=== PATIENT | male | born 1930 | race Caucasian/White ===

== ENCOUNTER 2016-09-06 10:36 | Inpatient (IN) ==
[2016-09-06] MEDS ORDERED: ONDANSETRON 4 MG/2 ML VIAL IV STA (11:20)
[2016-09-06] MEDS ORDERED: MECLIZINE 25 MG TABLET PO STA (11:20)
[2016-09-06] MEDS ORDERED: SODIUM CHLORIDE 0.9% 500 ML IV STA (11:20)
--- NOTE | 2016-09-06 11:36 | Emergency Department Note ---
IJan Mantricia, am scribing for, and in the presence of, Eric Gomes MD 11:24. Mireya Schilling Charles R, MD, personally performed the services described in this documentation, ascribed by Brandon Montoya in my presence, and it is both accurate and complete 136 . Arrival - Arrival Chief Complaint: Neuro Stated Complaint: possible stroke ED Nursing Triage Note: Bilat leg weakness and confusion onset yesterday - pt states that onset of s/s was approx 1500 - pt states that he made it to the bed but was unable to find his phone to call for help - pt states that he was able to get to his phone this am and called his nephew - pt is awake and alert - oriented at time of triage - accu check at time of triage 247 Mode of Arrival: Wheelchair Limitations: No Limitations Source: Patient Time Seen by Provider: 09/06/16 11:03 - History of Present Illness HPI Narrative: Pt is an 86 y/o white male arriving to ED by EMS with c/o possible CVA that may have occurred yesterday. Pt states that yesterday around 1530, he felt like something "hit him on top of his head" and he became very dizzy. He states the reason he did not come to ED yesterday is because he lives alone and he was not able to find his phone. Pt states that he now has slurred speech and staggers when he walks since the episode last night; this highly not normal since he runs 2 miles every day. Pt reports that he had open heart surgery in 2002. He denies smoking and drinking. Pt also denies SOB and chest pain. He reports no other complaints to ED. Onset (ago): hour(s) Consistency: constant Severity: moderate Allergies/Adverse Reactions: Allergies Allergy/AdvReac Type Severity Reaction Status Date / Time Sulfa (Sulfonamide Allergy Unknown/Unable Verified 11/23/14 16:00 Antibiotics) to obtain Home Medications: Home Medications Medication Instructions Recorded Confirmed Type Aspirin/Calcium Carbonate/Mag 325 mg PO DAILY 11/23/14 11/23/14 History [Aspirin Buffered 325 mg Tab] Furosemide [Furosemide] 1 tablet PO DAILY 11/23/14 11/23/14 History Glimepiride 2 mg PO AC BREAKFAST 11/23/14 11/23/14 History Metoprolol Succinate 25 mg PO BID 11/23/14 11/23/14 History NIFEdipine [Nifedipine ER] 30 mg PO DAILY 11/23/14 11/23/14 History Simvastatin 80 mg PO AC SUPPER 11/23/14 11/23/14 History cloNIDine HCl [Clonidine HCl] 0.2 mg PO BID 11/23/14 11/23/14 History glyBURIDE MICRONIZED [Glynase] 6 mg PO BID W/MEALS 11/23/14 11/23/14 History metOLazone [Metolazone] 2.5 mg PO QOTHER DAY 11/23/14 11/23/14 History Review of System - Review of System 12 point system: reviewed and no additional remarkable complaints except as stated - Review of System Constitutional: Absent: chills, diaphoresis Eyes: Absent: discharge, pain Head/Ears/Nose/Throat: Absent: earache Respiratory: Absent: cough, respiratory distress, wheezing Cardiovascular: Absent: chest pain, palpitations, dyspnea on exertion Gastrointestinal: Absent: abdominal pain, nausea, vomiting, diarrhea Genitourinary male: Absent: urgency, dysuria Musculoskeletal: Absent: arm pain, back pain, leg pain, neck pain Skin: Absent: rash, lesions Neurological: Present: vertigo, other (possible CVA). Absent: headache, weakness Psychiatric: Absent: anxiety, depression Medical,Surgical,& Family Hx - Medical History Cardio: History of: [place], Pacemaker Endocrine: History of: Diabetes Mellitus (NIDDM) - Surgical History Cardiac Surgeries: Sugical HX of: Cardiac Surgery, Carotid Endarterectomy HEENT Surgeries: Surgical HX of: Carotid Endarterectomy - Social History Smoking Status: Never smoker Frequency of Alcohol Use: None Type of Drug Use: None Exam Vital Signs: Vital Signs Temperature 97.1 F L 09/06/16 11:18 Pulse Rate 49 L 09/06/16 11:38 Respiratory Rate 16 09/06/16 11:38 Blood Pressure 106/51 09/06/16 11:38 O2 Sat by Pulse Oximetry 97 09/06/16 11:38 - General General appearance: alert, in no apparent distress - Head Head exam: Present: atraumatic, normocephalic, normal inspection - Eye Eye exam: Present: normal appearance, PERRL, EOMI, nystagmus (vertical and horizontal) - Expanded Eye Exam Pupils: Right: irregular (dialated) - ENT ENT exam: Present: normal exam, normal oropharynx, mucous membranes moist, TM's normal bilaterally, normal external ear exam, other (speaks with a thick tongue) - Neck Neck exam: Present: normal inspection, full ROM, trachea midline. Absent: tenderness - Chest Chest inspection: Present: normal inspection, symmetric chest wall rise. Absent : tenderness - Respiratory Respiratory exam: Present: normal lung sounds bilaterally - Cardiovascular Cardiovascular exam: Present: normal rhythm, bradycardia, murmur (4/6 systolic) - Abdominal Exam Abdominal exam: Present: soft, normal bowel sounds. Absent: distention, tenderness, guarding, rebound - Extremities Exam Extremities exam: Present: normal inspection, full ROM, normal capillary refill. Absent: tenderness, pedal edema - Back Exam Back exam: Present: normal inspection, full ROM. Absent: tenderness - Neurological Exam Neurological exam: Present: alert, oriented X3, CN II-XII intact, reflexes normal - Psychiatric Psychiatric exam: Present: normal affect, normal mood - Skin Skin exam: Present: warm, dry, intact, normal color Course - Consultations Consultation #1: Hospitalist will admit patient Time: 12:47 Results - Labs CBC & BMP: 09/06/16 11:40 09/06/16 11:40 Lab Results: I have reviewed the patients labs Labs: Laboratory Tests 09/06/16 09/06/16 09/06/16 11:40 11:40 11:40 WBC 17.0 H Hgb 13.8 L Hct 39.6 L Plt Count 123 L Neut % (Auto) 88.1 H Lymph % (Auto) 5.1 L Neut # (Auto) 14.9 H Lymph # (Auto) 0.[address] [place] # (Auto) 1.0 H Lymphocytes 11 L BUN 53 H Creatinine 2.40 H BUN/Creatinine Ratio 22.00 H Glucose 274 H Total Bilirubin 1.40 H Troponin I 0.049 H Albumin 3.3 L Albumin/Globulin Ratio 1.0 L Serum Alcohol < 15 L - Diagnostic Findings Procedure: Chest x-ray: report reviewed by me (Mild cardiomegaly status post sternotomy. Chronic change of the lungs. scattered scarlike densities noted within the lower lungs bilaterally. Question small right pleural fluid. Visualized osseous and surrounding soft tissue structures demonstrate no acute abnormality.), CT: report reviewed by me (Head: No acute intracranial abnormality demonstrated. Global volume loss and probable chronic microvascular ischemic change. ) Disposition Clinical Impression: Possible cerebral CVA, Dizziness, Unsteady gait, Slurred speech, Bradycardia, Sick sinus syndrome, Leukocytosis, Renal failure, Dehydration, Near syncope Case discussed with: patient, patient's family Disposition: Still a Patient Condition: Stable Time of Disposition: 12:49 NIH Stroke Score - Stroke Score Initial Assessment Level of Consciousness: Alert Level of Consciousness Questions: Answers Both Correctly Level of Consciousness Commands: Obeys Both Correctly Best Gaze: Normal Visual Patel: No Visual Loss Facial Palsy: Normal Motor - Right Arm: No Drift Motor - Left Arm: No Drift Motor - Right Leg: No Drift Motor - Left Leg: No Drift Limb Ataxia: Absent Sensory (Pin Prick): Normal Best Language: Mild to Moderate Aphasia Dysarthria: Mild to Moderate Extinction / Inattention (Neglect): No Neglect NIH Stroke Score: 2
--- NOTE | 2016-09-06 11:41 | CT Report ---
CT head/brain wo con Indication: Dizziness Comparison: None Technique: Multiple axial tomographic images of the brain were obtained without the use of intravenous contrast. Findings: Midline structures are nondisplaced. Moderate global volume loss present. Mild periventricular and subcortical hypoattenuation noted which is nonspecific but consistent with chronic microvascular ischemic change. No acute intracranial hemorrhage. Atherosclerotic calcifications present. Paranasal sinuses and mastoid air cells are clear. IMPRESSION: No acute intracranial abnormality demonstrated. Global volume loss and probable chronic microvascular ischemic change. The CT exam was performed using one or more of the following dose reduction techniques: Automated exposure control, adjustment of the mA and/or kV according to patient size, or use of iterative reconstruction technique. PROCEDURE INTERPRETED AT [facility] DEPARTMENT OF RADIOLOGY Final Report Signed by: Dr Petr Wei
--- NOTE | 2016-09-06 11:49 | XRay Report ---
XR chest 1V portable Indication: SOB Comparison: None Technique: Single frontal view of the chest. Findings: Mild cardiomegaly status post sternotomy. Chronic change of the lungs. Scattered scarlike densities noted within the lower lungs bilaterally. Question small right pleural fluid. Visualized osseous and surrounding soft tissue structures demonstrate no acute abnormality. IMPRESSION: As above. PROCEDURE INTERPRETED AT [facility] DEPARTMENT OF RADIOLOGY Final Report Signed by: Dr Petr Wei
[2016-09-06 11:58] LABS: Basophils % 0.2 % (0.0-0.8); Hematocrit 39.6 VOL% (42.0-52.0); Hemoglobin 13.8 GM/DL (14.0-18.0); Immature Granulocytes % 0.6 %; Immature Granulocytes Absolute 0.11 #; Lymphocytes # 0.9 10*3/uL (1.4-4.0); Lymphocytes % 5.1 % (21.2-54.2); Mean Corpuscular HGB Conc 34.8 GM/DL (32-36); Mean Corpuscular Hemoglobin 31 PG (27-34); Mean Corpuscular Volume 88.2 FL (87-102); Mean Platelet Volume 10.8 FL (9.6-12.0); Neutrophils # 14.9 10*3/uL (1.4-7.4); Neutrophils % 88.1 % (38.7-73.9); Platelet Count 123 T/CUMM (130-400); Red Blood Count 4.49 MC/CUMM (3.8-5.5); Red Cell Distribution Width 13.3 % (9.3-17.3)
--- NOTE | 2016-09-06 12:00 | EKG Report ---
Stationary ECG Study [facility] ER Test Date: 09/06/2016 11:58:25 AM Pat Name: ISA GRAF Department: Room: Gender: M Facilities Assistant: KAREN : 1930 Requested by: Eric Ward Order Number: [id number] Reading MD: NIDIA BALL Intervals [place] Rate: 46 P: 258 GA: 145 QRS: 34 QRSD: 76 T: 241 QT: 494 QTc: 453 Interpretive Statements Typical atrial flutter with bradycardia, likely junctional escape ST depression, possible digoxin effect Electronically Signed On 09-06-16 21:58:01 CDT by NIDIA BALL [email or web address]
[2016-09-06 12:08] LABS: INR 1.1; PT Patient Result 12.1 SECS
[2016-09-06 12:16] LABS: Band Neutrophils 3 % (0-10); Lymphocytes 11 % (20-55); Segmented Neutrophils 78 % (50-85); Total Cells Counted 100
[2016-09-06 12:17] LABS: Elliptocytes Few; Hypochromasia Slight; Platelet Estimate Normal
[2016-09-06 12:19] LABS: Albumin 3.3 G/DL (3.4-5.0); Bilirubin,Total 1.4 MG/DL (0.2-1.0); Calcium 9.2 MG/DL (8.5-10.1); Magnesium 1.9 MG/DL (1.8-2.4); Osmolality,Calculated 298.7 MOS/KG (273-304); Potassium 4.2 MMOL/L (3.5-5.1); Total Protein 6.5 G/DL (6.4-8.3); Troponin I Only 0.049 NG/ML (0.00-0.045)
[2016-09-06] MEDS ORDERED: MECLIZINE 25 MG TABLET ONE (12:22)
[2016-09-06 12:58] LABS: Sedimentation Rate-Westergren 34 MM/HR (0-20)
[2016-09-06] MEDS ORDERED: DEXTROSE 50% 25 GM/50 ML VIAL IV PRN (14:30)
[2016-09-06] MEDS ORDERED: LACTULOSE 20 GM/30 ML UDCUP PO PRN (14:30)
[2016-09-06] MEDS ORDERED: GLUCAGON 1 MG VIAL IM PRN (14:30)
[2016-09-06] MEDS ORDERED: ACETAMINOPHEN 325 MG TABLET PO PRN (14:30)
[2016-09-06] MEDS ORDERED: ONDANSETRON 4 MG/2 ML VIAL IV PRN (14:30)
[2016-09-06 14:44] LABS: Apearance,Urine CLEAR (Clear); Bacteria,Urine Occasional /HPF (Few); Bilirubin,Urine Negative (Negative); Blood, Urine Negative (Negative); Glucose,Urine (UA) 150 mg/dL (Negative); Hyaline Casts,Urine 5 /LPF (0-3); Ketones,Urine Negative (Negative); Nitrite,Urine Negative (Negative); Protein,Urine Negative; RBC,Urine 1 /HPF (0-4); Squamous Epithelial Cell,Urine Occasional /HPF (0-10); Urine Color Yellow (Yellow); Urine Specific Gravity 1.015 (1.001-1.035); Urine Urobilinogen < 2.0 EU/DL (0.2-1.0); WBC,Urine 1 /HPF (0-6)
[2016-09-06 14:48] LABS: Barbiturates Screen,Urine Negative (Negative); Benzodiazepines Screen,Urine Negative (Negative); Cannabinoid Screen,Urine Negative (Negative); Opiate Screen,Urine Negative (Negative); Phencyclidine Screen,Urine Negative (Negative)
[2016-09-06] MEDS ORDERED: ENOXAPARIN 30 MG/0.3 ML SYRINGE SUBCUT SCH (15:00)
[2016-09-06 15:10] LABS: Risk Ratio 2.35; VLDL CHOLESTEROL 19.6 MG/DL
--- NOTE | 2016-09-06 15:26 | Hospitalist History & Physical ---
Assessment and Plan (1) Atrial flutter by electrocardiogram Status: Acute Assessment and plan: This appears to be new onset. Patient is being admitted to the telemetry unit for close observation. Patient is bradycardic at 46 bpm. Echocardiogram and carotid Dopplers have been ordered. Cardiology has been consulted. Current Visit: Yes (2) Syncope Status: Acute Assessment and plan: This is an 86-year-old male admitted to loss of consciousness yesterday. His CT on admission is negative for acute intracranial abnormality. Obtain echocardiogram and carotid ultrasound in a.m. Consult cardiology. Current Visit: Yes (3) Leukocytosis Status: Acute Assessment and plan: White count 17. Etiology unclear. Blood cultures are pending. Start empiric antibiotic coverage Current Visit: Yes (4) Hypertension Status: Acute Assessment and plan: Appears to be well controlled. Continue home meds. Current Visit: Yes (5) Diabetes mellitus Status: Acute Assessment and plan: Accu-Cheks ACHS. Sliding scale insulin per protocol. Current Visit: Yes History of Present Illness Chief complaint: syncope, weakness, ataxia History of present illness: Mr. Frazier is a 86 year old male with a past medical history significant for coronary artery disease, hypertension, diabetes mellitus, hyperlipidemia who presents to the [facility] ED with complaints of possible CVA with possible onset yesterday. The patient reports that around 1530 yesterday he felt a "pop on top of his head" and experienced an apparent syncopal episode. The patient reports that he was lying in his bed when he "came to". He also notes that he was confused stating that he dreamed of his sister who has been for quite some time now. He also states that he cannot find his phone and was unable to contact anyone prior to this morning as he does live alone. He states that he has had approximately 2 weeks of dizziness and the top of his head. This is new for him as he states that he typically gets dizzy when he turns his head to the right. He has a history of coronary artery disease and has had CABG as well as a carotid endarterectomy performed. He states that he is relatively active and exercises daily walking 2-3 miles per day. Patient admits to experiencing lightheadedness and dizziness with associated headache but denies any of that today. On admission, the patient was ataxic and had slurred speech. However, on exam, the patient's speech was fluid and coherent. His motor strength was equal bilaterally. The patient states he feels as though he could walk if he wanted to. Preliminary labs reveal elevated white count at 17.0, troponin 0.049, BNP 589, BUN 53, creatinine 2.40, glucose 274. Urinalysis and toxicology are unremarkable. Patient is a full code. Case has been discussed with Dr. Gomes as well as Dr. Tay and the patient will be admitted to the hospital medicine service for further evaluation and treatment. Neurology will be consulted. Home Medications Medication Instructions Recorded Confirmed Type Furosemide [Furosemide] 1 tablet PO DAILY 11/23/14 11/23/14 History Metoprolol Succinate 25 mg PO BID 11/23/14 11/23/14 History NIFEdipine [Nifedipine ER] 30 mg PO DAILY 11/23/14 11/23/14 History Simvastatin 80 mg PO AC SUPPER 11/23/14 11/23/14 History cloNIDine HCl [Clonidine HCl] 0.2 mg PO BID 11/23/14 11/23/14 History glyBURIDE MICRONIZED [Glynase] 6 mg PO BID W/MEALS 11/23/14 11/23/14 History metOLazone [Metolazone] 2.5 mg PO QOTHER DAY 11/23/14 11/23/14 History Aspirin EC Tab 325 mg PO DAILY 09/06/16 09/06/16 History Glimepiride [Glimepiride] 4 mg PO BID 09/06/16 09/06/16 History Loratadine Tab [Claritin Tab] 10 mg PO DAILY PRN 09/06/16 09/06/16 History Niacin (Inositol Niacinate) 500 mg PO DAILY 09/06/16 09/06/16 History [Niacin 500 mg Capsule] Allergies Allergy/AdvReac Type Severity Reaction Status Date / Time Sulfa (Sulfonamide Allergy Unknown/Unable Verified 11/23/14 16:00 Antibiotics) to obtain Medical,Surgical,& Family Hx - Medical History Cardio: History of: [place], Pacemaker Endocrine: History of: Diabetes Mellitus (NIDDM) - Surgical History Cardiac Surgeries: Sugical HX of: Cardiac Surgery, Carotid Endarterectomy HEENT Surgeries: Surgical HX of: Carotid Endarterectomy - Family History Family History: Reports;: Family Diabetes, Family Heart Disease, Family Hypertension - Social History Smoking Status: Never smoker Frequency of Alcohol Use: None Type of Drug Use: None Marital Status: Lives With:: Alone Functional capacity: independent ambulation - Constitutional Constitutional: Present: headache(s). Absent: frequent falls, weakness - EENT Eyes: Present: requires corrective lense. Absent: blurry vision, loss of vision Ears: Absent: decreased hearing, ear pain Nose, mouth and throat: Present: headache(s). Absent: hoarseness, neck pain, vertigo - Cardiovascular Cardiovascular: Present: lightheadedness. Absent: chest pain at rest, chest pain with activity, dyspnea, dyspnea on exertion, edema, radiating jaw, neck or arm pain - Respiratory Respiratory: Absent: cough, dyspnea, hemoptysis, wheezing, pain on inspiration - Gastrointestinal Gastrointestinal: Present: change in bowel habits (decrease frequency of BM). Absent: abdominal pain, diarrhea, nausea, vomiting - Genitourinary Genitourinary: Absent: dysuria, flank pain, hematuria - Musculoskeletal Musculoskeletal: Absent: back pain, limited range of motion - Neurological Neurological: Present: abnormal gait, confusion, dizziness, syncope. Absent: numbness - Psychiatric Psychiatric: Absent: anxiety, depression - Endocrine Endocrine: Absent: cold intolerance, fatigue, heat intolerance - Hematologic/Lymphatic Hematologic/Lymphatic: Absent: easy bleeding, easy bruising Exam - Constitutional Vitals: Period Temp Pulse Resp BP Sys/Hurtado Pulse Ox Last 24 Hr 97.1 F-97.1 F 41-49 16-21 97-112/41-57 96-99 General appearance: normal weight, no acute distress - Head Head exam: Present: normal inspection, normocephalic, atraumatic. Absent: abrasion, laceration - Eye Eye exam: Present: EOMI. Absent: conjunctival injection, nystagmus, scleral icterus Pupils: Present: FATOUMATA. Absent: fixed, irregular - Respiratory Respiratory exam: Present: clear to auscultation bilaterally. Absent: rales, rhonchi, wheezes - Cardiovascular Cardiovascular exam: Present: bradycardia. Absent: carotid bruit, gallop, rubs - GI/Abdominal GI/Abdominal exam: Present: normal bowel sounds, soft. Absent: ascites, distended, mass, Monroe's sign, organomegaly, tenderness, rebound - Extremities Exam Extremities exam: Present: normal inspection, normal capillary refill, full ROM. Absent: edema - Back Exam Back exam: Present: normal inspection. Absent: CVA tenderness (L), CVA tenderness (R) - Neurological Exam Neurological exam: Present: alert, oriented X3, CN II-XII intact, reflexes normal. Absent: motor sensory deficit - Psychiatric Psychiatric exam: Present: normal affect, normal mood - Skin Skin exam: Present: normal color, warm, dry. Absent: abrasion, erythema, rash Results - Labs CBC & BMP: 09/06/16 11:40 09/06/16 11:40 Lab Results: I have reviewed the past 24 hour labs - EKG EKG results: interpreted by ERMD - Diagnostic Findings Procedure: Chest x-ray: image reviewed by me, report reviewed by me, CT: image reviewed by me, report reviewed by me Quality Measures - Stroke Onset of Symptoms Date: 09/05/16 Onset of Symptoms Time: 15:30 Symptom Onset Unknown: No
[2016-09-06] MEDS ORDERED: ENOXAPARIN 80 MG/0.8 ML SYRINGE SUBCUT ONE (17:54)
[2016-09-06] MEDS: INSULIN LISPRO 100 UNIT/ML SUBCUT SCH ×4 (20:20→22:37)
[2016-09-06] MEDS: GLIMEPIRIDE 4 MG TABLET PO SCH (22:25)
--- NOTE | 2016-09-06 22:27 | Ultrasound Report ---
US carotid duplex BI Indication: Syncope Comparison: None. Technique: Using transcutaneous probe, routine carotid arterial duplex ultrasound performed. Ultrasound images were captured and stored. Estimation of stenosis will be made using indirect NASCET criteria. Ultrasound images were captured and stored. Findings: Grayscale and color Doppler findings: Echogenic plaque is demonstrated within the right common carotid artery and carotid artery bulb. Overall amount appears small. Transverse images demonstrate minimal suggested stenosis. The left common carotid artery and carotid artery bulb additionally demonstrate echogenic plaque, small in amount, transverse images demonstrating minimal stenosis. Peak systolic velocities are as follows (centimeters per second): Right CCA: 83. Right proximal ICA: 135. Right distal ICA: 82. Right ICA/CCA ratio: 1.6. Left CCA: 100. Left proximal ICA: 105. Left distal ICA: 95. Left ICA/CCA ratio: 126. External carotid arteries: External carotid arteries are bilaterally patent. Vertebral arteries: Vertebral arteries bilaterally demonstrate antegrade flow. Impression: 1. Velocities within the proximal right cervical segment ICA following the range of 50-69% stenosis. Bradshaw scale transverse ultrasound images through this region suggest mild stenosis. CTA may be useful for further characterization. 09/06/2016 10:22 PM PROCEDURE INTERPRETED AT [facility] DEPARTMENT OF RADIOLOGY Final Report Signed by: Dr. Carlos Robert
[2016-09-06] MEDS: cefTRIAXone 1,000 MG in SODIUM CHLORIDE 0.9% 100 ML IV SCH (22:28)
[2016-09-06] MEDS: AZITHROMYCIN INJ 500 MG in SODIUM CHLORIDE 0.9% 250 ML IV SCH (23:48)
[2016-09-07 07:34] LABS: Calcium 8.3 MG/DL (8.5-10.1); Osmolality,Calculated 300.7 MOS/KG (273-304); Potassium 4.1 MMOL/L (3.5-5.1)
[2016-09-07] MEDS ORDERED: glyBURIDE MICRONIZED 6 MG TABLET PO SCH (08:00)
[2016-09-07] MEDS ORDERED: ASPIRIN EC 325 MG TABLET PO SCH (09:00)
[2016-09-07 09:19] LABS: Basophils % 0.3 % (0.0-0.8); Eosinophils # 0.1 10*3/uL (0.0-0.87); Hematocrit 38.6 VOL% (42.0-52.0); Hemoglobin 13.1 GM/DL (14.0-18.0); Immature Granulocytes % 0.9 %; Immature Granulocytes Absolute 0.12 #; Lymphocytes # 1.8 10*3/uL (1.4-4.0); Lymphocytes % 12.9 % (21.2-54.2); Mean Corpuscular HGB Conc 33.9 GM/DL (32-36); Mean Corpuscular Hemoglobin 30 PG (27-34); Mean Corpuscular Volume 88.3 FL (87-102); Monocytes # 0.5 10*3/uL (0.11-0.8); Monocytes % 3.7 % (1.7-12.7); Neutrophils # 11.3 10*3/uL (1.4-7.4); Neutrophils % 81.2 % (38.7-73.9); Platelet Count 107 T/CUMM (130-400); Red Blood Count 4.37 MC/CUMM (3.8-5.5); Red Cell Distribution Width 13.2 % (9.3-17.3); White Blood Count 13.9 T/CUMM (4-12)
[2016-09-07] MEDS: DOCUSATE SODIUM 100 MG CAPSULE PO PRN (09:58)
[2016-09-07] MEDS: GLIMEPIRIDE 4 MG TABLET PO SCH (09:58)
[2016-09-07] MEDS: PANTOPRAZOLE 40 MG TABLET PO SCH (09:58)
[2016-09-07] MEDS: NIACIN 500 MG TABLET PO SCH (09:58)
[2016-09-07] MEDS: INSULIN LISPRO 100 UNIT/ML SUBCUT SCH ×5 (09:59→22:31)
--- NOTE | 2016-09-07 12:21 | Cardiology Consult Note ---
Assessment and Plan - Time spent with patient Time spent with patient: Greater than 30 minutes (due to assessment, plan, and documentation) (1) Syncope Status: Acute Assessment and plan: SEE PLAN OF CARE LISTED BELOW Current Visit: Yes (2) Atrial flutter by electrocardiogram Status: Acute Assessment and plan: SEE PLAN OF CARE LISTED BELOW Current Visit: Yes (3) Bradycardia Status: Acute Assessment and plan: SEE PLAN OF CARE LISTED BELOW Current Visit: Yes (4) Coronary artery disease Status: Chronic Assessment and plan: SEE PLAN OF CARE LISTED BELOW Current Visit: Yes (5) Hypertension Status: Chronic Assessment and plan: SEE PLAN OF CARE LISTED BELOW Current Visit: Yes (6) Hyperlipidemia Status: Chronic Assessment and plan: SEE PLAN OF CARE LISTED BELOW Current Visit: Yes (7) Diabetes mellitus Status: Chronic Assessment and plan: SEE PLAN OF CARE LISTED BELOW Current Visit: Yes (8) Chronic kidney disease Status: Chronic Assessment and plan: SEE PLAN OF CARE LISTED BELOW Current Visit: Yes (9) Leukocytosis Status: Acute Assessment and plan: SEE PLAN OF CARE LISTED BELOW Current Visit: Yes History of Present Illness - Data of Consult Patient: known to practice within the last 3 years (followed by Dr. Goldsmith) Consult date: 09/06/16 Requesting Physician: Kody Hurt - Consult Narrative Reason for consult: syncope, aflutter History of present illness: FLEXIBLE NANNY: DR. GOLDSMITH Mr. Frazier is a 86 year old male with a history of coronary artery disease, hypertension, hyperlipidemia, type 2 diabetes mellitus, chronic kidney disease. He is status post coronary artery bypass grafting August 06 2001 with SINGH to the LAD and vein graft to the circumflex marginal and right coronary arteries. He is status post right carotid endarterectomy July 03, 2002. He is a former smoker having quit in 1996. He is active and walks 2-3 miles daily. On 09/05/2016 he was in his usual state of health and had returned home from [facility] when he felt like someone hit him on the top of his head and experienced an apparent syncopal episode. When he came to, he reports he could not walk and had to crawl down the young to his bed. He also notes that he was confused stating that he dreamed of his sister who has been for quite some time now. He also states that he could not find his phone and was unable to contact anyone prior to yesterday morning as he does live alone. He called his nephew and when his nephew arrived, he noticed that his uncle had an unsteady gait and slurred and stuttering speech. On exam today, Mr. Frazier has no noticeable deficits. His motor strength is equal bilaterally and his speech is fluid and coherent. CT scan of the head was negative for acute intracranial abnormalities. He is for MRI of the brain today. He denies a history of irregular heart rhythm but his EKG/telemetry shows atrial flutter with junctional escape. He has been bradycardic and his metoprolol is currently being held. He had some trivial troponin elevation in the setting of an elevated creatinine. Urine toxicology was negative. 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 CTA is recommended for further characterization. ASSESSMENT/PLAN: 1. SYNCOPE - Carotid doppler ultrasound reveals right ICA with 50-69% stenosis. CT of the brain was negative. He is for MRI of the brain for further evaluation. 2. ATRIAL FLUTTER - He is currently being anticoagulated with weight based Lovenox. Treatment is limited due to his bradycardia. Certainly if his bradycardia persisits, he may be a candidate for pacemaker implantation. 3. BRADYCARDIA - Will continue to hold zackery blocking agents. 4. CORONARY ARTERY DISEASE - He is status post coronary artery bypass grafting August 06 2001 with SINGH to the LAD and vein graft to the circumflex marginal and right coronary arteries. Denies recent chest pain, heaviness, or tightness. Denies recent dyspnea or dyspnea on exertion. 5. HYPERTENSION - Currently well controlled. Will continue to monitor and adjust accordingly. 6. HYPERLIPIDEMIA - Continue lipid lowering agent. FLP in AM. 7. DIABETES - [facility] is following. He is on accuchecks with sliding scale insulin. 8. CHRONIC KIDNEY DISEASE - Monitor BMP. Will try to avoid nephrotoxic agents. 9. LEUKOCYTOSIS - He has been started on empiric antibiotics. Blood cultures are pending. He has been afebrile. Dr. Ford to follow with further plan and addendum. CC: Federica Moreau MD - Home Medications and Allergies Home Medications: Home Medications Medication Instructions Recorded Confirmed Type Furosemide [Furosemide] 40 mg PO DAILY 11/23/14 09/06/16 History Metoprolol Succinate 25 mg PO BID 11/23/14 09/06/16 History NIFEdipine [Nifedipine ER] 30 mg PO DAILY 11/23/14 09/06/16 History Simvastatin 80 mg PO AC SUPPER 11/23/14 09/06/16 History cloNIDine HCl [Clonidine HCl] 0.2 mg PO BID 11/23/14 09/06/16 History glyBURIDE MICRONIZED [Glynase] 6 mg PO BID W/MEALS 11/23/14 09/06/16 History metOLazone [Metolazone] 2.5 mg PO QOTHER DAY 11/23/14 09/06/16 History Aspirin EC Tab 325 mg PO DAILY 09/06/16 09/06/16 History Glimepiride [Glimepiride] 4 mg PO BID 09/06/16 09/06/16 History Loratadine Tab [Claritin Tab] 10 mg PO DAILY PRN 09/06/16 09/06/16 History Niacin (Inositol Niacinate) 500 mg PO DAILY 09/06/16 09/06/16 History [Niacin 500 mg Capsule] Allergies/Adverse Reactions: Allergies Allergy/AdvReac Type Severity Reaction Status Date / Time Sulfa (Sulfonamide Allergy Unknown/Unable Verified 11/23/14 16:00 Antibiotics) to obtain Review of systems: - Constitutional: Present: weakness, As per HPI. Absent: anorexia, chills, daytime sleepiness, excessive sweating, fever(s), frequent falls, headache(s), increased appetite, lethargy, malaise, night sweats, stops breathing during sleep, weight gain, weight loss, fatigue. - EENT Eyes: Present: As per HPI. Absent: blurry vision, diplopia, loss of vision Ears: Present: As per HPI. Absent: decreased hearing, ear discharge, ear pain Nose, mouth and throat: Present: As per HPI. Absent: dysphagia, epistaxis, headache(s), hoarseness, lip swelling, nasal congestion, neck mass, neck pain, sinus pressure, sore throat, throat swelling, tongue swelling, vertigo - Cardiovascular: Present: lightheadedness, as per HPI. Absent: chest pain at rest, chest pain with activity, dyspnea, dyspnea on exertion, edema, claudication, diaphoresis, radiating jaw, neck or arm pain, orthopnea, palpitations, PND - Respiratory: Present: as per HPI. Absent: dyspnea, dyspnea on exertion, cough , hemoptysis, wheezing, snoring, pain on inspiration - Gastrointestinal: Present: As per HPI. Absent: abdominal pain, bloating, change in bowel habits, constipation, diarrhea, heartburn, hematemesis, hematochezia, loose stools, melena, nausea, vomiting - Genitourinary: Present: As per HPI. Absent: difficulty urinating, dysuria, flank pain, hematuria, nocturia, urinary frequency, urinary incontinence - Musculoskeletal: Present: As per HPI. Absent: arthralgias, back pain, joint swelling, limited range of motion, muscle cramps, muscle weakness, myalgias - Neurological: Present: abnormal gait, abnormal speech, dizziness, confusion, disequilibrium, syncope, As per HPI. Absent: behavioral changes, convulsions, focal weakness, frequent falls, headache(s), memory loss, numbness, paresthesias , radicular pain, tremor(s) - Psychiatric: Present: As per HPI. Absent: anxiety, confusion, depression, panic attacks - Endocrine: Present: As per HPI. Absent: cold intolerance, fatigue, heat intolerance, polydipsia, polyphagia - Hematologic/Lymphatic: Present: As per HPI. Absent: easy bleeding, easy bruising, lymphadenopathy Medical,Surgical,& Family Hx - Medical History Cardio: History of: NV, Pacemaker Endocrine: History of: Diabetes Mellitus (NIDDM) - Surgical History Cardiac Surgeries: Sugical HX of: Cardiac Surgery, Carotid Endarterectomy Thoracic Surgeries: Patient denies;: Organ Transplant HEENT Surgeries: Surgical HX of: Carotid Endarterectomy - Family History Family History: Reports;: Family Diabetes, Family Heart Disease, Family Hypertension - Social History Smoking Status: Never smoker Frequency of Alcohol Use: None Type of Drug Use: None Marital Status: Lives With:: Alone Functional capacity: independent ambulation Physical Examination Vital Signs Temp Pulse Resp BP Pulse Ox 97.1 F L 49 L 20 103/43 97 09/06/16 10:48 09/06/16 10:48 09/06/16 10:48 09/06/16 10:48 09/06/16 10:48 Other: General appearance: Pleasant and cooperative. Normal weight, no acute distress. - Head Head exam: Present: normal inspection, normocephalic, atraumatic. Absent: hematoma, laceration - Eye Eye exam: Present: EOMI. Absent: conjunctival injection, nystagmus, periorbital swelling, scleral icterus, laceration to eyelids Pupils: Present: PERRL. Absent: constricted, dilated, fixed, irregular, unequal - ENT ENT exam: Present: normal exam, normal external ear exam - Neck Neck exam: Present: normal inspection. Absent: lymphadenopathy, meningismus, tenderness, thyromegaly - Respiratory Respiratory exam: Present: clear to auscultation bilaterally. Absent: accessory muscle use, chest wall tenderness - Cardiovascular Cardiovascular exam: Present: regular rate and rhythm, bradycardia, right carotid bruit, systolic murmur. Absent: gallop, JVD, rubs - GI/Abdominal GI/Abdominal exam: Present: normal bowel sounds, soft. Absent: distended, firm , guarding, hernia, mass, tenderness, rebound. - Extremities Exam Extremities exam: Present: normal inspection, normal capillary refill. Upper extremity pulses 2+. Lower extremity pulses 2+. Absent: calf tenderness, edema -Musculoskeletal Exam Musculoskeletal: Present: No Fluid Collection, No Pain, Normal Range of Motion - Back Exam Back exam: Present: normal inspection. Absent: muscle spasm, vertebral tenderness - Neurological Exam Neurological exam: Present: alert, oriented X3, grossly intact without resting or essential tremor - Psychiatric Psychiatric exam: Present: normal affect, normal mood - Skin Skin exam: Present: normal color, warm, dry, intact. Absent: cyanosis, diaphoretic, rash, urticaria Result/EKG - Labs CBC & BMP: 09/07/16 09:01 09/07/16 06:59 Lab Results: I have reviewed the past 24 hour labs Labs: Laboratory Results - last 24 hr 09/06/16 09/06/16 09/06/16 10:56 11:40 11:40 WBC 17.0 H RBC 4.49 Hgb 13.8 L Hct 39.6 L MCV 88.2 MCH 31 MCHC 34.8 RDW 13.3 Plt Count 123 L MPV 10.8 Neut % (Auto) 88.1 H Lymph % (Auto) 5.1 L Benson % (Auto) 6.0 Eos % (Auto) 0.0 Baso % (Auto) 0.2 Neut # (Auto) 14.9 H Lymph # (Auto) 0.9 L Benson # (Auto) 1.0 H Eos # (Auto) 0.0 Baso # (Auto) 0.0 Total Counted 100 Immature Gran % 0.6 Nucleated RBC % 0.0 Immature Gran # 0.11 Segmented Neutrophils 78 Band Neutrophils 3 Lymphocytes 11 L Monocytes 8 Nucleated RBCs # 0.00 Platelet Estimate Normal Hypochromasia Slight Elliptocytes Few Morphology Comment ESR Westergren 34 H INR 1.1 PT Patient/Control Mix 12.1 Sodium Potassium Chloride Carbon Dioxide Anion Gap BUN Creatinine GFR Calculation BUN/Creatinine Ratio Glucose POC Glucose 247 H Calculated Osmolality Calcium Magnesium Total Bilirubin AST ALT Alkaline Phosphatase Troponin I B-Natriuretic Peptide Total Protein Albumin Globulin Albumin/Globulin Ratio Triglycerides Cholesterol LDL Cholesterol VLDL Cholesterol HDL Cholesterol Heart Disease Risk Ratio Urine Color Urine Appearance Urine pH Ur Specific Odin Urine Protein Urine Glucose (UA) Urine Ketones Urine Blood Urine Nitrate Urine Bilirubin Urine Urobilinogen Urine Leukocytes Urine RBC Urine WBC Ur Squamous Epith Cells Urine Bacteria Hyaline Casts Ur Culture Indicated? Urine Opiates Screen Ur Barbiturates Screen Ur Phencyclidine Scrn U Amphetamine/Methamph U Benzodiazepines Scrn U Cocaine Metab Screen U Cannabinoids Screen Serum Alcohol Blood Type Antibody Screen 09/06/16 09/06/16 09/06/16 11:40 11:40 11:40 WBC RBC Hgb Hct MCV MCH MCHC RDW Plt Count MPV Neut % (Auto) Lymph % (Auto) Benson % (Auto) Eos % (Auto) Baso % (Auto) Neut # (Auto) Lymph # (Auto) Benson # (Auto) Eos # (Auto) Baso # (Auto) Total Counted Immature Gran % Nucleated RBC % Immature Gran # Segmented Neutrophils Band Neutrophils Lymphocytes Monocytes Nucleated RBCs # Platelet Estimate Hypochromasia Elliptocytes Morphology Comment ESR Westergren INR PT Patient/Control Mix Sodium 138 Potassium 4.2 Chloride 101 Carbon Dioxide 28 Anion Gap 13.2 BUN 53 H Creatinine 2.40 H GFR Calculation 25 BUN/Creatinine Ratio 22.00 H Glucose 274 H POC Glucose Calculated Osmolality 298.7 Calcium 9.2 Magnesium 1.9 Total Bilirubin 1.40 H AST 16 ALT 19 Alkaline Phosphatase 54 Troponin I 0.049 H B-Natriuretic Peptide 589 H Total Protein 6.5 Albumin 3.3 L Globulin 3.2 Albumin/Globulin Ratio 1.0 L Triglycerides Cholesterol LDL Cholesterol VLDL Cholesterol HDL Cholesterol Heart Disease Risk Ratio Urine Color Urine Appearance Urine pH Ur Specific Odin Urine Protein Urine Glucose (UA) Urine Ketones Urine Blood Urine Nitrate Urine Bilirubin Urine Urobilinogen Urine Leukocytes Urine RBC Urine WBC Ur Squamous Epith Cells Urine Bacteria Hyaline Casts Ur Culture Indicated? Urine Opiates Screen Ur Barbiturates Screen Ur Phencyclidine Scrn U Amphetamine/Methamph U Benzodiazepines Scrn U Cocaine Metab Screen U Cannabinoids Screen Serum Alcohol < 15 L Blood Type Antibody Screen 09/06/16 09/06/16 09/06/16 11:47 14:22 14:22 WBC RBC Hgb Hct MCV MCH MCHC RDW Plt Count MPV Neut % (Auto) Lymph % (Auto) Benson % (Auto) Eos % (Auto) Baso % (Auto) Neut # (Auto) Lymph # (Auto) Benson # (Auto) Eos # (Auto) Baso # (Auto) Total Counted Immature Gran % Nucleated RBC % Immature Gran # Segmented Neutrophils Band Neutrophils Lymphocytes Monocytes Nucleated RBCs # Platelet Estimate Hypochromasia Elliptocytes Morphology Comment ESR Westergren INR PT Patient/Control Mix Sodium Potassium Chloride Carbon Dioxide Anion Gap BUN Creatinine GFR Calculation BUN/Creatinine Ratio Glucose POC Glucose Calculated Osmolality Calcium Magnesium Total Bilirubin AST ALT Alkaline Phosphatase Troponin I B-Natriuretic Peptide Total Protein Albumin Globulin Albumin/Globulin Ratio Triglycerides 98 Cholesterol 127 LDL Cholesterol 60.0 VLDL Cholesterol 19.6 HDL Cholesterol 54 Heart Disease Risk Ratio 2.35 Urine Color Yellow Urine Appearance Clear Urine pH 5.0 Ur Specific Odin 1.015 Urine Protein Negative Urine Glucose (UA) 150 Urine Ketones Negative Urine Blood Negative Urine Nitrate Negative Urine Bilirubin Negative Urine Urobilinogen < 2.0 H Urine Leukocytes Negative Urine RBC 1 Urine WBC 1 Ur Squamous Epith Cells Occasional Urine Bacteria Occasional Hyaline Casts 5 Ur Culture Indicated? Not indicated Urine Opiates Screen Negative Ur Barbiturates Screen Negative Ur Phencyclidine Scrn Negative U Amphetamine/Methamph Negative U Benzodiazepines Scrn Negative U Cocaine Metab Screen Negative U Cannabinoids Screen Negative Serum Alcohol Blood Type Antibody Screen 09/06/16 09/06/16 09/06/16 18:18 18:44 19:37 WBC RBC Hgb Hct MCV MCH MCHC RDW Plt Count MPV Neut % (Auto) Lymph % (Auto) Benson % (Auto) Eos % (Auto) Baso % (Auto) Neut # (Auto) Lymph # (Auto) Benson # (Auto) Eos # (Auto) Baso # (Auto) Total Counted Immature Gran % Nucleated RBC % Immature Gran # Segmented Neutrophils Band Neutrophils Lymphocytes Monocytes Nucleated RBCs # Platelet Estimate Hypochromasia Elliptocytes Morphology Comment ESR Westergren INR PT Patient/Control Mix Sodium Potassium Chloride Carbon Dioxide Anion Gap BUN Creatinine GFR Calculation BUN/Creatinine Ratio Glucose POC Glucose 285 H Calculated Osmolality Calcium Magnesium Total Bilirubin AST ALT Alkaline Phosphatase Troponin I 0.027 B-Natriuretic Peptide Total Protein Albumin Globulin Albumin/Globulin Ratio Triglycerides Cholesterol LDL Cholesterol VLDL Cholesterol HDL Cholesterol Heart Disease Risk Ratio Urine Color Urine Appearance Urine pH Ur Specific Odin Urine Protein Urine Glucose (UA) Urine Ketones Urine Blood Urine Nitrate Urine Bilirubin Urine Urobilinogen Urine Leukocytes Urine RBC Urine WBC Ur Squamous Epith Cells Urine Bacteria Hyaline Casts Ur Culture Indicated? Urine Opiates Screen Ur Barbiturates Screen Ur Phencyclidine Scrn U Amphetamine/Methamph U Benzodiazepines Scrn U Cocaine Metab Screen U Cannabinoids Screen Serum Alcohol Blood Type O POSITIVE Antibody Screen Negative 09/06/16 09/07/16 09/07/16 20:59 06:59 07:02 WBC RBC Hgb Hct MCV MCH MCHC RDW Plt Count MPV Neut % (Auto) Lymph % (Auto) Benson % (Auto) Eos % (Auto) Baso % (Auto) Neut # (Auto) Lymph # (Auto) Benson # (Auto) Eos # (Auto) Baso # (Auto) Total Counted Immature Gran % Nucleated RBC % Immature Gran # Segmented Neutrophils Band Neutrophils Lymphocytes Monocytes Nucleated RBCs # Platelet Estimate Hypochromasia Elliptocytes Morphology Comment ESR Westergren INR PT Patient/Control Mix Sodium 138 Potassium 4.1 Chloride 101 Carbon Dioxide 28 Anion Gap 13.1 BUN 65 H D Creatinine 2.20 H GFR Calculation 28 BUN/Creatinine Ratio 29.00 H Glucose 221 H POC Glucose 267 H 161 H Calculated Osmolality 300.7 Calcium 8.3 L Magnesium Total Bilirubin AST ALT Alkaline Phosphatase Troponin I B-Natriuretic Peptide Total Protein Albumin Globulin Albumin/Globulin Ratio Triglycerides Cholesterol LDL Cholesterol VLDL Cholesterol HDL Cholesterol Heart Disease Risk Ratio Urine Color Urine Appearance Urine pH Ur Specific Odin Urine Protein Urine Glucose (UA) Urine Ketones Urine Blood Urine Nitrate Urine Bilirubin Urine Urobilinogen Urine Leukocytes Urine RBC Urine WBC Ur Squamous Epith Cells Urine Bacteria Hyaline Casts Ur Culture Indicated? Urine Opiates Screen Ur Barbiturates Screen Ur Phencyclidine Scrn U Amphetamine/Methamph U Benzodiazepines Scrn U Cocaine Metab Screen U Cannabinoids Screen Serum Alcohol Blood Type Antibody Screen 09/07/16 09:01 WBC 13.9 H RBC 4.37 Hgb 13.1 L Hct 38.6 L MCV 88.3 MCH 30 MCHC 33.9 RDW 13.2 Plt Count 107 L MPV 11.0 Neut % (Auto) 81.2 H Lymph % (Auto) 12.9 L Benson % (Auto) 3.7 Eos % (Auto) 1.0 Baso % (Auto) 0.3 Neut # (Auto) 11.3 H Lymph # (Auto) 1.8 Benson # (Auto) 0.5 Eos # (Auto) 0.1 Baso # (Auto) 0.0 Total Counted Immature Gran % 0.9 Nucleated RBC % 0.0 Immature Gran # 0.12 Segmented Neutrophils Band Neutrophils Lymphocytes Monocytes Nucleated RBCs # 0.00 Platelet Estimate Hypochromasia Elliptocytes Morphology Comment ESR Westergren INR PT Patient/Control Mix Sodium Potassium Chloride Carbon Dioxide Anion Gap BUN Creatinine GFR Calculation BUN/Creatinine Ratio Glucose POC Glucose Calculated Osmolality Calcium Magnesium Total Bilirubin AST ALT Alkaline Phosphatase Troponin I B-Natriuretic Peptide Total Protein Albumin Globulin Albumin/Globulin Ratio Triglycerides Cholesterol LDL Cholesterol VLDL Cholesterol HDL Cholesterol Heart Disease Risk Ratio Urine Color Urine Appearance Urine pH Ur Specific Odin Urine Protein Urine Glucose (UA) Urine Ketones Urine Blood Urine Nitrate Urine Bilirubin Urine Urobilinogen Urine Leukocytes Urine RBC Urine WBC Ur Squamous Epith Cells Urine Bacteria Hyaline Casts Ur Culture Indicated? Urine Opiates Screen Ur Barbiturates Screen Ur Phencyclidine Scrn U Amphetamine/Methamph U Benzodiazepines Scrn U Cocaine Metab Screen U Cannabinoids Screen Serum Alcohol Blood Type Antibody Screen - EKG EKG results: interpreted by me (atrial flutter) Quality Measures - Stroke Onset of Symptoms Date: 09/05/16 Onset of Symptoms Time: 15:30 Symptom Onset Unknown: No
--- NOTE | 2016-09-07 15:36 | Magnetic Resonance Report ---
MR head/brain wo con Indication: Rule out CVA. Comparison: CT head 09/06/2016. Technique: Using 1.5 Tammie magnet, multisequence multiplanar MR imaging of the brain was performed without the administration of intravenous contrast. Findings: There is no evidence of restricted diffusion. There is no evidence of acute intracranial hemorrhage, mass, or infarction. Ventricular system demonstrates no evidence of acute pathology. Scattered T2/FLAIR signal hyperintensities are noted bilaterally within the periventricular white matter as well as the bilateral centrum semiovale. These are most compatible with microvascular ischemic changes. The basal cisterns appear patent. The arterial flow voids appear intact. The posterior fossa as well as cerebellum demonstrate no evidence of acute pathology. The orbits and globes demonstrate no evidence of acute pathology. The paranasal sinuses and mastoid air cells demonstrate no evidence of significant mucoperiosteal thickening. The calvarium as well as the soft tissues overlying the calvarium demonstrate no evidence of acute pathology. No unexpected areas of enhancement are demonstrated within the brain, meninges, or orbits. Impression: 1. There is no evidence of acute intracranial pathology. 2. Generalized renal atrophy is present. 3. Bilateral areas of increased signal within the white matter are present compatible with microvascular ischemic change. 09/07/2016 3:31 PM PROCEDURE INTERPRETED AT [facility] DEPARTMENT OF RADIOLOGY Final Report Signed by: Dr. Carlos Robert
--- NOTE | 2016-09-07 15:54 | Hospitalist Progress Note ---
Assessment and Plan (1) TIA (transient ischemic attack) Status: Acute Assessment and plan: Consistent with reports from family, MRI of the brain showed no evidence of of stroke, patient does have carotid stenosis on the right, would anticoagulate with Eliquis. Current Visit: Yes (2) Atrial flutter by electrocardiogram Status: Acute Assessment and plan: Dr. Ford to see patient would give renal adjusted Eliquis. Current Visit: Yes (3) Acute on chronic renal failure Status: Acute Assessment and plan: us renal, Elevated BNP, will give lasix and monitor renal function. Current Visit: Yes (4) Bradycardia Status: Acute Assessment and plan: probably due to clonidine, will stop and try to use something different Current Visit: Yes (5) Leukocytosis Status: Acute Assessment and plan: Chest x-ray bilateral opacities could be infiltrates but also could be pulmonary edema with his elevated BNP agree with Rocephin and azithromycin, blood cultures pending, UA negative Current Visit: Yes (6) Diabetes mellitus Status: Chronic Assessment and plan: Blood sugars not well controlled, with his renal failure Lantus would be the best alternative. Current Visit: Yes (7) Hyperlipidemia Status: Chronic Assessment and plan: good control with current regimen Current Visit: Yes (8) Hypertension Status: Acute Assessment and plan: hold clonidine and nifedipine, start norvasc, hydralazine, Current Visit: Yes Hospitalist: Subjective Interval history: Question whether patient had a TIA. Has patient has returned to normal. He still in atrial flutter. Both neurology and cardiology service to see him today Exam - Constitutional Vitals: Period Temp Pulse Resp BP Sys/Hurtado Pulse Ox Last 24 Hr 96.7 F-99.2 F 47-70 16-47 100-145/41-76 95-100 Exam: Heart Rate-[RRR sounds regular Lungs-[CTAB] GI-[+bs soft, NT] Ext-[no edema] Neuro [Motor 5/5], [alert and oriented times 3] psych [normal mood and affect] General [no acute distress] Results - Labs CBC & BMP: 09/07/16 09:01 09/07/16 06:59 Lab Results: I have reviewed the past 24 hour labs - Diagnostic Findings Procedure: MRI: report reviewed by me (No evidence of stroke. But does have bilateral areas of micro-ischemic changes), Ultrasound: report reviewed by me ( Right carotid Doppler shows 50-69% stenosis.) Quality Measures - Stroke Onset of Symptoms Date: 09/05/16 Onset of Symptoms Time: 15:30 Symptom Onset Unknown: No
[2016-09-07] MEDS ORDERED: SIMVASTATIN 40 MG TABLET PO SCH (16:30)
[2016-09-07 16:31] LABS: INR 1.1; PT Patient Result 11.2 SECS; Partial Thromboplastin Time 34.3 SECS (0-40)
--- NOTE | 2016-09-07 16:32 | ECHO Report ---
Kevin Frazier 09/07/2016 Exam Date: 10:01 Referring Physician: Lolita HazelTechnologist: Age: 86 Ht (in): 68 Wt (lb): 153 MExam [facility] Gender: Echo [id number]: Syncope and collapse, Atrial flutterIndications: CVA, elev. troponin, leukocytosis, diabetes BP: 143 / 65 HR: 70 SinusRhythm: Technical Quality: IMPRESSIONS Normal left ventricular size, with mild concentric hypertrophy, with normal systolic function. Estimated left ventricular ejection fraction 55%. Grade 3 diastolic dysfunction. Mildly increased right ventricular size, with normal systolic function. Moderate biatrial enlargement. Mild mitral valve sclerosis. Mild to moderate mitral valve regurgitation. Severe calcific aortic valve stenosis. Severe pulmonary hypertension, with moderate tricuspid regurgitation. Mild pulmonic valve insufficiency. MEASUREMENTS (Male / Female) Normal Values 2D ECHO LV Diastolic Diameter PLAX 3.7 cm 4.2 - 5.9 / 3.9 - 5.3 cm LV Systolic Diameter PLAX 2.0 cm LV Fractional Shortening PLAX 44.1 % IVS Diastolic Thickness 1.3 cm 0.6 - 1.0 / 0.6 - 0.9 cm LVPW Diastolic Thickness 1.3 cm 0.6 - 1.0 / 0.6 - 0.9 cm RV Internal Dim ED PLAX 3.1 cm Aortic Root Diameter 2.0 cm LA Systolic Diameter LX 5.2 cm 3.0 - 4.0 / 2.7 - 3.8 cm DOPPLER TR Peak Velocity 379.0 cm/s TR Peak Gradient 57.5 mmHg FINDINGS Left Ventricle Normal left ventricular size, with mild concentric hypertrophy, with normal systolic function. Estimated left ventricular ejection fraction 55%. Grade 3 diastolic dysfunction. Right Ventricle Mildly increased right ventricular size, with normal systolic function. Right Atrium Moderate right atrial enlargement. Left Atrium Moderate left atrial enlargement. Mitral Valve Mild mitral valve sclerosis. Mild to moderate mitral valve regurgitation. Aortic Valve The aortic valve is calcified. Severe stenosis, with calculated valve area of 0.8 cm. Systolic gradient peak 64, mean 31 mmHg. Tricuspid Valve Morphologically normal tricuspid valve. Moderate tricuspid valve regurgitation. Tricuspid regurgitation velocities suggest a PAP of 67 mmHg. Pulmonic Valve Structurally normal pulmonic valve, with mild insufficiency. Pericardium No pericardial effusion. Aorta Normal size aortic root and proximal ascending aorta. Oscar Ford (Electronically Signed) 07 Sep 2016 16:31Final Date:
--- NOTE | 2016-09-07 16:46 | Ultrasound Report ---
History: Renal failure, acute versus chronic. Elevated creatinine Date: 09/07/2016 Study: Renal ultrasound kidneys only Comparison exam: No previous similar Real-time ultrasound images are captured and archived. The right kidney measures 11.3 x 5.1 x 6.0 cm; the left kidney measures 11.0 x 5.2 x 5.0 cm. There is no hydronephrosis or abnormal perinephric fluid. The renal parenchyma is slightly hyperechoic to the hepatic parenchyma compatible with some infiltrating and/or fibrosing medical renal parenchymal disease. There is a 20 x 15 x 16 mm simple cyst in the upper pole of left kidney. There is some nonspecific tiny hyperechoic foci within either renal sinus which could represent vascular calcification rather than nonobstructing nephrolithiasis. Impression: Medical renal parenchymal disease Benign simple cyst left kidney No hydronephrosis PROCEDURE INTERPRETED AT [facility] DEPARTMENT OF RADIOLOGY Final Report Signed by: Dr. Nadja Muse
[2016-09-07] MEDS: FUROSEMIDE 40 MG/4 ML VIAL IV SCH (17:17)
[2016-09-07] MEDS: cefTRIAXone 1,000 MG in SODIUM CHLORIDE 0.9% 100 ML IV SCH (17:23)
[2016-09-07] MEDS: AZITHROMYCIN INJ 500 MG in SODIUM CHLORIDE 0.9% 250 ML IV SCH (17:53)
[2016-09-07] MEDS ORDERED: INSULIN GLARGINE 100 UNIT/ML SUBCUT SCH (21:00)
[2016-09-07] MEDS: hydrALAZINE 25 MG TABLET PO SCH (22:29)
[2016-09-07] MEDS: APIXABAN 2.5 MG TABLET PO SCH (22:29)
[2016-09-07] MEDS: ATORVASTATIN 80 MG TABLET PO SCH (22:29)
[2016-09-07] MEDS: amLODIPine 10 MG TABLET PO SCH (22:29)
[2016-09-08 06:25] LABS: Basophils % 0.2 % (0.0-0.8); Eosinophils # 0.4 10*3/uL (0.0-0.87); Eosinophils % 3.9 % (0.00-10.9); Immature Granulocytes % 0.7 %; Immature Granulocytes Absolute 0.08 #; Lymphocytes # 1.4 10*3/uL (1.4-4.0); Lymphocytes % 13.2 % (21.2-54.2); Mean Corpuscular HGB Conc 35.1 GM/DL (32-36); Mean Corpuscular Hemoglobin 31 PG (27-34); Mean Corpuscular Volume 87.1 FL (87-102); Mean Platelet Volume 10.8 FL (9.6-12.0); Monocytes # 0.6 10*3/uL (0.11-0.8); Monocytes % 5.1 % (1.7-12.7); Neutrophils # 8.2 10*3/uL (1.4-7.4); Neutrophils % 76.9 % (38.7-73.9); Platelet Count 114 T/CUMM (130-400); Red Blood Count 4.25 MC/CUMM (3.8-5.5); Red Cell Distribution Width 13.1 % (9.3-17.3); White Blood Count 10.7 T/CUMM (4-12)
[2016-09-08 07:32] LABS: Calcium 8.9 MG/DL (8.5-10.1); Osmolality,Calculated 298.1 MOS/KG (273-304); Potassium 3.4 MMOL/L (3.5-5.1)
--- NOTE | 2016-09-08 08:26 | Physician Query Form ---
CLICK EDIT DOCUMENT TO SELECT QUERY ANSWER --> OK --> SIGN Rhoda Robert RN, CCDS Certified Clinical Superintendent Recreation W) [phone] (f) [phone] [email or web address]: Make your selection(s) from the choices in EACH section by typing an "x" and enter comments in the comment section. Please use your independent medical judgment in providing your response. This request does not imply that any particular answer is desired or expected. CLINICAL INDICATORS: (Providers should not edit this section) Patient was admitted with Dizziness, acute on chronic renal failure, creatinine of 2.40 down to 1.80, GFR 25# that has increased to 36# and the patient was bolused with NS. Clarify which of the following most accurately represents the patient's renal status: Chronic Kidney Disease Stages Source: National Kidney Disease Foundation ( ) Stage I (eGFR > or = 90) ( ) Stage II (eGFR 60 - 89) (x ) Stage III (eGFR 30 - 59) ( ) Stage IV (eGFR 15 - 29) ( ) Stage V (eGFR < 15 or dialysis) COMMENTS: PLEASE ALSO DOCUMENT RESPONSE IN PROGRESS NOTES AND/OR DISCHARGE SUMMARY Use of terms such as suspected, likely, or probable (associated with a specific diagnosis that is being evaluated, monitored, or treated as if it exists) are acceptable and can be restated in the discharge summary if not ruled out. MTDD
[2016-09-08] MEDS ORDERED: POTASSIUM CHLORIDE 20 MEQ TABLET PO ONE (09:30)
[2016-09-08] MEDS: FUROSEMIDE 40 MG/4 ML VIAL IV SCH (09:42)
[2016-09-08] MEDS: INSULIN LISPRO 100 UNIT/ML SUBCUT SCH ×4 (09:43→21:32)
[2016-09-08] MEDS: PANTOPRAZOLE 40 MG TABLET PO SCH (09:44)
[2016-09-08] MEDS: ASPIRIN EC 81 MG TABLET PO SCH (09:44)
[2016-09-08] MEDS: hydrALAZINE 25 MG TABLET PO SCH ×3 (09:44→21:32)
[2016-09-08] MEDS: APIXABAN 2.5 MG TABLET PO SCH ×2 (09:44→21:32)
[2016-09-08] MEDS: NIACIN 500 MG TABLET PO SCH (09:47)
--- NOTE | 2016-09-08 12:48 | Neurology Consult Note ---
History of Present Illness History of present illness: Mr. Frazier is a 86 year old right-handed white gentleman with past medical history significant coronary artery disease, hypertension, diabetes mellitus, hyperlipidemia who presents to the [facility] ED with an episode of passing out which occurred on Sunday. The patient reports that around 1530 on Sunday he felt a "pop on top of his head" and experienced an apparent syncopal episode. He fell on the ground for a few seconds but could not get up. He crawled to the bed and somehow get onto the bed. Afterwards he just could not get out of the bed for a whole night but the next day he was able to get out of the bed and he called his nephew who brought him to the hospital. He also notes that he was confused stating that he dreamed of his sister who has been for quite some time now. He also states that he cannot find his phone and was unable to contact anyone prior to next day morning as he does live alone. He states that he has had approximately 2 weeks of dizziness and the top of his head. This is new for him as he states that he typically gets dizzy when he turns his head to the right. He has a history of coronary artery disease and has had CABG as well as a carotid endarterectomy performed. He states that he is relatively active and exercises daily walking 2-3 miles per day. MRI of the brain is unremarkable. Carotid ultrasound reveals no significant stenosis. EKG revealed atrial flutter with some bradycardia. Echocardiogram revealed severe pulmonary hypertension as well as ejection fraction of 55%. Home Medications Medication Instructions Recorded Confirmed Type Furosemide [Furosemide] 40 mg PO DAILY 11/23/14 09/06/16 History Metoprolol Succinate 25 mg PO BID 11/23/14 09/06/16 History NIFEdipine [Nifedipine ER] 30 mg PO DAILY 11/23/14 09/06/16 History Simvastatin 80 mg PO AC SUPPER 11/23/14 09/06/16 History cloNIDine HCl [Clonidine HCl] 0.2 mg PO BID 11/23/14 09/06/16 History glyBURIDE MICRONIZED [Glynase] 6 mg PO BID W/MEALS 11/23/14 09/06/16 History metOLazone [Metolazone] 2.5 mg PO QOTHER DAY 11/23/14 09/06/16 History Aspirin EC Tab 325 mg PO DAILY 09/06/16 09/06/16 History Glimepiride [Glimepiride] 4 mg PO BID 09/06/16 09/06/16 History Loratadine Tab [Claritin Tab] 10 mg PO DAILY PRN 09/06/16 09/06/16 History Niacin (Inositol Niacinate) 500 mg PO DAILY 09/06/16 09/06/16 History [Niacin 500 mg Capsule] Allergies Allergy/AdvReac Type Severity Reaction Status Date / Time Sulfa (Sulfonamide Allergy Unknown/Unable Verified 11/23/14 16:00 Antibiotics) to obtain 12 point system: reviewed and no additional remarkable complaints except as stated Medical,Surgical,& Family Hx - Medical History Cardio: History of: [place], Pacemaker Endocrine: History of: Diabetes Mellitus (NIDDM) - Surgical History Cardiac Surgeries: Sugical HX of: Cardiac Surgery, Carotid Endarterectomy Thoracic Surgeries: Patient denies;: Organ Transplant HEENT Surgeries: Surgical HX of: Carotid Endarterectomy - Family History Family History: Reports;: Family Diabetes, Family Heart Disease, Family Hypertension - Social History Smoking Status: Never smoker Frequency of Alcohol Use: None Type of Drug Use: None Exam - Constitutional Vitals: Period Temp Pulse Resp BP Sys/Hurtado Pulse Ox Last 24 Hr 97 F-98.7 F 75-76 16-20 108-143/45-69 95-100 Exam: GENERAL: Patient is in no acute distress. NECK: Neck is supple. There is no JVD. No carotid bruits present. No thyroid masses. CVS: First and second heart sounds are normal. There is no S3 present. Regular rate and rhythm. RESPIRATORY: Lungs are clear to auscultation without any rales or rhonchi. ABDOMEN: Soft and non-tender. Bowel sounds are present. There is no hepatosplenomegaly. EXT: There is no palpable edema. Peripheral pulses are present. Skin: No rashes Central Nervous system: General: Alert, awake and Oriented x 3 Speech: Fluent Comprehension: Intact and normal Facial expressions: Normal Cranial Nerves: CN1/Olfactory: Normal CN II/ Optic: Normal, Visual Patel unreliable CN III, and : FATOUMATA & EOMI CN V: Normal & intact CN VII: face is symmetric CNVIII: Normal CN XI/X/XI/XII: Intact and Normal Motor: Bulk and Tone is normal. Strength in the right 5/5 Strength in the left 5/5 Sensory: Grossly intact for all the modalities of PP, LT and temp sense Reflexes: 1+ and symmetrical Cerebellar function: Normal finger to nose and heel to unger testing. Toes: Equivocal Gait: Normal heel to heel and toe to toe and tandem walk. Results - Labs CBC & BMP: 09/08/16 06:05 09/08/16 06:05 Assessment and Plan (1) Syncope Status: Acute Assessment and plan: This is sounded like cardiac versus metabolic in origin. No evidence of stroke , TIAs, epilepsy or seizures. Continue Eliquis Agree with current management Home when okay with PCP and cardiology Thank you for the consult Current Visit: Yes
--- NOTE | 2016-09-08 13:18 | Hospitalist Progress Note ---
Assessment and Plan (1) Syncope Status: Acute Assessment and plan: Dr. Gibbs and Dr. Ford both seen patient. Dr. Gibbs feels that he did not have a TIA or stroke. He feels that his syncope was cardiac related. Current Visit: Yes (2) TIA (transient ischemic attack) Status: Acute Assessment and plan: Dr. Gibbs has seen patient and does not feel he had a TIA or stroke. We thank him for his input Current Visit: Yes (3) Atrial flutter by electrocardiogram Status: Acute Assessment and plan: Patient remains in atrial flutter on monitor. Continue Eliquis, heart rate has improved after discontinuing clonidine Current Visit: Yes (4) Acute on chronic renal failure Status: Acute Assessment and plan: us renal shows medical renal disease, BUN and creatinine have improved with diuresis. Current Visit: Yes (5) Bradycardia Status: Acute Assessment and plan: Has resolved after stopping clonidine Current Visit: Yes (6) Leukocytosis Status: Acute Assessment and plan: White count responding to Rocephin and azithromycin. Uncertain etiology of infection. UA is negative. Blood cultures are negative. Current Visit: Yes (7) Diabetes mellitus Status: Chronic Assessment and plan: Blood sugars remain elevated but patient refuses to take insulin. I warned him with his kidney problems that Amaryl would be unreliable but he insists on taking oral medicines. Current Visit: Yes (8) Hypertension Status: Acute Assessment and plan: Blood pressure reasonably controlled on Norvasc and hydralazine. Want to avoid overcontrolling due to severe aortic stenosis Current Visit: Yes (9) Pulmonary hypertension Status: Acute Assessment and plan: Confirmed by echocardiogram. Current Visit: Yes (10) Severe aortic stenosis Status: Acute Assessment and plan: Do not want to over controlled blood pressure due to severe aortic stenosis. Dr. Ford would like to do a heart cath. Current Visit: Yes Hospitalist: Subjective Interval history: Patient's heart rate is much better after stopping the clonidine. Patient's blood pressure is tolerating the Norvasc and hydralazine well. No severe rebound hypertension noted yet. Patient's creatinine has improved with diuresis. Neurology has seen him and we appreciate his input. He believes that patient did not have a TIA more of a cardiac event. Dr. Ford would like to proceed with heart cath when his infection is improved. Exam - Constitutional Vitals: Period Temp Pulse Resp BP Sys/Hurtado Pulse Ox Last 24 Hr 97 F-98.7 F 75-76 16-20 108-143/45-69 95-100 Exam: Heart Rate-[RRR sounds regular Lungs-[CTAB] GI-[+bs soft, NT] Ext-[no edema] Neuro [Motor 5/5], [alert and oriented times 3] psych [normal mood and affect] General [no acute distress] Results - Labs CBC & BMP: 09/08/16 06:05 09/08/16 06:05 Lab Results: I have reviewed the past 24 hour labs Labs: Blood cultures 2 negative no growth. - Diagnostic Findings Procedure: MRI: report reviewed by me (No evidence of stroke.), Ultrasound: report reviewed by me (Echocardiogram showed a normal EF with grade 3 diastolic dysfunction, severe pulmonary hypertension and severe aortic stenosis. Ultrasound of renal shows medical renal disease) Quality Measures - Stroke Onset of Symptoms Date: 09/05/16 Onset of Symptoms Time: 15:30 Symptom Onset Unknown: No
[2016-09-08] MEDS: GLIMEPIRIDE 4 MG TABLET PO SCH ×2 (14:22→16:26)
--- NOTE | 2016-09-08 17:10 | Cardiology Progress Note ---
Assessment and Plan - Time spent with patient Time spent with patient: Less than 30 minutes (1) Syncope Status: Acute Assessment and plan: SEE PLAN OF CARE LISTED BELOW Current Visit: Yes (2) Atrial flutter by electrocardiogram Status: Acute Assessment and plan: SEE PLAN OF CARE LISTED BELOW Current Visit: Yes (3) Bradycardia Status: Acute Assessment and plan: SEE PLAN OF CARE LISTED BELOW Current Visit: Yes (4) Coronary artery disease Status: Chronic Assessment and plan: SEE PLAN OF CARE LISTED BELOW Current Visit: Yes (5) Hypertension Status: Chronic Assessment and plan: SEE PLAN OF CARE LISTED BELOW Current Visit: Yes (6) Hyperlipidemia Status: Chronic Assessment and plan: SEE PLAN OF CARE LISTED BELOW Current Visit: Yes (7) Diabetes mellitus Status: Chronic Assessment and plan: SEE PLAN OF CARE LISTED BELOW Current Visit: Yes (8) Chronic kidney disease Status: Chronic Assessment and plan: SEE PLAN OF CARE LISTED BELOW Current Visit: Yes (9) Leukocytosis Status: Resolved Assessment and plan: SEE PLAN OF CARE LISTED BELOW Current Visit: Yes (10) Severe aortic stenosis Status: Acute Assessment and plan: SEE PLAN OF CARE LISTED BELOW. Current Visit: Yes Cardiology - PN: Subj Interval history: CLINICAL APPEALS REVIEWER: DR. ALEXANDER Mr. Frazier is a 86 year old male with a history of coronary artery disease, hypertension, hyperlipidemia, type 2 diabetes mellitus, chronic kidney disease. He is status post coronary artery bypass grafting August 06 2001 with SINGH to the LAD and vein graft to the circumflex marginal and right coronary arteries. He is status post right carotid endarterectomy July 03, 2002. He was admitted to the hospital after an episode of syncope and prolonged weakness. He was initially in atrial flutter, bradycardia, junctional rhythm, no atrial flutter, with normal conduction. He was on no zackery blocking agents. An echocardiogram was performed with showed severe aortic stenosis with preserved ejection fraction. He had some trivial troponin elevation in the setting of an elevated creatinine. Urine toxicology was negative. 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 He has done well today. He denies any further complaints. He understands the need for improvement of his kidney function prior to further evaluation of his kidney function. ASSESSMENT/PLAN: 1. SYNCOPE - Carotid doppler ultrasound reveals right ICA with 50-69% stenosis. CT of the brain was negative. This could have been related to bradycardia or his aortic stenosis. Neurology has seen him in consultation and does not feel he has suffered a TIA at this time. 2. ATRIAL FLUTTER - He is currently being anticoagulated with weight based Lovenox. Treatment is limited due to his bradycardia. Certainly if his bradycardia persisits, he may be a candidate for dual chamber pacemaker implantation. CHADSVASC 5, continue anticoagulation with Eliquis. 3. BRADYCARDIA - Will continue to hold zackery blocking agents. His clonidine was discontinued and bradycardia has improved somewhat. He has had rates in the 70s this afternoon. Keep on telemetry. 4. CORONARY ARTERY DISEASE - He is status post coronary artery bypass grafting August 06 2001 with SINGH to the LAD and vein graft to the circumflex marginal and right coronary arteries. Denies recent chest pain, heaviness, or tightness. Denies recent dyspnea or dyspnea on exertion. Preserved EF. We will start him on ASA 81mg PO Daily. 5. HYPERTENSION - Currently well controlled. Will continue to monitor and adjust accordingly. 6. HYPERLIPIDEMIA - Continue lipid lowering agent. FLP in AM. Triglycerides 98, cholesterol 127, LDL 60, HDL 54. 7. DIABETES - [facility] is following. He is on accuchecks with sliding scale insulin. 8. CHRONIC KIDNEY DISEASE - Monitor BMP. Will try to avoid nephrotoxic agents. 9. LEUKOCYTOSIS - He has been started on empiric antibiotics. Blood cultures are pending. He has been afebrile. 10. AORTIC STENOSIS - Severe per echocardiogram. This will need to be evaluated with cardiac catheterization. He initially had an elevated WBC, now normal. Creatinine was 2.4 on admission. This is slowly improving. Dr. Ford to follow with further plan and addendum. Exam (Progress Note) - Constitutional Vitals: Period Temp Pulse Resp BP Sys/Hurtado Pulse Ox Last 24 Hr 97.8 F-98.7 F 75-77 16-20 108-142/45-73 95-100 Exam: General appearance: Pleasant and cooperative. Normal weight, no acute distress. - Head Head exam: Present: normal inspection, normocephalic, atraumatic. Absent: hematoma, laceration - Eye Eye exam: Present: EOMI. Absent: conjunctival injection, nystagmus, periorbital swelling, scleral icterus, laceration to eyelids Pupils: Present: PERRL. Absent: constricted, dilated, fixed, irregular, unequal - ENT ENT exam: Present: normal exam, normal external ear exam - Neck Neck exam: Present: normal inspection. Absent: lymphadenopathy, meningismus, tenderness, thyromegaly - Respiratory Respiratory exam: Present: clear to auscultation bilaterally. Absent: accessory muscle use, chest wall tenderness - Cardiovascular Cardiovascular exam: Present: regular rate and rhythm, bradycardia, right carotid bruit, systolic murmur. Absent: gallop, JVD, rubs - GI/Abdominal GI/Abdominal exam: Present: normal bowel sounds, soft. Absent: distended, firm , guarding, hernia, mass, tenderness, rebound. - Extremities Exam Extremities exam: Present: normal inspection, normal capillary refill. Upper extremity pulses 2+. Lower extremity pulses 2+. Absent: calf tenderness, edema -Musculoskeletal Exam Musculoskeletal: Present: No Fluid Collection, No Pain, Normal Range of Motion - Back Exam Back exam: Present: normal inspection. Absent: muscle spasm, vertebral tenderness - Neurological Exam Neurological exam: Present: alert, oriented X3, grossly intact without resting or essential tremor - Psychiatric Psychiatric exam: Present: normal affect, normal mood - Skin Skin exam: Present: normal color, warm, dry, intact. Absent: cyanosis, diaphoretic, rash, urticaria Result/EKG - Labs CBC & BMP: 09/08/16 06:05 09/08/16 06:05 Lab Results: I have reviewed the past 24 hour labs Labs: Laboratory Results - last 24 hr 09/07/16 09/07/16 09/08/16 17:04 21:11 06:05 WBC 10.7 RBC 4.25 Hgb 13.0 L Hct 37.0 L MCV 87.1 MCH 31 MCHC 35.1 RDW 13.1 Plt Count 114 L MPV 10.8 Neut % (Auto) 76.9 H Lymph % (Auto) 13.2 L Leslie % (Auto) 5.1 Eos % (Auto) 3.9 Baso % (Auto) 0.2 Neut # (Auto) 8.2 H Lymph # (Auto) 1.4 Leslie # (Auto) 0.6 Eos # (Auto) 0.4 Baso # (Auto) 0.0 Immature Gran % 0.7 Nucleated RBC % 0.0 Immature Gran # 0.08 Nucleated RBCs # 0.00 Sodium Potassium Chloride Carbon Dioxide Anion Gap BUN Creatinine GFR Calculation BUN/Creatinine Ratio Glucose POC Glucose 185 H 204 H Calculated Osmolality Calcium Magnesium 09/08/16 09/08/16 09/08/16 06:05 07:22 11:29 WBC RBC Hgb Hct MCV MCH MCHC RDW Plt Count MPV Neut % (Auto) Lymph % (Auto) Leslie % (Auto) Eos % (Auto) Baso % (Auto) Neut # (Auto) Lymph # (Auto) Leslie # (Auto) Eos # (Auto) Baso # (Auto) Immature Gran % Nucleated RBC % Immature Gran # Nucleated RBCs # Sodium 142 Potassium 3.4 L Chloride 104 Carbon Dioxide 26 Anion Gap 15.4 H BUN 45 H D Creatinine 1.80 H GFR Calculation 36 BUN/Creatinine Ratio 25.00 H Glucose 170 H POC Glucose 197 H 330 H Calculated Osmolality 298.1 Calcium 8.9 Magnesium 2.0 - EKG EKG results: interpreted by me (atrial flutter) Quality Measures - Stroke Onset of Symptoms Date: 09/05/16 Onset of Symptoms Time: 15:30 Symptom Onset Unknown: No
[2016-09-08] MEDS: cefTRIAXone 1,000 MG in SODIUM CHLORIDE 0.9% 100 ML IV SCH (17:26)
[2016-09-08] MEDS: AZITHROMYCIN INJ 500 MG in SODIUM CHLORIDE 0.9% 250 ML IV SCH (17:55)
[2016-09-08] MEDS: ATORVASTATIN 80 MG TABLET PO SCH (21:32)
[2016-09-08] MEDS: amLODIPine 10 MG TABLET PO SCH (21:32)
[2016-09-09 05:55] LABS: Basophils % 0.4 % (0.0-0.8); Eosinophils # 0.3 10*3/uL (0.0-0.87); Eosinophils % 3.2 % (0.00-10.9); Hematocrit 39.7 VOL% (42.0-52.0); Hemoglobin 13.8 GM/DL (14.0-18.0); Immature Granulocytes % 0.9 %; Immature Granulocytes Absolute 0.08 #; Lymphocytes # 1.1 10*3/uL (1.4-4.0); Lymphocytes % 12.8 % (21.2-54.2); Mean Corpuscular HGB Conc 34.8 GM/DL (32-36); Mean Corpuscular Hemoglobin 30 PG (27-34); Mean Corpuscular Volume 87.3 FL (87-102); Mean Platelet Volume 10.5 FL (9.6-12.0); Monocytes # 0.7 10*3/uL (0.11-0.8); Monocytes % 8.7 % (1.7-12.7); Neutrophils # 6.3 10*3/uL (1.4-7.4); Platelet Count 136 T/CUMM (130-400); Red Blood Count 4.55 MC/CUMM (3.8-5.5); Red Cell Distribution Width 13.1 % (9.3-17.3); White Blood Count 8.5 T/CUMM (4-12)
[2016-09-09 06:18] LABS: Calcium 9.2 MG/DL (8.5-10.1); Magnesium 2.2 MG/DL (1.8-2.4); Osmolality,Calculated 297.1 MOS/KG (273-304); Potassium 3.5 MMOL/L (3.5-5.1)
[2016-09-09] MEDS ORDERED: FUROSEMIDE 40 MG/4 ML VIAL IV SCH (09:00)
[2016-09-09] MEDS: POTASSIUM CHLORIDE 20 MEQ TABLET PO SCH (09:06)
[2016-09-09] MEDS: INSULIN LISPRO 100 UNIT/ML SUBCUT SCH ×4 (09:06→22:20)
[2016-09-09] MEDS: hydrALAZINE 25 MG TABLET PO SCH ×3 (09:07→22:19)
[2016-09-09] MEDS: GLIMEPIRIDE 4 MG TABLET PO SCH ×2 (09:07→17:00)
[2016-09-09] MEDS: APIXABAN 2.5 MG TABLET PO SCH ×2 (09:07→22:19)
[2016-09-09] MEDS: NIACIN 500 MG TABLET PO SCH (09:07)
[2016-09-09] MEDS: PANTOPRAZOLE 40 MG TABLET PO SCH (09:07)
[2016-09-09] MEDS: ASPIRIN EC 81 MG TABLET PO SCH (09:09)
[2016-09-09] MEDS ORDERED: BISACODYL 5 MG TABLET PO ONE (10:12)
[2016-09-09] MEDS ORDERED: MAGNESIUM HYDROXIDE SUSP 30 ML UDCUP PO PRN (10:13)
--- NOTE | 2016-09-09 11:32 | Hospitalist Progress Note ---
Assessment and Plan (1) Syncope Status: Acute Assessment and plan: Dr. Ford feels that his syncope is due to his severe aortic stenosis. They plan a cardiac cath on Sunday. Patient will most likely need aortic valve replacement. Current Visit: Yes (2) TIA (transient ischemic attack) Status: Acute Assessment and plan: Dr. Gibbs does not believe patient had a TIA or stroke. MRI of brain looks good. Current Visit: Yes (3) Atrial flutter by electrocardiogram Status: Acute Assessment and plan: Patient remains in atrial flutter on monitor. Continue Eliquis Current Visit: Yes (4) Acute on chronic renal failure Status: Acute Assessment and plan: BUN and creatinine have continued to improve with diuresis. Current Visit: Yes (5) Bradycardia Status: Acute Assessment and plan: Has resolved after stopping clonidine Current Visit: Yes (6) Leukocytosis Status: Resolved Assessment and plan: White count responding to Rocephin and azithromycin. Uncertain etiology of infection. UA is negative. Blood cultures are negative. Repeat chest x-ray today Current Visit: Yes (7) Diabetes mellitus Status: Chronic Assessment and plan: Blood sugars remain elevated but patient refuses to take insulin. Continue Amaryl but we will have to use insulin to control his blood sugars especially if he needs an aortic valve replacement. Current Visit: Yes (8) Hypertension Status: Acute Assessment and plan: Blood pressure not controlled on Norvasc and hydralazine. Will increase hydralazine to 50 mg p.o. 3 times daily Current Visit: Yes (9) Pulmonary hypertension Status: Acute Assessment and plan: Confirmed by echocardiogram. Current Visit: Yes (10) Severe aortic stenosis Status: Acute Assessment and plan: Dr. Ford would like to do a heart cath on Sunday Current Visit: Yes Hospitalist: Subjective Interval history: I told patient he will need to stay until he has his cardiac cath and possibly will need a valve replacement. Started having nosebleeds lasting about 4 AM. He said it stopped on its own but then restarted this morning. Spoke with Dr. Sandy and he will use some nasal foam to try to control his nosebleed. We would like to avoid packing his nose if possible. Patient has not had a bowel movement since admission. Exam - Constitutional Vitals: Period Temp Pulse Resp BP Sys/Hurtado Pulse Ox Last 24 Hr 98.1 F-100.0 F 76-91 16-20 131-172/63-77 98-100 Exam: Heart Rate-[RRR Lungs-[CTAB] GI-[+bs soft, NT] Ext-[no edema] Neuro [Motor 5/5], [alert and oriented times 3] psych [normal mood and affect] General [no acute distress] Results - Labs CBC & BMP: 09/09/16 05:28 09/09/16 05:28 Lab Results: I have reviewed the past 24 hour labs Labs: Blood cultures 2 are negative Quality Measures - Stroke Onset of Symptoms Date: 09/05/16 Onset of Symptoms Time: 15:30 Symptom Onset Unknown: No
--- NOTE | 2016-09-09 12:13 | Consultation ---
Assessment and Plan - Time spent with patient Time spent with patient: Less than 30 minutes (1) Epistaxis Status: Acute Assessment and plan: Treated with bilateral sinus foam nasal packing tolerated well. Current epistaxis is well controlled. I recommend we continue to watch if he has additional epistaxis please let me know as I can perform a more aggressive packing at that time but I prefer not to use it may make his epistaxis worse in the short-term considering his coagulopathy. I will follow this patient intermittently in the me know if there is a worsening situation. Thank you very much for this consult Current Visit: Yes (2) Coagulopathy Status: Acute Current Visit: Yes History of Present Illness - Data of Consult Patient: new to practice Consult date: 09/09/16 - Consult Narrative Reason for consult: Epistaxis History of present illness: Mr. Frazier is a 86 year old male with a required coagulopathy secondary to underlying medical comorbidities and has secondary epistaxis ENT is consulted to help olya this and prevent it from worsening as he will not be able to come off of his anticoagulation. CC: Federica Moreau MD - Home Medications and Allergies Home Medications: Home Medications Medication Instructions Recorded Confirmed Type Furosemide [Furosemide] 40 mg PO DAILY 11/23/14 09/06/16 History Metoprolol Succinate 25 mg PO BID 11/23/14 09/06/16 History NIFEdipine [Nifedipine ER] 30 mg PO DAILY 11/23/14 09/06/16 History Simvastatin 80 mg PO AC SUPPER 11/23/14 09/06/16 History cloNIDine HCl [Clonidine HCl] 0.2 mg PO BID 11/23/14 09/06/16 History glyBURIDE MICRONIZED [Glynase] 6 mg PO BID W/MEALS 11/23/14 09/06/16 History metOLazone [Metolazone] 2.5 mg PO QOTHER DAY 11/23/14 09/06/16 History Aspirin EC Tab 325 mg PO DAILY 09/06/16 09/06/16 History Glimepiride [Glimepiride] 4 mg PO BID 09/06/16 09/06/16 History Loratadine Tab [Claritin Tab] 10 mg PO DAILY PRN 09/06/16 09/06/16 History Niacin (Inositol Niacinate) 500 mg PO DAILY 09/06/16 09/06/16 History [Niacin 500 mg Capsule] Allergies/Adverse Reactions: Allergies Allergy/AdvReac Type Severity Reaction Status Date / Time Sulfa (Sulfonamide Allergy Unknown/Unable Verified 11/23/14 16:00 Antibiotics) to obtain 12 point system: reviewed and no additional remarkable complaints except as stated Medical,Surgical,& Family Hx - Medical History Cardio: History of: VA, Pacemaker Endocrine: History of: Diabetes Mellitus (NIDDM) - Surgical History Cardiac Surgeries: Sugical HX of: Cardiac Surgery, Carotid Endarterectomy Thoracic Surgeries: Patient denies;: Organ Transplant HEENT Surgeries: Surgical HX of: Carotid Endarterectomy - Family History Family History: Reports;: Family Diabetes, Family Heart Disease, Family Hypertension - Social History Smoking Status: Never smoker Frequency of Alcohol Use: None Type of Drug Use: None Exam - Constitutional Vitals: Period Temp Pulse Resp BP Sys/Hurtado Pulse Ox Last 24 Hr 98.1 F-100.0 F 77-91 16-20 131-172/67-77 98-100 General appearance: normal weight, no acute distress - Head Head exam: Present: normal inspection, normocephalic - Eye Eye exam: Present: EOMI Pupils: Present: FATOUMATA - ENT ENT exam: Present: normal exam, normal external ear exam, normal oropharynx, other (Anterior rhinoscopy reveals a dry friable nasal mucosa that I packed at bedside with bilateral sinus foam packing tolerated well) - Neck Neck exam: Present: normal inspection - Respiratory Respiratory exam: Present: other (No shortness breath or difficulty breathing) - GI/Abdominal GI/Abdominal exam: Present: soft (No gross organomegaly) - Extremities Exam Extremities exam: Present: normal inspection (Overall poor peripheral vascular blood flow) - Neurological Exam Neurological exam: Present: alert, oriented X3, CN II-XII intact - Psychiatric Psychiatric exam: Present: normal affect, normal mood - Skin Skin exam: Present: normal color, warm Results - Labs CBC & BMP: 09/09/16 05:28 09/09/16 05:28 Lab Results: I have reviewed the past 24 hour labs Quality Measures - Stroke Onset of Symptoms Date: 09/05/16 Onset of Symptoms Time: 15:30 Symptom Onset Unknown: No
[2016-09-09] MEDS: INSULIN GLARGINE 100 UNIT/ML SUBCUT SCH (12:57)
--- NOTE | 2016-09-09 13:42 | Cardiology Progress Note ---
Assessment and Plan (1) Severe aortic stenosis Status: Acute Assessment and plan: 86-year-old male, admitted after an episode of syncope, prolonged weakness. He was initially in typical atrial flutter, bradycardia, junctional rhythm, no atrial flutter, with normal conduction. He is not on a zackery agent. Echo showed severe aortic stenosis, preserved ejection fraction. -Syncope. This could have been related to bradycardia or his aortic stenosis. -The will need to be evaluated. He is being treated for pneumonia, improving. Acute kidney injury improving. -He is not symptomatic from CHF at this time. Stop the Lasix and monitor his I' s and O's closely -HR more elevated today, wQRS beats/runs susp for NSVT or AFL/aberrancy. Start metoprolol 25 mg bid -Nosebleed. Was packed by ENT. Continue aspirin, Eliquis for now. If the bleeding recurs and unable to control, we may need to cut back on his antiplatelet/anticoagulant. CHADSVASC 5. -CAD, status post CABG. Ejection fraction preserved. Aspirin 81 mg daily, continue statin. Current Visit: Yes (2) Dizziness Status: Acute Current Visit: Yes (3) Bradycardia Status: Acute Current Visit: Yes (4) TIA (transient ischemic attack) Status: Acute Current Visit: Yes (5) Epistaxis Status: Acute Current Visit: Yes Cardiology - PN: Subj Interval history: Is feeling better. Developedtoday, on aspirin and Eliquis. Heart rate better controlled, had episodes of wide QRS tachycardia, suggestive either of atrial flutter/IVCD or nonsustained VT. Exam (Progress Note) - Constitutional Vitals: Period Temp Pulse Resp BP Sys/Hurtado Pulse Ox Last 24 Hr 98.1 F-100.0 F 77-91 16-20 131-179/67-80 97-100 General appearance: normal weight, no acute distress - Head Head exam: Present: normal inspection, normocephalic - Eye Eye exam: Absent: conjunctival injection Pupils: Absent: dilated - ENT ENT exam: Present: normal external ear exam - Neck Neck exam: Present: normal inspection - Respiratory Respiratory exam: Present: clear to auscultation bilaterally - Cardiovascular Cardiovascular exam: Present: irregular rhythm, systolic murmur - GI/Abdominal GI/Abdominal exam: Present: normal bowel sounds. Absent: distended - Extremities Exam Extremities exam: Present: normal inspection, normal capillary refill. Absent: edema - Back Exam Back exam: Present: normal inspection - Neurological Exam Neurological exam: Present: alert, oriented X3 - Psychiatric Psychiatric exam: Present: normal affect, normal mood - Skin Skin exam: Present: normal color, warm. Absent: cyanosis Result/EKG - Labs CBC & BMP: 09/09/16 05:28 09/09/16 05:28 Lab Results: I have reviewed the past 24 hour labs Labs: Laboratory Results - last 24 hr 09/08/16 09/08/16 09/09/16 16:24 19:57 05:28 WBC 8.5 RBC 4.55 Hgb 13.8 L Hct 39.7 L MCV 87.3 MCH 30 MCHC 34.8 RDW 13.1 Plt Count 136 MPV 10.5 Neut % (Auto) 74.0 H Lymph % (Auto) 12.8 L [place] % (Auto) 8.7 Eos % (Auto) 3.2 Baso % (Auto) 0.4 Neut # (Auto) 6.3 Lymph # (Auto) 1.1 L [place] # (Auto) 0.7 Eos # (Auto) 0.3 Baso # (Auto) 0.0 Immature Gran % 0.9 Nucleated RBC % 0.0 Immature Gran # 0.08 Nucleated RBCs # 0.00 Sodium Potassium Chloride Carbon Dioxide Anion Gap BUN Creatinine GFR Calculation BUN/Creatinine Ratio Glucose POC Glucose 228 H 299 H Calculated Osmolality Calcium Magnesium 09/09/16 05:28 WBC RBC Hgb Hct MCV MCH MCHC RDW Plt Count MPV Neut % (Auto) Lymph % (Auto) [place] % (Auto) Eos % (Auto) Baso % (Auto) Neut # (Auto) Lymph # (Auto) [place] # (Auto) Eos # (Auto) Baso # (Auto) Immature Gran % Nucleated RBC % Immature Gran # Nucleated RBCs # Sodium 142 Potassium 3.5 Chloride 105 Carbon Dioxide 24 Anion Gap 16.5 H BUN 34 H D Creatinine 1.60 H GFR Calculation 41 BUN/Creatinine Ratio 21.00 H Glucose 223 H POC Glucose Calculated Osmolality 297.1 Calcium 9.2 Magnesium 2.2 - EKG EKG results: interpreted by me Quality Measures - Stroke Onset of Symptoms Date: 09/05/16 Onset of Symptoms Time: 15:30 Symptom Onset Unknown: No
[2016-09-09] MEDS: METOPROLOL TARTRATE 25 MG TABLET PO SCH ×2 (14:37→22:19)
[2016-09-09] MEDS: cefTRIAXone 1,000 MG in SODIUM CHLORIDE 0.9% 100 ML IV SCH (17:03)
[2016-09-09] MEDS: AZITHROMYCIN INJ 500 MG in SODIUM CHLORIDE 0.9% 250 ML IV SCH (17:07)
--- NOTE | 2016-09-09 21:10 | XRay Report ---
History: Pneumonia Date: 09/09/2016 Study: Chest x-ray PA and lateral Comparison exam: September 06, 2016 The cardiac silhouette is not enlarged. There is no mediastinal mass. The patient is status post prior median sternotomy. There is moderate aortic arch calcification. The pulmonary vasculature is not engorged. There is no pleural effusion. There is some platelike scarring in the lower lungs. There are some probable scattered emphysematous changes. There is no gross pneumonia. Osseous structures are similar. Impression: No definite acute process. Chronic lung changes PROCEDURE INTERPRETED AT [facility] DEPARTMENT OF RADIOLOGY Final Report Signed by: Dr. Nadja Muse
[2016-09-09] MEDS: ATORVASTATIN 80 MG TABLET PO SCH (22:19)
[2016-09-09] MEDS: amLODIPine 10 MG TABLET PO SCH (22:20)
[2016-09-10 04:12] LABS: Basophils % 0.4 % (0.0-0.8); Eosinophils # 0.2 10*3/uL (0.0-0.87); Eosinophils % 1.8 % (0.00-10.9); Hematocrit 39.1 VOL% (42.0-52.0); Hemoglobin 13.4 GM/DL (14.0-18.0); Immature Granulocytes % 0.8 %; Immature Granulocytes Absolute 0.09 #; Lymphocytes # 1.4 10*3/uL (1.4-4.0); Lymphocytes % 13.3 % (21.2-54.2); Mean Corpuscular HGB Conc 34.3 GM/DL (32-36); Mean Corpuscular Hemoglobin 30 PG (27-34); Mean Corpuscular Volume 86.7 FL (87-102); Mean Platelet Volume 10.6 FL (9.6-12.0); Monocytes # 0.9 10*3/uL (0.11-0.8); Monocytes % 8.4 % (1.7-12.7); Neutrophils % 75.3 % (38.7-73.9); Platelet Count 157 T/CUMM (130-400); Red Blood Count 4.51 MC/CUMM (3.8-5.5); Red Cell Distribution Width 13.2 % (9.3-17.3); White Blood Count 10.6 T/CUMM (4-12)
[2016-09-10 04:57] LABS: Calcium 9.2 MG/DL (8.5-10.1); Magnesium 2.3 MG/DL (1.8-2.4); Potassium 4.3 MMOL/L (3.5-5.1)
[2016-09-10] MEDS: INSULIN GLARGINE 100 UNIT/ML SUBCUT SCH (09:17)
[2016-09-10] MEDS: INSULIN LISPRO 100 UNIT/ML SUBCUT SCH ×4 (09:17→21:54)
[2016-09-10] MEDS: ASPIRIN EC 81 MG TABLET PO SCH (09:18)
[2016-09-10] MEDS: APIXABAN 2.5 MG TABLET PO SCH ×2 (09:18→21:55)
[2016-09-10] MEDS: hydrALAZINE 25 MG TABLET PO SCH (09:18)
[2016-09-10] MEDS: METOPROLOL TARTRATE 25 MG TABLET PO SCH ×2 (09:18→21:55)
[2016-09-10] MEDS: POTASSIUM CHLORIDE 20 MEQ TABLET PO SCH (09:18)
[2016-09-10] MEDS: NIACIN 500 MG TABLET PO SCH (09:19)
[2016-09-10] MEDS: GLIMEPIRIDE 4 MG TABLET PO SCH ×2 (09:19→17:06)
[2016-09-10] MEDS: PANTOPRAZOLE 40 MG TABLET PO SCH (09:19)
--- NOTE | 2016-09-10 11:40 | Cardiology Progress Note ---
Assessment and Plan (1) Severe aortic stenosis Status: Acute Assessment and plan: 86-year-old male, admitted after an episode of syncope, prolonged weakness. He was initially in typical atrial flutter, bradycardia, junctional rhythm, no atrial flutter, with normal conduction. He is not on a zackery agent. Echo showed severe aortic stenosis, preserved ejection fraction. -Syncope. This could have been related to bradycardia or his aortic stenosis. -The will need to be evaluated. He is being treated for pneumonia, improving. Acute kidney injury improving. -He is not symptomatic from CHF at this time. Stopped the Lasix -Atrial flutter. On admission, he was in atrial flutter/bradycardia, junctional rhythm, since then, it peaked up, had asymptomatic RVR, with more pronounced aberrancy. With his aortic stenosis, he may be quite sensitive for enlarged radiation heart rate, and will need a dual-chamber pacemaker implant. If the is going to be addressed during this stay, we will need to monitor him after the surgery, if this remains an issue -Nosebleed. Was packed by ENT. Continue aspirin, Eliquis for now. If the bleeding recurs and unable to control, we may need to cut back on his antiplatelet/anticoagulant. CHADSVASC 5. Plan to hold anticoagulation for a day , before the heart catheterization -Continue metoprolol 25 mg twice daily. -CAD, status post CABG. Ejection fraction preserved. Aspirin 81 mg daily, continue statin. -We can plan left heart cath for Sunday Current Visit: Yes (2) Dizziness Status: Acute Current Visit: Yes (3) Bradycardia Status: Acute Current Visit: Yes (4) TIA (transient ischemic attack) Status: Acute Current Visit: Yes (5) Epistaxis Status: Acute Current Visit: Yes Cardiology - PN: Subj Interval history: He is feeling fine. No recurrence of nosebleed, since packing. His heart rate was elevated again, despite metoprolol. No recurrence of bradycardia. Still in atrial flutter. Exam (Progress Note) - Constitutional Vitals: Period Temp Pulse Resp BP Sys/Hurtado Pulse Ox Last 24 Hr 98 F-100.7 F 76-81 18-20 147-190/70-84 96-98 General appearance: normal weight, no acute distress - Head Head exam: Present: normal inspection, normocephalic - Eye Eye exam: Absent: conjunctival injection Pupils: Absent: dilated - ENT ENT exam: Present: normal external ear exam - Neck Neck exam: Present: normal inspection - Respiratory Respiratory exam: Present: clear to auscultation bilaterally - Cardiovascular Cardiovascular exam: Present: irregular rhythm, systolic murmur, tachycardia - GI/Abdominal GI/Abdominal exam: Present: normal bowel sounds - Extremities Exam Extremities exam: Present: normal inspection, normal capillary refill. Absent: edema - Back Exam Back exam: Present: normal inspection - Neurological Exam Neurological exam: Present: alert, oriented X3 - Psychiatric Psychiatric exam: Present: normal affect, normal mood - Skin Skin exam: Present: normal color, warm, cyanosis Result/EKG - Labs CBC & BMP: 09/10/16 03:29 09/10/16 03:29 Lab Results: I have reviewed the past 24 hour labs Labs: Laboratory Results - last 24 hr 09/09/16 09/09/16 09/09/16 08:20 12:10 16:15 WBC RBC Hgb Hct MCV MCH MCHC RDW Plt Count MPV Neut % (Auto) Lymph % (Auto) [place] % (Auto) Eos % (Auto) Baso % (Auto) Neut # (Auto) Lymph # (Auto) [place] # (Auto) Eos # (Auto) Baso # (Auto) Immature Gran % Nucleated RBC % Immature Gran # Nucleated RBCs # Sodium Potassium Chloride Carbon Dioxide Anion Gap BUN Creatinine GFR Calculation BUN/Creatinine Ratio Glucose POC Glucose 270 H 228 H 185 H Calculated Osmolality Calcium Magnesium 09/09/16 09/10/16 09/10/16 21:16 03:29 03:29 WBC 10.6 RBC 4.51 Hgb 13.4 L Hct 39.1 L MCV 86.7 L MCH 30 MCHC 34.3 RDW 13.2 Plt Count 157 MPV 10.6 Neut % (Auto) 75.3 H Lymph % (Auto) 13.3 L [place] % (Auto) 8.4 Eos % (Auto) 1.8 Baso % (Auto) 0.4 Neut # (Auto) 8.0 H Lymph # (Auto) 1.4 [place] # (Auto) 0.9 H Eos # (Auto) 0.2 Baso # (Auto) 0.0 Immature Gran % 0.8 Nucleated RBC % 0.0 Immature Gran # 0.09 Nucleated RBCs # 0.00 Sodium 143 Potassium 4.3 Chloride 109 H Carbon Dioxide 26 Anion Gap 12.3 BUN 31 H Creatinine 1.50 H GFR Calculation 44 BUN/Creatinine Ratio 20.00 Glucose 137 H POC Glucose 280 H Calculated Osmolality 293.0 Calcium 9.2 Magnesium 2.3 Quality Measures - Stroke Onset of Symptoms Date: 09/05/16 Onset of Symptoms Time: 15:30 Symptom Onset Unknown: No
--- NOTE | 2016-09-10 13:12 | Hospitalist Progress Note ---
Assessment and Plan (1) Syncope Status: Acute Assessment and plan: Dr. Ford feels that his syncope is due to his severe aortic stenosis. They plan a cardiac cath on Sunday. Patient will most likely need aortic valve replacement. Current Visit: Yes (2) TIA (transient ischemic attack) Status: Acute Assessment and plan: Dr. Gibbs does not believe patient had a TIA or stroke. MRI of brain looks good. Current Visit: Yes (3) Atrial flutter by electrocardiogram Status: Acute Assessment and plan: Patient remains in atrial flutter on monitor. Continue Eliquis Current Visit: Yes (4) Acute on chronic renal failure Status: Acute Assessment and plan: BUN and creatinine have continued to improve with diuresis. Current Visit: Yes (5) Bradycardia Status: Acute Assessment and plan: Has resolved after stopping clonidine Current Visit: Yes (6) Leukocytosis Status: Resolved Assessment and plan: White count responding to Rocephin and azithromycin. Uncertain etiology of infection. UA is negative. Blood cultures are negative. Repeat chest x-ray shows copd Current Visit: Yes (7) Diabetes mellitus Status: Chronic Assessment and plan: Blood sugars with lantus and amaryl Current Visit: Yes (8) Hypertension Status: Acute Assessment and plan: Blood pressure not controlled on Norvasc, increase hydralazine Current Visit: Yes (9) Pulmonary hypertension Status: Acute Assessment and plan: Confirmed by echocardiogram. Current Visit: Yes (10) Severe aortic stenosis Status: Acute Assessment and plan: Dr. Ford would like to do a heart cath on Sunday Current Visit: Yes Hospitalist: Subjective Interval history: Patient is no longer had any problems with nosebleeds. Family was at bedside gave him complete update I am not sure if that is his son or his nephew. Waiting till Sunday for heart cath. Patient will most likely need in a valve replacement Exam - Constitutional Vitals: Period Temp Pulse Resp BP Sys/Hurtado Pulse Ox Last 24 Hr 98 F-100.7 F 76-77 18-20 147-190/70-84 96-100 Exam: Heart Rate-[RRR Lungs-[CTAB] GI-[+bs soft, NT] Ext-[no edema] Neuro [Motor 5/5], [alert and oriented times 3] psych [normal mood and affect] General [no acute distress] Results - Labs CBC & BMP: 09/10/16 03:29 09/10/16 03:29 Lab Results: I have reviewed the past 24 hour labs - Diagnostic Findings Procedure: Chest x-ray: report reviewed by me (COPD) Quality Measures - Stroke Onset of Symptoms Date: 09/05/16 Onset of Symptoms Time: 15:30 Symptom Onset Unknown: No
[2016-09-10] MEDS: cefTRIAXone 1,000 MG in SODIUM CHLORIDE 0.9% 100 ML IV SCH (17:06)
[2016-09-10] MEDS: AZITHROMYCIN INJ 500 MG in SODIUM CHLORIDE 0.9% 250 ML IV SCH (18:07)
[2016-09-10] MEDS: amLODIPine 10 MG TABLET PO SCH (21:55)
[2016-09-10] MEDS: ATORVASTATIN 80 MG TABLET PO SCH (21:55)
[2016-09-11 06:04] LABS: Basophils # 0.1 10*3/uL (0.0-0.2); Basophils % 0.4 % (0.0-0.8); Eosinophils # 0.1 10*3/uL (0.0-0.87); Hematocrit 39.3 VOL% (42.0-52.0); Hemoglobin 13.4 GM/DL (14.0-18.0); Immature Granulocytes % 0.9 %; Lymphocytes # 1.3 10*3/uL (1.4-4.0); Lymphocytes % 11.4 % (21.2-54.2); Mean Corpuscular HGB Conc 34.1 GM/DL (32-36); Mean Corpuscular Hemoglobin 30 PG (27-34); Mean Corpuscular Volume 88.7 FL (87-102); Mean Platelet Volume 10.1 FL (9.6-12.0); Monocytes % 8.1 % (1.7-12.7); Neutrophils # 9.2 10*3/uL (1.4-7.4); Neutrophils % 78.2 % (38.7-73.9); Platelet Count 144 T/CUMM (130-400); Red Blood Count 4.43 MC/CUMM (3.8-5.5); Red Cell Distribution Width 13.2 % (9.3-17.3); White Blood Count 11.7 T/CUMM (4-12)
[2016-09-11 06:37] LABS: Calcium 9.2 MG/DL (8.5-10.1); Magnesium 2.3 MG/DL (1.8-2.4); Osmolality,Calculated 293.1 MOS/KG (273-304)
[2016-09-11] MEDS: INSULIN GLARGINE 100 UNIT/ML SUBCUT SCH (08:49)
[2016-09-11] MEDS: METOPROLOL TARTRATE 25 MG TABLET PO SCH ×2 (08:50→20:14)
[2016-09-11] MEDS: INSULIN LISPRO 100 UNIT/ML SUBCUT SCH ×4 (08:50→20:13)
[2016-09-11] MEDS: POTASSIUM CHLORIDE 20 MEQ TABLET PO SCH (08:50)
[2016-09-11] MEDS: ASPIRIN EC 81 MG TABLET PO SCH (08:50)
[2016-09-11] MEDS: GLIMEPIRIDE 4 MG TABLET PO SCH ×2 (08:50→17:02)
[2016-09-11] MEDS: APIXABAN 2.5 MG TABLET PO SCH ×3 (08:50→20:16)
[2016-09-11] MEDS: NIACIN 500 MG TABLET PO SCH (08:50)
[2016-09-11] MEDS: PANTOPRAZOLE 40 MG TABLET PO SCH (08:50)
--- NOTE | 2016-09-11 10:50 | Cardiology Progress Note ---
<Rosie Hsu E - Last Filed: 09/11/16 10:39> Assessment and Plan - Time spent with patient Time spent discussing smoking cessation with patient: 3 to 10 minutes (1) Severe aortic stenosis Status: Acute Assessment and plan: SEE PLAN OF CARE LISTED BELOW. Current Visit: Yes (2) Syncope Status: Acute Assessment and plan: SEE PLAN OF CARE LISTED BELOW Current Visit: Yes (3) Atrial flutter by electrocardiogram Status: Acute Assessment and plan: SEE PLAN OF CARE LISTED BELOW Current Visit: Yes (4) Bradycardia Status: Acute Assessment and plan: SEE PLAN OF CARE LISTED BELOW Current Visit: Yes (5) Coronary artery disease Status: Chronic Assessment and plan: SEE PLAN OF CARE LISTED BELOW Current Visit: Yes (6) Hypertension Status: Chronic Assessment and plan: SEE PLAN OF CARE LISTED BELOW Current Visit: Yes (7) Hyperlipidemia Status: Chronic Assessment and plan: SEE PLAN OF CARE LISTED BELOW Current Visit: Yes (8) Diabetes mellitus Status: Chronic Assessment and plan: SEE PLAN OF CARE LISTED BELOW Current Visit: Yes (9) Chronic kidney disease Status: Chronic Assessment and plan: SEE PLAN OF CARE LISTED BELOW Current Visit: Yes (10) Leukocytosis Status: Resolved Assessment and plan: SEE PLAN OF CARE LISTED BELOW Current Visit: Yes (11) Epistaxis Status: Acute Assessment and plan: SEE PLAN OF CARE LISTED BELOW Current Visit: Yes Cardiology - PN: Subj Interval history: RENEWAL SPECIALIST: DR. DURAN Mr. Frazier is a 86 year old male with a history of coronary artery disease, hypertension, hyperlipidemia, type 2 diabetes mellitus, chronic kidney disease. He is status post coronary artery bypass grafting August 06 2001 with SINGH to the LAD and vein graft to the circumflex marginal and right coronary arteries. He is status post right carotid endarterectomy July 03, 2002. He was admitted to the hospital after an episode of syncope and prolonged weakness. He was initially in atrial flutter, bradycardia, junctional rhythm, no atrial flutter, with normal conduction. He was on no zackery blocking agents. An echocardiogram was performed with showed severe aortic stenosis with preserved ejection fraction. He had some trivial troponin elevation in the setting of an elevated creatinine. Urine toxicology was negative. 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 He has done well over the weekend. He did have some epistaxis on Sunday which required packing by ENT. He has had no recurrent syncopal events. Per Dr. Ford' s notes from the weekend, we will tentatively plan for left heart catheterization tomorrow. It was noted that his anticoagulation may need to be held for a day prior to [facility]. We will await further recommendations from Dr. Lloyd. ASSESSMENT/PLAN: 1. SEVERE AORTIC STENOSIS - Severe per echocardiogram. This will need to be evaluated with cardiac catheterization. He initially had an elevated WBC, now normal. Creatinine was 2.4 on admission. This is slowly improving. Creatinine 1.7 today. 2. SYNCOPE - Carotid doppler ultrasound reveals right ICA with 50-69% stenosis. CT of the brain was negative. This could have been related to bradycardia or his aortic stenosis. Neurology has seen him in consultation and does not feel he has suffered a TIA at this time. 3. ATRIAL FLUTTER - He is currently being anticoagulated with weight based Lovenox. Initially, treatment was limited with his bradycardia. Certainly if he has recurrent bradycardia, he may be a candidate for dual chamber pacemaker implantation. CHADSVASC 5, continue anticoagulation with Eliquis. He has been started on a beta demarco and has tolerated this well. 4. BRADYCARDIA - Will continue to hold zackery blocking agents. His clonidine was discontinued and bradycardia has improved. His rates have stayed fairly consistent in the 70s-80s. 5. CORONARY ARTERY DISEASE - He is status post coronary artery bypass grafting August 06 2001 with SINGH to the LAD and vein graft to the circumflex marginal and right coronary arteries. Denies recent chest pain, heaviness, or tightness. Denies recent dyspnea or dyspnea on exertion. Preserved EF. Contine ASA, beta demarco, lipid-lowering agent. 6. HYPERTENSION - Currently well controlled. Will continue to monitor and adjust accordingly. 7. HYPERLIPIDEMIA - Continue lipid lowering agent. FLP revealed triglycerides 98 , cholesterol 127, LDL 60, HDL 54. 8. DIABETES - [facility] is following. He is on accuchecks with sliding scale insulin. 9. CHRONIC KIDNEY DISEASE - Monitor BMP. Will try to avoid nephrotoxic agents. 10. LEUKOCYTOSIS - He has been started on empiric antibiotics. Blood cultures are pending. He has been afebrile. He is receiving empiric treatment with IV antibiotics. WBC has been normal the past 3 days. 11. EPISTAXIS - Required packing by ENT on Sunday. He has had no further episodes since. H&H stable. We are currently continuing aspirin and Eliquis. Will discuss with Dr. Lloyd to see if he wishes to hold anticoagulation for a day prior to heart catheterization. Exam (Progress Note) - Constitutional Vitals: Period Temp Pulse Resp BP Sys/Hurtado Pulse Ox Last 24 Hr 97.0 F-100.4 F 74-88 16-20 137-165/59-73 95-100 Exam: General appearance: Pleasant and cooperative. Normal weight, no acute distress. - Head Head exam: Present: normal inspection, normocephalic, atraumatic. Absent: hematoma, laceration - Eye Eye exam: Present: EOMI. Absent: conjunctival injection, nystagmus, periorbital swelling, scleral icterus, laceration to eyelids Pupils: Present: PERRL. Absent: constricted, dilated, fixed, irregular, unequal - ENT ENT exam: Present: normal exam, normal external ear exam - Neck Neck exam: Present: normal inspection. Absent: lymphadenopathy, meningismus, tenderness, thyromegaly - Respiratory Respiratory exam: Present: clear to auscultation bilaterally. Absent: accessory muscle use, chest wall tenderness - Cardiovascular Cardiovascular exam: Present: irregular rate and rhythm, right carotid bruit, systolic murmur. Absent: gallop, JVD, rubs - GI/Abdominal GI/Abdominal exam: Present: normal bowel sounds, soft. Absent: distended, firm , guarding, hernia, mass, tenderness, rebound. - Extremities Exam Extremities exam: Present: normal inspection, normal capillary refill. Upper extremity pulses 2+. Lower extremity pulses 2+. Absent: calf tenderness, edema -Musculoskeletal Exam Musculoskeletal: Present: No Fluid Collection, No Pain, Normal Range of Motion - Back Exam Back exam: Present: normal inspection. Absent: muscle spasm, vertebral tenderness - Neurological Exam Neurological exam: Present: alert, oriented X3, grossly intact without resting or essential tremor - Psychiatric Psychiatric exam: Present: normal affect, normal mood - Skin Skin exam: Present: normal color, warm, dry, intact. Absent: cyanosis, diaphoretic, rash, urticaria Result/EKG - Labs CBC & BMP: 09/11/16 05:38 09/11/16 05:39 Lab Results: I have reviewed the past 24 hour labs Labs: Laboratory Results - last 24 hr 09/10/16 09/10/16 09/10/16 07:19 11:28 15:34 WBC RBC Hgb Hct MCV MCH MCHC RDW Plt Count MPV Neut % (Auto) Lymph % (Auto) [place] % (Auto) Eos % (Auto) Baso % (Auto) Neut # (Auto) Lymph # (Auto) [place] # (Auto) Eos # (Auto) Baso # (Auto) Immature Gran % Nucleated RBC % Immature Gran # Nucleated RBCs # Sodium Potassium Chloride Carbon Dioxide Anion Gap BUN Creatinine GFR Calculation BUN/Creatinine Ratio Glucose POC Glucose 191 H 264 H 210 H Calculated Osmolality Calcium Magnesium 09/10/16 09/11/16 09/11/16 20:09 05:38 05:39 WBC 11.7 RBC 4.43 Hgb 13.4 L Hct 39.3 L MCV 88.7 MCH 30 MCHC 34.1 RDW 13.2 Plt Count 144 MPV 10.1 Neut % (Auto) 78.2 H Lymph % (Auto) 11.4 L [place] % (Auto) 8.1 Eos % (Auto) 1.0 Baso % (Auto) 0.4 Neut # (Auto) 9.2 H Lymph # (Auto) 1.3 L [place] # (Auto) 1.0 H Eos # (Auto) 0.1 Baso # (Auto) 0.1 Immature Gran % 0.9 Nucleated RBC % 0.0 Immature Gran # 0.10 Nucleated RBCs # 0.00 Sodium 142 Potassium 5.0 Chloride 108 H Carbon Dioxide 24 Anion Gap 15.0 BUN 30 H Creatinine 1.70 H GFR Calculation 38 BUN/Creatinine Ratio 17.00 Glucose 196 H POC Glucose 228 H Calculated Osmolality 293.1 Calcium 9.2 Magnesium 2.3 09/11/16 07:42 WBC RBC Hgb Hct MCV MCH MCHC RDW Plt Count MPV Neut % (Auto) Lymph % (Auto) [place] % (Auto) Eos % (Auto) Baso % (Auto) Neut # (Auto) Lymph # (Auto) [place] # (Auto) Eos # (Auto) Baso # (Auto) Immature Gran % Nucleated RBC % Immature Gran # Nucleated RBCs # Sodium Potassium Chloride Carbon Dioxide Anion Gap BUN Creatinine GFR Calculation BUN/Creatinine Ratio Glucose POC Glucose 196 H Calculated Osmolality Calcium Magnesium - EKG EKG results: interpreted by me (atrial flutter) Quality Measures - Stroke Onset of Symptoms Date: 09/05/16 Onset of Symptoms Time: 15:30 Symptom Onset Unknown: No <Mariel Lloyd - Last Filed: 09/11/16 19:36> Assessment and Plan (1) Acute on chronic renal failure Status: Acute Current Visit: Yes (2) Atrial flutter by electrocardiogram Status: Acute Current Visit: Yes (3) Bradycardia Status: Acute Current Visit: Yes (4) Epistaxis Status: Acute Current Visit: Yes (5) Hypertension Status: Acute Current Visit: Yes (6) Pulmonary hypertension Status: Chronic Current Visit: Yes (7) Severe aortic stenosis Status: Chronic Current Visit: Yes (8) TIA (transient ischemic attack) Status: Acute Current Visit: Yes (9) Unsteady gait Status: Chronic Current Visit: Yes (10) Coronary artery disease Status: Chronic Current Visit: Yes (11) Diabetes mellitus Status: Chronic Current Visit: Yes Qualifiers: Diabetes mellitus type: type 2 Cardiology - PN: Subj Interval history: The patient Dr. Osmar duran's who is admitted with syncope. He has severe aortic stenosis with aortic valve area estimated 0.8 cm with peak to peak gradient of 64. He also had atrial flutter and bradycardia most of which could have contributed. He also was found has significant pulmonary hypertension all of these can contribute to and/or calls syncope. He has a history of coronary artery bypass grafting in 2001 with a SINGH to the LAD and the saphenous vein graft to the circumflex and RCA. He also has carotid disease as outlined above. His creatinine was up to 2.4 to his trended down I would like to see it stabilized more before we expose him to contrast especially given the fact that he has vein grafts. He will need to be anticoagulated for his atrial dysrhythmia. He has a high operative risk for aortic valve replacement but would likely benefit from TAVR if all his vein grafts and coronary anatomy is not in need of revascularization surgically. I would like to see his creatinine stabilized. Anticipate cath as soon as safe. Exam (Progress Note) - Constitutional Vitals: Period Temp Pulse Resp BP Sys/Hurtado Pulse Ox Last 24 Hr 96.6 F-100.4 F 72-88 16-20 126-165/59-73 95-98 - Respiratory Respiratory exam: Present: wheezes - Cardiovascular Cardiovascular exam: Present: irregular rhythm, other (Has a 3/6 murmur of aortic stenosis second heart sound is absent. He has delayed carotid upstroke. He also has a carotid bruit) - GI/Abdominal GI/Abdominal exam: Present: normal bowel sounds - Neurological Exam Neurological exam: Present: alert, oriented X3 - Psychiatric Psychiatric exam: Present: normal affect Result/EKG - Labs CBC & BMP: 09/11/16 05:38 09/11/16 05:39 Labs: Laboratory Results - last 24 hr 09/10/16 09/10/16 09/10/16 07:19 11:28 15:34 WBC RBC Hgb Hct MCV MCH MCHC RDW Plt Count MPV Neut % (Auto) Lymph % (Auto) [place] % (Auto) Eos % (Auto) Baso % (Auto) Neut # (Auto) Lymph # (Auto) [place] # (Auto) Eos # (Auto) Baso # (Auto) Immature Gran % Nucleated RBC % Immature Gran # Nucleated RBCs # Sodium Potassium Chloride Carbon Dioxide Anion Gap BUN Creatinine GFR Calculation BUN/Creatinine Ratio Glucose POC Glucose 191 H 264 H 210 H Calculated Osmolality Calcium Magnesium 09/10/16 09/11/16 09/11/16 20:09 05:38 05:39 WBC 11.7 RBC 4.43 Hgb 13.4 L Hct 39.3 L MCV 88.7 MCH 30 MCHC 34.1 RDW 13.2 Plt Count 144 MPV 10.1 Neut % (Auto) 78.2 H Lymph % (Auto) 11.4 L [place] % (Auto) 8.1 Eos % (Auto) 1.0 Baso % (Auto) 0.4 Neut # (Auto) 9.2 H Lymph # (Auto) 1.3 L [place] # (Auto) 1.0 H Eos # (Auto) 0.1 Baso # (Auto) 0.1 Immature Gran % 0.9 Nucleated RBC % 0.0 Immature Gran # 0.10 Nucleated RBCs # 0.00 Sodium 142 Potassium 5.0 Chloride 108 H Carbon Dioxide 24 Anion Gap 15.0 BUN 30 H Creatinine 1.70 H GFR Calculation 38 BUN/Creatinine Ratio 17.00 Glucose 196 H POC Glucose 228 H Calculated Osmolality 293.1 Calcium 9.2 Magnesium 2.3 09/11/16 09/11/16 09/11/16 07:42 11:39 15:27 WBC RBC Hgb Hct MCV MCH MCHC RDW Plt Count MPV Neut % (Auto) Lymph % (Auto) [place] % (Auto) Eos % (Auto) Baso % (Auto) Neut # (Auto) Lymph # (Auto) [place] # (Auto) Eos # (Auto) Baso # (Auto) Immature Gran % Nucleated RBC % Immature Gran # Nucleated RBCs # Sodium Potassium Chloride Carbon Dioxide Anion Gap BUN Creatinine GFR Calculation BUN/Creatinine Ratio Glucose POC Glucose 196 H 212 H 262 H Calculated Osmolality Calcium Magnesium
--- NOTE | 2016-09-11 14:27 | Hospitalist Progress Note ---
Assessment and Plan (1) Severe aortic stenosis Status: Acute Assessment and plan: 1)severe aortic stenosis causing syncope- echo shows severe . cath tomorrow. 2)aflutter-on Eliquis. rate ok- was evans earlier. 3)HTN-controlled 4)hyperlipidemia 5)diabetes 6)leukocytosis 7)epistaxis- resolved. 8)carotid disease- right ICA 50-69% 9)renal disease- creatinine 1.7 down from 2.4. Current Visit: Yes (2) Bradycardia Status: Acute Current Visit: Yes (3) Hypertension Status: Chronic Current Visit: Yes (4) Syncope Status: Acute Current Visit: Yes (5) Chronic kidney disease Status: Chronic Current Visit: Yes Hospitalist: Subjective Interval history: Mr Frazier is feeing ok today. He is expecting left heart cath tomorrow to eval aortic valve and coronary arteries. No more syncope symptoms. He also has some right carotid disease. Exam - Constitutional Vitals: Period Temp Pulse Resp BP Sys/Hurtado Pulse Ox Last 24 Hr 97.0 F-100.4 F 72-88 16-20 130-165/59-73 95-99 General appearance: normal weight, no acute distress - Head Head exam: Present: normocephalic, atraumatic - Eye Eye exam: Present: EOMI. Absent: scleral icterus - Respiratory Respiratory exam: Present: clear to auscultation bilaterally - Cardiovascular Cardiovascular exam: Present: regular rate and rhythm - GI/Abdominal GI/Abdominal exam: Present: normal bowel sounds, soft. Absent: tenderness - Extremities Exam Extremities exam: Absent: edema Results - Labs CBC & BMP: 09/11/16 05:38 09/11/16 05:39 Lab Results: I have reviewed the past 24 hour labs Quality Measures - Stroke Onset of Symptoms Date: 09/05/16 Onset of Symptoms Time: 15:30 Symptom Onset Unknown: No
[2016-09-11] MEDS: cefTRIAXone 1,000 MG in SODIUM CHLORIDE 0.9% 100 ML IV SCH (17:02)
[2016-09-11] MEDS: AZITHROMYCIN INJ 500 MG in SODIUM CHLORIDE 0.9% 250 ML IV SCH (17:40)
[2016-09-11] MEDS: ATORVASTATIN 80 MG TABLET PO SCH (20:14)
[2016-09-11] MEDS: amLODIPine 10 MG TABLET PO SCH (20:30)
[2016-09-12] MEDS ORDERED: SIMETHICONE CHEW 80 MG TABLET PO PRN (02:06)
[2016-09-12 05:42] LABS: Basophils % 0.3 % (0.0-0.8); Hemoglobin 13.4 GM/DL (14.0-18.0); Immature Granulocytes Absolute 0.24 #; Lymphocytes # 0.8 10*3/uL (1.4-4.0); Lymphocytes % 6.4 % (21.2-54.2); Mean Corpuscular HGB Conc 33.5 GM/DL (32-36); Mean Corpuscular Hemoglobin 30 PG (27-34); Mean Corpuscular Volume 88.9 FL (87-102); Mean Platelet Volume 10.9 FL (9.6-12.0); Monocytes # 1.3 10*3/uL (0.11-0.8); Monocytes % 11.2 % (1.7-12.7); Neutrophils # 9.5 10*3/uL (1.4-7.4); Neutrophils % 80.1 % (38.7-73.9); Platelet Count 140 T/CUMM (130-400); Red Cell Distribution Width 13.7 % (9.3-17.3); White Blood Count 11.8 T/CUMM (4-12)
[2016-09-12 05:47] LABS: Calcium 9.1 MG/DL (8.5-10.1); Magnesium 2.1 MG/DL (1.8-2.4); Osmolality,Calculated 291.5 MOS/KG (273-304); Potassium 4.9 MMOL/L (3.5-5.1)
[2016-09-12 06:53] LABS: Hypochromasia Slight
[2016-09-12] MEDS: GLIMEPIRIDE 4 MG TABLET PO SCH ×3 (08:49→16:08)
[2016-09-12] MEDS: INSULIN LISPRO 100 UNIT/ML SUBCUT SCH ×5 (08:49→21:36)
[2016-09-12] MEDS: INSULIN GLARGINE 100 UNIT/ML SUBCUT SCH ×2 (08:49→09:33)
[2016-09-12] MEDS: POTASSIUM CHLORIDE 20 MEQ TABLET PO SCH ×2 (08:50→09:34)
[2016-09-12] MEDS: NIACIN 500 MG TABLET PO SCH ×2 (08:50→09:34)
--- NOTE | 2016-09-12 09:15 | Cardiology Progress Note ---
<Rosie Hsu E - Last Filed: 09/12/16 09:03> Assessment and Plan - Time spent with patient Time spent with patient: Less than 30 minutes (1) Severe aortic stenosis Status: Chronic Assessment and plan: SEE PLAN OF CARE LISTED BELOW. Current Visit: Yes (2) Syncope Status: Acute Assessment and plan: SEE PLAN OF CARE LISTED BELOW Current Visit: Yes (3) Atrial flutter by electrocardiogram Status: Acute Assessment and plan: SEE PLAN OF CARE LISTED BELOW Current Visit: Yes (4) Bradycardia Status: Acute Assessment and plan: SEE PLAN OF CARE LISTED BELOW Current Visit: Yes (5) Coronary artery disease Status: Chronic Assessment and plan: SEE PLAN OF CARE LISTED BELOW Current Visit: Yes (6) Hypertension Status: Chronic Assessment and plan: SEE PLAN OF CARE LISTED BELOW Current Visit: Yes (7) Hyperlipidemia Status: Chronic Assessment and plan: SEE PLAN OF CARE LISTED BELOW Current Visit: Yes (8) Diabetes mellitus Status: Chronic Assessment and plan: SEE PLAN OF CARE LISTED BELOW Current Visit: Yes Qualifiers: Diabetes mellitus type: type 2 (9) Chronic kidney disease Status: Chronic Assessment and plan: SEE PLAN OF CARE LISTED BELOW Current Visit: Yes (10) Leukocytosis Status: Resolved Assessment and plan: SEE PLAN OF CARE LISTED BELOW Current Visit: Yes (11) Epistaxis Status: Acute Assessment and plan: SEE PLAN OF CARE LISTED BELOW Current Visit: Yes Cardiology - PN: Subj Interval history: LEAD 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 ALEXANDER Mr. Frazier is a 86 year old male with a history of coronary artery disease, hypertension, hyperlipidemia, type 2 diabetes mellitus, chronic kidney disease. He is status post coronary artery bypass grafting August 06 2001 with SINGH to the LAD and vein graft to the circumflex marginal and right coronary arteries. He is status post right carotid endarterectomy July 03, 2002. He was admitted to the hospital after an episode of syncope and prolonged weakness. He was initially in atrial flutter, bradycardia, junctional rhythm, no atrial flutter, with normal conduction. He was on no zackery blocking agents. An echocardiogram was performed with showed severe aortic stenosis with preserved ejection fraction. He had some trivial troponin elevation in the setting of an elevated creatinine. Urine toxicology was negative. 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 He has done well over the weekend. He did have some epistaxis on Sunday which required packing by ENT. He has had no recurrent syncopal events. It was noted that his anticoagulation may need to be held for a day prior to [facility]. His creatinine is up to 1.8 today. We would ideally like to see his creatinine stabilized prior to proceeding with [facility]. We'll anticipate cath as soon as it is safe to proceed. We will await further recommendations from Dr. Lloyd. ASSESSMENT/PLAN: 1. SEVERE AORTIC STENOSIS - Severe per echocardiogram. This will need to be evaluated with cardiac catheterization. He initially had an elevated WBC, now normal. Creatinine was 2.4 on admission. This is slowly improving. Creatinine 1.8 today. He has severe aortic stenosis with aortic valve area estimated 0.8 cm with peak to peak gradient of 64. He has a high operative risk for aortic valve replacement but would likely benefit from TAVR if all his vein grafts and coronary anatomy is not in need of revascularization surgically. 2. SYNCOPE - Carotid doppler ultrasound reveals right ICA with 50-69% stenosis. CT of the brain was negative. This could have been related to bradycardia or his aortic stenosis. Neurology has seen him in consultation and does not feel he has suffered a TIA at this time. 3. ATRIAL FLUTTER - He is currently being anticoagulated with weight based Lovenox. Initially, treatment was limited with his bradycardia. Certainly if he has recurrent bradycardia, he may be a candidate for dual chamber pacemaker implantation. CHADSVASC 5, continue anticoagulation with Eliquis. He has been started on a beta demarco and has tolerated this well. 4. BRADYCARDIA - His clonidine was discontinued and bradycardia has improved. His rates have stayed fairly consistent in the 70s-80s, now occasionally up to 90s. We may need to adjust his beta demarco. 5. CORONARY ARTERY DISEASE - He is status post coronary artery bypass grafting August 06 2001 with SINGH to the LAD and vein graft to the circumflex marginal and right coronary arteries. Denies recent chest pain, heaviness, or tightness. Denies recent dyspnea or dyspnea on exertion. Preserved EF. Continue ASA, beta demarco, lipid-lowering agent. 6. HYPERTENSION - Mostly well controlled. Will continue to monitor and adjust accordingly. Heart rates now up to 80s-90s with some elevated blood pressure readings. Will increase his beta demarco dose and see how he tolerates this. 7. HYPERLIPIDEMIA - Continue lipid lowering agent. FLP revealed triglycerides 98 , cholesterol 127, LDL 60, HDL 54. 8. DIABETES - [facility] is following. He is on accuchecks with sliding scale insulin. 9. CHRONIC KIDNEY DISEASE - Monitor BMP. Will try to avoid nephrotoxic agents. 10. LEUKOCYTOSIS - He has been started on empiric antibiotics. Blood cultures are pending. He has been afebrile. He is receiving empiric treatment with IV antibiotics. WBC has been normal the past 3 days. 11. EPISTAXIS - Required packing by ENT on Sunday. He has had no further episodes since. H&H stable. We are currently continuing aspirin and Eliquis. Exam (Progress Note) - Constitutional Vitals: Period Temp Pulse Resp BP Sys/Hurtado Pulse Ox Last 24 Hr 96.6 F-100.2 F 72-93 20-20 126-161/59-70 92-98 Exam: General appearance: Pleasant and cooperative. Normal weight, no acute distress. - Head Head exam: Present: normal inspection, normocephalic, atraumatic. Absent: hematoma, laceration - Eye Eye exam: Present: EOMI. Absent: conjunctival injection, nystagmus, periorbital swelling, scleral icterus, laceration to eyelids Pupils: Present: PERRL. Absent: constricted, dilated, fixed, irregular, unequal - ENT ENT exam: Present: normal exam, normal external ear exam - Neck Neck exam: Present: normal inspection. Absent: lymphadenopathy, meningismus, tenderness, thyromegaly - Respiratory Respiratory exam: Present: clear to auscultation bilaterally. Absent: accessory muscle use, chest wall tenderness - Cardiovascular Cardiovascular exam: Present: irregular rate and rhythm, right carotid bruit, systolic murmur. Absent: gallop, JVD, rubs - GI/Abdominal GI/Abdominal exam: Present: normal bowel sounds, soft. Absent: distended, firm , guarding, hernia, mass, tenderness, rebound. - Extremities Exam Extremities exam: Present: normal inspection, normal capillary refill. Upper extremity pulses 2+. Lower extremity pulses 2+. Absent: calf tenderness, edema -Musculoskeletal Exam Musculoskeletal: Present: No Fluid Collection, No Pain, Normal Range of Motion - Back Exam Back exam: Present: normal inspection. Absent: muscle spasm, vertebral tenderness - Neurological Exam Neurological exam: Present: alert, oriented X3, grossly intact without resting or essential tremor - Psychiatric Psychiatric exam: Present: normal affect, normal mood - Skin Skin exam: Present: normal color, warm, dry, intact. Absent: cyanosis, diaphoretic, rash, urticaria Result/EKG - Labs CBC & BMP: 09/12/16 05:11 09/12/16 05:11 Lab Results: I have reviewed the past 24 hour labs Labs: Laboratory Results - last 24 hr 09/11/16 09/11/16 09/11/16 11:39 15:27 20:03 WBC RBC Hgb Hct MCV MCH MCHC RDW Plt Count MPV Neut % (Auto) Lymph % (Auto) [place] % (Auto) Eos % (Auto) Baso % (Auto) Neut # (Auto) Lymph # (Auto) [place] # (Auto) Eos # (Auto) Baso # (Auto) Immature Gran % Nucleated RBC % Immature Gran # Nucleated RBCs # Hypochromasia Sodium Potassium Chloride Carbon Dioxide Anion Gap BUN Creatinine GFR Calculation BUN/Creatinine Ratio Glucose POC Glucose 212 H 262 H 186 H Calculated Osmolality Calcium Magnesium 09/12/16 09/12/16 09/12/16 05:11 05:11 07:44 WBC 11.8 RBC 4.50 Hgb 13.4 L Hct 40.0 L MCV 88.9 MCH 30 MCHC 33.5 RDW 13.7 Plt Count 140 MPV 10.9 Neut % (Auto) 80.1 H Lymph % (Auto) 6.4 L [place] % (Auto) 11.2 Eos % (Auto) 0.0 Baso % (Auto) 0.3 Neut # (Auto) 9.5 H Lymph # (Auto) 0.8 L [place] # (Auto) 1.3 H Eos # (Auto) 0.0 Baso # (Auto) 0.0 Immature Gran % 2.0 Nucleated RBC % 0.0 Immature Gran # 0.24 Nucleated RBCs # 0.00 Hypochromasia Slight Sodium 139 Potassium 4.9 Chloride 108 H Carbon Dioxide 18 L Anion Gap 17.9 H BUN 35 H Creatinine 1.80 H GFR Calculation 36 BUN/Creatinine Ratio 19.00 Glucose 228 H POC Glucose 283 H Calculated Osmolality 291.5 Calcium 9.1 Magnesium 2.1 - EKG EKG results: interpreted by me (renetta) Quality Measures - Stroke Onset of Symptoms Date: 09/05/16 Onset of Symptoms Time: 15:30 Symptom Onset Unknown: No <Mariel Lloyd - Last Filed: 09/12/16 14:41> Assessment and Plan (1) Acute on chronic renal failure Status: Acute Assessment and plan: As above I discussed with the patient about his risk of perioperative complications from renal failure. Ideally we would wait a minimum of 2 weeks but his symptoms are rather significant. Current Visit: Yes (2) Atrial flutter by electrocardiogram Status: Acute Assessment and plan: Would allow his heart rate to run in the 90-110 range. Current Visit: Yes (3) Bradycardia Status: Acute Assessment and plan: This is likely the etiology of his syncope in the face of aortic stenosis which could be extremely dangerous and life-threatening. Current Visit: Yes (4) Epistaxis Status: Acute Current Visit: Yes (5) Hypertension Status: Acute Current Visit: Yes (6) Pulmonary hypertension Status: Chronic Assessment and plan: This is significant Current Visit: Yes (7) Severe aortic stenosis Status: Chronic Assessment and plan: Ideally he would be served with TAVR. Will await anatomy to determine best approach Current Visit: Yes (8) TIA (transient ischemic attack) Status: Acute Current Visit: Yes (9) Unsteady gait Status: Chronic Current Visit: Yes (10) Coronary artery disease Status: Chronic Current Visit: Yes Qualifiers: Coronary Disease-Associated Artery/Lesion type: [place] artery [place] vs. transplanted heart: [place] heart Associated angina: without angina Qualified Code(s): I25.10 - Atherosclerotic heart disease of [place] coronary artery without angina pectoris (11) Diabetes mellitus Status: Chronic Current Visit: Yes Qualifiers: Diabetes mellitus type: type 2 Cardiology - PN: Subj Interval history: I saw and examined Mr. Frazier with Ms. Hsu. Note is as above. This gentleman is very sick he has severe aortic stenosis he has had recent acute on chronic renal insufficiency and his creatinine remains elevated. He has had a decline in his bicarbonate as well. He has severe dyspnea he has had syncope which I think are likely related to his combination of atrial flutter bradycardia and aortic stenosis. He has had coronary bypass grafting in the past [address] Thaddeus Mehta and is at high risk for acute renal failure given the need for contrast exposure and recent renal insufficiency. I would like to postpone this as long as possible however he continues to have extreme dyspnea when walking across the room is had significant orthopnea despite his preserved ejection fraction. He is at high risk for complications I discussed this with the patient and his family I think if his creatinine does not increase significantly overnight we will likely try to proceed with left heart catheterization minimization of iso-osmolar contrast tomorrow. His advanced age and his comorbidities would suggest he may be an excellent Prakash candidate if he does not need redo coronary bypass grafting. He has significant pulmonary hypertension has diabetes chronic kidney disease and other associated comorbidities as outlined above. Will reassess in the morning off posted on the schedule for left heart catheterization tomorrow in anticipation of addressing the aortic valve either percutaneously or surgically depending on the findings of the coronary anatomy. Exam (Progress Note) - Constitutional Vitals: Period Temp Pulse Resp BP Sys/Hurtado Pulse Ox Last 24 Hr 96.6 F-100.2 F 69-93 20-20 126-161/59-70 92-98 Exam: Is a very harsh 3/6 murmur of aortic stenosis with delayed carotid upstroke. He has a single second heart sound is markedly diminished and radiates over the carotids bilaterally. He does not have rales. He is tachypneic. Result/EKG - Labs CBC & BMP: 09/12/16 05:11 09/12/16 05:11 Labs: Laboratory Results - last 24 hr 09/11/16 09/11/16 09/12/16 15:27 20:03 05:11 WBC 11.8 RBC 4.50 Hgb 13.4 L Hct 40.0 L MCV 88.9 MCH 30 MCHC 33.5 RDW 13.7 Plt Count 140 MPV 10.9 Neut % (Auto) 80.1 H Lymph % (Auto) 6.4 L [place] % (Auto) 11.2 Eos % (Auto) 0.0 Baso % (Auto) 0.3 Neut # (Auto) 9.5 H Lymph # (Auto) 0.8 L [place] # (Auto) 1.3 H Eos # (Auto) 0.0 Baso # (Auto) 0.0 Immature Gran % 2.0 Nucleated RBC % 0.0 Immature Gran # 0.24 Nucleated RBCs # 0.00 Hypochromasia Slight Sodium Potassium Chloride Carbon Dioxide Anion Gap BUN Creatinine GFR Calculation BUN/Creatinine Ratio Glucose POC Glucose 262 H 186 H Calculated Osmolality Calcium Magnesium 09/12/16 09/12/16 09/12/16 05:11 07:44 11:33 WBC RBC Hgb Hct MCV MCH MCHC RDW Plt Count MPV Neut % (Auto) Lymph % (Auto) [place] % (Auto) Eos % (Auto) Baso % (Auto) Neut # (Auto) Lymph # (Auto) [place] # (Auto) Eos # (Auto) Baso # (Auto) Immature Gran % Nucleated RBC % Immature Gran # Nucleated RBCs # Hypochromasia Sodium 139 Potassium 4.9 Chloride 108 H Carbon Dioxide 18 L Anion Gap 17.9 H BUN 35 H Creatinine 1.80 H GFR Calculation 36 BUN/Creatinine Ratio 19.00 Glucose 228 H POC Glucose 283 H 267 H Calculated Osmolality 291.5 Calcium 9.1 Magnesium 2.1
[2016-09-12] MEDS ORDERED: METOPROLOL TARTRATE 50 MG TABLET PO SCH (09:16)
[2016-09-12] MEDS: PANTOPRAZOLE 40 MG TABLET PO SCH (09:34)
[2016-09-12] MEDS: ASPIRIN EC 81 MG TABLET PO SCH (09:34)
[2016-09-12] MEDS: APIXABAN 2.5 MG TABLET PO SCH ×3 (09:35→21:36)
[2016-09-12] MEDS: METOPROLOL TARTRATE 25 MG TABLET PO SCH (09:35)
--- NOTE | 2016-09-12 13:32 | Hospitalist Progress Note ---
Assessment and Plan (1) Severe aortic stenosis Status: Chronic Assessment and plan: 1)severe aortic stenosis causing syncope- echo shows severe . cath tomorrow. 2)aflutter-on Eliquis. rate ok- 3)HTN-controlled 4)hyperlipidemia 5)diabetes 6)leukocytosis 7)epistaxis- resolved. 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 no prior visits for baseline. 10)nutrition- offer ensure with meals (he thought that sounded good) and get the ball assembler to discuss his food preferences with him. Current Visit: Yes (2) Bradycardia Status: Acute Current Visit: Yes (3) Hypertension Status: Chronic Current Visit: Yes (4) Syncope Status: Acute Current Visit: Yes (5) Chronic kidney disease Status: Chronic Current Visit: Yes Hospitalist: Subjective Interval history: Mr Frazier complains of not liking the food here. He says he is hungry but can' t eat what he is served. He is feelin weak due to this. No syncope, no shortness of breath. no chest pain. 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 Exam - Constitutional Vitals: Period Temp Pulse Resp BP Sys/Hurtado Pulse Ox Last 24 Hr 96.6 F-100.2 F 69-93 20-20 126-161/59-70 92-98 General appearance: normal weight, no acute distress - Eye Eye exam: Present: EOMI. Absent: scleral icterus - Respiratory Respiratory exam: Present: clear to auscultation bilaterally - Cardiovascular Cardiovascular exam: Present: regular rate and rhythm, systolic murmur - GI/Abdominal GI/Abdominal exam: Present: normal bowel sounds, soft. Absent: tenderness - Extremities Exam Extremities exam: Absent: edema Results - Labs CBC & BMP: 09/12/16 05:11 09/12/16 05:11 Quality Measures - Stroke Onset of Symptoms Date: 09/05/16 Onset of Symptoms Time: 15:30 Symptom Onset Unknown: No
[2016-09-12] MEDS ORDERED: diphenhydrAMINE CAP 25 MG CAPSULE PO ONE (14:35)
[2016-09-12] MEDS ORDERED: DIAZEPAM 5 MG TABLET PO ONE (14:35)
[2016-09-12] MEDS: CITRIC ACID/SODIUM CITRATE 30 ML UDCUP PO SCH ×2 (16:08→21:36)
[2016-09-12] MEDS ORDERED: ALBUTEROL/IPRATROPIUM 3 ML NEB RESP TX ONE (20:51)
[2016-09-12] MEDS: ATORVASTATIN 80 MG TABLET PO SCH (21:35)
--- NOTE | 2016-09-12 21:36 | XRay Report ---
XR chest 2V Indication: Wheezing. Chest 2 views: Comparison 09/09/2016. Very small bilateral pleural effusions are now present, with some degree of atelectasis noted. Additionally, interstitial prominence of the lungs is increased with a fine reticular pattern now present. No focal pneumonia seen. Heart size remains normal with postoperative changes median sternotomy. Impression: Very small bilateral pleural effusions now present. Progressive atelectasis. Minimal increased reticular prominence of the lungs, likely mild edema. PROCEDURE INTERPRETED AT [facility] DEPARTMENT OF RADIOLOGY Final Report Signed by: Roldan Narvaez M.D.
[2016-09-12] MEDS: amLODIPine 10 MG TABLET PO SCH (21:39)
[2016-09-13] MEDS: SODIUM CHLORIDE 0.45% 1,000 ML IV SCH ×2 (05:07→08:45)
[2016-09-13] MEDS ORDERED: FUROSEMIDE 40 MG/4 ML VIAL IV ONE (05:32)
[2016-09-13 05:44] LABS: Basophils % 0.2 % (0.0-0.8); Hematocrit 36.4 VOL% (42.0-52.0); Hemoglobin 12.1 GM/DL (14.0-18.0); Immature Granulocytes % 1.6 %; Lymphocytes # 0.6 10*3/uL (1.4-4.0); Lymphocytes % 4.7 % (21.2-54.2); Mean Corpuscular HGB Conc 33.2 GM/DL (32-36); Mean Corpuscular Hemoglobin 30 PG (27-34); Mean Platelet Volume 10.7 FL (9.6-12.0); Monocytes # 0.9 10*3/uL (0.11-0.8); Monocytes % 7.2 % (1.7-12.7); NRBC # 0.02 10*3/uL; Neutrophils # 11.1 10*3/uL (1.4-7.4); Neutrophils % 86.3 % (38.7-73.9); Platelet Count 153 T/CUMM (130-400); Red Blood Count 4.09 MC/CUMM (3.8-5.5); Red Cell Distribution Width 13.9 % (9.3-17.3); White Blood Count 12.9 T/CUMM (4-12)
[2016-09-13 06:08] LABS: Band Neutrophils 1 % (0-10); Hypochromasia 1+; Lymphocytes 6 % (20-55); Ovalocytes Slight; Platelet Estimate Normal; Segmented Neutrophils 84 % (50-85); Total Cells Counted 100
[2016-09-13 06:12] LABS: Magnesium 2.5 MG/DL (1.8-2.4); Osmolality,Calculated 296.7 MOS/KG (273-304); Potassium 5.3 MMOL/L (3.5-5.1)
--- NOTE | 2016-09-13 07:22 | Cardiology Progress Note ---
Assessment and Plan (1) Acute on chronic renal failure Status: Acute Assessment and plan: As above I discussed with the patient about his risk of perioperative complications from renal failure. Ideally we would wait a minimum of 2 weeks but his symptoms are rather significant. Current Visit: Yes (2) Atrial flutter by electrocardiogram Status: Acute Assessment and plan: Would allow his heart rate to run in the 90-110 range. Current Visit: Yes (3) Bradycardia Status: Acute Assessment and plan: His rate is acceptable he is in atrial flutter.. Current Visit: Yes (4) Epistaxis Status: Acute Current Visit: Yes (5) Hypertension Status: Acute Current Visit: Yes (6) Pulmonary hypertension Status: Chronic Assessment and plan: This is significant Current Visit: Yes (7) Severe aortic stenosis Status: Chronic Assessment and plan: Ideally he would be served with TAVR. Will await anatomy to determine best approach Current Visit: Yes (8) TIA (transient ischemic attack) Status: Acute Current Visit: Yes (9) Unsteady gait Status: Chronic Current Visit: Yes (10) Coronary artery disease Status: Chronic Current Visit: Yes Qualifiers: Coronary Disease-Associated Artery/Lesion type: [place] artery [place] vs. transplanted heart: [place] heart Associated angina: without angina Qualified Code(s): I25.10 - Atherosclerotic heart disease of [place] coronary artery without angina pectoris (11) Diabetes mellitus Status: Chronic Current Visit: Yes Qualifiers: Diabetes mellitus type: type 2 Cardiology - PN: Subj Interval history: Mr. Frazier is in a very difficult situation. He becomes progressively more tachypneic and has chronic renal insufficiency. His creatinine was 2.4 admission was down to 1.8 and his crept back up. Ideally we would wait a few weeks before we proceed with contrast exposure he has chronic renal disease on his ultrasound however I think given the fact that he is progressively more dyspneic and tachypneic even at rest we probably should proceed with left heart catheterization. I pointed out to he and his son and he is a very high risk for worsening renal insufficiency. I discussed with Dr. Amin yesterday and the plan was to cath if his creatinine remained stable however it is going back up. I will discuss with Dr. Amin about his situation and if he is willing to cath will probably cath the patient today. He is clearly getting worse from a cardiopulmonary standpoint. I reviewed the lab work from our office in 2013 the patient's creatinine was 1.54. This is clearly chronic. Not that far above his baseline. I think given his worsening pulmonary and cardiac status with his aortic stenosis and artery bypass grafting we should proceed. This is not ideal but I think it is the best we have at this time. Exam (Progress Note) - Constitutional Vitals: Period Temp Pulse Resp BP Sys/Hurtado Pulse Ox Last 24 Hr 97.0 F-100.9 F 67-96 16-24 125-143/58-81 90-98 General appearance: normal weight - Head Head exam: Present: normal inspection - Eye Eye exam: Present: EOMI Pupils: Present: FATOUMATA - Respiratory Respiratory exam: Present: rales, wheezes (A prolonged terminal push) - Cardiovascular Cardiovascular exam: Present: regular rate and rhythm (Murmur of aortic stenosis without change) - GI/Abdominal GI/Abdominal exam: Present: normal bowel sounds - Extremities Exam Extremities exam: Present: normal inspection - Back Exam Back exam: Present: normal inspection - Neurological Exam Neurological exam: Present: alert, oriented X3 - Psychiatric Psychiatric exam: Present: normal affect, normal mood - Skin Skin exam: Present: normal color, warm Result/EKG - Labs CBC & BMP: 09/13/16 05:18 09/13/16 05:18 Labs: Laboratory Results - last 24 hr 09/12/16 09/12/16 09/12/16 07:44 11:33 15:04 WBC RBC Hgb Hct MCV MCH MCHC RDW Plt Count MPV Neut % (Auto) Lymph % (Auto) [place] % (Auto) Eos % (Auto) Baso % (Auto) Neut # (Auto) Lymph # (Auto) [place] # (Auto) Eos # (Auto) Baso # (Auto) Total Counted Immature Gran % Nucleated RBC % Immature Gran # Segmented Neutrophils Band Neutrophils Lymphocytes Monocytes Nucleated RBCs # Platelet Estimate Hypochromasia Ovalocytes Morphology Comment Sodium Potassium Chloride Carbon Dioxide Anion Gap BUN Creatinine GFR Calculation BUN/Creatinine Ratio Glucose POC Glucose 283 H 267 H 405 H Calculated Osmolality Calcium Magnesium 09/12/16 09/13/16 09/13/16 20:19 05:18 05:18 WBC 12.9 H RBC 4.09 Hgb 12.1 L Hct 36.4 L MCV 89.0 MCH 30 MCHC 33.2 RDW 13.9 Plt Count 153 MPV 10.7 Neut % (Auto) 86.3 H Lymph % (Auto) 4.7 L [place] % (Auto) 7.2 Eos % (Auto) 0.0 Baso % (Auto) 0.2 Neut # (Auto) 11.1 H Lymph # (Auto) 0.6 L [place] # (Auto) 0.9 H Eos # (Auto) 0.0 Baso # (Auto) 0.0 Total Counted 100 Immature Gran % 1.6 Nucleated RBC % 0.2 Immature Gran # 0.20 Segmented Neutrophils 84 Band Neutrophils 1 Lymphocytes 6 L Monocytes 9 Nucleated RBCs # 0.02 Platelet Estimate Normal Hypochromasia 1+ Ovalocytes Slight Morphology Comment Sodium 138 Potassium 5.3 H Chloride 105 Carbon Dioxide 21 Anion Gap 17.3 H BUN 55 H Creatinine 2.10 H GFR Calculation 30 BUN/Creatinine Ratio 26.00 H Glucose 233 H POC Glucose 209 H Calculated Osmolality 296.7 Calcium 9.0 Magnesium 2.5 H Quality Measures - Stroke Onset of Symptoms Date: 09/05/16 Onset of Symptoms Time: 15:30 Symptom Onset Unknown: No
[2016-09-13] MEDS: INSULIN LISPRO 100 UNIT/ML SUBCUT SCH ×4 (07:50→20:55)
[2016-09-13] MEDS: GLIMEPIRIDE 4 MG TABLET PO SCH ×2 (07:51→16:48)
[2016-09-13] MEDS ORDERED: HEPARIN/NACL 0.9% 2 UNITS/ML 1,000 ML IV ONE (08:30)
[2016-09-13] MEDS ORDERED: diphenhydrAMINE CAP 25 MG CAPSULE PO ONE (08:30)
[2016-09-13] MEDS ORDERED: LIDOCAINE 1% 20 ML VIAL ONE (08:30)
[2016-09-13] MEDS ORDERED: DIAZEPAM 5 MG TABLET PO ONE (08:30)
[2016-09-13] MEDS: ASPIRIN EC 81 MG TABLET PO SCH (08:41)
[2016-09-13] MEDS: METOPROLOL TARTRATE 25 MG TABLET PO SCH ×2 (08:41→20:54)
[2016-09-13] MEDS: POTASSIUM CHLORIDE 20 MEQ TABLET PO SCH (08:43)
[2016-09-13] MEDS: CITRIC ACID/SODIUM CITRATE 30 ML UDCUP PO SCH ×3 (08:43→20:55)
[2016-09-13] MEDS: NIACIN 500 MG TABLET PO SCH (08:44)
[2016-09-13] MEDS: INSULIN GLARGINE 100 UNIT/ML SUBCUT SCH (08:44)
[2016-09-13] MEDS: PANTOPRAZOLE 40 MG TABLET PO SCH (08:44)
[2016-09-13] MEDS ORDERED: MIDAZOLAM 2 MG/2 ML VIAL ONE (08:52)
[2016-09-13] MEDS ORDERED: HYDROmorphone 2 MG/1 ML VIAL ONE (08:52)
--- NOTE | 2016-09-13 09:46 | Cardiac Catheterization ---
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 He is undergoing cardiac catheterization for definitive coronary artery assessment for possible valve replacement. PROCEDURES PERFORMED: 1. Right femoral percutaneous arteriotomy 2. Left heart catheterization. 3. Resting hemodynamics. 4. Coronary arteriography. 5. Right femoral arteriogram. 6. Angio-Seal closure of the right femoral artery. 7. Coronary artery bypass graft angiography. DESCRIPTION OF PROCEDURE: After obtaining informed consent, the patient was brought to the cardiac catheterization lab where the right groin was prepped and draped in the usual sterile manner. Using IV sedation, local anesthesia, and Modified Seldinger technique, a needle was placed in the right femoral artery and a sheath was positioned without difficulty. A left coronary catheter was advanced over a guidewire under fluoroscopic control to the ascending aorta where angiograms of the left coronary artery were undertaken in multiple views. After adequate angiograms, this catheter was withdrawn and a right coronary catheter was advanced over a guidewire under fluoroscopic control to the ascending aorta with angiograms of the RCA were undertaken in numerous projections. We then used this catheter to perform angiography of the 2 saphenous vein grafts and left internal mammary arterial graft. After adequate angiograms, this catheter was removed and a pigtail ventriculographic catheter was advanced over a guidewire under fluoroscopic control to the aortic valve and left ventricular pressures were measured. After adequate pressures were measured, this catheter was withdrawn under hemodynamic monitoring and removed from the patient. A right femoral arteriogram was performed showing adequate sheath placement for closure device deployment. The sheath was then removed and an Angio-Seal device was used to obtain hemostasis. The patient was transferred back to the room having suffered no immediate complications. HEMODYNAMICS: See the accompanying data sheet. The patient has a peak to peak gradient of approximately 35 mmHg. His left ventricular end-diastolic pressure was CORONARY ARTERIOGRAPHY: LEFT MAIN: The left main coronary artery is a large caliber vessel, which bifurcates into the left anterior descending and left circumflex coronary arteries. There is extensive calcification of this vessel with an ostial 80-90 % stenosis.. LEFT CIRCUMFLEX: The left circumflex coronary artery is a moderate-sized vessel which gives off a small obtuse marginal branch before a complete occlusion in its mid segment. The second obtuse marginal branches seen filling via patent saphenous vein graft. LEFT ANTERIOR DESCENDING: The left anterior descending artery is a moderate- sized vessel which gives off a couple of small diagonal branches. There is moderate disease in the proximal vessel of up to 50%. It is subtotaled in its mid segment with competitive filling from a patent left internal mammary arterial graft. RIGHT CORONARY ARTERY: The right coronary artery is a moderate-sized vessel which gives off the posterior descending artery and a posterior lateral system. There is moderate diffuse disease up to 50% throughout the proximal and mid right coronary artery but this does not appear to be flow-limiting. Saphenous vein graft to right coronary artery: This graft is occluded at its origin. Saphenous vein graft to obtuse marginal branch: There appears to be a proximal/ ostial pinch of up to 80% in this graft. The remainder of the graft is widely patent. Left internal mammary artery to left anterior descending graft: This graft is widely patent throughout its course. PERIPHERAL ARTERIOGRAPHY: Right femoral arteriogram shows a normal right iliofemoral artery with adequate sheath placement for closure device deployment. IMPRESSIONS: 1. Severe [place] three-vessel and ostial left main coronary artery disease as described above. 2. 2 of 3 bypass grafts are patent. There is an ostial pinch in the saphenous vein graft to the obtuse marginal branch. The right coronary artery graft is occluded but the right coronary artery does not have any significant high-grade disease at this time. 3. Known severe aortic stenosis by echo. The peak to peak gradient on catheterization is approximately 35 mmHg. 4. Normal right iliofemoral artery with successful insular closure of this vessel. PLAN: The patient will be transferred back to his room for recovery. We attempted to minimize dye exposure due to his renal insufficiency. We used approximately 67 cc of Visipaque. We will keep an eye on his renal function. The case was discussed with Dr. Fernandes today who came and reviewed the angiograms as well. His best option for management may be TAVR. This option has been discussed with the family and can be discussed with the patient further after he recovers from the sedation. Intervention on the saphenous vein graft to the obtuse marginal branch could also be considered in the future if clinically indicated. Anesthesia: minimal conscious sedation Surgeon / Physician: Mello Amin Estimated blood loss: minimal Condition: stable Disposition: floor - Medications / Follow-up
[2016-09-13] MEDS ORDERED: SODIUM CHLORIDE 0.9% 1,000 ML IV SCH (10:00)
[2016-09-13] MEDS ORDERED: DEXTROSE 50% 25 GM/50 ML VIAL IV PRN (10:08)
[2016-09-13] MEDS ORDERED: GLUCAGON 1 MG VIAL IM PRN (10:08)
--- NOTE | 2016-09-13 14:40 | Event Note ---
How long discussion with the patient. Also discussed with Dr. Mehta went to the [facility] reviewed and discussed the case with Dr. Amin at the time of his left heart cath. This gentleman has severe aortic stenosis severe pulmonary hypertension renal insufficiency and advanced age. His pulmonary hypertension is probably multifactorial although I am concerned it may be some primary component initially felt it was likely due to his aortic valve however his left ventricular end diastolic pressure was 15 a left heart cath today. He also has grade 3 diastolic dysfunction by transthoracic echo which may be playing a role. I think the patient's valve likely needs to be treated. I will get input from Dr. Mehta about his surgical risk open AVR versus Prakash will also ask Dr. Wong to see for pulmonary hypertension and make recommendations. His pulmonary hypertension plays a significant role in his potential perioperative morbidity and mortality as this is renal insufficiency. I discussed with the patient told him that these consultants would be seeing him. If his access site looks good tomorrow we will resume his anticoagulation for his dysrhythmia.
--- NOTE | 2016-09-13 15:30 | Event Note ---
I discussed case with Dr Lloyd. We will transfer Mr Frazier to the [facility] service. [facility] signing off.
[2016-09-13] MEDS: amLODIPine 10 MG TABLET PO SCH (20:54)
[2016-09-13] MEDS: ATORVASTATIN 80 MG TABLET PO SCH (20:55)
[2016-09-14] MEDS ORDERED: ALBUTEROL 2.5 MG/3 ML NEB RESP TX ONE (04:46)
[2016-09-14 05:04] LABS: Basophils % 0.2 % (0.0-0.8); Hematocrit 35.9 VOL% (42.0-52.0); Hemoglobin 12.1 GM/DL (14.0-18.0); Immature Granulocytes % 1.1 %; Immature Granulocytes Absolute 0.17 #; Lymphocytes # 0.8 10*3/uL (1.4-4.0); Lymphocytes % 4.9 % (21.2-54.2); Mean Corpuscular HGB Conc 33.7 GM/DL (32-36); Mean Corpuscular Hemoglobin 30 PG (27-34); Mean Corpuscular Volume 88.9 FL (87-102); Mean Platelet Volume 11.4 FL (9.6-12.0); Monocytes % 6.4 % (1.7-12.7); Neutrophils % 87.4 % (38.7-73.9); Platelet Count 180 T/CUMM (130-400); Red Blood Count 4.04 MC/CUMM (3.8-5.5); Red Cell Distribution Width 13.8 % (9.3-17.3)
[2016-09-14 05:35] LABS: Hypochromasia 1+; Lymphocytes 9 % (20-55); Microcytosis Slight; Segmented Neutrophils 86 % (50-85); Total Cells Counted 100
[2016-09-14 05:36] LABS: Platelet Estimate Adequate
[2016-09-14 05:43] LABS: Calcium 8.9 MG/DL (8.5-10.1); Magnesium 2.7 MG/DL (1.8-2.4); Osmolality,Calculated 302.8 MOS/KG (273-304); Potassium 5.1 MMOL/L (3.5-5.1)
--- NOTE | 2016-09-14 05:50 | Cardiology Progress Note ---
Assessment and Plan (1) Acute on chronic renal failure Status: Acute Assessment and plan: As above I discussed with the patient about his risk of perioperative complications from renal failure. Ideally we would wait a minimum of 2 weeks but his symptoms are rather significant. Current Visit: Yes (2) Atrial flutter by electrocardiogram Status: Acute Assessment and plan: Would allow his heart rate to run in the 90-110 range. Current Visit: Yes (3) Bradycardia Status: Resolved Assessment and plan: His rate is acceptable he is in atrial flutter.. Current Visit: Yes (4) Epistaxis Status: Acute Assessment and plan: This could be the etiology of the patient's blood-tinged sputum. He has not had any more epistaxis but posterior bleeding could precipitate this this also could explain hypoxemia. Current Visit: Yes (5) Hypertension Status: Acute Current Visit: Yes (6) Pulmonary hypertension Status: Chronic Assessment and plan: This is significant Current Visit: Yes (7) Severe aortic stenosis Status: Chronic Assessment and plan: Ideally he would be served with TAVR. Will await anatomy to determine best approach Current Visit: Yes (8) TIA (transient ischemic attack) Status: Acute Current Visit: Yes (9) Unsteady gait Status: Chronic Current Visit: Yes (10) Coronary artery disease Status: Chronic Current Visit: Yes Qualifiers: Coronary Disease-Associated Artery/Lesion type: [place] artery [place] vs. transplanted heart: [place] heart Associated angina: without angina Qualified Code(s): I25.10 - Atherosclerotic heart disease of [place] coronary artery without angina pectoris (11) Diabetes mellitus Status: Chronic Current Visit: Yes Qualifiers: Diabetes mellitus type: type 2 (12) Hypoxemia Status: Acute Current Visit: Yes Cardiology - PN: Subj Interval history: I was called this morning see the patient because he is acutely more short of breath and his O2 saturations were decreasgin. His HR and blood pressure were good. I came to evaluate him at the bedside. The the report that I received from nursing was the patient's vital signs were stable his heart rate was good his labs were still pending. I reviewed his labs now that they are back his white count has increased his creatinine has remained stable at 2.1 post cath. The patient denies any chest pain. He is just severely dyspneic. He has a new finding of some blood tinged dark brown almost kavita appearing sputum. He also has some mild increase of his white count from 12,000-16,000. There is no documented fever. He did have epistaxis on this admission and this sputum may be residual left over from potential posterior nasopharyngeal bleeding. Consider primary pathology of the pulmonary tree though. I will initiate antibiotics on the patient will also get venous Dopplers. He has pulmonary hypertension that severe he has been on anticoagulation since hospitalized for his atrial fibrillation and I think DVT is unlikely this most likely represents an underlying infection or may simply be from his pulmonary hypertension. The patient has renal insufficiency so CT PE protocol was not reasonable thing at this time. I will look at his chest x-ray if it is normal consider VQ scan. CTEP could be the etiology of his pulmonary hypertension as well. I will get sputum cultures and go ahead and initiate empiric antibiotics for possible hospital-acquired pneumonitis while chest x-ray etc. are pending. We will adjust Levaquin dose for his renal insufficiency. Cardiothoracic surgery and pulmonary to see this morning. I do not think this is from the patient's aortic stenosis especially given his end-diastolic pressure 15 a left heart catheterization yesterday. With his renal insufficiency and his pulmonary hypertension now worsening pulmonary status he appears to be less attractive surgical candidate hopefully what ever is causing his tachypnea and hypoxemia at this time will be reversible. Overall Mr. Frazier is struggling at this time he has many disease processes that are interacting and making his clinical course difficult. He has pulmonary hypertension, hypoxemia, coronary artery disease, renal insufficiency , and valvular heart disease. This in the background of his advanced age make his situation tenuous Exam (Progress Note) - Constitutional Vitals: Period Temp Pulse Resp BP Sys/Hurtado Pulse Ox Last 24 Hr 97.4 F-98.4 F 67-86 16-68 111-140/52-75 90-97 General appearance: normal weight, mild distress - Head Head exam: Present: normal inspection - Eye Eye exam: Present: EOMI Pupils: Present: FATOUMATA - Neck Neck exam: Present: normal inspection, other (I can appreciate JVD) - Respiratory Respiratory exam: Present: rales, rhonchi (Seems to be more prominent on the left), wheezes, other (Patient has blood-tinged kavita looking thick sputum and a cup.) - Cardiovascular Cardiovascular exam: Present: regular rate and rhythm (Murmur of aortic stenosis and mitral regurgitation without change rate is controlled) - GI/Abdominal GI/Abdominal exam: Present: normal bowel sounds - Extremities Exam Extremities exam: Present: normal inspection - Back Exam Back exam: Present: normal inspection - Neurological Exam Neurological exam: Present: alert, oriented X3 - Psychiatric Psychiatric exam: Present: normal affect, normal mood - Skin Skin exam: Present: normal color, warm Result/EKG - Labs CBC & BMP: 09/14/16 04:25 09/14/16 04:25 Labs: Laboratory Results - last 24 hr 09/13/16 09/13/16 09/13/16 05:18 05:18 07:31 WBC RBC Hgb Hct MCV MCH MCHC RDW Plt Count MPV Neut % (Auto) Lymph % (Auto) [place] % (Auto) Eos % (Auto) Baso % (Auto) Neut # (Auto) Lymph # (Auto) [place] # (Auto) Eos # (Auto) Baso # (Auto) Total Counted 100 Immature Gran % Nucleated RBC % Immature Gran # Segmented Neutrophils 84 Band Neutrophils 1 Lymphocytes 6 L Monocytes 9 Nucleated RBCs # Platelet Estimate Normal Hypochromasia 1+ Microcytosis Ovalocytes Slight Morphology Comment Sodium 138 Potassium 5.3 H Chloride 105 Carbon Dioxide 21 Anion Gap 17.3 H BUN 55 H Creatinine 2.10 H GFR Calculation 30 BUN/Creatinine Ratio 26.00 H Glucose 233 H POC Glucose 257 H Calculated Osmolality 296.7 Calcium 9.0 Magnesium 2.5 H 09/13/16 09/13/16 09/13/16 11:40 16:05 20:53 WBC RBC Hgb Hct MCV MCH MCHC RDW Plt Count MPV Neut % (Auto) Lymph % (Auto) [place] % (Auto) Eos % (Auto) Baso % (Auto) Neut # (Auto) Lymph # (Auto) [place] # (Auto) Eos # (Auto) Baso # (Auto) Total Counted Immature Gran % Nucleated RBC % Immature Gran # Segmented Neutrophils Band Neutrophils Lymphocytes Monocytes Nucleated RBCs # Platelet Estimate Hypochromasia Microcytosis Ovalocytes Morphology Comment Sodium Potassium Chloride Carbon Dioxide Anion Gap BUN Creatinine GFR Calculation BUN/Creatinine Ratio Glucose POC Glucose 279 H 352 H 208 H Calculated Osmolality Calcium Magnesium 09/14/16 09/14/16 04:25 04:25 WBC 16.0 H RBC 4.04 Hgb 12.1 L Hct 35.9 L MCV 88.9 MCH 30 MCHC 33.7 RDW 13.8 Plt Count 180 MPV 11.4 Neut % (Auto) 87.4 H Lymph % (Auto) 4.9 L [place] % (Auto) 6.4 Eos % (Auto) 0.0 Baso % (Auto) 0.2 Neut # (Auto) 14.0 H Lymph # (Auto) 0.8 L [place] # (Auto) 1.0 H Eos # (Auto) 0.0 Baso # (Auto) 0.0 Total Counted 100 Immature Gran % 1.1 Nucleated RBC % 0.0 Immature Gran # 0.17 Segmented Neutrophils 86 H Band Neutrophils Lymphocytes 9 L Monocytes 5 Nucleated RBCs # 0.00 Platelet Estimate Adequate Hypochromasia 1+ Microcytosis Slight Ovalocytes Morphology Comment Sodium 137 Potassium 5.1 Chloride 103 Carbon Dioxide 22 Anion Gap 17.1 H BUN 70 H D Creatinine 2.10 H GFR Calculation 30 BUN/Creatinine Ratio 33.00 H Glucose 264 H POC Glucose Calculated Osmolality 302.8 Calcium 8.9 Magnesium 2.7 H Quality Measures - Stroke Onset of Symptoms Date: 09/05/16 Onset of Symptoms Time: 15:30 Symptom Onset Unknown: No
[2016-09-14] MEDS: LEVOFLOXACIN INJ 250 MG in PREMIX 1 EACH IV SCH (06:05)
[2016-09-14 06:09] LABS: ABG Base Excess -2.4 MMOL/L (-2.5-2.5); ABG HCO3 20.3 MMOL/L (20-26); ABG PCO2 28.8 MM HG (35-48); ABG PH 7.465 (7.35-7.45); ABG PO2 64.1 MM HG (80-95); ABG TCO2 21.1 MMOL/L (23-27); Allen Test Positive; Pt O2 Delivery Device Ventilator
[2016-09-14] MEDS ORDERED: FUROSEMIDE 40 MG/4 ML VIAL IV ONE (08:05)
--- NOTE | 2016-09-14 08:08 | Pulmonology Consult Note ---
Assessment and Plan (1) Syncope Status: Acute Assessment and plan: Syncope likely due to cardiac causes related to his aortic stenosis. Current Visit: Yes (2) Chronic kidney disease Status: Chronic Assessment and plan: Creatinine is 2.1. He has had some renal insufficiency for quite some time related to vascular disease and diabetes. At present I think he is ahead on fluid. I will bump him with Lasix. Current Visit: Yes (3) Coronary artery disease Status: Chronic Assessment and plan: Previous coronary bypass surgery with additional findings at catheterization this admission. Current Visit: Yes Qualifiers: Coronary Disease-Associated Artery/Lesion type: [place] artery [place] vs. transplanted heart: [place] heart Associated angina: without angina Qualified Code(s): I25.10 - Atherosclerotic heart disease of [place] coronary artery without angina pectoris (4) Pulmonary hypertension Status: Chronic Assessment and plan: This was not quantified on the echo but is likely to be secondary to his left heart disease with aortic stenosis. Current Visit: Yes (5) Severe aortic stenosis Status: Chronic Assessment and plan: Has severe aortic stenosis by echo and catheterization. Likely the possible cause of his congestive heart failure and pulmonary hypertension. Current Visit: Yes (6) Diabetes mellitus Status: Chronic Assessment and plan: Has some hyperglycemia. Adding sliding scale. Current Visit: Yes Qualifiers: Diabetes mellitus type: type 2 (7) Acute bronchitis Status: Acute Assessment and plan: Based on the change in sputum color and elevated white count 16,000 think is reasonable to cover him with antibiotics for this. Will use Atrovent for bronchodilators. Current Visit: Yes History of Present Illness Chief complaint: Cough shortness of breath History of present illness: Mr. Frazier is a 86 year old male who was admitted about a week ago after an episode of syncope. Evaluation has shown that he has moderate to severe aortic stenosis. Also found to have pulmonary hypertension which presumably is secondary to the left heart disease. This is felt to be the cause of his syncope. He also has multivessel coronary disease. He has had previous coronary bypass surgery. I have been following him ever since that time. He had a left pleurectomy due to postoperative complications. Since she is coming and he has developed pleural effusions and appears to be in a little congestive heart failure. His creatinine is elevated at 2.1. He is more short of breath this morning. He is coughing up some bloody phlegm. He has been started on Levaquin which I think is reasonable. He was a smoker until about 30 years ago but really does not have COPD. He may have some chronic bronchitis. Home Medications Medication Instructions Recorded Confirmed Type Furosemide [Furosemide] 40 mg PO DAILY 11/23/14 09/06/16 History Metoprolol Succinate 25 mg PO BID 11/23/14 09/06/16 History NIFEdipine [Nifedipine ER] 30 mg PO DAILY 11/23/14 09/06/16 History Simvastatin 80 mg PO AC SUPPER 11/23/14 09/06/16 History cloNIDine HCl [Clonidine HCl] 0.2 mg PO BID 11/23/14 09/06/16 History glyBURIDE MICRONIZED [Glynase] 6 mg PO BID W/MEALS 11/23/14 09/06/16 History metOLazone [Metolazone] 2.5 mg PO QOTHER DAY 11/23/14 09/06/16 History Aspirin EC Tab 325 mg PO DAILY 09/06/16 09/06/16 History Glimepiride [Glimepiride] 4 mg PO BID 09/06/16 09/06/16 History Loratadine Tab [Claritin Tab] 10 mg PO DAILY PRN 09/06/16 09/06/16 History Niacin (Inositol Niacinate) 500 mg PO DAILY 09/06/16 09/06/16 History [Niacin 500 mg Capsule] Allergies Allergy/AdvReac Type Severity Reaction Status Date / Time Sulfa (Sulfonamide Allergy Unknown/Unable Verified 11/23/14 16:00 Antibiotics) to obtain 12 point system: reviewed and no additional remarkable complaints except as stated - Cardiovascular Cardiovascular: Present: dyspnea, dyspnea on exertion - Respiratory Respiratory: Present: cough, dyspnea, dyspnea on exertion, change in phlegm color Exam (Pulmonay) H&P - Constitutional Vitals: Period Temp Pulse Resp BP Sys/Hurtado Pulse Ox Last 24 Hr 97.4 F-98.4 F 67-86 16-68 111-140/52-75 90-95 Exam: He is afebrile. Oxygen saturation acceptable on facemask oxygen. He had a room air O2 sat of 98% on admission. Pupils react to light. Throat is clear. Neck supple no bruits. Chest shows a few scattered rhonchi and some bibasilar crackles. Heart normal rate and rhythm with 2/6 systolic murmur at the right base. Abdomen soft nontender no masses. Bowel sounds present. Extremities no clubbing cyanosis or edema. Calves nontender. Medical,Surgical,& Family Hx - Medical History Cardio: History of: [place], Pacemaker Endocrine: History of: Diabetes Mellitus (NIDDM) - Surgical History Cardiac Surgeries: Sugical HX of: Cardiac Surgery, Carotid Endarterectomy Thoracic Surgeries: Patient denies;: Organ Transplant HEENT Surgeries: Surgical HX of: Carotid Endarterectomy - Family History Family History: Reports;: Family Diabetes, Family Heart Disease, Family Hypertension - Social History Smoking Status: Never smoker Frequency of Alcohol Use: None Type of Drug Use: None Results - Labs CBC & BMP: 09/14/16 04:25 09/14/16 04:25 Lab Results: I have reviewed the past 24 hour labs - Diagnostic Findings Procedure: Chest x-ray: image reviewed by me (Pleural effusions new since admission suggest superimposed congestive heart failure) Quality Measures - Stroke Onset of Symptoms Date: 09/05/16 Onset of Symptoms Time: 15:30 Symptom Onset Unknown: No
--- NOTE | 2016-09-14 08:11 | XRay Report ---
XR chest 2V Indication: Shortness of breath. Comparison: Chest x-ray 09/12/2016 Technique: PA and lateral chest x-ray was performed. Findings: Heart size appears within normal limits. Previous sternotomy is demonstrated. Atherosclerotic calcification of the aortic knob is stable. Bilateral pleural effusions are suggested with little change in size since comparison. If any change, the right-sided pleural effusion has minimally increased in size. Bilateral lung parenchyma demonstrates perihilar interstitial stranding and scattered airspace opacities in the lung bases. Bones and soft tissues demonstrate no significant abnormalities. Impression: 1. There may be minimal interval increase in size of right-sided pleural effusion. Left-sided pleural effusion is stable. 2. Little overall change in appearance of the lung parenchyma. Differential considerations include infection as well as pulmonary edema. 09/14/2016 8:07 AM PROCEDURE INTERPRETED AT [facility] DEPARTMENT OF RADIOLOGY Final Report Signed by: Dr. Carlos Robert
[2016-09-14] MEDS: POTASSIUM CHLORIDE 20 MEQ TABLET PO SCH (08:39)
[2016-09-14] MEDS: PANTOPRAZOLE 40 MG TABLET PO SCH (08:39)
[2016-09-14] MEDS: ASPIRIN EC 81 MG TABLET PO SCH (08:40)
[2016-09-14] MEDS: METOPROLOL TARTRATE 25 MG TABLET PO SCH ×2 (08:40→21:10)
[2016-09-14] MEDS: NIACIN 500 MG TABLET PO SCH (08:40)
[2016-09-14] MEDS: GLIMEPIRIDE 4 MG TABLET PO SCH ×2 (08:40→16:26)
[2016-09-14] MEDS: INSULIN GLARGINE 100 UNIT/ML SUBCUT SCH (08:41)
[2016-09-14] MEDS: INSULIN LISPRO 100 UNIT/ML SUBCUT SCH ×4 (08:41→21:11)
[2016-09-14] MEDS: CITRIC ACID/SODIUM CITRATE 30 ML UDCUP PO SCH ×3 (08:42→21:11)
--- NOTE | 2016-09-14 09:35 | Ultrasound Report ---
History: Shortness of breath Date: 09/14/2016 Study: Bilateral lower extremity color-flow venous Doppler study Comparison exam: No previous Color Doppler, wave form analysis, and compression analysis of the deep veins of both lower extremities from the common femoral vein level through the popliteal vein level shows that the veins are readily compressible. There is no abnormal intraluminal material to suggest thrombus. Waveform analysis is unremarkable. Ultrasound images were captured and archived Impression: Normal bilateral lower extremity color flow venous Doppler study. No evidence of acute DVT PROCEDURE INTERPRETED AT [facility] DEPARTMENT OF RADIOLOGY Final Report Signed by: Dr. Nadja Muse
--- NOTE | 2016-09-14 09:35 | Cardiothoracic Progress Note ---
Cardiothoracic Subjective Interval history: Patient is an 86-year-old man who underwent bypass surgery about 15 years ago. He has done reasonably well until recently when his begun to develop increasing shortness of breath and chest discomfort. He was admitted for evaluation which included cardiac catheterization and echocardiogram. Echocardiogram showed severe aortic stenosis and cardiac catheterization root revealed patency of an internal mammary graft and circumflex graft although the circumflex graft has an ostial stenosis. The right coronary graft is occluded but the [place] right coronary does not have significant obstructive lesions. Patient needs aortic valve replacement which is made somewhat more risky by his age but also by mild degree of renal dysfunction with a creatinine ranging between 2 and 2.4. Risk is further increased somewhat by the presence of a patent internal mammary graft and we will try to localize this graft more clearly with CT angiogram early next week. I discussed the situation at length with the patient and he is willing to proceed when we feel it is appropriate. I discussed my recommendations with Dr. Fernandes and he will continue to help us with management. Exam (Progress Note) - Constitutional Vitals: Period Temp Pulse Resp BP Sys/[place] Pulse Ox Last 24 Hr 97.4 F-98.4 F 67-86 16-68 111-140/52-75 90-95 Result/EKG - Labs CBC & BMP: 09/14/16 04:25 09/14/16 04:25 Labs: Laboratory Results - last 24 hr 09/13/16 09/13/16 09/13/16 11:40 16:05 20:53 WBC RBC Hgb Hct MCV MCH MCHC RDW Plt Count MPV Neut % (Auto) Lymph % (Auto) [place] % (Auto) Eos % (Auto) Baso % (Auto) Neut # (Auto) Lymph # (Auto) [place] # (Auto) Eos # (Auto) Baso # (Auto) Total Counted Immature Gran % Nucleated RBC % Immature Gran # Segmented Neutrophils Lymphocytes Monocytes Nucleated RBCs # Platelet Estimate Hypochromasia Microcytosis ABG pH ABG pCO2 ABG pO2 ABG HCO3 ABG Total CO2 ABG O2 Saturation ABG Base Excess FiO2 Sodium Potassium Chloride Carbon Dioxide Anion Gap BUN Creatinine GFR Calculation BUN/Creatinine Ratio Glucose POC Glucose 279 H 352 H 208 H Calculated Osmolality Calcium Magnesium B-Natriuretic Peptide 09/14/16 09/14/16 09/14/16 04:25 04:25 04:25 WBC 16.0 H RBC 4.04 Hgb 12.1 L Hct 35.9 L MCV 88.9 MCH 30 MCHC 33.7 RDW 13.8 Plt Count 180 MPV 11.4 Neut % (Auto) 87.4 H Lymph % (Auto) 4.9 L [place] % (Auto) 6.4 Eos % (Auto) 0.0 Baso % (Auto) 0.2 Neut # (Auto) 14.0 H Lymph # (Auto) 0.8 L [place] # (Auto) 1.0 H Eos # (Auto) 0.0 Baso # (Auto) 0.0 Total Counted 100 Immature Gran % 1.1 Nucleated RBC % 0.0 Immature Gran # 0.17 Segmented Neutrophils 86 H Lymphocytes 9 L Monocytes 5 Nucleated RBCs # 0.00 Platelet Estimate Adequate Hypochromasia 1+ Microcytosis Slight ABG pH ABG pCO2 ABG pO2 ABG HCO3 ABG Total CO2 ABG O2 Saturation ABG Base Excess FiO2 Sodium 137 Potassium 5.1 Chloride 103 Carbon Dioxide 22 Anion Gap 17.1 H BUN 70 H D Creatinine 2.10 H GFR Calculation 30 BUN/Creatinine Ratio 33.00 H Glucose 264 H POC Glucose Calculated Osmolality 302.8 Calcium 8.9 Magnesium 2.7 H B-Natriuretic Peptide 421 H 09/14/16 09/14/16 06:00 07:41 WBC RBC Hgb Hct MCV MCH MCHC RDW Plt Count MPV Neut % (Auto) Lymph % (Auto) [place] % (Auto) Eos % (Auto) Baso % (Auto) Neut # (Auto) Lymph # (Auto) [place] # (Auto) Eos # (Auto) Baso # (Auto) Total Counted Immature Gran % Nucleated RBC % Immature Gran # Segmented Neutrophils Lymphocytes Monocytes Nucleated RBCs # Platelet Estimate Hypochromasia Microcytosis ABG pH 7.465 H ABG pCO2 28.8 L ABG pO2 64.1 L ABG HCO3 20.3 ABG Total CO2 21.1 L ABG O2 Saturation 93.0 L ABG Base Excess -2.4 FiO2 40.00 Sodium Potassium Chloride Carbon Dioxide Anion Gap BUN Creatinine GFR Calculation BUN/Creatinine Ratio Glucose POC Glucose 320 H Calculated Osmolality Calcium Magnesium B-Natriuretic Peptide Quality Measures - Stroke Onset of Symptoms Date: 09/05/16 Onset of Symptoms Time: 15:30 Symptom Onset Unknown: No
[2016-09-14] MEDS: IPRATROPIUM 500 MCG/2.5 ML NEB RESP TX SCH ×2 (13:09→19:32)
[2016-09-14] MEDS: amLODIPine 10 MG TABLET PO SCH (21:10)
[2016-09-14] MEDS: ATORVASTATIN 80 MG TABLET PO SCH (21:10)
[2016-09-15] MEDS: IPRATROPIUM 500 MCG/2.5 ML NEB RESP TX SCH ×4 (00:47→20:23)
[2016-09-15 04:56] LABS: Basophils % 0.1 % (0.0-0.8); Eosinophils % 0.1 % (0.00-10.9); Hematocrit 32.9 VOL% (42.0-52.0); Hemoglobin 11.1 GM/DL (14.0-18.0); Immature Granulocytes % 1.1 %; Immature Granulocytes Absolute 0.14 #; Lymphocytes # 0.7 10*3/uL (1.4-4.0); Lymphocytes % 4.9 % (21.2-54.2); Mean Corpuscular HGB Conc 33.7 GM/DL (32-36); Mean Corpuscular Hemoglobin 30 PG (27-34); Mean Corpuscular Volume 88.2 FL (87-102); Mean Platelet Volume 10.8 FL (9.6-12.0); Monocytes # 0.8 10*3/uL (0.11-0.8); Monocytes % 5.7 % (1.7-12.7); Neutrophils # 11.7 10*3/uL (1.4-7.4); Neutrophils % 88.1 % (38.7-73.9); Platelet Count 179 T/CUMM (130-400); Red Blood Count 3.73 MC/CUMM (3.8-5.5); Red Cell Distribution Width 13.7 % (9.3-17.3); White Blood Count 13.3 T/CUMM (4-12)
[2016-09-15 05:20] LABS: Hypochromasia 2+; Lymphocytes 4 % (20-55); Platelet Estimate Normal; Segmented Neutrophils 91 % (50-85); Total Cells Counted 100
[2016-09-15 05:30] LABS: Calcium 8.9 MG/DL (8.5-10.1); Magnesium 2.9 MG/DL (1.8-2.4); Osmolality,Calculated 304.7 MOS/KG (273-304); Potassium 4.7 MMOL/L (3.5-5.1)
[2016-09-15] MEDS: LEVOFLOXACIN INJ 250 MG in PREMIX 1 EACH IV SCH (06:31)
--- NOTE | 2016-09-15 06:39 | XRay Report ---
XR chest 1V portable Indication: CHF Comparison: Chest x-ray 09/14/2016 Technique: Portable AP chest was performed. Findings: The cardiomediastinal silhouette is stable compared to the previous study. Atherosclerotic calcification of the aortic knob and sternal wires appear stable. Right-sided pleural effusion is again demonstrated. There is slightly more convexity of the medial margin and loculation of the pleural fluid is suggested. Minimal pleural thickening of the left lateral pleural surface is suggested. The lung parenchyma demonstrates little change in comparison with linear interstitial markings scattered airspace opacities present. Bones and soft tissues appear stable. Impression: 1. Right-sided pleural effusion has some increased convexity along the medial boundary and loculation is suggested. 2. Pleural thickening versus small mild pleural fluid on the left appears stable. 3. Lung parenchyma demonstrates little change from comparison. A component of chronic lung disease is not excluded. Other considerations include pulmonary edema. 09/15/2016 6:34 AM PROCEDURE INTERPRETED AT [facility] DEPARTMENT OF RADIOLOGY Final Report Signed by: Dr. Carlos Robert
--- NOTE | 2016-09-15 07:36 | Pulmonology Progress Note ---
Pulmonary - PN: Subj Interval history: This 86-year-old white male has congestive heart failure due to aortic stenosis. Also has atherosclerotic heart disease with previous coronary bypass surgery. Needs to have his IV aortic valve replaced. He has a right pleural effusion. His chest x-ray looks a little bit better today as far as the pulmonary edema is concerned. However we gave him Lasix yesterday and his creatinine has risen a little more. I think we would do best to get the right pleural fluid drained in preparation for surgery. Will ask interventional radiology to do this since it appears to be loculated laterally and would be safely done with ultrasound guidance. Patient is not sleeping well. Should tolerate some Ativan at bedtime. Quite anxious. I should note that the reason he has pleural fluid on the right and not the left is that he has had a previous left decortication. Exam (Progress Note) - Constitutional Vitals: Period Temp Pulse Resp BP Sys/[place] Pulse Ox Last 24 Hr 97.1 F-98.8 F 69-88 18-22 118-132/59-65 92-100 Exam: Patient's alert sitting on the side of the bed somewhat anxious. Vital signs normal. Wearing facemask oxygen. Pupils react to light. Throat clear. Neck supple no bruits. Chest shows a few basilar crackles and some dullness at the right base. Heart normal rate rhythm grade 2/6 systolic murmur at right base. Abdomen soft nontender no masses. Bowel sounds present. Extremities no clubbing or cyanosis. Trace of edema. Calves nontender. Results - Labs CBC & BMP: 09/15/16 04:46 09/15/16 04:46 Lab Results: I have reviewed the past 24 hour labs - Diagnostic Findings Procedure: Chest x-ray: image reviewed by me (Right pleural effusion located primarily laterally and likely loculated. Interstitial edema is improved today. ) Assessment and Plan (1) Syncope Status: Acute Assessment and plan: Syncope likely due to cardiac causes related to his aortic stenosis. 09/15/16 likely due to his aortic stenosis. Current Visit: Yes (2) Chronic kidney disease Status: Chronic Assessment and plan: Creatinine is 2.1. He has had some renal insufficiency for quite some time related to vascular disease and diabetes. At present I think he is ahead on fluid. I will bump him with Lasix. 09/15/16 creatinine up to 2.3 after a dose of Lasix. Afraid to diurese any more vigorously at present. Asking interventional radiology to drain the loculated right effusion. This should help getting prepped for aortic valve replacement. Current Visit: Yes (3) Coronary artery disease Status: Chronic Assessment and plan: Previous coronary bypass surgery with additional findings at catheterization this admission. Current Visit: Yes Qualifiers: Coronary Disease-Associated Artery/Lesion type: [place] artery [place] vs. transplanted heart: [place] heart Associated angina: without angina Qualified Code(s): I25.10 - Atherosclerotic heart disease of [place] coronary artery without angina pectoris (4) Pulmonary hypertension Status: Chronic Assessment and plan: This was not quantified on the echo but is likely to be secondary to his left heart disease with aortic stenosis. 09/15/16 this should be due to his aortic stenosis and congestive heart failure. Current Visit: Yes (5) Severe aortic stenosis Status: Chronic Assessment and plan: Has severe aortic stenosis by echo and catheterization. Likely the possible cause of his congestive heart failure and pulmonary hypertension. 09/15/16 hopefully can have surgery when we get him tuned up. Current Visit: Yes (6) Diabetes mellitus Status: Chronic Assessment and plan: Has some hyperglycemia. Adding sliding scale. 09/15/16 glucoses in the 140-200 range. Current Visit: Yes Qualifiers: Diabetes mellitus type: type 2 (7) Acute bronchitis Status: Acute Assessment and plan: Based on the change in sputum color and elevated white count 16,000 think is reasonable to cover him with antibiotics for this. Will use Atrovent for bronchodilators. 09/15/16 empirically on antibiotics and Atrovent. I think his main problem respiratory escobar is congestive heart failure related to his aortic stenosis. Would not delay surgery for bronchitis in this situation Current Visit: Yes
[2016-09-15] MEDS: INSULIN GLARGINE 100 UNIT/ML SUBCUT SCH (08:22)
[2016-09-15] MEDS: NIACIN 500 MG TABLET PO SCH (08:22)
[2016-09-15] MEDS: INSULIN LISPRO 100 UNIT/ML SUBCUT SCH ×4 (08:22→20:33)
[2016-09-15] MEDS: PANTOPRAZOLE 40 MG TABLET PO SCH (08:23)
[2016-09-15] MEDS: POTASSIUM CHLORIDE 20 MEQ TABLET PO SCH (08:23)
[2016-09-15] MEDS: GLIMEPIRIDE 4 MG TABLET PO SCH ×2 (08:23→16:26)
[2016-09-15] MEDS: ASPIRIN EC 81 MG TABLET PO SCH (08:23)
[2016-09-15] MEDS: METOPROLOL TARTRATE 25 MG TABLET PO SCH ×2 (08:23→20:33)
[2016-09-15] MEDS: CITRIC ACID/SODIUM CITRATE 30 ML UDCUP PO SCH ×3 (08:24→20:33)
[2016-09-15] MEDS: cefTRIAXone 1,000 MG in SODIUM CHLORIDE 0.9% 100 ML IV SCH (08:25)
--- NOTE | 2016-09-15 11:16 | Cardiology Progress Note ---
<Rosie Hsu E - Last Filed: 09/15/16 10:58> Assessment and Plan - Time spent with patient Time spent with patient: Less than 30 minutes (1) Severe aortic stenosis Status: Chronic Assessment and plan: SEE PLAN OF CARE LISTED BELOW. Current Visit: Yes (2) Syncope Status: Acute Assessment and plan: SEE PLAN OF CARE LISTED BELOW Current Visit: Yes (3) Atrial flutter by electrocardiogram Status: Acute Assessment and plan: SEE PLAN OF CARE LISTED BELOW Current Visit: Yes (4) Bradycardia Status: Resolved Assessment and plan: SEE PLAN OF CARE LISTED BELOW Current Visit: Yes (5) Coronary artery disease Status: Chronic Assessment and plan: SEE PLAN OF CARE LISTED BELOW Current Visit: Yes Qualifiers: Coronary Disease-Associated Artery/Lesion type: blackfeet artery [place] vs. transplanted heart: blackfeet heart Associated angina: without angina Qualified Code(s): I25.10 - Atherosclerotic heart disease of blackfeet coronary artery without angina pectoris (6) Hypertension Status: Chronic Assessment and plan: SEE PLAN OF CARE LISTED BELOW Current Visit: Yes (7) Hyperlipidemia Status: Chronic Assessment and plan: SEE PLAN OF CARE LISTED BELOW Current Visit: Yes (8) Diabetes mellitus Status: Chronic Assessment and plan: SEE PLAN OF CARE LISTED BELOW Current Visit: Yes Qualifiers: Diabetes mellitus type: type 2 (9) Acute on chronic renal failure Status: Acute Assessment and plan: SEE PLAN OF CARE LISTED BELOW Current Visit: Yes (10) Leukocytosis Status: Resolved Assessment and plan: SEE PLAN OF CARE LISTED BELOW Current Visit: Yes (11) Epistaxis Status: Acute Assessment and plan: SEE PLAN OF CARE LISTED BELOW Current Visit: Yes Cardiology - PN: Subj Interval history: 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 ALEXANDER Mr. Frazier is a 86 year old male with a history of coronary artery disease, hypertension, hyperlipidemia, type 2 diabetes mellitus, chronic kidney disease. He is status post coronary artery bypass grafting August 06 2001 with SINGH to the LAD and vein graft to the circumflex marginal and right coronary arteries. He is status post right carotid endarterectomy July 03, 2002. He was admitted to the hospital after an episode of syncope and prolonged weakness. He was initially in atrial flutter, bradycardia, junctional rhythm, no atrial flutter, with normal conduction. He was on no zackery blocking agents. An echocardiogram was performed with showed severe aortic stenosis with preserved ejection fraction. He had some trivial troponin elevation in the setting of an elevated creatinine. Urine toxicology was negative. 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 Mr. Frazier has had trouble with dyspnea and decreased O2 saturations past couple of days. Pulmonology has seen him in consultation and due to a right pleural effusion, he underwent ultrasound-guided thoracentesis today where he was drained of 800 cc of straw-colored, blood-tinged fluid. Mr. Frazier reports he is feeling much better after this procedure. Overall Mr. Frazier has many disease processes that are interacting and making his clinical course difficult. He has pulmonary hypertension, hypoxemia, coronary artery disease, renal insufficiency, and valvular heart disease. This in the background of his advanced age make his situation tenuous. ASSESSMENT/PLAN: 1. SEVERE AORTIC STENOSIS - Dr. Mehta has been consulted and tentatively plans perform AVR next week. Echocardiogram showed severe aortic stenosis and cardiac catheterization root revealed patency of an internal mammary graft and circumflex graft although the circumflex graft has an ostial stenosis. The right coronary graft is occluded but the blackfeet right coronary does not have significant obstructive lesions. The procedure is made somewhat more risky by his age, renal dysfunction, and presence of a patent internal mammary graft. CV Surgery plans to try to localize this graft more clearly CT angiogram early next week. 2. SYNCOPE - Carotid doppler ultrasound reveals right ICA with 50-69% stenosis. CT of the brain was negative. This could have been related to bradycardia or his aortic stenosis. Neurology has seen him in consultation and does not feel he has suffered a TIA at this time. 3. ATRIAL FLUTTER - CHADSVASC 5. Anticoagulation has been held pending surgery next week. He has been started on a beta demarco and has tolerated this well. 4. BRADYCARDIA - His clonidine was discontinued and bradycardia has improved. His rates have stayed fairly consistent in the 70s-80s, now occasionally up to 90s. His rate is currently acceptable, would allow his heart rate to run in the 90-110 range. 5. CORONARY ARTERY DISEASE - He is status post coronary artery bypass grafting August 06 2001 with SINGH to the LAD and vein graft to the circumflex marginal and right coronary arteries. Cardiac catheterization on 09/13/2016 revealed severe blackfeet three-vessel and ostial left main coronary artery disease with 2 of 3 bypass grafts patent. There is an ostial pinch in the saphenous vein graft to the obtuse marginal branch. The right coronary artery graft is occluded but the right coronary artery does not have any significant high-grade disease at this time. 6. HYPERTENSION -this is currently well controlled on the current therapy. Will continue to monitor and adjust accordingly. 7. HYPERLIPIDEMIA - Continue lipid lowering agent. FLP revealed triglycerides 98 , cholesterol 127, LDL 60, HDL 54. 8. DIABETES - He is on accuchecks with sliding scale insulin. 9. ACUTE ON CHRONIC RENAL FAILURE - Will continue to monitor BMP. Risk for perioperative complications was discussed with the patient. Creatinine is up to 2.3. 10. LEUKOCYTOSIS - He has been afebrile. He is receiving empiric treatment with IV antibiotics. Preliminary report sputum culture resulted gram-positive cocci , awaiting sensitivity. Blood cultures negative. His Levaquin dose was adjusted for his renal insufficiency. White blood cell count is down to 13.3 today. 11. EPISTAXIS - Required packing by ENT last Sunday. He has had no further episodes since. H&H stable. We are currently continuing aspirin and Eliquis. He has been coughing up some blood-tinged dark brown almost kavita appearing sputum and has had an increase in his white count. This may be residual left over from potential posterior nasopharyngeal bleeding. Exam (Progress Note) - Constitutional Vitals: Period Temp Pulse Resp BP Sys/Hurtado Pulse Ox Last 24 Hr 97.1 F-98.8 F 69-88 18-24 112-132/40-79 92-100 Exam: General appearance: Pleasant and cooperative. Normal weight, no acute distress. - Head Head exam: Present: normal inspection, normocephalic, atraumatic. Absent: hematoma, laceration - Eye Eye exam: Present: EOMI. Absent: conjunctival injection, nystagmus, periorbital swelling, scleral icterus, laceration to eyelids Pupils: Present: PERRL. Absent: constricted, dilated, fixed, irregular, unequal - ENT ENT exam: Present: normal exam, normal external ear exam - Neck Neck exam: Present: normal inspection. Absent: lymphadenopathy, meningismus, tenderness, thyromegaly - Respiratory Respiratory exam: Present: Expiratory wheezes and bibasilar crackles noted. Absent: accessory muscle use, chest wall tenderness - Cardiovascular Cardiovascular exam: Present: irregular rate and rhythm, right carotid bruit, systolic murmur. Absent: gallop, JVD, rubs - GI/Abdominal GI/Abdominal exam: Present: normal bowel sounds, soft. Absent: distended, firm , guarding, hernia, mass, tenderness, rebound. - Extremities Exam Extremities exam: Present: normal inspection, normal capillary refill. Upper extremity pulses 2+. Lower extremity pulses 2+. Absent: calf tenderness, edema -Musculoskeletal Exam Musculoskeletal: Present: No Fluid Collection, No Pain, Normal Range of Motion - Back Exam Back exam: Present: normal inspection. Absent: muscle spasm, vertebral tenderness - Neurological Exam Neurological exam: Present: alert, oriented X3, grossly intact without resting or essential tremor - Psychiatric Psychiatric exam: Present: normal affect, normal mood - Skin Skin exam: Present: normal color, warm, dry, intact. Absent: cyanosis, diaphoretic, rash, urticaria Result/EKG - Labs CBC & BMP: 09/15/16 04:46 09/15/16 04:46 Lab Results: I have reviewed the past 24 hour labs Labs: Laboratory Results - last 24 hr 09/14/16 09/14/16 09/14/16 11:47 15:22 21:08 WBC RBC Hgb Hct MCV MCH MCHC RDW Plt Count MPV Neut % (Auto) Lymph % (Auto) Rabun % (Auto) Eos % (Auto) Baso % (Auto) Neut # (Auto) Lymph # (Auto) Rabun # (Auto) Eos # (Auto) Baso # (Auto) Total Counted Immature Gran % Nucleated RBC % Immature Gran # Segmented Neutrophils Lymphocytes Monocytes Nucleated RBCs # Platelet Estimate Hypochromasia Sodium Potassium Chloride Carbon Dioxide Anion Gap BUN Creatinine GFR Calculation BUN/Creatinine Ratio Glucose POC Glucose 252 H 234 H 139 H Calculated Osmolality Calcium Magnesium 09/15/16 09/15/16 09/15/16 04:46 04:46 07:48 WBC 13.3 H RBC 3.73 L Hgb 11.1 L Hct 32.9 L MCV 88.2 MCH 30 MCHC 33.7 RDW 13.7 Plt Count 179 MPV 10.8 Neut % (Auto) 88.1 H Lymph % (Auto) 4.9 L Rabun % (Auto) 5.7 Eos % (Auto) 0.1 Baso % (Auto) 0.1 Neut # (Auto) 11.7 H Lymph # (Auto) 0.7 L Rabun # (Auto) 0.8 Eos # (Auto) 0.0 Baso # (Auto) 0.0 Total Counted 100 Immature Gran % 1.1 Nucleated RBC % 0.0 Immature Gran # 0.14 Segmented Neutrophils 91 H Lymphocytes 4 L Monocytes 5 Nucleated RBCs # 0.00 Platelet Estimate Normal Hypochromasia 2+ Sodium 138 Potassium 4.7 Chloride 102 Carbon Dioxide 23 Anion Gap 17.7 H BUN 78 H Creatinine 2.30 H GFR Calculation 27 BUN/Creatinine Ratio 33.00 H Glucose 230 H POC Glucose 254 H Calculated Osmolality 304.7 H Calcium 8.9 Magnesium 2.9 H - EKG EKG results: interpreted by me (Atrial flutter) Quality Measures - Stroke Onset of Symptoms Date: 09/05/16 Onset of Symptoms Time: 15:30 Symptom Onset Unknown: No <PremaFloyd - Last Filed: 09/15/16 12:45> Assessment and Plan (1) Acute on chronic renal failure Status: Acute Assessment and plan: Creatinine is back almost to where it was on admission. Continue to follow. Current Visit: Yes (2) Atrial flutter by electrocardiogram Status: Acute Current Visit: Yes (3) Bradycardia Status: Resolved Current Visit: Yes (4) Epistaxis Status: Acute Current Visit: Yes (5) Hypertension Status: Acute Current Visit: Yes Qualifiers: Hypertension type: essential hypertension Qualified Code(s): I10 - Essential (primary) hypertension (6) Pulmonary hypertension Status: Chronic Current Visit: Yes (7) Severe aortic stenosis Status: Chronic Assessment and plan: Possible AVR Current Visit: Yes (8) TIA (transient ischemic attack) Status: Acute Current Visit: Yes (9) Unsteady gait Status: Chronic Current Visit: Yes (10) Coronary artery disease Status: Chronic Assessment and plan: Adequately revascularized except for the ostial vein graft to the first obtuse marginal. I discussed with Dr. Mehta about options of redo surgical of treatment of this stenosis versus PCI post AVR Current Visit: Yes Qualifiers: Coronary Disease-Associated Artery/Lesion type: blackfeet artery [place] vs. transplanted heart: blackfeet heart Associated angina: without angina Qualified Code(s): I25.10 - Atherosclerotic heart disease of blackfeet coronary artery without angina pectoris (11) Diabetes mellitus Status: Chronic Current Visit: Yes Qualifiers: Diabetes mellitus type: type 2 (12) Hypoxemia Status: Acute Current Visit: Yes Cardiology - PN: Subj Interval history: Discussed with Ms. Hsu. She saw the patient earlier in the day. I came to see him and he was gone for his thoracentesis. The patient had 800 cc of straw- colored fluid removed from his right hemithorax. He is subjectively better he still on Ventimask. Dr. Lawson's help is greatly appreciated. I discussed with Dr. Janine Mehta thinks the patient is a reasonable candidate for aortic valve replacement and thinks that it will help him significantly. He is requested that we find better delineation of the actual root of the KAITY graft. This graft is large and very generous is very important graft for the patient's myocardial perfusion and it is at high risk of getting damage during the operative procedure. Dr. Aleman requested that we get a CT angiogram of this vessel at some point if his creatinine will allow. The patient is significantly better after his thoracentesis. That is on the thoracentesis fluid are pending Exam (Progress Note) - Constitutional Vitals: Period Temp Pulse Resp BP Sys/Hurtado Pulse Ox Last 24 Hr 97.1 F-97.9 F 66-88 18-24 109-132/40-79 92-100 Exam: Patient has a irregular rhythm and murmur of aortic stenosis as previously described he has a blunted but present second heart sound is single. He has significant better air movement on the right now than he did before. He continues to have some expiratory wheezes. He has no dullness to percussion. He has no egophony. Result/EKG - Labs CBC & BMP: 09/15/16 04:46 09/15/16 04:46 Labs: Laboratory Results - last 24 hr 09/14/16 09/14/16 09/15/16 15:22 21:08 04:46 WBC 13.3 H RBC 3.73 L Hgb 11.1 L Hct 32.9 L MCV 88.2 MCH 30 MCHC 33.7 RDW 13.7 Plt Count 179 MPV 10.8 Neut % (Auto) 88.1 H Lymph % (Auto) 4.9 L Rabun % (Auto) 5.7 Eos % (Auto) 0.1 Baso % (Auto) 0.1 Neut # (Auto) 11.7 H Lymph # (Auto) 0.7 L Rabun # (Auto) 0.8 Eos # (Auto) 0.0 Baso # (Auto) 0.0 Total Counted 100 Immature Gran % 1.1 Nucleated RBC % 0.0 Immature Gran # 0.14 Segmented Neutrophils 91 H Lymphocytes 4 L Monocytes 5 Nucleated RBCs # 0.00 Platelet Estimate Normal Hypochromasia 2+ Sodium Potassium Chloride Carbon Dioxide Anion Gap BUN Creatinine GFR Calculation BUN/Creatinine Ratio Glucose POC Glucose 234 H 139 H Calculated Osmolality Calcium Magnesium Fluid Total Protein Fluid LDH Pleural WBC Pleural RBC Pleural Tot Cell Ct Pleural Neutrophils Pleural Lymphocytes Pleural Monocytes Pleural Diff Comment Pleural Glucose 09/15/16 09/15/16 09/15/16 04:46 07:48 10:00 WBC RBC Hgb Hct MCV MCH MCHC RDW Plt Count MPV Neut % (Auto) Lymph % (Auto) Rab[place] % (Auto) Eos % (Auto) Baso % (Auto) Neut # (Auto) Lymph # (Auto) Rab[place] # (Auto) Eos # (Auto) Baso # (Auto) Total Counted Immature Gran % Nucleated RBC % Immature Gran # Segmented Neutrophils Lymphocytes Monocytes Nucleated RBCs # Platelet Estimate Hypochromasia Sodium 138 Potassium 4.7 Chloride 102 Carbon Dioxide 23 Anion Gap 17.7 H BUN 78 H Creatinine 2.30 H GFR Calculation 27 BUN/Creatinine Ratio 33.00 H Glucose 230 H POC Glucose 254 H Calculated Osmolality 304.7 H Calcium 8.9 Magnesium 2.9 H Fluid Total Protein Fluid LDH Pleural WBC 425 Pleural RBC [address] 100 Pleural Neutrophils 51 Pleural Lymphocytes 39 Pleural Monocytes 10 Pleural Diff Comment Pleural Glucose 09/15/16 09/15/16 11:16 11:44 WBC RBC Hgb Hct MCV MCH MCHC RDW Plt Count MPV Neut % (Auto) Lymph % (Auto) Rab[place] % (Auto) Eos % (Auto) Baso % (Auto) Neut # (Auto) Lymph # (Auto) Rab[place] # (Auto) Eos # (Auto) Baso # (Auto) Total Counted Immature Gran % Nucleated RBC % Immature Gran # Segmented Neutrophils Lymphocytes Monocytes Nucleated RBCs # Platelet Estimate Hypochromasia Sodium Potassium Chloride Carbon Dioxide Anion Gap BUN Creatinine GFR Calculation BUN/Creatinine Ratio Glucose POC Glucose 194 H Calculated Osmolality Calcium Magnesium Fluid Total Protein < 2.0 Fluid LDH 78 Pleural WBC Pleural RBC Pleural Tot Cell Ct Pleural Neutrophils Pleural Lymphocytes Pleural Monocytes Pleural Diff Comment Pleural Glucose 229
--- NOTE | 2016-09-15 11:17 | XRay Report ---
History: Pleural effusion. Patient status post thoracentesis by Dr. Muse Date: 09/15/2016 at 10:26 AM Study: Chest x-ray post procedure Comparison exam: 09/15/2016 at 6:19 There is no evidence of a pneumothorax following thoracentesis. The right-sided pleural effusion has markedly decreased in size, with only mild residual pleural disease in the lateral right hemithorax. The left pleural disease is unchanged. The bibasilar atelectasis/infiltrate is stable. The cardiomediastinal silhouette is grossly unchanged. Otherwise stable. Impression: No evidence of a pneumothorax following right thoracentesis PROCEDURE INTERPRETED AT [facility] DEPARTMENT OF RADIOLOGY Final Report Signed by: Dr. Nadja Muse
--- NOTE | 2016-09-15 11:19 | Post Interventional Procedure ---
Pre-op diagnosis: Right pleural effusion Post-op diagnosis: same Procedure: Ultrasound-guided right thoracentesis Radiologist: Nadja Muse Anesthesia: local Specimens: other (fluid sample sent to lab) Estimated blood loss: minimal (less than 3 ml) Complications: none Condition: stable Description/Findings: Informed consent was obtained. A formal timeout was performed. A right pleural effusion was identified with ultrasound. The dorsal right chest was prepped and draped in sterile fashion. Under sonographic guidance, a 6 [place] pigtail catheter was advanced into the effusion using trocar technique by this radiologist. A captured sonographic image documents needle position. The needle was removed. Through the catheter, we obtained a total of 800 cc of straw-colored, blood-tinged fluid. The catheter was removed. A bandage was placed at the puncture site. The patient tolerated the procedure well. Chest radiograph shows no evidence of pneumothorax. Impression: Ultrasound-guided thoracentesis Assessment and Plan - Time spent with patient Time spent with patient: Less than 30 minutes
[2016-09-15 11:37] LABS: Lymphocytes,Pleural Fluid 39 %; Monocytes,Pleural Fluid 10 %; Neutrophils,Pleural Fluid 51 %
[2016-09-15 11:38] LABS: RBC,Pleural Fluid 13953 T/CUMM
[2016-09-15 11:47] LABS: Glucose,Pleural Fluid 229 MG/DL; LDH,Body Fluid 78 U/L; Total Protein,Body Fluid < 2.0 G/DL
--- NOTE | 2016-09-15 12:44 | Physician Query Form ---
CLICK EDIT DOCUMENT TO SELECT QUERY ANSWER --> OK --> SIGN Rhoda Robert RN, CCDS Certified Clinical Theoretical Physicist W) [phone] (f) [phone] [email or web address] PROVIDERS: Make your selection(s) from the choices in EACH section by typing an "x" and enter comments in the comment section. Please use your independent medical judgment in providing your response. This request does not imply that any particular answer is desired or expected. CLINICAL INDICATORS: (Providers should not edit this section) Patient was admitted with Dizziness, found to have "aortic stenosis", CHF is mentioned, on the 1st: "acutely more short of breath and his O2 saturations were decreasing", "just severely dyspneic", hypoxemia, on the 1st patient was placed on 12 liters per Venturi Mask. If possible, please further clarify the type and acuity of respiratory diagnosis : ACUITY: (x ) Acute ( ) Chronic ( ) Acute on Chronic TYPE: ( x) Respiratory failure with hypoxia ( ) Respiratory failure with hypercapnia ( ) Respiratory Arrest ( ) Postprocedural/postoperative respiratory failure ( ) Respiratory Insufficiency ( ) ARDS (Adult/Acute Respiratory Distress Syndrome) ( ) Other, please specify: ( ) Clinically unable to determine Recognized criteria for respiratory failure PH <7.35 or >7.45 PO2 <60 PCO2 >50 RR >24 O2 Sat <90% on RA or <95% on O2 Use of accessory muscles Unable to speak in full sentences Intubation is not required COMMENTS: PLEASE ALSO DOCUMENT RESPONSE IN PROGRESS NOTES AND/OR DISCHARGE SUMMARY Use of terms such as suspected, likely, or probable (associated with a specific diagnosis that is being evaluated, monitored, or treated as if it exists) are acceptable and can be restated in the discharge summary if not ruled out. MTDD
--- NOTE | 2016-09-15 12:46 | Physician Query Form ---
CLICK EDIT DOCUMENT TO SELECT QUERY ANSWER --> OK --> SIGN Rhoda Robert RN, CCDS Certified Clinical Infantry Weapons Officer W) [phone] (f) [phone] [email or web address] PROVIDERS: Make your selection(s) from the choices in EACH section by typing an "x" and enter comments in the comment section. Please use your independent medical judgment in providing your response. This request does not imply that any particular answer is desired or expected. CLINICAL INDICATORS: (Providers should not edit this section) Patient was admitted with Dizziness, found to have "aortic stenosis", CHF is mentioned, BNP of 589# on the and the patient was treated with Lasix. --- On the (Pleural effusions new since admission suggest superimposed congestive heart failure) Please provide further specificity regarding CHF. ACUITY: (x ) Acute ( ) Chronic ( ) Acute on Chronic ( ) Clinically unable to determine TYPE: ( ) Systolic (HFrEF - heart failure with reduced systolic function/EF) ( ) Diastolic (HFpEF - heart failure with preserved systolic function/EF) ( ) Combined Systolic/Diastolic (x ) Other, please specify: Valvular heart disease, aortic stenosis, resulting in systolic dysfunction. ( ) Clinically unable to determine ( ) The patient does NOT have CHF COMMENTS: PLEASE ALSO DOCUMENT RESPONSE IN PROGRESS NOTES AND/OR DISCHARGE SUMMARY Use of terms such as suspected, likely, or probable (associated with a specific diagnosis that is being evaluated, monitored, or treated as if it exists) are acceptable and can be restated in the discharge summary if not ruled out. MTDD
[2016-09-15] MEDS: ATORVASTATIN 80 MG TABLET PO SCH (20:33)
[2016-09-15] MEDS: amLODIPine 10 MG TABLET PO SCH (20:34)
[2016-09-15] MEDS ORDERED: LORazepam 1 MG TABLET PO SCH (21:00)
[2016-09-16 02:29] LABS: Basophils % 0.2 % (0.0-0.8); Eosinophils % 0.2 % (0.00-10.9); Hematocrit 34.3 VOL% (42.0-52.0); Hemoglobin 11.6 GM/DL (14.0-18.0); Immature Granulocytes % 0.8 %; Immature Granulocytes Absolute 0.09 #; Lymphocytes # 0.5 10*3/uL (1.4-4.0); Lymphocytes % 4.2 % (21.2-54.2); Mean Corpuscular HGB Conc 33.8 GM/DL (32-36); Mean Corpuscular Hemoglobin 30 PG (27-34); Mean Corpuscular Volume 89.1 FL (87-102); Mean Platelet Volume 10.9 FL (9.6-12.0); Monocytes # 0.7 10*3/uL (0.11-0.8); Neutrophils # 10.5 10*3/uL (1.4-7.4); Neutrophils % 88.6 % (38.7-73.9); Platelet Count 174 T/CUMM (130-400); Red Blood Count 3.85 MC/CUMM (3.8-5.5); Red Cell Distribution Width 13.4 % (9.3-17.3); White Blood Count 11.8 T/CUMM (4-12)
[2016-09-16 03:02] LABS: Calcium 9.2 MG/DL (8.5-10.1); Magnesium 3.1 MG/DL (1.8-2.4); Osmolality,Calculated 307.7 MOS/KG (273-304); Potassium 5.1 MMOL/L (3.5-5.1)
[2016-09-16 03:07] LABS: Lymphocytes 4 % (20-55); Segmented Neutrophils 95 % (50-85)
[2016-09-16 03:09] LABS: Platelet Estimate Normal; Total Cells Counted 100
[2016-09-16] MEDS: IPRATROPIUM 500 MCG/2.5 ML NEB RESP TX SCH ×4 (04:20→20:22)
[2016-09-16] MEDS: CITRIC ACID/SODIUM CITRATE 30 ML UDCUP PO SCH ×3 (09:09→21:35)
[2016-09-16] MEDS: INSULIN GLARGINE 100 UNIT/ML SUBCUT SCH (09:10)
[2016-09-16] MEDS: NIACIN 500 MG TABLET PO SCH (09:10)
[2016-09-16] MEDS: INSULIN LISPRO 100 UNIT/ML SUBCUT SCH ×4 (09:10→21:38)
[2016-09-16] MEDS: GLIMEPIRIDE 4 MG TABLET PO SCH ×2 (09:11→16:27)
[2016-09-16] MEDS: METOPROLOL TARTRATE 25 MG TABLET PO SCH ×2 (09:11→21:35)
[2016-09-16] MEDS: POTASSIUM CHLORIDE 20 MEQ TABLET PO SCH (09:11)
[2016-09-16] MEDS: ASPIRIN EC 81 MG TABLET PO SCH (09:11)
[2016-09-16] MEDS: PANTOPRAZOLE 40 MG TABLET PO SCH (09:11)
[2016-09-16] MEDS: cefTRIAXone 1,000 MG in SODIUM CHLORIDE 0.9% 100 ML IV SCH (09:13)
--- NOTE | 2016-09-16 09:41 | Cardiothoracic Progress Note ---
Cardiothoracic Subjective Interval history: Patient is breathing more comfortably following her thoracentesis yesterday. We will continue to follow his progress and plan for CT angiogram of the chest probably on Sunday. Exam (Progress Note) - Constitutional Vitals: Period Temp Pulse Resp BP Sys/Hurtado Pulse Ox Last 24 Hr 97.2 F-98.7 F 66-84 16-26 108-131/40-64 83-99 Result/EKG - Labs CBC & BMP: 09/16/16 02:04 09/16/16 02:04 Labs: Laboratory Results - last 24 hr 09/15/16 09/15/16 09/15/16 10:00 11:16 11:44 WBC RBC Hgb Hct MCV MCH MCHC RDW Plt Count MPV Neut % (Auto) Lymph % (Auto) Jones % (Auto) Eos % (Auto) Baso % (Auto) Neut # (Auto) Lymph # (Auto) Jones # (Auto) Eos # (Auto) Baso # (Auto) Total Counted Immature Gran % Nucleated RBC % Immature Gran # Segmented Neutrophils Lymphocytes Monocytes Nucleated RBCs # Platelet Estimate Sodium Potassium Chloride Carbon Dioxide Anion Gap BUN Creatinine GFR Calculation BUN/Creatinine Ratio Glucose POC Glucose 194 H Calculated Osmolality Calcium Magnesium Fluid Total Protein < 2.0 Fluid LDH 78 Pleural WBC 425 Pleural RBC [address] 100 Pleural Neutrophils 51 Pleural Lymphocytes 39 Pleural Monocytes 10 Pleural Diff Comment Pleural Glucose 229 09/15/16 09/15/16 09/16/16 15:07 20:26 02:04 WBC 11.8 RBC 3.85 Hgb 11.6 L Hct 34.3 L MCV 89.1 MCH 30 MCHC 33.8 RDW 13.4 Plt Count 174 MPV 10.9 Neut % (Auto) 88.6 H Lymph % (Auto) 4.2 L Jones % (Auto) 6.0 Eos % (Auto) 0.2 Baso % (Auto) 0.2 Neut # (Auto) 10.5 H Lymph # (Auto) 0.5 L Jones # (Auto) 0.7 Eos # (Auto) 0.0 Baso # (Auto) 0.0 Total Counted 100 Immature Gran % 0.8 Nucleated RBC % 0.0 Immature Gran # 0.09 Segmented Neutrophils 95 H Lymphocytes 4 L Monocytes 1 L Nucleated RBCs # 0.00 Platelet Estimate Normal Sodium Potassium Chloride Carbon Dioxide Anion Gap BUN Creatinine GFR Calculation BUN/Creatinine Ratio Glucose POC Glucose 217 H 225 H Calculated Osmolality Calcium Magnesium Fluid Total Protein Fluid LDH Pleural WBC Pleural RBC Pleural Tot Cell Ct Pleural Neutrophils Pleural Lymphocytes Pleural Monocytes Pleural Diff Comment Pleural Glucose 09/16/16 09/16/16 02:04 07:47 WBC RBC Hgb Hct MCV MCH MCHC RDW Plt Count MPV Neut % (Auto) Lymph % (Auto) Jones % (Auto) Eos % (Auto) Baso % (Auto) Neut # (Auto) Lymph # (Auto) Jones # (Auto) Eos # (Auto) Baso # (Auto) Total Counted Immature Gran % Nucleated RBC % Immature Gran # Segmented Neutrophils Lymphocytes Monocytes Nucleated RBCs # Platelet Estimate Sodium 138 Potassium 5.1 Chloride 102 Carbon Dioxide 25 Anion Gap 16.1 H BUN 85 H Creatinine 2.40 H GFR Calculation 25 BUN/Creatinine Ratio 35.00 H Glucose 226 H POC Glucose 270 H Calculated Osmolality 307.7 H Calcium 9.2 Magnesium 3.1 H Fluid Total Protein Fluid LDH Pleural WBC Pleural RBC Pleural Tot Cell Ct Pleural Neutrophils Pleural Lymphocytes Pleural Monocytes Pleural Diff Comment Pleural Glucose Quality Measures - Stroke Onset of Symptoms Date: 09/05/16 Onset of Symptoms Time: 15:30 Symptom Onset Unknown: No
--- NOTE | 2016-09-16 10:57 | Cardiology Progress Note ---
Assessment and Plan (1) Acute on chronic renal failure Status: Acute Assessment and plan: Creatinine is back almost to where it was on admission. Continue to follow. Current Visit: Yes (2) Atrial flutter by electrocardiogram Status: Acute Assessment and plan: better Current Visit: Yes (3) Bradycardia Status: Resolved Assessment and plan: His rate is acceptable he is in atrial flutter.. Current Visit: Yes (4) Epistaxis Status: Acute Assessment and plan: This could be the etiology of the patient's blood-tinged sputum. He has not had any more epistaxis but posterior bleeding could precipitate this this also could explain hypoxemia. Current Visit: Yes (5) Hypertension Status: Acute Current Visit: Yes Qualifiers: Hypertension type: essential hypertension Qualified Code(s): I10 - Essential (primary) hypertension (6) Pulmonary hypertension Status: Chronic Assessment and plan: This is significant Current Visit: Yes (7) Severe aortic stenosis Status: Chronic Assessment and plan: Possible AVR Current Visit: Yes (8) TIA (transient ischemic attack) Status: Acute Current Visit: Yes (9) Unsteady gait Status: Chronic Current Visit: Yes (10) Coronary artery disease Status: Chronic Assessment and plan: Adequately revascularized except for the ostial vein graft to the first obtuse marginal. I discussed with Dr. Mehta about options of redo surgical of treatment of this stenosis versus PCI post AVR Current Visit: Yes Qualifiers: Coronary Disease-Associated Artery/Lesion type: [place] artery [place] vs. transplanted heart: [place] heart Associated angina: without angina Qualified Code(s): I25.10 - Atherosclerotic heart disease of [place] coronary artery without angina pectoris (11) Diabetes mellitus Status: Chronic Current Visit: Yes Qualifiers: Diabetes mellitus type: type 2 (12) Hypoxemia Status: Acute Current Visit: Yes Cardiology - PN: Subj Interval history: Patient complains that the sleeping pill he had last night making loopy. He woke up this morning with a hangover and thought he was in a "fun house." No chest pain no shortness of breath. He is breathing better since his thoracentesis. He still has a coarse cough with rhonchi. Vital signs are stable heart rate is controlled Dr. Mehta's note was reviewed and we will continue Bicitra for now in anticipation of contrast exposure on Sunday. He has an allergy to "sulfa" therefore I will avoid Mucomyst. Exam (Progress Note) - Constitutional Vitals: Period Temp Pulse Resp BP Sys/Hurtado Pulse Ox Last 24 Hr 97.2 F-98.7 F 66-84 16-26 108-131/57-64 83-98 General appearance: normal weight - Eye Eye exam: Present: EOMI Pupils: Present: [place] - Respiratory Respiratory exam: Present: rhonchi - Cardiovascular Cardiovascular exam: Present: regular rate and rhythm (murmur without change) Result/EKG - Labs CBC & BMP: 09/16/16 02:04 09/16/16 02:04 Labs: Laboratory Results - last 24 hr 09/15/16 09/15/16 09/15/16 10:00 11:16 11:44 WBC RBC Hgb Hct MCV MCH MCHC RDW Plt Count MPV Neut % (Auto) Lymph % (Auto) [place] % (Auto) Eos % (Auto) Baso % (Auto) Neut # (Auto) Lymph # (Auto) [place] # (Auto) Eos # (Auto) Baso # (Auto) Total Counted Immature Gran % Nucleated RBC % Immature Gran # Segmented Neutrophils Lymphocytes Monocytes Nucleated RBCs # Platelet Estimate Sodium Potassium Chloride Carbon Dioxide Anion Gap BUN Creatinine GFR Calculation BUN/Creatinine Ratio Glucose POC Glucose 194 H Calculated Osmolality Calcium Magnesium Fluid Total Protein < 2.0 Fluid LDH 78 Pleural WBC 425 Pleural RBC [address] Cell [address] 100 Pleural Neutrophils 51 Pleural Lymphocytes 39 Pleural Monocytes 10 Pleural Diff Comment Pleural Glucose 229 09/15/16 09/15/16 09/16/16 15:07 20:26 02:04 WBC 11.8 RBC 3.85 Hgb 11.6 L Hct 34.3 L MCV 89.1 MCH 30 MCHC 33.8 RDW 13.4 Plt Count 174 MPV 10.9 Neut % (Auto) 88.6 H Lymph % (Auto) 4.2 L [place] % (Auto) 6.0 Eos % (Auto) 0.2 Baso % (Auto) 0.2 Neut # (Auto) 10.5 H Lymph # (Auto) 0.5 L [place] # (Auto) 0.7 Eos # (Auto) 0.0 Baso # (Auto) 0.0 Total Counted 100 Immature Gran % 0.8 Nucleated RBC % 0.0 Immature Gran # 0.09 Segmented Neutrophils 95 H Lymphocytes 4 L Monocytes 1 L Nucleated RBCs # 0.00 Platelet Estimate Normal Sodium Potassium Chloride Carbon Dioxide Anion Gap BUN Creatinine GFR Calculation BUN/Creatinine Ratio Glucose POC Glucose 217 H 225 H Calculated Osmolality Calcium Magnesium Fluid Total Protein Fluid LDH Pleural WBC Pleural RBC Pleural Tot Cell Ct Pleural Neutrophils Pleural Lymphocytes Pleural Monocytes Pleural Diff Comment Pleural Glucose 09/16/16 09/16/16 02:04 07:47 WBC RBC Hgb Hct MCV MCH MCHC RDW Plt Count MPV Neut % (Auto) Lymph % (Auto) [place] % (Auto) Eos % (Auto) Baso % (Auto) Neut # (Auto) Lymph # (Auto) [place] # (Auto) Eos # (Auto) Baso # (Auto) Total Counted Immature Gran % Nucleated RBC % Immature Gran # Segmented Neutrophils Lymphocytes Monocytes Nucleated RBCs # Platelet Estimate Sodium 138 Potassium 5.1 Chloride 102 Carbon Dioxide 25 Anion Gap 16.1 H BUN 85 H Creatinine 2.40 H GFR Calculation 25 BUN/Creatinine Ratio 35.00 H Glucose 226 H POC Glucose 270 H Calculated Osmolality 307.7 H Calcium 9.2 Magnesium 3.1 H Fluid Total Protein Fluid LDH Pleural WBC Pleural RBC Pleural Tot Cell Ct Pleural Neutrophils Pleural Lymphocytes Pleural Monocytes Pleural Diff Comment Pleural Glucose Quality Measures - Stroke Onset of Symptoms Date: 09/05/16 Onset of Symptoms Time: 15:30 Symptom Onset Unknown: No
[2016-09-16] MEDS: FLUTICASONE 50 MCG NASAL SPRAY 16 GM BOTTLE BOTH NARES SCH ×2 (13:30→21:35)
[2016-09-16] MEDS: diphenhydrAMINE CAP 25 MG CAPSULE PO PRN (21:35)
[2016-09-16] MEDS: ATORVASTATIN 80 MG TABLET PO SCH (21:35)
[2016-09-16] MEDS: amLODIPine 10 MG TABLET PO SCH (21:35)
[2016-09-17] MEDS: IPRATROPIUM 500 MCG/2.5 ML NEB RESP TX SCH ×4 (01:00→19:05)
[2016-09-17 04:42] LABS: Basophils % 0.1 % (0.0-0.8); Eosinophils % 0.1 % (0.00-10.9); Hematocrit 32.6 VOL% (42.0-52.0); Hemoglobin 10.9 GM/DL (14.0-18.0); Immature Granulocytes % 0.8 %; Immature Granulocytes Absolute 0.11 #; Lymphocytes # 0.6 10*3/uL (1.4-4.0); Lymphocytes % 4.2 % (21.2-54.2); Mean Corpuscular HGB Conc 33.4 GM/DL (32-36); Mean Corpuscular Hemoglobin 30 PG (27-34); Mean Corpuscular Volume 89.6 FL (87-102); Mean Platelet Volume 11.1 FL (9.6-12.0); Monocytes # 0.8 10*3/uL (0.11-0.8); Monocytes % 5.7 % (1.7-12.7); Neutrophils # 12.2 10*3/uL (1.4-7.4); Neutrophils % 89.1 % (38.7-73.9); Platelet Count 193 T/CUMM (130-400); Red Blood Count 3.64 MC/CUMM (3.8-5.5); Red Cell Distribution Width 13.4 % (9.3-17.3); White Blood Count 13.7 T/CUMM (4-12)
[2016-09-17 05:14] LABS: Magnesium 3.2 MG/DL (1.8-2.4); Osmolality,Calculated 309.7 MOS/KG (273-304); Potassium 5.7 MMOL/L (3.5-5.1)
--- NOTE | 2016-09-17 08:11 | Cardiothoracic Progress Note ---
Cardiothoracic Subjective Interval history: . Patient is resting fairly comfortably. He did complain of some increasing shortness of breath during the night but that does appear better at present. His creatinine is up to 2.6. He is scheduled for CT angiogram of the chest tomorrow but I would defer to Dr. Fernandes if he feels that we need to wait on this because of his renal function. We will continue to follow his progress and hopefully his pulmonary situation will improve some. Exam (Progress Note) - Constitutional Vitals: Period Temp Pulse Resp BP Sys/Hurtado Pulse Ox Last 24 Hr 96.5 F-98.1 F 63-78 20-26 110-139/55-63 89-98 Result/EKG - Labs CBC & BMP: 09/17/16 03:20 09/17/16 03:20 Labs: Laboratory Results - last 24 hr 09/16/16 09/16/16 09/16/16 11:49 15:44 19:16 WBC RBC Hgb Hct MCV MCH MCHC RDW Plt Count MPV Neut % (Auto) Lymph % (Auto) [place] % (Auto) Eos % (Auto) Baso % (Auto) Neut # (Auto) Lymph # (Auto) [place] # (Auto) Eos # (Auto) Baso # (Auto) Immature Gran % Nucleated RBC % Immature Gran # Nucleated RBCs # Sodium Potassium Chloride Carbon Dioxide Anion Gap BUN Creatinine GFR Calculation BUN/Creatinine Ratio Glucose POC Glucose 276 H 144 H 220 H Calculated Osmolality Calcium Magnesium 09/17/16 09/17/16 09/17/16 03:20 03:20 07:44 WBC 13.7 H RBC 3.64 L Hgb 10.9 L Hct 32.6 L MCV 89.6 MCH 30 MCHC 33.4 RDW 13.4 Plt Count 193 MPV 11.1 Neut % (Auto) 89.1 H Lymph % (Auto) 4.2 L [place] % (Auto) 5.7 Eos % (Auto) 0.1 Baso % (Auto) 0.1 Neut # (Auto) 12.2 H Lymph # (Auto) 0.6 L [place] # (Auto) 0.8 Eos # (Auto) 0.0 Baso # (Auto) 0.0 Immature Gran % 0.8 Nucleated RBC % 0.0 Immature Gran # 0.11 Nucleated RBCs # 0.00 Sodium 138 Potassium 5.7 H Chloride 101 Carbon Dioxide 26 Anion Gap 16.7 H BUN 94 H Creatinine 2.60 H GFR Calculation 23 BUN/Creatinine Ratio 36.00 H Glucose 207 H POC Glucose 279 H Calculated Osmolality 309.7 H Calcium 9.0 Magnesium 3.2 H Quality Measures - Stroke Onset of Symptoms Date: 09/05/16 Onset of Symptoms Time: 15:30 Symptom Onset Unknown: No
[2016-09-17] MEDS: cefTRIAXone 1,000 MG in SODIUM CHLORIDE 0.9% 100 ML IV SCH (09:19)
[2016-09-17] MEDS: CITRIC ACID/SODIUM CITRATE 30 ML UDCUP PO SCH ×3 (09:20→20:46)
[2016-09-17] MEDS: FLUTICASONE 50 MCG NASAL SPRAY 16 GM BOTTLE BOTH NARES SCH ×2 (09:20→20:46)
[2016-09-17] MEDS: POTASSIUM CHLORIDE 20 MEQ TABLET PO SCH (09:21)
[2016-09-17] MEDS: PANTOPRAZOLE 40 MG TABLET PO SCH (09:21)
[2016-09-17] MEDS: ASPIRIN EC 81 MG TABLET PO SCH (09:21)
[2016-09-17] MEDS: GLIMEPIRIDE 4 MG TABLET PO SCH ×2 (09:21→17:36)
[2016-09-17] MEDS: NIACIN 500 MG TABLET PO SCH (09:21)
[2016-09-17] MEDS: INSULIN LISPRO 100 UNIT/ML SUBCUT SCH ×4 (09:22→20:46)
[2016-09-17] MEDS: INSULIN GLARGINE 100 UNIT/ML SUBCUT SCH (09:22)
[2016-09-17] MEDS: METOPROLOL TARTRATE 25 MG TABLET PO SCH ×2 (09:22→20:46)
--- NOTE | 2016-09-17 10:20 | Cardiology Progress Note ---
Assessment and Plan (1) Acute on chronic renal failure Status: Acute Assessment and plan: Creatinine is up a little more. I called and discussed with Dr. Yuniel Sow from radiology about options including MRA without contrast. He recommended that we initially start with a noncontrast CT of the chest and he feels that this might be visualized on that imaging if not we consider MRI in early week. Current Visit: Yes (2) Atrial flutter by electrocardiogram Status: Acute Assessment and plan: better Current Visit: Yes (3) Bradycardia Status: Resolved Assessment and plan: His rate is acceptable he is in atrial flutter.. Current Visit: Yes (4) Epistaxis Status: Acute Assessment and plan: This could be the etiology of the patient's blood-tinged sputum. He has not had any more epistaxis but posterior bleeding could precipitate this this also could explain hypoxemia. Current Visit: Yes (5) Hypertension Status: Acute Current Visit: Yes Qualifiers: Hypertension type: essential hypertension Qualified Code(s): I10 - Essential (primary) hypertension (6) Pulmonary hypertension Status: Chronic Assessment and plan: This is significant Current Visit: Yes (7) Severe aortic stenosis Status: Chronic Assessment and plan: Possible AVR Current Visit: Yes (8) TIA (transient ischemic attack) Status: Acute Current Visit: Yes (9) Unsteady gait Status: Chronic Current Visit: Yes (10) Coronary artery disease Status: Chronic Assessment and plan: Adequately revascularized except for the ostial vein graft to the first obtuse marginal. I discussed with Dr. Mehta about options of redo surgical of treatment of this stenosis versus PCI post AVR Current Visit: Yes Qualifiers: Coronary Disease-Associated Artery/Lesion type: [place] artery [place] vs. transplanted heart: [place] heart Associated angina: without angina Qualified Code(s): I25.10 - Atherosclerotic heart disease of [place] coronary artery without angina pectoris (11) Diabetes mellitus Status: Chronic Current Visit: Yes Qualifiers: Diabetes mellitus type: type 2 (12) Hypoxemia Status: Acute Current Visit: Yes Cardiology - PN: Subj Interval history: Mr. Frazier states that he slept much better with Benadryl as opposed to benzodiazepines. His creatinine continues to rise slightly. At this point I do not think it is advisable to exposed additional contrast. I do not know the role of a noncontrast MRI in this setting it may be reasonable. I do not know if chest excursion and movement would prevent adequate visualization of the KAITY. Would consider talking to radiology about options for visualizing in 3 dimensions the position of the KAITY without giving contrast. The patient had tachypnea last night but he thinks he is doing better this morning. He has not had any productive sputum. I I discussed with Dr. Sow from radiology about the options of imaging this gentleman is KAITY without or minimal radiopaque contrast. He recommended we start with a noncontrast CT of the chest to see if the route of this vessel might be visualize if not we will consider an MRA angiogram early in the week. Exam (Progress Note) - Constitutional Vitals: Period Temp Pulse Resp BP Sys/Hurtado Pulse Ox Last 24 Hr 96.5 F-98.1 F 63-80 20-26 110-139/55-63 89-98 General appearance: normal weight - Head Head exam: Present: normal inspection - Eye Eye exam: Present: conjunctival injection - Neck Neck exam: Present: normal inspection - Respiratory Respiratory exam: Present: rhonchi - Cardiovascular Cardiovascular exam: Present: regular rate and rhythm - GI/Abdominal GI/Abdominal exam: Present: normal bowel sounds - Extremities Exam Extremities exam: Present: normal inspection - Neurological Exam Neurological exam: Present: alert, oriented X3 - Psychiatric Psychiatric exam: Present: normal affect, normal mood, depressed - Skin Skin exam: Present: normal color, warm, dry Result/EKG - Labs CBC & BMP: 09/17/16 03:20 09/17/16 03:20 Labs: Laboratory Results - last 24 hr 09/16/16 09/16/16 09/16/16 11:49 15:44 19:16 WBC RBC Hgb Hct MCV MCH MCHC RDW Plt Count MPV Neut % (Auto) Lymph % (Auto) [place] % (Auto) Eos % (Auto) Baso % (Auto) Neut # (Auto) Lymph # (Auto) [place] # (Auto) Eos # (Auto) Baso # (Auto) Immature Gran % Nucleated RBC % Immature Gran # Nucleated RBCs # Sodium Potassium Chloride Carbon Dioxide Anion Gap BUN Creatinine GFR Calculation BUN/Creatinine Ratio Glucose POC Glucose 276 H 144 H 220 H Calculated Osmolality Calcium Magnesium 09/17/16 09/17/16 09/17/16 03:20 03:20 07:44 WBC 13.7 H RBC 3.64 L Hgb 10.9 L Hct 32.6 L MCV 89.6 MCH 30 MCHC 33.4 RDW 13.4 Plt Count 193 MPV 11.1 Neut % (Auto) 89.1 H Lymph % (Auto) 4.2 L [place] % (Auto) 5.7 Eos % (Auto) 0.1 Baso % (Auto) 0.1 Neut # (Auto) 12.2 H Lymph # (Auto) 0.6 L [place] # (Auto) 0.8 Eos # (Auto) 0.0 Baso # (Auto) 0.0 Immature Gran % 0.8 Nucleated RBC % 0.0 Immature Gran # 0.11 Nucleated RBCs # 0.00 Sodium 138 Potassium 5.7 H Chloride 101 Carbon Dioxide 26 Anion Gap 16.7 H BUN 94 H Creatinine 2.60 H GFR Calculation 23 BUN/Creatinine Ratio 36.00 H Glucose 207 H POC Glucose 279 H Calculated Osmolality 309.7 H Calcium 9.0 Magnesium 3.2 H Quality Measures - Stroke Onset of Symptoms Date: 09/05/16 Onset of Symptoms Time: 15:30 Symptom Onset Unknown: No
--- NOTE | 2016-09-17 10:33 | XRay Report ---
Exam: XR chest 2V Indication: Shortness of breath Comparison study: Prior chest radiographs 09-15-16 Findings: Cardiac silhouette is enlarged, similar to prior. Median sternotomy wiring is noted. There has been interval worsening of perihilar interstitial opacities. There is also been interval worsening of right-sided pleural effusion which is now moderate in size. A small-moderate left pleural effusion is noted. There is no pneumothorax. The esophagogastric tube is partially imaged but the distal extent is not included in the [id number]. Impression: Worsening of perihilar and basilar interstitial opacities and bilateral pleural effusions moderate in size on the right. PROCEDURE INTERPRETED AT [facility] DEPARTMENT OF RADIOLOGY Final Report Signed by: Yuniel Sow
[2016-09-17] MEDS ORDERED: FUROSEMIDE 40 MG/4 ML VIAL IV ONE (13:14)
--- NOTE | 2016-09-17 14:03 | CT Report ---
CT chest wo con Technique: Axial CT imaging of the chest was performed without administration of intravenous contrast. Coronal and sagittal reformatted images were additionally created and submitted for review. Dose reduction: This CT exam was performed using one or more of the following dose reduction techniques: Automated exposure control, automated adjustment of the mA and/or KV according to patient size, or use of iterative reconstruction technique. Total DLP: 234 mGy*cm Clinical history: Assess coronary bypass graft Comparison: None available Findings: Please note, lack of intravenous contrast limits evaluation. CHEST: Mediastinum/vessels: Assessment is limited given lack of intravenous contrast. Prominent atherosclerotic calcification is noted in the aortic arch and descending thoracic aorta which is otherwise normal caliber. Pulmonary arteries also appear nonenlarged. Along the left heart border, there is a vessel extending cephalad within the mediastinum which may represent the SINGH-LAD graft. This can be seen coursing along the midline in the superior mediastinum and lateral to the pulmonary outflow tract. This appears to anastomose with the LAD approximately at axial image 44. A second graft is also noted arising from a similar location in the anterior midline superior mediastinum and courses inferiorly lateral to the pulmonary outflow tract at the aortopulmonary window this second graft appears to anastomose with the first obtuse marginal on axial image 57. Again superiorly, these vessels appear to arise very near the midline just anterior to the left innominate vein (axial image 24). Thyroid/lymph nodes: Multiple mildly prominent mediastinal lymph nodes are noted which are nonspecific but may be reactive. These demonstrate short axis of 1 cm or less. There is no axillary or significant pelvic adenopathy. Thyroid gland appears within normal limits. Lungs: Prominent/large right-sided pleural effusion is noted. There are inter and intralobular septal thickening changes primarily within the upper lobes and lung bases most compatible with a degree of interstitial edema/heart failure. [id number] left pleural effusion is also noted. There is no pneumothorax. The central airways are patent. No acute abnormality is identified within the visualized upper abdomen. BONES: No acute or suspicious appearing osseous abnormalities are identified. Median sternotomy wiring is noted Impression: 1. Large right and small left pleural effusions with findings suggestive of heart failure/interstitial edema. 2. Best attempt at description course of the SINGH-LAD and SINGH-OM1 bypass grafts as detailed above. If this description is insufficient, CT angiography would be required for further assessment. Additionally, would be happy to review the images at the workstation if this would be helpful. PROCEDURE INTERPRETED AT [facility] DEPARTMENT OF RADIOLOGY Final Report Signed by: Yuniel Sow
--- NOTE | 2016-09-17 14:52 | Pulmonology Progress Note ---
Pulmonary - PN: Subj Interval history: This is a progress note for 09/16/2016. Note was dictated on this date but I do not find it in this patient's electronic medical record so will reproduce it is best I can. 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 He also has bronchitis. He is on medicines for his bronchitis. He has renal insufficiency which has not responded as well as expected to diuretics. Interventional radiology drain the patient's right pleural effusion on 9 2016. This man has had a previous decortication on the left for complications related to heart surgery about [address] Thaddeus Mehta is following this patient and is considering the possibility of a aortic valve replacement if the patient's overall status and improved. Dr. Lawson is asked if we watch his renal function closely. Chest x-ray done 09/15/2016 shows a moderate size right pleural effusion. Pulmonary arteries are top normal. There is a very small left-sided pleural effusion. Central vasculature is top normal. Pleural effusions. Glucose 229. Total cell count is 151 neutrophils, 39 lymphocytes and 10 monocytes. LDH is 78. Total protein is less than 2.0. This appears to be a transudate. Lab. White count is 11,800. H&H 11.6/34.3. Platelets are 179,000. Sodium is 138. Potassium is 5.1. Creatinine is gradually increased from 2.10-2.40 with a BUN of 85. Labs been reviewed. Medicines been reviewed. Physical exam. Vital signs. See above. General. The patient is lying relatively flat in bed and says he is breathing fairly comfortable. Cranial nerves are intact with decreased hearing acuity. Long track motor functions intact. Gait was not tested Chest. Stiff sounding breath sounds Heart. PMI is lateral. I cannot hear a murmur. Abdomen. Nontender. Positive bowel sounds Lower extremities. Nothing to suggest deep venous thrombophlebitis Neck. Symmetrical. No meningismus Lymphatics. No submandibular cervical or supraclavicular adenopathy The remainder the physical exam is noncontributory. Plan. 1. Continue present regimen. 2. Watch renal status. 3. Watch overall volume. 4. No changes were made Exam (Progress Note) - Constitutional Vitals: Period Temp Pulse Resp BP Sys/Hurtado Pulse Ox Last 24 Hr 96.5 F-98.1 F 58-80 20-26 110-139/55-63 89-98 Results - Labs CBC & BMP: 09/17/16 03:20 09/17/16 03:20
--- NOTE | 2016-09-17 14:57 | Pulmonology Progress Note ---
Pulmonary - PN: Subj Interval history: This is a progress note for 09/16/2016. Note was dictated on this date but I do not find it in this patient's electronic medical record so will reproduce it is best I can. 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 He also has bronchitis. He is on medicines for his bronchitis. He has renal insufficiency which has not responded as well as expected to diuretics. Interventional radiology drain the patient's right pleural effusion on 9 2016. This man has had a previous decortication on the left for complications related to heart surgery about [address] Thaddeus Mehta is following this patient and is considering the possibility of a aortic valve replacement if the patient's overall status and improved. Dr. Lawson is asked if we watch his renal function closely. Chest x-ray done 09/15/2016 shows a moderate size right pleural effusion. Pulmonary arteries are top normal. There is a very small left-sided pleural effusion. Central vasculature is top normal. Pleural effusions. Glucose 229. Total cell count is 151 neutrophils, 39 lymphocytes and 10 monocytes. LDH is 78. Total protein is less than 2.0. This appears to be a transudate. Lab. White count is 11,800. H&H 11.6/34.3. Platelets are 179,000. Sodium is 138. Potassium is 5.1. Creatinine is gradually increased from 2.10-2.40 with a BUN of 85. Labs been reviewed. Medicines been reviewed. 09/17/2016. Patient is more short of breath today. He is having to sit up in bed. He denies any chest pain. Today's chest x-ray shows a persistent moderate size right pleural effusion. Patient has interstitial edema in the perihilar areas and he has fairly dense subpleural scar along the left chest wall. Natruretic peptide is increased to 612. I have given this patient 40 mg of Lasix IV push and I have asked staff to let Dr. Fernandes know. Today's creatinine is 2.6 with a BUN of 94. His potassium is 5.7 with a sodium 138. White count is 13,700. H&H is 10.9/32.6. Physical exam. Vital signs. See above. General. The patient is having to sit up at a 45 angle in order to breathe comfortably.. Cranial nerves are intact with decreased hearing acuity. Long track motor functions intact. Gait was not tested Chest. Stiff sounding breath sounds Heart. PMI is lateral. I cannot hear a murmur. Abdomen. Nontender. Positive bowel sounds Lower extremities. Nothing to suggest deep venous thrombophlebitis Neck. Symmetrical. No meningismus Lymphatics. No submandibular cervical or supraclavicular adenopathy The remainder the physical exam is noncontributory. Plan. 09/16/2016 1. Continue present regimen. 2. Watch renal status. 3. Watch overall volume. 4. No changes were made 09/17/2016. 1. Lasix. 2. See my note from today above 3. CT scan of the chest was done and read by Dr. Yuniel Garrett. He noted a large right and small left pleural effusion with findings suggestive of congestive heart failure and interstitial edema. He also described changes in coronary artery bypass grafts. Exam (Progress Note) - Constitutional Vitals: Period Temp Pulse Resp BP Sys/Hurtado Pulse Ox Last 24 Hr 96.5 F-98.1 F 58-80 20-26 110-139/55-63 89-98 Results - Labs CBC & BMP: 09/17/16 03:20 09/17/16 03:20
[2016-09-17] MEDS: amLODIPine 10 MG TABLET PO SCH (20:46)
[2016-09-17] MEDS: diphenhydrAMINE CAP 25 MG CAPSULE PO PRN (20:46)
[2016-09-17] MEDS: ATORVASTATIN 80 MG TABLET PO SCH (20:47)
[2016-09-18] MEDS: IPRATROPIUM 500 MCG/2.5 ML NEB RESP TX SCH ×4 (01:34→18:55)
[2016-09-18 05:27] LABS: Basophils % 0.2 % (0.0-0.8); Eosinophils % 0.2 % (0.00-10.9); Hemoglobin 10.1 GM/DL (14.0-18.0); Immature Granulocytes % 0.9 %; Immature Granulocytes Absolute 0.12 #; Lymphocytes # 0.5 10*3/uL (1.4-4.0); Lymphocytes % 3.6 % (21.2-54.2); Mean Corpuscular HGB Conc 33.7 GM/DL (32-36); Mean Corpuscular Hemoglobin 30 PG (27-34); Mean Platelet Volume 10.9 FL (9.6-12.0); Monocytes # 0.9 10*3/uL (0.11-0.8); Monocytes % 6.3 % (1.7-12.7); Neutrophils # 12.1 10*3/uL (1.4-7.4); Neutrophils % 88.8 % (38.7-73.9); Platelet Count 197 T/CUMM (130-400); Red Blood Count 3.37 MC/CUMM (3.8-5.5); Red Cell Distribution Width 13.4 % (9.3-17.3); White Blood Count 13.6 T/CUMM (4-12)
[2016-09-18 06:05] LABS: Calcium 8.9 MG/DL (8.5-10.1); Magnesium 3.4 MG/DL (1.8-2.4); Potassium 5.1 MMOL/L (3.5-5.1)
[2016-09-18 06:26] LABS: Lymphocytes 2 % (20-55); Myelocytes 1 %; Segmented Neutrophils 94 % (50-85); Total Cells Counted 100
[2016-09-18 06:27] LABS: Hypochromasia Slight; Microcytosis 1+; Ovalocytes Slight
[2016-09-18 06:28] LABS: Platelet Estimate Adequate
--- NOTE | 2016-09-18 06:34 | Cardiothoracic Progress Note ---
Cardiothoracic Subjective Interval history: Patient had a reasonably stable night. His breathing is actually some better this morning. Unfortunately his BUN and creatinine continue to rise in his creatinine is 2.8 this morning. We are holding off on his CT angiogram for the time being. This does raise the question of whether he is going to become a reasonable surgical candidate at some point in the future. Continue to follow for now. Exam (Progress Note) - Constitutional Vitals: Period Temp Pulse Resp BP Sys/Hurtado Pulse Ox Last 24 Hr 96.5 F-97.9 F 58-86 20-26 115-134/54-63 89-98 Result/EKG - Labs CBC & BMP: 09/18/16 05:11 09/18/16 05:11 Labs: Laboratory Results - last 24 hr 09/17/16 09/17/16 09/17/16 07:44 11:46 12:48 WBC RBC Hgb Hct MCV MCH MCHC RDW Plt Count MPV Neut % (Auto) Lymph % (Auto) [place] % (Auto) Eos % (Auto) Baso % (Auto) Neut # (Auto) Lymph # (Auto) [place] # (Auto) Eos # (Auto) Baso # (Auto) Total Counted Immature Gran % Nucleated RBC % Immature Gran # Segmented Neutrophils Lymphocytes Monocytes Myelocytes Nucleated RBCs # Platelet Estimate Hypochromasia Microcytosis Ovalocytes Sodium Potassium Chloride Carbon Dioxide Anion Gap BUN Creatinine GFR Calculation BUN/Creatinine Ratio Glucose POC Glucose 279 H 274 H Calculated Osmolality Calcium Magnesium B-Natriuretic Peptide 612 H 09/17/16 09/17/16 09/18/16 15:48 19:21 05:11 WBC 13.6 H RBC 3.37 L Hgb 10.1 L Hct 30.0 L MCV 89.0 MCH 30 MCHC 33.7 RDW 13.4 Plt Count 197 MPV 10.9 Neut % (Auto) 88.8 H Lymph % (Auto) 3.6 L [place] % (Auto) 6.3 Eos % (Auto) 0.2 Baso % (Auto) 0.2 Neut # (Auto) 12.1 H Lymph # (Auto) 0.5 L [place] # (Auto) 0.9 H Eos # (Auto) 0.0 Baso # (Auto) 0.0 Total Counted 100 Immature Gran % 0.9 Nucleated RBC % 0.0 Immature Gran # 0.12 Segmented Neutrophils 94 H Lymphocytes 2 L Monocytes 3 Myelocytes 1 Nucleated RBCs # 0.00 Platelet Estimate Adequate Hypochromasia Slight Microcytosis 1+ Ovalocytes Slight Sodium Potassium Chloride Carbon Dioxide Anion Gap BUN Creatinine GFR Calculation BUN/Creatinine Ratio Glucose POC Glucose 267 H 182 H Calculated Osmolality Calcium Magnesium B-Natriuretic Peptide 09/18/16 09/18/16 05:11 05:11 WBC RBC Hgb Hct MCV MCH MCHC RDW Plt Count MPV Neut % (Auto) Lymph % (Auto) [place] % (Auto) Eos % (Auto) Baso % (Auto) Neut # (Auto) Lymph # (Auto) [place] # (Auto) Eos # (Auto) Baso # (Auto) Total Counted Immature Gran % Nucleated RBC % Immature Gran # Segmented Neutrophils Lymphocytes Monocytes Myelocytes Nucleated RBCs # Platelet Estimate Hypochromasia Microcytosis Ovalocytes Sodium 136 Potassium 5.1 Chloride 100 Carbon Dioxide 25 Anion Gap 16.1 H BUN 101 H Creatinine 2.80 H GFR Calculation 21 BUN/Creatinine Ratio 36.00 H Glucose 204 H POC Glucose Calculated Osmolality 309.0 H Calcium 8.9 Magnesium 3.4 H B-Natriuretic Peptide 632 H Quality Measures - Stroke Onset of Symptoms Date: 09/05/16 Onset of Symptoms Time: 15:30 Symptom Onset Unknown: No
[2016-09-18] MEDS: GLIMEPIRIDE 4 MG TABLET PO SCH ×2 (09:19→17:23)
[2016-09-18] MEDS: METOPROLOL TARTRATE 25 MG TABLET PO SCH ×2 (09:19→21:18)
[2016-09-18] MEDS: ASPIRIN EC 81 MG TABLET PO SCH (09:19)
[2016-09-18] MEDS: PANTOPRAZOLE 40 MG TABLET PO SCH (09:20)
[2016-09-18] MEDS: CITRIC ACID/SODIUM CITRATE 30 ML UDCUP PO SCH ×3 (09:21→21:17)
[2016-09-18] MEDS: INSULIN LISPRO 100 UNIT/ML SUBCUT SCH ×4 (09:21→23:57)
[2016-09-18] MEDS: INSULIN GLARGINE 100 UNIT/ML SUBCUT SCH (09:22)
[2016-09-18] MEDS: FLUTICASONE 50 MCG NASAL SPRAY 16 GM BOTTLE BOTH NARES SCH ×2 (09:24→21:18)
[2016-09-18] MEDS: cefTRIAXone 1,000 MG in SODIUM CHLORIDE 0.9% 100 ML IV SCH (09:24)
[2016-09-18] MEDS: NIACIN 500 MG TABLET PO SCH (09:25)
--- NOTE | 2016-09-18 09:33 | Pulmonology Progress Note ---
Pulmonary - PN: Subj Interval history: This 86-year-old white male has congestive heart failure due to aortic stenosis. Also has atherosclerotic heart disease with previous coronary bypass surgery. Needs to have his IV aortic valve replaced. He has a right pleural effusion. His chest x-ray looks a little bit better today as far as the pulmonary edema is concerned. However we gave him Lasix yesterday and his creatinine has risen a little more. I think we would do best to get the right pleural fluid drained in preparation for surgery. Will ask interventional radiology to do this since it appears to be loculated laterally and would be safely done with ultrasound guidance. Patient is not sleeping well. Should tolerate some Ativan at bedtime. Quite anxious. I should note that the reason he has pleural fluid on the right and not the left is that he has had a previous left decortication. 09/18/2016 we have tried to diurese him and it has not been very successful. His creatinine has risen. He had a right thoracentesis with removal of 800 mL of fluid but he had his CT scan yesterday still showed significant right effusion. The pleural fluid is a transudate. Certainly think this is due to congestive heart failure, due to his aortic stenosis. It will be very difficult to treat his heart failure without the valve being replaced. However he is at high risk for surgery given his fragile state and acute kidney injury with Lasix and low cardiac output. Will ask nephrology to see if they can help us with this. Patient at present is about the same as far as her shortness of breath. He is empirically on antibiotics. Exam (Progress Note) - Constitutional Vitals: Period Temp Pulse Resp BP Sys/[place]ado Pulse Ox Last 24 Hr 97.4 F-97.9 F 58-86 20-24 115-134/54-72 90-98 Exam: Patient's alert sitting on the side of the bed somewhat anxious. Vital signs normal. Wearing ventimask oxygen. Pupils react to light. Throat clear. Neck supple no bruits. Chest shows a few basilar crackles and some dullness at the right base. Heart normal rate rhythm grade 2/6 systolic murmur at right base. Abdomen soft nontender no masses. Bowel sounds present. Extremities no clubbing or cyanosis. Trace of edema. Calves nontender. Results - Labs CBC & BMP: 09/18/16 05:11 09/18/16 05:11 Lab Results: I have reviewed the past 24 hour labs - Diagnostic Findings Procedure: CT - chest: image reviewed by me (Moderate right pleural effusion. Some interstitial scarring. Pleural surgical changes on left side. Sternal wires.) Assessment and Plan (1) Syncope Status: Acute Assessment and plan: Syncope likely due to cardiac causes related to his aortic stenosis. 09/15/16 likely due to his aortic stenosis. 09/18/2016 again the syncope is likely due to his aortic stenosis. Current Visit: Yes (2) Chronic kidney disease Status: Chronic Assessment and plan: Creatinine is 2.1. He has had some renal insufficiency for quite some time related to vascular disease and diabetes. At present I think he is ahead on fluid. I will bump him with Lasix. 09/15/16 creatinine up to 2.3 after a dose of Lasix. Afraid to diurese any more vigorously at present. Asking interventional radiology to drain the loculated right effusion. This should help getting prepped for aortic valve replacement. 09/18/2016 creatinine up to 2.8. Difficulty mobilizing right pleural effusion fluid Current Visit: Yes (3) Coronary artery disease Status: Chronic Assessment and plan: Previous coronary bypass surgery with additional findings at catheterization this admission. Current Visit: Yes Qualifiers: Coronary Disease-Associated Artery/Lesion type: [place] artery [place] vs. transplanted heart: [place] heart Associated angina: without angina Qualified Code(s): I25.10 - Atherosclerotic heart disease of [place] coronary artery without angina pectoris (4) Pulmonary hypertension Status: Chronic Assessment and plan: This was not quantified on the echo but is likely to be secondary to his left heart disease with aortic stenosis. 09/15/16 this should be due to his aortic stenosis and congestive heart failure. 09/18/2016 secondary to his left heart disease. Current Visit: Yes (5) Severe aortic stenosis Status: Chronic Assessment and plan: Has severe aortic stenosis by echo and catheterization. Likely the possible cause of his congestive heart failure and pulmonary hypertension. 09/15/16 hopefully can have surgery when we get him tuned up. 09/18/2016 will need surgery if he can tolerate it. Current Visit: Yes (6) Diabetes mellitus Status: Chronic Assessment and plan: Has some hyperglycemia. Adding sliding scale. 09/15/16 glucoses in the 140-200 range. 09/18/2016 glucoses look okay. Current Visit: Yes Qualifiers: Diabetes mellitus type: type 2 (7) Acute bronchitis Status: Acute Assessment and plan: Based on the change in sputum color and elevated white count 16,000 think is reasonable to cover him with antibiotics for this. Will use Atrovent for bronchodilators. 09/15/16 empirically on antibiotics and Atrovent. I think his main problem respiratory escobar is congestive heart failure related to his aortic stenosis. Would not delay surgery for bronchitis in this situation 09/18/2016 on empiric antibiotics. Current Visit: Yes
--- NOTE | 2016-09-18 11:00 | XRay Report ---
XR chest 2V Indication: SOB Comparison: Chest x-ray dated September 17, 2016 Technique: Frontal and lateral views of the chest. Findings: Continued cardiomegaly status post sternotomy. No significant change in small left and moderate right pleural fluid. No significant change in prominence of bilateral interstitial lung markings as well as hazy opacification throughout the bilateral lungs with scattered small opacities. Findings most suspicious for pulmonary edema/CHF. Visualized osseous and surrounding soft tissue structures appear grossly unchanged. IMPRESSION: No significant interval change. PROCEDURE INTERPRETED AT [facility] DEPARTMENT OF RADIOLOGY Final Report Signed by: Dr Petr Wei
--- NOTE | 2016-09-18 12:16 | Pathology Report from [facility] ---
[facility] [place] ACCESSION # : [id number] PATIENT NAME : Kevin Frazier ORDERING DR : SUSANA HELTON MD CLINICAL HX: Right Thoracentesis POST-OP DX: Same SPECIMEN INFO: Fluid,Pleural,Right - 800 mls red orange, cloudy CLASS: II CLASS COMMENTS: Reactive mesothelials, inflammationCELL BLOCK: Same CLASS LEGEND: CLASS 0 Material inadequate for diagnosis because of (see comment) CLASS I Absence of atypical or abnormal cells CLASS II Atypical Cytology but no evidence of malignancy CLASS III Cytology suggestive of but not conclusive for malignancy CLASS IV Cytology strongly suggestive of malignancy CLASS V Cytology conclusive for malignancy COLLECTED DATE: 09/15/2016 [facility] REPORT DATE: 09/18/2016 ELECTRONICALLY SIGNED BY: Alexandria Mckeon M.D. 09/18/2016 - 9:15:50 MTDPo
--- NOTE | 2016-09-18 15:51 | Cardiology Progress Note ---
Assessment and Plan (1) Severe aortic stenosis Status: Chronic Assessment and plan: See plan of care listed below. Current Visit: Yes (2) Acute on chronic renal failure Status: Acute Assessment and plan: See plan of care listed below. Current Visit: Yes (3) Epistaxis Status: Acute Assessment and plan: See plan of care listed below. Current Visit: Yes (4) Hypertension Status: Chronic Assessment and plan: See plan of care listed below. Current Visit: Yes Qualifiers: Hypertension type: essential hypertension Qualified Code(s): I10 - Essential (primary) hypertension (5) Syncope Status: Acute Assessment and plan: See plan of care listed below. Current Visit: Yes (6) Coronary artery disease Status: Chronic Assessment and plan: See plan of care listed below. Current Visit: Yes Qualifiers: Coronary Disease-Associated Artery/Lesion type: ione artery [place] vs. transplanted heart: [place] heart Associated angina: without angina Qualified Code(s): I25.10 - Atherosclerotic heart disease of [place] coronary artery without angina pectoris (7) Diabetes mellitus Status: Chronic Assessment and plan: See plan of care listed below. Current Visit: Yes Qualifiers: Diabetes mellitus type: type 2 (8) Hyperlipidemia Status: Chronic Assessment and plan: See plan of care listed below. Current Visit: Yes (9) Pulmonary hypertension Status: Chronic Assessment and plan: See plan of care listed below. Current Visit: Yes (10) Bradycardia Status: Resolved Assessment and plan: See plan of care listed below. Current Visit: Yes (11) Leukocytosis Status: Acute Assessment and plan: See plan of care listed below. Current Visit: Yes (12) Pleural effusion Status: Acute Assessment and plan: See plan of care listed below. Current Visit: Yes (13) Atrial flutter Status: Acute Assessment and plan: See plan of care listed below. Current Visit: Yes Cardiology - PN: Subj Interval history: MEMORY CARE PROGRAM RESIDENT: DR. GOLDSMITH Mr. Frazier is a 86 year old male with a history of coronary artery disease, hypertension, hyperlipidemia, type 2 diabetes mellitus, pulmonary hypertension, valvular heart disease and chronic kidney disease. He is status post coronary artery bypass grafting August 06 2001 with SINGH to the LAD and vein graft to the circumflex marginal and right coronary arteries. He is status post right carotid endarterectomy July 03, 2002. He was admitted to the hospital after an episode of syncope and prolonged weakness. He was initially in atrial flutter, bradycardia, junctional rhythm, no atrial flutter, with normal conduction. He was on no zackery blocking agents. An echocardiogram was performed with showed severe aortic stenosis with preserved ejection fraction. He had some trivial troponin elevation in the setting of an elevated creatinine. Urine toxicology was negative. 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 Mr. Frazier has had trouble with dyspnea and decreased O2 saturations past couple of days. Pulmonology has seen him in consultation and due to a right pleural effusion, he underwent ultrasound- guided thoracentesis September 15 where he was drained of 800 cc of straw- colored, blood-tinged fluid. September UPDATE : Patient was seen and examined on telemetry with Dr. Goldsmith. Patient is sitting in bed requiring oxygen Via Ventimask. Patient is without chest pain, heaviness and tightness. Creatinine continues to rise, today it is 2.8. Vital signs are stable. Patient remains in atrial flutter with controlled ventricular rate, heart rate currently in the 60s. Further plan and addendum to follow per Dr. Goldsmith. ASSESSMENT/PLAN: 1. SEVERE AORTIC STENOSIS - Dr. Mehta has been consulted and tentatively plans perform AVR. Echocardiogram showed severe aortic stenosis and cardiac catheterization root revealed patency of an internal mammary graft and circumflex graft although the circumflex graft has an ostial stenosis. The right coronary graft is occluded but the ione right coronary does not have significant obstructive lesions. The procedure is made somewhat more risky by his age, renal dysfunction, and presence of a patent internal mammary graft. CV Surgery plans to try to localize this graft more clearly CT angiogram at some point when creatinine normalizes. 2. SYNCOPE - Carotid doppler ultrasound reveals right ICA with 50-69% stenosis. CT of the brain was negative. This could have been related to bradycardia or his aortic stenosis. Neurology has seen him in consultation and does not feel he has suffered a TIA at this time. 3. ATRIAL FLUTTER - CHADSVASC 5. Anticoagulation has been held pending surgery next week. He has been started on a beta demarco and has tolerated this well. 4. BRADYCARDIA - Resolved. We will continue to monitor. 5. CORONARY ARTERY DISEASE - He is status post coronary artery bypass grafting August 06 2001 with SINGH to the LAD and vein graft to the circumflex marginal and right coronary arteries. Cardiac catheterization on 09/13/2016 revealed severe ione three-vessel and ostial left main coronary artery disease with 2 of 3 bypass grafts patent. There is an ostial pinch in the saphenous vein graft to the obtuse marginal branch. The right coronary artery graft is occluded but the right coronary artery does not have any significant high-grade disease at this time. 6. HYPERTENSION - This is currently well controlled on the current therapy. Will continue to monitor and adjust accordingly. 7. HYPERLIPIDEMIA - Continue lipid lowering agent. FLP revealed triglycerides 98 , cholesterol 127, LDL 60, HDL 54. 8. DIABETES - Continue current plan of care. 9. ACUTE ON CHRONIC RENAL FAILURE - Creatinine continues to rise, 2.8 today. I will consult nephrology at this time. Daily BMP. 10. LEUKOCYTOSIS - He has been afebrile. He is receiving empiric treatment with IV antibiotics. Preliminary report sputum culture resulted gram-positive cocci , awaiting sensitivity. Blood cultures negative. His Levaquin dose was adjusted for his renal insufficiency. White blood cell count is down to 13.6 today. 11. EPISTAXIS - Required packing by ENT last Sunday. He has had no further episodes since. H&H stable. This could be the etiology of the patient's blood- tinged sputum. He has not had any more epistaxis. 12. PLEURAL EFFUSION - Status post thoracentesis September 15. CT scan yesterday still revealed significant right effusion. Patient is being seen by pulmonary. They feel that this is secondary to patient's congestive heart failure due to his aortic stenosis. It is difficult to diurese patient at this time as patient's creatinine continues to rise, 2.8 today. We will continue to monitor this with daily BMP. Nephrology has been consulted to further assist. Further plan and addendum to follow per Dr. olivera. Exam (Progress Note) - Constitutional Vitals: Period Temp Pulse Resp BP Sys/Hurtado Pulse Ox Last 24 Hr 97.4 F-97.9 F 62-86 20-24 115-134/54-72 90-98 Exam: General: Appears chronically ill. HEENT: PERRL, normocephalic, atraumatic. Mucous membranes moist. No jaundice noted. Neck: No JVD/HJR, no thyromegaly or lymphadenopathy noted. Cardiac: Atrial flutter with controlled ventricular rate. Systolic murmur consistent with aortic stenosis. Lungs: Scattered rhonchi. Requiring oxygen Via Ventimask. Abdomen: Soft, bowel sounds normoactive. Nontender and nondistended. No abdominal bruit or thrill noted. No masses noted. Extremities: No clubbing, cyanosis noted. No edema noted. Upper extremity pulses 2+. Lower extremity pulses 2+. Capillary refill less than 3 seconds. Skin: No unusual lesions or rashes. No skin breakdown appreciated. Neuro: Awake, alert and oriented 3. Moves all extremities well without hemiparesis or paralysis. No essential tremor is appreciated. Result/EKG - Labs CBC & BMP: 09/18/16 05:11 09/18/16 05:11 Lab Results: I have reviewed the past 24 hour labs Labs: Laboratory Results - last 24 hr 09/17/16 09/17/16 09/18/16 15:48 19:21 05:11 WBC 13.6 H RBC 3.37 L Hgb 10.1 L Hct 30.0 L MCV 89.0 MCH 30 MCHC 33.7 RDW 13.4 Plt Count 197 MPV 10.9 Neut % (Auto) 88.8 H Lymph % (Auto) 3.6 L [place] % (Auto) 6.3 Eos % (Auto) 0.2 Baso % (Auto) 0.2 Neut # (Auto) 12.1 H Lymph # (Auto) 0.5 L [place] # (Auto) 0.9 H Eos # (Auto) 0.0 Baso # (Auto) 0.0 Total Counted 100 Immature Gran % 0.9 Nucleated RBC % 0.0 Immature Gran # 0.12 Segmented Neutrophils 94 H Lymphocytes 2 L Monocytes 3 Myelocytes 1 Nucleated RBCs # 0.00 Platelet Estimate Adequate Hypochromasia Slight Microcytosis 1+ Ovalocytes Slight Sodium Potassium Chloride Carbon Dioxide Anion Gap BUN Creatinine GFR Calculation BUN/Creatinine Ratio Glucose POC Glucose 267 H 182 H Calculated Osmolality Calcium Magnesium B-Natriuretic Peptide 09/18/16 09/18/16 09/18/16 05:11 05:11 07:42 WBC RBC Hgb Hct MCV MCH MCHC RDW Plt Count MPV Neut % (Auto) Lymph % (Auto) [place] % (Auto) Eos % (Auto) Baso % (Auto) Neut # (Auto) Lymph # (Auto) [place] # (Auto) Eos # (Auto) Baso # (Auto) Total Counted Immature Gran % Nucleated RBC % Immature Gran # Segmented Neutrophils Lymphocytes Monocytes Myelocytes Nucleated RBCs # Platelet Estimate Hypochromasia Microcytosis Ovalocytes Sodium 136 Potassium 5.1 Chloride 100 Carbon Dioxide 25 Anion Gap 16.1 H BUN 101 H Creatinine 2.80 H GFR Calculation 21 BUN/Creatinine Ratio 36.00 H Glucose 204 H POC Glucose 231 H Calculated Osmolality 309.0 H Calcium 8.9 Magnesium 3.4 H B-Natriuretic Peptide 632 H 09/18/16 12:13 WBC RBC Hgb Hct MCV MCH MCHC RDW Plt Count MPV Neut % (Auto) Lymph % (Auto) [place] % (Auto) Eos % (Auto) Baso % (Auto) Neut # (Auto) Lymph # (Auto) [place] # (Auto) Eos # (Auto) Baso # (Auto) Total Counted Immature Gran % Nucleated RBC % Immature Gran # Segmented Neutrophils Lymphocytes Monocytes Myelocytes Nucleated RBCs # Platelet Estimate Hypochromasia Microcytosis Ovalocytes Sodium Potassium Chloride Carbon Dioxide Anion Gap BUN Creatinine GFR Calculation BUN/Creatinine Ratio Glucose POC Glucose 278 H Calculated Osmolality Calcium Magnesium B-Natriuretic Peptide Quality Measures - Stroke Onset of Symptoms Date: 09/05/16 Onset of Symptoms Time: 15:30 Symptom Onset Unknown: No
[2016-09-18] MEDS: ATORVASTATIN 80 MG TABLET PO SCH (21:18)
[2016-09-18] MEDS: amLODIPine 10 MG TABLET PO SCH (21:18)
--- NOTE | 2016-09-18 23:40 | Nephrology Consult Note ---
History of Present Illness Chief complaint: Renal failure History of present illness: Mr. Frazier is a 86 year old male admitted with syncope. Evaluation has revealed severe aortic stenosis. Aortic valve replacement is being considered. He has CAD with prior CABG. Right pleural effusion has been tapped since admission. Shortness of breath improved after thoracentesis. He had renal insufficiency at the time of admission. Baseline renal function prior to admission not known. Renal function has worsened since admission. He did have a CT with contrast on 09/15/2016 Home Medications Medication Instructions Recorded Confirmed Type Furosemide [Furosemide] 40 mg PO DAILY 11/23/14 09/06/16 History Metoprolol Succinate 25 mg PO BID 11/23/14 09/06/16 History NIFEdipine [Nifedipine ER] 30 mg PO DAILY 11/23/14 09/06/16 History Simvastatin 80 mg PO AC SUPPER 11/23/14 09/06/16 History cloNIDine HCl [Clonidine HCl] 0.2 mg PO BID 11/23/14 09/06/16 History glyBURIDE MICRONIZED [Glynase] 6 mg PO BID W/MEALS 11/23/14 09/06/16 History metOLazone [Metolazone] 2.5 mg PO QOTHER DAY 11/23/14 09/06/16 History Aspirin EC Tab 325 mg PO DAILY 09/06/16 09/06/16 History Glimepiride [Glimepiride] 4 mg PO BID 09/06/16 09/06/16 History Loratadine Tab [Claritin Tab] 10 mg PO DAILY PRN 09/06/16 09/06/16 History Niacin (Inositol Niacinate) 500 mg PO DAILY 09/06/16 09/06/16 History [Niacin 500 mg Capsule] Allergies Allergy/AdvReac Type Severity Reaction Status Date / Time Sulfa (Sulfonamide Allergy Unknown/Unable Verified 11/23/14 16:00 Antibiotics) to obtain Medical,Surgical,& Family Hx - Medical History Cardio: History of: DC, Pacemaker Endocrine: History of: Diabetes Mellitus (NIDDM) - Surgical History Cardiac Surgeries: Sugical HX of: Cardiac Surgery, Carotid Endarterectomy Thoracic Surgeries: Patient denies;: Organ Transplant HEENT Surgeries: Surgical HX of: Carotid Endarterectomy - Family History Family History: Reports;: Family Diabetes, Family Heart Disease, Family Hypertension - Social History Smoking Status: Never smoker Frequency of Alcohol Use: None Type of Drug Use: None Review of Systems 12 point system: reviewed and no additional remarkable complaints except as stated Exam - Vital Signs Vital signs: Period Temp Pulse Resp BP Sys/[place] Pulse Ox Last 24 Hr 97.4 F-97.9 F 62-97 20-24 119-135/56-72 91-98 Exam: Gen.: Alert and oriented x3. ENT: Pupils equal round reactive to light. EOMs intact. Mucous membranes moist. Neck: Supple. No JVD or bruit. Cardiovascular: Regular rate and rhythm. 2/6 systolic murmur Lungs: Decreased breath sounds right base. Left clear Abdomen: Soft. Nontender. Positive bowel sounds. No organomegaly Extremities: No edema Results - Labs CBC & BMP: 09/18/16 05:11 09/18/16 05:11 Assessment and Plan (1) Acute on chronic renal failure Status: Acute Assessment and plan: 86-year-old man with: * CRF stage III. * ARF. Creatinine has risen after IV contrast. Diuresis may have also contributed. He is on no nephrotoxic medications. Fluid will be restricted. * Aortic stenosis, severe. Preserved LV function * CAD. Prior CABG * Diabetes mellitus * Hypertension Current Visit: Yes (2) Near syncope Status: Acute Current Visit: Yes (3) Pleural effusion Status: Acute Current Visit: Yes (4) Coronary artery disease Status: Chronic Current Visit: Yes Qualifiers: Coronary Disease-Associated Artery/Lesion type: [place] artery [place] vs. transplanted heart: [place] heart Associated angina: without angina Qualified Code(s): I25.10 - Atherosclerotic heart disease of [place] coronary artery without angina pectoris (5) Diabetes mellitus Status: Chronic Current Visit: Yes Qualifiers: Diabetes mellitus type: type 2 (6) Hypertension Status: Chronic Current Visit: Yes Qualifiers: Hypertension type: essential hypertension Qualified Code(s): I10 - Essential (primary) hypertension (7) Severe aortic stenosis Status: Chronic Current Visit: Yes (8) Bradycardia Status: Resolved Current Visit: Yes
[2016-09-18] MEDS: LORATADINE 10 MG TABLET PO PRN (23:57)
[2016-09-18] MEDS: diphenhydrAMINE CAP 25 MG CAPSULE PO PRN (23:57)
[2016-09-19] MEDS: IPRATROPIUM 500 MCG/2.5 ML NEB RESP TX SCH ×4 (00:56→20:13)
[2016-09-19 05:24] LABS: Basophils % 0.1 % (0.0-0.8); Eosinophils % 0.2 % (0.00-10.9); Hematocrit 30.6 VOL% (42.0-52.0); Hemoglobin 10.2 GM/DL (14.0-18.0); Immature Granulocytes Absolute 0.13 #; Lymphocytes # 0.5 10*3/uL (1.4-4.0); Lymphocytes % 4.3 % (21.2-54.2); Mean Corpuscular HGB Conc 33.3 GM/DL (32-36); Mean Corpuscular Hemoglobin 30 PG (27-34); Mean Platelet Volume 11.5 FL (9.6-12.0); Monocytes # 0.8 10*3/uL (0.11-0.8); Monocytes % 6.8 % (1.7-12.7); Neutrophils # 10.9 10*3/uL (1.4-7.4); Neutrophils % 87.6 % (38.7-73.9); Platelet Count 181 T/CUMM (130-400); Red Cell Distribution Width 13.4 % (9.3-17.3); White Blood Count 12.4 T/CUMM (4-12)
[2016-09-19 05:50] LABS: Band Neutrophils 1 % (0-10); Hypochromasia 1+; Lymphocytes 4 % (20-55); Platelet Estimate Normal; Segmented Neutrophils 90 % (50-85); Total Cells Counted 100
[2016-09-19 05:57] LABS: Calcium 9.2 MG/DL (8.5-10.1); Magnesium 3.3 MG/DL (1.8-2.4); Osmolality,Calculated 308.5 MOS/KG (273-304); Potassium 4.7 MMOL/L (3.5-5.1)
[2016-09-19] MEDS: NIACIN 500 MG TABLET PO SCH (08:53)
[2016-09-19] MEDS: GLIMEPIRIDE 4 MG TABLET PO SCH ×2 (08:53→16:21)
[2016-09-19] MEDS: METOPROLOL TARTRATE 25 MG TABLET PO SCH ×2 (08:54→20:50)
[2016-09-19] MEDS: ASPIRIN EC 81 MG TABLET PO SCH (08:54)
[2016-09-19] MEDS: INSULIN GLARGINE 100 UNIT/ML SUBCUT SCH (08:54)
[2016-09-19] MEDS: FLUTICASONE 50 MCG NASAL SPRAY 16 GM BOTTLE BOTH NARES SCH ×2 (08:54→20:51)
[2016-09-19] MEDS: PANTOPRAZOLE 40 MG TABLET PO SCH (08:54)
[2016-09-19] MEDS: INSULIN LISPRO 100 UNIT/ML SUBCUT SCH ×4 (08:55→20:51)
[2016-09-19] MEDS: CITRIC ACID/SODIUM CITRATE 30 ML UDCUP PO SCH ×3 (09:14→20:51)
[2016-09-19] MEDS: cefTRIAXone 1,000 MG in SODIUM CHLORIDE 0.9% 100 ML IV SCH (09:14)
[2016-09-19] MEDS: CIPROFLOXACIN 250 MG TABLET PO SCH ×2 (09:14→20:50)
--- NOTE | 2016-09-19 09:56 | Pulmonology Progress Note ---
Pulmonary - PN: Subj Interval history: This 86-year-old white male has congestive heart failure due to aortic stenosis. Also has atherosclerotic heart disease with previous coronary bypass surgery. Needs to have his IV aortic valve replaced. He has a right pleural effusion. His chest x-ray looks a little bit better today as far as the pulmonary edema is concerned. However we gave him Lasix yesterday and his creatinine has risen a little more. I think we would do best to get the right pleural fluid drained in preparation for surgery. Will ask interventional radiology to do this since it appears to be loculated laterally and would be safely done with ultrasound guidance. Patient is not sleeping well. Should tolerate some Ativan at bedtime. Quite anxious. I should note that the reason he has pleural fluid on the right and not the left is that he has had a previous left decortication. 09/18/2016 we have tried to diurese him and it has not been very successful. His creatinine has risen. He had a right thoracentesis with removal of 800 mL of fluid but he had his CT scan yesterday still showed significant right effusion. The pleural fluid is a transudate. Certainly think this is due to congestive heart failure, due to his aortic stenosis. It will be very difficult to treat his heart failure without the valve being replaced. However he is at high risk for surgery given his fragile state and acute kidney injury with Lasix and low cardiac output. Will ask nephrology to see if they can help us with this. Patient at present is about the same as far as her shortness of breath. He is empirically on antibiotics. 09/19/2016 he continues to complain of dyspnea. Primarily says he has trouble breathing through his nose. He is on 2 different nose sprays in his nasal passages appear open on my exam. I think is primarily short of breath related to his congestive heart failure/aortic stenosis. Renal function is a little better. Perhaps getting further out from contrast studies is helping. We do need to try to diurese him further. Nephrology is following as well. Exam (Progress Note) - Constitutional Vitals: Period Temp Pulse Resp BP Sys/[place] Pulse Ox Last 24 Hr 97.5 F-97.9 F 63-97 18-24 120-137/58-66 92-98 Exam: Patient's alert sitting on the side of the bed somewhat anxious. Vital signs normal. Wearing ventimask oxygen. Pupils react to light. Throat clear. Neck supple no bruits. Chest shows a few basilar crackles and some dullness at the right base. Heart normal rate rhythm grade 2/6 systolic murmur at right base. Abdomen soft nontender no masses. Bowel sounds present. Extremities no clubbing or cyanosis. Trace of edema. Calves nontender. Little change from yesterday. Results - Labs CBC & BMP: 09/19/16 03:43 09/19/16 03:43 Lab Results: I have reviewed the past 24 hour labs Assessment and Plan (1) Syncope Status: Acute Assessment and plan: Syncope likely due to cardiac causes related to his aortic stenosis. 09/15/16 likely due to his aortic stenosis. 09/18/2016 again the syncope is likely due to his aortic stenosis. Current Visit: Yes (2) Chronic kidney disease Status: Chronic Assessment and plan: Creatinine is 2.1. He has had some renal insufficiency for quite some time related to vascular disease and diabetes. At present I think he is ahead on fluid. I will bump him with Lasix. 09/15/16 creatinine up to 2.3 after a dose of Lasix. Afraid to diurese any more vigorously at present. Asking interventional radiology to drain the loculated right effusion. This should help getting prepped for aortic valve replacement. 09/18/2016 creatinine up to 2.8. Difficulty mobilizing right pleural effusion fluid 09/19/2016 renal function is a little better today. Creatinine down to 2.4. May have had a bump in creatinine related to his contrast last week. Current Visit: Yes (3) Coronary artery disease Status: Chronic Assessment and plan: Previous coronary bypass surgery with additional findings at catheterization this admission. Current Visit: Yes Qualifiers: Coronary Disease-Associated Artery/Lesion type: [place] artery [place] vs. transplanted heart: [place] heart Associated angina: without angina Qualified Code(s): I25.10 - Atherosclerotic heart disease of [place] coronary artery without angina pectoris (4) Pulmonary hypertension Status: Chronic Assessment and plan: This was not quantified on the echo but is likely to be secondary to his left heart disease with aortic stenosis. 09/15/16 this should be due to his aortic stenosis and congestive heart failure. 09/18/2016 secondary to his left heart disease. Current Visit: Yes (5) Severe aortic stenosis Status: Chronic Assessment and plan: Has severe aortic stenosis by echo and catheterization. Likely the possible cause of his congestive heart failure and pulmonary hypertension. 09/15/16 hopefully can have surgery when we get him tuned up. 09/18/2016 will need surgery if he can tolerate it. 09/19/2016 hopefully we can get him tuned up where he can tolerate AVR. Current Visit: Yes (6) Diabetes mellitus Status: Chronic Assessment and plan: Has some hyperglycemia. Adding sliding scale. 09/15/16 glucoses in the 140-200 range. 09/18/2016 glucoses look okay. 09/19/2016 glucoses are fairly well controlled. Current Visit: Yes Qualifiers: Diabetes mellitus type: type 2 (7) Acute bronchitis Status: Acute Assessment and plan: Based on the change in sputum color and elevated white count 16,000 think is reasonable to cover him with antibiotics for this. Will use Atrovent for bronchodilators. 09/15/16 empirically on antibiotics and Atrovent. I think his main problem respiratory escobar is congestive heart failure related to his aortic stenosis. Would not delay surgery for bronchitis in this situation 09/18/2016 on empiric antibiotics. 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 It is sensitive to Cipro. I will change him to oral Cipro. Current Visit: Yes
[2016-09-19] MEDS ORDERED: FUROSEMIDE 40 MG/4 ML VIAL IV ONE (11:50)
--- NOTE | 2016-09-19 13:27 | Cardiothoracic Progress Note ---
Cardiothoracic Subjective Interval history: Patient has been stable but does remain short of breath. Renal function has improved slightly with a creatinine of 2.4 today down from a high of 2.8. 2.4 is close to his baseline level. CT angiogram could not be obtained because of his renal function but I still think that if surgery is going to be contemplated he will need a CT angiogram to localize his internal mammary graft. He does not seem to be ready for surgical consideration at the present time so we have some time to wait for his renal function and hopefully to improve even more. We will discuss this with you as to whether we should continue to plan on eventual surgery for AVR CABG or whether catheter facilitated valve replacement and coronary angioplasty should be considered instead. Continue present course for right now. Exam (Progress Note) - Constitutional Vitals: Period Temp Pulse Resp BP Sys/H[place]ado Pulse Ox Last 24 Hr 97.5 F-98.0 F 63-97 18-25 117-137/50-62 92-98 Result/EKG - Labs CBC & BMP: 09/19/16 03:43 09/19/16 03:43 Labs: Laboratory Results - last 24 hr 09/18/16 09/18/16 09/19/16 17:09 21:51 03:43 WBC 12.4 H RBC 3.40 L Hgb 10.2 L Hct 30.6 L MCV 90.0 MCH 30 MCHC 33.3 RDW 13.4 Plt Count 181 MPV 11.5 Neut % (Auto) 87.6 H Lymph % (Auto) 4.3 L [place] % (Auto) 6.8 Eos % (Auto) 0.2 Baso % (Auto) 0.1 Neut # (Auto) 10.9 H Lymph # (Auto) 0.5 L [place] # (Auto) 0.8 Eos # (Auto) 0.0 Baso # (Auto) 0.0 Total Counted 100 Immature Gran % 1.0 Nucleated RBC % 0.0 Immature Gran # 0.13 Segmented Neutrophils 90 H Band Neutrophils 1 Lymphocytes 4 L Monocytes 5 Nucleated RBCs # 0.00 Platelet Estimate Normal Hypochromasia 1+ Sodium Potassium Chloride Carbon Dioxide Anion Gap BUN Creatinine GFR Calculation BUN/Creatinine Ratio Glucose POC Glucose 209 H 135 H Calculated Osmolality Calcium Magnesium 09/19/16 09/19/16 09/19/16 03:43 08:00 11:49 WBC RBC Hgb Hct MCV MCH MCHC RDW Plt Count MPV Neut % (Auto) Lymph % (Auto) [place] % (Auto) Eos % (Auto) Baso % (Auto) Neut # (Auto) Lymph # (Auto) [place] # (Auto) Eos # (Auto) Baso # (Auto) Total Counted Immature Gran % Nucleated RBC % Immature Gran # Segmented Neutrophils Band Neutrophils Lymphocytes Monocytes Nucleated RBCs # Platelet Estimate Hypochromasia Sodium 139 Potassium 4.7 Chloride 100 Carbon Dioxide 27 Anion Gap 16.7 H BUN 89 H D Creatinine 2.40 H GFR Calculation 26 BUN/Creatinine Ratio 37.00 H Glucose 188 H POC Glucose 238 H 379 H Calculated Osmolality 308.5 H Calcium 9.2 Magnesium 3.3 H Quality Measures - Stroke Onset of Symptoms Date: 09/05/16 Onset of Symptoms Time: 15:30 Symptom Onset Unknown: No
--- NOTE | 2016-09-19 17:28 | Cardiology Progress Note ---
Assessment and Plan - Time spent with patient Time spent with patient: Less than 30 minutes (1) Severe aortic stenosis Status: Chronic Assessment and plan: SEE PLAN OF CARE LISTED BELOW. Current Visit: Yes (2) Syncope Status: Acute Assessment and plan: SEE PLAN OF CARE LISTED BELOW Current Visit: Yes (3) Atrial flutter by electrocardiogram Status: Acute Assessment and plan: SEE PLAN OF CARE LISTED BELOW Current Visit: Yes (4) Bradycardia Status: Resolved Assessment and plan: SEE PLAN OF CARE LISTED BELOW Current Visit: Yes (5) Coronary artery disease Status: Chronic Assessment and plan: SEE PLAN OF CARE LISTED BELOW Current Visit: Yes Qualifiers: Coronary Disease-Associated Artery/Lesion type: [place] artery [place] vs. transplanted heart: [place] heart Associated angina: without angina Qualified Code(s): I25.10 - Atherosclerotic heart disease of [place] coronary artery without angina pectoris (6) Hypertension Status: Chronic Assessment and plan: SEE PLAN OF CARE LISTED BELOW Current Visit: Yes (7) Hyperlipidemia Status: Chronic Assessment and plan: SEE PLAN OF CARE LISTED BELOW Current Visit: Yes (8) Diabetes mellitus Status: Chronic Assessment and plan: SEE PLAN OF CARE LISTED BELOW Current Visit: Yes Qualifiers: Diabetes mellitus type: type 2 (9) Acute on chronic renal failure Status: Acute Assessment and plan: SEE PLAN OF CARE LISTED BELOW Current Visit: Yes (10) Leukocytosis Status: Acute Assessment and plan: SEE PLAN OF CARE LISTED BELOW Current Visit: Yes (11) Epistaxis Status: Acute Assessment and plan: SEE PLAN OF CARE LISTED BELOW Current Visit: Yes (12) Pleural effusion Status: Acute Assessment and plan: SEE PLAN OF CARE LISTED BELOW. 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 GOLDSMITH Mr. Frazier is a 86 year old male with a history of coronary artery disease, hypertension, hyperlipidemia, type 2 diabetes mellitus, chronic kidney disease. He is status post coronary artery bypass grafting August 06 2001 with SINGH to the LAD and vein graft to the circumflex marginal and right coronary arteries. He is status post right carotid endarterectomy July 03, 2002. He was admitted to the hospital after an episode of syncope and prolonged weakness. He was initially in atrial flutter, bradycardia, junctional rhythm, no atrial flutter, with normal conduction. He was on no zackery blocking agents. An echocardiogram was performed with showed severe aortic stenosis with preserved ejection fraction. He had some trivial troponin elevation in the setting of an elevated creatinine. Urine toxicology was negative. 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 Mr. Frazier has had trouble with dyspnea and decreased O2 saturations past couple of days. Pulmonology has seen him in consultation and due to a right pleural effusion, he underwent ultrasound-guided thoracentesis September 15 where he was drained of 800 cc of straw-colored, blood-tinged fluid. He has been stable but remains short of breath. He has been seen by CV surgery and will still need a CT angiogram to localize his KAITY if surgery is to be contemplated. At this time, he does not seem ready for surgical consideration. ASSESSMENT/PLAN: 1. SEVERE AORTIC STENOSIS - Dr. Mehta has been consulted and tentatively plans perform AVR next week. Echocardiogram showed severe aortic stenosis and cardiac catheterization root revealed patency of an internal mammary graft and circumflex graft although the circumflex graft has an ostial stenosis. The right coronary graft is occluded but the [place] right coronary does not have significant obstructive lesions. The procedure is made somewhat more risky by his age, renal dysfunction, and presence of a patent internal mammary graft. CV Surgery plans to try to localize this graft more clearly with CT angiogram at some point when creatinine improves. . 2. SYNCOPE - Carotid doppler ultrasound reveals right ICA with 50-69% stenosis. CT of the brain was negative. This could have been related to bradycardia or his aortic stenosis. Neurology has seen him in consultation and does not feel he has suffered a TIA at this time. 3. ATRIAL FLUTTER - CHADSVASC 5. Anticoagulation has been held pending surgery next week. He has been started on a beta demarco and has tolerated this well. 4. BRADYCARDIA - Resolved. Will continue to monitor. 5. CORONARY ARTERY DISEASE - He is status post coronary artery bypass grafting August 06 2001 with SINGH to the LAD and vein graft to the circumflex marginal and right coronary arteries. Cardiac catheterization on 09/13/2016 revealed severe [place] three-vessel and ostial left main coronary artery disease with 2 of 3 bypass grafts patent. There is an ostial pinch in the saphenous vein graft to the obtuse marginal branch. The right coronary artery graft is occluded but the right coronary artery does not have any significant high-grade disease at this time. 6. HYPERTENSION -this is currently well controlled on the current therapy. Will continue to monitor and adjust accordingly. 7. HYPERLIPIDEMIA - Continue lipid lowering agent. FLP revealed triglycerides 98 , cholesterol 127, LDL 60, HDL 54. 8. DIABETES - He is on accuchecks with sliding scale insulin. Continue current plan of care. 9. ACUTE ON CHRONIC RENAL FAILURE - Will continue to monitor BMP. Risk for perioperative complications was discussed with the patient. Creatinine continued to rise and nephrology was consulted. He did have a CT with contrast on 09/15/16. Creatinine is down to 2.4 today. 10. LEUKOCYTOSIS - He has been afebrile. He is receiving empiric treatment with IV antibiotics. Preliminary report sputum culture resulted gram-positive cocci , he is now on droplet and contact precautions for MRSA in the sputum. Blood cultures negative. His Levaquin dose was adjusted for his renal insufficiency. 11. EPISTAXIS - Required packing by ENT last Sunday. He has had no further episodes since. H&H stable. We are currently continuing aspirin and Eliquis. This could be the etiology of the patient's blood-tinged sputum. He has not had any recurrent episodes. 12. PLEURAL EFFUSION - Status post thoracentesis September 15. CT scan yesterday still revealed significant right effusion. Patient is being seen by pulmonary. They feel that this is secondary to patient's congestive heart failure due to his aortic stenosis. It is difficult to diurese patient at this time as patient's creatinine continues to rise, 2.8 today. We will continue to monitor this with daily BMP. Nephrology has been consulted to further assist. Further plan and addendum to follow by Dr. Goldsmith. Exam (Progress Note) - Constitutional Vitals: Period Temp Pulse Resp BP Sys/[place] Pulse Ox Last 24 Hr 97.4 F-98.0 F 63-97 18-25 117-137/48-62 92-98 Exam: General: Appears chronically ill. HEENT: PERRL, normocephalic, atraumatic. Mucous membranes moist. No jaundice noted. Neck: No JVD/HJR, no thyromegaly or lymphadenopathy noted. Cardiac: Atrial flutter with controlled ventricular rate. Systolic murmur consistent with aortic stenosis. Lungs: Scattered rhonchi. Requiring oxygen Via Ventimask. Abdomen: Soft, bowel sounds normoactive. Nontender and nondistended. No abdominal bruit or thrill noted. No masses noted. Extremities: No clubbing, cyanosis noted. No edema noted. Upper extremity pulses 2+. Lower extremity pulses 2+. Capillary refill less than 3 seconds. Skin: No unusual lesions or rashes. No skin breakdown appreciated. Neuro: Awake, alert and oriented 3. Moves all extremities well without hemiparesis or paralysis. No essential tremor is appreciated. Result/EKG - Labs CBC & BMP: 09/19/16 03:43 09/19/16 03:43 Lab Results: I have reviewed the past 24 hour labs Labs: Laboratory Results - last 24 hr 09/18/16 09/18/16 09/19/16 17:09 21:51 03:43 WBC 12.4 H RBC 3.40 L Hgb 10.2 L Hct 30.6 L MCV 90.0 MCH 30 MCHC 33.3 RDW 13.4 Plt Count 181 MPV 11.5 Neut % (Auto) 87.6 H Lymph % (Auto) 4.3 L [place] % (Auto) 6.8 Eos % (Auto) 0.2 Baso % (Auto) 0.1 Neut # (Auto) 10.9 H Lymph # (Auto) 0.5 L [place] # (Auto) 0.8 Eos # (Auto) 0.0 Baso # (Auto) 0.0 Total Counted 100 Immature Gran % 1.0 Nucleated RBC % 0.0 Immature Gran # 0.13 Segmented Neutrophils 90 H Band Neutrophils 1 Lymphocytes 4 L Monocytes 5 Nucleated RBCs # 0.00 Platelet Estimate Normal Hypochromasia 1+ Sodium Potassium Chloride Carbon Dioxide Anion Gap BUN Creatinine GFR Calculation BUN/Creatinine Ratio Glucose POC Glucose 209 H 135 H Calculated Osmolality Calcium Magnesium 09/19/16 09/19/16 09/19/16 03:43 08:00 11:49 WBC RBC Hgb Hct MCV MCH MCHC RDW Plt Count MPV Neut % (Auto) Lymph % (Auto) [place] % (Auto) Eos % (Auto) Baso % (Auto) Neut # (Auto) Lymph # (Auto) [place] # (Auto) Eos # (Auto) Baso # (Auto) Total Counted Immature Gran % Nucleated RBC % Immature Gran # Segmented Neutrophils Band Neutrophils Lymphocytes Monocytes Nucleated RBCs # Platelet Estimate Hypochromasia Sodium 139 Potassium 4.7 Chloride 100 Carbon Dioxide 27 Anion Gap 16.7 H BUN 89 H D Creatinine 2.40 H GFR Calculation 26 BUN/Creatinine Ratio 37.00 H Glucose 188 H POC Glucose 238 H 379 H Calculated Osmolality 308.5 H Calcium 9.2 Magnesium 3.3 H 09/19/16 16:11 WBC RBC Hgb Hct MCV MCH MCHC RDW Plt Count MPV Neut % (Auto) Lymph % (Auto) [place] % (Auto) Eos % (Auto) Baso % (Auto) Neut # (Auto) Lymph # (Auto) [place] # (Auto) Eos # (Auto) Baso # (Auto) Total Counted Immature Gran % Nucleated RBC % Immature Gran # Segmented Neutrophils Band Neutrophils Lymphocytes Monocytes Nucleated RBCs # Platelet Estimate Hypochromasia Sodium Potassium Chloride Carbon Dioxide Anion Gap BUN Creatinine GFR Calculation BUN/Creatinine Ratio Glucose POC Glucose 264 H Calculated Osmolality Calcium Magnesium - EKG EKG results: interpreted by me (atrial flutter) Quality Measures - Stroke Onset of Symptoms Date: 09/05/16 Onset of Symptoms Time: 15:30 Symptom Onset Unknown: No
--- NOTE | 2016-09-19 19:31 | Nephrology Progress Note ---
Nephrology - PN: Subj Interval history: He reports more shortness of breath today. He denies chest pain. Exam (PN)-Nephrology - Vital Signs Vital signs: Period Temp Pulse Resp BP Sys/Hurtado Pulse Ox Last 24 Hr 97.4 F-98.0 F 63-97 18-25 117-137/48-62 92-98 Exam: ENT: Normal Cardiovascular: Regular rate and rhythm. No murmur rub or gallop Lungs: Clear left. Dullness on right Extremities: No edema - Lab 09/19/16 03:43 09/19/16 03:43 Most recent lab results ABG pH 7.465 (7.35-7.45) H 09/14/16 06:00 ABG pCO2 28.8 MM HG (35-48) L 09/14/16 06:00 ABG pO2 64.1 MM HG (80-95) L 09/14/16 06:00 ABG HCO3 20.3 MMOL/L (20-26) 09/14/16 06:00 ABG O2 Saturation 93.0 % (95-100) L 09/14/16 06:00 Calcium 9.2 MG/DL (8.5-10.1) 09/19/16 03:43 Magnesium 3.3 MG/DL (1.8-2.4) H 09/19/16 03:43 Assessment and Plan (1) Acute on chronic renal failure Status: Acute Assessment and plan: 86-year-old man with: * CRF stage III. * ARF. Renal function slightly better today. * S OB. This is multifactorial. Although he has had thoracentesis, loculated fluid is still present on CT. I have given him IV Lasix this morning. This may cause creatinine to rise somewhat but he is more symptomatic today. This will help with intravascular volume but will not affect pleural effusion. I believe thoracentesis may help his breathing quicker. * Aortic stenosis, severe. Preserved LV function * CAD. Prior CABG * Diabetes mellitus * Hypertension Current Visit: Yes (2) Near syncope Status: Acute Current Visit: Yes (3) Pleural effusion Status: Acute Current Visit: Yes (4) Coronary artery disease Status: Chronic Current Visit: Yes Qualifiers: Coronary Disease-Associated Artery/Lesion type: [place] artery [place] vs. transplanted heart: [place] heart Associated angina: without angina Qualified Code(s): I25.10 - Atherosclerotic heart disease of [place] coronary artery without angina pectoris (5) Diabetes mellitus Status: Chronic Current Visit: Yes Qualifiers: Diabetes mellitus type: type 2 (6) Hypertension Status: Chronic Current Visit: Yes Qualifiers: Hypertension type: essential hypertension Qualified Code(s): I10 - Essential (primary) hypertension (7) Severe aortic stenosis Status: Chronic Current Visit: Yes (8) Bradycardia Status: Resolved Current Visit: Yes
[2016-09-19] MEDS: ATORVASTATIN 80 MG TABLET PO SCH (20:50)
[2016-09-19] MEDS: amLODIPine 10 MG TABLET PO SCH (20:50)
[2016-09-19] MEDS: diphenhydrAMINE CAP 25 MG CAPSULE PO PRN (20:50)
[2016-09-20] MEDS: IPRATROPIUM 500 MCG/2.5 ML NEB RESP TX SCH ×4 (00:26→20:51)
[2016-09-20 05:48] LABS: Basophils % 0.1 % (0.0-0.8); Eosinophils # 0.1 10*3/uL (0.0-0.87); Eosinophils % 0.6 % (0.00-10.9); Hematocrit 30.8 VOL% (42.0-52.0); Hemoglobin 10.4 GM/DL (14.0-18.0); Immature Granulocytes % 0.9 %; Lymphocytes # 0.8 10*3/uL (1.4-4.0); Lymphocytes % 6.8 % (21.2-54.2); Mean Corpuscular HGB Conc 33.8 GM/DL (32-36); Mean Corpuscular Hemoglobin 30 PG (27-34); Mean Corpuscular Volume 89.8 FL (87-102); Mean Platelet Volume 10.6 FL (9.6-12.0); Monocytes # 1.3 10*3/uL (0.11-0.8); Monocytes % 11.7 % (1.7-12.7); Neutrophils # 8.9 10*3/uL (1.4-7.4); Neutrophils % 79.9 % (38.7-73.9); Platelet Count 207 T/CUMM (130-400); Red Blood Count 3.43 MC/CUMM (3.8-5.5); Red Cell Distribution Width 13.5 % (9.3-17.3); White Blood Count 11.1 T/CUMM (4-12)
[2016-09-20 06:24] LABS: Albumin 2.9 G/DL (3.4-5.0); Bilirubin,Total 1.1 MG/DL (0.2-1.0); Calcium 9.2 MG/DL (8.5-10.1); Magnesium 3.4 MG/DL (1.8-2.4); Osmolality,Calculated 308.5 MOS/KG (273-304); Potassium 4.4 MMOL/L (3.5-5.1); Total Protein 6.5 G/DL (6.4-8.3)
--- NOTE | 2016-09-20 07:48 | XRay Report ---
XR chest 1V portable Indication: CHF Comparison: Chest x-ray dated September 18, 2016 Technique: Single frontal view of the chest. Findings: Continued cardiomegaly status post sternotomy. Mildly increased moderate right-sided pleural effusion. Continued small left pleural effusion. Interval increased coarse interstitial markings and hazy opacification of bilateral lung suggesting worsened pulmonary edema or pneumonia. Visualized osseous and surrounding soft tissue structures appear grossly unchanged. IMPRESSION: As above. PROCEDURE INTERPRETED AT [facility] DEPARTMENT OF RADIOLOGY Final Report Signed by: Dr Petr Wei
--- NOTE | 2016-09-20 08:42 | Pulmonology Progress Note ---
Pulmonary - PN: Subj Interval history: This 86-year-old white male has congestive heart failure due to aortic stenosis. Also has atherosclerotic heart disease with previous coronary bypass surgery. Needs to have his IV aortic valve replaced. He has a right pleural effusion. His chest x-ray looks a little bit better today as far as the pulmonary edema is concerned. However we gave him Lasix yesterday and his creatinine has risen a little more. I think we would do best to get the right pleural fluid drained in preparation for surgery. Will ask interventional radiology to do this since it appears to be loculated laterally and would be safely done with ultrasound guidance. Patient is not sleeping well. Should tolerate some Ativan at bedtime. Quite anxious. I should note that the reason he has pleural fluid on the right and not the left is that he has had a previous left decortication. 09/18/2016 we have tried to diurese him and it has not been very successful. His creatinine has risen. He had a right thoracentesis with removal of 800 mL of fluid but he had his CT scan yesterday still showed significant right effusion. The pleural fluid is a transudate. Certainly think this is due to congestive heart failure, due to his aortic stenosis. It will be very difficult to treat his heart failure without the valve being replaced. However he is at high risk for surgery given his fragile state and acute kidney injury with Lasix and low cardiac output. Will ask nephrology to see if they can help us with this. Patient at present is about the same as far as her shortness of breath. He is empirically on antibiotics. 09/19/2016 he continues to complain of dyspnea. Primarily says he has trouble breathing through his nose. He is on 2 different nose sprays in his nasal passages appear open on my exam. I think is primarily short of breath related to his congestive heart failure/aortic stenosis. Renal function is a little better. Perhaps getting further out from contrast studies is helping. We do need to try to diurese him further. Nephrology is following as well. 09/20/2016 patient feels a little better sitting up in the chair. However his chest x-ray shows that the right pleural effusion has increased in size. Having a difficult time diuresing him with his creatinine 2.8. Would recommend putting a pleural catheter in the right side to drain this. Hopefully this will help us prep him for possible aortic valve replacement. The pleural effusion is due to congestive heart failure, however they are having a difficult time diuresing him. Exam (Progress Note) - Constitutional Vitals: Period Temp Pulse Resp BP Sys/Hurtado Pulse Ox Last 24 Hr 97.4 F-98.1 F 63-67 18-24 117-138/48-70 93-98 Exam: Patient's alert sitting on the side of the bed somewhat anxious. Vital signs normal. Wearing ventimask oxygen. Pupils react to light. Throat clear. Neck supple no bruits. Chest shows a few basilar crackles and some dullness at the right base. Heart normal rate rhythm grade 2/6 systolic murmur at right base. Abdomen soft nontender no masses. Bowel sounds present. Extremities no clubbing or cyanosis. Trace of edema. Calves nontender. Results - Labs CBC & BMP: 09/20/16 05:29 09/20/16 05:29 Lab Results: I have reviewed the past 24 hour labs - Diagnostic Findings Procedure: Chest x-ray: image reviewed by me (Right pleural effusion is a little larger.) Assessment and Plan (1) Syncope Status: Acute Assessment and plan: Syncope likely due to cardiac causes related to his aortic stenosis. 09/15/16 likely due to his aortic stenosis. 09/18/2016 again the syncope is likely due to his aortic stenosis. 09/20/2016 no symptoms of postural syncope at this time Current Visit: Yes (2) Chronic kidney disease Status: Chronic Assessment and plan: Creatinine is 2.1. He has had some renal insufficiency for quite some time related to vascular disease and diabetes. At present I think he is ahead on fluid. I will bump him with Lasix. 09/15/16 creatinine up to 2.3 after a dose of Lasix. Afraid to diurese any more vigorously at present. Asking interventional radiology to drain the loculated right effusion. This should help getting prepped for aortic valve replacement. 09/18/2016 creatinine up to 2.8. Difficulty mobilizing right pleural effusion fluid 09/19/2016 renal function is a little better today. Creatinine down to 2.4. May have had a bump in creatinine related to his contrast last week. 09/20/2016 creatinine up to 2.8. Current Visit: Yes (3) Coronary artery disease Status: Chronic Assessment and plan: Previous coronary bypass surgery with additional findings at catheterization this admission. Current Visit: Yes Qualifiers: Coronary Disease-Associated Artery/Lesion type: [place] artery [place] vs. transplanted heart: [place] heart Associated angina: without angina Qualified Code(s): I25.10 - Atherosclerotic heart disease of [place] coronary artery without angina pectoris (4) Pulmonary hypertension Status: Chronic Assessment and plan: This was not quantified on the echo but is likely to be secondary to his left heart disease with aortic stenosis. 09/15/16 this should be due to his aortic stenosis and congestive heart failure. 09/18/2016 secondary to his left heart disease. 09/20/2016 this is due to his left heart disease. Current Visit: Yes (5) Severe aortic stenosis Status: Chronic Assessment and plan: Has severe aortic stenosis by echo and catheterization. Likely the possible cause of his congestive heart failure and pulmonary hypertension. 09/15/16 hopefully can have surgery when we get him tuned up. 09/18/2016 will need surgery if he can tolerate it. 09/19/2016 hopefully we can get him tuned up where he can tolerate AVR. 09/20/2016 aortic valve surgery is indicated when we can get him tuned up for it. Current Visit: Yes (6) Diabetes mellitus Status: Chronic Assessment and plan: Has some hyperglycemia. Adding sliding scale. 09/15/16 glucoses in the 140-200 range. 09/18/2016 glucoses look okay. 09/19/2016 glucoses are fairly well controlled. 09/20/2016 glucoses look better. Current Visit: Yes Qualifiers: Diabetes mellitus type: type 2 (7) Acute bronchitis Status: Acute Assessment and plan: Based on the change in sputum color and elevated white count 16,000 think is reasonable to cover him with antibiotics for this. Will use Atrovent for bronchodilators. 09/15/16 empirically on antibiotics and Atrovent. I think his main problem respiratory escobar is congestive heart failure related to his aortic stenosis. Would not delay surgery for bronchitis in this situation 09/18/2016 on empiric antibiotics. 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 It is sensitive to Cipro. I will change him to oral Cipro. 09/20/2016 I do not hear any rhonchi. He is on oral Cipro. Current Visit: Yes
[2016-09-20] MEDS: CITRIC ACID/SODIUM CITRATE 30 ML UDCUP PO SCH ×3 (08:50→22:20)
[2016-09-20] MEDS: INSULIN GLARGINE 100 UNIT/ML SUBCUT SCH (08:51)
[2016-09-20] MEDS: INSULIN LISPRO 100 UNIT/ML SUBCUT SCH ×4 (08:51→22:19)
[2016-09-20] MEDS: NIACIN 500 MG TABLET PO SCH (08:52)
[2016-09-20] MEDS: METOPROLOL TARTRATE 25 MG TABLET PO SCH ×2 (08:52→22:07)
[2016-09-20] MEDS: GLIMEPIRIDE 4 MG TABLET PO SCH ×2 (08:52→16:38)
[2016-09-20] MEDS: ASPIRIN EC 81 MG TABLET PO SCH (08:52)
[2016-09-20] MEDS: CIPROFLOXACIN 250 MG TABLET PO SCH ×2 (08:52→22:20)
[2016-09-20] MEDS: PANTOPRAZOLE 40 MG TABLET PO SCH (08:52)
[2016-09-20] MEDS: DOCUSATE SODIUM 100 MG CAPSULE PO PRN (08:52)
[2016-09-20] MEDS: LORATADINE 10 MG TABLET PO PRN (08:52)
[2016-09-20] MEDS: FLUTICASONE 50 MCG NASAL SPRAY 16 GM BOTTLE BOTH NARES SCH ×2 (08:53→22:20)
--- NOTE | 2016-09-20 12:26 | XRay Report ---
Exam: XR chest post procedure Indication: Persistent right pleural effusion status post prior thoracentesis last week, now status post chest tube placement Comparison study: 09/20/2016 at 550 a.m. Findings: Right-sided chest tube is now noted in position from a posterior approach. The moderate-large right pleural effusion and right posterior basilar atelectatic changes are again noted. There is no pneumothorax. Cardiac silhouette and mediastinal contours appear stable from prior. Median sternotomy wiring is again noted. Impression: Right-sided chest tube now in position. No complication following chest tube placement. Moderate to large right-sided pleural effusion is noted. PROCEDURE INTERPRETED AT [facility] DEPARTMENT OF RADIOLOGY Final Report Signed by: Yuniel Sow
--- NOTE | 2016-09-20 12:34 | Post Interventional Procedure ---
Pre-op diagnosis: persistent right plerual effusion Post-op diagnosis: same Procedure: Right posterior chest 8 Fr pigtail catheter placement Contrast: none Flouroscopy: none Radiologist: Yuniel Sow Anesthesia: local Specimens: none sent Estimated blood loss: none Complications: none Condition: stable Description/Findings: U/s guided right chest tube placed with u/s guidance with no issues Assessment and Plan - Time spent with patient Time spent with patient: Less than 30 minutes
--- NOTE | 2016-09-20 12:39 | Ultrasound Report ---
Exam: ULTRASOUND-GUIDED THORACENTESIS Clinical history: History of recurrent right pleural effusion. Physician: Dr. Sow. Procedure: Informed consent was obtained prior to the procedure. A formal timeout was performed. Maximum sterile barrier technique was used. A partially loculated right sided pleural effusion was identified with ultrasound. The right was prepped and draped in sterile fashion. 1% lidocaine was used to anesthetize the skin and subcutaneous tissues. Under sonographic guidance, an 8 [place] pigtail catheter were advanced into the effusion using ultrasound guidance. A captured sonographic image demonstrates positioning of the needle within the targeted pleural fluid. The catheter was left to a drainage bag. A bandage was placed at the puncture site. The patient tolerated the procedure well. Chest radiograph is pending. Impression: 1. Technically successful ultrasound guided right thoracentesis as detailed above. 2. Post procedure chest radiograph is pending. PROCEDURE INTERPRETED AT [facility] DEPARTMENT OF RADIOLOGY Final Report Signed by: Yuniel Sow
--- NOTE | 2016-09-20 18:08 | Cardiology Progress Note ---
Assessment and Plan - Time spent with patient Time spent with patient: Less than 30 minutes (1) Severe aortic stenosis Status: Chronic Assessment and plan: SEE PLAN OF CARE LISTED BELOW. Current Visit: Yes (2) Syncope Status: Acute Assessment and plan: SEE PLAN OF CARE LISTED BELOW Current Visit: Yes (3) Atrial flutter by electrocardiogram Status: Acute Assessment and plan: SEE PLAN OF CARE LISTED BELOW Current Visit: Yes (4) Bradycardia Status: Resolved Assessment and plan: SEE PLAN OF CARE LISTED BELOW Current Visit: Yes (5) Coronary artery disease Status: Chronic Assessment and plan: SEE PLAN OF CARE LISTED BELOW Current Visit: Yes Qualifiers: Coronary Disease-Associated Artery/Lesion type: [place] artery [place] vs. transplanted heart: [place] heart Associated angina: without angina Qualified Code(s): I25.10 - Atherosclerotic heart disease of [place] coronary artery without angina pectoris (6) Hypertension Status: Chronic Assessment and plan: SEE PLAN OF CARE LISTED BELOW Current Visit: Yes (7) Hyperlipidemia Status: Chronic Assessment and plan: SEE PLAN OF CARE LISTED BELOW Current Visit: Yes (8) Diabetes mellitus Status: Chronic Assessment and plan: SEE PLAN OF CARE LISTED BELOW Current Visit: Yes Qualifiers: Diabetes mellitus type: type 2 (9) Acute on chronic renal failure Status: Acute Assessment and plan: SEE PLAN OF CARE LISTED BELOW Current Visit: Yes (10) Leukocytosis Status: Acute Assessment and plan: SEE PLAN OF CARE LISTED BELOW Current Visit: Yes (11) Epistaxis Status: Acute Assessment and plan: SEE PLAN OF CARE LISTED BELOW Current Visit: Yes (12) Pleural effusion Status: Acute Assessment and plan: SEE PLAN OF CARE LISTED BELOW. 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 GOLDSMITH Mr. Frazier is a 86 year old male with a history of coronary artery disease, hypertension, hyperlipidemia, type 2 diabetes mellitus, chronic kidney disease. He is status post coronary artery bypass grafting August 06 2001 with SINGH to the LAD and vein graft to the circumflex marginal and right coronary arteries. He is status post right carotid endarterectomy July 03, 2002. He was admitted to the hospital after an episode of syncope and prolonged weakness. He was initially in atrial flutter, bradycardia, junctional rhythm, no atrial flutter, with normal conduction. He was on no zackery blocking agents. An echocardiogram was performed with showed severe aortic stenosis with preserved ejection fraction. He had some trivial troponin elevation in the setting of an elevated creatinine. Urine toxicology was negative. 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 Mr. Frazier has had trouble with dyspnea and decreased O2 saturations past couple of days. Pulmonology has seen him in consultation and due to a right pleural effusion, he underwent ultrasound-guided thoracentesis September 15 where he was drained of 800 cc of straw-colored, blood-tinged fluid. He has been seen by CV surgery and will still need a CT angiogram to localize his KAITY if surgery is to be contemplated. At this time, he does not seem ready for surgical consideration. He underwent chest tube placement for recurrent pleural effusion today. He looks much better this afternoon than he has in the past several days. He is sitting up in the chair and reports he is breathing much more comfortably now. ASSESSMENT/PLAN: 1. SEVERE AORTIC STENOSIS - Dr. Mehta has been consulted and tentatively plans perform AVR next week. Echocardiogram showed severe aortic stenosis and cardiac catheterization root revealed patency of an internal mammary graft and circumflex graft although the circumflex graft has an ostial stenosis. The right coronary graft is occluded but the [place] right coronary does not have significant obstructive lesions. The procedure is made somewhat more risky by his age, renal dysfunction, and presence of a patent internal mammary graft. CV Surgery plans to try to localize this graft more clearly with CT angiogram at some point when creatinine improves. . 2. SYNCOPE - Carotid doppler ultrasound reveals right ICA with 50-69% stenosis. CT of the brain was negative. This could have been related to bradycardia or his aortic stenosis. Neurology has seen him in consultation and does not feel he has suffered a TIA at this time. 3. ATRIAL FLUTTER - CHADSVASC 5. Anticoagulation has been held pending surgery next week. He has been started on a beta demarco and has tolerated this well. 4. BRADYCARDIA - Resolved. Will continue to monitor. 5. CORONARY ARTERY DISEASE - He is status post coronary artery bypass grafting August 06 2001 with SINGH to the LAD and vein graft to the circumflex marginal and right coronary arteries. Cardiac catheterization on 09/13/2016 revealed severe [place] three-vessel and ostial left main coronary artery disease with 2 of 3 bypass grafts patent. There is an ostial pinch in the saphenous vein graft to the obtuse marginal branch. The right coronary artery graft is occluded but the right coronary artery does not have any significant high-grade disease at this time. 6. HYPERTENSION -this is currently well controlled on the current therapy. Will continue to monitor and adjust accordingly. 7. HYPERLIPIDEMIA - Continue lipid lowering agent. FLP revealed triglycerides 98 , cholesterol 127, LDL 60, HDL 54. 8. DIABETES - He is on accuchecks with sliding scale insulin. Continue current plan of care. 9. ACUTE ON CHRONIC RENAL FAILURE - Will continue to monitor BMP. Risk for perioperative complications was discussed with the patient. Creatinine continued to rise and nephrology was consulted. He did have a CT with contrast on 09/15/16. Creatinine is down to 2.4 today. 10. LEUKOCYTOSIS - He has been afebrile. He is receiving empiric treatment with IV antibiotics. Preliminary report sputum culture resulted gram-positive cocci , he is now on droplet and contact precautions for MRSA in the sputum. Blood cultures negative. His Levaquin dose was adjusted for his renal insufficiency. 11. EPISTAXIS - Required packing by ENT last Sunday. He has had no further episodes since. H&H stable. We are currently continuing aspirin and Eliquis. This could be the etiology of the patient's blood-tinged sputum. He has not had any recurrent episodes. 12. PLEURAL EFFUSION - Status post thoracentesis September 15. CT scan yesterday still revealed significant right effusion. Patient is being seen by pulmonary. They feel that this is secondary to patient's congestive heart failure due to his aortic stenosis. It is difficult to diurese patient at this time as patient's creatinine continues to rise, 2.8 today. We will continue to monitor this with daily BMP. Nephrology has been consulted to further assist. He underwent right sided chest tube placement by interventional radiology today for persistent right pleural effusion and tolerated this well. He has some soreness at the site but refuses pain medications including Tylenol. Further plan and addendum to follow by Dr. Goldsmith. Exam (Progress Note) - Constitutional Vitals: Period Temp Pulse Resp BP Sys/Hurtado Pulse Ox Last 24 Hr 97.6 F-98.3 F 64-89 12-200 113-138/48-70 87-100 Exam: General: Appears chronically ill. HEENT: PERRL, normocephalic, atraumatic. Mucous membranes moist. No jaundice noted. Neck: No JVD/HJR, no thyromegaly or lymphadenopathy noted. Cardiac: Atrial flutter with controlled ventricular rate. Systolic murmur consistent with aortic stenosis. Lungs: Few bibasilar crackles, overall improved from previous days. Requiring oxygen Via Ventimask. Abdomen: Soft, bowel sounds normoactive. Nontender and nondistended. No abdominal bruit or thrill noted. No masses noted. Extremities: No clubbing, cyanosis noted. No edema noted. Upper extremity pulses 2+. Lower extremity pulses 2+. Capillary refill less than 3 seconds. Skin: No unusual lesions or rashes. No skin breakdown appreciated. Neuro: Awake, alert and oriented 3. Moves all extremities well without hemiparesis or paralysis. No essential tremor is appreciated. Result/EKG - Labs CBC & BMP: 09/20/16 05:29 09/20/16 05:29 Lab Results: I have reviewed the past 24 hour labs Labs: Laboratory Results - last 24 hr 09/19/16 09/20/16 09/20/16 20:49 05:29 05:29 WBC 11.1 RBC 3.43 L Hgb 10.4 L Hct 30.8 L MCV 89.8 MCH 30 MCHC 33.8 RDW 13.5 Plt Count 207 MPV 10.6 Neut % (Auto) 79.9 H Lymph % (Auto) 6.8 L [place] % (Auto) 11.7 Eos % (Auto) 0.6 Baso % (Auto) 0.1 Neut # (Auto) 8.9 H Lymph # (Auto) 0.8 L [place] # (Auto) 1.3 H Eos # (Auto) 0.1 Baso # (Auto) 0.0 Immature Gran % 0.9 Nucleated RBC % 0.0 Immature Gran # 0.10 Nucleated RBCs # 0.00 Sodium 139 Potassium 4.4 Chloride 99 Carbon Dioxide 29 Anion Gap 15.4 H BUN 93 H Creatinine 2.60 H GFR Calculation 24 BUN/Creatinine Ratio 35.00 H Glucose 158 H POC Glucose 188 H Calculated Osmolality 308.5 H Calcium 9.2 Magnesium 3.4 H Total Bilirubin 1.10 H AST 28 ALT 27 Alkaline Phosphatase 80 Total Protein 6.5 Albumin 2.9 L Globulin 3.6 H Albumin/Globulin Ratio 0.8 L 09/20/16 09/20/16 09/20/16 07:26 11:32 17:03 WBC RBC Hgb Hct MCV MCH MCHC RDW Plt Count MPV Neut % (Auto) Lymph % (Auto) [place] % (Auto) Eos % (Auto) Baso % (Auto) Neut # (Auto) Lymph # (Auto) [place] # (Auto) Eos # (Auto) Baso # (Auto) Immature Gran % Nucleated RBC % Immature Gran # Nucleated RBCs # Sodium Potassium Chloride Carbon Dioxide Anion Gap BUN Creatinine GFR Calculation BUN/Creatinine Ratio Glucose POC Glucose 179 H 234 H 318 H Calculated Osmolality Calcium Magnesium Total Bilirubin AST ALT Alkaline Phosphatase Total Protein Albumin Globulin Albumin/Globulin Ratio - EKG EKG results: interpreted by me (atrial flutter) Quality Measures - Stroke Onset of Symptoms Date: 09/05/16 Onset of Symptoms Time: 15:30 Symptom Onset Unknown: No
[2016-09-20] MEDS: ATORVASTATIN 80 MG TABLET PO SCH (22:19)
[2016-09-20] MEDS: amLODIPine 10 MG TABLET PO SCH (22:20)
--- NOTE | 2016-09-20 23:05 | Nephrology Progress Note ---
Nephrology - PN: Subj Interval history: He has had a right pleural drainage tube placed this morning. He reports a marked improvement in his shortness of breath. No chest pain Exam (PN)-Nephrology - Vital Signs Vital signs: Period Temp Pulse Resp BP Sys/Hurtado Pulse Ox Last 24 Hr 97.6 F-98.3 F 64-89 12-200 113-138/48-70 87-100 Exam: ENT: Normal Cardiovascular: Regular rate and rhythm. 2/6 systolic murmur Lungs: No rales or wheezes. Right pleural drainage tube present Extremities: No edema - Lab 09/20/16 05:29 09/20/16 05:29 Most recent lab results ABG pH 7.465 (7.35-7.45) H 09/14/16 06:00 ABG pCO2 28.8 MM HG (35-48) L 09/14/16 06:00 ABG pO2 64.1 MM HG (80-95) L 09/14/16 06:00 ABG HCO3 20.3 MMOL/L (20-26) 09/14/16 06:00 ABG O2 Saturation 93.0 % (95-100) L 09/14/16 06:00 Calcium 9.2 MG/DL (8.5-10.1) 09/20/16 05:29 Magnesium 3.4 MG/DL (1.8-2.4) H 09/20/16 05:29 Assessment and Plan (1) Acute on chronic renal failure Status: Acute Assessment and plan: 86-year-old man with: * CRF stage III. * ARF. creatinine slightly higher today after diuretic yesterday * S OB. Markedly improved after drainage of pleural effusion * Aortic stenosis, severe. Preserved LV function * CAD. Prior CABG * Diabetes mellitus * Hypertension Current Visit: Yes (2) Near syncope Status: Acute Current Visit: Yes (3) Pleural effusion Status: Acute Current Visit: Yes (4) Coronary artery disease Status: Chronic Current Visit: Yes Qualifiers: Coronary Disease-Associated Artery/Lesion type: [place] artery [place] vs. transplanted heart: [place] heart Associated angina: without angina Qualified Code(s): I25.10 - Atherosclerotic heart disease of [place] coronary artery without angina pectoris (5) Diabetes mellitus Status: Chronic Current Visit: Yes Qualifiers: Diabetes mellitus type: type 2 (6) Hypertension Status: Chronic Current Visit: Yes Qualifiers: Hypertension type: essential hypertension Qualified Code(s): I10 - Essential (primary) hypertension (7) Severe aortic stenosis Status: Chronic Current Visit: Yes (8) Bradycardia Status: Resolved Current Visit: Yes
[2016-09-21] MEDS: IPRATROPIUM 500 MCG/2.5 ML NEB RESP TX SCH ×4 (01:44→20:32)
[2016-09-21] MEDS: SPIRONOLACTONE 25 MG TABLET PO SCH ×3 (02:39→21:20)
[2016-09-21 05:32] LABS: Basophils % 0.1 % (0.0-0.8); Eosinophils # 0.1 10*3/uL (0.0-0.87); Eosinophils % 1.3 % (0.00-10.9); Hematocrit 29.7 VOL% (42.0-52.0); Immature Granulocytes % 1.4 %; Immature Granulocytes Absolute 0.14 #; Lymphocytes # 0.7 10*3/uL (1.4-4.0); Lymphocytes % 7.2 % (21.2-54.2); Mean Corpuscular HGB Conc 33.7 GM/DL (32-36); Mean Corpuscular Hemoglobin 31 PG (27-34); Mean Corpuscular Volume 90.5 FL (87-102); Mean Platelet Volume 11.3 FL (9.6-12.0); Monocytes # 1.3 10*3/uL (0.11-0.8); Monocytes % 13.4 % (1.7-12.7); Neutrophils # 7.7 10*3/uL (1.4-7.4); Neutrophils % 76.6 % (38.7-73.9); Platelet Count 185 T/CUMM (130-400); Red Blood Count 3.28 MC/CUMM (3.8-5.5); Red Cell Distribution Width 13.6 % (9.3-17.3)
[2016-09-21 05:58] LABS: Calcium 8.6 MG/DL (8.5-10.1); Magnesium 3.2 MG/DL (1.8-2.4); Osmolality,Calculated 302.7 MOS/KG (273-304); Potassium 3.9 MMOL/L (3.5-5.1)
--- NOTE | 2016-09-21 08:59 | Pulmonology Progress Note ---
Pulmonary - PN: Subj Interval history: This 86-year-old white male has congestive heart failure due to aortic stenosis. Also has atherosclerotic heart disease with previous coronary bypass surgery. Needs to have his IV aortic valve replaced. He has a right pleural effusion. His chest x-ray looks a little bit better today as far as the pulmonary edema is concerned. However we gave him Lasix yesterday and his creatinine has risen a little more. I think we would do best to get the right pleural fluid drained in preparation for surgery. Will ask interventional radiology to do this since it appears to be loculated laterally and would be safely done with ultrasound guidance. Patient is not sleeping well. Should tolerate some Ativan at bedtime. Quite anxious. I should note that the reason he has pleural fluid on the right and not the left is that he has had a previous left decortication. 09/18/2016 we have tried to diurese him and it has not been very successful. His creatinine has risen. He had a right thoracentesis with removal of 800 mL of fluid but he had his CT scan yesterday still showed significant right effusion. The pleural fluid is a transudate. Certainly think this is due to congestive heart failure, due to his aortic stenosis. It will be very difficult to treat his heart failure without the valve being replaced. However he is at high risk for surgery given his fragile state and acute kidney injury with Lasix and low cardiac output. Will ask nephrology to see if they can help us with this. Patient at present is about the same as far as her shortness of breath. He is empirically on antibiotics. 09/19/2016 he continues to complain of dyspnea. Primarily says he has trouble breathing through his nose. He is on 2 different nose sprays in his nasal passages appear open on my exam. I think is primarily short of breath related to his congestive heart failure/aortic stenosis. Renal function is a little better. Perhaps getting further out from contrast studies is helping. We do need to try to diurese him further. Nephrology is following as well. 09/20/2016 patient feels a little better sitting up in the chair. However his chest x-ray shows that the right pleural effusion has increased in size. Having a difficult time diuresing him with his creatinine 2.8. Would recommend putting a pleural catheter in the right side to drain this. Hopefully this will help us prep him for possible aortic valve replacement. The pleural effusion is due to congestive heart failure, however they are having a difficult time diuresing him. 09/21/2016 breathing is better since getting the pleural catheter. Chest x-ray today pending. Renal function getting a little better. Hopefully can plan aortic valve surgery soon. Exam (Progress Note) - Constitutional Vitals: Period Temp Pulse Resp BP Sys/H[place]ado Pulse Ox Last 24 Hr 97.2 F-99.0 F 64-90 16-200 110-128/48-72 94-100 Exam: Patient's alert sitting on the side of the bed somewhat anxious. Vital signs normal. Wearing ventimask oxygen. Pupils react to light. Throat clear. Neck supple no bruits. Chest shows a few basilar crackles and some dullness at the right base. Has right pleural catheter in place. Heart normal rate rhythm grade 2/6 systolic murmur at right base. Abdomen soft nontender no masses. Bowel sounds present. Extremities no clubbing or cyanosis. Trace of edema. Calves nontender. Results - Labs CBC & BMP: 09/21/16 04:16 09/21/16 04:16 Lab Results: I have reviewed the past 24 hour labs Assessment and Plan (1) Syncope Status: Acute Assessment and plan: Syncope likely due to cardiac causes related to his aortic stenosis. 09/15/16 likely due to his aortic stenosis. 09/18/2016 again the syncope is likely due to his aortic stenosis. 09/20/2016 no symptoms of postural syncope at this time Current Visit: Yes (2) Chronic kidney disease Status: Chronic Assessment and plan: Creatinine is 2.1. He has had some renal insufficiency for quite some time related to vascular disease and diabetes. At present I think he is ahead on fluid. I will bump him with Lasix. 09/15/16 creatinine up to 2.3 after a dose of Lasix. Afraid to diurese any more vigorously at present. Asking interventional radiology to drain the loculated right effusion. This should help getting prepped for aortic valve replacement. 09/18/2016 creatinine up to 2.8. Difficulty mobilizing right pleural effusion fluid 09/19/2016 renal function is a little better today. Creatinine down to 2.4. May have had a bump in creatinine related to his contrast last week. 09/20/2016 creatinine up to 2.8. 09/21/2016 creatinine down to 2.5. Improving. Hopefully getting further out from contrast Current Visit: Yes (3) Coronary artery disease Status: Chronic Assessment and plan: Previous coronary bypass surgery with additional findings at catheterization this admission. Current Visit: Yes Qualifiers: Coronary Disease-Associated Artery/Lesion type: [place] artery [place] vs. transplanted heart: [place] heart Associated angina: without angina Qualified Code(s): I25.10 - Atherosclerotic heart disease of [place] coronary artery without angina pectoris (4) Pulmonary hypertension Status: Chronic Assessment and plan: This was not quantified on the echo but is likely to be secondary to his left heart disease with aortic stenosis. 09/15/16 this should be due to his aortic stenosis and congestive heart failure. 09/18/2016 secondary to his left heart disease. 09/20/2016 this is due to his left heart disease. 09/21/2016 due to left heart disease. Current Visit: Yes (5) Severe aortic stenosis Status: Chronic Assessment and plan: Has severe aortic stenosis by echo and catheterization. Likely the possible cause of his congestive heart failure and pulmonary hypertension. 09/15/16 hopefully can have surgery when we get him tuned up. 09/18/2016 will need surgery if he can tolerate it. 09/19/2016 hopefully we can get him tuned up where he can tolerate AVR. 09/20/2016 aortic valve surgery is indicated when we can get him tuned up for it. 09/21/2016 need surgery. Trying to get him tuned up for that. If renal function is stable and right pleural effusion totally evacuated, then hopefully could plan sign. Current Visit: Yes (6) Diabetes mellitus Status: Chronic Assessment and plan: Has some hyperglycemia. Adding sliding scale. 09/15/16 glucoses in the 140-200 range. 09/18/2016 glucoses look okay. 09/19/2016 glucoses are fairly well controlled. 09/20/2016 glucoses look better. 09/21/2016 still mildly elevated glucoses. Current Visit: Yes Qualifiers: Diabetes mellitus type: type 2 (7) Acute bronchitis Status: Acute Assessment and plan: Based on the change in sputum color and elevated white count 16,000 think is reasonable to cover him with antibiotics for this. Will use Atrovent for bronchodilators. 09/15/16 empirically on antibiotics and Atrovent. I think his main problem respiratory escobar is congestive heart failure related to his aortic stenosis. Would not delay surgery for bronchitis in this situation 09/18/2016 on empiric antibiotics. 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 It is sensitive to Cipro. I will change him to oral Cipro. 09/20/2016 I do not hear any rhonchi. He is on oral Cipro. 09/21/2016 bronchitis is improved. Probably needs a couple more days of Cipro. Current Visit: Yes
[2016-09-21] MEDS: ASPIRIN EC 81 MG TABLET PO SCH (09:57)
[2016-09-21] MEDS: NIACIN 500 MG TABLET PO SCH (09:57)
[2016-09-21] MEDS: METOPROLOL TARTRATE 25 MG TABLET PO SCH ×2 (09:57→21:19)
[2016-09-21] MEDS: CIPROFLOXACIN 250 MG TABLET PO SCH ×2 (09:57→21:19)
[2016-09-21] MEDS: GLIMEPIRIDE 4 MG TABLET PO SCH ×2 (09:57→17:12)
[2016-09-21] MEDS: CITRIC ACID/SODIUM CITRATE 30 ML UDCUP PO SCH ×3 (09:58→21:20)
[2016-09-21] MEDS: DOCUSATE SODIUM 100 MG CAPSULE PO PRN (09:58)
[2016-09-21] MEDS: PANTOPRAZOLE 40 MG TABLET PO SCH (09:58)
[2016-09-21] MEDS: INSULIN GLARGINE 100 UNIT/ML SUBCUT SCH (09:58)
[2016-09-21] MEDS: FLUTICASONE 50 MCG NASAL SPRAY 16 GM BOTTLE BOTH NARES SCH ×2 (09:58→22:35)
[2016-09-21] MEDS: LORATADINE 10 MG TABLET PO PRN (09:58)
[2016-09-21] MEDS: INSULIN LISPRO 100 UNIT/ML SUBCUT SCH ×4 (09:59→21:20)
--- NOTE | 2016-09-21 15:02 | XRay Report ---
XR chest 1V portable Indication: Post right pleural catheter Comparison: Chest x-ray dated September 20, 2016 Technique: Single frontal view of the chest Findings: Continued borderline prominence of the heart status post sternotomy. Right-sided catheter projects over the right lung base. Interval improved right pleural fluid with minimal residual remaining. Continued small left pleural fluid. Continued coarsened bilateral interstitial prominence with scattered small opacities. Interval development of small subcutaneous emphysema within the right chest wall and right neck base. Visualized osseous and surrounding soft tissue structures appear grossly unchanged. IMPRESSION: As above. PROCEDURE INTERPRETED AT [facility] DEPARTMENT OF RADIOLOGY Final Report Signed by: Dr Petr Wei
--- NOTE | 2016-09-21 16:01 | Cardiothoracic Progress Note ---
Cardiothoracic Subjective Interval history: Patient looks and feels better after chest tube placement and drainage of the right hemithorax. Continue present therapy for now as he seems to be improving slowly. Exam (Progress Note) - Constitutional Vitals: Period Temp Pulse Resp BP Sys/Hurtado Pulse Ox Last 24 Hr 97.2 F-99.0 F 67-90 16-22 99-124/47-72 94-100 Result/EKG - Labs CBC & BMP: 09/21/16 04:16 09/21/16 04:16 Labs: Laboratory Results - last 24 hr 09/20/16 09/20/16 09/21/16 17:03 21:14 04:16 WBC 10.0 RBC 3.28 L Hgb 10.0 L Hct 29.7 L MCV 90.5 MCH 31 MCHC 33.7 RDW 13.6 Plt Count 185 MPV 11.3 Neut % (Auto) 76.6 H Lymph % (Auto) 7.2 L [place] % (Auto) 13.4 H Eos % (Auto) 1.3 Baso % (Auto) 0.1 Neut # (Auto) 7.7 H Lymph # (Auto) 0.7 L [place] # (Auto) 1.3 H Eos # (Auto) 0.1 Baso # (Auto) 0.0 Immature Gran % 1.4 Nucleated RBC % 0.0 Immature Gran # 0.14 Nucleated RBCs # 0.00 Sodium Potassium Chloride Carbon Dioxide Anion Gap BUN Creatinine GFR Calculation BUN/Creatinine Ratio Glucose POC Glucose 318 H 164 H Calculated Osmolality Calcium Magnesium 09/21/16 09/21/16 09/21/16 04:16 07:49 11:59 WBC RBC Hgb Hct MCV MCH MCHC RDW Plt Count MPV Neut % (Auto) Lymph % (Auto) [place] % (Auto) Eos % (Auto) Baso % (Auto) Neut # (Auto) Lymph # (Auto) [place] # (Auto) Eos # (Auto) Baso # (Auto) Immature Gran % Nucleated RBC % Immature Gran # Nucleated RBCs # Sodium 138 Potassium 3.9 Chloride 98 Carbon Dioxide 32 Anion Gap 11.9 BUN 87 H Creatinine 2.50 H GFR Calculation 25 BUN/Creatinine Ratio 34.00 H Glucose 121 H POC Glucose 165 H 254 H Calculated Osmolality 302.7 Calcium 8.6 Magnesium 3.2 H 09/21/16 15:28 WBC RBC Hgb Hct MCV MCH MCHC RDW Plt Count MPV Neut % (Auto) Lymph % (Auto) [place] % (Auto) Eos % (Auto) Baso % (Auto) Neut # (Auto) Lymph # (Auto) [place] # (Auto) Eos # (Auto) Baso # (Auto) Immature Gran % Nucleated RBC % Immature Gran # Nucleated RBCs # Sodium Potassium Chloride Carbon Dioxide Anion Gap BUN Creatinine GFR Calculation BUN/Creatinine Ratio Glucose POC Glucose 154 H Calculated Osmolality Calcium Magnesium Quality Measures - Stroke Onset of Symptoms Date: 09/05/16 Onset of Symptoms Time: 15:30 Symptom Onset Unknown: No
--- NOTE | 2016-09-21 17:19 | Cardiology Progress Note ---
Assessment and Plan - Time spent with patient Time spent with patient: Less than 30 minutes (1) Severe aortic stenosis Status: Chronic Assessment and plan: SEE PLAN OF CARE LISTED BELOW. Current Visit: Yes (2) Syncope Status: Acute Assessment and plan: SEE PLAN OF CARE LISTED BELOW Current Visit: Yes (3) Atrial flutter by electrocardiogram Status: Acute Assessment and plan: SEE PLAN OF CARE LISTED BELOW Current Visit: Yes (4) Bradycardia Status: Resolved Assessment and plan: SEE PLAN OF CARE LISTED BELOW Current Visit: Yes (5) Coronary artery disease Status: Chronic Assessment and plan: SEE PLAN OF CARE LISTED BELOW Current Visit: Yes Qualifiers: Coronary Disease-Associated Artery/Lesion type: [place] artery [place] vs. transplanted heart: [place] heart Associated angina: without angina Qualified Code(s): I25.10 - Atherosclerotic heart disease of [place] coronary artery without angina pectoris (6) Hypertension Status: Chronic Assessment and plan: SEE PLAN OF CARE LISTED BELOW Current Visit: Yes (7) Hyperlipidemia Status: Chronic Assessment and plan: SEE PLAN OF CARE LISTED BELOW Current Visit: Yes (8) Diabetes mellitus Status: Chronic Assessment and plan: SEE PLAN OF CARE LISTED BELOW Current Visit: Yes Qualifiers: Diabetes mellitus type: type 2 (9) Acute on chronic renal failure Status: Acute Assessment and plan: SEE PLAN OF CARE LISTED BELOW Current Visit: Yes (10) Leukocytosis Status: Acute Assessment and plan: SEE PLAN OF CARE LISTED BELOW Current Visit: Yes (11) Epistaxis Status: Acute Assessment and plan: SEE PLAN OF CARE LISTED BELOW Current Visit: Yes (12) Pleural effusion Status: Acute Assessment and plan: SEE PLAN OF CARE LISTED BELOW. Current Visit: Yes Cardiology - PN: Subj Interval history: [facility] SAWYER: DR. GOLDSMITH Mr. Frazier is a 86 year old male with a history of coronary artery disease, hypertension, hyperlipidemia, type 2 diabetes mellitus, chronic kidney disease. He is status post coronary artery bypass grafting August 06 2001 with SINGH to the LAD and vein graft to the circumflex marginal and right coronary arteries. He is status post right carotid endarterectomy July 03, 2002. He was admitted to the hospital after an episode of syncope and prolonged weakness. He was initially in atrial flutter, bradycardia, junctional rhythm, no atrial flutter, with normal conduction. He was on no zackery blocking agents. An echocardiogram was performed with showed severe aortic stenosis with preserved ejection fraction. He had some trivial troponin elevation in the setting of an elevated creatinine. Urine toxicology was negative. 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 Mr. Frazier has had trouble with dyspnea and decreased O2 saturations past couple of days. Pulmonology has seen him in consultation and due to a right pleural effusion, he underwent ultrasound-guided thoracentesis September 15 where he was drained of 800 cc of straw-colored, blood-tinged fluid. He has been seen by CV surgery and will still need a CT angiogram to localize his KAITY if surgery is to be contemplated. At this time, he does not seem ready for surgical consideration. He underwent chest tube placement for recurrent pleural effusion on 09/20/16. He was resting comfortably upon exam today. He initially put out over 1 liter of drainage during the first few hours after placement of his chest tube. We are presently continuing medical management. ASSESSMENT/PLAN: 1. SEVERE AORTIC STENOSIS - Dr. Mehta has been consulted and tentatively plans perform AVR next week. Echocardiogram showed severe aortic stenosis and cardiac catheterization root revealed patency of an internal mammary graft and circumflex graft although the circumflex graft has an ostial stenosis. The right coronary graft is occluded but the [place] right coronary does not have significant obstructive lesions. The procedure is made somewhat more risky by his age, renal dysfunction, and presence of a patent internal mammary graft. CV Surgery plans to try to localize this graft more clearly with CT angiogram at some point when creatinine improves. 2. SYNCOPE - Carotid doppler ultrasound reveals right ICA with 50-69% stenosis. CT of the brain was negative. This could have been related to bradycardia or his aortic stenosis. Neurology has seen him in consultation and does not feel he has suffered a TIA at this time. 3. ATRIAL FLUTTER - CHADSVASC 5. Anticoagulation has been held pending surgery next week. He has been started on a beta demarco and has tolerated this well. 4. BRADYCARDIA - Resolved. Will continue to monitor. 5. CORONARY ARTERY DISEASE - He is status post coronary artery bypass grafting August 06 2001 with SINGH to the LAD and vein graft to the circumflex marginal and right coronary arteries. Cardiac catheterization on 09/13/2016 revealed severe [place] three-vessel and ostial left main coronary artery disease with 2 of 3 bypass grafts patent. There is an ostial pinch in the saphenous vein graft to the obtuse marginal branch. The right coronary artery graft is occluded but the right coronary artery does not have any significant high-grade disease at this time. 6. HYPERTENSION -this is currently well controlled on the current therapy. Will continue to monitor and adjust accordingly. 7. HYPERLIPIDEMIA - Continue lipid lowering agent. FLP revealed triglycerides 98 , cholesterol 127, LDL 60, HDL 54. 8. DIABETES - He is on accuchecks with sliding scale insulin. Continue current plan of care. 9. ACUTE ON CHRONIC RENAL FAILURE - Will continue to monitor BMP. Risk for perioperative complications was discussed with the patient. Creatinine continued to rise and nephrology was consulted. He did have a CT with contrast on 09/15/16. Creatinine is down to 2.4 today. 10. LEUKOCYTOSIS - He has been afebrile. He is receiving empiric treatment with IV antibiotics. Preliminary report sputum culture resulted gram-positive cocci , he is now on droplet and contact precautions for MRSA in the sputum. Blood cultures negative. His Levaquin dose was adjusted for his renal insufficiency. 11. EPISTAXIS - Required packing by ENT last Sunday. He has had no further episodes since. H&H stable. We are currently continuing aspirin and Eliquis. This could be the etiology of the patient's blood-tinged sputum. He has not had any recurrent episodes. 12. PLEURAL EFFUSION - Status post thoracentesis September 15. CT scan yesterday still revealed significant right effusion. Patient is being seen by pulmonary. They feel that this is secondary to patient's congestive heart failure due to his aortic stenosis. It is difficult to diurese patient at this time as patient's creatinine continues to rise, 2.8 today. We will continue to monitor this with daily BMP. Nephrology has been consulted to further assist. He underwent right sided chest tube placement by interventional radiology on 09/20 and put out over 1 liter after insertion. It continues to drain and he reports his breathing has improved. Further plan and addendum to follow by Dr. Goldsmith. Exam (Progress Note) - Constitutional Vitals: Period Temp Pulse Resp BP Sys/Hurtado Pulse Ox Last 24 Hr 97.2 F-99.0 F 67-90 16-22 99-124/47-72 94-100 Exam: General: Appears chronically ill. HEENT: PERRL, normocephalic, atraumatic. Mucous membranes moist. No jaundice noted. Neck: No JVD/HJR, no thyromegaly or lymphadenopathy noted. Cardiac: Atrial flutter with controlled ventricular rate. Systolic murmur consistent with aortic stenosis. Lungs: Few bibasilar crackles. Requiring oxygen Via Ventimask. Abdomen: Soft, bowel sounds normoactive. Nontender and nondistended. No abdominal bruit or thrill noted. No masses noted. Extremities: No clubbing, cyanosis noted. No edema noted. Upper extremity pulses 2+. Lower extremity pulses 2+. Capillary refill less than 3 seconds. Skin: No unusual lesions or rashes. No skin breakdown appreciated. Neuro: Awake, alert and oriented 3. Moves all extremities well without hemiparesis or paralysis. No essential tremor is appreciated. Result/EKG - Labs CBC & BMP: 09/21/16 04:16 09/21/16 04:16 Lab Results: I have reviewed the past 24 hour labs Labs: Laboratory Results - last 24 hr 09/20/16 09/20/16 09/21/16 17:03 21:14 04:16 WBC 10.0 RBC 3.28 L Hgb 10.0 L Hct 29.7 L MCV 90.5 MCH 31 MCHC 33.7 RDW 13.6 Plt Count 185 MPV 11.3 Neut % (Auto) 76.6 H Lymph % (Auto) 7.2 L [place] % (Auto) 13.4 H Eos % (Auto) 1.3 Baso % (Auto) 0.1 Neut # (Auto) 7.7 H Lymph # (Auto) 0.7 L [place] # (Auto) 1.3 H Eos # (Auto) 0.1 Baso # (Auto) 0.0 Immature Gran % 1.4 Nucleated RBC % 0.0 Immature Gran # 0.14 Nucleated RBCs # 0.00 Sodium Potassium Chloride Carbon Dioxide Anion Gap BUN Creatinine GFR Calculation BUN/Creatinine Ratio Glucose POC Glucose 318 H 164 H Calculated Osmolality Calcium Magnesium 09/21/16 09/21/16 09/21/16 04:16 07:49 11:59 WBC RBC Hgb Hct MCV MCH MCHC RDW Plt Count MPV Neut % (Auto) Lymph % (Auto) [place] % (Auto) Eos % (Auto) Baso % (Auto) Neut # (Auto) Lymph # (Auto) [place] # (Auto) Eos # (Auto) Baso # (Auto) Immature Gran % Nucleated RBC % Immature Gran # Nucleated RBCs # Sodium 138 Potassium 3.9 Chloride 98 Carbon Dioxide 32 Anion Gap 11.9 BUN 87 H Creatinine 2.50 H GFR Calculation 25 BUN/Creatinine Ratio 34.00 H Glucose 121 H POC Glucose 165 H 254 H Calculated Osmolality 302.7 Calcium 8.6 Magnesium 3.2 H 09/21/16 15:28 WBC RBC Hgb Hct MCV MCH MCHC RDW Plt Count MPV Neut % (Auto) Lymph % (Auto) [place] % (Auto) Eos % (Auto) Baso % (Auto) Neut # (Auto) Lymph # (Auto) [place] # (Auto) Eos # (Auto) Baso # (Auto) Immature Gran % Nucleated RBC % Immature Gran # Nucleated RBCs # Sodium Potassium Chloride Carbon Dioxide Anion Gap BUN Creatinine GFR Calculation BUN/Creatinine Ratio Glucose POC Glucose 154 H Calculated Osmolality Calcium Magnesium - EKG EKG results: interpreted by me (renetta) Quality Measures - Stroke Onset of Symptoms Date: 09/05/16 Onset of Symptoms Time: 15:30 Symptom Onset Unknown: No
[2016-09-21] MEDS: ATORVASTATIN 80 MG TABLET PO SCH (21:19)
--- NOTE | 2016-09-21 21:25 | Nephrology Progress Note ---
Nephrology - PN: Subj Interval history: Shortness of breath improved significantly after drainage of pleural effusion. No new symptoms today. Exam (PN)-Nephrology - Vital Signs Vital signs: Period Temp Pulse Resp BP Sys/Hurtado Pulse Ox Last 24 Hr 97.2 F-99.0 F 67-90 16-22 99-124/47-72 94-100 Exam: Gen.: Alert and oriented x3. ENT: Pupils equal round reactive to light. EOMs intact. Mucous membranes moist. Neck: Supple. No JVD or bruit. Cardiovascular: Regular rate and rhythm. 2/6 systolic murmur Lungs: Right pleural drainage tube. No rales Abdomen: Soft. Nontender. Positive bowel sounds. No organomegaly Extremities: No edema - Lab 09/21/16 04:16 09/21/16 04:16 Most recent lab results ABG pH 7.465 (7.35-7.45) H 09/14/16 06:00 ABG pCO2 28.8 MM HG (35-48) L 09/14/16 06:00 ABG pO2 64.1 MM HG (80-95) L 09/14/16 06:00 ABG HCO3 20.3 MMOL/L (20-26) 09/14/16 06:00 ABG O2 Saturation 93.0 % (95-100) L 09/14/16 06:00 Calcium 8.6 MG/DL (8.5-10.1) 09/21/16 04:16 Magnesium 3.2 MG/DL (1.8-2.4) H 09/21/16 04:16 Assessment and Plan (1) Acute on chronic renal failure Status: Acute Assessment and plan: 86-year-old man with: * CRF stage III. * ARF. creatinine stable * S OB. Markedly improved after drainage of pleural effusion * Aortic stenosis, severe. Preserved LV function * CAD. Prior CABG * Diabetes mellitus * Hypertension Current Visit: Yes (2) Near syncope Status: Acute Current Visit: Yes (3) Pleural effusion Status: Acute Current Visit: Yes (4) Coronary artery disease Status: Chronic Current Visit: Yes Qualifiers: Coronary Disease-Associated Artery/Lesion type: [place] artery [place] vs. transplanted heart: [place] heart Associated angina: without angina Qualified Code(s): I25.10 - Atherosclerotic heart disease of [place] coronary artery without angina pectoris (5) Diabetes mellitus Status: Chronic Current Visit: Yes Qualifiers: Diabetes mellitus type: type 2 (6) Hypertension Status: Chronic Current Visit: Yes Qualifiers: Hypertension type: essential hypertension Qualified Code(s): I10 - Essential (primary) hypertension (7) Severe aortic stenosis Status: Chronic Current Visit: Yes (8) Bradycardia Status: Resolved Current Visit: Yes
[2016-09-22] MEDS: IPRATROPIUM 500 MCG/2.5 ML NEB RESP TX SCH ×4 (00:13→19:54)
[2016-09-22 04:12] LABS: Basophils % 0.2 % (0.0-0.8); Eosinophils # 0.2 10*3/uL (0.0-0.87); Eosinophils % 2.1 % (0.00-10.9); Hematocrit 28.7 VOL% (42.0-52.0); Hemoglobin 9.8 GM/DL (14.0-18.0); Immature Granulocytes % 1.2 %; Immature Granulocytes Absolute 0.11 #; Lymphocytes # 0.7 10*3/uL (1.4-4.0); Lymphocytes % 7.2 % (21.2-54.2); Mean Corpuscular HGB Conc 34.1 GM/DL (32-36); Mean Corpuscular Hemoglobin 31 PG (27-34); Mean Corpuscular Volume 90.3 FL (87-102); Mean Platelet Volume 10.6 FL (9.6-12.0); Monocytes # 1.3 10*3/uL (0.11-0.8); Monocytes % 13.6 % (1.7-12.7); Neutrophils # 7.1 10*3/uL (1.4-7.4); Neutrophils % 75.7 % (38.7-73.9); Platelet Count 171 T/CUMM (130-400); Red Blood Count 3.18 MC/CUMM (3.8-5.5); Red Cell Distribution Width 13.4 % (9.3-17.3); White Blood Count 9.4 T/CUMM (4-12)
[2016-09-22] MEDS ORDERED: FUROSEMIDE 40 MG/4 ML VIAL IV ONE (07:53)
--- NOTE | 2016-09-22 07:58 | Pulmonology Progress Note ---
Pulmonary - PN: Subj Interval history: This 86-year-old white male has congestive heart failure due to aortic stenosis. Also has atherosclerotic heart disease with previous coronary bypass surgery. Needs to have his IV aortic valve replaced. He has a right pleural effusion. His chest x-ray looks a little bit better today as far as the pulmonary edema is concerned. However we gave him Lasix yesterday and his creatinine has risen a little more. I think we would do best to get the right pleural fluid drained in preparation for surgery. Will ask interventional radiology to do this since it appears to be loculated laterally and would be safely done with ultrasound guidance. Patient is not sleeping well. Should tolerate some Ativan at bedtime. Quite anxious. I should note that the reason he has pleural fluid on the right and not the left is that he has had a previous left decortication. 09/18/2016 we have tried to diurese him and it has not been very successful. His creatinine has risen. He had a right thoracentesis with removal of 800 mL of fluid but he had his CT scan yesterday still showed significant right effusion. The pleural fluid is a transudate. Certainly think this is due to congestive heart failure, due to his aortic stenosis. It will be very difficult to treat his heart failure without the valve being replaced. However he is at high risk for surgery given his fragile state and acute kidney injury with Lasix and low cardiac output. Will ask nephrology to see if they can help us with this. Patient at present is about the same as far as her shortness of breath. He is empirically on antibiotics. 09/19/2016 he continues to complain of dyspnea. Primarily says he has trouble breathing through his nose. He is on 2 different nose sprays in his nasal passages appear open on my exam. I think is primarily short of breath related to his congestive heart failure/aortic stenosis. Renal function is a little better. Perhaps getting further out from contrast studies is helping. We do need to try to diurese him further. Nephrology is following as well. 09/20/2016 patient feels a little better sitting up in the chair. However his chest x-ray shows that the right pleural effusion has increased in size. Having a difficult time diuresing him with his creatinine 2.8. Would recommend putting a pleural catheter in the right side to drain this. Hopefully this will help us prep him for possible aortic valve replacement. The pleural effusion is due to congestive heart failure, however they are having a difficult time diuresing him. 09/21/2016 breathing is better since getting the pleural catheter. Chest x-ray today pending. Renal function getting a little better. Hopefully can plan aortic valve surgery soon. 09/22/2016 patient feels a little better. Should be able to tolerate nasal biprong's now. Chest x-ray shows the right pleural effusion has been evacuated. Put out about 200 mL from chest tube since yesterday morning. Need to keep it in for now. Renal function reports are pending from this morning. He does appear to be holding his own layer. Still has some peripheral edema and we need to bump with Lasix again. In my opinion he will need to have aortic valve surgery in order to get back to any meaningful life at home. Otherwise he will be a bed to chair existence. Certainly some risk involved as far as postoperative renal function and/or respiratory failure, but I favor proceeding with surgery next week. Exam (Progress Note) - Constitutional Vitals: Period Temp Pulse Resp BP Sys/[place]ado Pulse Ox Last 24 Hr 96.8 F-98.3 F 67-90 16-22 99-128/47-64 93-100 Exam: Patient's alert sitting in bedside chair. Vital signs normal. Wearing ventimask oxygen. Pupils react to light. Throat clear. Neck supple no bruits. Chest shows a few basilar crackles and some dullness at the right base. Has right pleural catheter in place. Heart normal rate rhythm grade 2/6 systolic murmur at right base. Abdomen soft nontender no masses. Bowel sounds present. Extremities no clubbing or cyanosis. 1+ edema. Calves nontender. Results - Labs CBC & BMP: 09/22/16 03:54 09/21/16 04:16 Lab Results: I have reviewed the past 24 hour labs - Diagnostic Findings Procedure: Chest x-ray: image reviewed by me (Right pleural effusion has been drained completely. He has some chronic pleural scarring bilaterally. Heart size slightly enlarged.) Assessment and Plan (1) Syncope Status: Acute Assessment and plan: Syncope likely due to cardiac causes related to his aortic stenosis. 09/15/16 likely due to his aortic stenosis. 09/18/2016 again the syncope is likely due to his aortic stenosis. 09/20/2016 no symptoms of postural syncope at this time Current Visit: Yes (2) Chronic kidney disease Status: Chronic Assessment and plan: Creatinine is 2.1. He has had some renal insufficiency for quite some time related to vascular disease and diabetes. At present I think he is ahead on fluid. I will bump him with Lasix. 09/15/16 creatinine up to 2.3 after a dose of Lasix. Afraid to diurese any more vigorously at present. Asking interventional radiology to drain the loculated right effusion. This should help getting prepped for aortic valve replacement. 09/18/2016 creatinine up to 2.8. Difficulty mobilizing right pleural effusion fluid 09/19/2016 renal function is a little better today. Creatinine down to 2.4. May have had a bump in creatinine related to his contrast last week. 09/20/2016 creatinine up to 2.8. 09/21/2016 creatinine down to 2.5. Improving. Hopefully getting further out from contrast 09/22/2016 chemistries pending today. Hopefully can get creatinine back down to around 2. Current Visit: Yes (3) Coronary artery disease Status: Chronic Assessment and plan: Previous coronary bypass surgery with additional findings at catheterization this admission. Current Visit: Yes Qualifiers: Coronary Disease-Associated Artery/Lesion type: [place] artery [place] vs. transplanted heart: [place] heart Associated angina: without angina Qualified Code(s): I25.10 - Atherosclerotic heart disease of [place] coronary artery without angina pectoris (4) Pulmonary hypertension Status: Chronic Assessment and plan: This was not quantified on the echo but is likely to be secondary to his left heart disease with aortic stenosis. 09/15/16 this should be due to his aortic stenosis and congestive heart failure. 09/18/2016 secondary to his left heart disease. 09/20/2016 this is due to his left heart disease. 09/21/2016 due to left heart disease. 09/22/2016 this is secondary to his left heart disease, primarily aortic stenosis Current Visit: Yes (5) Severe aortic stenosis Status: Chronic Assessment and plan: Has severe aortic stenosis by echo and catheterization. Likely the possible cause of his congestive heart failure and pulmonary hypertension. 09/15/16 hopefully can have surgery when we get him tuned up. 09/18/2016 will need surgery if he can tolerate it. 09/19/2016 hopefully we can get him tuned up where he can tolerate AVR. 09/20/2016 aortic valve surgery is indicated when we can get him tuned up for it. 09/21/2016 need surgery. Trying to get him tuned up for that. If renal function is stable and right pleural effusion totally evacuated, then hopefully could plan sign. 09/22/2016 x-ray is better. Less dyspnea. If renal function is stable, I would be in favor of proceeding with surgery next week. Current Visit: Yes (6) Diabetes mellitus Status: Chronic Assessment and plan: Has some hyperglycemia. Adding sliding scale. 09/15/16 glucoses in the 140-200 range. 09/18/2016 glucoses look okay. 09/19/2016 glucoses are fairly well controlled. 09/20/2016 glucoses look better. 09/21/2016 still mildly elevated glucoses. 09/22/2016 glucoses fairly well controlled. Current Visit: Yes Qualifiers: Diabetes mellitus type: type 2 (7) Acute bronchitis Status: Acute Assessment and plan: Based on the change in sputum color and elevated white count 16,000 think is reasonable to cover him with antibiotics for this. Will use Atrovent for bronchodilators. 09/15/16 empirically on antibiotics and Atrovent. I think his main problem respiratory escobar is congestive heart failure related to his aortic stenosis. Would not delay surgery for bronchitis in this situation 09/18/2016 on empiric antibiotics. 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 It is sensitive to Cipro. I will change him to oral Cipro. 09/20/2016 I do not hear any rhonchi. He is on oral Cipro. 09/21/2016 bronchitis is improved. Probably needs a couple more days of Cipro. 09/22/2016 he has had a week's worth of antibiotics. Bronchitis is quiet now. We will stop Cipro. Current Visit: Yes
[2016-09-22 08:10] LABS: Calcium 8.8 MG/DL (8.5-10.1); Magnesium 2.9 MG/DL (1.8-2.4); Osmolality,Calculated 300.5 MOS/KG (273-304); Potassium 3.7 MMOL/L (3.5-5.1)
[2016-09-22] MEDS: INSULIN LISPRO 100 UNIT/ML SUBCUT SCH ×4 (08:16→21:54)
[2016-09-22] MEDS: PANTOPRAZOLE 40 MG TABLET PO SCH (08:19)
[2016-09-22] MEDS: METOPROLOL TARTRATE 25 MG TABLET PO SCH ×2 (08:20→21:34)
[2016-09-22] MEDS: NIACIN 500 MG TABLET PO SCH (08:20)
[2016-09-22] MEDS: SPIRONOLACTONE 25 MG TABLET PO SCH ×2 (08:20→21:32)
[2016-09-22] MEDS: GLIMEPIRIDE 4 MG TABLET PO SCH ×2 (08:20→16:26)
[2016-09-22] MEDS: ASPIRIN EC 81 MG TABLET PO SCH (08:20)
[2016-09-22] MEDS: FLUTICASONE 50 MCG NASAL SPRAY 16 GM BOTTLE BOTH NARES SCH ×2 (08:22→22:36)
[2016-09-22] MEDS: INSULIN GLARGINE 100 UNIT/ML SUBCUT SCH (08:22)
[2016-09-22] MEDS: CITRIC ACID/SODIUM CITRATE 30 ML UDCUP PO SCH ×3 (08:22→22:36)
--- NOTE | 2016-09-22 08:56 | XRay Report ---
XR chest 1V portable Indication: Post right pleural catheter Comparison: Chest x-ray dated September 21, 2016 Technique: Single frontal view of the chest. Findings: Continued cardiomegaly status post sternotomy. Drainage catheter again projects over the right lung base. Trace pneumothorax suspected laterally on the right. No significant change in scattered bilateral pulmonary opacities and bilateral interstitial prominence as well as small bilateral pleural fluid. Improved right chest wall and neck base subcutaneous emphysema. Osseous structures appear unchanged. IMPRESSION: As above. PROCEDURE INTERPRETED AT [facility] DEPARTMENT OF RADIOLOGY Final Report Signed by: Dr Petr Wei
--- NOTE | 2016-09-22 09:37 | Case Mgmt Physician Query Form ---
LONG STAY PHYSICIAN RECERTIFICATION *This form is to be completed for all Medicare patients before they reach day 20 of their hospitalization. Please complete each section as appropriate.* I certify that hospitalization, and continued hospitalization, for this patient is medically necessary as follows: 1) Reasons of either continued hospitalization of the patient for medical treatment or medically required diagnostic study or special or unusual services for cost outlier cases are as follows: He had contrast induced nephropathy post-cath; he will need valve surgery and bypass, but he is too sick at this time to be able to tolerate the surgery; he has been short of breath with borderline lung function for which she required a chest tube for a large pleural effusion; 2) Estimated time patient will need to remain in hospital: Unknown, it may be another 2 weeks or so 3) Plan for Post Hospital Care: ( ) Home with Primary Care Follow up ( ) Home with Home Health Follow up ( x) LTACH/ Acute Care Rehab/ SNF/Senior Living ( ) Other: If you have any questions, please contact me. Thank you, Marcelle Yoo RN Case Management P: [phone] F [phone] E: [email or web address]
--- NOTE | 2016-09-22 12:01 | Cardiothoracic Progress Note ---
Cardiothoracic Subjective Interval history: Patient is better today since drainage of his right hemithorax. My plan is to watch him over the weekend and make some determination as to whether he is going to be suitable in the short-term for surgical approach. We will continue to follow. Exam (Progress Note) - Constitutional Vitals: Period Temp Pulse Resp BP Sys/[place] Pulse Ox Last 24 Hr 96.8 F-98.1 F 66-80 16-22 113-128/52-64 93-100 Result/EKG - Labs CBC & BMP: 09/22/16 03:54 09/22/16 03:54 Labs: Laboratory Results - last 24 hr 09/21/16 09/21/16 09/21/16 11:59 15:28 20:46 WBC RBC Hgb Hct MCV MCH MCHC RDW Plt Count MPV Neut % (Auto) Lymph % (Auto) [place] % (Auto) Eos % (Auto) Baso % (Auto) Neut # (Auto) Lymph # (Auto) [place] # (Auto) Eos # (Auto) Baso # (Auto) Immature Gran % Nucleated RBC % Immature Gran # Nucleated RBCs # Sodium Potassium Chloride Carbon Dioxide Anion Gap BUN Creatinine GFR Calculation BUN/Creatinine Ratio Glucose POC Glucose 254 H 154 H 281 H Calculated Osmolality Calcium Magnesium 09/22/16 09/22/16 09/22/16 03:54 03:54 07:46 WBC 9.4 RBC 3.18 L Hgb 9.8 L Hct 28.7 L MCV 90.3 MCH 31 MCHC 34.1 RDW 13.4 Plt Count 171 MPV 10.6 Neut % (Auto) 75.7 H Lymph % (Auto) 7.2 L [place] % (Auto) 13.6 H Eos % (Auto) 2.1 Baso % (Auto) 0.2 Neut # (Auto) 7.1 Lymph # (Auto) 0.7 L [place] # (Auto) 1.3 H Eos # (Auto) 0.2 Baso # (Auto) 0.0 Immature Gran % 1.2 Nucleated RBC % 0.0 Immature Gran # 0.11 Nucleated RBCs # 0.00 Sodium 139 Potassium 3.7 Chloride 98 Carbon Dioxide 32 Anion Gap 12.7 BUN 76 H D Creatinine 2.40 H GFR Calculation 25 BUN/Creatinine Ratio 31.00 H Glucose 114 H POC Glucose 92 Calculated Osmolality 300.5 Calcium 8.8 Magnesium 2.9 H 06/09/17 11:54 WBC RBC Hgb Hct MCV MCH MCHC RDW Plt Count MPV Neut % (Auto) Lymph % (Auto) [place] % (Auto) Eos % (Auto) Baso % (Auto) Neut # (Auto) Lymph # (Auto) [place] # (Auto) Eos # (Auto) Baso # (Auto) Immature Gran % Nucleated RBC % Immature Gran # Nucleated RBCs # Sodium Potassium Chloride Carbon Dioxide Anion Gap BUN Creatinine GFR Calculation BUN/Creatinine Ratio Glucose POC Glucose 244 H Calculated Osmolality Calcium Magnesium Quality Measures - Stroke Onset of Symptoms Date: 09/05/16 Onset of Symptoms Time: 15:30 Symptom Onset Unknown: No
--- NOTE | 2016-09-22 16:14 | Nephrology Progress Note ---
Nephrology - PN: Subj Interval history: He states his breathing is doing pretty well. No change from yesterday Exam (PN)-Nephrology - Vital Signs Vital signs: Period Temp Pulse Resp BP Sys/[place] Pulse Ox Last 24 Hr 96.8 F-98.1 F 65-68 16-21 109-128/46-64 93-100 Exam: Gen.: Alert and oriented x3. ENT: Pupils equal round reactive to light. EOMs intact. Mucous membranes moist. Neck: Supple. No JVD or bruit. Cardiovascular: Regular rate and rhythm. 2/6 systolic murmur Lungs: Clear left. Pleural drain on the right Abdomen: Soft. Nontender. Positive bowel sounds. No organomegaly Extremities: Trace edema - Lab 09/22/16 03:54 09/22/16 03:54 Most recent lab results ABG pH 7.465 (7.35-7.45) H 09/14/16 06:00 ABG pCO2 28.8 MM HG (35-48) L 09/14/16 06:00 ABG pO2 64.1 MM HG (80-95) L 09/14/16 06:00 ABG HCO3 20.3 MMOL/L (20-26) 09/14/16 06:00 ABG O2 Saturation 93.0 % (95-100) L 09/14/16 06:00 Calcium 8.8 MG/DL (8.5-10.1) 09/22/16 03:54 Magnesium 2.9 MG/DL (1.8-2.4) H 09/22/16 03:54 Assessment and Plan (1) Acute on chronic renal failure Status: Acute Assessment and plan: 86-year-old man with: * CRF stage III. * ARF. creatinine stable * S OB. Markedly improved after drainage of pleural effusion * Aortic stenosis, severe. Preserved LV function * CAD. Prior CABG * Diabetes mellitus * Hypertension Current Visit: Yes (2) Near syncope Status: Acute Current Visit: Yes (3) Pleural effusion Status: Acute Current Visit: Yes (4) Coronary artery disease Status: Chronic Current Visit: Yes Qualifiers: Coronary Disease-Associated Artery/Lesion type: [place] artery [place] vs. transplanted heart: [place] heart Associated angina: without angina Qualified Code(s): I25.10 - Atherosclerotic heart disease of [place] coronary artery without angina pectoris (5) Diabetes mellitus Status: Chronic Current Visit: Yes Qualifiers: Diabetes mellitus type: type 2 (6) Hypertension Status: Chronic Current Visit: Yes Qualifiers: Hypertension type: essential hypertension Qualified Code(s): I10 - Essential (primary) hypertension (7) Severe aortic stenosis Status: Chronic Current Visit: Yes (8) Bradycardia Status: Resolved Current Visit: Yes
--- NOTE | 2016-09-22 16:50 | Cardiology Progress Note ---
Assessment and Plan - Time spent with patient Time spent with patient: Less than 30 minutes (1) Severe aortic stenosis Status: Chronic Assessment and plan: SEE PLAN OF CARE LISTED BELOW. Current Visit: Yes (2) Syncope Status: Acute Assessment and plan: SEE PLAN OF CARE LISTED BELOW Current Visit: Yes (3) Atrial flutter by electrocardiogram Status: Acute Assessment and plan: SEE PLAN OF CARE LISTED BELOW Current Visit: Yes (4) Bradycardia Status: Resolved Assessment and plan: SEE PLAN OF CARE LISTED BELOW Current Visit: Yes (5) Coronary artery disease Status: Chronic Assessment and plan: SEE PLAN OF CARE LISTED BELOW Current Visit: Yes Qualifiers: Coronary Disease-Associated Artery/Lesion type: [place] artery [place] vs. transplanted heart: [place] heart Associated angina: without angina Qualified Code(s): I25.10 - Atherosclerotic heart disease of [place] coronary artery without angina pectoris (6) Hypertension Status: Chronic Assessment and plan: SEE PLAN OF CARE LISTED BELOW Current Visit: Yes (7) Hyperlipidemia Status: Chronic Assessment and plan: SEE PLAN OF CARE LISTED BELOW Current Visit: Yes (8) Diabetes mellitus Status: Chronic Assessment and plan: SEE PLAN OF CARE LISTED BELOW Current Visit: Yes Qualifiers: Diabetes mellitus type: type 2 (9) Acute on chronic renal failure Status: Acute Assessment and plan: SEE PLAN OF CARE LISTED BELOW Current Visit: Yes (10) Leukocytosis Status: Acute Assessment and plan: SEE PLAN OF CARE LISTED BELOW Current Visit: Yes (11) Epistaxis Status: Acute Assessment and plan: SEE PLAN OF CARE LISTED BELOW Current Visit: Yes (12) Pleural effusion Status: Acute Assessment and plan: SEE PLAN OF CARE LISTED BELOW. Current Visit: Yes Cardiology - PN: Subj Interval history: PERINATAL COORDINATOR: DR. GOLDSMITH Mr. Frazier is a 86 year old male with a history of coronary artery disease, hypertension, hyperlipidemia, type 2 diabetes mellitus, chronic kidney disease. He is status post coronary artery bypass grafting August 06 2001 with SINGH to the LAD and vein graft to the circumflex marginal and right coronary arteries. He is status post right carotid endarterectomy July 03, 2002. He was admitted to the hospital after an episode of syncope and prolonged weakness. He was initially in atrial flutter, bradycardia, junctional rhythm, no atrial flutter, with normal conduction. He was on no zackery blocking agents. An echocardiogram was performed with showed severe aortic stenosis with preserved ejection fraction. He had some trivial troponin elevation in the setting of an elevated creatinine. Urine toxicology was negative. 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 Mr. Frazier has had trouble with dyspnea and decreased O2 saturations past couple of days. Pulmonology has seen him in consultation and due to a right pleural effusion, he underwent ultrasound-guided thoracentesis September 15 where he was drained of 800 cc of straw-colored, blood-tinged fluid. He has been seen by CV surgery and will still need a CT angiogram to localize his KAITY if surgery is to be contemplated. At this time, he does not seem ready for surgical consideration. He underwent chest tube placement for recurrent pleural effusion on 09/20/16. Chest x-ray shows resolution of pleural effusion. ASSESSMENT/PLAN: 1. SEVERE AORTIC STENOSIS - Dr. Mehta has been consulted and tentatively plans perform AVR next week. Echocardiogram showed severe aortic stenosis and cardiac catheterization root revealed patency of an internal mammary graft and circumflex graft although the circumflex graft has an ostial stenosis. The right coronary graft is occluded but the [place] right coronary does not have significant obstructive lesions. The procedure is made somewhat more risky by his age, renal dysfunction, and presence of a patent internal mammary graft. CV Surgery plans to try to localize this graft more clearly with CT angiogram at some point when creatinine improves. 2. SYNCOPE - Carotid doppler ultrasound reveals right ICA with 50-69% stenosis. CT of the brain was negative. This could have been related to bradycardia or his aortic stenosis. Neurology has seen him in consultation and does not feel he has suffered a TIA at this time. 3. ATRIAL FLUTTER - CHADSVASC 5. Anticoagulation has been held pending surgery next week. He has been started on a beta demarco and has tolerated this well. 4. BRADYCARDIA - Resolved. Will continue to monitor. 5. CORONARY ARTERY DISEASE - He is status post coronary artery bypass grafting August 06 2001 with SINGH to the LAD and vein graft to the circumflex marginal and right coronary arteries. Cardiac catheterization on 09/13/2016 revealed severe [place] three-vessel and ostial left main coronary artery disease with 2 of 3 bypass grafts patent. There is an ostial pinch in the saphenous vein graft to the obtuse marginal branch. The right coronary artery graft is occluded but the right coronary artery does not have any significant high-grade disease at this time. 6. HYPERTENSION -this is currently well controlled on the current therapy. Will continue to monitor and adjust accordingly. 7. HYPERLIPIDEMIA - Continue lipid lowering agent. FLP revealed triglycerides 98 , cholesterol 127, LDL 60, HDL 54. 8. DIABETES - He is on accuchecks with sliding scale insulin. Continue current plan of care. 9. ACUTE ON CHRONIC RENAL FAILURE - Will continue to monitor BMP. Risk for perioperative complications was discussed with the patient. Creatinine continued to rise and nephrology was consulted. He did have a CT with contrast on 09/15/16. Creatinine is 2.4 today. 10. LEUKOCYTOSIS - He has been afebrile. He completed a week's worth of Cipro. 11. EPISTAXIS - Required packing by ENT last Sunday. He has had no further episodes since. H&H stable. We are currently continuing aspirin and Eliquis. This could be the etiology of the patient's blood-tinged sputum. He has not had any recurrent episodes. 12. PLEURAL EFFUSION - Status post thoracentesis September 15. CT scan yesterday still revealed significant right effusion. Patient is being seen by pulmonary. They feel that this is secondary to patient's congestive heart failure due to his aortic stenosis. It is difficult to diurese patient at this time as patient's creatinine continues to rise, 2.8 today. We will continue to monitor this with daily BMP. Nephrology has been consulted to further assist. He underwent right sided chest tube placement by interventional radiology on 09/20 and put out over 1 liter after insertion. It continues to drain and he reports his breathing has improved. Further plan and addendum to follow by Dr. Goldsmith. Exam (Progress Note) - Constitutional Vitals: Period Temp Pulse Resp BP Sys/[place] Pulse Ox Last 24 Hr 96.8 F-98.6 F 65-68 16-21 107-128/46-64 90-100 Exam: General: Appears chronically ill. HEENT: PERRL, normocephalic, atraumatic. Mucous membranes moist. No jaundice noted. Neck: No JVD/HJR, no thyromegaly or lymphadenopathy noted. Cardiac: Atrial flutter with controlled ventricular rate. Systolic murmur consistent with aortic stenosis. Lungs: Few bibasilar crackles. Right pleural catheter in place. Abdomen: Soft, bowel sounds normoactive. Nontender and nondistended. No abdominal bruit or thrill noted. No masses noted. Extremities: No clubbing, cyanosis noted. No edema noted. Upper extremity pulses 2+. Lower extremity pulses 2+. Capillary refill less than 3 seconds. Skin: No unusual lesions or rashes. No skin breakdown appreciated. Neuro: Awake, alert and oriented 3. Moves all extremities well without hemiparesis or paralysis. No essential tremor is appreciated. Result/EKG - Labs CBC & BMP: 09/22/16 03:54 09/22/16 03:54 Lab Results: I have reviewed the past 24 hour labs Labs: Laboratory Results - last 24 hr 09/21/16 09/22/16 09/22/16 20:46 03:54 03:54 WBC 9.4 RBC 3.18 L Hgb 9.8 L Hct 28.7 L MCV 90.3 MCH 31 MCHC 34.1 RDW 13.4 Plt Count 171 MPV 10.6 Neut % (Auto) 75.7 H Lymph % (Auto) 7.2 L [place] % (Auto) 13.6 H Eos % (Auto) 2.1 Baso % (Auto) 0.2 Neut # (Auto) 7.1 Lymph # (Auto) 0.7 L [place] # (Auto) 1.3 H Eos # (Auto) 0.2 Baso # (Auto) 0.0 Immature Gran % 1.2 Nucleated RBC % 0.0 Immature Gran # 0.11 Nucleated RBCs # 0.00 Sodium 139 Potassium 3.7 Chloride 98 Carbon Dioxide 32 Anion Gap 12.7 BUN 76 H D Creatinine 2.40 H GFR Calculation 25 BUN/Creatinine Ratio 31.00 H Glucose 114 H POC Glucose 281 H Calculated Osmolality 300.5 Calcium 8.8 Magnesium 2.9 H 09/22/16 09/22/16 07:46 11:54 WBC RBC Hgb Hct MCV MCH MCHC RDW Plt Count MPV Neut % (Auto) Lymph % (Auto) [place] % (Auto) Eos % (Auto) Baso % (Auto) Neut # (Auto) Lymph # (Auto) [place] # (Auto) Eos # (Auto) Baso # (Auto) Immature Gran % Nucleated RBC % Immature Gran # Nucleated RBCs # Sodium Potassium Chloride Carbon Dioxide Anion Gap BUN Creatinine GFR Calculation BUN/Creatinine Ratio Glucose POC Glucose 92 244 H Calculated Osmolality Calcium Magnesium - EKG EKG results: interpreted by me (atrial flutter, well controlled rate) Quality Measures - Stroke Onset of Symptoms Date: 09/05/16 Onset of Symptoms Time: 15:30 Symptom Onset Unknown: No
[2016-09-22] MEDS: ATORVASTATIN 80 MG TABLET PO SCH (21:31)
[2016-09-22] MEDS: diphenhydrAMINE CAP 25 MG CAPSULE PO PRN (21:55)
[2016-09-23] MEDS: IPRATROPIUM 500 MCG/2.5 ML NEB RESP TX SCH ×4 (01:50→19:19)
[2016-09-23 05:48] LABS: Basophils % 0.2 % (0.0-0.8); Eosinophils # 0.2 10*3/uL (0.0-0.87); Eosinophils % 1.5 % (0.00-10.9); Hematocrit 29.9 VOL% (42.0-52.0); Hemoglobin 10.2 GM/DL (14.0-18.0); Immature Granulocytes % 0.8 %; Immature Granulocytes Absolute 0.08 #; Lymphocytes # 0.9 10*3/uL (1.4-4.0); Lymphocytes % 8.8 % (21.2-54.2); Mean Corpuscular HGB Conc 34.1 GM/DL (32-36); Mean Corpuscular Hemoglobin 30 PG (27-34); Mean Corpuscular Volume 87.9 FL (87-102); Mean Platelet Volume 10.5 FL (9.6-12.0); Monocytes # 1.1 10*3/uL (0.11-0.8); Monocytes % 10.8 % (1.7-12.7); Neutrophils # 7.8 10*3/uL (1.4-7.4); Neutrophils % 77.9 % (38.7-73.9); Platelet Count 182 T/CUMM (130-400); Red Cell Distribution Width 13.3 % (9.3-17.3)
[2016-09-23 06:12] LABS: Calcium 8.7 MG/DL (8.5-10.1); Magnesium 2.9 MG/DL (1.8-2.4); Potassium 3.5 MMOL/L (3.5-5.1)
--- NOTE | 2016-09-23 08:37 | Cardiothoracic Progress Note ---
Cardiothoracic Subjective Interval history: Patient looks and feels some better. He is clearly breathing more comfortably. His renal function has improved marginally. Overall he seems to be making positive progress I think we will allow this to continue and hopefully will be able to obtain a CT angiogram early next week. Further plans will depend somewhat on that finding. Exam (Progress Note) - Constitutional Vitals: Period Temp Pulse Resp BP Sys/[place] Pulse Ox Last 24 Hr 97.9 F-98.6 F 65-86 16-24 107-125/46-71 90-100 Result/EKG - Labs CBC & BMP: 09/23/16 05:30 09/23/16 05:30 Labs: Laboratory Results - last 24 hr 09/22/16 09/22/16 09/22/16 11:54 16:20 21:45 WBC RBC Hgb Hct MCV MCH MCHC RDW Plt Count MPV Neut % (Auto) Lymph % (Auto) [place] % (Auto) Eos % (Auto) Baso % (Auto) Neut # (Auto) Lymph # (Auto) [place] # (Auto) Eos # (Auto) Baso # (Auto) Immature Gran % Nucleated RBC % Immature Gran # Nucleated RBCs # Sodium Potassium Chloride Carbon Dioxide Anion Gap BUN Creatinine GFR Calculation BUN/Creatinine Ratio Glucose POC Glucose 244 H 216 H 154 H Calculated Osmolality Calcium Magnesium 09/23/16 09/23/16 05:30 05:30 WBC 10.0 RBC 3.40 L Hgb 10.2 L Hct 29.9 L MCV 87.9 MCH 30 MCHC 34.1 RDW 13.3 Plt Count 182 MPV 10.5 Neut % (Auto) 77.9 H Lymph % (Auto) 8.[address] [place] % (Auto) 10.8 Eos % (Auto) 1.5 Baso % (Auto) 0.2 Neut # (Auto) 7.8 H Lymph # (Auto) 0.[address] [place] # (Auto) 1.1 H Eos # (Auto) 0.2 Baso # (Auto) 0.0 Immature Gran % 0.8 Nucleated RBC % 0.0 Immature Gran # 0.08 Nucleated RBCs # 0.00 Sodium 136 Potassium 3.5 Chloride 93 L Carbon Dioxide 33 H Anion Gap 13.5 BUN 70 H Creatinine 2.30 H GFR Calculation 27 BUN/Creatinine Ratio 30.00 H Glucose 106 POC Glucose Calculated Osmolality 292.0 Calcium 8.7 Magnesium 2.9 H Quality Measures - Stroke Onset of Symptoms Date: 09/05/16 Onset of Symptoms Time: 15:30 Symptom Onset Unknown: No
[2016-09-23] MEDS: INSULIN LISPRO 100 UNIT/ML SUBCUT SCH ×4 (08:47→22:13)
[2016-09-23] MEDS: FLUTICASONE 50 MCG NASAL SPRAY 16 GM BOTTLE BOTH NARES SCH ×2 (08:47→22:04)
[2016-09-23] MEDS: INSULIN GLARGINE 100 UNIT/ML SUBCUT SCH (08:48)
[2016-09-23] MEDS: NIACIN 500 MG TABLET PO SCH (08:49)
[2016-09-23] MEDS: SPIRONOLACTONE 25 MG TABLET PO SCH ×2 (08:50→21:58)
[2016-09-23] MEDS: ASPIRIN EC 81 MG TABLET PO SCH (08:50)
[2016-09-23] MEDS: PANTOPRAZOLE 40 MG TABLET PO SCH (08:51)
[2016-09-23] MEDS: METOPROLOL TARTRATE 25 MG TABLET PO SCH ×2 (08:51→22:04)
[2016-09-23] MEDS: GLIMEPIRIDE 4 MG TABLET PO SCH ×2 (08:51→16:02)
[2016-09-23] MEDS: CITRIC ACID/SODIUM CITRATE 30 ML UDCUP PO SCH ×3 (08:53→22:04)
--- NOTE | 2016-09-23 09:44 | Pulmonology Progress Note ---
Pulmonary - PN: Subj Interval history: This 86-year-old white male has congestive heart failure due to aortic stenosis. Also has atherosclerotic heart disease with previous coronary bypass surgery. Needs to have his IV aortic valve replaced. He has a right pleural effusion. His chest x-ray looks a little bit better today as far as the pulmonary edema is concerned. However we gave him Lasix yesterday and his creatinine has risen a little more. I think we would do best to get the right pleural fluid drained in preparation for surgery. Will ask interventional radiology to do this since it appears to be loculated laterally and would be safely done with ultrasound guidance. Patient is not sleeping well. Should tolerate some Ativan at bedtime. Quite anxious. I should note that the reason he has pleural fluid on the right and not the left is that he has had a previous left decortication. 09/18/2016 we have tried to diurese him and it has not been very successful. His creatinine has risen. He had a right thoracentesis with removal of 800 mL of fluid but he had his CT scan yesterday still showed significant right effusion. The pleural fluid is a transudate. Certainly think this is due to congestive heart failure, due to his aortic stenosis. It will be very difficult to treat his heart failure without the valve being replaced. However he is at high risk for surgery given his fragile state and acute kidney injury with Lasix and low cardiac output. Will ask nephrology to see if they can help us with this. Patient at present is about the same as far as her shortness of breath. He is empirically on antibiotics. 09/19/2016 he continues to complain of dyspnea. Primarily says he has trouble breathing through his nose. He is on 2 different nose sprays in his nasal passages appear open on my exam. I think is primarily short of breath related to his congestive heart failure/aortic stenosis. Renal function is a little better. Perhaps getting further out from contrast studies is helping. We do need to try to diurese him further. Nephrology is following as well. 09/20/2016 patient feels a little better sitting up in the chair. However his chest x-ray shows that the right pleural effusion has increased in size. Having a difficult time diuresing him with his creatinine 2.8. Would recommend putting a pleural catheter in the right side to drain this. Hopefully this will help us prep him for possible aortic valve replacement. The pleural effusion is due to congestive heart failure, however they are having a difficult time diuresing him. 09/21/2016 breathing is better since getting the pleural catheter. Chest x-ray today pending. Renal function getting a little better. Hopefully can plan aortic valve surgery soon. 09/22/2016 patient feels a little better. Should be able to tolerate nasal biprong's now. Chest x-ray shows the right pleural effusion has been evacuated. Put out about 200 mL from chest tube since yesterday morning. Need to keep it in for now. Renal function reports are pending from this morning. He does appear to be holding his own layer. Still has some peripheral edema and we need to bump with Lasix again. In my opinion he will need to have aortic valve surgery in order to get back to any meaningful life at home. Otherwise he will be a bed to chair existence. Certainly some risk involved as far as postoperative renal function and/or respiratory failure, but I favor proceeding with surgery next week. 09/23/2016 put out another 400 mL from his chest tube yesterday. Still has peripheral edema. We need to diurese him further. Renal insufficiency makes it difficult. Dr. Mehta wants to do a CT angiogram to further evaluate his aortic arch. His creatinine is down to 2.3. I feel sure further contrast would bump his creatinine up above 3 again and perhaps worse. I do think he would be better off having surgery then not having surgery. I do not think he can go home and come back as he still has a pleural catheter in. We may consider doing a pleurodesis, which is unusual for a transudative type effusion , and only works about half the time in this situation. Exam (Progress Note) - Constitutional Vitals: Period Temp Pulse Resp BP Sys/[place] Pulse Ox Last 24 Hr 97.9 F-99.1 F 65-86 16-24 105-125/46-71 90-100 Exam: Patient's alert, comfortable flat in bed. Vital signs normal. Wearing nasal oxygen. Pupils react to light. Throat clear. Neck supple no bruits. Chest shows a few basilar crackles and some dullness at the right base. Has right pleural catheter in place. Heart normal rate rhythm grade 2/6 systolic murmur at right base. Abdomen soft nontender no masses. Bowel sounds present. Extremities no clubbing or cyanosis. 1+ edema. Calves nontender. Little change from yesterday. Results - Labs CBC & BMP: 09/23/16 05:30 09/23/16 05:30 Lab Results: I have reviewed the past 24 hour labs Assessment and Plan (1) Syncope Status: Acute Assessment and plan: Syncope likely due to cardiac causes related to his aortic stenosis. 09/15/16 likely due to his aortic stenosis. 09/18/2016 again the syncope is likely due to his aortic stenosis. 09/20/2016 no symptoms of postural syncope at this time Current Visit: Yes (2) Chronic kidney disease Status: Chronic Assessment and plan: Creatinine is 2.1. He has had some renal insufficiency for quite some time related to vascular disease and diabetes. At present I think he is ahead on fluid. I will bump him with Lasix. 09/15/16 creatinine up to 2.3 after a dose of Lasix. Afraid to diurese any more vigorously at present. Asking interventional radiology to drain the loculated right effusion. This should help getting prepped for aortic valve replacement. 09/18/2016 creatinine up to 2.8. Difficulty mobilizing right pleural effusion fluid 09/19/2016 renal function is a little better today. Creatinine down to 2.4. May have had a bump in creatinine related to his contrast last week. 09/20/2016 creatinine up to 2.8. 09/21/2016 creatinine down to 2.5. Improving. Hopefully getting further out from contrast 09/22/2016 chemistries pending today. Hopefully can get creatinine back down to around 2. 09/23/2016 creatinine down to 2.3. This despite giving diuretics. Current Visit: Yes (3) Coronary artery disease Status: Chronic Assessment and plan: Previous coronary bypass surgery with additional findings at catheterization this admission. Current Visit: Yes Qualifiers: Coronary Disease-Associated Artery/Lesion type: [place] artery [place] vs. transplanted heart: [place] heart Associated angina: without angina Qualified Code(s): I25.10 - Atherosclerotic heart disease of [place] coronary artery without angina pectoris (4) Pulmonary hypertension Status: Chronic Assessment and plan: This was not quantified on the echo but is likely to be secondary to his left heart disease with aortic stenosis. 09/15/16 this should be due to his aortic stenosis and congestive heart failure. 09/18/2016 secondary to his left heart disease. 09/20/2016 this is due to his left heart disease. 09/21/2016 due to left heart disease. 09/22/2016 this is secondary to his left heart disease, primarily aortic stenosis 09/23/2016 this is secondary to his aortic stenosis. Current Visit: Yes (5) Severe aortic stenosis Status: Chronic Assessment and plan: Has severe aortic stenosis by echo and catheterization. Likely the possible cause of his congestive heart failure and pulmonary hypertension. 09/15/16 hopefully can have surgery when we get him tuned up. 09/18/2016 will need surgery if he can tolerate it. 09/19/2016 hopefully we can get him tuned up where he can tolerate AVR. 09/20/2016 aortic valve surgery is indicated when we can get him tuned up for it. 09/21/2016 need surgery. Trying to get him tuned up for that. If renal function is stable and right pleural effusion totally evacuated, then hopefully could plan sign. 09/22/2016 x-ray is better. Less dyspnea. If renal function is stable, I would be in favor of proceeding with surgery next week. 16 and 17 ideally should be repaired surgically or replaced. He has some chronic bronchitis but does not have severe COPD. 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 Current Visit: Yes (6) Diabetes mellitus Status: Chronic Assessment and plan: Has some hyperglycemia. Adding sliding scale. 09/15/16 glucoses in the 140-200 range. 09/18/2016 glucoses look okay. 09/19/2016 glucoses are fairly well controlled. 09/20/2016 glucoses look better. 09/21/2016 still mildly elevated glucoses. 09/22/2016 glucoses fairly well controlled. 09/23/2016 blood sugars are okay. Current Visit: Yes Qualifiers: Diabetes mellitus type: type 2 (7) Acute bronchitis Status: Acute Assessment and plan: Based on the change in sputum color and elevated white count 16,000 think is reasonable to cover him with antibiotics for this. Will use Atrovent for bronchodilators. 09/15/16 empirically on antibiotics and Atrovent. I think his main problem respiratory escobar is congestive heart failure related to his aortic stenosis. Would not delay surgery for bronchitis in this situation 09/18/2016 on empiric antibiotics. 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 It is sensitive to Cipro. I will change him to oral Cipro. 09/20/2016 I do not hear any rhonchi. He is on oral Cipro. 09/21/2016 bronchitis is improved. Probably needs a couple more days of Cipro. 09/22/2016 he has had a week's worth of antibiotics. Bronchitis is quiet now. We will stop Cipro. 09/23/2016 he has completed antibiotics. Current Visit: Yes
--- NOTE | 2016-09-23 13:25 | Cardiology Progress Note ---
Assessment and Plan (1) Severe aortic stenosis Status: Chronic Assessment and plan: The patient being considered for redo surgery-AVR and single bypass Creatinine slightly better Pleur-evac is working well in helping prevent recurrence of the pleural effusion Potassium is okay Continue current support. at Some point, may be a candidate for AVR and single-vessel bypass Current Visit: Yes (2) Acute bronchitis Status: Acute Current Visit: Yes (3) Acute on chronic renal failure Status: Acute Current Visit: Yes (4) Atrial flutter Status: Acute Current Visit: Yes (5) Epistaxis Status: Acute Current Visit: Yes (6) Hypoxemia Status: Acute Current Visit: Yes (7) Pleural effusion Status: Acute Current Visit: Yes (8) Renal failure Status: Acute Current Visit: Yes (9) Chronic kidney disease Status: Chronic Current Visit: Yes (10) Coronary artery disease Status: Chronic Current Visit: Yes Qualifiers: Coronary Disease-Associated Artery/Lesion type: [place] artery [place] vs. transplanted heart: [place] heart Associated angina: without angina Qualified Code(s): I25.10 - Atherosclerotic heart disease of [place] coronary artery without angina pectoris (11) Diabetes mellitus Status: Chronic Current Visit: Yes Qualifiers: Diabetes mellitus type: type 2 (12) Hyperlipidemia Status: Chronic Current Visit: Yes (13) Unsteady gait Status: Chronic Current Visit: Yes (14) Bradycardia Status: Resolved Current Visit: Yes (15) Hypoalbuminemia Status: Acute Current Visit: Yes Cardiology - PN: Subj Interval history: Patient is asleep. However, he seems to be having minimal dyspnea on exertion and no chest pain., Exam (Progress Note) - Constitutional Vitals: Period Temp Pulse Resp BP Sys/[place] Pulse Ox Last 24 Hr 97.9 F-99.1 F 65-86 16-24 105-125/53-71 90-100 Exam: HEENT: Pupils equal, reactive to light and accommodation Neck: NoJVD or bruit Lungs clear to auscultation Heart: Regular rhythm rate with normal S1 and S2. Apical S4, 2/6 mid-to-late peaking systolic ejection murmur along the right upper sternal border. Abdomen: No hepatosplenomegaly Spine/extremities: No clubbing, cyanosis, or edema Neuro: Nonfocal Psych: No depression or anxiety Result/EKG - Labs CBC & BMP: 09/23/16 05:30 09/23/16 05:30 Labs: Laboratory Results - last 24 hr 09/22/16 09/22/16 09/23/16 16:20 21:45 05:30 WBC RBC Hgb Hct MCV MCH MCHC RDW Plt Count MPV Neut % (Auto) Lymph % (Auto) [place] % (Auto) Eos % (Auto) Baso % (Auto) Neut # (Auto) Lymph # (Auto) [place] # (Auto) Eos # (Auto) Baso # (Auto) Immature Gran % Nucleated RBC % Immature Gran # Nucleated RBCs # Sodium 136 Potassium 3.5 Chloride 93 L Carbon Dioxide 33 H Anion Gap 13.5 BUN 70 H Creatinine 2.30 H GFR Calculation 27 BUN/Creatinine Ratio 30.00 H Glucose 106 POC Glucose 216 H 154 H Calculated Osmolality 292.0 Calcium 8.7 Magnesium 2.9 H 09/23/16 05:30 WBC 10.0 RBC 3.40 L Hgb 10.2 L Hct 29.9 L MCV 87.9 MCH 30 MCHC 34.1 RDW 13.3 Plt Count 182 MPV 10.5 Neut % (Auto) 77.9 H Lymph % (Auto) 8.8 L [place] % (Auto) 10.8 Eos % (Auto) 1.5 Baso % (Auto) 0.2 Neut # (Auto) 7.8 H Lymph # (Auto) 0.9 L [place] # (Auto) 1.1 H Eos # (Auto) 0.2 Baso # (Auto) 0.0 Immature Gran % 0.8 Nucleated RBC % 0.0 Immature Gran # 0.08 Nucleated RBCs # 0.00 Sodium Potassium Chloride Carbon Dioxide Anion Gap BUN Creatinine GFR Calculation BUN/Creatinine Ratio Glucose POC Glucose Calculated Osmolality Calcium Magnesium - EKG EKG results: interpreted by me (Atrial flutter with controlled ventricular response) Quality Measures - Stroke Onset of Symptoms Date: 09/05/16 Onset of Symptoms Time: 15:30 Symptom Onset Unknown: No
[2016-09-23] MEDS: ATORVASTATIN 80 MG TABLET PO SCH (21:57)
[2016-09-23] MEDS: diphenhydrAMINE CAP 25 MG CAPSULE PO PRN (22:14)
[2016-09-24] MEDS: IPRATROPIUM 500 MCG/2.5 ML NEB RESP TX SCH ×4 (00:17→20:13)
[2016-09-24 04:28] LABS: Basophils % 0.3 % (0.0-0.8); Eosinophils # 0.1 10*3/uL (0.0-0.87); Eosinophils % 1.5 % (0.00-10.9); Hematocrit 28.2 VOL% (42.0-52.0); Hemoglobin 9.6 GM/DL (14.0-18.0); Immature Granulocytes % 0.9 %; Immature Granulocytes Absolute 0.09 #; Lymphocytes # 0.8 10*3/uL (1.4-4.0); Lymphocytes % 8.3 % (21.2-54.2); Mean Corpuscular Hemoglobin 30 PG (27-34); Mean Corpuscular Volume 87.6 FL (87-102); Mean Platelet Volume 10.8 FL (9.6-12.0); Monocytes # 1.2 10*3/uL (0.11-0.8); Monocytes % 12.4 % (1.7-12.7); Neutrophils # 7.3 10*3/uL (1.4-7.4); Neutrophils % 76.6 % (38.7-73.9); Platelet Count 164 T/CUMM (130-400); Red Blood Count 3.22 MC/CUMM (3.8-5.5); Red Cell Distribution Width 13.3 % (9.3-17.3); White Blood Count 9.5 T/CUMM (4-12)
[2016-09-24 04:58] LABS: Calcium 8.3 MG/DL (8.5-10.1); Magnesium 2.9 MG/DL (1.8-2.4); Osmolality,Calculated 290.1 MOS/KG (273-304); Potassium 3.3 MMOL/L (3.5-5.1)
--- NOTE | 2016-09-24 08:09 | Cardiothoracic Progress Note ---
Cardiothoracic Subjective Interval history: Patient looks and feels better today. He inadvertently removed his right chest tube but his chest x-ray looks okay. His creatinine is down to 2.1. Overall he appears to be slowly improving and hopefully this will continue. I have encouraged him to be up and active as much as he tolerates it. Continue to follow. Exam (Progress Note) - Constitutional Vitals: Period Temp Pulse Resp BP Sys/[place] Pulse Ox Last 24 Hr 97.4 F-99.3 F 61-73 16-22 111-122/51-64 93-100 Result/EKG - Labs CBC & BMP: 09/24/16 03:13 09/24/16 03:13 Labs: Laboratory Results - last 24 hr 09/23/16 09/23/16 09/23/16 07:32 11:38 15:44 WBC RBC Hgb Hct MCV MCH MCHC RDW Plt Count MPV Neut % (Auto) Lymph % (Auto) [place] % (Auto) Eos % (Auto) Baso % (Auto) Neut # (Auto) Lymph # (Auto) [place] # (Auto) Eos # (Auto) Baso # (Auto) Immature Gran % Nucleated RBC % Immature Gran # Nucleated RBCs # Sodium Potassium Chloride Carbon Dioxide Anion Gap BUN Creatinine GFR Calculation BUN/Creatinine Ratio Glucose POC Glucose 108 H 245 H 403 H Calculated Osmolality Calcium Magnesium 09/23/16 09/23/16 09/24/16 18:03 20:36 03:13 WBC 9.5 RBC 3.22 L Hgb 9.6 L Hct 28.2 L MCV 87.6 MCH 30 MCHC 34.0 RDW 13.3 Plt Count 164 MPV 10.8 Neut % (Auto) 76.6 H Lymph % (Auto) 8.3 L [place] % (Auto) 12.4 Eos % (Auto) 1.5 Baso % (Auto) 0.3 Neut # (Auto) 7.3 Lymph # (Auto) 0.8 L [place] # (Auto) 1.2 H Eos # (Auto) 0.1 Baso # (Auto) 0.0 Immature Gran % 0.9 Nucleated RBC % 0.0 Immature Gran # 0.09 Nucleated RBCs # 0.00 Sodium Potassium Chloride Carbon Dioxide Anion Gap BUN Creatinine GFR Calculation BUN/Creatinine Ratio Glucose POC Glucose 368 H 213 H Calculated Osmolality Calcium Magnesium 09/24/16 03:13 WBC RBC Hgb Hct MCV MCH MCHC RDW Plt Count MPV Neut % (Auto) Lymph % (Auto) [place] % (Auto) Eos % (Auto) Baso % (Auto) Neut # (Auto) Lymph # (Auto) [place] # (Auto) Eos # (Auto) Baso # (Auto) Immature Gran % Nucleated RBC % Immature Gran # Nucleated RBCs # Sodium 135 L Potassium 3.3 L Chloride 93 L Carbon Dioxide 34 H Anion Gap 11.3 BUN 66 H Creatinine 2.10 H GFR Calculation 31 BUN/Creatinine Ratio 31.00 H Glucose 134 H POC Glucose Calculated Osmolality 290.1 Calcium 8.3 L Magnesium 2.9 H Quality Measures - Stroke Onset of Symptoms Date: 09/05/16 Onset of Symptoms Time: 15:30 Symptom Onset Unknown: No
[2016-09-24] MEDS: INSULIN LISPRO 100 UNIT/ML SUBCUT SCH ×4 (09:04→21:34)
--- NOTE | 2016-09-24 09:11 | XRay Report ---
2 view chest. Indication: Status post chest tube removal. Comparison: September 22, 2016. The heart is enlarged. Postmedian sternotomy. There are bilateral pleural effusions, left greater than right, with an increase on the left side compared to the previous study. There is decreased air within the right pleural space. A small amount of pneumothorax is still visible at the right lung apex, measuring about 4 mm. There are areas of atelectasis at the right mid and lower lung field. This is not changed significantly. Overall, the interstitial markings have increased. Osseous structures are stable. Impression: 1. Decrease in still visible right-sided pneumothorax. 2. Increase in left-sided pleural effusion. 3. Increased bilateral interstitial infiltrates, which could be related to interstitial edema or pneumonia. PROCEDURE INTERPRETED AT [facility] DEPARTMENT OF RADIOLOGY Final Report Signed by: Dr. Jennie Cutler
[2016-09-24] MEDS: NIACIN 500 MG TABLET PO SCH (09:37)
[2016-09-24] MEDS: METOPROLOL TARTRATE 25 MG TABLET PO SCH ×2 (09:37→21:34)
[2016-09-24] MEDS: ASPIRIN EC 81 MG TABLET PO SCH (09:38)
[2016-09-24] MEDS: GLIMEPIRIDE 4 MG TABLET PO SCH ×2 (09:38→16:47)
[2016-09-24] MEDS: PANTOPRAZOLE 40 MG TABLET PO SCH (09:38)
[2016-09-24] MEDS: INSULIN GLARGINE 100 UNIT/ML SUBCUT SCH (09:38)
[2016-09-24] MEDS: SPIRONOLACTONE 25 MG TABLET PO SCH ×2 (09:38→21:43)
[2016-09-24] MEDS: FLUTICASONE 50 MCG NASAL SPRAY 16 GM BOTTLE BOTH NARES SCH ×2 (09:39→21:34)
[2016-09-24] MEDS: CITRIC ACID/SODIUM CITRATE 30 ML UDCUP PO SCH ×3 (09:39→21:42)
[2016-09-24] MEDS: FUROSEMIDE 40 MG/4 ML VIAL IV SCH (10:25)
--- NOTE | 2016-09-24 10:28 | Pulmonology Progress Note ---
Pulmonary - PN: Subj Interval history: This 86-year-old white male has congestive heart failure due to aortic stenosis. Also has atherosclerotic heart disease with previous coronary bypass surgery. Needs to have his IV aortic valve replaced. He has a right pleural effusion. His chest x-ray looks a little bit better today as far as the pulmonary edema is concerned. However we gave him Lasix yesterday and his creatinine has risen a little more. I think we would do best to get the right pleural fluid drained in preparation for surgery. Will ask interventional radiology to do this since it appears to be loculated laterally and would be safely done with ultrasound guidance. Patient is not sleeping well. Should tolerate some Ativan at bedtime. Quite anxious. I should note that the reason he has pleural fluid on the right and not the left is that he has had a previous left decortication. 09/18/2016 we have tried to diurese him and it has not been very successful. His creatinine has risen. He had a right thoracentesis with removal of 800 mL of fluid but he had his CT scan yesterday still showed significant right effusion. The pleural fluid is a transudate. Certainly think this is due to congestive heart failure, due to his aortic stenosis. It will be very difficult to treat his heart failure without the valve being replaced. However he is at high risk for surgery given his fragile state and acute kidney injury with Lasix and low cardiac output. Will ask nephrology to see if they can help us with this. Patient at present is about the same as far as her shortness of breath. He is empirically on antibiotics. 09/19/2016 he continues to complain of dyspnea. Primarily says he has trouble breathing through his nose. He is on 2 different nose sprays in his nasal passages appear open on my exam. I think is primarily short of breath related to his congestive heart failure/aortic stenosis. Renal function is a little better. Perhaps getting further out from contrast studies is helping. We do need to try to diurese him further. Nephrology is following as well. 09/20/2016 patient feels a little better sitting up in the chair. However his chest x-ray shows that the right pleural effusion has increased in size. Having a difficult time diuresing him with his creatinine 2.8. Would recommend putting a pleural catheter in the right side to drain this. Hopefully this will help us prep him for possible aortic valve replacement. The pleural effusion is due to congestive heart failure, however they are having a difficult time diuresing him. 09/21/2016 breathing is better since getting the pleural catheter. Chest x-ray today pending. Renal function getting a little better. Hopefully can plan aortic valve surgery soon. 09/22/2016 patient feels a little better. Should be able to tolerate nasal biprong's now. Chest x-ray shows the right pleural effusion has been evacuated. Put out about 200 mL from chest tube since yesterday morning. Need to keep it in for now. Renal function reports are pending from this morning. He does appear to be holding his own layer. Still has some peripheral edema and we need to bump with Lasix again. In my opinion he will need to have aortic valve surgery in order to get back to any meaningful life at home. Otherwise he will be a bed to chair existence. Certainly some risk involved as far as postoperative renal function and/or respiratory failure, but I favor proceeding with surgery next week. 09/23/2016 put out another 400 mL from his chest tube yesterday. Still has peripheral edema. We need to diurese him further. Renal insufficiency makes it difficult. Dr. Mehta wants to do a CT angiogram to further evaluate his aortic arch. His creatinine is down to 2.3. I feel sure further contrast would bump his creatinine up above 3 again and perhaps worse. I do think he would be better off having surgery then not having surgery. I do not think he can go home and come back as he still has a pleural catheter in. We may consider doing a pleurodesis, which is unusual for a transudative type effusion , and only works about half the time in this situation. 09/24/2016 his right pleural catheter came out during the night. Chest x-ray this morning shows the right lung well expanded. He does have some interstitial edema and some interstitial scarring. Creatinine has come down further to 2.1. We need to try to diurese him further. Would not replace the pleural catheter at this point. Exam (Progress Note) - Constitutional Vitals: Period Temp Pulse Resp BP Sys/[place] Pulse Ox Last 24 Hr 97.4 F-99.3 F 61-73 16-22 111-122/51-64 93-100 Exam: Patient's alert, comfortable flat in bed. Vital signs normal. Wearing nasal oxygen. Pupils react to light. Throat clear. Neck supple no bruits. Chest shows a few basilar crackles at the right base. Heart normal rate rhythm grade 2/6 systolic murmur at right base. Abdomen soft nontender no masses. Bowel sounds present. Extremities no clubbing or cyanosis. 1+ edema. Calves nontender. Results - Labs CBC & BMP: 09/24/16 03:13 09/24/16 03:13 Lab Results: I have reviewed the past 24 hour labs - Diagnostic Findings Procedure: Chest x-ray: image reviewed by me (No pleural effusion. Right chest tube is out. There is some interstitial scarring at both bases. May be a little wet still) Assessment and Plan (1) Syncope Status: Acute Assessment and plan: Syncope likely due to cardiac causes related to his aortic stenosis. 09/15/16 likely due to his aortic stenosis. 09/18/2016 again the syncope is likely due to his aortic stenosis. 09/20/2016 no symptoms of postural syncope at this time Current Visit: Yes (2) Chronic kidney disease Status: Chronic Assessment and plan: Creatinine is 2.1. He has had some renal insufficiency for quite some time related to vascular disease and diabetes. At present I think he is ahead on fluid. I will bump him with Lasix. 09/15/16 creatinine up to 2.3 after a dose of Lasix. Afraid to diurese any more vigorously at present. Asking interventional radiology to drain the loculated right effusion. This should help getting prepped for aortic valve replacement. 09/18/2016 creatinine up to 2.8. Difficulty mobilizing right pleural effusion fluid 09/19/2016 renal function is a little better today. Creatinine down to 2.4. May have had a bump in creatinine related to his contrast last week. 09/20/2016 creatinine up to 2.8. 09/21/2016 creatinine down to 2.5. Improving. Hopefully getting further out from contrast 09/22/2016 chemistries pending today. Hopefully can get creatinine back down to around 2. 09/23/2016 creatinine down to 2.3. This despite giving diuretics. 09/24/2016 creatinine down to 2.1. Current Visit: Yes (3) Coronary artery disease Status: Chronic Assessment and plan: Previous coronary bypass surgery with additional findings at catheterization this admission. Current Visit: Yes Qualifiers: Coronary Disease-Associated Artery/Lesion type: [place] artery [place] vs. transplanted heart: [place] heart Associated angina: without angina Qualified Code(s): I25.10 - Atherosclerotic heart disease of [place] coronary artery without angina pectoris (4) Pulmonary hypertension Status: Chronic Assessment and plan: This was not quantified on the echo but is likely to be secondary to his left heart disease with aortic stenosis. 09/15/16 this should be due to his aortic stenosis and congestive heart failure. 09/18/2016 secondary to his left heart disease. 09/20/2016 this is due to his left heart disease. 09/21/2016 due to left heart disease. 09/22/2016 this is secondary to his left heart disease, primarily aortic stenosis 09/23/2016 this is secondary to his aortic stenosis. 09/24/2016 secondary to left heart disease. Current Visit: Yes (5) Severe aortic stenosis Status: Chronic Assessment and plan: Has severe aortic stenosis by echo and catheterization. Likely the possible cause of his congestive heart failure and pulmonary hypertension. 09/15/16 hopefully can have surgery when we get him tuned up. 09/18/2016 will need surgery if he can tolerate it. 09/19/2016 hopefully we can get him tuned up where he can tolerate AVR. 09/20/2016 aortic valve surgery is indicated when we can get him tuned up for it. 09/21/2016 need surgery. Trying to get him tuned up for that. If renal function is stable and right pleural effusion totally evacuated, then hopefully could plan sign. 09/22/2016 x-ray is better. Less dyspnea. If renal function is stable, I would be in favor of proceeding with surgery next week. 09/23/16 ideally should be repaired surgically or replaced. He has some chronic bronchitis but does not have severe COPD. 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 09/24/2016 again trying to tune him up so he can have his aortic valve replaced or repaired. Current Visit: Yes (6) Diabetes mellitus Status: Chronic Assessment and plan: Has some hyperglycemia. Adding sliding scale. 09/15/16 glucoses in the 140-200 range. 09/18/2016 glucoses look okay. 09/19/2016 glucoses are fairly well controlled. 09/20/2016 glucoses look better. 09/21/2016 still mildly elevated glucoses. 09/22/2016 glucoses fairly well controlled. 09/23/2016 blood sugars are okay. 09/24/2016 glucoses are a little high. Adjust insulin, increase Lantus to 15 units. Current Visit: Yes Qualifiers: Diabetes mellitus type: type 2 (7) Acute bronchitis Status: Resolved Assessment and plan: Based on the change in sputum color and elevated white count 16,000 think is reasonable to cover him with antibiotics for this. Will use Atrovent for bronchodilators. 09/15/16 empirically on antibiotics and Atrovent. I think his main problem respiratory escobar is congestive heart failure related to his aortic stenosis. Would not delay surgery for bronchitis in this situation 09/18/2016 on empiric antibiotics. 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 It is sensitive to Cipro. I will change him to oral Cipro. 09/20/2016 I do not hear any rhonchi. He is on oral Cipro. 09/21/2016 bronchitis is improved. Probably needs a couple more days of Cipro. 09/22/2016 he has had a week's worth of antibiotics. Bronchitis is quiet now. We will stop Cipro. 09/23/2016 he has completed antibiotics. Current Visit: Yes
--- NOTE | 2016-09-24 17:26 | Cardiology Progress Note ---
Assessment and Plan (1) Severe aortic stenosis Status: Chronic Assessment and plan: The patient being considered for redo surgery-AVR and single bypass Creatinine slightly better Pleur-evac is working well in helping prevent recurrence of the pleural effusion Potassium is okay Continue current support. at Some point, may be a candidate for AVR and single-vessel bypass 09/24/16 Renal function shows slight improvement Potassium is low. We will give some supplement if not already done X-ray looked okay so not replace the chest tube Trying to continue to optimize patient to get a CT of the chest for Dr. Mehta and then to get the surgery Current Visit: Yes (2) Acute bronchitis Status: Resolved Current Visit: Yes (3) Acute on chronic renal failure Status: Acute Current Visit: Yes (4) Atrial flutter Status: Acute Current Visit: Yes (5) Epistaxis Status: Acute Current Visit: Yes (6) Hypoxemia Status: Acute Current Visit: Yes (7) Pleural effusion Status: Acute Current Visit: Yes (8) Renal failure Status: Acute Current Visit: Yes (9) Chronic kidney disease Status: Chronic Current Visit: Yes (10) Coronary artery disease Status: Chronic Current Visit: Yes Qualifiers: Coronary Disease-Associated Artery/Lesion type: [place] artery [place] vs. transplanted heart: [place] heart Associated angina: without angina Qualified Code(s): I25.10 - Atherosclerotic heart disease of [place] coronary artery without angina pectoris (11) Diabetes mellitus Status: Chronic Current Visit: Yes Qualifiers: Diabetes mellitus type: type 2 (12) Hyperlipidemia Status: Chronic Current Visit: Yes (13) Unsteady gait Status: Chronic Current Visit: Yes (14) Bradycardia Status: Resolved Current Visit: Yes (15) Hypoalbuminemia Status: Acute Current Visit: Yes Cardiology - PN: Subj Interval history: No chest pain. No recurrence of shortness breath with a pleural VAC out. Exam (Progress Note) - Constitutional Vitals: Period Temp Pulse Resp BP Sys/[place] Pulse Ox Last 24 Hr 97.4 F-99.3 F 63-69 16-22 106-122/51-64 92-98 Exam: HEENT: Pupils equal, reactive to light and accommodation Neck: NoJVD or bruit Lungs clear to auscultation Heart: Regular rhythm rate with normal S1 and S2. Apical S4, 2/6 mid-to-late peaking systolic ejection murmur along the right upper sternal border. Abdomen: No hepatosplenomegaly Spine/extremities: No clubbing, cyanosis, or edema Neuro: Nonfocal Psych: No depression or anxiety Result/EKG - Labs CBC & BMP: 09/24/16 03:13 09/24/16 03:13 Lab Results: I have reviewed the past 24 hour labs Labs: Laboratory Results - last 24 hr 09/23/16 09/23/16 09/24/16 18:03 20:36 03:13 WBC 9.5 RBC 3.22 L Hgb 9.6 L Hct 28.2 L MCV 87.6 MCH 30 MCHC 34.0 RDW 13.3 Plt Count 164 MPV 10.8 Neut % (Auto) 76.6 H Lymph % (Auto) 8.3 L [place] % (Auto) 12.4 Eos % (Auto) 1.5 Baso % (Auto) 0.3 Neut # (Auto) 7.3 Lymph # (Auto) 0.8 L [place] # (Auto) 1.2 H Eos # (Auto) 0.1 Baso # (Auto) 0.0 Immature Gran % 0.9 Nucleated RBC % 0.0 Immature Gran # 0.09 Nucleated RBCs # 0.00 Sodium Potassium Chloride Carbon Dioxide Anion Gap BUN Creatinine GFR Calculation BUN/Creatinine Ratio Glucose POC Glucose 368 H 213 H Calculated Osmolality Calcium Magnesium 09/24/16 09/24/16 09/24/16 03:13 07:37 11:18 WBC RBC Hgb Hct MCV MCH MCHC RDW Plt Count MPV Neut % (Auto) Lymph % (Auto) [place] % (Auto) Eos % (Auto) Baso % (Auto) Neut # (Auto) Lymph # (Auto) [place] # (Auto) Eos # (Auto) Baso # (Auto) Immature Gran % Nucleated RBC % Immature Gran # Nucleated RBCs # Sodium 135 L Potassium 3.3 L Chloride 93 L Carbon Dioxide 34 H Anion Gap 11.3 BUN 66 H Creatinine 2.10 H GFR Calculation 31 BUN/Creatinine Ratio 31.00 H Glucose 134 H POC Glucose 146 H 331 H Calculated Osmolality 290.1 Calcium 8.3 L Magnesium 2.9 H 09/24/16 16:25 WBC RBC Hgb Hct MCV MCH MCHC RDW Plt Count MPV Neut % (Auto) Lymph % (Auto) [place] % (Auto) Eos % (Auto) Baso % (Auto) Neut # (Auto) Lymph # (Auto) [place] # (Auto) Eos # (Auto) Baso # (Auto) Immature Gran % Nucleated RBC % Immature Gran # Nucleated RBCs # Sodium Potassium Chloride Carbon Dioxide Anion Gap BUN Creatinine GFR Calculation BUN/Creatinine Ratio Glucose POC Glucose 167 H Calculated Osmolality Calcium Magnesium Quality Measures - Stroke Onset of Symptoms Date: 09/05/16 Onset of Symptoms Time: 15:30 Symptom Onset Unknown: No
[2016-09-24] MEDS: diphenhydrAMINE CAP 25 MG CAPSULE PO PRN (21:33)
[2016-09-24] MEDS: ATORVASTATIN 80 MG TABLET PO SCH (21:39)
[2016-09-25] MEDS: IPRATROPIUM 500 MCG/2.5 ML NEB RESP TX SCH ×4 (01:27→20:08)
[2016-09-25 04:04] LABS: Basophils % 0.2 % (0.0-0.8); Eosinophils % 0.3 % (0.00-10.9); Hematocrit 28.9 VOL% (42.0-52.0); Hemoglobin 9.8 GM/DL (14.0-18.0); Immature Granulocytes % 0.7 %; Immature Granulocytes Absolute 0.07 #; Lymphocytes # 0.5 10*3/uL (1.4-4.0); Lymphocytes % 5.5 % (21.2-54.2); Mean Corpuscular HGB Conc 33.9 GM/DL (32-36); Mean Corpuscular Hemoglobin 30 PG (27-34); Mean Corpuscular Volume 88.4 FL (87-102); Mean Platelet Volume 10.9 FL (9.6-12.0); Monocytes # 0.9 10*3/uL (0.11-0.8); Monocytes % 9.1 % (1.7-12.7); Neutrophils # 8.2 10*3/uL (1.4-7.4); Neutrophils % 84.2 % (38.7-73.9); Platelet Count 158 T/CUMM (130-400); Red Blood Count 3.27 MC/CUMM (3.8-5.5); Red Cell Distribution Width 13.6 % (9.3-17.3); White Blood Count 9.7 T/CUMM (4-12)
[2016-09-25 04:18] LABS: Calcium 8.3 MG/DL (8.5-10.1); Magnesium 2.8 MG/DL (1.8-2.4); Osmolality,Calculated 291.8 MOS/KG (273-304); Potassium 3.2 MMOL/L (3.5-5.1)
--- NOTE | 2016-09-25 06:21 | Cardiothoracic Progress Note ---
Cardiothoracic Subjective Interval history: Patient is slowly getting better. He has tolerated having his chest tube removed. He is starting to become a little more active. Vital signs are stable and is breathing comfortably and his creatinine is down to 1.9 today. I am going to go ahead and order a CT angiogram for tomorrow morning unless cardiology and nephrology thinks that his kidneys would be unable to tolerate a dye load. Exam (Progress Note) - Constitutional Vitals: Period Temp Pulse Resp BP Sys/[place] Pulse Ox Last 24 Hr 97.4 F-99.1 F 63-95 16-22 106-139/51-60 90-98 Result/EKG - Labs CBC & BMP: 09/25/16 02:52 09/25/16 02:52 Labs: Laboratory Results - last 24 hr 09/24/16 09/24/16 09/24/16 07:37 11:18 16:25 WBC RBC Hgb Hct MCV MCH MCHC RDW Plt Count MPV Neut % (Auto) Lymph % (Auto) [place] % (Auto) Eos % (Auto) Baso % (Auto) Neut # (Auto) Lymph # (Auto) [place] # (Auto) Eos # (Auto) Baso # (Auto) Immature Gran % Nucleated RBC % Immature Gran # Nucleated RBCs # Sodium Potassium Chloride Carbon Dioxide Anion Gap BUN Creatinine GFR Calculation BUN/Creatinine Ratio Glucose POC Glucose 146 H 331 H 167 H Calculated Osmolality Calcium Magnesium 09/24/16 09/25/16 09/25/16 21:00 02:52 02:52 WBC 9.7 RBC 3.27 L Hgb 9.8 L Hct 28.9 L MCV 88.4 MCH 30 MCHC 33.9 RDW 13.6 Plt Count 158 MPV 10.9 Neut % (Auto) 84.2 H Lymph % (Auto) 5.5 L [place] % (Auto) 9.1 Eos % (Auto) 0.3 Baso % (Auto) 0.2 Neut # (Auto) 8.2 H Lymph # (Auto) 0.5 L [place] # (Auto) 0.9 H Eos # (Auto) 0.0 Baso # (Auto) 0.0 Immature Gran % 0.7 Nucleated RBC % 0.0 Immature Gran # 0.07 Nucleated RBCs # 0.00 Sodium 137 Potassium 3.2 L Chloride 94 L Carbon Dioxide 33 H Anion Gap 13.2 BUN 55 H D Creatinine 1.90 H GFR Calculation 35 BUN/Creatinine Ratio 28.00 H Glucose 178 H POC Glucose 200 H Calculated Osmolality 291.8 Calcium 8.3 L Magnesium 2.8 H Quality Measures - Stroke Onset of Symptoms Date: 09/05/16 Onset of Symptoms Time: 15:30 Symptom Onset Unknown: No
--- NOTE | 2016-09-25 09:46 | Pulmonology Progress Note ---
Pulmonary - PN: Subj Interval history: This 86-year-old white male has congestive heart failure due to aortic stenosis. Also has atherosclerotic heart disease with previous coronary bypass surgery. Needs to have his IV aortic valve replaced. He has a right pleural effusion. His chest x-ray looks a little bit better today as far as the pulmonary edema is concerned. However we gave him Lasix yesterday and his creatinine has risen a little more. I think we would do best to get the right pleural fluid drained in preparation for surgery. Will ask interventional radiology to do this since it appears to be loculated laterally and would be safely done with ultrasound guidance. Patient is not sleeping well. Should tolerate some Ativan at bedtime. Quite anxious. I should note that the reason he has pleural fluid on the right and not the left is that he has had a previous left decortication. 09/18/2016 we have tried to diurese him and it has not been very successful. His creatinine has risen. He had a right thoracentesis with removal of 800 mL of fluid but he had his CT scan yesterday still showed significant right effusion. The pleural fluid is a transudate. Certainly think this is due to congestive heart failure, due to his aortic stenosis. It will be very difficult to treat his heart failure without the valve being replaced. However he is at high risk for surgery given his fragile state and acute kidney injury with Lasix and low cardiac output. Will ask nephrology to see if they can help us with this. Patient at present is about the same as far as her shortness of breath. He is empirically on antibiotics. 09/19/2016 he continues to complain of dyspnea. Primarily says he has trouble breathing through his nose. He is on 2 different nose sprays in his nasal passages appear open on my exam. I think is primarily short of breath related to his congestive heart failure/aortic stenosis. Renal function is a little better. Perhaps getting further out from contrast studies is helping. We do need to try to diurese him further. Nephrology is following as well. 09/20/2016 patient feels a little better sitting up in the chair. However his chest x-ray shows that the right pleural effusion has increased in size. Having a difficult time diuresing him with his creatinine 2.8. Would recommend putting a pleural catheter in the right side to drain this. Hopefully this will help us prep him for possible aortic valve replacement. The pleural effusion is due to congestive heart failure, however they are having a difficult time diuresing him. 09/21/2016 breathing is better since getting the pleural catheter. Chest x-ray today pending. Renal function getting a little better. Hopefully can plan aortic valve surgery soon. 09/22/2016 patient feels a little better. Should be able to tolerate nasal biprong's now. Chest x-ray shows the right pleural effusion has been evacuated. Put out about 200 mL from chest tube since yesterday morning. Need to keep it in for now. Renal function reports are pending from this morning. He does appear to be holding his own layer. Still has some peripheral edema and we need to bump with Lasix again. In my opinion he will need to have aortic valve surgery in order to get back to any meaningful life at home. Otherwise he will be a bed to chair existence. Certainly some risk involved as far as postoperative renal function and/or respiratory failure, but I favor proceeding with surgery next week. 09/23/2016 put out another 400 mL from his chest tube yesterday. Still has peripheral edema. We need to diurese him further. Renal insufficiency makes it difficult. Dr. Mehta wants to do a CT angiogram to further evaluate his aortic arch. His creatinine is down to 2.3. I feel sure further contrast would bump his creatinine up above 3 again and perhaps worse. I do think he would be better off having surgery then not having surgery. I do not think he can go home and come back as he still has a pleural catheter in. We may consider doing a pleurodesis, which is unusual for a transudative type effusion , and only works about half the time in this situation. 09/24/2016 his right pleural catheter came out during the night. Chest x-ray this morning shows the right lung well expanded. He does have some interstitial edema and some interstitial scarring. Creatinine has come down further to 2.1. We need to try to diurese him further. Would not replace the pleural catheter at this point. 09/25/2016 patient needs to be more active. Creatinine is come down to 1.9. Plans are for a CT angiogram of the chest tomorrow. Will need to watch renal function closely after that. Since the CT is planned I will not order chest x- ray Exam (Progress Note) - Constitutional Vitals: Period Temp Pulse Resp BP Sys/[place] Pulse Ox Last 24 Hr 97.7 F-99.2 F 63-95 18-22 106-139/50-60 90-98 Exam: Patient's alert, comfortable flat in bed. Vital signs normal. Wearing nasal oxygen. Pupils react to light. Throat clear. Neck supple no bruits. Chest shows a few basilar crackles at the right base. Heart normal rate rhythm grade 2/6 systolic murmur at right base. Abdomen soft nontender no masses. Bowel sounds present. Extremities no clubbing or cyanosis. 1+ edema. Calves nontender. Little change from yesterday. Results - Labs CBC & BMP: 09/25/16 02:52 09/25/16 02:52 Lab Results: I have reviewed the past 24 hour labs Assessment and Plan (1) Syncope Status: Acute Assessment and plan: Syncope likely due to cardiac causes related to his aortic stenosis. 09/15/16 likely due to his aortic stenosis. 09/18/2016 again the syncope is likely due to his aortic stenosis. 09/20/2016 no symptoms of postural syncope at this time Current Visit: Yes (2) Chronic kidney disease Status: Chronic Assessment and plan: Creatinine is 2.1. He has had some renal insufficiency for quite some time related to vascular disease and diabetes. At present I think he is ahead on fluid. I will bump him with Lasix. 09/15/16 creatinine up to 2.3 after a dose of Lasix. Afraid to diurese any more vigorously at present. Asking interventional radiology to drain the loculated right effusion. This should help getting prepped for aortic valve replacement. 09/18/2016 creatinine up to 2.8. Difficulty mobilizing right pleural effusion fluid 09/19/2016 renal function is a little better today. Creatinine down to 2.4. May have had a bump in creatinine related to his contrast last week. 09/20/2016 creatinine up to 2.8. 09/21/2016 creatinine down to 2.5. Improving. Hopefully getting further out from contrast 09/22/2016 chemistries pending today. Hopefully can get creatinine back down to around 2. 09/23/2016 creatinine down to 2.3. This despite giving diuretics. 09/24/2016 creatinine down to 2.1. 09/25/2016 creatinine down to 1.9. This is about baseline for him. Current Visit: Yes (3) Coronary artery disease Status: Chronic Assessment and plan: Previous coronary bypass surgery with additional findings at catheterization this admission. 09/25/2016 patient not having any active angina. Current Visit: Yes Qualifiers: Coronary Disease-Associated Artery/Lesion type: [place] artery [place] vs. transplanted heart: [place] heart Associated angina: without angina Qualified Code(s): I25.10 - Atherosclerotic heart disease of [place] coronary artery without angina pectoris (4) Pulmonary hypertension Status: Chronic Assessment and plan: This was not quantified on the echo but is likely to be secondary to his left heart disease with aortic stenosis. 09/15/16 this should be due to his aortic stenosis and congestive heart failure. 09/18/2016 secondary to his left heart disease. 09/20/2016 this is due to his left heart disease. 09/21/2016 due to left heart disease. 09/22/2016 this is secondary to his left heart disease, primarily aortic stenosis 09/23/2016 this is secondary to his aortic stenosis. 09/24/2016 secondary to left heart disease. Current Visit: Yes (5) Severe aortic stenosis Status: Chronic Assessment and plan: Has severe aortic stenosis by echo and catheterization. Likely the possible cause of his congestive heart failure and pulmonary hypertension. 09/15/16 hopefully can have surgery when we get him tuned up. 09/18/2016 will need surgery if he can tolerate it. 09/19/2016 hopefully we can get him tuned up where he can tolerate AVR. 09/20/2016 aortic valve surgery is indicated when we can get him tuned up for it. 09/21/2016 need surgery. Trying to get him tuned up for that. If renal function is stable and right pleural effusion totally evacuated, then hopefully could plan sign. 09/22/2016 x-ray is better. Less dyspnea. If renal function is stable, I would be in favor of proceeding with surgery next week. 09/23/16 ideally should be repaired surgically or replaced. He has some chronic bronchitis but does not have severe COPD. 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 09/24/2016 again trying to tune him up so he can have his aortic valve replaced or repaired. 09/25/2016 trying to get him to the point where he can have his aortic valve replaced or repaired. Needs more physical activity. Current Visit: Yes (6) Diabetes mellitus Status: Chronic Assessment and plan: Has some hyperglycemia. Adding sliding scale. 09/15/16 glucoses in the 140-200 range. 09/18/2016 glucoses look okay. 09/19/2016 glucoses are fairly well controlled. 09/20/2016 glucoses look better. 09/21/2016 still mildly elevated glucoses. 09/22/2016 glucoses fairly well controlled. 09/23/2016 blood sugars are okay. 09/24/2016 glucoses are a little high. Adjust insulin, increase Lantus to 15 units. 09/25/2016 glucoses a little better. Current Visit: Yes Qualifiers: Diabetes mellitus type: type 2 (7) Acute bronchitis Status: Resolved Assessment and plan: Based on the change in sputum color and elevated white count 16,000 think is reasonable to cover him with antibiotics for this. Will use Atrovent for bronchodilators. 09/15/16 empirically on antibiotics and Atrovent. I think his main problem respiratory escobar is congestive heart failure related to his aortic stenosis. Would not delay surgery for bronchitis in this situation 09/18/2016 on empiric antibiotics. 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 It is sensitive to Cipro. I will change him to oral Cipro. 09/20/2016 I do not hear any rhonchi. He is on oral Cipro. 09/21/2016 bronchitis is improved. Probably needs a couple more days of Cipro. 09/22/2016 he has had a week's worth of antibiotics. Bronchitis is quiet now. We will stop Cipro. 09/23/2016 he has completed antibiotics. 09/25/2016 he is not coughing at present. Current Visit: Yes
[2016-09-25] MEDS: CITRIC ACID/SODIUM CITRATE 30 ML UDCUP PO SCH ×3 (10:42→21:05)
[2016-09-25] MEDS: METOPROLOL TARTRATE 25 MG TABLET PO SCH ×2 (10:43→21:04)
[2016-09-25] MEDS: GLIMEPIRIDE 4 MG TABLET PO SCH ×2 (10:43→17:54)
[2016-09-25] MEDS: SPIRONOLACTONE 25 MG TABLET PO SCH (10:43)
[2016-09-25] MEDS: ASPIRIN EC 81 MG TABLET PO SCH (10:44)
[2016-09-25] MEDS: DOCUSATE SODIUM 100 MG CAPSULE PO PRN (10:44)
[2016-09-25] MEDS: INSULIN GLARGINE 100 UNIT/ML SUBCUT SCH (10:45)
[2016-09-25] MEDS: FLUTICASONE 50 MCG NASAL SPRAY 16 GM BOTTLE BOTH NARES SCH ×2 (10:45→21:05)
[2016-09-25] MEDS: NIACIN 500 MG TABLET PO SCH (10:45)
[2016-09-25] MEDS: PANTOPRAZOLE 40 MG TABLET PO SCH (10:45)
[2016-09-25] MEDS: LORATADINE 10 MG TABLET PO PRN (10:45)
[2016-09-25] MEDS: INSULIN LISPRO 100 UNIT/ML SUBCUT SCH ×4 (10:46→21:05)
[2016-09-25] MEDS: FUROSEMIDE 40 MG/4 ML VIAL IV SCH (10:47)
--- NOTE | 2016-09-25 11:52 | Nephrology Progress Note ---
Nephrology - PN: Subj Interval history: He is awake and alert. He states his breathing is okay. Pleural drainage tube came out during the night Exam (PN)-Nephrology - Vital Signs Vital signs: Period Temp Pulse Resp BP Sys/[place] Pulse Ox Last 24 Hr 97.7 F-99.2 F 63-95 18-22 106-139/50-60 90-98 Exam: Gen.: Alert and oriented x3. ENT: Pupils equal round reactive to light. EOMs intact. Mucous membranes moist. Neck: Supple. No JVD or bruit. Cardiovascular: Regular rate and rhythm. No murmur rub or gallop Lungs: Decreased breath sounds in the bases. No rales Abdomen: Soft. Nontender. Positive bowel sounds. No organomegaly Extremities: Trace edema - Lab 09/25/16 02:52 09/25/16 02:52 Most recent lab results ABG pH 7.465 (7.35-7.45) H 09/14/16 06:00 ABG pCO2 28.8 MM HG (35-48) L 09/14/16 06:00 ABG pO2 64.1 MM HG (80-95) L 09/14/16 06:00 ABG HCO3 20.3 MMOL/L (20-26) 09/14/16 06:00 ABG O2 Saturation 93.0 % (95-100) L 09/14/16 06:00 Calcium 8.3 MG/DL (8.5-10.1) L 09/25/16 02:52 Magnesium 2.8 MG/DL (1.8-2.4) H 09/25/16 02:52 Assessment and Plan (1) Acute on chronic renal failure Status: Acute Assessment and plan: 86-year-old man with: * CRF stage III. * ARF. creatinine has improved slightly. There is risk for worsening renal function with CTA. However, I believe his renal function is likely as good as we can expect now. Minimal contrast should be used. * S OB. Markedly improved after drainage of pleural effusion * Aortic stenosis, severe. Preserved LV function * CAD. Prior CABG * Diabetes mellitus * Hypertension Current Visit: Yes (2) Near syncope Status: Acute Current Visit: Yes (3) Pleural effusion Status: Acute Current Visit: Yes (4) Coronary artery disease Status: Chronic Current Visit: Yes Qualifiers: Coronary Disease-Associated Artery/Lesion type: [place] artery [place] vs. transplanted heart: [place] heart Associated angina: without angina Qualified Code(s): I25.10 - Atherosclerotic heart disease of [place] coronary artery without angina pectoris (5) Diabetes mellitus Status: Chronic Current Visit: Yes Qualifiers: Diabetes mellitus type: type 2 (6) Hypertension Status: Chronic Current Visit: Yes Qualifiers: Hypertension type: essential hypertension Qualified Code(s): I10 - Essential (primary) hypertension (7) Severe aortic stenosis Status: Chronic Current Visit: Yes (8) Bradycardia Status: Resolved Current Visit: Yes
[2016-09-25] MEDS ORDERED: POTASSIUM CHLORIDE 20 MEQ TABLET PO ONE (13:21)
--- NOTE | 2016-09-25 15:13 | Cardiology Progress Note ---
<HsuNegroRosie E - Last Filed: 09/25/16 14:58> Assessment and Plan - Time spent with patient Time spent with patient: Less than 30 minutes (1) Severe aortic stenosis Status: Chronic Assessment and plan: SEE PLAN OF CARE LISTED BELOW. Current Visit: Yes (2) Syncope Status: Acute Assessment and plan: SEE PLAN OF CARE LISTED BELOW Current Visit: Yes (3) Atrial flutter by electrocardiogram Status: Acute Assessment and plan: SEE PLAN OF CARE LISTED BELOW Current Visit: Yes (4) Bradycardia Status: Resolved Assessment and plan: SEE PLAN OF CARE LISTED BELOW Current Visit: Yes (5) Coronary artery disease Status: Chronic Assessment and plan: SEE PLAN OF CARE LISTED BELOW Current Visit: Yes Qualifiers: Coronary Disease-Associated Artery/Lesion type: [place] artery [place] vs. transplanted heart: [place] heart Associated angina: without angina Qualified Code(s): I25.10 - Atherosclerotic heart disease of [place] coronary artery without angina pectoris (6) Hypertension Status: Chronic Assessment and plan: SEE PLAN OF CARE LISTED BELOW Current Visit: Yes (7) Hyperlipidemia Status: Chronic Assessment and plan: SEE PLAN OF CARE LISTED BELOW Current Visit: Yes (8) Diabetes mellitus Status: Chronic Assessment and plan: SEE PLAN OF CARE LISTED BELOW Current Visit: Yes Qualifiers: Diabetes mellitus type: type 2 (9) Acute on chronic renal failure Status: Acute Assessment and plan: SEE PLAN OF CARE LISTED BELOW Current Visit: Yes (10) Leukocytosis Status: Resolved Assessment and plan: SEE PLAN OF CARE LISTED BELOW Current Visit: Yes (11) Epistaxis Status: Resolved Assessment and plan: SEE PLAN OF CARE LISTED BELOW Current Visit: Yes (12) Pleural effusion Status: Acute Assessment and plan: SEE PLAN OF CARE LISTED BELOW. Current Visit: Yes Cardiology - PN: Subj Interval history: HONEY PROCESSOR: DR. ALEXANDER Mr. Frazier is a 86 year old male with a history of coronary artery disease, hypertension, hyperlipidemia, type 2 diabetes mellitus, chronic kidney disease. He is status post coronary artery bypass grafting August 06 2001 with SINGH to the LAD and vein graft to the circumflex marginal and right coronary arteries. He is status post right carotid endarterectomy July 03, 2002. He was admitted to the hospital after an episode of syncope and prolonged weakness. He was initially in atrial flutter, bradycardia, junctional rhythm, no atrial flutter, with normal conduction. He was on no zackery blocking agents. An echocardiogram was performed with showed severe aortic stenosis with preserved ejection fraction. He had some trivial troponin elevation in the setting of an elevated creatinine. Urine toxicology was negative. 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 Mr. Frazier has had trouble with dyspnea and decreased O2 saturations past couple of days. Pulmonology has seen him in consultation and due to a right pleural effusion, he underwent ultrasound-guided thoracentesis September 15 where he was drained of 800 cc of straw-colored, blood-tinged fluid. He has been seen by CV surgery and will still need a CT angiogram to localize his KAITY if surgery is to be contemplated. At this time, he does not seem ready for surgical consideration. He is for CTA tomorrow. He has been sleeping every day I've been in to evaluate him. His breathing seems mildly improved. He needs to be a little more active. Physical therapy has been consulted to see him. ASSESSMENT/PLAN: 1. SEVERE AORTIC STENOSIS - Dr. Mehta has been consulted and tentatively plans perform AVR next week. Echocardiogram showed severe aortic stenosis and cardiac catheterization root revealed patency of an internal mammary graft and circumflex graft although the circumflex graft has an ostial stenosis. The right coronary graft is occluded but the [place] right coronary does not have significant obstructive lesions. The procedure is made somewhat more risky by his age, renal dysfunction, and presence of a patent internal mammary graft. CV Surgery plans to try to localize this graft more clearly with CT angiogram tomorrow since creatinine has improved. He has developed some peripheral edema. We will continue supportive care with diuresis. 2. SYNCOPE - Carotid doppler ultrasound reveals right ICA with 50-69% stenosis. CT of the brain was negative. This could have been related to bradycardia or his aortic stenosis. Neurology has seen him in consultation and does not feel he has suffered a TIA at this time. 3. ATRIAL FLUTTER - CHADSVASC 5. Anticoagulation has been held pending surgery next week. He has been started on a beta demarco and has tolerated this well. 4. BRADYCARDIA - Resolved. Will continue to monitor. 5. CORONARY ARTERY DISEASE - He is status post coronary artery bypass grafting August 06 2001 with SINGH to the LAD and vein graft to the circumflex marginal and right coronary arteries. Cardiac catheterization on 09/13/2016 revealed severe [place] three-vessel and ostial left main coronary artery disease with 2 of 3 bypass grafts patent. There is an ostial pinch in the saphenous vein graft to the obtuse marginal branch. The right coronary artery graft is occluded but the right coronary artery does not have any significant high-grade disease at this time. 6. HYPERTENSION -this is currently well controlled on the current therapy. Will continue to monitor and adjust accordingly. 7. HYPERLIPIDEMIA - Continue lipid lowering agent. FLP revealed triglycerides 98 , cholesterol 127, LDL 60, HDL 54. 8. DIABETES - He is on accuchecks with sliding scale insulin. Continue current plan of care. 9. ACUTE ON CHRONIC RENAL FAILURE - Will continue to monitor BMP. Risk for perioperative complications was discussed with the patient. Creatinine continued to rise and nephrology was consulted. He did have a CT with contrast on 09/15/16. Creatinine is 1.9 today. 10. PLEURAL EFFUSION - Status post thoracentesis September 15. CT scan yesterday still revealed significant right effusion. Patient is being seen by pulmonary. They feel that this is secondary to patient's congestive heart failure due to his aortic stenosis. It has been difficult to diurese him since the creatinine continued to rise. We will continue to monitor this with daily BMP. Nephrology has been consulted to further assist. He underwent right sided chest tube placement by interventional radiology on 09/20/16 and put out over 1 liter after insertion. He had significant results from this; however, over the weekend, his right pleural catheter came out during the night. We will continue with diuresis. Creatinine has improved to 1.9. Exam (Progress Note) - Constitutional Vitals: Period Temp Pulse Resp BP Sys/Hurtado Pulse Ox Last 24 Hr 97.7 F-99.2 F 58-95 18-22 110-139/50-63 90-98 Exam: General: Appears chronically ill. HEENT: PERRL, normocephalic, atraumatic. Mucous membranes moist. No jaundice noted. Neck: No JVD/HJR, no thyromegaly or lymphadenopathy noted. Cardiac: Atrial flutter with controlled ventricular rate. Systolic murmur consistent with aortic stenosis. Lungs: Bibasilar crackles posteriorly. Abdomen: Soft, bowel sounds normoactive. Nontender and nondistended. No abdominal bruit or thrill noted. No masses noted. Extremities: No clubbing, cyanosis noted. 1-2+ edema noted to BUE/BLE. Upper extremity pulses 2+. Lower extremity pulses 2+. Capillary refill less than 3 seconds. Skin: No unusual lesions or rashes. No skin breakdown appreciated. Neuro: Awake, alert and oriented 3. Moves all extremities well without hemiparesis or paralysis. No essential tremor is appreciated. Result/EKG - Labs CBC & BMP: 09/25/16 02:52 09/25/16 02:52 Lab Results: I have reviewed the past 24 hour labs Labs: Laboratory Results - last 24 hr 09/24/16 09/24/16 09/24/16 07:37 11:18 16:25 WBC RBC Hgb Hct MCV MCH MCHC RDW Plt Count MPV Neut % (Auto) Lymph % (Auto) Swain % (Auto) Eos % (Auto) Baso % (Auto) Neut # (Auto) Lymph # (Auto) Swain # (Auto) Eos # (Auto) Baso # (Auto) Immature Gran % Nucleated RBC % Immature Gran # Nucleated RBCs # Sodium Potassium Chloride Carbon Dioxide Anion Gap BUN Creatinine GFR Calculation BUN/Creatinine Ratio Glucose POC Glucose 146 H 331 H 167 H Calculated Osmolality Calcium Magnesium 09/24/16 09/25/16 09/25/16 21:00 02:52 02:52 WBC 9.7 RBC 3.27 L Hgb 9.8 L Hct 28.9 L MCV 88.4 MCH 30 MCHC 33.9 RDW 13.6 Plt Count 158 MPV 10.9 Neut % (Auto) 84.2 H Lymph % (Auto) 5.5 L Swain % (Auto) 9.1 Eos % (Auto) 0.3 Baso % (Auto) 0.2 Neut # (Auto) 8.2 H Lymph # (Auto) 0.5 L Swain # (Auto) 0.9 H Eos # (Auto) 0.0 Baso # (Auto) 0.0 Immature Gran % 0.7 Nucleated RBC % 0.0 Immature Gran # 0.07 Nucleated RBCs # 0.00 Sodium 137 Potassium 3.2 L Chloride 94 L Carbon Dioxide 33 H Anion Gap 13.2 BUN 55 H D Creatinine 1.90 H GFR Calculation 35 BUN/Creatinine Ratio 28.00 H Glucose 178 H POC Glucose 200 H Calculated Osmolality 291.8 Calcium 8.3 L Magnesium 2.8 H 09/25/16 09/25/16 07:52 12:27 WBC RBC Hgb Hct MCV MCH MCHC RDW Plt Count MPV Neut % (Auto) Lymph % (Auto) Swain % (Auto) Eos % (Auto) Baso % (Auto) Neut # (Auto) Lymph # (Auto) Swain # (Auto) Eos # (Auto) Baso # (Auto) Immature Gran % Nucleated RBC % Immature Gran # Nucleated RBCs # Sodium Potassium Chloride Carbon Dioxide Anion Gap BUN Creatinine GFR Calculation BUN/Creatinine Ratio Glucose POC Glucose 165 H 342 H Calculated Osmolality Calcium Magnesium - EKG EKG results: interpreted by me (atrial flutter) Quality Measures - Stroke Onset of Symptoms Date: 09/05/16 Onset of Symptoms Time: 15:30 Symptom Onset Unknown: No <Eduardo Flores - Last Filed: 09/25/16 18:15> Exam (Progress Note) - Constitutional Vitals: Period Temp Pulse Resp BP Sys/Hurtado Pulse Ox Last 24 Hr 97.9 F-99.2 F 58-95 18-22 100-139/46-63 90-98 Result/EKG - Labs CBC & BMP: 09/25/16 02:52 09/25/16 02:52 Labs: Laboratory Results - last 24 hr 09/24/16 09/25/16 09/25/16 21:00 02:52 02:52 WBC 9.7 RBC 3.27 L Hgb 9.8 L Hct 28.9 L MCV 88.4 MCH 30 MCHC 33.9 RDW 13.6 Plt Count 158 MPV 10.9 Neut % (Auto) 84.2 H Lymph % (Auto) 5.5 L Swain % (Auto) 9.1 Eos % (Auto) 0.3 Baso % (Auto) 0.2 Neut # (Auto) 8.2 H Lymph # (Auto) 0.5 L Swain # (Auto) 0.9 H Eos # (Auto) 0.0 Baso # (Auto) 0.0 Immature Gran % 0.7 Nucleated RBC % 0.0 Immature Gran # 0.07 Nucleated RBCs # 0.00 Sodium 137 Potassium 3.2 L Chloride 94 L Carbon Dioxide 33 H Anion Gap 13.2 BUN 55 H D Creatinine 1.90 H GFR Calculation 35 BUN/Creatinine Ratio 28.00 H Glucose 178 H POC Glucose 200 H Calculated Osmolality 291.8 Calcium 8.3 L Magnesium 2.8 H 0612/17 06/12/17 06/12/17 07:52 12:27 16:22 WBC RBC Hgb Hct MCV MCH MCHC RDW Plt Count MPV Neut % (Auto) Lymph % (Auto) Swain % (Auto) Eos % (Auto) Baso % (Auto) Neut # (Auto) Lymph # (Auto) Swain # (Auto) Eos # (Auto) Baso # (Auto) Immature Gran % Nucleated RBC % Immature Gran # Nucleated RBCs # Sodium Potassium Chloride Carbon Dioxide Anion Gap BUN Creatinine GFR Calculation BUN/Creatinine Ratio Glucose POC Glucose 165 H 342 H 213 H Calculated Osmolality Calcium Magnesium
[2016-09-25] MEDS: ATORVASTATIN 80 MG TABLET PO SCH (21:04)
[2016-09-25] MEDS: diphenhydrAMINE CAP 25 MG CAPSULE PO PRN (21:07)
[2016-09-26] MEDS: IPRATROPIUM 500 MCG/2.5 ML NEB RESP TX SCH ×4 (01:21→21:32)
[2016-09-26 05:01] LABS: Basophils % 0.2 % (0.0-0.8); Eosinophils # 0.1 10*3/uL (0.0-0.87); Eosinophils % 0.7 % (0.00-10.9); Hematocrit 30.1 VOL% (42.0-52.0); Hemoglobin 9.8 GM/DL (14.0-18.0); Immature Granulocytes % 0.7 %; Immature Granulocytes Absolute 0.09 #; Lymphocytes # 0.8 10*3/uL (1.4-4.0); Lymphocytes % 6.3 % (21.2-54.2); Mean Corpuscular HGB Conc 32.6 GM/DL (32-36); Mean Corpuscular Hemoglobin 29 PG (27-34); Mean Corpuscular Volume 89.9 FL (87-102); Mean Platelet Volume 10.8 FL (9.6-12.0); Monocytes # 1.2 10*3/uL (0.11-0.8); Monocytes % 10.1 % (1.7-12.7); Platelet Count 182 T/CUMM (130-400); Red Blood Count 3.35 MC/CUMM (3.8-5.5); Red Cell Distribution Width 14.1 % (9.3-17.3); White Blood Count 12.3 T/CUMM (4-12)
[2016-09-26 05:41] LABS: Calcium 8.7 MG/DL (8.5-10.1); Magnesium 2.9 MG/DL (1.8-2.4); Osmolality,Calculated 291.7 MOS/KG (273-304); Potassium 3.6 MMOL/L (3.5-5.1)
--- NOTE | 2016-09-26 08:27 | Pulmonology Progress Note ---
Pulmonary - PN: Subj Interval history: This 86-year-old white male has congestive heart failure due to aortic stenosis. Also has atherosclerotic heart disease with previous coronary bypass surgery. Needs to have his IV aortic valve replaced. He has a right pleural effusion. His chest x-ray looks a little bit better today as far as the pulmonary edema is concerned. However we gave him Lasix yesterday and his creatinine has risen a little more. I think we would do best to get the right pleural fluid drained in preparation for surgery. Will ask interventional radiology to do this since it appears to be loculated laterally and would be safely done with ultrasound guidance. Patient is not sleeping well. Should tolerate some Ativan at bedtime. Quite anxious. I should note that the reason he has pleural fluid on the right and not the left is that he has had a previous left decortication. 09/18/2016 we have tried to diurese him and it has not been very successful. His creatinine has risen. He had a right thoracentesis with removal of 800 mL of fluid but he had his CT scan yesterday still showed significant right effusion. The pleural fluid is a transudate. Certainly think this is due to congestive heart failure, due to his aortic stenosis. It will be very difficult to treat his heart failure without the valve being replaced. However he is at high risk for surgery given his fragile state and acute kidney injury with Lasix and low cardiac output. Will ask nephrology to see if they can help us with this. Patient at present is about the same as far as her shortness of breath. He is empirically on antibiotics. 09/19/2016 he continues to complain of dyspnea. Primarily says he has trouble breathing through his nose. He is on 2 different nose sprays in his nasal passages appear open on my exam. I think is primarily short of breath related to his congestive heart failure/aortic stenosis. Renal function is a little better. Perhaps getting further out from contrast studies is helping. We do need to try to diurese him further. Nephrology is following as well. 09/20/2016 patient feels a little better sitting up in the chair. However his chest x-ray shows that the right pleural effusion has increased in size. Having a difficult time diuresing him with his creatinine 2.8. Would recommend putting a pleural catheter in the right side to drain this. Hopefully this will help us prep him for possible aortic valve replacement. The pleural effusion is due to congestive heart failure, however they are having a difficult time diuresing him. 09/21/2016 breathing is better since getting the pleural catheter. Chest x-ray today pending. Renal function getting a little better. Hopefully can plan aortic valve surgery soon. 09/22/2016 patient feels a little better. Should be able to tolerate nasal biprong's now. Chest x-ray shows the right pleural effusion has been evacuated. Put out about 200 mL from chest tube since yesterday morning. Need to keep it in for now. Renal function reports are pending from this morning. He does appear to be holding his own layer. Still has some peripheral edema and we need to bump with Lasix again. In my opinion he will need to have aortic valve surgery in order to get back to any meaningful life at home. Otherwise he will be a bed to chair existence. Certainly some risk involved as far as postoperative renal function and/or respiratory failure, but I favor proceeding with surgery next week. 09/23/2016 put out another 400 mL from his chest tube yesterday. Still has peripheral edema. We need to diurese him further. Renal insufficiency makes it difficult. Dr. Mehta wants to do a CT angiogram to further evaluate his aortic arch. His creatinine is down to 2.3. I feel sure further contrast would bump his creatinine up above 3 again and perhaps worse. I do think he would be better off having surgery then not having surgery. I do not think he can go home and come back as he still has a pleural catheter in. We may consider doing a pleurodesis, which is unusual for a transudative type effusion , and only works about half the time in this situation. 09/24/2016 his right pleural catheter came out during the night. Chest x-ray this morning shows the right lung well expanded. He does have some interstitial edema and some interstitial scarring. Creatinine has come down further to 2.1. We need to try to diurese him further. Would not replace the pleural catheter at this point. 09/25/2016 patient needs to be more active. Creatinine is come down to 1.9. Plans are for a CT angiogram of the chest tomorrow. Will need to watch renal function closely after that. Since the CT is planned I will not order chest x- ray 09/26/2016 CT angiogram was canceled because creatinine was up to 2.1. Defer to nephrology, cardiovascular surgery, and radiology on plans there. His chest x- ray shows recurrence of right pleural effusion. Not as much as before but still there. We are trying to diurese him as much as his kidneys will allow. He still has peripheral edema. Exam (Progress Note) - Constitutional Vitals: Period Temp Pulse Resp BP Sys/Hurtado Pulse Ox Last 24 Hr 97.2 F-98.3 F 58-73 16-20 100-120/46-68 90-98 Exam: Patient's alert, comfortable flat in bed. Vital signs normal. Wearing nasal oxygen. Pupils react to light. Throat clear. Neck supple no bruits. Chest shows a few basilar crackles at the right base. Dullness at right base to percussion. Heart normal rate rhythm grade 2/6 systolic murmur at right base. Abdomen soft nontender no masses. Bowel sounds present. Extremities no clubbing or cyanosis. 1+ edema. Calves nontender. Results - Labs CBC & BMP: 09/26/16 04:14 09/26/16 04:14 Lab Results: I have reviewed the past 24 hour labs - Diagnostic Findings Procedure: Chest x-ray: image reviewed by me (Right pleural effusion has recurred. Not as large as before.) Assessment and Plan (1) Syncope Status: Acute Assessment and plan: Syncope likely due to cardiac causes related to his aortic stenosis. 09/15/16 likely due to his aortic stenosis. 09/18/2016 again the syncope is likely due to his aortic stenosis. 09/20/2016 no symptoms of postural syncope at this time Current Visit: Yes (2) Chronic kidney disease Status: Chronic Assessment and plan: Creatinine is 2.1. He has had some renal insufficiency for quite some time related to vascular disease and diabetes. At present I think he is ahead on fluid. I will bump him with Lasix. 09/15/16 creatinine up to 2.3 after a dose of Lasix. Afraid to diurese any more vigorously at present. Asking interventional radiology to drain the loculated right effusion. This should help getting prepped for aortic valve replacement. 09/18/2016 creatinine up to 2.8. Difficulty mobilizing right pleural effusion fluid 09/19/2016 renal function is a little better today. Creatinine down to 2.4. May have had a bump in creatinine related to his contrast last week. 09/20/2016 creatinine up to 2.8. 09/21/2016 creatinine down to 2.5. Improving. Hopefully getting further out from contrast 09/22/2016 chemistries pending today. Hopefully can get creatinine back down to around 2. 09/23/2016 creatinine down to 2.3. This despite giving diuretics. 09/24/2016 creatinine down to 2.1. 09/25/2016 creatinine down to 1.9. This is about baseline for him. 09/26/2016 creatinine 2.1 today. Nephrology following. Current Visit: Yes (3) Coronary artery disease Status: Chronic Assessment and plan: Previous coronary bypass surgery with additional findings at catheterization this admission. 09/25/2016 patient not having any active angina. Current Visit: Yes Qualifiers: Coronary Disease-Associated Artery/Lesion type: [place] artery [place] vs. transplanted heart: [place] heart Associated angina: without angina Qualified Code(s): I25.10 - Atherosclerotic heart disease of [place] coronary artery without angina pectoris (4) Pulmonary hypertension Status: Chronic Assessment and plan: This was not quantified on the echo but is likely to be secondary to his left heart disease with aortic stenosis. 09/15/16 this should be due to his aortic stenosis and congestive heart failure. 09/18/2016 secondary to his left heart disease. 09/20/2016 this is due to his left heart disease. 09/21/2016 due to left heart disease. 09/22/2016 this is secondary to his left heart disease, primarily aortic stenosis 09/23/2016 this is secondary to his aortic stenosis. 09/24/2016 secondary to left heart disease. Current Visit: Yes (5) Severe aortic stenosis Status: Chronic Assessment and plan: Has severe aortic stenosis by echo and catheterization. Likely the possible cause of his congestive heart failure and pulmonary hypertension. 09/15/16 hopefully can have surgery when we get him tuned up. 09/18/2016 will need surgery if he can tolerate it. 09/19/2016 hopefully we can get him tuned up where he can tolerate AVR. 09/20/2016 aortic valve surgery is indicated when we can get him tuned up for it. 09/21/2016 need surgery. Trying to get him tuned up for that. If renal function is stable and right pleural effusion totally evacuated, then hopefully could plan sign. 09/22/2016 x-ray is better. Less dyspnea. If renal function is stable, I would be in favor of proceeding with surgery next week. 09/23/16 ideally should be repaired surgically or replaced. He has some chronic bronchitis but does not have severe COPD. 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 09/24/2016 again trying to tune him up so he can have his aortic valve replaced or repaired. 09/25/2016 trying to get him to the point where he can have his aortic valve replaced or repaired. Needs more physical activity. 09/26/2016 continuing to try to get him where he can tolerate aortic valve surgery. Current Visit: Yes (6) Diabetes mellitus Status: Chronic Assessment and plan: Has some hyperglycemia. Adding sliding scale. 09/15/16 glucoses in the 140-200 range. 09/18/2016 glucoses look okay. 09/19/2016 glucoses are fairly well controlled. 09/20/2016 glucoses look better. 09/21/2016 still mildly elevated glucoses. 09/22/2016 glucoses fairly well controlled. 09/23/2016 blood sugars are okay. 09/24/2016 glucoses are a little high. Adjust insulin, increase Lantus to 15 units. 09/25/2016 glucoses a little better. 09/26/2016 blood sugars are acceptable. Current Visit: Yes Qualifiers: Diabetes mellitus type: type 2 (7) Acute bronchitis Status: Resolved Assessment and plan: Based on the change in sputum color and elevated white count 16,000 think is reasonable to cover him with antibiotics for this. Will use Atrovent for bronchodilators. 09/15/16 empirically on antibiotics and Atrovent. I think his main problem respiratory escobar is congestive heart failure related to his aortic stenosis. Would not delay surgery for bronchitis in this situation 09/18/2016 on empiric antibiotics. 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 It is sensitive to Cipro. I will change him to oral Cipro. 09/20/2016 I do not hear any rhonchi. He is on oral Cipro. 09/21/2016 bronchitis is improved. Probably needs a couple more days of Cipro. 09/22/2016 he has had a week's worth of antibiotics. Bronchitis is quiet now. We will stop Cipro. 09/23/2016 he has completed antibiotics. 09/25/2016 he is not coughing at present. Current Visit: Yes
[2016-09-26] MEDS: INSULIN LISPRO 100 UNIT/ML SUBCUT SCH ×4 (08:36→22:05)
--- NOTE | 2016-09-26 08:52 | XRay Report ---
Referring Physician: Mp Lawson MD Exam: XR chest 1V portable Date: September 26, 2016 at 7:46 AM Reason: Right pleural effusion Comparison: Chest 2 views September 24, 2016 Findings: The cardiac silhouette is again enlarged, and the patient is status post sternotomy. There are opacities within both lungs, most prominent within the right lower lung zone. This is concerning for pulmonary edema, atelectasis and possibly pneumonia. No pneumothorax is identified, but there is mild to moderate right pleural fluid and mild left pleural fluid. This fluid may be loculated, especially on the right. The osseous structures appear stable. Impression: Interval increased pleural fluid on the right. The pleural fluid may be loculated bilaterally, especially on the right. PROCEDURE INTERPRETED AT [facility] DEPARTMENT OF RADIOLOGY Final Report Signed by: Dr. Maame Grey
--- NOTE | 2016-09-26 09:06 | Cardiothoracic Progress Note ---
Cardiothoracic Subjective Interval history: Patient looks and feels some better today. He is breathing comfortably. He is due to have CT angiogram of the chest today. Hopefully this will allow her more complete assessment of preoperative risk for coronary bypass surgery and aortic valve replacement. Continue present therapy for now. Exam (Progress Note) - Constitutional Vitals: Period Temp Pulse Resp BP Sys/Hurtado Pulse Ox Last 24 Hr 97.2 F-98.3 F 58-86 12-20 100-120/46-68 90-98 Result/EKG - Labs CBC & BMP: 09/26/16 04:14 09/26/16 04:14 Labs: Laboratory Results - last 24 hr 09/25/16 09/25/16 09/25/16 12:27 16:22 20:01 WBC RBC Hgb Hct MCV MCH MCHC RDW Plt Count MPV Neut % (Auto) Lymph % (Auto) [place] % (Auto) Eos % (Auto) Baso % (Auto) Neut # (Auto) Lymph # (Auto) [place] # (Auto) Eos # (Auto) Baso # (Auto) Immature Gran % Nucleated RBC % Immature Gran # Nucleated RBCs # Sodium Potassium Chloride Carbon Dioxide Anion Gap BUN Creatinine GFR Calculation BUN/Creatinine Ratio Glucose POC Glucose 342 H 213 H 136 H Calculated Osmolality Calcium Magnesium 09/26/16 09/26/16 04:14 04:14 WBC 12.3 H RBC 3.35 L Hgb 9.8 L Hct 30.1 L MCV 89.9 MCH 29 MCHC 32.6 RDW 14.1 Plt Count 182 MPV 10.8 Neut % (Auto) 82.0 H Lymph % (Auto) 6.3 L [place] % (Auto) 10.1 Eos % (Auto) 0.7 Baso % (Auto) 0.2 Neut # (Auto) 10.0 H Lymph # (Auto) 0.8 L [place] # (Auto) 1.2 H Eos # (Auto) 0.1 Baso # (Auto) 0.0 Immature Gran % 0.7 Nucleated RBC % 0.0 Immature Gran # 0.09 Nucleated RBCs # 0.00 Sodium 138 Potassium 3.6 Chloride 94 L Carbon Dioxide 35 H Anion Gap 12.6 BUN 55 H Creatinine 2.10 H GFR Calculation 31 BUN/Creatinine Ratio 26.00 H Glucose 143 H POC Glucose Calculated Osmolality 291.7 Calcium 8.7 Magnesium 2.9 H Quality Measures - Stroke Onset of Symptoms Date: 09/05/16 Onset of Symptoms Time: 15:30 Symptom Onset Unknown: No
[2016-09-26] MEDS: PANTOPRAZOLE 40 MG TABLET PO SCH (10:05)
[2016-09-26] MEDS: LORATADINE 10 MG TABLET PO PRN (10:05)
[2016-09-26] MEDS: GLIMEPIRIDE 4 MG TABLET PO SCH ×2 (10:05→17:48)
[2016-09-26] MEDS: NIACIN 500 MG TABLET PO SCH (10:05)
[2016-09-26] MEDS: METOPROLOL TARTRATE 25 MG TABLET PO SCH (10:05)
[2016-09-26] MEDS: DOCUSATE SODIUM 100 MG CAPSULE PO PRN (10:05)
[2016-09-26] MEDS: ASPIRIN EC 81 MG TABLET PO SCH (10:05)
[2016-09-26] MEDS: INSULIN GLARGINE 100 UNIT/ML SUBCUT SCH (10:07)
[2016-09-26] MEDS: CITRIC ACID/SODIUM CITRATE 30 ML UDCUP PO SCH ×3 (10:07→22:05)
[2016-09-26] MEDS: FLUTICASONE 50 MCG NASAL SPRAY 16 GM BOTTLE BOTH NARES SCH ×2 (10:08→22:09)
[2016-09-26] MEDS: FUROSEMIDE 40 MG/4 ML VIAL IV SCH (10:08)
--- NOTE | 2016-09-26 16:43 | Cardiology Progress Note ---
<HsuNegro manciaen E - Last Filed: 09/26/16 16:52> Assessment and Plan - Time spent with patient Time spent with patient: Less than 30 minutes (1) Severe aortic stenosis Status: Chronic Assessment and plan: SEE PLAN OF CARE LISTED BELOW. Current Visit: Yes (2) Syncope Status: Acute Assessment and plan: SEE PLAN OF CARE LISTED BELOW Current Visit: Yes (3) Atrial flutter by electrocardiogram Status: Acute Assessment and plan: SEE PLAN OF CARE LISTED BELOW Current Visit: Yes (4) Bradycardia Status: Resolved Assessment and plan: SEE PLAN OF CARE LISTED BELOW Current Visit: Yes (5) Coronary artery disease Status: Chronic Assessment and plan: SEE PLAN OF CARE LISTED BELOW Current Visit: Yes Qualifiers: Coronary Disease-Associated Artery/Lesion type: [place] artery [place] vs. transplanted heart: [place] heart Associated angina: without angina Qualified Code(s): I25.10 - Atherosclerotic heart disease of [place] coronary artery without angina pectoris (6) Hypertension Status: Chronic Assessment and plan: SEE PLAN OF CARE LISTED BELOW Current Visit: Yes (7) Hyperlipidemia Status: Chronic Assessment and plan: SEE PLAN OF CARE LISTED BELOW Current Visit: Yes (8) Diabetes mellitus Status: Chronic Assessment and plan: SEE PLAN OF CARE LISTED BELOW Current Visit: Yes Qualifiers: Diabetes mellitus type: type 2 (9) Acute on chronic renal failure Status: Acute Assessment and plan: SEE PLAN OF CARE LISTED BELOW Current Visit: Yes (10) Leukocytosis Status: Resolved Assessment and plan: SEE PLAN OF CARE LISTED BELOW Current Visit: Yes (11) Epistaxis Status: Resolved Assessment and plan: SEE PLAN OF CARE LISTED BELOW Current Visit: Yes (12) Pleural effusion Status: Acute Assessment and plan: SEE PLAN OF CARE LISTED BELOW. 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 Frazier is a 86 year old male with a history of coronary artery disease, hypertension, hyperlipidemia, type 2 diabetes mellitus, chronic kidney disease. He is status post coronary artery bypass grafting August 06 2001 with SINGH to the LAD and vein graft to the circumflex marginal and right coronary arteries. He is status post right carotid endarterectomy July 03, 2002. He was admitted to the hospital after an episode of syncope and prolonged weakness. He was initially in atrial flutter, bradycardia, junctional rhythm, no atrial flutter, with normal conduction. He was on no zackery blocking agents. An echocardiogram was performed with showed severe aortic stenosis with preserved ejection fraction. He had some trivial troponin elevation in the setting of an elevated creatinine. Urine toxicology was negative. 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 Mr. Frazier has had trouble with dyspnea and decreased O2 saturations past couple of days. Pulmonology has seen him in consultation and due to a right pleural effusion, he underwent ultrasound-guided thoracentesis September 15 where he was drained of 800 cc of straw-colored, blood-tinged fluid. He has been seen by CV surgery and will still need a CT angiogram to localize his KAITY if surgery is to be contemplated. At this time, he does not seem ready for surgical consideration. CTA was cancelled due to rise in creatinine. He seems a little more winded today and reports his nephew tried to help him shower today but he was extremely fatigued just walking to the bathroom He needs to be a little more active. Physical therapy has been consulted to see him. ASSESSMENT/PLAN: 1. SEVERE AORTIC STENOSIS - Dr. Mehta has been consulted and tentatively plans perform AVR next week. Echocardiogram showed severe aortic stenosis and cardiac catheterization root revealed patency of an internal mammary graft and circumflex graft although the circumflex graft has an ostial stenosis. The right coronary graft is occluded but the [place] right coronary does not have significant obstructive lesions. The procedure is made somewhat more risky by his age, renal dysfunction, and presence of a patent internal mammary graft. CV Surgery planned to try to localize this graft more clearly with CT angiogram ; however, this was cancelled since his creatinine clyde to 2.1. He has developed some peripheral edema. We will continue supportive care with diuresis. 2. SYNCOPE - Carotid doppler ultrasound reveals right ICA with 50-69% stenosis. CT of the brain was negative. This could have been related to bradycardia or his aortic stenosis. Neurology has seen him in consultation and does not feel he has suffered a TIA at this time. 3. ATRIAL FLUTTER - CHADSVASC 5. Anticoagulation has been held pending surgery next week. He has been started on a beta demarco and has tolerated this well. 4. BRADYCARDIA - Resolved. Will continue to monitor. 5. CORONARY ARTERY DISEASE - He is status post coronary artery bypass grafting August 06 2001 with SINGH to the LAD and vein graft to the circumflex marginal and right coronary arteries. Cardiac catheterization on 09/13/2016 revealed severe [place] three-vessel and ostial left main coronary artery disease with 2 of 3 bypass grafts patent. There is an ostial pinch in the saphenous vein graft to the obtuse marginal branch. The right coronary artery graft is occluded but the right coronary artery does not have any significant high-grade disease at this time. 6. HYPERTENSION -this is currently well controlled on the current therapy. Will continue to monitor and adjust accordingly. 7. HYPERLIPIDEMIA - Continue lipid lowering agent. FLP revealed triglycerides 98 , cholesterol 127, LDL 60, HDL 54. 8. DIABETES - He is on accuchecks with sliding scale insulin. Continue current plan of care. 9. ACUTE ON CHRONIC RENAL FAILURE - Will continue to monitor BMP. Risk for perioperative complications was discussed with the patient. Creatinine continued to rise and nephrology was consulted. He did have a CT with contrast on 09/15/16. 10. PLEURAL EFFUSION - Status post thoracentesis September 15. Patient is being seen by pulmonary. They feel that this is secondary to patient's congestive heart failure due to his aortic stenosis. It has been difficult to diurese him since the creatinine continued to rise. We will continue to monitor this with daily BMP. Nephrology has been consulted to further assist. He underwent right sided chest tube placement by interventional radiology on 09/20 and put out over 1 liter after insertion. He had significant results from this; however, over the weekend, his right pleural catheter came out during the night. We will continue with diuresis. Creatinine has risen to 2.1 today. Chest x-ray today shows increased pleural fluid on the right. Exam (Progress Note) - Constitutional Vitals: Period Temp Pulse Resp BP Sys/Hurtado Pulse Ox Last 24 Hr 97.2 F-98.3 F 66-98 12-24 100-120/46-68 90-98 Exam: General: Appears chronically ill. HEENT: PERRL, normocephalic, atraumatic. Mucous membranes moist. No jaundice noted. Neck: No JVD/HJR, no thyromegaly or lymphadenopathy noted. Cardiac: Atrial flutter with controlled ventricular rate. Systolic murmur consistent with aortic stenosis. Lungs: Bibasilar crackles posteriorly. Abdomen: Soft, bowel sounds normoactive. Nontender and nondistended. No abdominal bruit or thrill noted. No masses noted. Extremities: No clubbing, cyanosis noted. 2+ edema noted to BUE/BLE. Upper extremity pulses 2+. Lower extremity pulses 2+. Capillary refill less than 3 seconds. Skin: No unusual lesions or rashes. No skin breakdown appreciated. Neuro: Awake, alert and oriented 3. Moves all extremities well without hemiparesis or paralysis. No essential tremor is appreciated. Result/EKG - Labs CBC & BMP: 09/26/16 04:14 09/26/16 04:14 Lab Results: I have reviewed the past 24 hour labs Labs: Laboratory Results - last 24 hr 09/25/16 09/25/16 09/26/16 16:22 20:01 04:14 WBC 12.3 H RBC 3.35 L Hgb 9.8 L Hct 30.1 L MCV 89.9 MCH 29 MCHC 32.6 RDW 14.1 Plt Count 182 MPV 10.8 Neut % (Auto) 82.0 H Lymph % (Auto) 6.3 L [place] % (Auto) 10.1 Eos % (Auto) 0.7 Baso % (Auto) 0.2 Neut # (Auto) 10.0 H Lymph # (Auto) 0.8 L [place] # (Auto) 1.2 H Eos # (Auto) 0.1 Baso # (Auto) 0.0 Immature Gran % 0.7 Nucleated RBC % 0.0 Immature Gran # 0.09 Nucleated RBCs # 0.00 Sodium Potassium Chloride Carbon Dioxide Anion Gap BUN Creatinine GFR Calculation BUN/Creatinine Ratio Glucose POC Glucose 213 H 136 H Calculated Osmolality Calcium Magnesium 09/26/16 09/26/16 09/26/16 04:14 08:01 12:13 WBC RBC Hgb Hct MCV MCH MCHC RDW Plt Count MPV Neut % (Auto) Lymph % (Auto) [place] % (Auto) Eos % (Auto) Baso % (Auto) Neut # (Auto) Lymph # (Auto) [place] # (Auto) Eos # (Auto) Baso # (Auto) Immature Gran % Nucleated RBC % Immature Gran # Nucleated RBCs # Sodium 138 Potassium 3.6 Chloride 94 L Carbon Dioxide 35 H Anion Gap 12.6 BUN 55 H Creatinine 2.10 H GFR Calculation 31 BUN/Creatinine Ratio 26.00 H Glucose 143 H POC Glucose 144 H 318 H Calculated Osmolality 291.7 Calcium 8.7 Magnesium 2.9 H - EKG EKG results: interpreted by me (atrial flutter with controlled rate) Quality Measures - Stroke Onset of Symptoms Date: 09/05/16 Onset of Symptoms Time: 15:30 Symptom Onset Unknown: No <Eduardo Flores - Last Filed: 09/26/16 17:58> Exam (Progress Note) - Constitutional Vitals: Period Temp Pulse Resp BP Sys/Hurtado Pulse Ox Last 24 Hr 97.2 F-98.3 F 66-98 12-24 100-122/46-68 90-98 Result/EKG - Labs CBC & BMP: 09/26/16 04:14 09/26/16 04:14 Labs: Laboratory Results - last 24 hr 09/25/16 09/26/16 09/26/16 20:01 04:14 04:14 WBC 12.3 H RBC 3.35 L Hgb 9.8 L Hct 30.1 L MCV 89.9 MCH 29 MCHC 32.6 RDW 14.1 Plt Count 182 MPV 10.8 Neut % (Auto) 82.0 H Lymph % (Auto) 6.3 L [place] % (Auto) 10.1 Eos % (Auto) 0.7 Baso % (Auto) 0.2 Neut # (Auto) 10.0 H Lymph # (Auto) 0.8 L [place] # (Auto) 1.2 H Eos # (Auto) 0.1 Baso # (Auto) 0.0 Immature Gran % 0.7 Nucleated RBC % 0.0 Immature Gran # 0.09 Nucleated RBCs # 0.00 Sodium 138 Potassium 3.6 Chloride 94 L Carbon Dioxide 35 H Anion Gap 12.6 BUN 55 H Creatinine 2.10 H GFR Calculation 31 BUN/Creatinine Ratio 26.00 H Glucose 143 H POC Glucose 136 H Calculated Osmolality 291.7 Calcium 8.7 Magnesium 2.9 H 09/26/16 09/26/16 09/26/16 08:01 12:13 16:46 WBC RBC Hgb Hct MCV MCH MCHC RDW Plt Count MPV Neut % (Auto) Lymph % (Auto) [place] % (Auto) Eos % (Auto) Baso % (Auto) Neut # (Auto) Lymph # (Auto) [place] # (Auto) Eos # (Auto) Baso # (Auto) Immature Gran % Nucleated RBC % Immature Gran # Nucleated RBCs # Sodium Potassium Chloride Carbon Dioxide Anion Gap BUN Creatinine GFR Calculation BUN/Creatinine Ratio Glucose POC Glucose 144 H 318 H 84 Calculated Osmolality Calcium Magnesium
[2016-09-26] MEDS ORDERED: SODIUM CHLORIDE 0.45% 1,000 ML IV SCH (18:00)
[2016-09-26] MEDS ORDERED: MORPHINE 2 MG/1 ML SYRINGE IV ONE (18:04)
[2016-09-26] MEDS: ACETYLCYSTEINE 600 MG CAPSULE PO SCH (22:04)
[2016-09-26] MEDS: ATORVASTATIN 80 MG TABLET PO SCH (22:04)
[2016-09-26] MEDS: CARVEDILOL 3.125 MG TABLET PO SCH (22:04)
--- NOTE | 2016-09-27 01:00 | Nephrology Progress Note ---
Nephrology - PN: Subj Interval history: This is a late entry note for 09/26/2016 He states his breathing is about the same as yesterday. He appears comfortable. No chest pain Exam (PN)-Nephrology - Vital Signs Vital signs: Period Temp Pulse Resp BP Sys/Hurtado Pulse Ox Last 24 Hr 97.8 F-98.4 F 64-98 12-24 110-122/53-68 91-98 Exam: Gen.: Alert and oriented x3. ENT: Pupils equal round reactive to light. EOMs intact. Mucous membranes moist. Neck: Supple. No JVD or bruit. Cardiovascular: Regular rate and rhythm. No murmur rub or gallop Lungs: Decreased breath sounds in bases Abdomen: Soft. Nontender. Positive bowel sounds. No organomegaly Extremities: 1+ edema - Lab 09/26/16 04:14 09/26/16 04:14 Most recent lab results ABG pH 7.465 (7.35-7.45) H 09/14/16 06:00 ABG pCO2 28.8 MM HG (35-48) L 09/14/16 06:00 ABG pO2 64.1 MM HG (80-95) L 09/14/16 06:00 ABG HCO3 20.3 MMOL/L (20-26) 09/14/16 06:00 ABG O2 Saturation 93.0 % (95-100) L 09/14/16 06:00 Calcium 8.7 MG/DL (8.5-10.1) 09/26/16 04:14 Magnesium 2.9 MG/DL (1.8-2.4) H 09/26/16 04:14 Assessment and Plan (1) Acute on chronic renal failure Status: Acute Assessment and plan: 86-year-old man with: * CRF stage III. * ARF. Creatinine is slightly higher. I have discussed his situation with Dr. Lawson and Dr. Mehta. Although he has moderate risk for acute worsening of renal function due to contrast, I believe his risk is near as low as we can attain. If his pleural effusion re-accumulates, his symptoms will worsen. I have explained to Mr. Frazier that acute renal failure is a risk but postponing evaluation for surgery is likely a higher risk. He agrees to proceed. CTA has been ordered * S OB. Markedly improved after drainage of pleural effusion * Aortic stenosis, severe. Preserved LV function * CAD. Prior CABG * Diabetes mellitus * Hypertension I will be out the rest of this week. [facility] [place] [facility] nephrology will follow in my absence Current Visit: Yes (2) Near syncope Status: Acute Current Visit: Yes (3) Pleural effusion Status: Acute Current Visit: Yes (4) Coronary artery disease Status: Chronic Current Visit: Yes Qualifiers: Coronary Disease-Associated Artery/Lesion type: [place] artery [place] vs. transplanted heart: [place] heart Associated angina: without angina Qualified Code(s): I25.10 - Atherosclerotic heart disease of [place] coronary artery without angina pectoris (5) Diabetes mellitus Status: Chronic Current Visit: Yes Qualifiers: Diabetes mellitus type: type 2 (6) Hypertension Status: Chronic Current Visit: Yes Qualifiers: Hypertension type: essential hypertension Qualified Code(s): I10 - Essential (primary) hypertension (7) Severe aortic stenosis Status: Chronic Current Visit: Yes (8) Bradycardia Status: Resolved Current Visit: Yes
[2016-09-27] MEDS: IPRATROPIUM 500 MCG/2.5 ML NEB RESP TX SCH ×4 (01:20→20:40)
[2016-09-27 04:07] LABS: Basophils % 0.3 % (0.0-0.8); Eosinophils # 0.1 10*3/uL (0.0-0.87); Eosinophils % 0.9 % (0.00-10.9); Hematocrit 28.2 VOL% (42.0-52.0); Hemoglobin 9.5 GM/DL (14.0-18.0); Immature Granulocytes % 0.5 %; Immature Granulocytes Absolute 0.05 #; Lymphocytes # 0.7 10*3/uL (1.4-4.0); Lymphocytes % 7.6 % (21.2-54.2); Mean Corpuscular HGB Conc 33.7 GM/DL (32-36); Mean Corpuscular Hemoglobin 30 PG (27-34); Mean Corpuscular Volume 89.8 FL (87-102); Mean Platelet Volume 10.7 FL (9.6-12.0); Monocytes % 9.9 % (1.7-12.7); Neutrophils # 7.9 10*3/uL (1.4-7.4); Neutrophils % 80.8 % (38.7-73.9); Platelet Count 149 T/CUMM (130-400); Red Blood Count 3.14 MC/CUMM (3.8-5.5); Red Cell Distribution Width 14.4 % (9.3-17.3); White Blood Count 9.8 T/CUMM (4-12)
[2016-09-27 04:42] LABS: Magnesium 2.8 MG/DL (1.8-2.4); Osmolality,Calculated 293.3 MOS/KG (273-304); Potassium 3.2 MMOL/L (3.5-5.1)
--- NOTE | 2016-09-27 06:22 | Cardiothoracic Progress Note ---
Cardiothoracic Subjective Interval history: Patient had a fairly comfortable night. He is for CT of the chest with contrast later this morning. Exam (Progress Note) - Constitutional Vitals: Period Temp Pulse Resp BP Sys/Hurtado Pulse Ox Last 24 Hr 97.8 F-98.8 F 64-98 12-24 109-122/53-68 90-98 Result/EKG - Labs CBC & BMP: 09/27/16 03:22 09/27/16 03:22 Labs: Laboratory Results - last 24 hr 09/26/16 09/26/16 09/26/16 08:01 12:13 16:46 WBC RBC Hgb Hct MCV MCH MCHC RDW Plt Count MPV Neut % (Auto) Lymph % (Auto) [place] % (Auto) Eos % (Auto) Baso % (Auto) Neut # (Auto) Lymph # (Auto) [place] # (Auto) Eos # (Auto) Baso # (Auto) Immature Gran % Nucleated RBC % Immature Gran # Nucleated RBCs # Sodium Potassium Chloride Carbon Dioxide Anion Gap BUN Creatinine GFR Calculation BUN/Creatinine Ratio Glucose POC Glucose 144 H 318 H 84 Calculated Osmolality Calcium Magnesium 09/26/16 09/27/16 09/27/16 21:12 03:22 03:22 WBC 9.8 RBC 3.14 L Hgb 9.5 L Hct 28.2 L MCV 89.8 MCH 30 MCHC 33.7 RDW 14.4 Plt Count 149 MPV 10.7 Neut % (Auto) 80.8 H Lymph % (Auto) 7.6 L [place] % (Auto) 9.9 Eos % (Auto) 0.9 Baso % (Auto) 0.3 Neut # (Auto) 7.9 H Lymph # (Auto) 0.7 L [place] # (Auto) 1.0 H Eos # (Auto) 0.1 Baso # (Auto) 0.0 Immature Gran % 0.5 Nucleated RBC % 0.0 Immature Gran # 0.05 Nucleated RBCs # 0.00 Sodium 141 Potassium 3.2 L Chloride 97 L Carbon Dioxide 35 H Anion Gap 12.2 BUN 48 H Creatinine 1.90 H GFR Calculation 35 BUN/Creatinine Ratio 25.00 H Glucose 91 POC Glucose 92 Calculated Osmolality 293.3 Calcium 9.0 Magnesium 2.8 H Quality Measures - Stroke Onset of Symptoms Date: 09/05/16 Onset of Symptoms Time: 15:30 Symptom Onset Unknown: No
[2016-09-27] MEDS: INSULIN LISPRO 100 UNIT/ML SUBCUT SCH ×4 (07:40→20:58)
[2016-09-27] MEDS: NIACIN 500 MG TABLET PO SCH (08:55)
[2016-09-27] MEDS: GLIMEPIRIDE 4 MG TABLET PO SCH ×2 (08:55→17:19)
[2016-09-27] MEDS: PANTOPRAZOLE 40 MG TABLET PO SCH (08:55)
[2016-09-27] MEDS: ACETYLCYSTEINE 600 MG CAPSULE PO SCH ×2 (08:55→20:53)
[2016-09-27] MEDS: CITRIC ACID/SODIUM CITRATE 30 ML UDCUP PO SCH ×3 (08:56→21:03)
[2016-09-27] MEDS: ASPIRIN EC 81 MG TABLET PO SCH (08:56)
[2016-09-27] MEDS: INSULIN GLARGINE 100 UNIT/ML SUBCUT SCH (08:56)
[2016-09-27] MEDS: CARVEDILOL 3.125 MG TABLET PO SCH ×2 (08:56→20:54)
[2016-09-27] MEDS: FLUTICASONE 50 MCG NASAL SPRAY 16 GM BOTTLE BOTH NARES SCH ×2 (08:59→20:58)
--- NOTE | 2016-09-27 09:10 | Pulmonology Progress Note ---
Pulmonary - PN: Subj Interval history: This 86-year-old white male has congestive heart failure due to aortic stenosis. Also has atherosclerotic heart disease with previous coronary bypass surgery. Needs to have his IV aortic valve replaced. He has a right pleural effusion. His chest x-ray looks a little bit better today as far as the pulmonary edema is concerned. However we gave him Lasix yesterday and his creatinine has risen a little more. I think we would do best to get the right pleural fluid drained in preparation for surgery. Will ask interventional radiology to do this since it appears to be loculated laterally and would be safely done with ultrasound guidance. Patient is not sleeping well. Should tolerate some Ativan at bedtime. Quite anxious. I should note that the reason he has pleural fluid on the right and not the left is that he has had a previous left decortication. 09/18/2016 we have tried to diurese him and it has not been very successful. His creatinine has risen. He had a right thoracentesis with removal of 800 mL of fluid but he had his CT scan yesterday still showed significant right effusion. The pleural fluid is a transudate. Certainly think this is due to congestive heart failure, due to his aortic stenosis. It will be very difficult to treat his heart failure without the valve being replaced. However he is at high risk for surgery given his fragile state and acute kidney injury with Lasix and low cardiac output. Will ask nephrology to see if they can help us with this. Patient at present is about the same as far as her shortness of breath. He is empirically on antibiotics. 09/19/2016 he continues to complain of dyspnea. Primarily says he has trouble breathing through his nose. He is on 2 different nose sprays in his nasal passages appear open on my exam. I think is primarily short of breath related to his congestive heart failure/aortic stenosis. Renal function is a little better. Perhaps getting further out from contrast studies is helping. We do need to try to diurese him further. Nephrology is following as well. 09/20/2016 patient feels a little better sitting up in the chair. However his chest x-ray shows that the right pleural effusion has increased in size. Having a difficult time diuresing him with his creatinine 2.8. Would recommend putting a pleural catheter in the right side to drain this. Hopefully this will help us prep him for possible aortic valve replacement. The pleural effusion is due to congestive heart failure, however they are having a difficult time diuresing him. 09/21/2016 breathing is better since getting the pleural catheter. Chest x-ray today pending. Renal function getting a little better. Hopefully can plan aortic valve surgery soon. 09/22/2016 patient feels a little better. Should be able to tolerate nasal biprong's now. Chest x-ray shows the right pleural effusion has been evacuated. Put out about 200 mL from chest tube since yesterday morning. Need to keep it in for now. Renal function reports are pending from this morning. He does appear to be holding his own layer. Still has some peripheral edema and we need to bump with Lasix again. In my opinion he will need to have aortic valve surgery in order to get back to any meaningful life at home. Otherwise he will be a bed to chair existence. Certainly some risk involved as far as postoperative renal function and/or respiratory failure, but I favor proceeding with surgery next week. 09/23/2016 put out another 400 mL from his chest tube yesterday. Still has peripheral edema. We need to diurese him further. Renal insufficiency makes it difficult. Dr. Mehta wants to do a CT angiogram to further evaluate his aortic arch. His creatinine is down to 2.3. I feel sure further contrast would bump his creatinine up above 3 again and perhaps worse. I do think he would be better off having surgery then not having surgery. I do not think he can go home and come back as he still has a pleural catheter in. We may consider doing a pleurodesis, which is unusual for a transudative type effusion , and only works about half the time in this situation. 09/24/2016 his right pleural catheter came out during the night. Chest x-ray this morning shows the right lung well expanded. He does have some interstitial edema and some interstitial scarring. Creatinine has come down further to 2.1. We need to try to diurese him further. Would not replace the pleural catheter at this point. 09/25/2016 patient needs to be more active. Creatinine is come down to 1.9. Plans are for a CT angiogram of the chest tomorrow. Will need to watch renal function closely after that. Since the CT is planned I will not order chest x- ray 09/26/2016 CT angiogram was canceled because creatinine was up to 2.1. Defer to nephrology, cardiovascular surgery, and radiology on plans there. His chest x- ray shows recurrence of right pleural effusion. Not as much as before but still there. We are trying to diurese him as much as his kidneys will allow. He still has peripheral edema. 09/27/[address] today. Dr. Mehta to review to decide about surgery. Creatinine was 1.9 this morning. Patient had episode of increased dyspnea last night. Did get better with 1 mg of morphine. If he is to have surgery in the next couple of days, then the right pleural fluid could be drained at that time. If surgery is delayed for several days to follow renal function, then he should have the right pleural catheter replaced. Exam (Progress Note) - Constitutional Vitals: Period Temp Pulse Resp BP Sys/[place] Pulse Ox Last 24 Hr 97.7 F-98.8 F 64-98 16-24 109-126/53-76 90-98 Exam: Patient's alert, comfortable flat in bed. Vital signs normal. Wearing nasal oxygen. Pupils react to light. Throat clear. Neck supple no bruits. Chest shows a few basilar crackles at the right base. Dullness at right base to percussion. Heart normal rate rhythm grade 2/6 systolic murmur at right base. Abdomen soft nontender no masses. Bowel sounds present. Extremities no clubbing or cyanosis. 1+ edema. Calves nontender. Results - Labs CBC & BMP: 09/27/16 03:22 09/27/16 03:22 Lab Results: I have reviewed the past 24 hour labs Assessment and Plan (1) Syncope Status: Acute Assessment and plan: Syncope likely due to cardiac causes related to his aortic stenosis. 09/15/16 likely due to his aortic stenosis. 09/18/2016 again the syncope is likely due to his aortic stenosis. 09/20/2016 no symptoms of postural syncope at this time Current Visit: Yes (2) Chronic kidney disease Status: Chronic Assessment and plan: Creatinine is 2.1. He has had some renal insufficiency for quite some time related to vascular disease and diabetes. At present I think he is ahead on fluid. I will bump him with Lasix. 09/15/16 creatinine up to 2.3 after a dose of Lasix. Afraid to diurese any more vigorously at present. Asking interventional radiology to drain the loculated right effusion. This should help getting prepped for aortic valve replacement. 09/18/2016 creatinine up to 2.8. Difficulty mobilizing right pleural effusion fluid 09/19/2016 renal function is a little better today. Creatinine down to 2.4. May have had a bump in creatinine related to his contrast last week. 09/20/2016 creatinine up to 2.8. 09/21/2016 creatinine down to 2.5. Improving. Hopefully getting further out from contrast 09/22/2016 chemistries pending today. Hopefully can get creatinine back down to around 2. 09/23/2016 creatinine down to 2.3. This despite giving diuretics. 09/24/2016 creatinine down to 2.1. 09/25/2016 creatinine down to 1.9. This is about baseline for him. 09/26/2016 creatinine 2.1 today. Nephrology following. 09/27/2016 renal function about baseline for him at 1.9 creatinine. Likely will see a rise over the next couple of days due to the contrast today. Current Visit: Yes (3) Coronary artery disease Status: Chronic Assessment and plan: Previous coronary bypass surgery with additional findings at catheterization this admission. 09/25/2016 patient not having any active angina. Current Visit: Yes Qualifiers: Coronary Disease-Associated Artery/Lesion type: [place] artery [place] vs. transplanted heart: [place] heart Associated angina: without angina Qualified Code(s): I25.10 - Atherosclerotic heart disease of [place] coronary artery without angina pectoris (4) Pulmonary hypertension Status: Chronic Assessment and plan: This was not quantified on the echo but is likely to be secondary to his left heart disease with aortic stenosis. 09/15/16 this should be due to his aortic stenosis and congestive heart failure. 09/18/2016 secondary to his left heart disease. 09/20/2016 this is due to his left heart disease. 09/21/2016 due to left heart disease. 09/22/2016 this is secondary to his left heart disease, primarily aortic stenosis 09/23/2016 this is secondary to his aortic stenosis. 09/24/2016 secondary to left heart disease. 09/27/2016 again this is felt to be secondary to his left heart disease primarily aortic stenosis Current Visit: Yes (5) Severe aortic stenosis Status: Chronic Assessment and plan: Has severe aortic stenosis by echo and catheterization. Likely the possible cause of his congestive heart failure and pulmonary hypertension. 09/15/16 hopefully can have surgery when we get him tuned up. 09/18/2016 will need surgery if he can tolerate it. 09/19/2016 hopefully we can get him tuned up where he can tolerate AVR. 09/20/2016 aortic valve surgery is indicated when we can get him tuned up for it. 09/21/2016 need surgery. Trying to get him tuned up for that. If renal function is stable and right pleural effusion totally evacuated, then hopefully could plan sign. 09/22/2016 x-ray is better. Less dyspnea. If renal function is stable, I would be in favor of proceeding with surgery next week. 09/23/16 ideally should be repaired surgically or replaced. He has some chronic bronchitis but does not have severe COPD. 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 09/24/2016 again trying to tune him up so he can have his aortic valve replaced or repaired. 09/25/2016 trying to get him to the point where he can have his aortic valve replaced or repaired. Needs more physical activity. 09/26/2016 continuing to try to get him where he can tolerate aortic valve surgery. 09/27/[address] done this morning for Dr. Mehta to review. Current Visit: Yes (6) Diabetes mellitus Status: Chronic Assessment and plan: Has some hyperglycemia. Adding sliding scale. 09/15/16 glucoses in the 140-200 range. 09/18/2016 glucoses look okay. 09/19/2016 glucoses are fairly well controlled. 09/20/2016 glucoses look better. 09/21/2016 still mildly elevated glucoses. 09/22/2016 glucoses fairly well controlled. 09/23/2016 blood sugars are okay. 09/24/2016 glucoses are a little high. Adjust insulin, increase Lantus to 15 units. 09/25/2016 glucoses a little better. 09/26/2016 blood sugars are acceptable. 09/27/2016 blood sugars running in the 85-90 range. Current Visit: Yes Qualifiers: Diabetes mellitus type: type 2 (7) Acute bronchitis Status: Resolved Assessment and plan: Based on the change in sputum color and elevated white count 16,000 think is reasonable to cover him with antibiotics for this. Will use Atrovent for bronchodilators. 09/15/16 empirically on antibiotics and Atrovent. I think his main problem respiratory escobar is congestive heart failure related to his aortic stenosis. Would not delay surgery for bronchitis in this situation 09/18/2016 on empiric antibiotics. 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 It is sensitive to Cipro. I will change him to oral Cipro. 09/20/2016 I do not hear any rhonchi. He is on oral Cipro. 09/21/2016 bronchitis is improved. Probably needs a couple more days of Cipro. 09/22/2016 he has had a week's worth of antibiotics. Bronchitis is quiet now. We will stop Cipro. 09/23/2016 he has completed antibiotics. 09/25/2016 he is not coughing at present. Current Visit: Yes
--- NOTE | 2016-09-27 09:48 | CT Report ---
CT angio chest Indication: Need for revised median sternotomy. History of prior CABG using SINGH bypass. Evaluate position of SINGH bypass graft. CT ANGIOGRAM CHEST DLP: 258 mGy*cm. One or more of the following dose reduction techniques was used: Automated exposure control, adjustment of the mA and/or kV according the patient size, or use of iterative reconstruction techniques. Technique: Axial CT images of the chest were obtained during the arterial and venous phases of contrast injection. 3-D vascular MIPS reconstructions and multiplanar reformats were evaluated. Omnipaque 350, 100 cc. Comparison: Noncontrast CT chest 09/17/2016 Arteriogram: Significant atheromatous disease of the aortic arch is again shown. Left vertebral artery originates directly off the arch. At least 2 CABG markers are identified. The SINGH is identified and has been deviated posteriorly deeper into the mediastinum, and it generally remains left of midline. The SINGH appears to be patent to its final anastomosis in the LAD territory. Origin of the great vessels are widely patent. Mild tortuosity noted. There is no aortic dissection or aneurysm shown. Extensive calcified atheromatous disease of the coronary arteries noted. Calcifications of the aortic valve and mitral valve noted as well. Nonangiographic findings: Heart size remains upper limits normal. Mediastinal lymphadenopathy is present, largest node is precarinal measuring 14 mm short axis. No axillary or hilar lymphadenopathy. Loculated right pleural effusion is present with multiple pockets along the periphery of the right lung. There is a tiny left effusion present as well. Diffuse coarsened in significant interstitial prominence of the lungs noted, with mild central pulmonary vascular congestion, and extensive groundglass opacities with subpleural linear thickening, all most consistent with significant fluid overload. There is some peripheral calcifications within the parenchyma of the right lower lobe may represent granulomata versus pleural plaque. There is also some fluid present within the right minor fissure generating a "pseudotumor" appearance. Limited views of the upper abdomen show diffuse atheromatous disease but otherwise appear generally benign. Degenerative changes thoracic spine are mild. Impression: 1. Identification of the SINGH as detailed above. In general, it remains left of midline as it dives posteriorly and the mediastinum towards its final anastomosis. 2. Diffuse and significant calcified atheromatous disease. Mitral and aortic valve calcifications as well. 3. Borderline cardiomegaly. Pulmonary vascular congestion, diffuse groundglass opacity with subpleural linear abnormalities in the lungs, and loculated right pleural fluid, all evidence of CHF. 4. Mediastinal lymphadenopathy. 5. Multiple loculated fluid collections surrounding the right lung, as well as tiny left pleural effusion. PROCEDURE INTERPRETED AT [facility] DEPARTMENT OF RADIOLOGY Final Report Signed by: Roldan Narvaez M.D.
--- NOTE | 2016-09-27 12:45 | Cardiology Progress Note ---
<HsuNegroRosie E - Last Filed: 09/27/16 13:50> Assessment and Plan - Time spent with patient Time spent with patient: Less than 30 minutes (1) Severe aortic stenosis Status: Chronic Assessment and plan: SEE PLAN OF CARE LISTED BELOW. Current Visit: Yes (2) Syncope Status: Acute Assessment and plan: SEE PLAN OF CARE LISTED BELOW Current Visit: Yes (3) Atrial flutter by electrocardiogram Status: Acute Assessment and plan: SEE PLAN OF CARE LISTED BELOW Current Visit: Yes (4) Bradycardia Status: Resolved Assessment and plan: SEE PLAN OF CARE LISTED BELOW Current Visit: Yes (5) Coronary artery disease Status: Chronic Assessment and plan: SEE PLAN OF CARE LISTED BELOW Current Visit: Yes Qualifiers: Coronary Disease-Associated Artery/Lesion type: [place] artery [place] vs. transplanted heart: [place] heart Associated angina: without angina Qualified Code(s): I25.10 - Atherosclerotic heart disease of [place] coronary artery without angina pectoris (6) Hypertension Status: Chronic Assessment and plan: SEE PLAN OF CARE LISTED BELOW Current Visit: Yes (7) Hyperlipidemia Status: Chronic Assessment and plan: SEE PLAN OF CARE LISTED BELOW Current Visit: Yes (8) Diabetes mellitus Status: Chronic Assessment and plan: SEE PLAN OF CARE LISTED BELOW Current Visit: Yes Qualifiers: Diabetes mellitus type: type 2 (9) Acute on chronic renal failure Status: Acute Assessment and plan: SEE PLAN OF CARE LISTED BELOW Current Visit: Yes (10) Leukocytosis Status: Resolved Assessment and plan: SEE PLAN OF CARE LISTED BELOW Current Visit: Yes (11) Epistaxis Status: Resolved Assessment and plan: SEE PLAN OF CARE LISTED BELOW Current Visit: Yes (12) Pleural effusion Status: Acute Assessment and plan: SEE PLAN OF CARE LISTED BELOW. Current Visit: Yes Cardiology - PN: Subj Interval history: INFORMATION SYSTEMS ADMINISTRATOR: DR. ALEXANDER Mr. Frazier is a 86 year old male with a history of coronary artery disease, hypertension, hyperlipidemia, type 2 diabetes mellitus, chronic kidney disease. He is status post coronary artery bypass grafting August 06 2001 with SINGH to the LAD and vein graft to the circumflex marginal and right coronary arteries. He is status post right carotid endarterectomy July 03, 2002. He was admitted to the hospital after an episode of syncope and prolonged weakness. He was initially in atrial flutter, bradycardia, junctional rhythm, no atrial flutter, with normal conduction. He was on no zackery blocking agents. An echocardiogram was performed with showed severe aortic stenosis with preserved ejection fraction. He had some trivial troponin elevation in the setting of an elevated creatinine. Urine toxicology was negative. 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 Mr. Frazier has had trouble with dyspnea and decreased O2 saturations past couple of days. Pulmonology has seen him in consultation and due to a right pleural effusion, he underwent ultrasound-guided thoracentesis September 15 where he was drained of 800 cc of straw-colored, blood-tinged fluid. He has been seen by CV surgery and underwent chest CTA today for further evaluation of the position of his SINGH bypass graft. Hopefully he will be able to undergo surgery soon. He is sitting up in the chair upon exam today and reports he feels better today than yesterday. He reports his breathing is improved today. ASSESSMENT/PLAN: 1. SEVERE AORTIC STENOSIS - Dr. Mehta has been consulted and tentatively plans perform AVR next week. Echocardiogram showed severe aortic stenosis and cardiac catheterization root revealed patency of an internal mammary graft and circumflex graft although the circumflex graft has an ostial stenosis. The right coronary graft is occluded but the [place] right coronary does not have significant obstructive lesions. The procedure is made somewhat more risky by his age, renal dysfunction, and presence of a patent internal mammary graft. This was further evaluated with CTA today. He has developed some peripheral edema. We will continue supportive care with diuresis. 2. SYNCOPE - Carotid doppler ultrasound reveals right ICA with 50-69% stenosis. CT of the brain was negative. This could have been related to bradycardia or his aortic stenosis. Neurology has seen him in consultation and does not feel he has suffered a TIA at this time. 3. ATRIAL FLUTTER - CHADSVASC 5. Anticoagulation has been held pending surgery next week. He has been started on a beta demarco and has tolerated this well. 4. BRADYCARDIA - Resolved. Will continue to monitor. 5. CORONARY ARTERY DISEASE - He is status post coronary artery bypass grafting August 06 2001 with SINGH to the LAD and vein graft to the circumflex marginal and right coronary arteries. Cardiac catheterization on 09/13/2016 revealed severe [place] three-vessel and ostial left main coronary artery disease with 2 of 3 bypass grafts patent. There is an ostial pinch in the saphenous vein graft to the obtuse marginal branch. The right coronary artery graft is occluded but the right coronary artery does not have any significant high-grade disease at this time. 6. HYPERTENSION -this is currently well controlled on the current therapy. Will continue to monitor and adjust accordingly. Medication changes were made yesterday and he is now on Coreg and hydralazine. 7. HYPERLIPIDEMIA - Continue lipid lowering agent. FLP revealed triglycerides 98 , cholesterol 127, LDL 60, HDL 54. 8. DIABETES - He is on accuchecks with sliding scale insulin. Continue current plan of care. 9. ACUTE ON CHRONIC RENAL FAILURE - Will continue to monitor BMP. Risk for perioperative complications was discussed with the patient. Creatinine continued to rise and nephrology was consulted. He did have a CT with contrast on 09/15/16. 10. PLEURAL EFFUSION - Status post thoracentesis September 15. Patient is being seen by pulmonary. They feel that this is secondary to patient's congestive heart failure due to his aortic stenosis. It has been difficult to diurese him since the creatinine continued to rise. We will continue to monitor this with daily BMP. Nephrology has been consulted to further assist. He underwent right sided chest tube placement by interventional radiology on 09/20 and put out over 1 liter after insertion. He had significant results from this; however, over the weekend, his right pleural catheter came out during the night. We will continue with diuresis. Creatinine 1.9 today. Chest CTA done this morning revealed multiple loculated fluid collections surrounding the right lung as well as a tiny left pleural effusion. If he is to have surgery in the next couple days and this could possibly be drained at that time but surgery is delayed we may have to consider replacing the right pleural catheter. Exam (Progress Note) - Constitutional Vitals: Period Temp Pulse Resp BP Sys/Hurtado Pulse Ox Last 24 Hr 97.7 F-98.8 F 64-98 16-24 109-126/53-76 90-98 Exam: General: Appears chronically ill. HEENT: PERRL, normocephalic, atraumatic. Mucous membranes moist. No jaundice noted. Neck: No JVD/HJR, no thyromegaly or lymphadenopathy noted. Cardiac: Atrial flutter with controlled ventricular rate. Systolic murmur consistent with aortic stenosis. Lungs: Bibasilar crackles posteriorly. Abdomen: Soft, bowel sounds normoactive. Nontender and nondistended. No abdominal bruit or thrill noted. No masses noted. Extremities: No clubbing, cyanosis noted. 2+ edema noted to BUE/BLE. Upper extremity pulses 2+. Lower extremity pulses 2+. Capillary refill less than 3 seconds. Skin: No unusual lesions or rashes. No skin breakdown appreciated. Neuro: Awake, alert and oriented 3. Moves all extremities well without hemiparesis or paralysis. No essential tremor is appreciated. Result/EKG - Labs CBC & BMP: 09/27/16 03:22 09/27/16 03:22 Lab Results: I have reviewed the past 24 hour labs Labs: Laboratory Results - last 24 hr 09/26/16 09/26/16 09/27/16 16:46 21:12 03:22 WBC 9.8 RBC 3.14 L Hgb 9.5 L Hct 28.2 L MCV 89.8 MCH 30 MCHC 33.7 RDW 14.4 Plt Count 149 MPV 10.7 Neut % (Auto) 80.8 H Lymph % (Auto) 7.6 L Letcher % (Auto) 9.9 Eos % (Auto) 0.9 Baso % (Auto) 0.3 Neut # (Auto) 7.9 H Lymph # (Auto) 0.7 L [place]cher # (Auto) 1.0 H Eos # (Auto) 0.1 Baso # (Auto) 0.0 Immature Gran % 0.5 Nucleated RBC % 0.0 Immature Gran # 0.05 Nucleated RBCs # 0.00 Sodium Potassium Chloride Carbon Dioxide Anion Gap BUN Creatinine GFR Calculation BUN/Creatinine Ratio Glucose POC Glucose 84 92 Calculated Osmolality Calcium Magnesium 09/27/16 09/27/16 09/27/16 03:22 07:33 12:09 WBC RBC Hgb Hct MCV MCH MCHC RDW Plt Count MPV Neut % (Auto) Lymph % (Auto) Letcher % (Auto) Eos % (Auto) Baso % (Auto) Neut # (Auto) Lymph # (Auto) Letcher # (Auto) Eos # (Auto) Baso # (Auto) Immature Gran % Nucleated RBC % Immature Gran # Nucleated RBCs # Sodium 141 Potassium 3.2 L Chloride 97 L Carbon Dioxide 35 H Anion Gap 12.2 BUN 48 H Creatinine 1.90 H GFR Calculation 35 BUN/Creatinine Ratio 25.00 H Glucose 91 POC Glucose 88 224 H Calculated Osmolality 293.3 Calcium 9.0 Magnesium 2.8 H - EKG EKG results: interpreted by me (atrial flutter) Quality Measures - Stroke Onset of Symptoms Date: 09/05/16 Onset of Symptoms Time: 15:30 Symptom Onset Unknown: No <Eduardo Flores - Last Filed: 09/27/16 15:34> Exam (Progress Note) - Constitutional Vitals: Period Temp Pulse Resp BP Sys/Hurtado Pulse Ox Last 24 Hr 97.7 F-98.8 F 64-97 16-22 109-126/53-76 90-98 Result/EKG - Labs CBC & BMP: 09/27/16 03:22 09/27/16 03:22 Labs: Laboratory Results - last 24 hr 09/26/16 09/26/16 09/27/16 16:46 21:12 03:22 WBC 9.8 RBC 3.14 L Hgb 9.5 L Hct 28.2 L MCV 89.8 MCH 30 MCHC 33.7 RDW 14.4 Plt Count 149 MPV 10.7 Neut % (Auto) 80.8 H Lymph % (Auto) 7.6 L Letcher % (Auto) 9.9 Eos % (Auto) 0.9 Baso % (Auto) 0.3 Neut # (Auto) 7.9 H Lymph # (Auto) 0.7 L Letcher # (Auto) 1.0 H Eos # (Auto) 0.1 Baso # (Auto) 0.0 Immature Gran % 0.5 Nucleated RBC % 0.0 Immature Gran # 0.05 Nucleated RBCs # 0.00 Sodium Potassium Chloride Carbon Dioxide Anion Gap BUN Creatinine GFR Calculation BUN/Creatinine Ratio Glucose POC Glucose 84 92 Calculated Osmolality Calcium Magnesium 09/27/16 09/27/16 09/27/16 03:22 07:33 12:09 WBC RBC Hgb Hct MCV MCH MCHC RDW Plt Count MPV Neut % (Auto) Lymph % (Auto) [place] % (Auto) Eos % (Auto) Baso % (Auto) Neut # (Auto) Lymph # (Auto) Letcher # (Auto) Eos # (Auto) Baso # (Auto) Immature Gran % Nucleated RBC % Immature Gran # Nucleated RBCs # Sodium 141 Potassium 3.2 L Chloride 97 L Carbon Dioxide 35 H Anion Gap 12.2 BUN 48 H Creatinine 1.90 H GFR Calculation 35 BUN/Creatinine Ratio 25.00 H Glucose 91 POC Glucose 88 224 H Calculated Osmolality 293.3 Calcium 9.0 Magnesium 2.8 H
--- NOTE | 2016-09-27 15:26 | Nephrology Progress Note ---
Nephrology - PN: Subj Interval history: Mr. Frazier is seen in follow-up of his chronic renal impairment. His creatinine today was 1.[address] angiogram today that demonstrated the left internal mammary graft generally to the left of midline. His chest is clear and his heart without gallop. We will continue to follow and will check a creatinine tomorrow. Will monitor for any adverse effects of contrast on his renal function but hopefully those will not occur. Exam (PN)-Nephrology - Vital Signs Vital signs: Period Temp Pulse Resp BP Sys/[place] Pulse Ox Last 24 Hr 97.7 F-98.8 F 64-97 16-22 109-126/53-76 90-98 - Lab 09/27/16 03:22 09/27/16 03:22 Most recent lab results ABG pH 7.465 (7.35-7.45) H 09/14/16 06:00 ABG pCO2 28.8 MM HG (35-48) L 09/14/16 06:00 ABG pO2 64.1 MM HG (80-95) L 09/14/16 06:00 ABG HCO3 20.3 MMOL/L (20-26) 09/14/16 06:00 ABG O2 Saturation 93.0 % (95-100) L 09/14/16 06:00 Calcium 9.0 MG/DL (8.5-10.1) 09/27/16 03:22 Magnesium 2.8 MG/DL (1.8-2.4) H 09/27/16 03:22
[2016-09-27] MEDS: ATORVASTATIN 80 MG TABLET PO SCH (20:53)
[2016-09-28] MEDS: IPRATROPIUM 500 MCG/2.5 ML NEB RESP TX SCH ×4 (01:11→19:14)
[2016-09-28 04:32] LABS: Basophils % 0.2 % (0.0-0.8); Eosinophils # 0.2 10*3/uL (0.0-0.87); Eosinophils % 1.6 % (0.00-10.9); Hematocrit 28.2 VOL% (42.0-52.0); Hemoglobin 9.3 GM/DL (14.0-18.0); Immature Granulocytes % 0.5 %; Immature Granulocytes Absolute 0.05 #; Lymphocytes # 0.8 10*3/uL (1.4-4.0); Lymphocytes % 8.5 % (21.2-54.2); Mean Corpuscular Hemoglobin 30 PG (27-34); Mean Corpuscular Volume 90.7 FL (87-102); Mean Platelet Volume 9.8 FL (9.6-12.0); Monocytes # 1.1 10*3/uL (0.11-0.8); Monocytes % 11.5 % (1.7-12.7); Neutrophils # 7.1 10*3/uL (1.4-7.4); Neutrophils % 77.7 % (38.7-73.9); Platelet Count 139 T/CUMM (130-400); Red Blood Count 3.11 MC/CUMM (3.8-5.5); Red Cell Distribution Width 14.6 % (9.3-17.3); White Blood Count 9.1 T/CUMM (4-12)
[2016-09-28 05:02] LABS: Calcium 8.8 MG/DL (8.5-10.1); Magnesium 2.8 MG/DL (1.8-2.4); Osmolality,Calculated 295.1 MOS/KG (273-304); Potassium 4.1 MMOL/L (3.5-5.1)
--- NOTE | 2016-09-28 08:43 | Pulmonology Progress Note ---
Pulmonary - PN: Subj Interval history: This 86-year-old white male has congestive heart failure due to aortic stenosis. Also has atherosclerotic heart disease with previous coronary bypass surgery. Needs to have his IV aortic valve replaced. He has a right pleural effusion. His chest x-ray looks a little bit better today as far as the pulmonary edema is concerned. However we gave him Lasix yesterday and his creatinine has risen a little more. I think we would do best to get the right pleural fluid drained in preparation for surgery. Will ask interventional radiology to do this since it appears to be loculated laterally and would be safely done with ultrasound guidance. Patient is not sleeping well. Should tolerate some Ativan at bedtime. Quite anxious. I should note that the reason he has pleural fluid on the right and not the left is that he has had a previous left decortication. 09/18/2016 we have tried to diurese him and it has not been very successful. His creatinine has risen. He had a right thoracentesis with removal of 800 mL of fluid but he had his CT scan yesterday still showed significant right effusion. The pleural fluid is a transudate. Certainly think this is due to congestive heart failure, due to his aortic stenosis. It will be very difficult to treat his heart failure without the valve being replaced. However he is at high risk for surgery given his fragile state and acute kidney injury with Lasix and low cardiac output. Will ask nephrology to see if they can help us with this. Patient at present is about the same as far as her shortness of breath. He is empirically on antibiotics. 09/19/2016 he continues to complain of dyspnea. Primarily says he has trouble breathing through his nose. He is on 2 different nose sprays in his nasal passages appear open on my exam. I think is primarily short of breath related to his congestive heart failure/aortic stenosis. Renal function is a little better. Perhaps getting further out from contrast studies is helping. We do need to try to diurese him further. Nephrology is following as well. 09/20/2016 patient feels a little better sitting up in the chair. However his chest x-ray shows that the right pleural effusion has increased in size. Having a difficult time diuresing him with his creatinine 2.8. Would recommend putting a pleural catheter in the right side to drain this. Hopefully this will help us prep him for possible aortic valve replacement. The pleural effusion is due to congestive heart failure, however they are having a difficult time diuresing him. 09/21/2016 breathing is better since getting the pleural catheter. Chest x-ray today pending. Renal function getting a little better. Hopefully can plan aortic valve surgery soon. 09/22/2016 patient feels a little better. Should be able to tolerate nasal biprong's now. Chest x-ray shows the right pleural effusion has been evacuated. Put out about 200 mL from chest tube since yesterday morning. Need to keep it in for now. Renal function reports are pending from this morning. He does appear to be holding his own layer. Still has some peripheral edema and we need to bump with Lasix again. In my opinion he will need to have aortic valve surgery in order to get back to any meaningful life at home. Otherwise he will be a bed to chair existence. Certainly some risk involved as far as postoperative renal function and/or respiratory failure, but I favor proceeding with surgery next week. 09/23/2016 put out another 400 mL from his chest tube yesterday. Still has peripheral edema. We need to diurese him further. Renal insufficiency makes it difficult. Dr. Mehta wants to do a CT angiogram to further evaluate his aortic arch. His creatinine is down to 2.3. I feel sure further contrast would bump his creatinine up above 3 again and perhaps worse. I do think he would be better off having surgery then not having surgery. I do not think he can go home and come back as he still has a pleural catheter in. We may consider doing a pleurodesis, which is unusual for a transudative type effusion , and only works about half the time in this situation. 09/24/2016 his right pleural catheter came out during the night. Chest x-ray this morning shows the right lung well expanded. He does have some interstitial edema and some interstitial scarring. Creatinine has come down further to 2.1. We need to try to diurese him further. Would not replace the pleural catheter at this point. 09/25/2016 patient needs to be more active. Creatinine is come down to 1.9. Plans are for a CT angiogram of the chest tomorrow. Will need to watch renal function closely after that. Since the CT is planned I will not order chest x- ray 09/26/2016 CT angiogram was canceled because creatinine was up to 2.1. Defer to nephrology, cardiovascular surgery, and radiology on plans there. His chest x- ray shows recurrence of right pleural effusion. Not as much as before but still there. We are trying to diurese him as much as his kidneys will allow. He still has peripheral edema. 09/27/[address]ogram today. Dr. Mehta to review to decide about surgery. Creatinine was 1.9 this morning. Patient had episode of increased dyspnea last night. Did get better with 1 mg of morphine. If he is to have surgery in the next couple of days, then the right pleural fluid could be drained at that time. If surgery is delayed for several days to follow renal function, then he should have the right pleural catheter replaced. 09/28/2016 patient feels better today. Sleeping better. Less dyspneic. Chest CT angiogram done yesterday and creatinine remains 1.9. Dr. Mehta to review the CT and make plans as far as surgery is concerned. Patient is anxious to go ahead with the surgery. Exam (Progress Note) - Constitutional Vitals: Period Temp Pulse Resp BP Sys/[place] Pulse Ox Last 24 Hr 97.3 F-99.2 F 91-97 16-20 111-128/46-71 91-97 Exam: Patient's alert, comfortable flat in bed. Vital signs normal. Wearing nasal oxygen. Pupils react to light. Throat clear. Neck supple no bruits. Chest shows a few basilar crackles at the right base. Dullness at right base to percussion. Heart normal rate rhythm grade 2/6 systolic murmur at right base. Abdomen soft nontender no masses. Bowel sounds present. Extremities no clubbing or cyanosis. 1+ edema. Calves nontender. Results - Labs CBC & BMP: 09/28/16 04:20 09/28/16 04:20 Lab Results: I have reviewed the past 24 hour labs Assessment and Plan (1) Syncope Status: Acute Assessment and plan: Syncope likely due to cardiac causes related to his aortic stenosis. 09/15/16 likely due to his aortic stenosis. 09/18/2016 again the syncope is likely due to his aortic stenosis. 09/20/2016 no symptoms of postural syncope at this time Current Visit: Yes (2) Chronic kidney disease Status: Chronic Assessment and plan: Creatinine is 2.1. He has had some renal insufficiency for quite some time related to vascular disease and diabetes. At present I think he is ahead on fluid. I will bump him with Lasix. 09/15/16 creatinine up to 2.3 after a dose of Lasix. Afraid to diurese any more vigorously at present. Asking interventional radiology to drain the loculated right effusion. This should help getting prepped for aortic valve replacement. 09/18/2016 creatinine up to 2.8. Difficulty mobilizing right pleural effusion fluid 09/19/2016 renal function is a little better today. Creatinine down to 2.4. May have had a bump in creatinine related to his contrast last week. 09/20/2016 creatinine up to 2.8. 09/21/2016 creatinine down to 2.5. Improving. Hopefully getting further out from contrast 09/22/2016 chemistries pending today. Hopefully can get creatinine back down to around 2. 09/23/2016 creatinine down to 2.3. This despite giving diuretics. 09/24/2016 creatinine down to 2.1. 09/25/2016 creatinine down to 1.9. This is about baseline for him. 09/26/2016 creatinine 2.1 today. Nephrology following. 09/27/2016 renal function about baseline for him at 1.9 creatinine. Likely will see a rise over the next couple of days due to the contrast today. 09/28/2016 creatinine 1.9 and appear stable despite getting repeat contrast yesterday Current Visit: Yes (3) Coronary artery disease Status: Chronic Assessment and plan: Previous coronary bypass surgery with additional findings at catheterization this admission. 09/25/2016 patient not having any active angina. 09/28/2016 previous coronary bypass surgery. Current Visit: Yes Qualifiers: Coronary Disease-Associated Artery/Lesion type: [place] artery [place] vs. transplanted heart: [place] heart Associated angina: without angina Qualified Code(s): I25.10 - Atherosclerotic heart disease of [place] coronary artery without angina pectoris (4) Pulmonary hypertension Status: Chronic Assessment and plan: This was not quantified on the echo but is likely to be secondary to his left heart disease with aortic stenosis. 09/15/16 this should be due to his aortic stenosis and congestive heart failure. 09/18/2016 secondary to his left heart disease. 09/20/2016 this is due to his left heart disease. 09/21/2016 due to left heart disease. 09/22/2016 this is secondary to his left heart disease, primarily aortic stenosis 09/23/2016 this is secondary to his aortic stenosis. 09/24/2016 secondary to left heart disease. 09/27/2016 again this is felt to be secondary to his left heart disease primarily aortic stenosis 09/28/2016 apparently due to left heart disease/aortic stenosis Current Visit: Yes (5) Severe aortic stenosis Status: Chronic Assessment and plan: Has severe aortic stenosis by echo and catheterization. Likely the possible cause of his congestive heart failure and pulmonary hypertension. 09/15/16 hopefully can have surgery when we get him tuned up. 09/18/2016 will need surgery if he can tolerate it. 09/19/2016 hopefully we can get him tuned up where he can tolerate AVR. 09/20/2016 aortic valve surgery is indicated when we can get him tuned up for it. 09/21/2016 need surgery. Trying to get him tuned up for that. If renal function is stable and right pleural effusion totally evacuated, then hopefully could plan sign. 09/22/2016 x-ray is better. Less dyspnea. If renal function is stable, I would be in favor of proceeding with surgery next week. 09/23/16 ideally should be repaired surgically or replaced. He has some chronic bronchitis but does not have severe COPD. 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 09/24/2016 again trying to tune him up so he can have his aortic valve replaced or repaired. 09/25/2016 trying to get him to the point where he can have his aortic valve replaced or repaired. Needs more physical activity. 09/26/2016 continuing to try to get him where he can tolerate aortic valve surgery. 09/27/[address] done this morning for Dr. Mehta to review. 09/28/[address] Dr[address] Mehta to review CT and decide whether to proceed with aortic valve replacement or repair Current Visit: Yes (6) Diabetes mellitus Status: Chronic Assessment and plan: Has some hyperglycemia. Adding sliding scale. 09/15/16 glucoses in the 140-200 range. 09/18/2016 glucoses look okay. 09/19/2016 glucoses are fairly well controlled. 09/20/2016 glucoses look better. 09/21/2016 still mildly elevated glucoses. 09/22/2016 glucoses fairly well controlled. 09/23/2016 blood sugars are okay. 09/24/2016 glucoses are a little high. Adjust insulin, increase Lantus to 15 units. 09/25/2016 glucoses a little better. 09/26/2016 blood sugars are acceptable. 09/27/2016 blood sugars running in the 85-90 range. 09/28/2016 glucoses well controlled. Current Visit: Yes Qualifiers: Diabetes mellitus type: type 2 (7) Acute bronchitis Status: Resolved Assessment and plan: Based on the change in sputum color and elevated white count 16,000 think is reasonable to cover him with antibiotics for this. Will use Atrovent for bronchodilators. 09/15/16 empirically on antibiotics and Atrovent. I think his main problem respiratory escobar is congestive heart failure related to his aortic stenosis. Would not delay surgery for bronchitis in this situation 09/18/2016 on empiric antibiotics. 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 It is sensitive to Cipro. I will change him to oral Cipro. 09/20/2016 I do not hear any rhonchi. He is on oral Cipro. 09/21/2016 bronchitis is improved. Probably needs a couple more days of Cipro. 09/22/2016 he has had a week's worth of antibiotics. Bronchitis is quiet now. We will stop Cipro. 09/23/2016 he has completed antibiotics. 09/25/2016 he is not coughing at present. Current Visit: Yes
[2016-09-28] MEDS: INSULIN LISPRO 100 UNIT/ML SUBCUT SCH ×4 (08:45→21:18)
[2016-09-28] MEDS: ACETYLCYSTEINE 600 MG CAPSULE PO SCH ×2 (08:56→21:17)
[2016-09-28] MEDS: GLIMEPIRIDE 4 MG TABLET PO SCH ×2 (08:56→16:30)
[2016-09-28] MEDS: ASPIRIN EC 81 MG TABLET PO SCH (08:56)
[2016-09-28] MEDS: CARVEDILOL 3.125 MG TABLET PO SCH ×2 (08:56→21:17)
[2016-09-28] MEDS: PANTOPRAZOLE 40 MG TABLET PO SCH (08:56)
[2016-09-28] MEDS: NIACIN 500 MG TABLET PO SCH (08:56)
[2016-09-28] MEDS: INSULIN GLARGINE 100 UNIT/ML SUBCUT SCH (08:57)
[2016-09-28] MEDS: CITRIC ACID/SODIUM CITRATE 30 ML UDCUP PO SCH ×3 (08:57→21:18)
[2016-09-28] MEDS: FLUTICASONE 50 MCG NASAL SPRAY 16 GM BOTTLE BOTH NARES SCH ×2 (08:57→21:18)
--- NOTE | 2016-09-28 10:43 | Cardiothoracic Progress Note ---
Cardiothoracic Subjective Interval history: Patient looks and feels better today. Creatinine today is 1.9 which is about as good as he is been able to achieve here in the hospital. We will watch this closely but I think it is reasonable to consider proceeding with surgery on Sunday. I have discussed this with him and he is willing so I will follow closely over the next few days but I have tentatively scheduled for Sunday. Exam (Progress Note) - Constitutional Vitals: Period Temp Pulse Resp BP Sys/[place] Pulse Ox Last 24 Hr 97.3 F-99.2 F 91-98 16-20 111-128/46-71 91-99 Result/EKG - Labs CBC & BMP: 09/28/16 04:20 09/28/16 04:20 Labs: Laboratory Results - last 24 hr 09/27/16 09/27/16 09/27/16 12:09 16:41 20:07 WBC RBC Hgb Hct MCV MCH MCHC RDW Plt Count MPV Neut % (Auto) Lymph % (Auto) [place] % (Auto) Eos % (Auto) Baso % (Auto) Neut # (Auto) Lymph # (Auto) [place] # (Auto) Eos # (Auto) Baso # (Auto) Immature Gran % Nucleated RBC % Immature Gran # Nucleated RBCs # Sodium Potassium Chloride Carbon Dioxide Anion Gap BUN Creatinine GFR Calculation BUN/Creatinine Ratio Glucose POC Glucose 224 H 181 H 89 Calculated Osmolality Calcium Magnesium 09/28/16 09/28/16 09/28/16 04:20 04:20 07:55 WBC 9.1 RBC 3.11 L Hgb 9.3 L Hct 28.2 L MCV 90.7 MCH 30 MCHC 33.0 RDW 14.6 Plt Count 139 MPV 9.8 Neut % (Auto) 77.7 H Lymph % (Auto) 8.5 L [place] % (Auto) 11.5 Eos % (Auto) 1.6 Baso % (Auto) 0.2 Neut # (Auto) 7.1 Lymph # (Auto) 0.8 L [place] # (Auto) 1.1 H Eos # (Auto) 0.2 Baso # (Auto) 0.0 Immature Gran % 0.5 Nucleated RBC % 0.0 Immature Gran # 0.05 Nucleated RBCs # 0.00 Sodium 142 Potassium 4.1 Chloride 99 Carbon Dioxide 36 H Anion Gap 11.1 BUN 46 H Creatinine 1.90 H GFR Calculation 34 BUN/Creatinine Ratio 24.00 H Glucose 114 H POC Glucose 100 Calculated Osmolality 295.1 Calcium 8.8 Magnesium 2.8 H Quality Measures - Stroke Onset of Symptoms Date: 09/05/16 Onset of Symptoms Time: 15:30 Symptom Onset Unknown: No
--- NOTE | 2016-09-28 11:03 | Cardiology Progress Note ---
<HsuNegro manciaen E - Last Filed: 09/28/16 11:51> Assessment and Plan - Time spent with patient Time spent with patient: Less than 30 minutes (1) Severe aortic stenosis Status: Chronic Assessment and plan: SEE PLAN OF CARE LISTED BELOW. Current Visit: Yes (2) Syncope Status: Acute Assessment and plan: SEE PLAN OF CARE LISTED BELOW Current Visit: Yes (3) Atrial flutter by electrocardiogram Status: Acute Assessment and plan: SEE PLAN OF CARE LISTED BELOW Current Visit: Yes (4) Bradycardia Status: Resolved Assessment and plan: SEE PLAN OF CARE LISTED BELOW Current Visit: Yes (5) Coronary artery disease Status: Chronic Assessment and plan: SEE PLAN OF CARE LISTED BELOW Current Visit: Yes Qualifiers: Coronary Disease-Associated Artery/Lesion type: [place] artery [place] vs. transplanted heart: [place] heart Associated angina: without angina Qualified Code(s): I25.10 - Atherosclerotic heart disease of [place] coronary artery without angina pectoris (6) Hypertension Status: Chronic Assessment and plan: SEE PLAN OF CARE LISTED BELOW Current Visit: Yes (7) Hyperlipidemia Status: Chronic Assessment and plan: SEE PLAN OF CARE LISTED BELOW Current Visit: Yes (8) Diabetes mellitus Status: Chronic Assessment and plan: SEE PLAN OF CARE LISTED BELOW Current Visit: Yes Qualifiers: Diabetes mellitus type: type 2 (9) Acute on chronic renal failure Status: Acute Assessment and plan: SEE PLAN OF CARE LISTED BELOW Current Visit: Yes (10) Leukocytosis Status: Resolved Assessment and plan: SEE PLAN OF CARE LISTED BELOW Current Visit: Yes (11) Epistaxis Status: Resolved Assessment and plan: SEE PLAN OF CARE LISTED BELOW Current Visit: Yes (12) Pleural effusion Status: Acute Assessment and plan: SEE PLAN OF CARE LISTED BELOW. Current Visit: Yes Cardiology - PN: Subj Interval history: VASCULAR SPECIALISTS: DR. ALEXANDER Mr. Frazier is a 86 year old male with a history of coronary artery disease, hypertension, hyperlipidemia, type 2 diabetes mellitus, chronic kidney disease. He is status post coronary artery bypass grafting August 06 2001 with SINGH to the LAD and vein graft to the circumflex marginal and right coronary arteries. He is status post right carotid endarterectomy July 03, 2002. He was admitted to the hospital after an episode of syncope and prolonged weakness. He was initially in atrial flutter, bradycardia, junctional rhythm, no atrial flutter, with normal conduction. He was on no zackery blocking agents. An echocardiogram was performed with showed severe aortic stenosis with preserved ejection fraction. He had some trivial troponin elevation in the setting of an elevated creatinine. Urine toxicology was negative. 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 Mr. Frazier has had trouble with dyspnea and decreased O2 saturations past couple of days. Pulmonology has seen him in consultation and due to a right pleural effusion, he underwent ultrasound-guided thoracentesis September 15 where he was drained of 800 cc of straw-colored, blood-tinged fluid. He has been seen by CV surgery and underwent chest CTA on 09/27/16 for further evaluation of the position of his SINGH bypass graft. He is sitting up in the chair upon exam today and reports he feels better. His lower extremity edema is stable, but he seems to be in better spirits today than he has the past week. ASSESSMENT/PLAN: 1. SEVERE AORTIC STENOSIS - Dr. Mehta has been consulted and tentatively plans perform AVR next week. Echocardiogram showed severe aortic stenosis and cardiac catheterization root revealed patency of an internal mammary graft and circumflex graft although the circumflex graft has an ostial stenosis. The right coronary graft is occluded but the [place] right coronary does not have significant obstructive lesions. The procedure is made somewhat more risky by his age, renal dysfunction, and presence of a patent internal mammary graft. This was further evaluated with CTA on 09/27/16. He has some peripheral edema and continues to have bibasilar rales posteriorly. We will continue supportive care with diuresis. He is tentatively scheduled for surgery with Dr. Mehta on Sunday. 2. SYNCOPE - Carotid doppler ultrasound reveals right ICA with 50-69% stenosis. CT of the brain was negative. This could have been related to bradycardia or his aortic stenosis. Neurology has seen him in consultation and does not feel he has suffered a TIA at this time. 3. ATRIAL FLUTTER - CHADSVASC 5. Anticoagulation has been held pending surgery next week. He has been started on a beta demarco and has tolerated this well. 4. BRADYCARDIA - Resolved. Will continue to monitor. 5. CORONARY ARTERY DISEASE - He is status post coronary artery bypass grafting August 06 2001 with SINGH to the LAD and vein graft to the circumflex marginal and right coronary arteries. Cardiac catheterization on 09/13/2016 revealed severe [place] three-vessel and ostial left main coronary artery disease with 2 of 3 bypass grafts patent. There is an ostial pinch in the saphenous vein graft to the obtuse marginal branch. The right coronary artery graft is occluded but the right coronary artery does not have any significant high-grade disease at this time. 6. HYPERTENSION -this is currently well controlled on the current therapy. Will continue to monitor and adjust accordingly. Medication changes were made and he is now on Coreg and hydralazine. 7. HYPERLIPIDEMIA - Continue lipid lowering agent. FLP revealed triglycerides 98 , cholesterol 127, LDL 60, HDL 54. 8. DIABETES - He is on accuchecks with sliding scale insulin. Continue current plan of care. 9. ACUTE ON CHRONIC RENAL FAILURE - Will continue to monitor BMP. Risk for perioperative complications was discussed with the patient. Nephrology is following. He did have a CT with contrast on 09/15/16. Creatinine has been stable at 1.9 the past couple of days. 10. PLEURAL EFFUSION - Status post thoracentesis September 15. Patient is being seen by pulmonary. They feel that this is secondary to patient's congestive heart failure due to his aortic stenosis. It has been difficult to diurese him since the creatinine continued to rise. We will continue to monitor this with daily BMP. Nephrology has been consulted to further assist. He underwent right sided chest tube placement by interventional radiology on 09/20 and put out over 1 liter after insertion. He had significant results from this; however, over the weekend, his right pleural catheter came out during the night. We will continue with diuresis. Creatinine 1.9 today. Chest CTA done this morning revealed multiple loculated fluid collections surrounding the right lung as well as a tiny left pleural effusion. If he is to have surgery in the next couple days and this could possibly be drained at that time but surgery is delayed we may have to consider replacing the right pleural catheter. Exam (Progress Note) - Constitutional Vitals: Period Temp Pulse Resp BP Sys/Hurtado Pulse Ox Last 24 Hr 97.3 F-99.2 F 91-98 16-20 111-128/46-71 91-99 Exam: General: Appears chronically ill. HEENT: PERRL, normocephalic, atraumatic. Mucous membranes moist. No jaundice noted. Neck: No JVD/HJR, no thyromegaly or lymphadenopathy noted. Cardiac: Atrial flutter with controlled ventricular rate. Systolic murmur consistent with aortic stenosis. Lungs: Few bibasilar crackles posteriorly. Abdomen: Soft, bowel sounds normoactive. Nontender and nondistended. No abdominal bruit or thrill noted. No masses noted. Extremities: No clubbing, cyanosis noted. 2+ edema noted to BUE/BLE. Upper extremity pulses 2+. Lower extremity pulses 2+. Capillary refill less than 3 seconds. Skin: No unusual lesions or rashes. No skin breakdown appreciated. Neuro: Awake, alert and oriented 3. Moves all extremities well without hemiparesis or paralysis. No essential tremor is appreciated. Result/EKG - Labs CBC & BMP: 09/28/16 04:20 09/28/16 04:20 Lab Results: I have reviewed the past 24 hour labs Labs: Laboratory Results - last 24 hr 09/27/16 09/27/16 09/27/16 12:09 16:41 20:07 WBC RBC Hgb Hct MCV MCH MCHC RDW Plt Count MPV Neut % (Auto) Lymph % (Auto) [place] % (Auto) Eos % (Auto) Baso % (Auto) Neut # (Auto) Lymph # (Auto) [place] # (Auto) Eos # (Auto) Baso # (Auto) Immature Gran % Nucleated RBC % Immature Gran # Nucleated RBCs # Sodium Potassium Chloride Carbon Dioxide Anion Gap BUN Creatinine GFR Calculation BUN/Creatinine Ratio Glucose POC Glucose 224 H 181 H 89 Calculated Osmolality Calcium Magnesium 09/28/16 09/28/16 09/28/16 04:20 04:20 07:55 WBC 9.1 RBC 3.11 L Hgb 9.3 L Hct 28.2 L MCV 90.7 MCH 30 MCHC 33.0 RDW 14.6 Plt Count 139 MPV 9.8 Neut % (Auto) 77.7 H Lymph % (Auto) 8.5 L [place] % (Auto) 11.5 Eos % (Auto) 1.6 Baso % (Auto) 0.2 Neut # (Auto) 7.1 Lymph # (Auto) 0.8 L [place] # (Auto) 1.1 H Eos # (Auto) 0.2 Baso # (Auto) 0.0 Immature Gran % 0.5 Nucleated RBC % 0.0 Immature Gran # 0.05 Nucleated RBCs # 0.00 Sodium 142 Potassium 4.1 Chloride 99 Carbon Dioxide 36 H Anion Gap 11.1 BUN 46 H Creatinine 1.90 H GFR Calculation 34 BUN/Creatinine Ratio 24.00 H Glucose 114 H POC Glucose 100 Calculated Osmolality 295.1 Calcium 8.8 Magnesium 2.8 H - EKG EKG results: interpreted by me (atrial flutter) Quality Measures - Stroke Onset of Symptoms Date: 09/05/16 Onset of Symptoms Time: 15:30 Symptom Onset Unknown: No <Eduardo Flores - Last Filed: 09/28/16 12:52> Exam (Progress Note) - Constitutional Vitals: Period Temp Pulse Resp BP Sys/Hurtado Pulse Ox Last 24 Hr 97.3 F-99.2 F 91-98 16-20 103-128/46-71 91-99 Result/EKG - Labs CBC & BMP: 09/28/16 04:20 09/28/16 04:20 Labs: Laboratory Results - last 24 hr 09/27/16 09/27/16 09/28/16 16:41 20:07 04:20 WBC 9.1 RBC 3.11 L Hgb 9.3 L Hct 28.2 L MCV 90.7 MCH 30 MCHC 33.0 RDW 14.6 Plt Count 139 MPV 9.8 Neut % (Auto) 77.7 H Lymph % (Auto) 8.5 L [place] % (Auto) 11.5 Eos % (Auto) 1.6 Baso % (Auto) 0.2 Neut # (Auto) 7.1 Lymph # (Auto) 0.8 L [place] # (Auto) 1.1 H Eos # (Auto) 0.2 Baso # (Auto) 0.0 Immature Gran % 0.5 Nucleated RBC % 0.0 Immature Gran # 0.05 Nucleated RBCs # 0.00 Sodium Potassium Chloride Carbon Dioxide Anion Gap BUN Creatinine GFR Calculation BUN/Creatinine Ratio Glucose POC Glucose 181 H 89 Calculated Osmolality Calcium Magnesium 09/28/16 09/28/16 09/28/16 04:20 07:55 12:06 WBC RBC Hgb Hct MCV MCH MCHC RDW Plt Count MPV Neut % (Auto) Lymph % (Auto) [place] % (Auto) Eos % (Auto) Baso % (Auto) Neut # (Auto) Lymph # (Auto) [place] # (Auto) Eos # (Auto) Baso # (Auto) Immature Gran % Nucleated RBC % Immature Gran # Nucleated RBCs # Sodium 142 Potassium 4.1 Chloride 99 Carbon Dioxide 36 H Anion Gap 11.1 BUN 46 H Creatinine 1.90 H GFR Calculation 34 BUN/Creatinine Ratio 24.00 H Glucose 114 H POC Glucose 100 140 H Calculated Osmolality 295.1 Calcium 8.8 Magnesium 2.8 H
--- NOTE | 2016-09-28 13:58 | Nephrology Progress Note ---
Nephrology - PN: Subj Interval history: Mr. Frazier is seen in follow-up of his renal impairment. His creatinine is stable at 1.[address] angiogram. He feels well and is sitting at the bedside eating. Surgery is scheduled for 10-02. Chest is clear. Exam (PN)-Nephrology - Vital Signs Vital signs: Period Temp Pulse Resp BP Sys/[place] Pulse Ox Last 24 Hr 97.3 F-99.2 F 91-98 16-20 103-128/46-71 91-99 - Lab 09/28/16 04:20 09/28/16 04:20 Most recent lab results ABG pH 7.465 (7.35-7.45) H 09/14/16 06:00 ABG pCO2 28.8 MM HG (35-48) L 09/14/16 06:00 ABG pO2 64.1 MM HG (80-95) L 09/14/16 06:00 ABG HCO3 20.3 MMOL/L (20-26) 09/14/16 06:00 ABG O2 Saturation 93.0 % (95-100) L 09/14/16 06:00 Calcium 8.8 MG/DL (8.5-10.1) 09/28/16 04:20 Magnesium 2.8 MG/DL (1.8-2.4) H 09/28/16 04:20
[2016-09-28] MEDS: ATORVASTATIN 80 MG TABLET PO SCH (21:19)
[2016-09-29] MEDS: IPRATROPIUM 500 MCG/2.5 ML NEB RESP TX SCH ×4 (01:05→20:25)
[2016-09-29 04:22] LABS: Potassium 3.2 MMOL/L (3.5-5.1)
[2016-09-29] MEDS ORDERED: DEXTROSE 50% 25 GM/50 ML VIAL IV PRN (06:24)
[2016-09-29] MEDS ORDERED: GLUCAGON 1 MG VIAL IM PRN (06:24)
--- NOTE | 2016-09-29 06:24 | Cardiothoracic Progress Note ---
Cardiothoracic Subjective Interval history: Patient had a comfortable night. Vital signs are stable. His creatinine is down to 1.7 this morning. We are planning for aortic valve replacement and single-vessel bypass on Sunday. The patient understands and is ready to proceed. Exam (Progress Note) - Constitutional Vitals: Period Temp Pulse Resp BP Sys/[place]ado Pulse Ox Last 24 Hr 98.0 F-98.6 F 81-102 18-22 103-142/48-71 92-99 Result/EKG - Labs CBC & BMP: 09/28/16 04:20 09/29/16 03:41 Labs: Laboratory Results - last 24 hr 09/28/16 09/28/16 09/28/16 07:55 12:06 15:50 Sodium Potassium Chloride Carbon Dioxide Anion Gap BUN Creatinine GFR Calculation BUN/Creatinine Ratio Glucose POC Glucose 100 140 H 236 H Calculated Osmolality Calcium 09/28/16 09/29/16 18:48 03:41 Sodium 143 Potassium 3.2 L Chloride 99 Carbon Dioxide 35 H Anion Gap 12.2 BUN 38 H Creatinine 1.70 H GFR Calculation 39 BUN/Creatinine Ratio 22.00 H Glucose 56 L POC Glucose 250 H Calculated Osmolality 291.0 Calcium 9.0 Quality Measures - Stroke Onset of Symptoms Date: 09/05/16 Onset of Symptoms Time: 15:30 Symptom Onset Unknown: No
[2016-09-29] MEDS: SODIUM CHLORIDE 0.9% 1,000 ML IV SCH (06:47)
[2016-09-29] MEDS: INSULIN LISPRO 100 UNIT/ML SUBCUT SCH ×4 (08:54→20:53)
[2016-09-29] MEDS: NIACIN 500 MG TABLET PO SCH (09:20)
[2016-09-29] MEDS: ACETYLCYSTEINE 600 MG CAPSULE PO SCH (09:20)
[2016-09-29] MEDS: GLIMEPIRIDE 4 MG TABLET PO SCH ×2 (09:20→16:13)
[2016-09-29] MEDS: ASPIRIN EC 81 MG TABLET PO SCH (09:20)
[2016-09-29] MEDS: CARVEDILOL 3.125 MG TABLET PO SCH ×2 (09:20→20:53)
[2016-09-29] MEDS: LORATADINE 10 MG TABLET PO PRN (09:20)
[2016-09-29] MEDS: CITRIC ACID/SODIUM CITRATE 30 ML UDCUP PO SCH ×3 (09:20→20:53)
[2016-09-29] MEDS: FLUTICASONE 50 MCG NASAL SPRAY 16 GM BOTTLE BOTH NARES SCH ×2 (09:21→20:53)
[2016-09-29] MEDS: INSULIN GLARGINE 100 UNIT/ML SUBCUT SCH (09:21)
[2016-09-29] MEDS: PANTOPRAZOLE 40 MG TABLET PO SCH (09:23)
--- NOTE | 2016-09-29 09:32 | Nephrology Progress Note ---
Nephrology - PN: Subj Interval history: Mr. Frazier is seen in his hospital room. He is up in a chair today and feels well and is not complaining of shortness of breath. He has no significant edema his chest is fairly clear. He anticipates aortic valve replacement and coronary artery bypass on Sunday. His serum creatinine today is lower at 1.7. I think he is able to proceed with surgery. Please notify renal net developer contract if needed this weekend. Exam (PN)-Nephrology - Vital Signs Vital signs: Period Temp Pulse Resp BP Sys/H[place]ado Pulse Ox Last 24 Hr 98.0 F-98.6 F 69-102 18-22 103-142/48-71 94-99 - Lab 09/28/16 04:20 09/29/16 03:41 Most recent lab results ABG pH 7.465 (7.35-7.45) H 09/14/16 06:00 ABG pCO2 28.8 MM HG (35-48) L 09/14/16 06:00 ABG pO2 64.1 MM HG (80-95) L 09/14/16 06:00 ABG HCO3 20.3 MMOL/L (20-26) 09/14/16 06:00 ABG O2 Saturation 93.0 % (95-100) L 09/14/16 06:00 Calcium 9.0 MG/DL (8.5-10.1) 09/29/16 03:41 Magnesium 2.8 MG/DL (1.8-2.4) H 09/28/16 04:20
--- NOTE | 2016-09-29 09:43 | Pulmonology Progress Note ---
Pulmonary - PN: Subj Interval history: This 86-year-old white male has congestive heart failure due to aortic stenosis. Also has atherosclerotic heart disease with previous coronary bypass surgery. Needs to have his IV aortic valve replaced. He has a right pleural effusion. His chest x-ray looks a little bit better today as far as the pulmonary edema is concerned. However we gave him Lasix yesterday and his creatinine has risen a little more. I think we would do best to get the right pleural fluid drained in preparation for surgery. Will ask interventional radiology to do this since it appears to be loculated laterally and would be safely done with ultrasound guidance. Patient is not sleeping well. Should tolerate some Ativan at bedtime. Quite anxious. I should note that the reason he has pleural fluid on the right and not the left is that he has had a previous left decortication. 09/18/2016 we have tried to diurese him and it has not been very successful. His creatinine has risen. He had a right thoracentesis with removal of 800 mL of fluid but he had his CT scan yesterday still showed significant right effusion. The pleural fluid is a transudate. Certainly think this is due to congestive heart failure, due to his aortic stenosis. It will be very difficult to treat his heart failure without the valve being replaced. However he is at high risk for surgery given his fragile state and acute kidney injury with Lasix and low cardiac output. Will ask nephrology to see if they can help us with this. Patient at present is about the same as far as her shortness of breath. He is empirically on antibiotics. 09/19/2016 he continues to complain of dyspnea. Primarily says he has trouble breathing through his nose. He is on 2 different nose sprays in his nasal passages appear open on my exam. I think is primarily short of breath related to his congestive heart failure/aortic stenosis. Renal function is a little better. Perhaps getting further out from contrast studies is helping. We do need to try to diurese him further. Nephrology is following as well. 09/20/2016 patient feels a little better sitting up in the chair. However his chest x-ray shows that the right pleural effusion has increased in size. Having a difficult time diuresing him with his creatinine 2.8. Would recommend putting a pleural catheter in the right side to drain this. Hopefully this will help us prep him for possible aortic valve replacement. The pleural effusion is due to congestive heart failure, however they are having a difficult time diuresing him. 09/21/2016 breathing is better since getting the pleural catheter. Chest x-ray today pending. Renal function getting a little better. Hopefully can plan aortic valve surgery soon. 09/22/2016 patient feels a little better. Should be able to tolerate nasal biprong's now. Chest x-ray shows the right pleural effusion has been evacuated. Put out about 200 mL from chest tube since yesterday morning. Need to keep it in for now. Renal function reports are pending from this morning. He does appear to be holding his own layer. Still has some peripheral edema and we need to bump with Lasix again. In my opinion he will need to have aortic valve surgery in order to get back to any meaningful life at home. Otherwise he will be a bed to chair existence. Certainly some risk involved as far as postoperative renal function and/or respiratory failure, but I favor proceeding with surgery next week. 09/23/2016 put out another 400 mL from his chest tube yesterday. Still has peripheral edema. We need to diurese him further. Renal insufficiency makes it difficult. Dr. Mehta wants to do a CT angiogram to further evaluate his aortic arch. His creatinine is down to 2.3. I feel sure further contrast would bump his creatinine up above 3 again and perhaps worse. I do think he would be better off having surgery then not having surgery. I do not think he can go home and come back as he still has a pleural catheter in. We may consider doing a pleurodesis, which is unusual for a transudative type effusion , and only works about half the time in this situation. 09/24/2016 his right pleural catheter came out during the night. Chest x-ray this morning shows the right lung well expanded. He does have some interstitial edema and some interstitial scarring. Creatinine has come down further to 2.1. We need to try to diurese him further. Would not replace the pleural catheter at this point. 09/25/2016 patient needs to be more active. Creatinine is come down to 1.9. Plans are for a CT angiogram of the chest tomorrow. Will need to watch renal function closely after that. Since the CT is planned I will not order chest x- ray 09/26/2016 CT angiogram was canceled because creatinine was up to 2.1. Defer to nephrology, cardiovascular surgery, and radiology on plans there. His chest x- ray shows recurrence of right pleural effusion. Not as much as before but still there. We are trying to diurese him as much as his kidneys will allow. He still has peripheral edema. 09/27/[address]ogram today. Dr. Mehta to review to decide about surgery. Creatinine was 1.9 this morning. Patient had episode of increased dyspnea last night. Did get better with 1 mg of morphine. If he is to have surgery in the next couple of days, then the right pleural fluid could be drained at that time. If surgery is delayed for several days to follow renal function, then he should have the right pleural catheter replaced. 09/28/2016 patient feels better today. Sleeping better. Less dyspneic. Chest CT angiogram done yesterday and creatinine remains 1.9. Dr. Mehta to review the CT and make plans as far as surgery is concerned. Patient is anxious to go ahead with the surgery. 09/29/2016 patient sleeping in recliner. Dyspnea is improved. Renal function has improved with creatinine 1.7. Plans are for surgery Sunday with coronary bypass surgery of one vessel and aortic valve replacement. Pleural drainage will take care of the right effusion at that time. Stable from pulmonary standpoint. Please call pulmonary retort feeder ground bone this weekend if needed. Exam (Progress Note) - Constitutional Vitals: Period Temp Pulse Resp BP Sys/Hurtado Pulse Ox Last 24 Hr 98.0 F-98.6 F 69-102 18-22 103-142/48-71 94-99 Exam: Patient's alert, comfortable flat in bed. Vital signs normal. Wearing nasal oxygen. Pupils react to light. Throat clear. Neck supple no bruits. Chest shows a few basilar crackles at the right base. Dullness at right base to percussion. Heart normal rate rhythm grade 2/6 systolic murmur at right base. Abdomen soft nontender no masses. Bowel sounds present. Extremities no clubbing or cyanosis. 1+ edema. Calves nontender. Results - Labs CBC & BMP: 09/28/16 04:20 09/29/16 03:41 Lab Results: I have reviewed the past 24 hour labs Assessment and Plan (1) Syncope Status: Acute Assessment and plan: Syncope likely due to cardiac causes related to his aortic stenosis. 09/15/16 likely due to his aortic stenosis. 09/18/2016 again the syncope is likely due to his aortic stenosis. 09/20/2016 no symptoms of postural syncope at this time Current Visit: Yes (2) Chronic kidney disease Status: Chronic Assessment and plan: Creatinine is 2.1. He has had some renal insufficiency for quite some time related to vascular disease and diabetes. At present I think he is ahead on fluid. I will bump him with Lasix. 09/15/16 creatinine up to 2.3 after a dose of Lasix. Afraid to diurese any more vigorously at present. Asking interventional radiology to drain the loculated right effusion. This should help getting prepped for aortic valve replacement. 09/18/2016 creatinine up to 2.8. Difficulty mobilizing right pleural effusion fluid 09/19/2016 renal function is a little better today. Creatinine down to 2.4. May have had a bump in creatinine related to his contrast last week. 09/20/2016 creatinine up to 2.8. 09/21/2016 creatinine down to 2.5. Improving. Hopefully getting further out from contrast 09/22/2016 chemistries pending today. Hopefully can get creatinine back down to around 2. 09/23/2016 creatinine down to 2.3. This despite giving diuretics. 09/24/2016 creatinine down to 2.1. 09/25/2016 creatinine down to 1.9. This is about baseline for him. 09/26/2016 creatinine 2.1 today. Nephrology following. 09/27/2016 renal function about baseline for him at 1.9 creatinine. Likely will see a rise over the next couple of days due to the contrast today. 09/28/2016 creatinine 1.9 and appear stable despite getting repeat contrast yesterday 09/29/2016 creatinine down to 1.7 despite contrast and diuretics. Current Visit: Yes (3) Coronary artery disease Status: Chronic Assessment and plan: Previous coronary bypass surgery with additional findings at catheterization this admission. 09/25/2016 patient not having any active angina. 09/28/2016 previous coronary bypass surgery. 09/29/1969 will have 1 of coronary bypass is redone. Current Visit: Yes Qualifiers: Coronary Disease-Associated Artery/Lesion type: [place] artery [place] vs. transplanted heart: crow heart Associated angina: without angina Qualified Code(s): I25.10 - Atherosclerotic heart disease of [place] coronary artery without angina pectoris (4) Pulmonary hypertension Status: Chronic Assessment and plan: This was not quantified on the echo but is likely to be secondary to his left heart disease with aortic stenosis. 09/15/16 this should be due to his aortic stenosis and congestive heart failure. 09/18/2016 secondary to his left heart disease. 09/20/2016 this is due to his left heart disease. 09/21/2016 due to left heart disease. 09/22/2016 this is secondary to his left heart disease, primarily aortic stenosis 09/23/2016 this is secondary to his aortic stenosis. 09/24/2016 secondary to left heart disease. 09/27/2016 again this is felt to be secondary to his left heart disease primarily aortic stenosis 09/28/2016 apparently due to left heart disease/aortic stenosis 09/29/2016 again this is due to left heart disease. Current Visit: Yes (5) Severe aortic stenosis Status: Chronic Assessment and plan: Has severe aortic stenosis by echo and catheterization. Likely the possible cause of his congestive heart failure and pulmonary hypertension. 09/15/16 hopefully can have surgery when we get him tuned up. 09/18/2016 will need surgery if he can tolerate it. 09/19/2016 hopefully we can get him tuned up where he can tolerate AVR. 09/20/2016 aortic valve surgery is indicated when we can get him tuned up for it. 09/21/2016 need surgery. Trying to get him tuned up for that. If renal function is stable and right pleural effusion totally evacuated, then hopefully could plan sign. 09/22/2016 x-ray is better. Less dyspnea. If renal function is stable, I would be in favor of proceeding with surgery next week. 09/23/16 ideally should be repaired surgically or replaced. He has some chronic bronchitis but does not have severe COPD. 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 09/24/2016 again trying to tune him up so he can have his aortic valve replaced or repaired. 09/25/2016 trying to get him to the point where he can have his aortic valve replaced or repaired. Needs more physical activity. 09/26/2016 continuing to try to get him where he can tolerate aortic valve surgery. 09/27/[address] done this morning for Dr. Mehta to review. 09/28/[address] Dr[address] Mehta to review CT and decide whether to proceed with aortic valve replacement or repair 09/29/2016 this has become severe and is causing congestive heart failure. Has well-maintained LV ejection fraction. Set up for surgery Sunday to replace the valve Current Visit: Yes (6) Diabetes mellitus Status: Chronic Assessment and plan: Has some hyperglycemia. Adding sliding scale. 09/15/16 glucoses in the 140-200 range. 09/18/2016 glucoses look okay. 09/19/2016 glucoses are fairly well controlled. 09/20/2016 glucoses look better. 09/21/2016 still mildly elevated glucoses. 09/22/2016 glucoses fairly well controlled. 09/23/2016 blood sugars are okay. 09/24/2016 glucoses are a little high. Adjust insulin, increase Lantus to 15 units. 09/25/2016 glucoses a little better. 09/26/2016 blood sugars are acceptable. 09/27/2016 blood sugars running in the 85-90 range. 09/28/2016 glucoses well controlled. 09/29/2016 blood sugars fairly well controlled. Current Visit: Yes Qualifiers: Diabetes mellitus type: type 2 (7) Acute bronchitis Status: Resolved Assessment and plan: Based on the change in sputum color and elevated white count 16,000 think is reasonable to cover him with antibiotics for this. Will use Atrovent for bronchodilators. 09/15/16 empirically on antibiotics and Atrovent. I think his main problem respiratory escobar is congestive heart failure related to his aortic stenosis. Would not delay surgery for bronchitis in this situation 09/18/2016 on empiric antibiotics. 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 It is sensitive to Cipro. I will change him to oral Cipro. 09/20/2016 I do not hear any rhonchi. He is on oral Cipro. 09/21/2016 bronchitis is improved. Probably needs a couple more days of Cipro. 09/22/2016 he has had a week's worth of antibiotics. Bronchitis is quiet now. We will stop Cipro. 09/23/2016 he has completed antibiotics. 09/25/2016 he is not coughing at present. Current Visit: Yes
[2016-09-29] MEDS: CHLORHEXIDINE 0.12% ORAL RINSE 60 ML BOTTLE SWISH/SPIT SCH ×2 (10:17→20:53)
--- NOTE | 2016-09-29 12:24 | Cardiology Progress Note ---
<HsuNegroRosie E - Last Filed: 09/29/16 12:21> Assessment and Plan - Time spent with patient Time spent with patient: Less than 30 minutes (1) Severe aortic stenosis Status: Chronic Assessment and plan: SEE PLAN OF CARE LISTED BELOW. Current Visit: Yes (2) Syncope Status: Acute Assessment and plan: SEE PLAN OF CARE LISTED BELOW Current Visit: Yes (3) Atrial flutter by electrocardiogram Status: Acute Assessment and plan: SEE PLAN OF CARE LISTED BELOW Current Visit: Yes (4) Bradycardia Status: Resolved Assessment and plan: SEE PLAN OF CARE LISTED BELOW Current Visit: Yes (5) Coronary artery disease Status: Chronic Assessment and plan: SEE PLAN OF CARE LISTED BELOW Current Visit: Yes Qualifiers: Coronary Disease-Associated Artery/Lesion type: [place] artery [place] vs. transplanted heart: [place] heart Associated angina: without angina Qualified Code(s): I25.10 - Atherosclerotic heart disease of [place] coronary artery without angina pectoris (6) Hypertension Status: Chronic Assessment and plan: SEE PLAN OF CARE LISTED BELOW Current Visit: Yes (7) Hyperlipidemia Status: Chronic Assessment and plan: SEE PLAN OF CARE LISTED BELOW Current Visit: Yes (8) Diabetes mellitus Status: Chronic Assessment and plan: SEE PLAN OF CARE LISTED BELOW Current Visit: Yes Qualifiers: Diabetes mellitus type: type 2 (9) Acute on chronic renal failure Status: Acute Assessment and plan: SEE PLAN OF CARE LISTED BELOW Current Visit: Yes (10) Leukocytosis Status: Resolved Assessment and plan: SEE PLAN OF CARE LISTED BELOW Current Visit: Yes (11) Epistaxis Status: Resolved Assessment and plan: SEE PLAN OF CARE LISTED BELOW Current Visit: Yes (12) Pleural effusion Status: Acute Assessment and plan: SEE PLAN OF CARE LISTED BELOW. Current Visit: Yes Cardiology - PN: Subj Interval history: INVOICING SPECIALIST: DR. ALEXANDER Mr. Frazier is a 86 year old male with a history of coronary artery disease, hypertension, hyperlipidemia, type 2 diabetes mellitus, chronic kidney disease. He is status post coronary artery bypass grafting August 06 2001 with SINGH to the LAD and vein graft to the circumflex marginal and right coronary arteries. He is status post right carotid endarterectomy July 03, 2002. He was admitted to the hospital after an episode of syncope and prolonged weakness. He was initially in atrial flutter, bradycardia, junctional rhythm, no atrial flutter, with normal conduction. He was on no zackery blocking agents. An echocardiogram was performed with showed severe aortic stenosis with preserved ejection fraction. He had some trivial troponin elevation in the setting of an elevated creatinine. Urine toxicology was negative. 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 Mr. Frazier has had trouble with dyspnea and decreased O2 saturations past couple of days. Pulmonology has seen him in consultation and due to a right pleural effusion, he underwent ultrasound-guided thoracentesis September 15 where he was drained of 800 cc of straw-colored, blood-tinged fluid. He has been seen by CV surgery and underwent chest CTA on 09/27/16 for further evaluation of the position of his SINGH bypass graft. He is sitting up in the chair upon exam today and reports he feels better. His lower extremity edema is stable. ASSESSMENT/PLAN: 1. SEVERE AORTIC STENOSIS - Dr. Mehta has been consulted and tentatively plans perform AVR next week. Echocardiogram showed severe aortic stenosis and cardiac catheterization root revealed patency of an internal mammary graft and circumflex graft although the circumflex graft has an ostial stenosis. The right coronary graft is occluded but the [place] right coronary does not have significant obstructive lesions. The procedure is made somewhat more risky by his age, renal dysfunction, and presence of a patent internal mammary graft. This was further evaluated with CTA on 09/27/16. He has some peripheral edema and continues to have bibasilar rales posteriorly. We will continue supportive care with diuresis. He is tentatively scheduled for AVR/redo CABG with Dr. Mehta on Sunday. 2. SYNCOPE - Carotid doppler ultrasound reveals right ICA with 50-69% stenosis. CT of the brain was negative. This could have been related to bradycardia or his aortic stenosis. Neurology has seen him in consultation and does not feel he has suffered a TIA at this time. 3. ATRIAL FLUTTER - CHADSVASC 5. Anticoagulation has been held pending surgery next week. He has been started on a beta demarco and has tolerated this well. 4. BRADYCARDIA - Resolved. Will continue to monitor. 5. CORONARY ARTERY DISEASE - He is status post coronary artery bypass grafting August 06 2001 with SINGH to the LAD and vein graft to the circumflex marginal and right coronary arteries. Cardiac catheterization on 09/13/2016 revealed severe [place] three-vessel and ostial left main coronary artery disease with 2 of 3 bypass grafts patent. There is an ostial pinch in the saphenous vein graft to the obtuse marginal branch. The right coronary artery graft is occluded but the right coronary artery does not have any significant high-grade disease at this time. 6. HYPERTENSION -this is currently well controlled on the current therapy. Will continue to monitor and adjust accordingly. Medication changes were made and he is now on Coreg and hydralazine. 7. HYPERLIPIDEMIA - Continue lipid lowering agent. FLP revealed triglycerides 98 , cholesterol 127, LDL 60, HDL 54. 8. DIABETES - He is on accuchecks with sliding scale insulin. Continue current plan of care. 9. ACUTE ON CHRONIC RENAL FAILURE - Will continue to monitor BMP. Risk for perioperative complications was discussed with the patient. Nephrology is following. He did have a CT with contrast on 09/15/16. Creatinine has been stable , down to 1.7 today. 10. PLEURAL EFFUSION - Status post thoracentesis September 15. Patient is being seen by pulmonary. They feel that this is secondary to patient's congestive heart failure due to his aortic stenosis. It has been difficult to diurese him since the creatinine continued to rise. We will continue to monitor this with daily BMP. Nephrology has been consulted to further assist. He underwent right sided chest tube placement by interventional radiology on 09/20 and put out over 1 liter after insertion. He had significant results from this; however, over the weekend, his right pleural catheter came out during the night. We will continue with diuresis. Creatinine 1.9 today. Chest CTA done 09/28 revealed multiple loculated fluid collections surrounding the right lung as well as a tiny left pleural effusion. Pleural drainage will take care of the right effusion at the time of surgery. Exam (Progress Note) - Constitutional Vitals: Period Temp Pulse Resp BP Sys/Hurtado Pulse Ox Last 24 Hr 98.0 F-98.6 F 69-102 18-22 113-142/57-71 94-98 Exam: General: Appears chronically ill. HEENT: PERRL, normocephalic, atraumatic. Mucous membranes moist. No jaundice noted. Neck: No JVD/HJR, no thyromegaly or lymphadenopathy noted. Cardiac: Atrial flutter with controlled ventricular rate. Systolic murmur consistent with aortic stenosis. Lungs: Few bibasilar crackles posteriorly. Abdomen: Soft, bowel sounds normoactive. Nontender and nondistended. No abdominal bruit or thrill noted. No masses noted. Extremities: No clubbing, cyanosis noted. 2+ edema noted to BUE/BLE. Upper extremity pulses 2+. Lower extremity pulses 2+. Capillary refill less than 3 seconds. Back: No vertebral tenderness, normal inspection. Skin: No unusual lesions or rashes. No skin breakdown appreciated. Neuro: Awake, alert and oriented 3. Moves all extremities well without hemiparesis or paralysis. No essential tremor is appreciated. Result/EKG - Labs CBC & BMP: 09/28/16 04:20 09/29/16 03:41 Lab Results: I have reviewed the past 24 hour labs Labs: Laboratory Results - last 24 hr 09/28/16 09/28/16 09/29/16 15:50 18:48 03:41 Sodium 143 Potassium 3.2 L Chloride 99 Carbon Dioxide 35 H Anion Gap 12.2 BUN 38 H Creatinine 1.70 H GFR Calculation 39 BUN/Creatinine Ratio 22.00 H Glucose 56 L POC Glucose 236 H 250 H Calculated Osmolality 291.0 Calcium 9.0 09/29/16 09/29/16 09/29/16 07:35 09:01 11:49 Sodium Potassium Chloride Carbon Dioxide Anion Gap BUN Creatinine GFR Calculation BUN/Creatinine Ratio Glucose POC Glucose 63 L 290 H 360 H Calculated Osmolality Calcium - EKG EKG results: interpreted by me (atrial flutter) Quality Measures - VTE Contraindication to Pharmacological VTE Prophylaxis: High Risk of Bleeding - Stroke Onset of Symptoms Date: 09/05/16 Onset of Symptoms Time: 15:30 Symptom Onset Unknown: No <Eduardo Flores - Last Filed: 09/29/16 17:36> Exam (Progress Note) - Constitutional Vitals: Period Temp Pulse Resp BP Sys/Hurtado Pulse Ox Last 24 Hr 97.9 F-98.6 F 69-94 18-22 122-142/56-71 93-98 Result/EKG - Labs CBC & BMP: 09/28/16 04:20 09/29/16 03:41 Labs: Laboratory Results - last 24 hr 09/28/16 09/29/16 09/29/16 18:48 03:41 07:35 Sodium 143 Potassium 3.2 L Chloride 99 Carbon Dioxide 35 H Anion Gap 12.2 BUN 38 H Creatinine 1.70 H GFR Calculation 39 BUN/Creatinine Ratio 22.00 H Glucose 56 L POC Glucose 250 H 63 L Calculated Osmolality 291.0 Calcium 9.0 09/29/16 09/29/16 09/29/16 09:01 11:49 16:02 Sodium Potassium Chloride Carbon Dioxide Anion Gap BUN Creatinine GFR Calculation BUN/Creatinine Ratio Glucose POC Glucose 290 H 360 H 162 H Calculated Osmolality Calcium
[2016-09-29] MEDS: POTASSIUM CHLORIDE 20 MEQ TABLET PO SCH ×2 (12:37→18:10)
[2016-09-29] MEDS: ATORVASTATIN 80 MG TABLET PO SCH (20:53)
[2016-09-30] MEDS: IPRATROPIUM 500 MCG/2.5 ML NEB RESP TX SCH ×4 (00:44→19:12)
[2016-09-30 03:45] LABS: ABG Base Excess 9.6 MMOL/L (-2.5-2.5); ABG HCO3 33.3 MMOL/L (20-26); ABG Oxygen Saturation 94.5 % (95-100); ABG PCO2 37.4 MM HG (35-48); ABG PO2 63.8 MM HG (80-95); Allen Test Positive
[2016-09-30 05:09] LABS: Basophils % 0.3 % (0.0-0.8); Eosinophils # 0.3 10*3/uL (0.0-0.87); Eosinophils % 3.1 % (0.00-10.9); Hemoglobin 9.8 GM/DL (14.0-18.0); Immature Granulocytes % 0.8 %; Immature Granulocytes Absolute 0.07 #; Lymphocytes # 0.9 10*3/uL (1.4-4.0); Lymphocytes % 10.6 % (21.2-54.2); Mean Corpuscular HGB Conc 33.8 GM/DL (32-36); Mean Corpuscular Hemoglobin 31 PG (27-34); Mean Corpuscular Volume 90.6 FL (87-102); Mean Platelet Volume 10.4 FL (9.6-12.0); Monocytes % 11.5 % (1.7-12.7); Neutrophils # 6.4 10*3/uL (1.4-7.4); Neutrophils % 73.7 % (38.7-73.9); Platelet Count 128 T/CUMM (130-400); Red Cell Distribution Width 14.6 % (9.3-17.3); White Blood Count 8.7 T/CUMM (4-12)
[2016-09-30] MEDS: SODIUM CHLORIDE 0.9% 1,000 ML IV SCH (05:41)
[2016-09-30 05:50] LABS: Albumin 2.8 G/DL (3.4-5.0); Bilirubin,Total 1.4 MG/DL (0.2-1.0); Calcium 8.4 MG/DL (8.5-10.1); Osmolality,Calculated 291.4 MOS/KG (273-304); Potassium 3.6 MMOL/L (3.5-5.1); Total Protein 6.2 G/DL (6.4-8.3)
[2016-09-30] MEDS: INSULIN LISPRO 100 UNIT/ML SUBCUT SCH ×4 (08:32→21:16)
[2016-09-30] MEDS: INSULIN GLARGINE 100 UNIT/ML SUBCUT SCH (08:38)
[2016-09-30] MEDS: DOCUSATE SODIUM 100 MG CAPSULE PO PRN (08:39)
[2016-09-30] MEDS: PANTOPRAZOLE 40 MG TABLET PO SCH (08:39)
[2016-09-30] MEDS: NIACIN 500 MG TABLET PO SCH (08:39)
[2016-09-30] MEDS: ASPIRIN EC 81 MG TABLET PO SCH (08:39)
[2016-09-30] MEDS: CHLORHEXIDINE 0.12% ORAL RINSE 60 ML BOTTLE SWISH/SPIT SCH ×2 (08:39→21:16)
[2016-09-30] MEDS: GLIMEPIRIDE 4 MG TABLET PO SCH ×2 (08:39→16:49)
[2016-09-30] MEDS: CARVEDILOL 3.125 MG TABLET PO SCH ×2 (08:39→21:15)
[2016-09-30] MEDS: CITRIC ACID/SODIUM CITRATE 30 ML UDCUP PO SCH ×3 (08:40→21:15)
[2016-09-30] MEDS: FLUTICASONE 50 MCG NASAL SPRAY 16 GM BOTTLE BOTH NARES SCH ×2 (08:40→21:15)
--- NOTE | 2016-09-30 08:47 | Cardiothoracic Progress Note ---
Cardiothoracic Subjective Interval history: Ready for surgery Sunday morning. Exam (Progress Note) - Constitutional Vitals: Period Temp Pulse Resp BP Sys/Hurtado Pulse Ox Last 24 Hr 97.6 F-99.2 F 69-88 18-22 122-140/56-69 93-99 Result/EKG - Labs CBC & BMP: 09/30/16 03:58 09/30/16 03:58 Labs: Laboratory Results - last 24 hr 09/29/16 09/29/16 09/29/16 09:01 11:49 16:02 WBC RBC Hgb Hct MCV MCH MCHC RDW Plt Count MPV Neut % (Auto) Lymph % (Auto) [place] % (Auto) Eos % (Auto) Baso % (Auto) Neut # (Auto) Lymph # (Auto) [place] # (Auto) Eos # (Auto) Baso # (Auto) Immature Gran % Nucleated RBC % Immature Gran # Nucleated RBCs # ABG pH ABG pCO2 ABG pO2 ABG HCO3 ABG Total CO2 ABG O2 Saturation ABG Base Excess FiO2 Sodium Potassium Chloride Carbon Dioxide Anion Gap BUN Creatinine GFR Calculation BUN/Creatinine Ratio Glucose POC Glucose 290 H 360 H 162 H Calculated Osmolality Calcium Total Bilirubin AST ALT Alkaline Phosphatase Total Protein Albumin Globulin Albumin/Globulin Ratio 09/29/16 09/30/16 09/30/16 20:53 03:33 03:58 WBC 8.7 RBC 3.20 L Hgb 9.8 L Hct 29.0 L MCV 90.6 MCH 31 MCHC 33.8 RDW 14.6 Plt Count 128 L MPV 10.4 Neut % (Auto) 73.7 Lymph % (Auto) 10.6 L [place] % (Auto) 11.5 Eos % (Auto) 3.1 Baso % (Auto) 0.3 Neut # (Auto) 6.4 Lymph # (Auto) 0.9 L [place] # (Auto) 1.0 H Eos # (Auto) 0.3 Baso # (Auto) 0.0 Immature Gran % 0.8 Nucleated RBC % 0.0 Immature Gran # 0.07 Nucleated RBCs # 0.00 ABG pH 7.550 H ABG pCO2 37.4 ABG pO2 63.8 L ABG HCO3 33.3 H ABG Total CO2 30.0 H ABG O2 Saturation 94.5 L ABG Base Excess 9.6 H FiO2 32.00 Sodium Potassium Chloride Carbon Dioxide Anion Gap BUN Creatinine GFR Calculation BUN/Creatinine Ratio Glucose POC Glucose 240 H Calculated Osmolality Calcium Total Bilirubin AST ALT Alkaline Phosphatase Total Protein Albumin Globulin Albumin/Globulin Ratio 09/30/16 09/30/16 03:58 07:53 WBC RBC Hgb Hct MCV MCH MCHC RDW Plt Count MPV Neut % (Auto) Lymph % (Auto) [place] % (Auto) Eos % (Auto) Baso % (Auto) Neut # (Auto) Lymph # (Auto) [place] # (Auto) Eos # (Auto) Baso # (Auto) Immature Gran % Nucleated RBC % Immature Gran # Nucleated RBCs # ABG pH ABG pCO2 ABG pO2 ABG HCO3 ABG Total CO2 ABG O2 Saturation ABG Base Excess FiO2 Sodium 140 Potassium 3.6 Chloride 99 Carbon Dioxide 32 Anion Gap 12.6 BUN 40 H Creatinine 1.70 H GFR Calculation 39 BUN/Creatinine Ratio 23.00 H Glucose 147 H POC Glucose 144 H Calculated Osmolality 291.4 Calcium 8.4 L Total Bilirubin 1.40 H AST 44 H ALT 31 Alkaline Phosphatase 85 Total Protein 6.2 L Albumin 2.8 L Globulin 3.4 Albumin/Globulin Ratio 0.8 L Quality Measures - VTE Contraindication to Pharmacological VTE Prophylaxis: High Risk of Bleeding - Stroke Onset of Symptoms Date: 09/05/16 Onset of Symptoms Time: 15:30 Symptom Onset Unknown: No
[2016-09-30] MEDS: ATORVASTATIN 80 MG TABLET PO SCH (21:15)
[2016-10-01] MEDS: IPRATROPIUM 500 MCG/2.5 ML NEB RESP TX SCH ×4 (01:03→20:04)
[2016-10-01 05:05] LABS: Basophils % 0.2 % (0.0-0.8); Eosinophils # 0.3 10*3/uL (0.0-0.87); Eosinophils % 3.5 % (0.00-10.9); Hematocrit 28.8 VOL% (42.0-52.0); Hemoglobin 9.4 GM/DL (14.0-18.0); Immature Granulocytes % 0.6 %; Immature Granulocytes Absolute 0.05 #; Lymphocytes # 0.8 10*3/uL (1.4-4.0); Lymphocytes % 9.1 % (21.2-54.2); Mean Corpuscular HGB Conc 32.6 GM/DL (32-36); Mean Corpuscular Hemoglobin 30 PG (27-34); Mean Platelet Volume 10.6 FL (9.6-12.0); Monocytes # 0.9 10*3/uL (0.11-0.8); Monocytes % 10.2 % (1.7-12.7); Neutrophils # 6.4 10*3/uL (1.4-7.4); Neutrophils % 76.4 % (38.7-73.9); Platelet Count 115 T/CUMM (130-400); Red Blood Count 3.13 MC/CUMM (3.8-5.5); White Blood Count 8.4 T/CUMM (4-12)
[2016-10-01] MEDS: SODIUM CHLORIDE 0.9% 1,000 ML IV SCH (05:34)
[2016-10-01 05:53] LABS: Calcium 9.1 MG/DL (8.5-10.1); Magnesium 2.6 MG/DL (1.8-2.4); Potassium 3.8 MMOL/L (3.5-5.1)
[2016-10-01] MEDS ORDERED: CEFUROXIME INJ 1,500 MG in SODIUM CHLORIDE 0.9% 100 ML IV ONE (06:24)
--- NOTE | 2016-10-01 08:11 | Cardiothoracic Progress Note ---
Cardiothoracic Subjective Interval history: Patient is ready for aortic valve replacement and coronary bypass in the morning. His creatinine today is 1.6 which is about as low as it has been during this hospitalization. Exam (Progress Note) - Constitutional Vitals: Period Temp Pulse Resp BP Sys/Hurtado Pulse Ox Last 24 Hr 97 F-97.9 F 71-93 16-22 110-143/54-66 89-99 Result/EKG - Labs CBC & BMP: 10/01/16 03:42 10/01/16 03:42 Labs: Laboratory Results - last 24 hr 09/30/16 09/30/16 09/30/16 11:19 15:48 21:16 WBC RBC Hgb Hct MCV MCH MCHC RDW Plt Count MPV Neut % (Auto) Lymph % (Auto) [place] % (Auto) Eos % (Auto) Baso % (Auto) Neut # (Auto) Lymph # (Auto) [place] # (Auto) Eos # (Auto) Baso # (Auto) Immature Gran % Nucleated RBC % Immature Gran # Nucleated RBCs # Sodium Potassium Chloride Carbon Dioxide Anion Gap BUN Creatinine GFR Calculation BUN/Creatinine Ratio Glucose POC Glucose 266 H 258 H 151 H Calculated Osmolality Calcium Magnesium Blood Type Antibody Screen Crossmatch 10/01/16 10/01/16 10/01/16 03:42 03:42 03:42 WBC 8.4 RBC 3.13 L Hgb 9.4 L Hct 28.8 L MCV 92.0 MCH 30 MCHC 32.6 RDW 15.0 Plt Count 115 L MPV 10.6 Neut % (Auto) 76.4 H Lymph % (Auto) 9.1 L [place] % (Auto) 10.2 Eos % (Auto) 3.5 Baso % (Auto) 0.2 Neut # (Auto) 6.4 Lymph # (Auto) 0.8 L [place] # (Auto) 0.9 H Eos # (Auto) 0.3 Baso # (Auto) 0.0 Immature Gran % 0.6 Nucleated RBC % 0.0 Immature Gran # 0.05 Nucleated RBCs # 0.00 Sodium 143 Potassium 3.8 Chloride 101 Carbon Dioxide 35 H Anion Gap 10.8 BUN 37 H Creatinine 1.60 H GFR Calculation 42 BUN/Creatinine Ratio 23.00 H Glucose 127 H POC Glucose Calculated Osmolality 295.0 Calcium 9.1 Magnesium 2.6 H Blood Type O POSITIVE Antibody Screen Negative Crossmatch See Detail 10/01/16 08:05 WBC RBC Hgb Hct MCV MCH MCHC RDW Plt Count MPV Neut % (Auto) Lymph % (Auto) [place] % (Auto) Eos % (Auto) Baso % (Auto) Neut # (Auto) Lymph # (Auto) [place] # (Auto) Eos # (Auto) Baso # (Auto) Immature Gran % Nucleated RBC % Immature Gran # Nucleated RBCs # Sodium Potassium Chloride Carbon Dioxide Anion Gap BUN Creatinine GFR Calculation BUN/Creatinine Ratio Glucose POC Glucose 105 Calculated Osmolality Calcium Magnesium Blood Type Antibody Screen Crossmatch Quality Measures - VTE Contraindication to Pharmacological VTE Prophylaxis: High Risk of Bleeding - Stroke Onset of Symptoms Date: 09/05/16 Onset of Symptoms Time: 15:30 Symptom Onset Unknown: No
[2016-10-01] MEDS: INSULIN GLARGINE 100 UNIT/ML SUBCUT SCH (09:00)
[2016-10-01] MEDS: LORATADINE 10 MG TABLET PO PRN (09:00)
[2016-10-01] MEDS: DOCUSATE SODIUM 100 MG CAPSULE PO PRN (09:00)
[2016-10-01] MEDS: CARVEDILOL 3.125 MG TABLET PO SCH ×2 (09:00→21:16)
[2016-10-01] MEDS: GLIMEPIRIDE 4 MG TABLET PO SCH ×2 (09:00→16:00)
[2016-10-01] MEDS: PANTOPRAZOLE 40 MG TABLET PO SCH (09:00)
[2016-10-01] MEDS: NIACIN 500 MG TABLET PO SCH (09:00)
[2016-10-01] MEDS: ASPIRIN EC 81 MG TABLET PO SCH (09:01)
[2016-10-01] MEDS: INSULIN LISPRO 100 UNIT/ML SUBCUT SCH ×4 (09:01→21:19)
[2016-10-01] MEDS: CHLORHEXIDINE 0.12% ORAL RINSE 60 ML BOTTLE SWISH/SPIT SCH ×2 (09:02→21:19)
[2016-10-01] MEDS: FLUTICASONE 50 MCG NASAL SPRAY 16 GM BOTTLE BOTH NARES SCH ×2 (09:02→21:18)
[2016-10-01] MEDS: CHLORHEXIDINE 4% SOLN 118 ML BOTTLE TOP SCH ×3 (09:02→21:18)
[2016-10-01] MEDS: CITRIC ACID/SODIUM CITRATE 30 ML UDCUP PO SCH ×3 (10:00→21:18)
--- NOTE | 2016-10-01 10:21 | Cardiology Progress Note ---
Assessment and Plan (1) CAD (coronary artery disease) Status: Acute Assessment and plan: Previous note: Mr. Frazier is a 86 year old male with a history of coronary artery disease, hypertension, hyperlipidemia, type 2 diabetes mellitus, chronic kidney disease. He is status post coronary artery bypass grafting August 06 2001 with SINGH to the LAD and vein graft to the circumflex marginal and right coronary arteries. He is status post right carotid endarterectomy July 03, 2002. He was admitted to the hospital after an episode of syncope and prolonged weakness. He was initially in atrial flutter, bradycardia, junctional rhythm, no atrial flutter, with normal conduction. He was on no zackery blocking agents. An echocardiogram was performed with showed severe aortic stenosis with preserved ejection fraction. He had some trivial troponin elevation in the setting of an elevated creatinine. Urine toxicology was negative. 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 Mr. Frazier has had trouble with dyspnea and decreased O2 saturations past couple of days. Pulmonology has seen him in consultation and due to a right pleural effusion, he underwent ultrasound-guided thoracentesis September 15 where he was drained of 800 cc of straw-colored, blood-tinged fluid. He has been seen by CV surgery and underwent chest CTA on 09/27/16 for further evaluation of the position of his SINGH bypass graft. He is sitting up in the chair upon exam today and reports he feels better. His lower extremity edema is stable. ASSESSMENT/PLAN: 1. SEVERE AORTIC STENOSIS - Dr. Mehta has been consulted and tentatively plans perform AVR next week. Echocardiogram showed severe aortic stenosis and cardiac catheterization root revealed patency of an internal mammary graft and circumflex graft although the circumflex graft has an ostial stenosis. The right coronary graft is occluded but the [place] right coronary does not have significant obstructive lesions. The procedure is made somewhat more risky by his age, renal dysfunction, and presence of a patent internal mammary graft. This was further evaluated with CTA on 09/27/16. He has some peripheral edema and continues to have bibasilar rales posteriorly. We will continue supportive care with diuresis. He is tentatively scheduled for AVR/redo CABG with Dr. Mehta on Sunday. 2. SYNCOPE - Carotid doppler ultrasound reveals right ICA with 50-69% stenosis. CT of the brain was negative. This could have been related to bradycardia or his aortic stenosis. Neurology has seen him in consultation and does not feel he has suffered a TIA at this time. 3. ATRIAL FLUTTER - CHADSVASC 5. Anticoagulation has been held pending surgery next week. He has been started on a beta demarco and has tolerated this well. 4. BRADYCARDIA - Resolved. Will continue to monitor. 5. CORONARY ARTERY DISEASE - He is status post coronary artery bypass grafting August 06 2001 with SINGH to the LAD and vein graft to the circumflex marginal and right coronary arteries. Cardiac catheterization on 09/13/2016 revealed severe [place] three-vessel and ostial left main coronary artery disease with 2 of 3 bypass grafts patent. There is an ostial pinch in the saphenous vein graft to the obtuse marginal branch. The right coronary artery graft is occluded but the right coronary artery does not have any significant high-grade disease at this time. 6. HYPERTENSION -this is currently well controlled on the current therapy. Will continue to monitor and adjust accordingly. Medication changes were made and he is now on Coreg and hydralazine. 7. HYPERLIPIDEMIA - Continue lipid lowering agent. FLP revealed triglycerides 98 , cholesterol 127, LDL 60, HDL 54. 8. DIABETES - He is on accuchecks with sliding scale insulin. Continue current plan of care. 9. ACUTE ON CHRONIC RENAL FAILURE - Will continue to monitor BMP. Risk for perioperative complications was discussed with the patient. Nephrology is following. He did have a CT with contrast on 09/15/16. Creatinine has been stable , down to 1.7 today. 10. PLEURAL EFFUSION - Status post thoracentesis September 15. Patient is being seen by pulmonary. They feel that this is secondary to patient's congestive heart failure due to his aortic stenosis. It has been difficult to diurese him since the creatinine continued to rise. We will continue to monitor this with daily BMP. Nephrology has been consulted to further assist. He underwent right sided chest tube placement by interventional radiology on 09/20 and put out over 1 liter after insertion. He had significant results from this; however, over the weekend, his right pleural catheter came out during the night. We will continue with diuresis. Creatinine 1.9 today. Chest CTA done 09/28 revealed multiple loculated fluid collections surrounding the right lung as well as a tiny left pleural effusion. Pleural drainage will take care of the right effusion at the time of surgery. October 01, 2016: 1. Mr. Frazier is hemodynamically stable resting comfortably in bed 2. CABG/AVR scheduled for the morning 3. CKD is now stable, actually slightly improved 4. No new recommendations prior to surgery per Current Visit: Yes (2) Severe aortic stenosis Status: Chronic Current Visit: Yes Cardiology - PN: Subj Interval history: Mr. Trent is resting comfortably. He has mild wheezing. He has had no complaints this morning. His rhythm is stable. Exam (Progress Note) - Constitutional Vitals: Period Temp Pulse Resp BP Sys/Hurtado Pulse Ox Last 24 Hr 97 F-98 F 71-95 16-22 110-155/54-69 89-100 General appearance: normal weight, no acute distress - Head Head exam: Present: normal inspection, normocephalic, atraumatic - Cardiovascular Cardiovascular exam: Present: regular rate and rhythm, systolic murmur. Absent : bradycardia, diastolic murmur, rubs - GI/Abdominal GI/Abdominal exam: Present: soft. Absent: tenderness - Extremities Exam Extremities exam: Present: edema Result/EKG - Labs CBC & BMP: 10/01/16 03:42 10/01/16 03:42 Labs: Laboratory Results - last 24 hr 09/30/16 09/30/16 09/30/16 11:19 15:48 21:16 WBC RBC Hgb Hct MCV MCH MCHC RDW Plt Count MPV Neut % (Auto) Lymph % (Auto) [place] % (Auto) Eos % (Auto) Baso % (Auto) Neut # (Auto) Lymph # (Auto) [place] # (Auto) Eos # (Auto) Baso # (Auto) Immature Gran % Nucleated RBC % Immature Gran # Nucleated RBCs # Sodium Potassium Chloride Carbon Dioxide Anion Gap BUN Creatinine GFR Calculation BUN/Creatinine Ratio Glucose POC Glucose 266 H 258 H 151 H Calculated Osmolality Calcium Magnesium Blood Type Antibody Screen Crossmatch 10/01/16 10/01/16 10/01/16 03:42 03:42 03:42 WBC 8.4 RBC 3.13 L Hgb 9.4 L Hct 28.8 L MCV 92.0 MCH 30 MCHC 32.6 RDW 15.0 Plt Count 115 L MPV 10.6 Neut % (Auto) 76.4 H Lymph % (Auto) 9.1 L [place] % (Auto) 10.2 Eos % (Auto) 3.5 Baso % (Auto) 0.2 Neut # (Auto) 6.4 Lymph # (Auto) 0.8 L [place] # (Auto) 0.9 H Eos # (Auto) 0.3 Baso # (Auto) 0.0 Immature Gran % 0.6 Nucleated RBC % 0.0 Immature Gran # 0.05 Nucleated RBCs # 0.00 Sodium 143 Potassium 3.8 Chloride 101 Carbon Dioxide 35 H Anion Gap 10.8 BUN 37 H Creatinine 1.60 H GFR Calculation 42 BUN/Creatinine Ratio 23.00 H Glucose 127 H POC Glucose Calculated Osmolality 295.0 Calcium 9.1 Magnesium 2.6 H Blood Type O POSITIVE Antibody Screen Negative Crossmatch See Detail 10/01/16 08:05 WBC RBC Hgb Hct MCV MCH MCHC RDW Plt Count MPV Neut % (Auto) Lymph % (Auto) [place] % (Auto) Eos % (Auto) Baso % (Auto) Neut # (Auto) Lymph # (Auto) [place] # (Auto) Eos # (Auto) Baso # (Auto) Immature Gran % Nucleated RBC % Immature Gran # Nucleated RBCs # Sodium Potassium Chloride Carbon Dioxide Anion Gap BUN Creatinine GFR Calculation BUN/Creatinine Ratio Glucose POC Glucose 105 Calculated Osmolality Calcium Magnesium Blood Type Antibody Screen Crossmatch Quality Measures - VTE Contraindication to Pharmacological VTE Prophylaxis: High Risk of Bleeding - Stroke Onset of Symptoms Date: 09/05/16 Onset of Symptoms Time: 15:30 Symptom Onset Unknown: No
[2016-10-01] MEDS: ATORVASTATIN 80 MG TABLET PO SCH (21:16)
[2016-10-02] MEDS: IPRATROPIUM 500 MCG/2.5 ML NEB RESP TX SCH ×4 (00:52→18:50)
[2016-10-02 04:31] LABS: Basophils % 0.2 % (0.0-0.8); Eosinophils # 0.2 10*3/uL (0.0-0.87); Eosinophils % 2.3 % (0.00-10.9); Hematocrit 28.5 VOL% (42.0-52.0); Hemoglobin 9.1 GM/DL (14.0-18.0); Immature Granulocytes % 0.5 %; Immature Granulocytes Absolute 0.04 #; Lymphocytes # 1.1 10*3/uL (1.4-4.0); Lymphocytes % 12.5 % (21.2-54.2); Mean Corpuscular HGB Conc 31.9 GM/DL (32-36); Mean Corpuscular Hemoglobin 30 PG (27-34); Mean Corpuscular Volume 93.4 FL (87-102); Mean Platelet Volume 10.5 FL (9.6-12.0); Monocytes # 0.7 10*3/uL (0.11-0.8); Monocytes % 8.7 % (1.7-12.7); Neutrophils # 6.5 10*3/uL (1.4-7.4); Neutrophils % 75.8 % (38.7-73.9); Platelet Count 105 T/CUMM (130-400); Red Blood Count 3.05 MC/CUMM (3.8-5.5); Red Cell Distribution Width 15.1 % (9.3-17.3); White Blood Count 8.5 T/CUMM (4-12)
[2016-10-02] MEDS ORDERED: TISSUE ADHESIVE 1 EACH APPLICATOR TOP ONE (04:39)
[2016-10-02] MEDS ORDERED: PAPAVERINE 60 MG/2 ML VIAL ONE (04:39)
[2016-10-02] MEDS ORDERED: VANCOMYCIN 1,000 MG VIAL ONE (04:40)
[2016-10-02 05:11] LABS: Albumin 2.8 G/DL (3.4-5.0); Bilirubin,Total 1.6 MG/DL (0.2-1.0); Calcium 8.8 MG/DL (8.5-10.1); Osmolality,Calculated 296.7 MOS/KG (273-304); Potassium 3.9 MMOL/L (3.5-5.1); Total Protein 5.9 G/DL (6.4-8.3)
[2016-10-02] MEDS ORDERED: LORazepam 1 MG TABLET PO ONE (05:30)
[2016-10-02] MEDS ORDERED: FAMOTIDINE 20 MG/2 ML VIAL IV ONE (05:30)
[2016-10-02] MEDS: CARVEDILOL 3.125 MG TABLET PO SCH ×2 (05:50→10:46)
[2016-10-02] MEDS ORDERED: CEFUROXIME INJ 1,500 MG in SODIUM CHLORIDE 0.9% 100 ML IV ONE (06:00)
[2016-10-02] MEDS ORDERED: ETOMIDATE 20 MG/10 ML VIAL IV ONE (06:45)
[2016-10-02] MEDS ORDERED: MINERAL OIL/PETROLATUM OPH OINT 3.5 GM TUBE ONE (06:45)
[2016-10-02] MEDS ORDERED: VECURONIUM 10 MG VIAL IV ONE (06:45)
[2016-10-02] MEDS ORDERED: PHENYLEPHRINE 1 MG/10 ML SYRINGE IV ONE (06:45)
[2016-10-02] MEDS ORDERED: CALCIUM CHLORIDE 1,000 MG/10 ML SYRINGE IV ONE (06:45)
[2016-10-02] MEDS ORDERED: AMINOPHYLLINE 500 MG/20 ML VIAL IV ONE (06:45)
[2016-10-02] MEDS ORDERED: LIDOCAINE 2% 5 ML VIAL ONE (06:45)
[2016-10-02 07:31] LABS: ABG Base Excess 6.9 MMOL/L (-2.5-2.5); ABG HCO3 30.8 MMOL/L (20-26); ABG PCO2 50.2 MM HG (35-48); ABG PH 7.418 (7.35-7.45); ABG TCO2 30.1 MMOL/L (23-27); Glucose Heart Surgery 113 MG/DL (74-106); Hematocrit Heart Surgery 25.5 PERCENT (42-52); Hemoglobin Heart Surgery 8.2 G/DL (14.0-18.0); Ionized Calcium Arterial 1.14 MMOL/L (1.21-1.46); PCO2 Patient Temp Arterial 50.2 MMHG; PH Patient Temp Arterial 7.418; Patient Temperature 37 CELCIUS; Potassium Heart/CVR 2.9 MMOL/L (3.5-5.1); Sodium Heart/CVR 140 MMOL/L (135-145)
[2016-10-02 07:55] LABS: Apearance,Urine CLEAR (Clear); Bilirubin,Urine Negative (Negative); Blood, Urine Negative (Negative); Glucose,Urine (UA) Negative (Negative); Hyaline Casts,Urine 1 /LPF (0-3); Ketones,Urine Negative (Negative); Mucus,Urine Occasional /LPF (Occasional); Nitrite,Urine Negative (Negative); Protein,Urine 30 MG/DL; RBC,Urine 1 /HPF (0-4); Urine Color Yellow (Yellow); Urine Specific Gravity 1.017 (1.001-1.035); WBC,Urine <1 /HPF (0-6)
[2016-10-02] MEDS ORDERED: NITROPRUSSIDE 50 MG/2 ML VIAL ONE (09:00)
[2016-10-02] MEDS ORDERED: ALBUMIN 5% 12.5 GM/250 ML VIAL IV ONE (09:00)
[2016-10-02] MEDS ORDERED: PHENYLEPHRINE DRIP 40 MG/250 ML PREMIX IV ONE (09:00)
[2016-10-02] MEDS ORDERED: POTASSIUM CHLORIDE RIDER 100 ML IV ONE (09:00)
[2016-10-02 09:27] LABS: Hematocrit Heart Surgery 23.1 PERCENT (42-52); Hemoglobin Heart Surgery 7.4 G/DL (14.0-18.0); PCO2 Patient Temp Venous 38.5 MM HG; PH Patient Temp Venous 7.508; PO2 Patient Temp Venous 35.4 MM HG; Potassium Heart/CVR 3.1 MMOL/L (3.5-5.1); VBG Base Excess 7.2 MEQ/L (0-4); VBG HCO3 30.7 MEQ/L (24-28); VBG Oxygen Saturation 77.1 %; VBG PCO2 40.4 MMHG (41-51); VBG PH 7.493
[2016-10-02] MEDS ORDERED: INSULIN REGULAR DRIP 100 ML IV ONE (09:28)
[2016-10-02 09:56] LABS: Hematocrit Heart Surgery 20.8 PERCENT (42-52); Hemoglobin Heart Surgery 6.6 G/DL (14.0-18.0); PCO2 Patient Temp Venous 32.5 MM HG; PH Patient Temp Venous 7.581; PO2 Patient Temp Venous 34.8 MM HG; Potassium Heart/CVR 3.5 MMOL/L (3.5-5.1); VBG Base Excess 8.4 MEQ/L (0-4); VBG Oxygen Saturation 84.3 %; VBG PCO2 37.5 MMHG (41-51); VBG PH 7.535; VBG PO2 42.8 MMHG (17-40)
--- NOTE | 2016-10-02 10:09 | Anesthesia Procedures ---
Anesthesia Procedures - Arterial Line Consent obtained arterial line: written consent Time out performed arterial line: Yes Size (Gauge): 20 Technique used arterial line: guide wire technique Post-Procedure: line sutured into place Patient tolerated procedure arterial line: well Complications art line: none Site: right, radial Additional Comments: Per Dr. Tolentino
--- NOTE | 2016-10-02 10:11 | Anesthesia Procedures ---
Anesthesia Procedures - Central Venous Insert Monitors Applied: pulse oximetry, EKG, BP cuff, oxygen via MSBT: pulse oximetry, EKG, BP cuff, oxygen via Procedure: after sterile technique was performed as outlined above, , ultrasound guidance was used to identify vessel, 18G introducer needle was passed into vessel under direct visualizatio, triple lumen catheter was passed over guidewire without difficulty, catheter sutured into place and the ports flushed with NS/hepflush, sterlie dressing applied including the antibiotic disc , vital signs were stable throughout procedure, no apparent complications were noted, CXR to be obtained and read Ultrasound used: identify patency vessel, visualize needle entry to vessel Vein Cannulated: right internal juglar (Chloroprep )
[2016-10-02 10:34] LABS: Hematocrit Heart Surgery 24.6 PERCENT (42-52); Hemoglobin Heart Surgery 7.9 G/DL (14.0-18.0); PCO2 Patient Temp Venous 28.5 MM HG; PO2 Patient Temp Venous 31.3 MM HG; Potassium Heart/CVR 3.2 MMOL/L (3.5-5.1); VBG HCO3 31.6 MEQ/L (24-28); VBG Oxygen Saturation 83.2 %; VBG PCO2 34.6 MMHG (41-51); VBG PH 7.557; VBG PO2 41.3 MMHG (17-40)
[2016-10-02] MEDS: INSULIN LISPRO 100 UNIT/ML SUBCUT SCH ×2 (10:46→13:11)
[2016-10-02] MEDS: GLIMEPIRIDE 4 MG TABLET PO SCH (10:46)
[2016-10-02] MEDS: ASPIRIN EC 81 MG TABLET PO SCH (10:46)
[2016-10-02] MEDS: CITRIC ACID/SODIUM CITRATE 30 ML UDCUP PO SCH (10:46)
[2016-10-02] MEDS: CHLORHEXIDINE 0.12% ORAL RINSE 60 ML BOTTLE SWISH/SPIT SCH ×2 (10:47→21:21)
[2016-10-02] MEDS: FLUTICASONE 50 MCG NASAL SPRAY 16 GM BOTTLE BOTH NARES SCH (10:47)
[2016-10-02] MEDS: INSULIN GLARGINE 100 UNIT/ML SUBCUT SCH (10:47)
[2016-10-02 10:48] LABS: PH Patient Temp Venous 7.619
[2016-10-02] MEDS: PANTOPRAZOLE 40 MG TABLET PO SCH (10:48)
[2016-10-02] MEDS: SODIUM CHLORIDE 0.9% 1,000 ML IV SCH (10:48)
[2016-10-02] MEDS: NIACIN 500 MG TABLET PO SCH (10:48)
[2016-10-02 10:56] LABS: Hematocrit Heart Surgery 27.6 PERCENT (42-52); Hemoglobin Heart Surgery 8.9 G/DL (14.0-18.0); PCO2 Patient Temp Venous 29.5 MM HG; PH Patient Temp Venous 7.592; PO2 Patient Temp Venous 31.6 MM HG; Potassium Heart/CVR 3.7 MMOL/L (3.5-5.1); VBG Base Excess 6.8 MEQ/L (0-4); VBG HCO3 30.3 MEQ/L (24-28); VBG PCO2 32.5 MMHG (41-51); VBG PH 7.561; VBG PO2 36.4 MMHG (17-40)
[2016-10-02] MEDS ORDERED: MAGNESIUM SULFATE 1 GM/2 ML VIAL ONE (11:32)
[2016-10-02] MEDS ORDERED: PHENYLEPHRINE DRIP 20 MG/250 ML PREMIX IV ONE (11:32)
[2016-10-02] MEDS ORDERED: HEPARIN 10,000 UNIT/10 ML VIAL ONE (11:32)
[2016-10-02] MEDS ORDERED: ALBUMIN 25% 25 GM/100 ML VIAL IV ONE (11:32)
[2016-10-02] MEDS ORDERED: SODIUM BICARBONATE 50 MEQ/50 ML SYRINGE IV ONE (11:32)
[2016-10-02] MEDS ORDERED: PROTAMINE SULFATE 250 MG/25 ML VIAL IV ONE (11:32)
[2016-10-02] MEDS ORDERED: DEXTROSE 5% KCL 20 MEQ 20 MEQ/1,000 ML BAG IV ONE (11:32)
[2016-10-02] MEDS ORDERED: FUROSEMIDE 20 MG/2 ML VIAL ONE (11:33)
[2016-10-02] MEDS ORDERED: methylPREDNISolone SOD SUC 1,000 MG/8 ML VIAL ONE (11:33)
[2016-10-02] MEDS ORDERED: MANNITOL 12.5 GM/50 ML VIAL IV ONE (11:33)
[2016-10-02] MEDS ORDERED: POTASSIUM CHLORIDE 20 MEQ/10 ML VIAL ONE (11:33)
[2016-10-02 11:45] LABS: ABG Base Excess 6.5 MMOL/L (-2.5-2.5); ABG HCO3 30.3 MMOL/L (20-26); ABG PCO2 36.6 MM HG (35-48); ABG PH 7.518 (7.35-7.45); ABG TCO2 27.9 MMOL/L (23-27); Glucose Heart Surgery 227 MG/DL (74-106); Hemoglobin Heart Surgery 7.4 G/DL (14.0-18.0); Ionized Calcium Arterial 1.25 MMOL/L (1.21-1.46); PCO2 Patient Temp Arterial 36.6 MMHG; PH Patient Temp Arterial 7.518; Patient Temperature 37 CELCIUS; Potassium Heart/CVR 3.6 MMOL/L (3.5-5.1); Sodium Heart/CVR 136 MMOL/L (135-145)
[2016-10-02] MEDS ORDERED: PROTAMINE SULFATE 50 MG/5 ML VIAL IV ONE ×2 (12:35→12:51)
[2016-10-02] MEDS ORDERED: SUFentanil 250 MCG/5 ML AMP ONE (12:40)
[2016-10-02] MEDS ORDERED: MIDAZOLAM 10 MG/2 ML VIAL ONE ×2 (12:40→12:41)
[2016-10-02] MEDS ORDERED: SEVOFLURANE 1 UNIT/15 MINUTE INH ONE (12:41)
[2016-10-02] MEDS: POTASSIUM CHLORIDE RIDER 20 MEQ in PREMIX 1 EACH IV PRN ×4 (13:00→21:17)
[2016-10-02] MEDS: LACTATED RINGERS 1,000 ML IV PRN ×2 (13:00→15:41)
[2016-10-02 13:03] LABS: ABG Base Excess 6.1 MMOL/L (-2.5-2.5); ABG PCO2 33.1 MM HG (35-48); ABG PH 7.548 (7.35-7.45); ABG TCO2 27.1 MMOL/L (23-27); Glucose Heart Surgery 201 MG/DL (74-106); Potassium Heart/CVR 3.4 MMOL/L (3.5-5.1)
[2016-10-02] MEDS ORDERED: ACETAMINOPHEN 650 MG SUPP RECTAL PRN (13:11)
[2016-10-02] MEDS ORDERED: LACTATED RINGERS 250 ML IV PRN (13:11)
[2016-10-02] MEDS ORDERED: MAGNESIUM SULF RIDER 2 GM in PREMIX 1 EACH IV PRN (13:11)
[2016-10-02] MEDS ORDERED: ALBUMIN 5% 12.5 GM in PREMIX 1 EACH IV PRN (13:11)
[2016-10-02] MEDS ORDERED: VECURONIUM 10 MG VIAL IV PRN ×2 (13:11)
[2016-10-02] MEDS ORDERED: INSULIN REGULAR 100 UNIT/ML IV ONE (13:11)
[2016-10-02] MEDS ORDERED: CALCIUM CHLORIDE 1,000 MG/10 ML SYRINGE IV PRN (13:11)
[2016-10-02] MEDS ORDERED: NITROPRUSSIDE 100 MG in DEXTROSE 5% 250 ML IV PRN (13:11)
[2016-10-02] MEDS ORDERED: INSULIN REGULAR 100 UNIT/ML IV PRN (13:11)
[2016-10-02] MEDS ORDERED: DEXTROSE 50% 25 GM/50 ML VIAL IV PRN ×2 (13:11)
[2016-10-02] MEDS ORDERED: MIDAZOLAM 10 MG/2 ML VIAL IV PRN (13:11)
[2016-10-02] MEDS ORDERED: MIDAZOLAM 2 MG/2 ML VIAL IV PRN (13:11)
[2016-10-02] MEDS ORDERED: PHENYLEPHRINE DRIP 40 MG/250 ML PREMIX IV PRN (13:11)
[2016-10-02] MEDS ORDERED: ONDANSETRON 4 MG/2 ML VIAL IV PRN (13:11)
[2016-10-02] MEDS ORDERED: MAGNESIUM SULF RIDER 4 GM in PREMIX 1 EACH IV PRN (13:11)
--- NOTE | 2016-10-02 13:21 | Operative Note ---
Date of procedure: 10/02/16 Pre-op diagnosis: Aortic valve stenosis and recurrent coronary artery disease Post-op diagnosis: same Procedure: Procedure: Aortic valve replacement with a 21 mm pericardial prosthesis and patch angioplasty of the ostium of the circumflex coronary artery graft. Findings: Patient is an 86-year-old man who had bypass surgery about 20 years ago. His internal mammary graft is still patent to the anterior descending coronary artery and his saphenous vein graft to the right coronary artery is occluded but the [place] right coronary artery does not have significant obstruction at this time. Circumflex coronary graft is open but does have an ostial stenosis. The time of surgery left ventricular function was noted to be normal. Severely stenotic aortic valve was removed and replaced with a 21 mm pericardial prosthesis. The ostial stenosis of the circumflex graft was repaired by patch angioplasty from the aorta to the body of the vein graft using bovine pericardium. Patient tolerated the procedure well and returned to recovery in satisfactory condition. Procedure: The patient brought the operating room placed in the operating table in supine position. After satisfactory induction of general anesthesia the chest abdomen and legs were prepped and draped in sterile fashion. The previous sternotomy incision was reopened and the sternal wires were removed. Sternum was divided by a combination of vibrating saw and scissors dissection. Care was taken to avoid injury to the internal mammary artery and dissection of the heart and aorta was carried out. Cannulation was carried out of the ascending aorta and right atrium after systemic heparinization and cardiopulmonary bypass was begun and aorta was crossclamped. Heart was arrested with cardioplegia solution injected into the aortic root and the heart was protected during the period of crossclamping with topical saline slush. The aorta was opened and a severely stenotic aortic valve was removed and the aortic annulus was rimmed with mattress sutures of 3-0 Ethibond. These were passed through the sewing ring of 21 mm pericardial prosthesis which was lowered and tied into place. Aortotomy was closed with 3-0 Prolene. An incision was made from the saphenous vein graft through the anastomosis to the ascending aorta and carried into the descending aorta. This defect was closed using a patch of bovine pericardium providing widening of the ostium of the saphenous vein graft. Following this the aorta was unclamped and cardiac action reestablished. Patient refrain cardiopulmonary bypass without difficulty and the heparin effect was reversed with protamine and decannulation carried out with a defects in the ascending aorta and right atrium closed with 3 -0 Prolene. Operative field was inspected for hemostasis and this was considered adequate incision was closed with interrupted stainless steel wire and the sternum and 0 Monopril in the presternal fascia. The skin was closed with running subcuticular Monocryl. 2 chest tubes were left in the anterior mediastinum and a single chest tube was left in the right hemithorax and these were brought out through separate stab incisions. Sterile dressings were applied and the patient was returned to recovery in satisfactory condition. Anesthesia: DONNIE Surgeon / Physician: Thaddeus Mehta Estimated blood loss: other (Unable to determine because of cardiopulmonary bypass) Condition: stable Disposition: ICU Results - Labs CBC & BMP: 10/02/16 11:44 10/02/16 03:39 Discharge Plan - Discharge Medications No Action metOLazone [Metolazone] 2.5 mg PO QOTHER DAY Simvastatin 80 mg PO AC SUPPER glyBURIDE MICRONIZED [Glynase] 6 mg PO BID W/MEALS NIFEdipine [Nifedipine ER] 30 mg PO DAILY Metoprolol Succinate 25 mg PO BID cloNIDine HCl [Clonidine HCl] 0.2 mg PO BID Furosemide [Furosemide] 40 mg PO DAILY Aspirin EC Tab 325 mg PO DAILY Glimepiride [Glimepiride] 4 mg PO BID Niacin (Inositol Niacinate) [Niacin 500 mg Capsule] 500 mg PO DAILY Loratadine Tab [Claritin Tab] 10 mg PO DAILY PRN PRN Reason: Allergy Symptoms - Follow Up or Referral - Forms/Instructions
[2016-10-02 13:28] LABS: Basophils % 0.1 % (0.0-0.8); Eosinophils # 0.1 10*3/uL (0.0-0.87); Eosinophils % 1.7 % (0.00-10.9); Hematocrit 20.2 VOL% (42.0-52.0); Hemoglobin 6.9 GM/DL (14.0-18.0); Immature Granulocytes % 1.2 %; Immature Granulocytes Absolute 0.09 #; Lymphocytes # 0.4 10*3/uL (1.4-4.0); Lymphocytes % 5.2 % (21.2-54.2); Mean Corpuscular HGB Conc 34.2 GM/DL (32-36); Mean Corpuscular Hemoglobin 31 PG (27-34); Mean Corpuscular Volume 89.4 FL (87-102); Mean Platelet Volume 10.5 FL (9.6-12.0); Monocytes # 0.6 10*3/uL (0.11-0.8); Monocytes % 7.8 % (1.7-12.7); Neutrophils # 6.3 10*3/uL (1.4-7.4); Platelet Count 63 T/CUMM (130-400); Red Blood Count 2.26 MC/CUMM (3.8-5.5); Red Cell Distribution Width 14.6 % (9.3-17.3); White Blood Count 7.5 T/CUMM (4-12)
[2016-10-02] MEDS ORDERED: INSULIN REGULAR DRIP 100 ML IV SCH (13:30)
[2016-10-02] MEDS ORDERED: SODIUM CHLORIDE 0.45% 1,000 ML IV SCH ×2 (13:30)
[2016-10-02 13:32] LABS: INR 1.4; PT Patient Result 14.8 SECS
[2016-10-02 13:38] LABS: CKMB % 6.8 %; Partial Thromboplastin Time 40.1 SECS (0-40)
[2016-10-02 13:39] LABS: Troponin I Only 3.5 NG/ML (0.00-0.045)
[2016-10-02 13:40] LABS: Albumin 2.5 G/DL (3.4-5.0); Bilirubin,Total 2.1 MG/DL (0.2-1.0); Calcium 8.8 MG/DL (8.5-10.1); Magnesium 2.5 MG/DL (1.8-2.4); Potassium 3.5 MMOL/L (3.5-5.1); Total Protein 4.3 G/DL (6.4-8.3)
[2016-10-02] MEDS: POTASSIUM CHLORIDE RIDER 10 MEQ in PREMIX 1 EACH IV PRN ×3 (13:49→16:45)
--- NOTE | 2016-10-02 14:01 | Cardiothoracic Progress Note ---
Cardiothoracic Subjective Interval history: [place]-Nika catheter placed via the right subclavian vein. Exam (Progress Note) - Constitutional Vitals: Period Temp Pulse Resp BP Sys/Hurtado Pulse Ox Last 24 Hr 94.6 F-98.5 F 68-98 10-20 101-135/41-64 90-100 Result/EKG - Labs CBC & BMP: 10/02/16 12:50 10/02/16 12:50 Labs: Laboratory Results - last 24 hr 10/01/16 10/01/16 10/01/16 03:42 15:57 21:14 WBC RBC Hgb Hct MCV MCH MCHC RDW Plt Count MPV Neut % (Auto) Lymph % (Auto) [place] % (Auto) Eos % (Auto) Baso % (Auto) Neut # (Auto) Lymph # (Auto) [place] # (Auto) Eos # (Auto) Baso # (Auto) Immature Gran % Nucleated RBC % Immature Gran # Nucleated RBCs # INR PT Patient/Control Mix Circ Anticoag PTT Patient Temperature ABG pH ABG pH at Pt Temp ABG pCO2 ABG pCO2 at Pt Temp ABG pO2 ABG pO2 at Pt Temp ABG HCO3 ABG Total CO2 ABG O2 Saturation ABG Base Excess ABG Sodium VBG pH VBG pCO2 VBG pO2 VBG HCO3 VBG Total CO2 VBG O2 Saturation VBG Base Excess Hemoglobin Hematocrit Ionized Calcium FiO2 Sodium Potassium Chloride Carbon Dioxide Anion Gap BUN Creatinine GFR Calculation BUN/Creatinine Ratio Glucose POC Glucose 264 H 138 H Calculated Osmolality Calcium Venous Ioniz Calcium Magnesium Total Bilirubin AST ALT Alkaline Phosphatase Total Creatine Kinase CK-MB (CK-2) CK and CKMB Interp Troponin I Total Protein Albumin Globulin Albumin/Globulin Ratio Urine Color Urine Appearance Urine pH Ur Specific [place] Urine Protein Urine Glucose (UA) Urine Ketones Urine Blood Urine Nitrate Urine Bilirubin Urine Urobilinogen Urine Leukocytes Urine RBC Urine WBC Hyaline Casts Urine Mucus Ur Culture Indicated? Blood Type O POSITIVE Antibody Screen Negative Crossmatch See Detail 10/02/16 10/02/16 10/02/16 03:39 03:39 04:26 WBC 8.5 RBC 3.05 L Hgb 9.1 L Hct 28.5 L MCV 93.4 MCH 30 MCHC 31.9 L RDW 15.1 Plt Count 105 L MPV 10.5 Neut % (Auto) 75.8 H Lymph % (Auto) 12.5 L [place] % (Auto) 8.7 Eos % (Auto) 2.3 Baso % (Auto) 0.2 Neut # (Auto) 6.5 Lymph # (Auto) 1.1 L [place] # (Auto) 0.7 Eos # (Auto) 0.2 Baso # (Auto) 0.0 Immature Gran % 0.5 Nucleated RBC % 0.0 Immature Gran # 0.04 Nucleated RBCs # 0.00 INR PT Patient/Control Mix Circ Anticoag PTT Patient Temperature ABG pH ABG pH at Pt Temp ABG pCO2 ABG pCO2 at Pt Temp ABG pO2 ABG pO2 at Pt Temp ABG HCO3 ABG Total CO2 ABG O2 Saturation ABG Base Excess ABG Sodium VBG pH VBG pCO2 VBG pO2 VBG HCO3 VBG Total CO2 VBG O2 Saturation VBG Base Excess Hemoglobin Hematocrit Ionized Calcium FiO2 Sodium 145 Potassium 3.9 Chloride 101 Carbon Dioxide 36 H Anion Gap 11.9 BUN 35 H Creatinine 1.50 H GFR Calculation 46 BUN/Creatinine Ratio 23.00 H Glucose 119 H POC Glucose 146 H Calculated Osmolality 296.7 Calcium 8.8 Venous Ioniz Calcium Magnesium Total Bilirubin 1.60 H AST 32 ALT 29 Alkaline Phosphatase 95 Total Creatine Kinase CK-MB (CK-2) CK and CKMB Interp Troponin I Total Protein 5.9 L Albumin 2.8 L Globulin 3.1 Albumin/Globulin Ratio 0.9 L Urine Color Urine Appearance Urine pH Ur Specific [place] Urine Protein Urine Glucose (UA) Urine Ketones Urine Blood Urine Nitrate Urine Bilirubin Urine Urobilinogen Urine Leukocytes Urine RBC Urine WBC Hyaline Casts Urine Mucus Ur Culture Indicated? Blood Type Antibody Screen Crossmatch 10/02/16 10/02/16 10/02/16 07:00 07:31 07:31 WBC RBC Hgb Hct MCV MCH MCHC RDW Plt Count 76 L D MPV Neut % (Auto) Lymph % (Auto) [place] % (Auto) Eos % (Auto) Baso % (Auto) Neut # (Auto) Lymph # (Auto) [place] # (Auto) Eos # (Auto) Baso # (Auto) Immature Gran % Nucleated RBC % Immature Gran # Nucleated RBCs # INR PT Patient/Control Mix Circ Anticoag PTT Patient Temperature 37 ABG pH 7.418 ABG pH at Pt Temp 7.418 ABG pCO2 50.2 H ABG pCO2 at Pt Temp 50.2 ABG pO2 251.0 H ABG pO2 at Pt Temp 251.0 ABG HCO3 30.8 H ABG Total CO2 30.1 H ABG O2 Saturation 100.0 ABG Base Excess 6.9 H ABG Sodium 140 VBG pH VBG pCO2 VBG pO2 VBG HCO3 VBG Total CO2 VBG O2 Saturation VBG Base Excess Hemoglobin 8.2 L Hematocrit 25.5 L Ionized Calcium 1.14 L FiO2 Sodium Potassium 2.9 L Chloride Carbon Dioxide Anion Gap BUN Creatinine GFR Calculation BUN/Creatinine Ratio Glucose 113 H POC Glucose Calculated Osmolality Calcium Venous Ioniz Calcium Magnesium Total Bilirubin AST ALT Alkaline Phosphatase Total Creatine Kinase CK-MB (CK-2) CK and CKMB Interp Troponin I Total Protein Albumin Globulin Albumin/Globulin Ratio Urine Color Yellow Urine Appearance Clear Urine pH 8.0 Ur Specific [place] 1.017 Urine Protein 30 Urine Glucose (UA) Negative Urine Ketones Negative Urine Blood Negative Urine Nitrate Negative Urine Bilirubin Negative Urine Urobilinogen 4.0 H Urine Leukocytes Negative Urine RBC 1 Urine WBC <1 Hyaline Casts 1 Urine Mucus Occasional Ur Culture Indicated? Not indicated Blood Type Antibody Screen Crossmatch 10/02/16 10/02/16 10/02/16 09:23 09:56 10:33 WBC RBC Hgb Hct MCV MCH MCHC RDW Plt Count MPV Neut % (Auto) Lymph % (Auto) [place] % (Auto) Eos % (Auto) Baso % (Auto) Neut # (Auto) Lymph # (Auto) [place] # (Auto) Eos # (Auto) Baso # (Auto) Immature Gran % Nucleated RBC % Immature Gran # Nucleated RBCs # INR PT Patient/Control Mix Circ Anticoag PTT Patient Temperature 36 34 33 ABG pH ABG pH at Pt Temp 7.508 7.581 7.619 ABG pCO2 ABG pCO2 at Pt Temp 38.5 32.5 28.5 ABG pO2 ABG pO2 at Pt Temp 35.4 34.8 31.3 ABG HCO3 ABG Total CO2 ABG O2 Saturation ABG Base Excess ABG Sodium 138 134 L 136 VBG pH 7.493 7.535 7.557 VBG pCO2 40.4 L 37.5 L 34.6 L VBG pO2 38.0 42.8 H 41.3 H VBG HCO3 30.7 H 32.0 H 31.6 H VBG Total CO2 29.2 30.1 28.7 VBG O2 Saturation 77.1 84.3 83.2 VBG Base Excess 7.2 H 8.4 H 8.0 H Hemoglobin 7.4 L 6.6 L 7.9 L Hematocrit 23.1 L 20.8 L 24.6 L Ionized Calcium FiO2 80.00 80.00 80.00 Sodium Potassium 3.1 L 3.5 3.2 L Chloride Carbon Dioxide Anion Gap BUN Creatinine GFR Calculation BUN/Creatinine Ratio Glucose 122 H 240 H 229 H POC Glucose Calculated Osmolality Calcium Venous Ioniz Calcium 1.01 L 1.00 L 1.01 L Magnesium Total Bilirubin AST ALT Alkaline Phosphatase Total Creatine Kinase CK-MB (CK-2) CK and CKMB Interp Troponin I Total Protein Albumin Globulin Albumin/Globulin Ratio Urine Color Urine Appearance Urine pH Ur Specific [place] Urine Protein Urine Glucose (UA) Urine Ketones Urine Blood Urine Nitrate Urine Bilirubin Urine Urobilinogen Urine Leukocytes Urine RBC Urine WBC Hyaline Casts Urine Mucus Ur Culture Indicated? Blood Type Antibody Screen Crossmatch 10/02/16 10/02/16 10/02/16 10:55 11:44 11:44 WBC RBC Hgb Hct MCV MCH MCHC RDW Plt Count 46 L D MPV Neut % (Auto) Lymph % (Auto) [place] % (Auto) Eos % (Auto) Baso % (Auto) Neut # (Auto) Lymph # (Auto) [place] # (Auto) Eos # (Auto) Baso # (Auto) Immature Gran % Nucleated RBC % Immature Gran # Nucleated RBCs # INR PT Patient/Control Mix Circ Anticoag PTT Patient Temperature 35 37 ABG pH 7.518 H ABG pH at Pt Temp 7.592 7.518 ABG pCO2 36.6 ABG pCO2 at Pt Temp 29.5 36.6 ABG pO2 452.0 H ABG pO2 at Pt Temp 31.6 452.0 ABG HCO3 30.3 H ABG Total CO2 27.9 H ABG O2 Saturation 100.0 ABG Base Excess 6.5 H ABG Sodium 135 136 VBG pH 7.561 VBG pCO2 32.5 L VBG pO2 36.4 VBG HCO3 30.3 H VBG Total CO2 26.9 VBG O2 Saturation 80.0 VBG Base Excess 6.8 H Hemoglobin 8.9 L 7.4 L Hematocrit 27.6 L 23.0 L Ionized Calcium 1.25 FiO2 80.00 Sodium Potassium 3.7 3.6 Chloride Carbon Dioxide Anion Gap BUN Creatinine GFR Calculation BUN/Creatinine Ratio Glucose 244 H 227 H POC Glucose Calculated Osmolality Calcium Venous Ioniz Calcium 0.99 L Magnesium Total Bilirubin AST ALT Alkaline Phosphatase Total Creatine Kinase CK-MB (CK-2) CK and CKMB Interp Troponin I Total Protein Albumin Globulin Albumin/Globulin Ratio Urine Color Urine Appearance Urine pH Ur Specific [place] Urine Protein Urine Glucose (UA) Urine Ketones Urine Blood Urine Nitrate Urine Bilirubin Urine Urobilinogen Urine Leukocytes Urine RBC Urine WBC Hyaline Casts Urine Mucus Ur Culture Indicated? Blood Type Antibody Screen Crossmatch 10/02/16 10/02/16 10/02/16 12:50 12:50 12:50 WBC 7.5 RBC 2.26 L D Hgb 6.9 L D Hct 20.2 L MCV 89.4 MCH 31 MCHC 34.2 RDW 14.6 Plt Count 63 L D MPV 10.5 Neut % (Auto) 84.0 H Lymph % (Auto) 5.2 L [place] % (Auto) 7.8 Eos % (Auto) 1.7 Baso % (Auto) 0.1 Neut # (Auto) 6.3 Lymph # (Auto) 0.4 L [place] # (Auto) 0.6 Eos # (Auto) 0.1 Baso # (Auto) 0.0 Immature Gran % 1.2 Nucleated RBC % 0.0 Immature Gran # 0.09 Nucleated RBCs # 0.00 INR 1.4 PT Patient/Control Mix 14.8 D Circ Anticoag PTT 40.1 H Patient Temperature ABG pH ABG pH at Pt Temp ABG pCO2 ABG pCO2 at Pt Temp ABG pO2 ABG pO2 at Pt Temp ABG HCO3 ABG Total CO2 ABG O2 Saturation ABG Base Excess ABG Sodium VBG pH VBG pCO2 VBG pO2 VBG HCO3 VBG Total CO2 VBG O2 Saturation VBG Base Excess Hemoglobin Hematocrit Ionized Calcium FiO2 Sodium 143 Potassium 3.5 Chloride 102 Carbon Dioxide 30 Anion Gap 14.5 BUN 33 H Creatinine 1.40 H GFR Calculation 50 BUN/Creatinine Ratio 23.00 H Glucose 199 H POC Glucose Calculated Osmolality 297.0 Calcium 8.8 Venous Ioniz Calcium Magnesium 2.5 H Total Bilirubin 2.10 H AST 35 ALT 20 Alkaline Phosphatase 48 Total Creatine Kinase CK-MB (CK-2) CK and CKMB Interp Troponin I Total Protein 4.3 L Albumin 2.5 L Globulin 1.8 L Albumin/Globulin Ratio 1.3 Urine Color Urine Appearance Urine pH Ur Specific [place] Urine Protein Urine Glucose (UA) Urine Ketones Urine Blood Urine Nitrate Urine Bilirubin Urine Urobilinogen Urine Leukocytes Urine RBC Urine WBC Hyaline Casts Urine Mucus Ur Culture Indicated? Blood Type Antibody Screen Crossmatch 10/02/16 10/02/16 12:50 12:59 WBC RBC Hgb Hct MCV MCH MCHC RDW Plt Count MPV Neut % (Auto) Lymph % (Auto) [place] % (Auto) Eos % (Auto) Baso % (Auto) Neut # (Auto) Lymph # (Auto) [place] # (Auto) Eos # (Auto) Baso # (Auto) Immature Gran % Nucleated RBC % Immature Gran # Nucleated RBCs # INR PT Patient/Control Mix Circ Anticoag PTT Patient Temperature ABG pH 7.548 H ABG pH at Pt Temp ABG pCO2 33.1 L ABG pCO2 at Pt Temp ABG pO2 273.0 H ABG pO2 at Pt Temp ABG HCO3 30.0 H ABG Total CO2 27.1 H ABG O2 Saturation 100.0 ABG Base Excess 6.1 H ABG Sodium VBG pH VBG pCO2 VBG pO2 VBG HCO3 VBG Total CO2 VBG O2 Saturation VBG Base Excess Hemoglobin 7.0 L Hematocrit 22.0 L Ionized Calcium FiO2 Sodium Potassium 3.4 L Chloride Carbon Dioxide Anion Gap BUN Creatinine GFR Calculation BUN/Creatinine Ratio Glucose 201 H POC Glucose Calculated Osmolality Calcium Venous Ioniz Calcium Magnesium Total Bilirubin AST ALT Alkaline Phosphatase Total Creatine Kinase 192 CK-MB (CK-2) 13.0 H CK and CKMB Interp 6.8 Troponin I 3.500 H Total Protein Albumin Globulin Albumin/Globulin Ratio Urine Color Urine Appearance Urine pH Ur Specific [place] Urine Protein Urine Glucose (UA) Urine Ketones Urine Blood Urine Nitrate Urine Bilirubin Urine Urobilinogen Urine Leukocytes Urine RBC Urine WBC Hyaline Casts Urine Mucus Ur Culture Indicated? Blood Type Antibody Screen Crossmatch Quality Measures - VTE Contraindication to Pharmacological VTE Prophylaxis: High Risk of Bleeding - Stroke Onset of Symptoms Date: 09/05/16 Onset of Symptoms Time: 15:30 Symptom Onset Unknown: No
--- NOTE | 2016-10-02 14:24 | XRay Report ---
History: Postop thoracotomy. Line placement Date: 10/02/2016 at 1:56 PM Study: Chest x-ray single view portable Comparison exam: September 26, 2016 chest x-ray The endotracheal tube, nasogastric tube, right IJ central line, and right subclavian [place] catheter are well-positioned. Chest drainage tubes overlie the mediastinum and right hemithorax. There is no pneumothorax. There is stable cardiomegaly. The mediastinal contours are unchanged. The pulmonary vasculature is upper normal. There is some hazy edema in the lower lungs, with slightly improved aeration compared to the previous study. There is mild to moderate right and mild left pleural effusion, both improved to a mild degree. Osseous structures are unchanged. Impression: The supporting tubes are in satisfactory position. There is no pneumothorax. There is bilateral pulmonary edema and right greater than left pleural effusion, both improved in the interval PROCEDURE INTERPRETED AT [facility] DEPARTMENT OF RADIOLOGY Final Report Signed by: Dr. Nadja Muse
[2016-10-02 15:17] LABS: ABG Base Excess 4.7 MMOL/L (-2.5-2.5); ABG HCO3 28.7 MMOL/L (20-26); ABG Oxygen Saturation 99.4 % (95-100); ABG PCO2 34.2 MM HG (35-48); ABG PH 7.516 (7.35-7.45); ABG TCO2 25.5 MMOL/L (23-27); Glucose Heart Surgery 180 MG/DL (74-106); Hematocrit Heart Surgery 26.5 PERCENT (42-52); Hemoglobin Heart Surgery 8.5 G/DL (14.0-18.0); Potassium Heart/CVR 3.8 MMOL/L (3.5-5.1)
--- NOTE | 2016-10-02 16:18 | Cardiology Progress Note ---
Assessment and Plan (1) Acute on chronic renal failure Status: Acute Current Visit: Yes (2) Atrial flutter by electrocardiogram Status: Acute Current Visit: Yes (3) Bradycardia Status: Resolved Current Visit: Yes (4) Epistaxis Status: Resolved Current Visit: Yes (5) Hypertension Status: Chronic Current Visit: Yes Qualifiers: Qualified Code(s): I10 - Essential (primary) hypertension (6) Pulmonary hypertension Status: Chronic Assessment and plan: This is significant but better than indicated by TTE Current Visit: Yes (7) Severe aortic stenosis Status: Chronic Assessment and plan: S/P AVR Current Visit: Yes (8) TIA (transient ischemic attack) Status: Acute Current Visit: Yes (9) Unsteady gait Status: Chronic Current Visit: Yes (10) Coronary artery disease Status: Chronic Assessment and plan: Adequately revascularized except for the ostial vein graft to the first obtuse marginal which now has a nice vein graft pericardial patch Current Visit: Yes Qualifiers: Qualified Code(s): I25.10 - Atherosclerotic heart disease of [place] coronary artery without angina pectoris (11) Diabetes mellitus Status: Chronic Current Visit: Yes (12) Hypoxemia Status: Acute Current Visit: Yes Cardiology - PN: Subj Interval history: I saw Mr. Frazier in the CVR post his surgery. Also discussed with Dr. Mehta. He received an aortic valve replacement as well as a pericardial patch graft location of the saphenous vein graft to the circumflex distribution. The patient has a PA catheter in place which shows pressures to be significantly lower than estimated by transthoracic echo with PA systolic pressure 56 mmHg. He is receiving blood and overall appears to be very stable postoperatively. Exam (Progress Note) - Constitutional Vitals: Period Temp Pulse Resp BP Sys/H[place]ado Pulse Ox Last 24 Hr 94.6 F-98.5 F 68-98 10-20 91-130/40-64 91-100 - Respiratory Respiratory exam: Present: clear to auscultation bilaterally (On the ventilator) - Cardiovascular Cardiovascular exam: Present: regular rate and rhythm (No gallop or rub at this time) - GI/Abdominal GI/Abdominal exam: Present: normal bowel sounds Result/EKG - Labs CBC & BMP: 10/02/16 12:50 10/02/16 12:50 Labs: Laboratory Results - last 24 hr 10/01/16 10/01/16 10/01/16 03:42 15:57 21:14 WBC RBC Hgb Hct MCV MCH MCHC RDW Plt Count MPV Neut % (Auto) Lymph % (Auto) Cannon % (Auto) Eos % (Auto) Baso % (Auto) Neut # (Auto) Lymph # (Auto) Cannon # (Auto) Eos # (Auto) Baso # (Auto) Immature Gran % Nucleated RBC % Immature Gran # Nucleated RBCs # INR PT Patient/Control Mix Circ Anticoag PTT Patient Temperature ABG pH ABG pH at Pt Temp ABG pCO2 ABG pCO2 at Pt Temp ABG pO2 ABG pO2 at Pt Temp ABG HCO3 ABG Total CO2 ABG O2 Saturation ABG Base Excess ABG Sodium VBG pH VBG pCO2 VBG pO2 VBG HCO3 VBG Total CO2 VBG O2 Saturation VBG Base Excess Hemoglobin Hematocrit Ionized Calcium FiO2 Sodium Potassium Chloride Carbon Dioxide Anion Gap BUN Creatinine GFR Calculation BUN/Creatinine Ratio Glucose POC Glucose 264 H 138 H Calculated Osmolality Calcium Venous Ioniz Calcium Magnesium Total Bilirubin AST ALT Alkaline Phosphatase Total Creatine Kinase CK-MB (CK-2) CK and CKMB Interp Troponin I Total Protein Albumin Globulin Albumin/Globulin Ratio Urine Color Urine Appearance Urine pH Ur Specific [place] Urine Protein Urine Glucose (UA) Urine Ketones Urine Blood Urine Nitrate Urine Bilirubin Urine Urobilinogen Urine Leukocytes Urine RBC Urine WBC Hyaline Casts Urine Mucus Ur Culture Indicated? Blood Type O POSITIVE Antibody Screen Negative Crossmatch See Detail 10/02/16 10/02/16 10/02/16 03:39 03:39 04:26 WBC 8.5 RBC 3.05 L Hgb 9.1 L Hct 28.5 L MCV 93.4 MCH 30 MCHC 31.9 L RDW 15.1 Plt Count 105 L MPV 10.5 Neut % (Auto) 75.8 H Lymph % (Auto) 12.5 L Cannon % (Auto) 8.7 Eos % (Auto) 2.3 Baso % (Auto) 0.2 Neut # (Auto) 6.5 Lymph # (Auto) 1.1 L Cannon # (Auto) 0.7 Eos # (Auto) 0.2 Baso # (Auto) 0.0 Immature Gran % 0.5 Nucleated RBC % 0.0 Immature Gran # 0.04 Nucleated RBCs # 0.00 INR PT Patient/Control Mix Circ Anticoag PTT Patient Temperature ABG pH ABG pH at Pt Temp ABG pCO2 ABG pCO2 at Pt Temp ABG pO2 ABG pO2 at Pt Temp ABG HCO3 ABG Total CO2 ABG O2 Saturation ABG Base Excess ABG Sodium VBG pH VBG pCO2 VBG pO2 VBG HCO3 VBG Total CO2 VBG O2 Saturation VBG Base Excess Hemoglobin Hematocrit Ionized Calcium FiO2 Sodium 145 Potassium 3.9 Chloride 101 Carbon Dioxide 36 H Anion Gap 11.9 BUN 35 H Creatinine 1.50 H GFR Calculation 46 BUN/Creatinine Ratio 23.00 H Glucose 119 H POC Glucose 146 H Calculated Osmolality 296.7 Calcium 8.8 Venous Ioniz Calcium Magnesium Total Bilirubin 1.60 H AST 32 ALT 29 Alkaline Phosphatase 95 Total Creatine Kinase CK-MB (CK-2) CK and CKMB Interp Troponin I Total Protein 5.9 L Albumin 2.8 L Globulin 3.1 Albumin/Globulin Ratio 0.9 L Urine Color Urine Appearance Urine pH Ur Specific [place] Urine Protein Urine Glucose (UA) Urine Ketones Urine Blood Urine Nitrate Urine Bilirubin Urine Urobilinogen Urine Leukocytes Urine RBC Urine WBC Hyaline Casts Urine Mucus Ur Culture Indicated? Blood Type Antibody Screen Crossmatch 10/02/16 10/02/16 10/02/16 07:00 07:31 07:31 WBC RBC Hgb Hct MCV MCH MCHC RDW Plt Count 76 L D MPV Neut % (Auto) Lymph % (Auto) Cannon % (Auto) Eos % (Auto) Baso % (Auto) Neut # (Auto) Lymph # (Auto) Cannon # (Auto) Eos # (Auto) Baso # (Auto) Immature Gran % Nucleated RBC % Immature Gran # Nucleated RBCs # INR PT Patient/Control Mix Circ Anticoag PTT Patient Temperature 37 ABG pH 7.418 ABG pH at Pt Temp 7.418 ABG pCO2 50.2 H ABG pCO2 at Pt Temp 50.2 ABG pO2 251.0 H ABG pO2 at Pt Temp 251.0 ABG HCO3 30.8 H ABG Total CO2 30.1 H ABG O2 Saturation 100.0 ABG Base Excess 6.9 H ABG Sodium 140 VBG pH VBG pCO2 VBG pO2 VBG HCO3 VBG Total CO2 VBG O2 Saturation VBG Base Excess Hemoglobin 8.2 L Hematocrit 25.5 L Ionized Calcium 1.14 L FiO2 Sodium Potassium 2.9 L Chloride Carbon Dioxide Anion Gap BUN Creatinine GFR Calculation BUN/Creatinine Ratio Glucose 113 H POC Glucose Calculated Osmolality Calcium Venous Ioniz Calcium Magnesium Total Bilirubin AST ALT Alkaline Phosphatase Total Creatine Kinase CK-MB (CK-2) CK and CKMB Interp Troponin I Total Protein Albumin Globulin Albumin/Globulin Ratio Urine Color Yellow Urine Appearance Clear Urine pH 8.0 Ur Specific [place] 1.017 Urine Protein 30 Urine Glucose (UA) Negative Urine Ketones Negative Urine Blood Negative Urine Nitrate Negative Urine Bilirubin Negative Urine Urobilinogen 4.0 H Urine Leukocytes Negative Urine RBC 1 Urine WBC <1 Hyaline Casts 1 Urine Mucus Occasional Ur Culture Indicated? Not indicated Blood Type Antibody Screen Crossmatch 10/02/16 10/02/16 10/02/16 09:23 09:56 10:33 WBC RBC Hgb Hct MCV MCH MCHC RDW Plt Count MPV Neut % (Auto) Lymph % (Auto) Cannon % (Auto) Eos % (Auto) Baso % (Auto) Neut # (Auto) Lymph # (Auto) Cannon # (Auto) Eos # (Auto) Baso # (Auto) Immature Gran % Nucleated RBC % Immature Gran # Nucleated RBCs # INR PT Patient/Control Mix Circ Anticoag PTT Patient Temperature 36 34 33 ABG pH ABG pH at Pt Temp 7.508 7.581 7.619 ABG pCO2 ABG pCO2 at Pt Temp 38.5 32.5 28.5 ABG pO2 ABG pO2 at Pt Temp 35.4 34.8 31.3 ABG HCO3 ABG Total CO2 ABG O2 Saturation ABG Base Excess ABG Sodium 138 134 L 136 VBG pH 7.493 7.535 7.557 VBG pCO2 40.4 L 37.5 L 34.6 L VBG pO2 38.0 42.8 H 41.3 H VBG HCO3 30.7 H 32.0 H 31.6 H VBG Total CO2 29.2 30.1 28.7 VBG O2 Saturation 77.1 84.3 83.2 VBG Base Excess 7.2 H 8.4 H 8.0 H Hemoglobin 7.4 L 6.6 L 7.9 L Hematocrit 23.1 L 20.8 L 24.6 L Ionized Calcium FiO2 80.00 80.00 80.00 Sodium Potassium 3.1 L 3.5 3.2 L Chloride Carbon Dioxide Anion Gap BUN Creatinine GFR Calculation BUN/Creatinine Ratio Glucose 122 H 240 H 229 H POC Glucose Calculated Osmolality Calcium Venous Ioniz Calcium 1.01 L 1.00 L 1.01 L Magnesium Total Bilirubin AST ALT Alkaline Phosphatase Total Creatine Kinase CK-MB (CK-2) CK and CKMB Interp Troponin I Total Protein Albumin Globulin Albumin/Globulin Ratio Urine Color Urine Appearance Urine pH Ur Specific [place] Urine Protein Urine Glucose (UA) Urine Ketones Urine Blood Urine Nitrate Urine Bilirubin Urine Urobilinogen Urine Leukocytes Urine RBC Urine WBC Hyaline Casts Urine Mucus Ur Culture Indicated? Blood Type Antibody Screen Crossmatch 10/02/16 10/02/16 10/02/16 10:55 11:44 11:44 WBC RBC Hgb Hct MCV MCH MCHC RDW Plt Count 46 L D MPV Neut % (Auto) Lymph % (Auto) Cannon % (Auto) Eos % (Auto) Baso % (Auto) Neut # (Auto) Lymph # (Auto) Cannon # (Auto) Eos # (Auto) Baso # (Auto) Immature Gran % Nucleated RBC % Immature Gran # Nucleated RBCs # INR PT Patient/Control Mix Circ Anticoag PTT Patient Temperature 35 37 ABG pH 7.518 H ABG pH at Pt Temp 7.592 7.518 ABG pCO2 36.6 ABG pCO2 at Pt Temp 29.5 36.6 ABG pO2 452.0 H ABG pO2 at Pt Temp 31.6 452.0 ABG HCO3 30.3 H ABG Total CO2 27.9 H ABG O2 Saturation 100.0 ABG Base Excess 6.5 H ABG Sodium 135 136 VBG pH 7.561 VBG pCO2 32.5 L VBG pO2 36.4 VBG HCO3 30.3 H VBG Total CO2 26.9 VBG O2 Saturation 80.0 VBG Base Excess 6.8 H Hemoglobin 8.9 L 7.4 L Hematocrit 27.6 L 23.0 L Ionized Calcium 1.25 FiO2 80.00 Sodium Potassium 3.7 3.6 Chloride Carbon Dioxide Anion Gap BUN Creatinine GFR Calculation BUN/Creatinine Ratio Glucose 244 H 227 H POC Glucose Calculated Osmolality Calcium Venous Ioniz Calcium 0.99 L Magnesium Total Bilirubin AST ALT Alkaline Phosphatase Total Creatine Kinase CK-MB (CK-2) CK and CKMB Interp Troponin I Total Protein Albumin Globulin Albumin/Globulin Ratio Urine Color Urine Appearance Urine pH Ur Specific [place] Urine Protein Urine Glucose (UA) Urine Ketones Urine Blood Urine Nitrate Urine Bilirubin Urine Urobilinogen Urine Leukocytes Urine RBC Urine WBC Hyaline Casts Urine Mucus Ur Culture Indicated? Blood Type Antibody Screen Crossmatch 10/02/16 10/02/16 10/02/16 12:50 12:50 12:50 WBC 7.5 RBC 2.26 L D Hgb 6.9 L D Hct 20.2 L MCV 89.4 MCH 31 MCHC 34.2 RDW 14.6 Plt Count 63 L D MPV 10.5 Neut % (Auto) 84.0 H Lymph % (Auto) 5.2 L Cannon % (Auto) 7.8 Eos % (Auto) 1.7 Baso % (Auto) 0.1 Neut # (Auto) 6.3 Lymph # (Auto) 0.4 L Cannon # (Auto) 0.6 Eos # (Auto) 0.1 Baso # (Auto) 0.0 Immature Gran % 1.2 Nucleated RBC % 0.0 Immature Gran # 0.09 Nucleated RBCs # 0.00 INR 1.4 PT Patient/Control Mix 14.8 D Circ Anticoag PTT 40.1 H Patient Temperature ABG pH ABG pH at Pt Temp ABG pCO2 ABG pCO2 at Pt Temp ABG pO2 ABG pO2 at Pt Temp ABG HCO3 ABG Total CO2 ABG O2 Saturation ABG Base Excess ABG Sodium VBG pH VBG pCO2 VBG pO2 VBG HCO3 VBG Total CO2 VBG O2 Saturation VBG Base Excess Hemoglobin Hematocrit Ionized Calcium FiO2 Sodium 143 Potassium 3.5 Chloride 102 Carbon Dioxide 30 Anion Gap 14.5 BUN 33 H Creatinine 1.40 H GFR Calculation 50 BUN/Creatinine Ratio 23.00 H Glucose 199 H POC Glucose Calculated Osmolality 297.0 Calcium 8.8 Venous Ioniz Calcium Magnesium 2.5 H Total Bilirubin 2.10 H AST 35 ALT 20 Alkaline Phosphatase 48 Total Creatine Kinase CK-MB (CK-2) CK and CKMB Interp Troponin I Total Protein 4.3 L Albumin 2.5 L Globulin 1.8 L Albumin/Globulin Ratio 1.3 Urine Color Urine Appearance Urine pH Ur Specific [place] Urine Protein Urine Glucose (UA) Urine Ketones Urine Blood Urine Nitrate Urine Bilirubin Urine Urobilinogen Urine Leukocytes Urine RBC Urine WBC Hyaline Casts Urine Mucus Ur Culture Indicated? Blood Type Antibody Screen Crossmatch 10/02/16 10/02/16 10/02/16 12:50 12:59 15:00 WBC RBC Hgb Hct MCV MCH MCHC RDW Plt Count MPV Neut % (Auto) Lymph % (Auto) Cannon % (Auto) Eos % (Auto) Baso % (Auto) Neut # (Auto) Lymph # (Auto) Cannon # (Auto) Eos # (Auto) Baso # (Auto) Immature Gran % Nucleated RBC % Immature Gran # Nucleated RBCs # INR PT Patient/Control Mix Circ Anticoag PTT Patient Temperature ABG pH 7.548 H 7.516 H ABG pH at Pt Temp ABG pCO2 33.1 L 34.2 L ABG pCO2 at Pt Temp ABG pO2 273.0 H 155.0 H ABG pO2 at Pt Temp ABG HCO3 30.0 H 28.7 H ABG Total CO2 27.1 H 25.5 ABG O2 Saturation 100.0 99.4 ABG Base Excess 6.1 H 4.7 H ABG Sodium VBG pH VBG pCO2 VBG pO2 VBG HCO3 VBG Total CO2 VBG O2 Saturation VBG Base Excess Hemoglobin 7.0 L 8.5 L D Hematocrit 22.0 L 26.5 L Ionized Calcium FiO2 Sodium Potassium 3.4 L 3.8 Chloride Carbon Dioxide Anion Gap BUN Creatinine GFR Calculation BUN/Creatinine Ratio Glucose 201 H 180 H POC Glucose Calculated Osmolality Calcium Venous Ioniz Calcium Magnesium Total Bilirubin AST ALT Alkaline Phosphatase Total Creatine Kinase 192 CK-MB (CK-2) 13.0 H CK and CKMB Interp 6.8 Troponin I 3.500 H Total Protein Albumin Globulin Albumin/Globulin Ratio Urine Color Urine Appearance Urine pH Ur Specific [place] Urine Protein Urine Glucose (UA) Urine Ketones Urine Blood Urine Nitrate Urine Bilirubin Urine Urobilinogen Urine Leukocytes Urine RBC Urine WBC Hyaline Casts Urine Mucus Ur Culture Indicated? Blood Type Antibody Screen Crossmatch Quality Measures - VTE Contraindication to Pharmacological VTE Prophylaxis: High Risk of Bleeding - Stroke Onset of Symptoms Date: 09/05/16 Onset of Symptoms Time: 15:30 Symptom Onset Unknown: No
--- NOTE | 2016-10-02 16:28 | Cardiology Progress Note ---
Assessment and Plan (1) Severe aortic stenosis Status: Chronic Assessment and plan: SEE PLAN OF CARE LISTED BELOW. Current Visit: Yes (2) Syncope Status: Acute Assessment and plan: SEE PLAN OF CARE LISTED BELOW Current Visit: Yes (3) Atrial flutter by electrocardiogram Status: Acute Assessment and plan: SEE PLAN OF CARE LISTED BELOW Current Visit: Yes (4) Bradycardia Status: Resolved Assessment and plan: SEE PLAN OF CARE LISTED BELOW Current Visit: Yes (5) Coronary artery disease Status: Chronic Assessment and plan: SEE PLAN OF CARE LISTED BELOW Current Visit: Yes Qualifiers: Coronary Disease-Associated Artery/Lesion type: [place] artery [place] vs. transplanted heart: [place] heart Associated angina: without angina Qualified Code(s): I25.10 - Atherosclerotic heart disease of [place] coronary artery without angina pectoris (6) Hypertension Status: Chronic Assessment and plan: SEE PLAN OF CARE LISTED BELOW Current Visit: Yes (7) Hyperlipidemia Status: Chronic Assessment and plan: SEE PLAN OF CARE LISTED BELOW Current Visit: Yes (8) Diabetes mellitus Status: Chronic Assessment and plan: SEE PLAN OF CARE LISTED BELOW Current Visit: Yes Qualifiers: Diabetes mellitus type: type 2 (9) Acute on chronic renal failure Status: Acute Assessment and plan: SEE PLAN OF CARE LISTED BELOW Current Visit: Yes (10) Leukocytosis Status: Resolved Assessment and plan: SEE PLAN OF CARE LISTED BELOW Current Visit: Yes (11) Epistaxis Status: Resolved Assessment and plan: SEE PLAN OF CARE LISTED BELOW Current Visit: Yes (12) Pleural effusion Status: Acute Assessment and plan: SEE PLAN OF CARE LISTED BELOW. Current Visit: Yes Exam (Progress Note) - Constitutional Vitals: Period Temp Pulse Resp BP Sys/[place] Pulse Ox Last 24 Hr 94.6 F-98.5 F 68-98 10-20 91-135/40-64 90-100 Result/EKG - Labs CBC & BMP: 10/02/16 12:50 10/02/16 12:50 Labs: Laboratory Results - last 24 hr 10/01/16 10/01/16 10/01/16 03:42 15:57 21:14 WBC RBC Hgb Hct MCV MCH MCHC RDW Plt Count MPV Neut % (Auto) Lymph % (Auto) [place] % (Auto) Eos % (Auto) Baso % (Auto) Neut # (Auto) Lymph # (Auto) [place] # (Auto) Eos # (Auto) Baso # (Auto) Immature Gran % Nucleated RBC % Immature Gran # Nucleated RBCs # INR PT Patient/Control Mix Circ Anticoag PTT Patient Temperature ABG pH ABG pH at Pt Temp ABG pCO2 ABG pCO2 at Pt Temp ABG pO2 ABG pO2 at Pt Temp ABG HCO3 ABG Total CO2 ABG O2 Saturation ABG Base Excess ABG Sodium VBG pH VBG pCO2 VBG pO2 VBG HCO3 VBG Total CO2 VBG O2 Saturation VBG Base Excess Hemoglobin Hematocrit Ionized Calcium FiO2 Sodium Potassium Chloride Carbon Dioxide Anion Gap BUN Creatinine GFR Calculation BUN/Creatinine Ratio Glucose POC Glucose 264 H 138 H Calculated Osmolality Calcium Venous Ioniz Calcium Magnesium Total Bilirubin AST ALT Alkaline Phosphatase Total Creatine Kinase CK-MB (CK-2) CK and CKMB Interp Troponin I Total Protein Albumin Globulin Albumin/Globulin Ratio Urine Color Urine Appearance Urine pH Ur Specific [place] Urine Protein Urine Glucose (UA) Urine Ketones Urine Blood Urine Nitrate Urine Bilirubin Urine Urobilinogen Urine Leukocytes Urine RBC Urine WBC Hyaline Casts Urine Mucus Ur Culture Indicated? Blood Type O POSITIVE Antibody Screen Negative Crossmatch See Detail 10/02/16 10/02/16 10/02/16 03:39 03:39 04:26 WBC 8.5 RBC 3.05 L Hgb 9.1 L Hct 28.5 L MCV 93.4 MCH 30 MCHC 31.9 L RDW 15.1 Plt Count 105 L MPV 10.5 Neut % (Auto) 75.8 H Lymph % (Auto) 12.5 L [place] % (Auto) 8.7 Eos % (Auto) 2.3 Baso % (Auto) 0.2 Neut # (Auto) 6.5 Lymph # (Auto) 1.1 L [place] # (Auto) 0.7 Eos # (Auto) 0.2 Baso # (Auto) 0.0 Immature Gran % 0.5 Nucleated RBC % 0.0 Immature Gran # 0.04 Nucleated RBCs # 0.00 INR PT Patient/Control Mix Circ Anticoag PTT Patient Temperature ABG pH ABG pH at Pt Temp ABG pCO2 ABG pCO2 at Pt Temp ABG pO2 ABG pO2 at Pt Temp ABG HCO3 ABG Total CO2 ABG O2 Saturation ABG Base Excess ABG Sodium VBG pH VBG pCO2 VBG pO2 VBG HCO3 VBG Total CO2 VBG O2 Saturation VBG Base Excess Hemoglobin Hematocrit Ionized Calcium FiO2 Sodium 145 Potassium 3.9 Chloride 101 Carbon Dioxide 36 H Anion Gap 11.9 BUN 35 H Creatinine 1.50 H GFR Calculation 46 BUN/Creatinine Ratio 23.00 H Glucose 119 H POC Glucose 146 H Calculated Osmolality 296.7 Calcium 8.8 Venous Ioniz Calcium Magnesium Total Bilirubin 1.60 H AST 32 ALT 29 Alkaline Phosphatase 95 Total Creatine Kinase CK-MB (CK-2) CK and CKMB Interp Troponin I Total Protein 5.9 L Albumin 2.8 L Globulin 3.1 Albumin/Globulin Ratio 0.9 L Urine Color Urine Appearance Urine pH Ur Specific [place] Urine Protein Urine Glucose (UA) Urine Ketones Urine Blood Urine Nitrate Urine Bilirubin Urine Urobilinogen Urine Leukocytes Urine RBC Urine WBC Hyaline Casts Urine Mucus Ur Culture Indicated? Blood Type Antibody Screen Crossmatch 10/02/16 10/02/16 10/02/16 07:00 07:31 07:31 WBC RBC Hgb Hct MCV MCH MCHC RDW Plt Count 76 L D MPV Neut % (Auto) Lymph % (Auto) [place] % (Auto) Eos % (Auto) Baso % (Auto) Neut # (Auto) Lymph # (Auto) [place] # (Auto) Eos # (Auto) Baso # (Auto) Immature Gran % Nucleated RBC % Immature Gran # Nucleated RBCs # INR PT Patient/Control Mix Circ Anticoag PTT Patient Temperature 37 ABG pH 7.418 ABG pH at Pt Temp 7.418 ABG pCO2 50.2 H ABG pCO2 at Pt Temp 50.2 ABG pO2 251.0 H ABG pO2 at Pt Temp 251.0 ABG HCO3 30.8 H ABG Total CO2 30.1 H ABG O2 Saturation 100.0 ABG Base Excess 6.9 H ABG Sodium 140 VBG pH VBG pCO2 VBG pO2 VBG HCO3 VBG Total CO2 VBG O2 Saturation VBG Base Excess Hemoglobin 8.2 L Hematocrit 25.5 L Ionized Calcium 1.14 L FiO2 Sodium Potassium 2.9 L Chloride Carbon Dioxide Anion Gap BUN Creatinine GFR Calculation BUN/Creatinine Ratio Glucose 113 H POC Glucose Calculated Osmolality Calcium Venous Ioniz Calcium Magnesium Total Bilirubin AST ALT Alkaline Phosphatase Total Creatine Kinase CK-MB (CK-2) CK and CKMB Interp Troponin I Total Protein Albumin Globulin Albumin/Globulin Ratio Urine Color Yellow Urine Appearance Clear Urine pH 8.0 Ur Specific [place] 1.017 Urine Protein 30 Urine Glucose (UA) Negative Urine Ketones Negative Urine Blood Negative Urine Nitrate Negative Urine Bilirubin Negative Urine Urobilinogen 4.0 H Urine Leukocytes Negative Urine RBC 1 Urine WBC <1 Hyaline Casts 1 Urine Mucus Occasional Ur Culture Indicated? Not indicated Blood Type Antibody Screen Crossmatch 10/02/16 10/02/16 10/02/16 09:23 09:56 10:33 WBC RBC Hgb Hct MCV MCH MCHC RDW Plt Count MPV Neut % (Auto) Lymph % (Auto) [place] % (Auto) Eos % (Auto) Baso % (Auto) Neut # (Auto) Lymph # (Auto) [place] # (Auto) Eos # (Auto) Baso # (Auto) Immature Gran % Nucleated RBC % Immature Gran # Nucleated RBCs # INR PT Patient/Control Mix Circ Anticoag PTT Patient Temperature 36 34 33 ABG pH ABG pH at Pt Temp 7.508 7.581 7.619 ABG pCO2 ABG pCO2 at Pt Temp 38.5 32.5 28.5 ABG pO2 ABG pO2 at Pt Temp 35.4 34.8 31.3 ABG HCO3 ABG Total CO2 ABG O2 Saturation ABG Base Excess ABG Sodium 138 134 L 136 VBG pH 7.493 7.535 7.557 VBG pCO2 40.4 L 37.5 L 34.6 L VBG pO2 38.0 42.8 H 41.3 H VBG HCO3 30.7 H 32.0 H 31.6 H VBG Total CO2 29.2 30.1 28.7 VBG O2 Saturation 77.1 84.3 83.2 VBG Base Excess 7.2 H 8.4 H 8.0 H Hemoglobin 7.4 L 6.6 L 7.9 L Hematocrit 23.1 L 20.8 L 24.6 L Ionized Calcium FiO2 80.00 80.00 80.00 Sodium Potassium 3.1 L 3.5 3.2 L Chloride Carbon Dioxide Anion Gap BUN Creatinine GFR Calculation BUN/Creatinine Ratio Glucose 122 H 240 H 229 H POC Glucose Calculated Osmolality Calcium Venous Ioniz Calcium 1.01 L 1.00 L 1.01 L Magnesium Total Bilirubin AST ALT Alkaline Phosphatase Total Creatine Kinase CK-MB (CK-2) CK and CKMB Interp Troponin I Total Protein Albumin Globulin Albumin/Globulin Ratio Urine Color Urine Appearance Urine pH Ur Specific [place] Urine Protein Urine Glucose (UA) Urine Ketones Urine Blood Urine Nitrate Urine Bilirubin Urine Urobilinogen Urine Leukocytes Urine RBC Urine WBC Hyaline Casts Urine Mucus Ur Culture Indicated? Blood Type Antibody Screen Crossmatch 10/02/16 10/02/16 10/02/16 10:55 11:44 11:44 WBC RBC Hgb Hct MCV MCH MCHC RDW Plt Count 46 L D MPV Neut % (Auto) Lymph % (Auto) [place] % (Auto) Eos % (Auto) Baso % (Auto) Neut # (Auto) Lymph # (Auto) [place] # (Auto) Eos # (Auto) Baso # (Auto) Immature Gran % Nucleated RBC % Immature Gran # Nucleated RBCs # INR PT Patient/Control Mix Circ Anticoag PTT Patient Temperature 35 37 ABG pH 7.518 H ABG pH at Pt Temp 7.592 7.518 ABG pCO2 36.6 ABG pCO2 at Pt Temp 29.5 36.6 ABG pO2 452.0 H ABG pO2 at Pt Temp 31.6 452.0 ABG HCO3 30.3 H ABG Total CO2 27.9 H ABG O2 Saturation 100.0 ABG Base Excess 6.5 H ABG Sodium 135 136 VBG pH 7.561 VBG pCO2 32.5 L VBG pO2 36.4 VBG HCO3 30.3 H VBG Total CO2 26.9 VBG O2 Saturation 80.0 VBG Base Excess 6.8 H Hemoglobin 8.9 L 7.4 L Hematocrit 27.6 L 23.0 L Ionized Calcium 1.25 FiO2 80.00 Sodium Potassium 3.7 3.6 Chloride Carbon Dioxide Anion Gap BUN Creatinine GFR Calculation BUN/Creatinine Ratio Glucose 244 H 227 H POC Glucose Calculated Osmolality Calcium Venous Ioniz Calcium 0.99 L Magnesium Total Bilirubin AST ALT Alkaline Phosphatase Total Creatine Kinase CK-MB (CK-2) CK and CKMB Interp Troponin I Total Protein Albumin Globulin Albumin/Globulin Ratio Urine Color Urine Appearance Urine pH Ur Specific [place] Urine Protein Urine Glucose (UA) Urine Ketones Urine Blood Urine Nitrate Urine Bilirubin Urine Urobilinogen Urine Leukocytes Urine RBC Urine WBC Hyaline Casts Urine Mucus Ur Culture Indicated? Blood Type Antibody Screen Crossmatch 10/02/16 10/02/16 10/02/16 12:50 12:50 12:50 WBC 7.5 RBC 2.26 L D Hgb 6.9 L D Hct 20.2 L MCV 89.4 MCH 31 MCHC 34.2 RDW 14.6 Plt Count 63 L D MPV 10.5 Neut % (Auto) 84.0 H Lymph % (Auto) 5.2 L [place] % (Auto) 7.8 Eos % (Auto) 1.7 Baso % (Auto) 0.1 Neut # (Auto) 6.3 Lymph # (Auto) 0.4 L [place] # (Auto) 0.6 Eos # (Auto) 0.1 Baso # (Auto) 0.0 Immature Gran % 1.2 Nucleated RBC % 0.0 Immature Gran # 0.09 Nucleated RBCs # 0.00 INR 1.4 PT Patient/Control Mix 14.8 D Circ Anticoag PTT 40.1 H Patient Temperature ABG pH ABG pH at Pt Temp ABG pCO2 ABG pCO2 at Pt Temp ABG pO2 ABG pO2 at Pt Temp ABG HCO3 ABG Total CO2 ABG O2 Saturation ABG Base Excess ABG Sodium VBG pH VBG pCO2 VBG pO2 VBG HCO3 VBG Total CO2 VBG O2 Saturation VBG Base Excess Hemoglobin Hematocrit Ionized Calcium FiO2 Sodium 143 Potassium 3.5 Chloride 102 Carbon Dioxide 30 Anion Gap 14.5 BUN 33 H Creatinine 1.40 H GFR Calculation 50 BUN/Creatinine Ratio 23.00 H Glucose 199 H POC Glucose Calculated Osmolality 297.0 Calcium 8.8 Venous Ioniz Calcium Magnesium 2.5 H Total Bilirubin 2.10 H AST 35 ALT 20 Alkaline Phosphatase 48 Total Creatine Kinase CK-MB (CK-2) CK and CKMB Interp Troponin I Total Protein 4.3 L Albumin 2.5 L Globulin 1.8 L Albumin/Globulin Ratio 1.3 Urine Color Urine Appearance Urine pH Ur Specific [place] Urine Protein Urine Glucose (UA) Urine Ketones Urine Blood Urine Nitrate Urine Bilirubin Urine Urobilinogen Urine Leukocytes Urine RBC Urine WBC Hyaline Casts Urine Mucus Ur Culture Indicated? Blood Type Antibody Screen Crossmatch 10/02/16 10/02/16 10/02/16 12:50 12:59 15:00 WBC RBC Hgb Hct MCV MCH MCHC RDW Plt Count MPV Neut % (Auto) Lymph % (Auto) [place] % (Auto) Eos % (Auto) Baso % (Auto) Neut # (Auto) Lymph # (Auto) [place] # (Auto) Eos # (Auto) Baso # (Auto) Immature Gran % Nucleated RBC % Immature Gran # Nucleated RBCs # INR PT Patient/Control Mix Circ Anticoag PTT Patient Temperature ABG pH 7.548 H 7.516 H ABG pH at Pt Temp ABG pCO2 33.1 L 34.2 L ABG pCO2 at Pt Temp ABG pO2 273.0 H 155.0 H ABG pO2 at Pt Temp ABG HCO3 30.0 H 28.7 H ABG Total CO2 27.1 H 25.5 ABG O2 Saturation 100.0 99.4 ABG Base Excess 6.1 H 4.7 H ABG Sodium VBG pH VBG pCO2 VBG pO2 VBG HCO3 VBG Total CO2 VBG O2 Saturation VBG Base Excess Hemoglobin 7.0 L 8.5 L D Hematocrit 22.0 L 26.5 L Ionized Calcium FiO2 Sodium Potassium 3.4 L 3.8 Chloride Carbon Dioxide Anion Gap BUN Creatinine GFR Calculation BUN/Creatinine Ratio Glucose 201 H 180 H POC Glucose Calculated Osmolality Calcium Venous Ioniz Calcium Magnesium Total Bilirubin AST ALT Alkaline Phosphatase Total Creatine Kinase 192 CK-MB (CK-2) 13.0 H CK and CKMB Interp 6.8 Troponin I 3.500 H Total Protein Albumin Globulin Albumin/Globulin Ratio Urine Color Urine Appearance Urine pH Ur Specific [place] Urine Protein Urine Glucose (UA) Urine Ketones Urine Blood Urine Nitrate Urine Bilirubin Urine Urobilinogen Urine Leukocytes Urine RBC Urine WBC Hyaline Casts Urine Mucus Ur Culture Indicated? Blood Type Antibody Screen Crossmatch Quality Measures - VTE Contraindication to Pharmacological VTE Prophylaxis: High Risk of Bleeding - Stroke Onset of Symptoms Date: 09/05/16 Onset of Symptoms Time: 15:30 Symptom Onset Unknown: No
--- NOTE | 2016-10-02 17:01 | Pulmonology Progress Note ---
Pulmonary - PN: Subj Interval history: This 86-year-old white male has congestive heart failure due to aortic stenosis. Also has atherosclerotic heart disease with previous coronary bypass surgery. Needs to have his IV aortic valve replaced. He has a right pleural effusion. His chest x-ray looks a little bit better today as far as the pulmonary edema is concerned. However we gave him Lasix yesterday and his creatinine has risen a little more. I think we would do best to get the right pleural fluid drained in preparation for surgery. Will ask interventional radiology to do this since it appears to be loculated laterally and would be safely done with ultrasound guidance. Patient is not sleeping well. Should tolerate some Ativan at bedtime. Quite anxious. I should note that the reason he has pleural fluid on the right and not the left is that he has had a previous left decortication. 09/18/2016 we have tried to diurese him and it has not been very successful. His creatinine has risen. He had a right thoracentesis with removal of 800 mL of fluid but he had his CT scan yesterday still showed significant right effusion. The pleural fluid is a transudate. Certainly think this is due to congestive heart failure, due to his aortic stenosis. It will be very difficult to treat his heart failure without the valve being replaced. However he is at high risk for surgery given his fragile state and acute kidney injury with Lasix and low cardiac output. Will ask nephrology to see if they can help us with this. Patient at present is about the same as far as her shortness of breath. He is empirically on antibiotics. 09/19/2016 he continues to complain of dyspnea. Primarily says he has trouble breathing through his nose. He is on 2 different nose sprays in his nasal passages appear open on my exam. I think is primarily short of breath related to his congestive heart failure/aortic stenosis. Renal function is a little better. Perhaps getting further out from contrast studies is helping. We do need to try to diurese him further. Nephrology is following as well. 09/20/2016 patient feels a little better sitting up in the chair. However his chest x-ray shows that the right pleural effusion has increased in size. Having a difficult time diuresing him with his creatinine 2.8. Would recommend putting a pleural catheter in the right side to drain this. Hopefully this will help us prep him for possible aortic valve replacement. The pleural effusion is due to congestive heart failure, however they are having a difficult time diuresing him. 09/21/2016 breathing is better since getting the pleural catheter. Chest x-ray today pending. Renal function getting a little better. Hopefully can plan aortic valve surgery soon. 09/22/2016 patient feels a little better. Should be able to tolerate nasal biprong's now. Chest x-ray shows the right pleural effusion has been evacuated. Put out about 200 mL from chest tube since yesterday morning. Need to keep it in for now. Renal function reports are pending from this morning. He does appear to be holding his own layer. Still has some peripheral edema and we need to bump with Lasix again. In my opinion he will need to have aortic valve surgery in order to get back to any meaningful life at home. Otherwise he will be a bed to chair existence. Certainly some risk involved as far as postoperative renal function and/or respiratory failure, but I favor proceeding with surgery next week. 09/23/2016 put out another 400 mL from his chest tube yesterday. Still has peripheral edema. We need to diurese him further. Renal insufficiency makes it difficult. Dr. Mehta wants to do a CT angiogram to further evaluate his aortic arch. His creatinine is down to 2.3. I feel sure further contrast would bump his creatinine up above 3 again and perhaps worse. I do think he would be better off having surgery then not having surgery. I do not think he can go home and come back as he still has a pleural catheter in. We may consider doing a pleurodesis, which is unusual for a transudative type effusion , and only works about half the time in this situation. 09/24/2016 his right pleural catheter came out during the night. Chest x-ray this morning shows the right lung well expanded. He does have some interstitial edema and some interstitial scarring. Creatinine has come down further to 2.1. We need to try to diurese him further. Would not replace the pleural catheter at this point. 09/25/2016 patient needs to be more active. Creatinine is come down to 1.9. Plans are for a CT angiogram of the chest tomorrow. Will need to watch renal function closely after that. Since the CT is planned I will not order chest x- ray 09/26/2016 CT angiogram was canceled because creatinine was up to 2.1. Defer to nephrology, cardiovascular surgery, and radiology on plans there. His chest x- ray shows recurrence of right pleural effusion. Not as much as before but still there. We are trying to diurese him as much as his kidneys will allow. He still has peripheral edema. 09/27/[address]ogram today. Dr. Mehta to review to decide about surgery. Creatinine was 1.9 this morning. Patient had episode of increased dyspnea last night. Did get better with 1 mg of morphine. If he is to have surgery in the next couple of days, then the right pleural fluid could be drained at that time. If surgery is delayed for several days to follow renal function, then he should have the right pleural catheter replaced. 09/28/2016 patient feels better today. Sleeping better. Less dyspneic. Chest CT angiogram done yesterday and creatinine remains 1.9. Dr. Mehta to review the CT and make plans as far as surgery is concerned. Patient is anxious to go ahead with the surgery. 09/29/2016 patient sleeping in recliner. Dyspnea is improved. Renal function has improved with creatinine 1.7. Plans are for surgery Sunday with coronary bypass surgery of one vessel and aortic valve replacement. Pleural drainage will take care of the right effusion at that time. Stable from pulmonary standpoint. Please call pulmonary bonderizer this weekend if needed. 10/02/16 Pt seen in CVR, on vent. C.O. 3.6 L. PCW 25. ABG's ok. Wean per protocol. CXR OK. Exam (Progress Note) - Constitutional Vitals: Period Temp Pulse Resp BP Sys/[place] Pulse Ox Last 24 Hr 94.6 F-98.5 F 68-98 10-20 91-130/40-64 91-100 Exam: Patient's sedated, comfortable flat in bed. ET in place, on vent. Pupils react to light. Neck supple no bruits. Chest shows a few basilar crackles at the right base. Dullness at right base to percussion. Heart normal rate rhythm grade 1/6 systolic murmur at right base. Abdomen soft nontender no masses. Bowel sounds present. Extremities no clubbing or cyanosis. 1+ edema. Calves nontender. Results - Labs CBC & BMP: 10/02/16 12:50 10/02/16 12:50 Lab Results: I have reviewed the past 24 hour labs - Diagnostic Findings Procedure: Chest x-ray: image reviewed by me (ET good position, R chest tube, lungs mostly clear.) Assessment and Plan (1) Syncope Status: Acute Assessment and plan: Syncope likely due to cardiac causes related to his aortic stenosis. 09/15/16 likely due to his aortic stenosis. 09/18/2016 again the syncope is likely due to his aortic stenosis. 09/20/2016 no symptoms of postural syncope at this time Current Visit: Yes (2) Chronic kidney disease Status: Chronic Assessment and plan: Creatinine is 2.1. He has had some renal insufficiency for quite some time related to vascular disease and diabetes. At present I think he is ahead on fluid. I will bump him with Lasix. 09/15/16 creatinine up to 2.3 after a dose of Lasix. Afraid to diurese any more vigorously at present. Asking interventional radiology to drain the loculated right effusion. This should help getting prepped for aortic valve replacement. 09/18/2016 creatinine up to 2.8. Difficulty mobilizing right pleural effusion fluid 09/19/2016 renal function is a little better today. Creatinine down to 2.4. May have had a bump in creatinine related to his contrast last week. 09/20/2016 creatinine up to 2.8. 09/21/2016 creatinine down to 2.5. Improving. Hopefully getting further out from contrast 09/22/2016 chemistries pending today. Hopefully can get creatinine back down to around 2. 09/23/2016 creatinine down to 2.3. This despite giving diuretics. 09/24/2016 creatinine down to 2.1. 09/25/2016 creatinine down to 1.9. This is about baseline for him. 09/26/2016 creatinine 2.1 today. Nephrology following. 09/27/2016 renal function about baseline for him at 1.9 creatinine. Likely will see a rise over the next couple of days due to the contrast today. 09/28/2016 creatinine 1.9 and appear stable despite getting repeat contrast yesterday 09/29/2016 creatinine down to 1.7 despite contrast and diuretics. 10/02 Renal function intact now. Cr 1.5 this AM. Current Visit: Yes (3) Coronary artery disease Status: Chronic Assessment and plan: Previous coronary bypass surgery with additional findings at catheterization this admission. 09/25/2016 patient not having any active angina. 09/28/2016 previous coronary bypass surgery. 09/29/1969 will have 1 of coronary bypass is redone. 10/02/16 Had patch bovine graft of one of previous CABG vein grafts. Current Visit: Yes Qualifiers: Coronary Disease-Associated Artery/Lesion type: jamul artery [place] vs. transplanted heart: jamul heart Associated angina: without angina Qualified Code(s): I25.10 - Atherosclerotic heart disease of jamul coronary artery without angina pectoris (4) Pulmonary hypertension Status: Chronic Assessment and plan: This was not quantified on the echo but is likely to be secondary to his left heart disease with aortic stenosis. 09/15/16 this should be due to his aortic stenosis and congestive heart failure. 09/18/2016 secondary to his left heart disease. 09/20/2016 this is due to his left heart disease. 09/21/2016 due to left heart disease. 09/22/2016 this is secondary to his left heart disease, primarily aortic stenosis 09/23/2016 this is secondary to his aortic stenosis. 09/24/2016 secondary to left heart disease. 09/27/2016 again this is felt to be secondary to his left heart disease primarily aortic stenosis 09/28/2016 apparently due to left heart disease/aortic stenosis 09/29/2016 again this is due to left heart disease. 10/02/16 PA pressures lower since AVR. Current Visit: Yes (5) Severe aortic stenosis Status: Chronic Assessment and plan: Has severe aortic stenosis by echo and catheterization. Likely the possible cause of his congestive heart failure and pulmonary hypertension. 09/15/16 hopefully can have surgery when we get him tuned up. 09/18/2016 will need surgery if he can tolerate it. 09/19/2016 hopefully we can get him tuned up where he can tolerate AVR. 09/20/2016 aortic valve surgery is indicated when we can get him tuned up for it. 09/21/2016 need surgery. Trying to get him tuned up for that. If renal function is stable and right pleural effusion totally evacuated, then hopefully could plan sign. 09/22/2016 x-ray is better. Less dyspnea. If renal function is stable, I would be in favor of proceeding with surgery next week. 09/23/16 ideally should be repaired surgically or replaced. He has some chronic bronchitis but does not have severe COPD. 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 09/24/2016 again trying to tune him up so he can have his aortic valve replaced or repaired. 09/25/2016 trying to get him to the point where he can have his aortic valve replaced or repaired. Needs more physical activity. 09/26/2016 continuing to try to get him where he can tolerate aortic valve surgery. 09/27/[address] done this morning for Dr. Mehta to review. 09/28/2016 Dr. Mehta to review CT and decide whether to proceed with aortic valve replacement or repair 09/29/2016 this has become severe and is causing congestive heart failure. Has well-maintained LV ejection fraction. Set up for surgery Sunday to replace the valve 10/02/16 Post AVR. Weaning from vent will take overnight probably. Current Visit: Yes (6) Diabetes mellitus Status: Chronic Assessment and plan: Has some hyperglycemia. Adding sliding scale. 09/15/16 glucoses in the 140-200 range. 09/18/2016 glucoses look okay. 09/19/2016 glucoses are fairly well controlled. 09/20/2016 glucoses look better. 09/21/2016 still mildly elevated glucoses. 09/22/2016 glucoses fairly well controlled. 09/23/2016 blood sugars are okay. 09/24/2016 glucoses are a little high. Adjust insulin, increase Lantus to 15 units. 09/25/2016 glucoses a little better. 09/26/2016 blood sugars are acceptable. 09/27/2016 blood sugars running in the 85-90 range. 09/28/2016 glucoses well controlled. 09/29/2016 blood sugars fairly well controlled. 10/02/16 Glucoses stable on SS insulin. Current Visit: Yes Qualifiers: Diabetes mellitus type: type 2 (7) Acute bronchitis Status: Resolved Assessment and plan: Based on the change in sputum color and elevated white count 16,000 think is reasonable to cover him with antibiotics for this. Will use Atrovent for bronchodilators. 09/15/16 empirically on antibiotics and Atrovent. I think his main problem respiratory escobar is congestive heart failure related to his aortic stenosis. Would not delay surgery for bronchitis in this situation 09/18/2016 on empiric antibiotics. 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 It is sensitive to Cipro. I will change him to oral Cipro. 09/20/2016 I do not hear any rhonchi. He is on oral Cipro. 09/21/2016 bronchitis is improved. Probably needs a couple more days of Cipro. 09/22/2016 he has had a week's worth of antibiotics. Bronchitis is quiet now. We will stop Cipro. 09/23/2016 he has completed antibiotics. 09/25/2016 he is not coughing at present. Current Visit: Yes
[2016-10-02 17:25] LABS: ABG Base Excess 2.6 MMOL/L (-2.5-2.5); ABG HCO3 26.8 MMOL/L (20-26); ABG Oxygen Saturation 98.5 % (95-100); ABG PCO2 45.3 MM HG (35-48); ABG PH 7.398 (7.35-7.45); ABG TCO2 25.1 MMOL/L (23-27); Glucose Heart Surgery 158 MG/DL (74-106); Hematocrit Heart Surgery 34.3 PERCENT (42-52); Hemoglobin Heart Surgery 11.1 G/DL (14.0-18.0); Potassium Heart/CVR 4.6 MMOL/L (3.5-5.1)
[2016-10-02 18:16] LABS: ABG Base Excess 2.8 MMOL/L (-2.5-2.5); ABG HCO3 26.9 MMOL/L (20-26); ABG Oxygen Saturation 97.5 % (95-100); ABG PCO2 52.9 MM HG (35-48); ABG PH 7.355 (7.35-7.45); ABG PO2 96.4 MM HG (80-95); ABG TCO2 26.3 MMOL/L (23-27); Glucose Heart Surgery 136 MG/DL (74-106); Hematocrit Heart Surgery 37.1 PERCENT (42-52); Potassium Heart/CVR 4.2 MMOL/L (3.5-5.1)
[2016-10-02] MEDS ORDERED: FUROSEMIDE 40 MG/4 ML VIAL IV ONE (19:42)
[2016-10-02] MEDS: CEFUROXIME INJ 1,500 MG in SODIUM CHLORIDE 0.9% 100 ML IV SCH (20:43)
[2016-10-02 21:07] LABS: ABG Base Excess 3.3 MMOL/L (-2.5-2.5); ABG HCO3 27.4 MMOL/L (20-26); ABG PCO2 44.1 MM HG (35-48); ABG PH 7.415 (7.35-7.45); ABG TCO2 25.3 MMOL/L (23-27); Glucose Heart Surgery 83 MG/DL (74-106); Hematocrit Heart Surgery 34.3 PERCENT (42-52); Hemoglobin Heart Surgery 11.1 G/DL (14.0-18.0); Potassium Heart/CVR 4.1 MMOL/L (3.5-5.1)
[2016-10-02] MEDS: MORPHINE 2 MG/1 ML SYRINGE IV PRN (21:47)
[2016-10-02 21:57] LABS: CKMB % 7.2 %
[2016-10-02 22:02] LABS: Troponin I Only 6.43 NG/ML (0.00-0.045)
[2016-10-02] MEDS: FUROSEMIDE 40 MG/4 ML VIAL IV PRN (22:43)
[2016-10-03] MEDS: IPRATROPIUM 500 MCG/2.5 ML NEB RESP TX SCH ×5 (00:02→23:51)
[2016-10-03 00:10] LABS: ABG HCO3 27.5 MMOL/L (20-26); ABG Oxygen Saturation 98.3 % (95-100); ABG PCO2 41.7 MM HG (35-48); ABG PH 7.437 (7.35-7.45); ABG TCO2 28.8 MMOL/L (23-27); Glucose Heart Surgery 81 MG/DL (74-106); Hemoglobin Heart Surgery 12.2 G/DL (14.0-18.0); Potassium Heart/CVR 4.5 MMOL/L (3.5-5.1)
[2016-10-03] MEDS: MORPHINE 10 MG/1 ML VIAL IV PRN ×2 (00:29→03:13)
[2016-10-03] MEDS: FUROSEMIDE 40 MG/4 ML VIAL IV PRN (01:19)
[2016-10-03 04:21] LABS: ABG Base Excess 2.7 MMOL/L (-2.5-2.5); ABG HCO3 27.3 MMOL/L (20-26); ABG Oxygen Saturation 98.1 % (95-100); ABG PCO2 42.3 MM HG (35-48); ABG PH 7.428 (7.35-7.45); ABG PO2 117.2 MM HG (80-95); ABG TCO2 28.6 MMOL/L (23-27); Glucose Heart Surgery 96 MG/DL (74-106); Hemoglobin Heart Surgery 12.2 G/DL (14.0-18.0); Potassium Heart/CVR 4.6 MMOL/L (3.5-5.1)
[2016-10-03 04:25] LABS: Basophils % 0.1 % (0.0-0.8); Hematocrit 34.2 VOL% (42.0-52.0); Hemoglobin 11.6 GM/DL (14.0-18.0); Immature Granulocytes % 0.3 %; Immature Granulocytes Absolute 0.04 #; Lymphocytes # 0.5 10*3/uL (1.4-4.0); Lymphocytes % 4.5 % (21.2-54.2); Mean Corpuscular HGB Conc 33.9 GM/DL (32-36); Mean Corpuscular Hemoglobin 30 PG (27-34); Mean Corpuscular Volume 88.4 FL (87-102); Mean Platelet Volume 10.7 FL (9.6-12.0); Monocytes # 0.6 10*3/uL (0.11-0.8); Neutrophils # 10.4 10*3/uL (1.4-7.4); Neutrophils % 90.1 % (38.7-73.9); Red Cell Distribution Width 15.1 % (9.3-17.3); White Blood Count 11.5 T/CUMM (4-12)
[2016-10-03 04:30] LABS: Red Blood Count 3.87 MC/CUMM (3.8-5.5)
[2016-10-03 04:31] LABS: Platelet Count 43 T/CUMM (130-400)
[2016-10-03 05:09] LABS: Bilirubin,Total 1.3 MG/DL (0.2-1.0); Calcium 8.3 MG/DL (8.5-10.1)
[2016-10-03 05:10] LABS: Albumin 2.8 G/DL (3.4-5.0); Bilirubin,Direct 0.6 MG/DL (0.0-0.20); Magnesium 2.3 MG/DL (1.8-2.4); Total Protein 4.9 G/DL (6.4-8.3)
[2016-10-03 05:11] LABS: Potassium 4.6 MMOL/L (3.5-5.1)
[2016-10-03 05:16] LABS: CKMB % 9.3 %
[2016-10-03 05:20] LABS: Band Neutrophils 2 % (0-10); Lymphocytes 4 % (20-55); Segmented Neutrophils 90 % (50-85); Total Cells Counted 100
[2016-10-03 05:21] LABS: Hypochromasia 2+; Platelet Estimate Decreased
[2016-10-03 05:22] LABS: Troponin I Only 6.82 NG/ML (0.00-0.045)
--- NOTE | 2016-10-03 06:23 | Cardiothoracic Progress Note ---
Cardiothoracic Subjective Interval history: Patient is intubated on a ventilator. He has awakened and moves all extremities to command. He appears to be about ready to be weaned from the ventilator. Arterial blood gases have been excellent thus far. Cardiac parameters have been stable with good blood pressure and stable heart rate between 90 and 100. He remains in sinus rhythm. Urine output has been adequate and creatinine is 1.9 this morning up from 1.6 preop. Chest tube drainage has been minimal but he does have a small air leak from his chest tube so I am going to leave them in place for now. I think that we will attempt to wean him from the ventilator today as he tolerates with Dr. Lawson direction. Going to start him on a Lasix infusion which hopefully we will only need for a day or so in order to keep his urine output adequate. Overall his progress appears satisfactory for postoperative day 1. Exam (Progress Note) - Constitutional Vitals: Period Temp Pulse Resp BP Sys/Hurtado Pulse Ox Last 24 Hr 94.6 F-98.7 F 68-110 10-16 91-155/40-63 97-100 Result/EKG - Labs CBC & BMP: 10/03/16 04:15 10/03/16 04:15 Labs: Laboratory Results - last 24 hr 10/01/16 10/02/16 10/02/16 03:42 07:00 07:31 WBC RBC Hgb Hct MCV MCH MCHC RDW Plt Count 76 L D MPV Neut % (Auto) Lymph % (Auto) Benson % (Auto) Eos % (Auto) Baso % (Auto) Neut # (Auto) Lymph # (Auto) Benson # (Auto) Eos # (Auto) Baso # (Auto) Total Counted Immature Gran % Nucleated RBC % Immature Gran # Segmented Neutrophils Band Neutrophils Lymphocytes Monocytes Nucleated RBCs # Platelet Estimate Hypochromasia INR PT Patient/Control Mix Circ Anticoag PTT Patient Temperature ABG pH ABG pH at Pt Temp ABG pCO2 ABG pCO2 at Pt Temp ABG pO2 ABG pO2 at Pt Temp ABG HCO3 ABG Total CO2 ABG O2 Saturation ABG Base Excess ABG Sodium VBG pH VBG pCO2 VBG pO2 VBG HCO3 VBG Total CO2 VBG O2 Saturation VBG Base Excess Hemoglobin Hematocrit Potassium Glucose Ionized Calcium FiO2 Sodium Chloride Carbon Dioxide Anion Gap BUN Creatinine GFR Calculation BUN/Creatinine Ratio POC Glucose Calculated Osmolality Calcium Venous Ioniz Calcium Magnesium Total Bilirubin Direct Bilirubin AST ALT Alkaline Phosphatase Total Creatine Kinase CK-MB (CK-2) CK and CKMB Interp Troponin I Total Protein Albumin Globulin Albumin/Globulin Ratio Urine Color Yellow Urine Appearance Clear Urine pH 8.0 Ur Specific [place] 1.017 Urine Protein 30 Urine Glucose (UA) Negative Urine Ketones Negative Urine Blood Negative Urine Nitrate Negative Urine Bilirubin Negative Urine Urobilinogen 4.0 H Urine Leukocytes Negative Urine RBC 1 Urine WBC <1 Hyaline Casts 1 Urine Mucus Occasional Ur Culture Indicated? Not indicated Blood Type O POSITIVE Antibody Screen Negative Crossmatch See Detail 10/02/16 10/02/16 10/02/16 07:31 09:23 09:56 WBC RBC Hgb Hct MCV MCH MCHC RDW Plt Count MPV Neut % (Auto) Lymph % (Auto) Benson % (Auto) Eos % (Auto) Baso % (Auto) Neut # (Auto) Lymph # (Auto) Benson # (Auto) Eos # (Auto) Baso # (Auto) Total Counted Immature Gran % Nucleated RBC % Immature Gran # Segmented Neutrophils Band Neutrophils Lymphocytes Monocytes Nucleated RBCs # Platelet Estimate Hypochromasia INR PT Patient/Control Mix Circ Anticoag PTT Patient Temperature 37 36 34 ABG pH 7.418 ABG pH at Pt Temp 7.418 7.508 7.581 ABG pCO2 50.2 H ABG pCO2 at Pt Temp 50.2 38.5 32.5 ABG pO2 251.0 H ABG pO2 at Pt Temp 251.0 35.4 34.8 ABG HCO3 30.8 H ABG Total CO2 30.1 H ABG O2 Saturation 100.0 ABG Base Excess 6.9 H ABG Sodium 140 138 134 L VBG pH 7.493 7.535 VBG pCO2 40.4 L 37.5 L VBG pO2 38.0 42.8 H VBG HCO3 30.7 H 32.0 H VBG Total CO2 29.2 30.1 VBG O2 Saturation 77.1 84.3 VBG Base Excess 7.2 H 8.4 H Hemoglobin 8.2 L 7.4 L 6.6 L Hematocrit 25.5 L 23.1 L 20.8 L Potassium 2.9 L 3.1 L 3.5 Glucose 113 H 122 H 240 H Ionized Calcium 1.14 L FiO2 80.00 80.00 Sodium Chloride Carbon Dioxide Anion Gap BUN Creatinine GFR Calculation BUN/Creatinine Ratio POC Glucose Calculated Osmolality Calcium Venous Ioniz Calcium 1.01 L 1.00 L Magnesium Total Bilirubin Direct Bilirubin AST ALT Alkaline Phosphatase Total Creatine Kinase CK-MB (CK-2) CK and CKMB Interp Troponin I Total Protein Albumin Globulin Albumin/Globulin Ratio Urine Color Urine Appearance Urine pH Ur Specific [place] Urine Protein Urine Glucose (UA) Urine Ketones Urine Blood Urine Nitrate Urine Bilirubin Urine Urobilinogen Urine Leukocytes Urine RBC Urine WBC Hyaline Casts Urine Mucus Ur Culture Indicated? Blood Type Antibody Screen Crossmatch 10/02/16 10/02/16 10/02/16 10:33 10:55 11:44 WBC RBC Hgb Hct MCV MCH MCHC RDW Plt Count 46 L D MPV Neut % (Auto) Lymph % (Auto) Benson % (Auto) Eos % (Auto) Baso % (Auto) Neut # (Auto) Lymph # (Auto) Benson # (Auto) Eos # (Auto) Baso # (Auto) Total Counted Immature Gran % Nucleated RBC % Immature Gran # Segmented Neutrophils Band Neutrophils Lymphocytes Monocytes Nucleated RBCs # Platelet Estimate Hypochromasia INR PT Patient/Control Mix Circ Anticoag PTT Patient Temperature 33 35 ABG pH ABG pH at Pt Temp 7.619 7.592 ABG pCO2 ABG pCO2 at Pt Temp 28.5 29.5 ABG pO2 ABG pO2 at Pt Temp 31.3 31.6 ABG HCO3 ABG Total CO2 ABG O2 Saturation ABG Base Excess ABG Sodium 136 135 VBG pH 7.557 7.561 VBG pCO2 34.6 L 32.5 L VBG pO2 41.3 H 36.4 VBG HCO3 31.6 H 30.3 H VBG Total CO2 28.7 26.9 VBG O2 Saturation 83.2 80.0 VBG Base Excess 8.0 H 6.8 H Hemoglobin 7.9 L 8.9 L Hematocrit 24.6 L 27.6 L Potassium 3.2 L 3.7 Glucose 229 H 244 H Ionized Calcium FiO2 80.00 80.00 Sodium Chloride Carbon Dioxide Anion Gap BUN Creatinine GFR Calculation BUN/Creatinine Ratio POC Glucose Calculated Osmolality Calcium Venous Ioniz Calcium 1.01 L 0.99 L Magnesium Total Bilirubin Direct Bilirubin AST ALT Alkaline Phosphatase Total Creatine Kinase CK-MB (CK-2) CK and CKMB Interp Troponin I Total Protein Albumin Globulin Albumin/Globulin Ratio Urine Color Urine Appearance Urine pH Ur Specific [place] Urine Protein Urine Glucose (UA) Urine Ketones Urine Blood Urine Nitrate Urine Bilirubin Urine Urobilinogen Urine Leukocytes Urine RBC Urine WBC Hyaline Casts Urine Mucus Ur Culture Indicated? Blood Type Antibody Screen Crossmatch 10/02/16 10/02/16 10/02/16 11:44 12:50 12:50 WBC 7.5 RBC 2.26 L D Hgb 6.9 L D Hct 20.2 L MCV 89.4 MCH 31 MCHC 34.2 RDW 14.6 Plt Count 63 L D MPV 10.5 Neut % (Auto) 84.0 H Lymph % (Auto) 5.2 L Benson % (Auto) 7.8 Eos % (Auto) 1.7 Baso % (Auto) 0.1 Neut # (Auto) 6.3 Lymph # (Auto) 0.4 L Benson # (Auto) 0.6 Eos # (Auto) 0.1 Baso # (Auto) 0.0 Total Counted Immature Gran % 1.2 Nucleated RBC % 0.0 Immature Gran # 0.09 Segmented Neutrophils Band Neutrophils Lymphocytes Monocytes Nucleated RBCs # 0.00 Platelet Estimate Hypochromasia INR 1.4 PT Patient/Control Mix 14.8 D Circ Anticoag PTT 40.1 H Patient Temperature 37 ABG pH 7.518 H ABG pH at Pt Temp 7.518 ABG pCO2 36.6 ABG pCO2 at Pt Temp 36.6 ABG pO2 452.0 H ABG pO2 at Pt Temp 452.0 ABG HCO3 30.3 H ABG Total CO2 27.9 H ABG O2 Saturation 100.0 ABG Base Excess 6.5 H ABG Sodium 136 VBG pH VBG pCO2 VBG pO2 VBG HCO3 VBG Total CO2 VBG O2 Saturation VBG Base Excess Hemoglobin 7.4 L Hematocrit 23.0 L Potassium 3.6 Glucose 227 H Ionized Calcium 1.25 FiO2 Sodium Chloride Carbon Dioxide Anion Gap BUN Creatinine GFR Calculation BUN/Creatinine Ratio POC Glucose Calculated Osmolality Calcium Venous Ioniz Calcium Magnesium Total Bilirubin Direct Bilirubin AST ALT Alkaline Phosphatase Total Creatine Kinase CK-MB (CK-2) CK and CKMB Interp Troponin I Total Protein Albumin Globulin Albumin/Globulin Ratio Urine Color Urine Appearance Urine pH Ur Specific [place] Urine Protein Urine Glucose (UA) Urine Ketones Urine Blood Urine Nitrate Urine Bilirubin Urine Urobilinogen Urine Leukocytes Urine RBC Urine WBC Hyaline Casts Urine Mucus Ur Culture Indicated? Blood Type Antibody Screen Crossmatch 10/02/16 10/02/16 10/02/16 12:50 12:50 12:59 WBC RBC Hgb Hct MCV MCH MCHC RDW Plt Count MPV Neut % (Auto) Lymph % (Auto) Benson % (Auto) Eos % (Auto) Baso % (Auto) Neut # (Auto) Lymph # (Auto) Benson # (Auto) Eos # (Auto) Baso # (Auto) Total Counted Immature Gran % Nucleated RBC % Immature Gran # Segmented Neutrophils Band Neutrophils Lymphocytes Monocytes Nucleated RBCs # Platelet Estimate Hypochromasia INR PT Patient/Control Mix Circ Anticoag PTT Patient Temperature ABG pH 7.548 H ABG pH at Pt Temp ABG pCO2 33.1 L ABG pCO2 at Pt Temp ABG pO2 273.0 H ABG pO2 at Pt Temp ABG HCO3 30.0 H ABG Total CO2 27.1 H ABG O2 Saturation 100.0 ABG Base Excess 6.1 H ABG Sodium VBG pH VBG pCO2 VBG pO2 VBG HCO3 VBG Total CO2 VBG O2 Saturation VBG Base Excess Hemoglobin 7.0 L Hematocrit 22.0 L Potassium 3.5 3.4 L Glucose 199 H 201 H Ionized Calcium FiO2 Sodium 143 Chloride 102 Carbon Dioxide 30 Anion Gap 14.5 BUN 33 H Creatinine 1.40 H GFR Calculation 50 BUN/Creatinine Ratio 23.00 H POC Glucose Calculated Osmolality 297.0 Calcium 8.8 Venous Ioniz Calcium Magnesium 2.5 H Total Bilirubin 2.10 H Direct Bilirubin AST 35 ALT 20 Alkaline Phosphatase 48 Total Creatine Kinase 192 CK-MB (CK-2) 13.0 H CK and CKMB Interp 6.8 Troponin I 3.500 H Total Protein 4.3 L Albumin 2.5 L Globulin 1.8 L Albumin/Globulin Ratio 1.3 Urine Color Urine Appearance Urine pH Ur Specific [place] Urine Protein Urine Glucose (UA) Urine Ketones Urine Blood Urine Nitrate Urine Bilirubin Urine Urobilinogen Urine Leukocytes Urine RBC Urine WBC Hyaline Casts Urine Mucus Ur Culture Indicated? Blood Type Antibody Screen Crossmatch 10/02/16 10/02/16 10/02/16 14:14 15:00 16:13 WBC RBC Hgb Hct MCV MCH MCHC RDW Plt Count MPV Neut % (Auto) Lymph % (Auto) Benson % (Auto) Eos % (Auto) Baso % (Auto) Neut # (Auto) Lymph # (Auto) Benson # (Auto) Eos # (Auto) Baso # (Auto) Total Counted Immature Gran % Nucleated RBC % Immature Gran # Segmented Neutrophils Band Neutrophils Lymphocytes Monocytes Nucleated RBCs # Platelet Estimate Hypochromasia INR PT Patient/Control Mix Circ Anticoag PTT Patient Temperature ABG pH 7.516 H ABG pH at Pt Temp ABG pCO2 34.2 L ABG pCO2 at Pt Temp ABG pO2 155.0 H ABG pO2 at Pt Temp ABG HCO3 28.7 H ABG Total CO2 25.5 ABG O2 Saturation 99.4 ABG Base Excess 4.7 H ABG Sodium VBG pH VBG pCO2 VBG pO2 VBG HCO3 VBG Total CO2 VBG O2 Saturation VBG Base Excess Hemoglobin 8.5 L D Hematocrit 26.5 L Potassium 3.8 Glucose 180 H Ionized Calcium FiO2 Sodium Chloride Carbon Dioxide Anion Gap BUN Creatinine GFR Calculation BUN/Creatinine Ratio POC Glucose 236 H 210 H Calculated Osmolality Calcium Venous Ioniz Calcium Magnesium Total Bilirubin Direct Bilirubin AST ALT Alkaline Phosphatase Total Creatine Kinase CK-MB (CK-2) CK and CKMB Interp Troponin I Total Protein Albumin Globulin Albumin/Globulin Ratio Urine Color Urine Appearance Urine pH Ur Specific [place] Urine Protein Urine Glucose (UA) Urine Ketones Urine Blood Urine Nitrate Urine Bilirubin Urine Urobilinogen Urine Leukocytes Urine RBC Urine WBC Hyaline Casts Urine Mucus Ur Culture Indicated? Blood Type Antibody Screen Crossmatch 10/02/16 10/02/16 10/02/16 17:03 17:16 18:03 WBC RBC Hgb Hct MCV MCH MCHC RDW Plt Count MPV Neut % (Auto) Lymph % (Auto) Benson % (Auto) Eos % (Auto) Baso % (Auto) Neut # (Auto) Lymph # (Auto) Benson # (Auto) Eos # (Auto) Baso # (Auto) Total Counted Immature Gran % Nucleated RBC % Immature Gran # Segmented Neutrophils Band Neutrophils Lymphocytes Monocytes Nucleated RBCs # Platelet Estimate Hypochromasia INR PT Patient/Control Mix Circ Anticoag PTT Patient Temperature ABG pH 7.398 7.355 ABG pH at Pt Temp ABG pCO2 45.3 52.9 H ABG pCO2 at Pt Temp ABG pO2 117.0 H 96.4 H ABG pO2 at Pt Temp ABG HCO3 26.8 H 26.9 H ABG Total CO2 25.1 26.3 ABG O2 Saturation 98.5 97.5 ABG Base Excess 2.6 H 2.8 H ABG Sodium VBG pH VBG pCO2 VBG pO2 VBG HCO3 VBG Total CO2 VBG O2 Saturation VBG Base Excess Hemoglobin 11.1 L D 12.0 L Hematocrit 34.3 L 37.1 L Potassium 4.6 4.2 Glucose 158 H 136 H Ionized Calcium FiO2 Sodium Chloride Carbon Dioxide Anion Gap BUN Creatinine GFR Calculation BUN/Creatinine Ratio POC Glucose 159 H Calculated Osmolality Calcium Venous Ioniz Calcium Magnesium Total Bilirubin Direct Bilirubin AST ALT Alkaline Phosphatase Total Creatine Kinase CK-MB (CK-2) CK and CKMB Interp Troponin I Total Protein Albumin Globulin Albumin/Globulin Ratio Urine Color Urine Appearance Urine pH Ur Specific [place] Urine Protein Urine Glucose (UA) Urine Ketones Urine Blood Urine Nitrate Urine Bilirubin Urine Urobilinogen Urine Leukocytes Urine RBC Urine WBC Hyaline Casts Urine Mucus Ur Culture Indicated? Blood Type Antibody Screen Crossmatch 10/02/16 10/02/16 10/02/16 19:05 19:55 20:59 WBC RBC Hgb Hct MCV MCH MCHC RDW Plt Count MPV Neut % (Auto) Lymph % (Auto) Benson % (Auto) Eos % (Auto) Baso % (Auto) Neut # (Auto) Lymph # (Auto) Benson # (Auto) Eos # (Auto) Baso # (Auto) Total Counted Immature Gran % Nucleated RBC % Immature Gran # Segmented Neutrophils Band Neutrophils Lymphocytes Monocytes Nucleated RBCs # Platelet Estimate Hypochromasia INR PT Patient/Control Mix Circ Anticoag PTT Patient Temperature ABG pH ABG pH at Pt Temp ABG pCO2 ABG pCO2 at Pt Temp ABG pO2 ABG pO2 at Pt Temp ABG HCO3 ABG Total CO2 ABG O2 Saturation ABG Base Excess ABG Sodium VBG pH VBG pCO2 VBG pO2 VBG HCO3 VBG Total CO2 VBG O2 Saturation VBG Base Excess Hemoglobin Hematocrit Potassium Glucose Ionized Calcium FiO2 Sodium Chloride Carbon Dioxide Anion Gap BUN Creatinine GFR Calculation BUN/Creatinine Ratio POC Glucose 104 106 74 Calculated Osmolality Calcium Venous Ioniz Calcium Magnesium Total Bilirubin Direct Bilirubin AST ALT Alkaline Phosphatase Total Creatine Kinase CK-MB (CK-2) CK and CKMB Interp Troponin I Total Protein Albumin Globulin Albumin/Globulin Ratio Urine Color Urine Appearance Urine pH Ur Specific [place] Urine Protein Urine Glucose (UA) Urine Ketones Urine Blood Urine Nitrate Urine Bilirubin Urine Urobilinogen Urine Leukocytes Urine RBC Urine WBC Hyaline Casts Urine Mucus Ur Culture Indicated? Blood Type Antibody Screen Crossmatch 10/02/16 10/02/16 10/02/16 21:00 21:00 21:55 WBC RBC Hgb Hct MCV MCH MCHC RDW Plt Count MPV Neut % (Auto) Lymph % (Auto) Benson % (Auto) Eos % (Auto) Baso % (Auto) Neut # (Auto) Lymph # (Auto) Benson # (Auto) Eos # (Auto) Baso # (Auto) Total Counted Immature Gran % Nucleated RBC % Immature Gran # Segmented Neutrophils Band Neutrophils Lymphocytes Monocytes Nucleated RBCs # Platelet Estimate Hypochromasia INR PT Patient/Control Mix Circ Anticoag PTT Patient Temperature ABG pH 7.415 ABG pH at Pt Temp ABG pCO2 44.1 ABG pCO2 at Pt Temp ABG pO2 118.0 H ABG pO2 at Pt Temp ABG HCO3 27.4 H ABG Total CO2 25.3 ABG O2 Saturation 99.0 ABG Base Excess 3.3 H ABG Sodium VBG pH VBG pCO2 VBG pO2 VBG HCO3 VBG Total CO2 VBG O2 Saturation VBG Base Excess Hemoglobin 11.1 L Hematocrit 34.3 L Potassium 4.1 Glucose 83 Ionized Calcium FiO2 Sodium Chloride Carbon Dioxide Anion Gap BUN Creatinine GFR Calculation BUN/Creatinine Ratio POC Glucose 103 Calculated Osmolality Calcium Venous Ioniz Calcium Magnesium Total Bilirubin Direct Bilirubin AST ALT Alkaline Phosphatase Total Creatine Kinase 213 CK-MB (CK-2) 15.3 H CK and CKMB Interp 7.2 Troponin I 6.430 H D Total Protein Albumin Globulin Albumin/Globulin Ratio Urine Color Urine Appearance Urine pH Ur Specific [place] Urine Protein Urine Glucose (UA) Urine Ketones Urine Blood Urine Nitrate Urine Bilirubin Urine Urobilinogen Urine Leukocytes Urine RBC Urine WBC Hyaline Casts Urine Mucus Ur Culture Indicated? Blood Type Antibody Screen Crossmatch 10/02/16 10/02/16 10/03/16 23:04 23:56 00:00 WBC RBC Hgb Hct MCV MCH MCHC RDW Plt Count MPV Neut % (Auto) Lymph % (Auto) [place] % (Auto) Eos % (Auto) Baso % (Auto) Neut # (Auto) Lymph # (Auto) Benson # (Auto) Eos # (Auto) Baso # (Auto) Total Counted Immature Gran % Nucleated RBC % Immature Gran # Segmented Neutrophils Band Neutrophils Lymphocytes Monocytes Nucleated RBCs # Platelet Estimate Hypochromasia INR PT Patient/Control Mix Circ Anticoag PTT Patient Temperature ABG pH 7.437 ABG pH at Pt Temp ABG pCO2 41.7 ABG pCO2 at Pt Temp ABG pO2 125.0 H ABG pO2 at Pt Temp ABG HCO3 27.5 H ABG Total CO2 28.8 H ABG O2 Saturation 98.3 ABG Base Excess 3.0 H ABG Sodium VBG pH VBG pCO2 VBG pO2 VBG HCO3 VBG Total CO2 VBG O2 Saturation VBG Base Excess Hemoglobin 12.2 L Hematocrit 36.0 L Potassium 4.5 Glucose 81 Ionized Calcium FiO2 Sodium Chloride Carbon Dioxide Anion Gap BUN Creatinine GFR Calculation BUN/Creatinine Ratio POC Glucose 100 87 Calculated Osmolality Calcium Venous Ioniz Calcium Magnesium Total Bilirubin Direct Bilirubin AST ALT Alkaline Phosphatase Total Creatine Kinase CK-MB (CK-2) CK and CKMB Interp Troponin I Total Protein Albumin Globulin Albumin/Globulin Ratio Urine Color Urine Appearance Urine pH Ur Specific [place] Urine Protein Urine Glucose (UA) Urine Ketones Urine Blood Urine Nitrate Urine Bilirubin Urine Urobilinogen Urine Leukocytes Urine RBC Urine WBC Hyaline Casts Urine Mucus Ur Culture Indicated? Blood Type Antibody Screen Crossmatch 10/03/16 10/03/16 10/03/16 01:01 01:47 02:58 WBC RBC Hgb Hct MCV MCH MCHC RDW Plt Count MPV Neut % (Auto) Lymph % (Auto) Benson % (Auto) Eos % (Auto) Baso % (Auto) Neut # (Auto) Lymph # (Auto) Benson # (Auto) Eos # (Auto) Baso # (Auto) Total Counted Immature Gran % Nucleated RBC % Immature Gran # Segmented Neutrophils Band Neutrophils Lymphocytes Monocytes Nucleated RBCs # Platelet Estimate Hypochromasia INR PT Patient/Control Mix Circ Anticoag PTT Patient Temperature ABG pH ABG pH at Pt Temp ABG pCO2 ABG pCO2 at Pt Temp ABG pO2 ABG pO2 at Pt Temp ABG HCO3 ABG Total CO2 ABG O2 Saturation ABG Base Excess ABG Sodium VBG pH VBG pCO2 VBG pO2 VBG HCO3 VBG Total CO2 VBG O2 Saturation VBG Base Excess Hemoglobin Hematocrit Potassium Glucose Ionized Calcium FiO2 Sodium Chloride Carbon Dioxide Anion Gap BUN Creatinine GFR Calculation BUN/Creatinine Ratio POC Glucose 86 96 101 Calculated Osmolality Calcium Venous Ioniz Calcium Magnesium Total Bilirubin Direct Bilirubin AST ALT Alkaline Phosphatase Total Creatine Kinase CK-MB (CK-2) CK and CKMB Interp Troponin I Total Protein Albumin Globulin Albumin/Globulin Ratio Urine Color Urine Appearance Urine pH Ur Specific [place] Urine Protein Urine Glucose (UA) Urine Ketones Urine Blood Urine Nitrate Urine Bilirubin Urine Urobilinogen Urine Leukocytes Urine RBC Urine WBC Hyaline Casts Urine Mucus Ur Culture Indicated? Blood Type Antibody Screen Crossmatch 10/03/16 10/03/16 10/03/16 04:14 04:15 04:15 WBC 11.5 D RBC 3.87 D Hgb 11.6 L D Hct 34.2 L MCV 88.4 MCH 30 MCHC 33.9 RDW 15.1 Plt Count 43 L D MPV 10.7 Neut % (Auto) 90.1 H Lymph % (Auto) 4.5 L Benson % (Auto) 5.0 Eos % (Auto) 0.0 Baso % (Auto) 0.1 Neut # (Auto) 10.4 H Lymph # (Auto) 0.5 L Benson # (Auto) 0.6 Eos # (Auto) 0.0 Baso # (Auto) 0.0 Total Counted 100 Immature Gran % 0.3 Nucleated RBC % 0.0 Immature Gran # 0.04 Segmented Neutrophils 90 H Band Neutrophils 2 Lymphocytes 4 L Monocytes 4 Nucleated RBCs # 0.00 Platelet Estimate Decreased Hypochromasia 2+ INR PT Patient/Control Mix Circ Anticoag PTT Patient Temperature ABG pH ABG pH at Pt Temp ABG pCO2 ABG pCO2 at Pt Temp ABG pO2 ABG pO2 at Pt Temp ABG HCO3 ABG Total CO2 ABG O2 Saturation ABG Base Excess ABG Sodium VBG pH VBG pCO2 VBG pO2 VBG HCO3 VBG Total CO2 VBG O2 Saturation VBG Base Excess Hemoglobin Hematocrit Potassium 4.6 Glucose 102 Ionized Calcium FiO2 Sodium 143 Chloride 106 Carbon Dioxide 29 Anion Gap 12.6 BUN 37 H Creatinine 1.91 H GFR Calculation 34 BUN/Creatinine Ratio 19.00 POC Glucose 100 Calculated Osmolality 293.0 Calcium 8.3 L Venous Ioniz Calcium Magnesium 2.3 Total Bilirubin 1.30 H Direct Bilirubin 0.60 H AST 52 H ALT 26 Alkaline Phosphatase 64 Total Creatine Kinase CK-MB (CK-2) CK and CKMB Interp Troponin I Total Protein 4.9 L Albumin 2.8 L Globulin 2.1 L Albumin/Globulin Ratio 1.3 Urine Color Urine Appearance Urine pH Ur Specific [place] Urine Protein Urine Glucose (UA) Urine Ketones Urine Blood Urine Nitrate Urine Bilirubin Urine Urobilinogen Urine Leukocytes Urine RBC Urine WBC Hyaline Casts Urine Mucus Ur Culture Indicated? Blood Type Antibody Screen Crossmatch 10/03/16 10/03/16 10/03/16 04:15 04:15 05:08 WBC RBC Hgb Hct MCV MCH MCHC RDW Plt Count MPV Neut % (Auto) Lymph % (Auto) Benson % (Auto) Eos % (Auto) Baso % (Auto) Neut # (Auto) Lymph # (Auto) Benson # (Auto) Eos # (Auto) Baso # (Auto) Total Counted Immature Gran % Nucleated RBC % Immature Gran # Segmented Neutrophils Band Neutrophils Lymphocytes Monocytes Nucleated RBCs # Platelet Estimate Hypochromasia INR PT Patient/Control Mix Circ Anticoag PTT Patient Temperature ABG pH 7.428 ABG pH at Pt Temp ABG pCO2 42.3 ABG pCO2 at Pt Temp ABG pO2 117.2 H ABG pO2 at Pt Temp ABG HCO3 27.3 H ABG Total CO2 28.6 H ABG O2 Saturation 98.1 ABG Base Excess 2.7 H ABG Sodium VBG pH VBG pCO2 VBG pO2 VBG HCO3 VBG Total CO2 VBG O2 Saturation VBG Base Excess Hemoglobin 12.2 L Hematocrit 36.0 L Potassium 4.6 Glucose 96 Ionized Calcium FiO2 Sodium Chloride Carbon Dioxide Anion Gap BUN Creatinine GFR Calculation BUN/Creatinine Ratio POC Glucose 110 H Calculated Osmolality Calcium Venous Ioniz Calcium Magnesium Total Bilirubin Direct Bilirubin AST ALT Alkaline Phosphatase Total Creatine Kinase 210 CK-MB (CK-2) 19.5 H CK and CKMB Interp 9.3 Troponin I 6.820 H Total Protein Albumin Globulin Albumin/Globulin Ratio Urine Color Urine Appearance Urine pH Ur Specific [place] Urine Protein Urine Glucose (UA) Urine Ketones Urine Blood Urine Nitrate Urine Bilirubin Urine Urobilinogen Urine Leukocytes Urine RBC Urine WBC Hyaline Casts Urine Mucus Ur Culture Indicated? Blood Type Antibody Screen Crossmatch Quality Measures - VTE Contraindication to Pharmacological VTE Prophylaxis: High Risk of Bleeding - Stroke Onset of Symptoms Date: 09/05/16 Onset of Symptoms Time: 15:30 Symptom Onset Unknown: No
[2016-10-03] MEDS ORDERED: FUROSEMIDE 100 MG/10 ML VIAL IV ONE (06:25)
--- NOTE | 2016-10-03 06:52 | Pulmonology Progress Note ---
Pulmonary - PN: Subj Interval history: This 86-year-old white male has congestive heart failure due to aortic stenosis. Also has atherosclerotic heart disease with previous coronary bypass surgery. Needs to have his IV aortic valve replaced. He has a right pleural effusion. His chest x-ray looks a little bit better today as far as the pulmonary edema is concerned. However we gave him Lasix yesterday and his creatinine has risen a little more. I think we would do best to get the right pleural fluid drained in preparation for surgery. Will ask interventional radiology to do this since it appears to be loculated laterally and would be safely done with ultrasound guidance. Patient is not sleeping well. Should tolerate some Ativan at bedtime. Quite anxious. I should note that the reason he has pleural fluid on the right and not the left is that he has had a previous left decortication. 09/18/2016 we have tried to diurese him and it has not been very successful. His creatinine has risen. He had a right thoracentesis with removal of 800 mL of fluid but he had his CT scan yesterday still showed significant right effusion. The pleural fluid is a transudate. Certainly think this is due to congestive heart failure, due to his aortic stenosis. It will be very difficult to treat his heart failure without the valve being replaced. However he is at high risk for surgery given his fragile state and acute kidney injury with Lasix and low cardiac output. Will ask nephrology to see if they can help us with this. Patient at present is about the same as far as her shortness of breath. He is empirically on antibiotics. 09/19/2016 he continues to complain of dyspnea. Primarily says he has trouble breathing through his nose. He is on 2 different nose sprays in his nasal passages appear open on my exam. I think is primarily short of breath related to his congestive heart failure/aortic stenosis. Renal function is a little better. Perhaps getting further out from contrast studies is helping. We do need to try to diurese him further. Nephrology is following as well. 09/20/2016 patient feels a little better sitting up in the chair. However his chest x-ray shows that the right pleural effusion has increased in size. Having a difficult time diuresing him with his creatinine 2.8. Would recommend putting a pleural catheter in the right side to drain this. Hopefully this will help us prep him for possible aortic valve replacement. The pleural effusion is due to congestive heart failure, however they are having a difficult time diuresing him. 09/21/2016 breathing is better since getting the pleural catheter. Chest x-ray today pending. Renal function getting a little better. Hopefully can plan aortic valve surgery soon. 09/22/2016 patient feels a little better. Should be able to tolerate nasal biprong's now. Chest x-ray shows the right pleural effusion has been evacuated. Put out about 200 mL from chest tube since yesterday morning. Need to keep it in for now. Renal function reports are pending from this morning. He does appear to be holding his own layer. Still has some peripheral edema and we need to bump with Lasix again. In my opinion he will need to have aortic valve surgery in order to get back to any meaningful life at home. Otherwise he will be a bed to chair existence. Certainly some risk involved as far as postoperative renal function and/or respiratory failure, but I favor proceeding with surgery next week. 09/23/2016 put out another 400 mL from his chest tube yesterday. Still has peripheral edema. We need to diurese him further. Renal insufficiency makes it difficult. Dr. Mehta wants to do a CT angiogram to further evaluate his aortic arch. His creatinine is down to 2.3. I feel sure further contrast would bump his creatinine up above 3 again and perhaps worse. I do think he would be better off having surgery then not having surgery. I do not think he can go home and come back as he still has a pleural catheter in. We may consider doing a pleurodesis, which is unusual for a transudative type effusion , and only works about half the time in this situation. 09/24/2016 his right pleural catheter came out during the night. Chest x-ray this morning shows the right lung well expanded. He does have some interstitial edema and some interstitial scarring. Creatinine has come down further to 2.1. We need to try to diurese him further. Would not replace the pleural catheter at this point. 09/25/2016 patient needs to be more active. Creatinine is come down to 1.9. Plans are for a CT angiogram of the chest tomorrow. Will need to watch renal function closely after that. Since the CT is planned I will not order chest x- ray 09/26/2016 CT angiogram was canceled because creatinine was up to 2.1. Defer to nephrology, cardiovascular surgery, and radiology on plans there. His chest x- ray shows recurrence of right pleural effusion. Not as much as before but still there. We are trying to diurese him as much as his kidneys will allow. He still has peripheral edema. 09/27/[address]ogram today. Dr. Mehta to review to decide about surgery. Creatinine was 1.9 this morning. Patient had episode of increased dyspnea last night. Did get better with 1 mg of morphine. If he is to have surgery in the next couple of days, then the right pleural fluid could be drained at that time. If surgery is delayed for several days to follow renal function, then he should have the right pleural catheter replaced. 09/28/2016 patient feels better today. Sleeping better. Less dyspneic. Chest CT angiogram done yesterday and creatinine remains 1.9. Dr. Mehta to review the CT and make plans as far as surgery is concerned. Patient is anxious to go ahead with the surgery. 09/29/2016 patient sleeping in recliner. Dyspnea is improved. Renal function has improved with creatinine 1.7. Plans are for surgery Sunday with coronary bypass surgery of one vessel and aortic valve replacement. Pleural drainage will take care of the right effusion at that time. Stable from pulmonary standpoint. Please call pulmonary guest relations associate this weekend if needed. 10/02/16 Pt seen in CVR, on vent. C.O. 3.6 L. PCW 25. ABG's ok. Wean per protocol. CXR OK. 10/03/2016 patient awake and responsive squeezes fingers on command. ABGs improved. Earlier attempt at CPAP this morning reveal that he had apneic episodes so it was terminated. Hopefully will be able to do CPAP get extubated this morning. His chest x-ray looks okay. Urine output has been marginal. His weight is up 6 kg from pre surgery. Agree with Lasix infusion. Need to decrease IV fluids. Exam (Progress Note) - Constitutional Vitals: Period Temp Pulse Resp BP Sys/[place] Pulse Ox Last 24 Hr 94.6 F-98.7 F 68-111 10-16 91-155/40-63 97-100 Exam: Patient's responsive, comfortable flat in bed. Squeezes fingers on command. ET in place, on vent. Pupils react to light. Neck supple no bruits. Chest shows a few basilar crackles at the right base. Dullness at right base to percussion. Heart normal rate rhythm grade 1/6 systolic murmur at right base. Abdomen soft nontender no masses. Bowel sounds present. Extremities no clubbing or cyanosis. 1+ edema. Calves nontender. Results - Labs CBC & BMP: 10/03/16 04:15 10/03/16 04:15 Lab Results: I have reviewed the past 24 hour labs - Diagnostic Findings Procedure: Chest x-ray: image reviewed by me (Right chest tube in place. Left lung is clear. Right pleural thickening about the same as before. ET tube good position.) Assessment and Plan (1) Syncope Status: Acute Assessment and plan: Syncope likely due to cardiac causes related to his aortic stenosis. 09/15/16 likely due to his aortic stenosis. 09/18/2016 again the syncope is likely due to his aortic stenosis. 09/20/2016 no symptoms of postural syncope at this time 10/03/2016 syncope was what led to his admission with the finding of severe aortic stenosis Current Visit: Yes (2) Chronic kidney disease Status: Chronic Assessment and plan: Creatinine is 2.1. He has had some renal insufficiency for quite some time related to vascular disease and diabetes. At present I think he is ahead on fluid. I will bump him with Lasix. 09/15/16 creatinine up to 2.3 after a dose of Lasix. Afraid to diurese any more vigorously at present. Asking interventional radiology to drain the loculated right effusion. This should help getting prepped for aortic valve replacement. 09/18/2016 creatinine up to 2.8. Difficulty mobilizing right pleural effusion fluid 09/19/2016 renal function is a little better today. Creatinine down to 2.4. May have had a bump in creatinine related to his contrast last week. 09/20/2016 creatinine up to 2.8. 09/21/2016 creatinine down to 2.5. Improving. Hopefully getting further out from contrast 09/22/2016 chemistries pending today. Hopefully can get creatinine back down to around 2. 09/23/2016 creatinine down to 2.3. This despite giving diuretics. 09/24/2016 creatinine down to 2.1. 09/25/2016 creatinine down to 1.9. This is about baseline for him. 09/26/2016 creatinine 2.1 today. Nephrology following. 09/27/2016 renal function about baseline for him at 1.9 creatinine. Likely will see a rise over the next couple of days due to the contrast today. 09/28/2016 creatinine 1.9 and appear stable despite getting repeat contrast yesterday 09/29/2016 creatinine down to 1.7 despite contrast and diuretics. 10/02/16 Renal function intact now. Cr 1.5 this AM. 10/03/2016 creatinine 1.9. Urine output down to about 20-25 cc an hour. Weight up 6 kg. Agree with Lasix infusion. Current Visit: Yes (3) Coronary artery disease Status: Chronic Assessment and plan: Previous coronary bypass surgery with additional findings at catheterization this admission. 09/25/2016 patient not having any active angina. 09/28/2016 previous coronary bypass surgery. 09/29/1969 will have 1 of coronary bypass is redone. 10/02/16 Had patch bovine graft of one of previous CABG vein grafts. 10/03/2016 status post redo coronary bypass with patch graft. Current Visit: Yes Qualifiers: Coronary Disease-Associated Artery/Lesion type: [place] artery [place] vs. transplanted heart: [place] heart Associated angina: without angina Qualified Code(s): I25.10 - Atherosclerotic heart disease of [place] coronary artery without angina pectoris (4) Pulmonary hypertension Status: Chronic Assessment and plan: This was not quantified on the echo but is likely to be secondary to his left heart disease with aortic stenosis. 09/15/16 this should be due to his aortic stenosis and congestive heart failure. 09/18/2016 secondary to his left heart disease. 09/20/2016 this is due to his left heart disease. 09/21/2016 due to left heart disease. 09/22/2016 this is secondary to his left heart disease, primarily aortic stenosis 09/23/2016 this is secondary to his aortic stenosis. 09/24/2016 secondary to left heart disease. 09/27/2016 again this is felt to be secondary to his left heart disease primarily aortic stenosis 09/28/2016 apparently due to left heart disease/aortic stenosis 09/29/2016 again this is due to left heart disease. 10/02/16 PA pressures lower since AVR. 10/03/2016 systolic PA pressure in the mid 30s. Continues to improve. Current Visit: Yes (5) Severe aortic stenosis Status: Chronic Assessment and plan: Has severe aortic stenosis by echo and catheterization. Likely the possible cause of his congestive heart failure and pulmonary hypertension. 09/15/16 hopefully can have surgery when we get him tuned up. 09/18/2016 will need surgery if he can tolerate it. 09/19/2016 hopefully we can get him tuned up where he can tolerate AVR. 09/20/2016 aortic valve surgery is indicated when we can get him tuned up for it. 09/21/2016 need surgery. Trying to get him tuned up for that. If renal function is stable and right pleural effusion totally evacuated, then hopefully could plan sign. 09/22/2016 x-ray is better. Less dyspnea. If renal function is stable, I would be in favor of proceeding with surgery next week. 09/23/16 ideally should be repaired surgically or replaced. He has some chronic bronchitis but does not have severe COPD. 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 09/24/2016 again trying to tune him up so he can have his aortic valve replaced or repaired. 09/25/2016 trying to get him to the point where he can have his aortic valve replaced or repaired. Needs more physical activity. 09/26/2016 continuing to try to get him where he can tolerate aortic valve surgery. 09/27/[address] done this morning for Dr. Mehta to review. 09/28/2016 Dr. Mehta to review CT and decide whether to proceed with aortic valve replacement or repair 09/29/2016 this has become severe and is causing congestive heart failure. Has well-maintained LV ejection fraction. Set up for surgery Sunday to replace the valve 10/02/16 Post AVR. Weaning from vent will take overnight probably. 10/03/2016 status post aortic valve replacement. Cardiac output is better. Pulmonary capillary wedge pressure still in the low 20s. Diuresing Current Visit: Yes (6) Diabetes mellitus Status: Chronic Assessment and plan: Has some hyperglycemia. Adding sliding scale. 09/15/16 glucoses in the 140-200 range. 09/18/2016 glucoses look okay. 09/19/2016 glucoses are fairly well controlled. 09/20/2016 glucoses look better. 09/21/2016 still mildly elevated glucoses. 09/22/2016 glucoses fairly well controlled. 09/23/2016 blood sugars are okay. 09/24/2016 glucoses are a little high. Adjust insulin, increase Lantus to 15 units. 09/25/2016 glucoses a little better. 09/26/2016 blood sugars are acceptable. 09/27/2016 blood sugars running in the 85-90 range. 09/28/2016 glucoses well controlled. 09/29/2016 blood sugars fairly well controlled. 10/02/16 Glucoses stable on SS insulin. 10/03/2016 glucoses very well controlled Current Visit: Yes Qualifiers: Diabetes mellitus type: type 2 (7) Acute bronchitis Status: Resolved Assessment and plan: Based on the change in sputum color and elevated white count 16,000 think is reasonable to cover him with antibiotics for this. Will use Atrovent for bronchodilators. 09/15/16 empirically on antibiotics and Atrovent. I think his main problem respiratory escobar is congestive heart failure related to his aortic stenosis. Would not delay surgery for bronchitis in this situation 09/18/2016 on empiric antibiotics. 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 It is sensitive to Cipro. I will change him to oral Cipro. 09/20/2016 I do not hear any rhonchi. He is on oral Cipro. 09/21/2016 bronchitis is improved. Probably needs a couple more days of Cipro. 09/22/2016 he has had a week's worth of antibiotics. Bronchitis is quiet now. We will stop Cipro. 09/23/2016 he has completed antibiotics. 09/25/2016 he is not coughing at present. Current Visit: Yes
[2016-10-03] MEDS ORDERED: FUROSEMIDE 20 MG/2 ML VIAL IV ONE (07:00)
--- NOTE | 2016-10-03 07:52 | Cardiology Progress Note ---
<Rosie Hsu - Last Filed: 10/03/16 07:48> Assessment and Plan - Time spent with patient Time spent with patient: Less than 30 minutes (1) Acute on chronic renal failure Status: Acute Current Visit: Yes (2) Severe aortic stenosis Status: Chronic Assessment and plan: Postop day 1 from aortic valve replacement. Hemodynamically stable and doing well at this time. Current Visit: Yes (3) Coronary artery disease Status: Chronic Assessment and plan: Postop 1. Adequately revascularized except for the ostial vein graft to the first obtuse marginal which now has a nice vein graft pericardial patch. Current Visit: Yes Qualifiers: Coronary Disease-Associated Artery/Lesion type: lime artery Nikolai vs. transplanted heart: lime heart Associated angina: without angina Qualified Code(s): I25.10 - Atherosclerotic heart disease of lime coronary artery without angina pectoris (4) Atrial flutter by electrocardiogram Status: Acute Current Visit: Yes (5) Hypertension Status: Chronic Assessment and plan: Currently well controlled. He was hypotensive following surgery but is now no longer requiring the use of vasopressors. Current Visit: Yes (6) Diabetes mellitus Status: Chronic Current Visit: Yes Qualifiers: Diabetes mellitus type: type 2 (7) Epistaxis Status: Resolved Current Visit: Yes (8) Pleural effusion Status: Acute Current Visit: Yes (9) Hypoxemia Status: Acute Current Visit: Yes Cardiology - PN: Subj Interval history: RESEARCH STUDY ASSISTANT: DR. ALEXANDER Mr. Frazier is a 86 year old male with a history of coronary artery disease, hypertension, hyperlipidemia, type 2 diabetes mellitus, chronic kidney disease. He is status post coronary artery bypass grafting August 06 2001 with SINGH to the LAD and vein graft to the circumflex marginal and right coronary arteries. He is status post right carotid endarterectomy July 03, 2002. He was admitted to the hospital after an episode of syncope and prolonged weakness. Echocardiogram showed severe aortic stenosis and cardiac catheterization root revealed patency of an internal mammary graft and circumflex graft although the circumflex graft has an ostial stenosis. The right coronary graft is occluded but the lime right coronary does not have significant obstructive lesions. He underwent chest CTA on 09/27/2016 further evaluation of the position of his SINGH bypass graft and was planned for surgery on 10/02/2016. Throughout hospitalization he has had trouble with recurrent right pleural effusion and acute on chronic renal failure. Mr. Frazier is postop day 1. He received an aortic valve replacement as well as a pericardial patch graft location of the saphenous vein graft to the circumflex distribution. He has had numerous blood products postoperatively but is now hemodynamically stable and not requiring vasopressors. He is on SIMV setting on the ventilator and will begin CPAP trials this morning. He has already tried one CPAP trial and was still little too drowsy from sedation. This morning, he is very alert and nodding appropriately to questions. Labs this morning are stable. H&H is 11.6 and 34.2.. His creatinine is elevated at 1.91 with GFR 34. Exam (Progress Note) - Constitutional Vitals: Period Temp Pulse Resp BP Sys/Hurtado Pulse Ox Last 24 Hr 94.6 F-98.7 F 68-111 10-25 91-155/40-63 97-100 Exam: General appearance: Orally intubated. Over weight, no acute distress. - Head Head exam: Present: normal inspection, normocephalic, atraumatic. Absent: hematoma, laceration - Eye Eye exam: Present: EOMI. Absent: conjunctival injection, nystagmus, periorbital swelling, scleral icterus, laceration to eyelids Pupils: Present: PERRL. Absent: constricted, dilated, fixed, irregular, unequal - ENT ENT exam: Present: Orally intubated, normal external ear exam, NG tube in place to low intermittent wall suction - Neck Neck exam: Present: normal inspection. Absent: lymphadenopathy, meningismus, tenderness, thyromegaly - Respiratory Respiratory exam: Present: Mechanically ventilated breath sounds, chest tubes in place draining appropriately. Absent: accessory muscle use - Cardiovascular Cardiovascular exam: Present: regular rate and rhythm, S4 present. Absent: carotid bruit, JVD, rubs - GI/Abdominal GI/Abdominal exam: Present: normal bowel sounds, soft. Absent: distended, firm , guarding, hernia, mass, tenderness, rebound. - Extremities Exam Extremities exam: Present: normal inspection, normal capillary refill. Upper extremity pulses 2+. Lower extremity pulses 2+. 1-2+ edema to bilateral upper and lower extremities. Absent: calf tenderness - Back Exam Back exam: Present: Unable to examine due to habitus. Sedated on mechanical ventilator. - Neurological Exam Neurological exam: Present: Limited due to habitus (on ventilator). Arousable to verbal stimuli. No resting or essential tremor. - Psychiatric Psychiatric exam: Present: Unable to adequately assess due to patient being on mechanical ventilation. - Skin Skin exam: Present: normal color, warm, dry, intact. Absent: cyanosis, diaphoretic, rash, urticaria Result/EKG - Labs CBC & BMP: 10/03/16 04:15 10/03/16 04:15 Lab Results: I have reviewed the past 24 hour labs Labs: Laboratory Results - last 24 hr 10/01/16 10/02/16 10/02/16 03:42 07:00 09:23 WBC RBC Hgb Hct MCV MCH MCHC RDW Plt Count MPV Neut % (Auto) Lymph % (Auto) [place] % (Auto) Eos % (Auto) Baso % (Auto) Neut # (Auto) Lymph # (Auto) [place] # (Auto) Eos # (Auto) Baso # (Auto) Total Counted Immature Gran % Nucleated RBC % Immature Gran # Segmented Neutrophils Band Neutrophils Lymphocytes Monocytes Nucleated RBCs # Platelet Estimate Hypochromasia INR PT Patient/Control Mix Circ Anticoag PTT Patient Temperature 36 ABG pH ABG pH at Pt Temp 7.508 ABG pCO2 ABG pCO2 at Pt Temp 38.5 ABG pO2 ABG pO2 at Pt Temp 35.4 ABG HCO3 ABG Total CO2 ABG O2 Saturation ABG Base Excess ABG Sodium 138 VBG pH 7.493 VBG pCO2 40.4 L VBG pO2 38.0 VBG HCO3 30.7 H VBG Total CO2 29.2 VBG O2 Saturation 77.1 VBG Base Excess 7.2 H Hemoglobin 7.4 L Hematocrit 23.1 L Potassium 3.1 L Glucose 122 H Ionized Calcium FiO2 80.00 Sodium Chloride Carbon Dioxide Anion Gap BUN Creatinine GFR Calculation BUN/Creatinine Ratio POC Glucose Calculated Osmolality Calcium Venous Ioniz Calcium 1.01 L Magnesium Total Bilirubin Direct Bilirubin AST ALT Alkaline Phosphatase Total Creatine Kinase CK-MB (CK-2) CK and CKMB Interp Troponin I Total Protein Albumin Globulin Albumin/Globulin Ratio Urine Color Yellow Urine Appearance Clear Urine pH 8.0 Ur Specific [place] 1.017 Urine Protein 30 Urine Glucose (UA) Negative Urine Ketones Negative Urine Blood Negative Urine Nitrate Negative Urine Bilirubin Negative Urine Urobilinogen 4.0 H Urine Leukocytes Negative Urine RBC 1 Urine WBC <1 Hyaline Casts 1 Urine Mucus Occasional Ur Culture Indicated? Not indicated Blood Type O POSITIVE Antibody Screen Negative Crossmatch See Detail 10/02/16 10/02/16 10/02/16 09:56 10:33 10:55 WBC RBC Hgb Hct MCV MCH MCHC RDW Plt Count MPV Neut % (Auto) Lymph % (Auto) [place] % (Auto) Eos % (Auto) Baso % (Auto) Neut # (Auto) Lymph # (Auto) [place] # (Auto) Eos # (Auto) Baso # (Auto) Total Counted Immature Gran % Nucleated RBC % Immature Gran # Segmented Neutrophils Band Neutrophils Lymphocytes Monocytes Nucleated RBCs # Platelet Estimate Hypochromasia INR PT Patient/Control Mix Circ Anticoag PTT Patient Temperature 34 33 35 ABG pH ABG pH at Pt Temp 7.581 7.619 7.592 ABG pCO2 ABG pCO2 at Pt Temp 32.5 28.5 29.5 ABG pO2 ABG pO2 at Pt Temp 34.8 31.3 31.6 ABG HCO3 ABG Total CO2 ABG O2 Saturation ABG Base Excess ABG Sodium 134 L 136 135 VBG pH 7.535 7.557 7.561 VBG pCO2 37.5 L 34.6 L 32.5 L VBG pO2 42.8 H 41.3 H 36.4 VBG HCO3 32.0 H 31.6 H 30.3 H VBG Total CO2 30.1 28.7 26.9 VBG O2 Saturation 84.3 83.2 80.0 VBG Base Excess 8.4 H 8.0 H 6.8 H Hemoglobin 6.6 L 7.9 L 8.9 L Hematocrit 20.8 L 24.6 L 27.6 L Potassium 3.5 3.2 L 3.7 Glucose 240 H 229 H 244 H Ionized Calcium FiO2 80.00 80.00 80.00 Sodium Chloride Carbon Dioxide Anion Gap BUN Creatinine GFR Calculation BUN/Creatinine Ratio POC Glucose Calculated Osmolality Calcium Venous Ioniz Calcium 1.00 L 1.01 L 0.99 L Magnesium Total Bilirubin Direct Bilirubin AST ALT Alkaline Phosphatase Total Creatine Kinase CK-MB (CK-2) CK and CKMB Interp Troponin I Total Protein Albumin Globulin Albumin/Globulin Ratio Urine Color Urine Appearance Urine pH Ur Specific [place] Urine Protein Urine Glucose (UA) Urine Ketones Urine Blood Urine Nitrate Urine Bilirubin Urine Urobilinogen Urine Leukocytes Urine RBC Urine WBC Hyaline Casts Urine Mucus Ur Culture Indicated? Blood Type Antibody Screen Crossmatch 10/02/16 10/02/16 10/02/16 11:44 11:44 12:50 WBC 7.5 RBC 2.26 L D Hgb 6.9 L D Hct 20.2 L MCV 89.4 MCH 31 MCHC 34.2 RDW 14.6 Plt Count 46 L D 63 L D MPV 10.5 Neut % (Auto) 84.0 H Lymph % (Auto) 5.2 L [place] % (Auto) 7.8 Eos % (Auto) 1.7 Baso % (Auto) 0.1 Neut # (Auto) 6.3 Lymph # (Auto) 0.4 L [place] # (Auto) 0.6 Eos # (Auto) 0.1 Baso # (Auto) 0.0 Total Counted Immature Gran % 1.2 Nucleated RBC % 0.0 Immature Gran # 0.09 Segmented Neutrophils Band Neutrophils Lymphocytes Monocytes Nucleated RBCs # 0.00 Platelet Estimate Hypochromasia INR PT Patient/Control Mix Circ Anticoag PTT Patient Temperature 37 ABG pH 7.518 H ABG pH at Pt Temp 7.518 ABG pCO2 36.6 ABG pCO2 at Pt Temp 36.6 ABG pO2 452.0 H ABG pO2 at Pt Temp 452.0 ABG HCO3 30.3 H ABG Total CO2 27.9 H ABG O2 Saturation 100.0 ABG Base Excess 6.5 H ABG Sodium 136 VBG pH VBG pCO2 VBG pO2 VBG HCO3 VBG Total CO2 VBG O2 Saturation VBG Base Excess Hemoglobin 7.4 L Hematocrit 23.0 L Potassium 3.6 Glucose 227 H Ionized Calcium 1.25 FiO2 Sodium Chloride Carbon Dioxide Anion Gap BUN Creatinine GFR Calculation BUN/Creatinine Ratio POC Glucose Calculated Osmolality Calcium Venous Ioniz Calcium Magnesium Total Bilirubin Direct Bilirubin AST ALT Alkaline Phosphatase Total Creatine Kinase CK-MB (CK-2) CK and CKMB Interp Troponin I Total Protein Albumin Globulin Albumin/Globulin Ratio Urine Color Urine Appearance Urine pH Ur Specific [place] Urine Protein Urine Glucose (UA) Urine Ketones Urine Blood Urine Nitrate Urine Bilirubin Urine Urobilinogen Urine Leukocytes Urine RBC Urine WBC Hyaline Casts Urine Mucus Ur Culture Indicated? Blood Type Antibody Screen Crossmatch 10/02/16 10/02/16 10/02/16 12:50 12:50 12:50 WBC RBC Hgb Hct MCV MCH MCHC RDW Plt Count MPV Neut % (Auto) Lymph % (Auto) [place] % (Auto) Eos % (Auto) Baso % (Auto) Neut # (Auto) Lymph # (Auto) [place] # (Auto) Eos # (Auto) Baso # (Auto) Total Counted Immature Gran % Nucleated RBC % Immature Gran # Segmented Neutrophils Band Neutrophils Lymphocytes Monocytes Nucleated RBCs # Platelet Estimate Hypochromasia INR 1.4 PT Patient/Control Mix 14.8 D Circ Anticoag PTT 40.1 H Patient Temperature ABG pH ABG pH at Pt Temp ABG pCO2 ABG pCO2 at Pt Temp ABG pO2 ABG pO2 at Pt Temp ABG HCO3 ABG Total CO2 ABG O2 Saturation ABG Base Excess ABG Sodium VBG pH VBG pCO2 VBG pO2 VBG HCO3 VBG Total CO2 VBG O2 Saturation VBG Base Excess Hemoglobin Hematocrit Potassium 3.5 Glucose 199 H Ionized Calcium FiO2 Sodium 143 Chloride 102 Carbon Dioxide 30 Anion Gap 14.5 BUN 33 H Creatinine 1.40 H GFR Calculation 50 BUN/Creatinine Ratio 23.00 H POC Glucose Calculated Osmolality 297.0 Calcium 8.8 Venous Ioniz Calcium Magnesium 2.5 H Total Bilirubin 2.10 H Direct Bilirubin AST 35 ALT 20 Alkaline Phosphatase 48 Total Creatine Kinase 192 CK-MB (CK-2) 13.0 H CK and CKMB Interp 6.8 Troponin I 3.500 H Total Protein 4.3 L Albumin 2.5 L Globulin 1.8 L Albumin/Globulin Ratio 1.3 Urine Color Urine Appearance Urine pH Ur Specific [place] Urine Protein Urine Glucose (UA) Urine Ketones Urine Blood Urine Nitrate Urine Bilirubin Urine Urobilinogen Urine Leukocytes Urine RBC Urine WBC Hyaline Casts Urine Mucus Ur Culture Indicated? Blood Type Antibody Screen Crossmatch 10/02/16 10/02/16 10/02/16 12:59 14:14 15:00 WBC RBC Hgb Hct MCV MCH MCHC RDW Plt Count MPV Neut % (Auto) Lymph % (Auto) [place] % (Auto) Eos % (Auto) Baso % (Auto) Neut # (Auto) Lymph # (Auto) [place] # (Auto) Eos # (Auto) Baso # (Auto) Total Counted Immature Gran % Nucleated RBC % Immature Gran # Segmented Neutrophils Band Neutrophils Lymphocytes Monocytes Nucleated RBCs # Platelet Estimate Hypochromasia INR PT Patient/Control Mix Circ Anticoag PTT Patient Temperature ABG pH 7.548 H 7.516 H ABG pH at Pt Temp ABG pCO2 33.1 L 34.2 L ABG pCO2 at Pt Temp ABG pO2 273.0 H 155.0 H ABG pO2 at Pt Temp ABG HCO3 30.0 H 28.7 H ABG Total CO2 27.1 H 25.5 ABG O2 Saturation 100.0 99.4 ABG Base Excess 6.1 H 4.7 H ABG Sodium VBG pH VBG pCO2 VBG pO2 VBG HCO3 VBG Total CO2 VBG O2 Saturation VBG Base Excess Hemoglobin 7.0 L 8.5 L D Hematocrit 22.0 L 26.5 L Potassium 3.4 L 3.8 Glucose 201 H 180 H Ionized Calcium FiO2 Sodium Chloride Carbon Dioxide Anion Gap BUN Creatinine GFR Calculation BUN/Creatinine Ratio POC Glucose 236 H Calculated Osmolality Calcium Venous Ioniz Calcium Magnesium Total Bilirubin Direct Bilirubin AST ALT Alkaline Phosphatase Total Creatine Kinase CK-MB (CK-2) CK and CKMB Interp Troponin I Total Protein Albumin Globulin Albumin/Globulin Ratio Urine Color Urine Appearance Urine pH Ur Specific [place] Urine Protein Urine Glucose (UA) Urine Ketones Urine Blood Urine Nitrate Urine Bilirubin Urine Urobilinogen Urine Leukocytes Urine RBC Urine WBC Hyaline Casts Urine Mucus Ur Culture Indicated? Blood Type Antibody Screen Crossmatch 10/02/16 10/02/16 10/02/16 16:13 17:03 17:16 WBC RBC Hgb Hct MCV MCH MCHC RDW Plt Count MPV Neut % (Auto) Lymph % (Auto) [place] % (Auto) Eos % (Auto) Baso % (Auto) Neut # (Auto) Lymph # (Auto) [place] # (Auto) Eos # (Auto) Baso # (Auto) Total Counted Immature Gran % Nucleated RBC % Immature Gran # Segmented Neutrophils Band Neutrophils Lymphocytes Monocytes Nucleated RBCs # Platelet Estimate Hypochromasia INR PT Patient/Control Mix Circ Anticoag PTT Patient Temperature ABG pH 7.398 ABG pH at Pt Temp ABG pCO2 45.3 ABG pCO2 at Pt Temp ABG pO2 117.0 H ABG pO2 at Pt Temp ABG HCO3 26.8 H ABG Total CO2 25.1 ABG O2 Saturation 98.5 ABG Base Excess 2.6 H ABG Sodium VBG pH VBG pCO2 VBG pO2 VBG HCO3 VBG Total CO2 VBG O2 Saturation VBG Base Excess Hemoglobin 11.1 L D Hematocrit 34.3 L Potassium 4.6 Glucose 158 H Ionized Calcium FiO2 Sodium Chloride Carbon Dioxide Anion Gap BUN Creatinine GFR Calculation BUN/Creatinine Ratio POC Glucose 210 H 159 H Calculated Osmolality Calcium Venous Ioniz Calcium Magnesium Total Bilirubin Direct Bilirubin AST ALT Alkaline Phosphatase Total Creatine Kinase CK-MB (CK-2) CK and CKMB Interp Troponin I Total Protein Albumin Globulin Albumin/Globulin Ratio Urine Color Urine Appearance Urine pH Ur Specific [place] Urine Protein Urine Glucose (UA) Urine Ketones Urine Blood Urine Nitrate Urine Bilirubin Urine Urobilinogen Urine Leukocytes Urine RBC Urine WBC Hyaline Casts Urine Mucus Ur Culture Indicated? Blood Type Antibody Screen Crossmatch 10/02/16 10/02/16 10/02/16 18:03 19:05 19:55 WBC RBC Hgb Hct MCV MCH MCHC RDW Plt Count MPV Neut % (Auto) Lymph % (Auto) [place] % (Auto) Eos % (Auto) Baso % (Auto) Neut # (Auto) Lymph # (Auto) [place] # (Auto) Eos # (Auto) Baso # (Auto) Total Counted Immature Gran % Nucleated RBC % Immature Gran # Segmented Neutrophils Band Neutrophils Lymphocytes Monocytes Nucleated RBCs # Platelet Estimate Hypochromasia INR PT Patient/Control Mix Circ Anticoag PTT Patient Temperature ABG pH 7.355 ABG pH at Pt Temp ABG pCO2 52.9 H ABG pCO2 at Pt Temp ABG pO2 96.4 H ABG pO2 at Pt Temp ABG HCO3 26.9 H ABG Total CO2 26.3 ABG O2 Saturation 97.5 ABG Base Excess 2.8 H ABG Sodium VBG pH VBG pCO2 VBG pO2 VBG HCO3 VBG Total CO2 VBG O2 Saturation VBG Base Excess Hemoglobin 12.0 L Hematocrit 37.1 L Potassium 4.2 Glucose 136 H Ionized Calcium FiO2 Sodium Chloride Carbon Dioxide Anion Gap BUN Creatinine GFR Calculation BUN/Creatinine Ratio POC Glucose 104 106 Calculated Osmolality Calcium Venous Ioniz Calcium Magnesium Total Bilirubin Direct Bilirubin AST ALT Alkaline Phosphatase Total Creatine Kinase CK-MB (CK-2) CK and CKMB Interp Troponin I Total Protein Albumin Globulin Albumin/Globulin Ratio Urine Color Urine Appearance Urine pH Ur Specific [place] Urine Protein Urine Glucose (UA) Urine Ketones Urine Blood Urine Nitrate Urine Bilirubin Urine Urobilinogen Urine Leukocytes Urine RBC Urine WBC Hyaline Casts Urine Mucus Ur Culture Indicated? Blood Type Antibody Screen Crossmatch 10/02/16 10/02/16 10/02/16 20:59 21:00 21:00 WBC RBC Hgb Hct MCV MCH MCHC RDW Plt Count MPV Neut % (Auto) Lymph % (Auto) [place] % (Auto) Eos % (Auto) Baso % (Auto) Neut # (Auto) Lymph # (Auto) [place] # (Auto) Eos # (Auto) Baso # (Auto) Total Counted Immature Gran % Nucleated RBC % Immature Gran # Segmented Neutrophils Band Neutrophils Lymphocytes Monocytes Nucleated RBCs # Platelet Estimate Hypochromasia INR PT Patient/Control Mix Circ Anticoag PTT Patient Temperature ABG pH 7.415 ABG pH at Pt Temp ABG pCO2 44.1 ABG pCO2 at Pt Temp ABG pO2 118.0 H ABG pO2 at Pt Temp ABG HCO3 27.4 H ABG Total CO2 25.3 ABG O2 Saturation 99.0 ABG Base Excess 3.3 H ABG Sodium VBG pH VBG pCO2 VBG pO2 VBG HCO3 VBG Total CO2 VBG O2 Saturation VBG Base Excess Hemoglobin 11.1 L Hematocrit 34.3 L Potassium 4.1 Glucose 83 Ionized Calcium FiO2 Sodium Chloride Carbon Dioxide Anion Gap BUN Creatinine GFR Calculation BUN/Creatinine Ratio POC Glucose 74 Calculated Osmolality Calcium Venous Ioniz Calcium Magnesium Total Bilirubin Direct Bilirubin AST ALT Alkaline Phosphatase Total Creatine Kinase 213 CK-MB (CK-2) 15.3 H CK and CKMB Interp 7.2 Troponin I 6.430 H D Total Protein Albumin Globulin Albumin/Globulin Ratio Urine Color Urine Appearance Urine pH Ur Specific [place] Urine Protein Urine Glucose (UA) Urine Ketones Urine Blood Urine Nitrate Urine Bilirubin Urine Urobilinogen Urine Leukocytes Urine RBC Urine WBC Hyaline Casts Urine Mucus Ur Culture Indicated? Blood Type Antibody Screen Crossmatch 10/02/16 10/02/16 10/02/16 21:55 23:04 23:56 WBC RBC Hgb Hct MCV MCH MCHC RDW Plt Count MPV Neut % (Auto) Lymph % (Auto) [place] % (Auto) Eos % (Auto) Baso % (Auto) Neut # (Auto) Lymph # (Auto) [place] # (Auto) Eos # (Auto) Baso # (Auto) Total Counted Immature Gran % Nucleated RBC % Immature Gran # Segmented Neutrophils Band Neutrophils Lymphocytes Monocytes Nucleated RBCs # Platelet Estimate Hypochromasia INR PT Patient/Control Mix Circ Anticoag PTT Patient Temperature ABG pH ABG pH at Pt Temp ABG pCO2 ABG pCO2 at Pt Temp ABG pO2 ABG pO2 at Pt Temp ABG HCO3 ABG Total CO2 ABG O2 Saturation ABG Base Excess ABG Sodium VBG pH VBG pCO2 VBG pO2 VBG HCO3 VBG Total CO2 VBG O2 Saturation VBG Base Excess Hemoglobin Hematocrit Potassium Glucose Ionized Calcium FiO2 Sodium Chloride Carbon Dioxide Anion Gap BUN Creatinine GFR Calculation BUN/Creatinine Ratio POC Glucose 103 100 87 Calculated Osmolality Calcium Venous Ioniz Calcium Magnesium Total Bilirubin Direct Bilirubin AST ALT Alkaline Phosphatase Total Creatine Kinase CK-MB (CK-2) CK and CKMB Interp Troponin I Total Protein Albumin Globulin Albumin/Globulin Ratio Urine Color Urine Appearance Urine pH Ur Specific [place] Urine Protein Urine Glucose (UA) Urine Ketones Urine Blood Urine Nitrate Urine Bilirubin Urine Urobilinogen Urine Leukocytes Urine RBC Urine WBC Hyaline Casts Urine Mucus Ur Culture Indicated? Blood Type Antibody Screen Crossmatch 10/03/16 10/03/16 10/03/16 00:00 01:01 01:47 WBC RBC Hgb Hct MCV MCH MCHC RDW Plt Count MPV Neut % (Auto) Lymph % (Auto) [place] % (Auto) Eos % (Auto) Baso % (Auto) Neut # (Auto) Lymph # (Auto) [place] # (Auto) Eos # (Auto) Baso # (Auto) Total Counted Immature Gran % Nucleated RBC % Immature Gran # Segmented Neutrophils Band Neutrophils Lymphocytes Monocytes Nucleated RBCs # Platelet Estimate Hypochromasia INR PT Patient/Control Mix Circ Anticoag PTT Patient Temperature ABG pH 7.437 ABG pH at Pt Temp ABG pCO2 41.7 ABG pCO2 at Pt Temp ABG pO2 125.0 H ABG pO2 at Pt Temp ABG HCO3 27.5 H ABG Total CO2 28.8 H ABG O2 Saturation 98.3 ABG Base Excess 3.0 H ABG Sodium VBG pH VBG pCO2 VBG pO2 VBG HCO3 VBG Total CO2 VBG O2 Saturation VBG Base Excess Hemoglobin 12.2 L Hematocrit 36.0 L Potassium 4.5 Glucose 81 Ionized Calcium FiO2 Sodium Chloride Carbon Dioxide Anion Gap BUN Creatinine GFR Calculation BUN/Creatinine Ratio POC Glucose 86 96 Calculated Osmolality Calcium Venous Ioniz Calcium Magnesium Total Bilirubin Direct Bilirubin AST ALT Alkaline Phosphatase Total Creatine Kinase CK-MB (CK-2) CK and CKMB Interp Troponin I Total Protein Albumin Globulin Albumin/Globulin Ratio Urine Color Urine Appearance Urine pH Ur Specific [place] Urine Protein Urine Glucose (UA) Urine Ketones Urine Blood Urine Nitrate Urine Bilirubin Urine Urobilinogen Urine Leukocytes Urine RBC Urine WBC Hyaline Casts Urine Mucus Ur Culture Indicated? Blood Type Antibody Screen Crossmatch 10/03/16 10/03/16 10/03/16 02:58 04:14 04:15 WBC 11.5 D RBC 3.87 D Hgb 11.6 L D Hct 34.2 L MCV 88.4 MCH 30 MCHC 33.9 RDW 15.1 Plt Count 43 L D MPV 10.7 Neut % (Auto) 90.1 H Lymph % (Auto) 4.5 L [place] % (Auto) 5.0 Eos % (Auto) 0.0 Baso % (Auto) 0.1 Neut # (Auto) 10.4 H Lymph # (Auto) 0.5 L [place] # (Auto) 0.6 Eos # (Auto) 0.0 Baso # (Auto) 0.0 Total Counted 100 Immature Gran % 0.3 Nucleated RBC % 0.0 Immature Gran # 0.04 Segmented Neutrophils 90 H Band Neutrophils 2 Lymphocytes 4 L Monocytes 4 Nucleated RBCs # 0.00 Platelet Estimate Decreased Hypochromasia 2+ INR PT Patient/Control Mix Circ Anticoag PTT Patient Temperature ABG pH ABG pH at Pt Temp ABG pCO2 ABG pCO2 at Pt Temp ABG pO2 ABG pO2 at Pt Temp ABG HCO3 ABG Total CO2 ABG O2 Saturation ABG Base Excess ABG Sodium VBG pH VBG pCO2 VBG pO2 VBG HCO3 VBG Total CO2 VBG O2 Saturation VBG Base Excess Hemoglobin Hematocrit Potassium Glucose Ionized Calcium FiO2 Sodium Chloride Carbon Dioxide Anion Gap BUN Creatinine GFR Calculation BUN/Creatinine Ratio POC Glucose 101 100 Calculated Osmolality Calcium Venous Ioniz Calcium Magnesium Total Bilirubin Direct Bilirubin AST ALT Alkaline Phosphatase Total Creatine Kinase CK-MB (CK-2) CK and CKMB Interp Troponin I Total Protein Albumin Globulin Albumin/Globulin Ratio Urine Color Urine Appearance Urine pH Ur Specific [place] Urine Protein Urine Glucose (UA) Urine Ketones Urine Blood Urine Nitrate Urine Bilirubin Urine Urobilinogen Urine Leukocytes Urine RBC Urine WBC Hyaline Casts Urine Mucus Ur Culture Indicated? Blood Type Antibody Screen Crossmatch 10/03/16 10/03/16 10/03/16 04:15 04:15 04:15 WBC RBC Hgb Hct MCV MCH MCHC RDW Plt Count MPV Neut % (Auto) Lymph % (Auto) [place] % (Auto) Eos % (Auto) Baso % (Auto) Neut # (Auto) Lymph # (Auto) [place] # (Auto) Eos # (Auto) Baso # (Auto) Total Counted Immature Gran % Nucleated RBC % Immature Gran # Segmented Neutrophils Band Neutrophils Lymphocytes Monocytes Nucleated RBCs # Platelet Estimate Hypochromasia INR PT Patient/Control Mix Circ Anticoag PTT Patient Temperature ABG pH 7.428 ABG pH at Pt Temp ABG pCO2 42.3 ABG pCO2 at Pt Temp ABG pO2 117.2 H ABG pO2 at Pt Temp ABG HCO3 27.3 H ABG Total CO2 28.6 H ABG O2 Saturation 98.1 ABG Base Excess 2.7 H ABG Sodium VBG pH VBG pCO2 VBG pO2 VBG HCO3 VBG Total CO2 VBG O2 Saturation VBG Base Excess Hemoglobin 12.2 L Hematocrit 36.0 L Potassium 4.6 4.6 Glucose 102 96 Ionized Calcium FiO2 Sodium 143 Chloride 106 Carbon Dioxide 29 Anion Gap 12.6 BUN 37 H Creatinine 1.91 H GFR Calculation 34 BUN/Creatinine Ratio 19.00 POC Glucose Calculated Osmolality 293.0 Calcium 8.3 L Venous Ioniz Calcium Magnesium 2.3 Total Bilirubin 1.30 H Direct Bilirubin 0.60 H AST 52 H ALT 26 Alkaline Phosphatase 64 Total Creatine Kinase 210 CK-MB (CK-2) 19.5 H CK and CKMB Interp 9.3 Troponin I 6.820 H Total Protein 4.9 L Albumin 2.8 L Globulin 2.1 L Albumin/Globulin Ratio 1.3 Urine Color Urine Appearance Urine pH Ur Specific [place] Urine Protein Urine Glucose (UA) Urine Ketones Urine Blood Urine Nitrate Urine Bilirubin Urine Urobilinogen Urine Leukocytes Urine RBC Urine WBC Hyaline Casts Urine Mucus Ur Culture Indicated? Blood Type Antibody Screen Crossmatch 10/03/16 05:08 WBC RBC Hgb Hct MCV MCH MCHC RDW Plt Count MPV Neut % (Auto) Lymph % (Auto) [place] % (Auto) Eos % (Auto) Baso % (Auto) Neut # (Auto) Lymph # (Auto) [place] # (Auto) Eos # (Auto) Baso # (Auto) Total Counted Immature Gran % Nucleated RBC % Immature Gran # Segmented Neutrophils Band Neutrophils Lymphocytes Monocytes Nucleated RBCs # Platelet Estimate Hypochromasia INR PT Patient/Control Mix Circ Anticoag PTT Patient Temperature ABG pH ABG pH at Pt Temp ABG pCO2 ABG pCO2 at Pt Temp ABG pO2 ABG pO2 at Pt Temp ABG HCO3 ABG Total CO2 ABG O2 Saturation ABG Base Excess ABG Sodium VBG pH VBG pCO2 VBG pO2 VBG HCO3 VBG Total CO2 VBG O2 Saturation VBG Base Excess Hemoglobin Hematocrit Potassium Glucose Ionized Calcium FiO2 Sodium Chloride Carbon Dioxide Anion Gap BUN Creatinine GFR Calculation BUN/Creatinine Ratio POC Glucose 110 H Calculated Osmolality Calcium Venous Ioniz Calcium Magnesium Total Bilirubin Direct Bilirubin AST ALT Alkaline Phosphatase Total Creatine Kinase CK-MB (CK-2) CK and CKMB Interp Troponin I Total Protein Albumin Globulin Albumin/Globulin Ratio Urine Color Urine Appearance Urine pH Ur Specific [place] Urine Protein Urine Glucose (UA) Urine Ketones Urine Blood Urine Nitrate Urine Bilirubin Urine Urobilinogen Urine Leukocytes Urine RBC Urine WBC Hyaline Casts Urine Mucus Ur Culture Indicated? Blood Type Antibody Screen Crossmatch Quality Measures - VTE Contraindication to Pharmacological VTE Prophylaxis: High Risk of Bleeding - Stroke Onset of Symptoms Date: 09/05/16 Onset of Symptoms Time: 15:30 Symptom Onset Unknown: No <Mariel Lloyd - Last Filed: 10/03/16 08:13> Assessment and Plan - Time spent with patient Time spent with patient: Less than 30 minutes (1) Hypertension Status: Chronic Current Visit: Yes Qualifiers: Hypertension type: essential hypertension Qualified Code(s): I10 - Essential (primary) hypertension (2) Pulmonary hypertension Status: Chronic Assessment and plan: This is better PA pressure 44 mmHg by [place]ika Current Visit: Yes (3) TIA (transient ischemic attack) Status: Acute Current Visit: Yes (4) Unsteady gait Status: Chronic Current Visit: Yes (5) Coronary artery disease Status: Chronic Current Visit: Yes Qualifiers: Coronary Disease-Associated Artery/Lesion type: [place] artery [place] vs. transplanted heart: lime heart Associated angina: without angina Qualified Code(s): I25.10 - Atherosclerotic heart disease of [place] coronary artery without angina pectoris (6) Diabetes mellitus Status: Chronic Current Visit: Yes Qualifiers: Diabetes mellitus type: type 2 Chronic kidney disease stage: stage 3 ( moderate) (7) Tissue aortic valve replacement during current hospitalization Status: Acute Current Visit: Yes (8) Chronic kidney disease Status: Chronic Current Visit: Yes Qualifiers: Chronic kidney disease stage: stage 3 (moderate) Qualified Code(s): N18.3 - Chronic kidney disease, stage 3 (moderate) Cardiology - PN: Subj Interval history: I saw and examined the patient with Ms. Hsu this morning. The patient is postop day 1 status post patch graft of saphenous vein graft to the left circumflex distribution as well as bioprosthetic aortic valve replacement. He continues to improve hemodynamically he is on no pressors at this time he has a decline in his PA pressures he is awake and responsive but remains intubated about to go on CPAP trials. He looks quite good. He remains in sinus rhythm at this point. Exam (Progress Note) - Constitutional Vitals: Period Temp Pulse Resp BP Sys/Hurtado Pulse Ox Last 24 Hr 94.6 F-98.7 F 68-111 10-25 91-155/40-63 97-100 Exam: The patient's exam is as above he has a very prominent S4 he has good symmetric bilateral chest excursion unremarkable pulmonary exam. He has no rub. He responds to verbal stimuli and answers close ended questions appropriately while intubated Result/EKG - Labs CBC & BMP: 10/03/16 04:15 10/03/16 04:15 Labs: Laboratory Results - last 24 hr 10/01/16 10/02/16 10/02/16 03:42 09:23 09:56 WBC RBC Hgb Hct MCV MCH MCHC RDW Plt Count MPV Neut % (Auto) Lymph % (Auto) [place] % (Auto) Eos % (Auto) Baso % (Auto) Neut # (Auto) Lymph # (Auto) [place] # (Auto) Eos # (Auto) Baso # (Auto) Total Counted Immature Gran % Nucleated RBC % Immature Gran # Segmented Neutrophils Band Neutrophils Lymphocytes Monocytes Nucleated RBCs # Platelet Estimate Hypochromasia INR PT Patient/Control Mix Circ Anticoag PTT Patient Temperature 36 34 ABG pH ABG pH at Pt Temp 7.508 7.581 ABG pCO2 ABG pCO2 at Pt Temp 38.5 32.5 ABG pO2 ABG pO2 at Pt Temp 35.4 34.8 ABG HCO3 ABG Total CO2 ABG O2 Saturation ABG Base Excess ABG Sodium 138 134 L VBG pH 7.493 7.535 VBG pCO2 40.4 L 37.5 L VBG pO2 38.0 42.8 H VBG HCO3 30.7 H 32.0 H VBG Total CO2 29.2 30.1 VBG O2 Saturation 77.1 84.3 VBG Base Excess 7.2 H 8.4 H Hemoglobin 7.4 L 6.6 L Hematocrit 23.1 L 20.8 L Potassium 3.1 L 3.5 Glucose 122 H 240 H Ionized Calcium FiO2 80.00 80.00 Sodium Chloride Carbon Dioxide Anion Gap BUN Creatinine GFR Calculation BUN/Creatinine Ratio POC Glucose Calculated Osmolality Calcium Venous Ioniz Calcium 1.01 L 1.00 L Magnesium Total Bilirubin Direct Bilirubin AST ALT Alkaline Phosphatase Total Creatine Kinase CK-MB (CK-2) CK and CKMB Interp Troponin I Total Protein Albumin Globulin Albumin/Globulin Ratio Blood Type O POSITIVE Antibody Screen Negative Crossmatch See Detail 10/02/16 10/02/16 10/02/16 10:33 10:55 11:44 WBC RBC Hgb Hct MCV MCH MCHC RDW Plt Count 46 L D MPV Neut % (Auto) Lymph % (Auto) [place] % (Auto) Eos % (Auto) Baso % (Auto) Neut # (Auto) Lymph # (Auto) [place] # (Auto) Eos # (Auto) Baso # (Auto) Total Counted Immature Gran % Nucleated RBC % Immature Gran # Segmented Neutrophils Band Neutrophils Lymphocytes Monocytes Nucleated RBCs # Platelet Estimate Hypochromasia INR PT Patient/Control Mix Circ Anticoag PTT Patient Temperature 33 35 ABG pH ABG pH at Pt Temp 7.619 7.592 ABG pCO2 ABG pCO2 at Pt Temp 28.5 29.5 ABG pO2 ABG pO2 at Pt Temp 31.3 31.6 ABG HCO3 ABG Total CO2 ABG O2 Saturation ABG Base Excess ABG Sodium 136 135 VBG pH 7.557 7.561 VBG pCO2 34.6 L 32.5 L VBG pO2 41.3 H 36.4 VBG HCO3 31.6 H 30.3 H VBG Total CO2 28.7 26.9 VBG O2 Saturation 83.2 80.0 VBG Base Excess 8.0 H 6.8 H Hemoglobin 7.9 L 8.9 L Hematocrit 24.6 L 27.6 L Potassium 3.2 L 3.7 Glucose 229 H 244 H Ionized Calcium FiO2 80.00 80.00 Sodium Chloride Carbon Dioxide Anion Gap BUN Creatinine GFR Calculation BUN/Creatinine Ratio POC Glucose Calculated Osmolality Calcium Venous Ioniz Calcium 1.01 L 0.99 L Magnesium Total Bilirubin Direct Bilirubin AST ALT Alkaline Phosphatase Total Creatine Kinase CK-MB (CK-2) CK and CKMB Interp Troponin I Total Protein Albumin Globulin Albumin/Globulin Ratio Blood Type Antibody Screen Crossmatch 10/02/16 10/02/16 10/02/16 11:44 12:50 12:50 WBC 7.5 RBC 2.26 L D Hgb 6.9 L D Hct 20.2 L MCV 89.4 MCH 31 MCHC 34.2 RDW 14.6 Plt Count 63 L D MPV 10.5 Neut % (Auto) 84.0 H Lymph % (Auto) 5.2 L [place] % (Auto) 7.8 Eos % (Auto) 1.7 Baso % (Auto) 0.1 Neut # (Auto) 6.3 Lymph # (Auto) 0.4 L [place] # (Auto) 0.6 Eos # (Auto) 0.1 Baso # (Auto) 0.0 Total Counted Immature Gran % 1.2 Nucleated RBC % 0.0 Immature Gran # 0.09 Segmented Neutrophils Band Neutrophils Lymphocytes Monocytes Nucleated RBCs # 0.00 Platelet Estimate Hypochromasia INR 1.4 PT Patient/Control Mix 14.8 D Circ Anticoag PTT 40.1 H Patient Temperature 37 ABG pH 7.518 H ABG pH at Pt Temp 7.518 ABG pCO2 36.6 ABG pCO2 at Pt Temp 36.6 ABG pO2 452.0 H ABG pO2 at Pt Temp 452.0 ABG HCO3 30.3 H ABG Total CO2 27.9 H ABG O2 Saturation 100.0 ABG Base Excess 6.5 H ABG Sodium 136 VBG pH VBG pCO2 VBG pO2 VBG HCO3 VBG Total CO2 VBG O2 Saturation VBG Base Excess Hemoglobin 7.4 L Hematocrit 23.0 L Potassium 3.6 Glucose 227 H Ionized Calcium 1.25 FiO2 Sodium Chloride Carbon Dioxide Anion Gap BUN Creatinine GFR Calculation BUN/Creatinine Ratio POC Glucose Calculated Osmolality Calcium Venous Ioniz Calcium Magnesium Total Bilirubin Direct Bilirubin AST ALT Alkaline Phosphatase Total Creatine Kinase CK-MB (CK-2) CK and CKMB Interp Troponin I Total Protein Albumin Globulin Albumin/Globulin Ratio Blood Type Antibody Screen Crossmatch 10/02/16 10/02/16 10/02/16 12:50 12:50 12:59 WBC RBC Hgb Hct MCV MCH MCHC RDW Plt Count MPV Neut % (Auto) Lymph % (Auto) [place] % (Auto) Eos % (Auto) Baso % (Auto) Neut # (Auto) Lymph # (Auto) [place] # (Auto) Eos # (Auto) Baso # (Auto) Total Counted Immature Gran % Nucleated RBC % Immature Gran # Segmented Neutrophils Band Neutrophils Lymphocytes Monocytes Nucleated RBCs # Platelet Estimate Hypochromasia INR PT Patient/Control Mix Circ Anticoag PTT Patient Temperature ABG pH 7.548 H ABG pH at Pt Temp ABG pCO2 33.1 L ABG pCO2 at Pt Temp ABG pO2 273.0 H ABG pO2 at Pt Temp ABG HCO3 30.0 H ABG Total CO2 27.1 H ABG O2 Saturation 100.0 ABG Base Excess 6.1 H ABG Sodium VBG pH VBG pCO2 VBG pO2 VBG HCO3 VBG Total CO2 VBG O2 Saturation VBG Base Excess Hemoglobin 7.0 L Hematocrit 22.0 L Potassium 3.5 3.4 L Glucose 199 H 201 H Ionized Calcium FiO2 Sodium 143 Chloride 102 Carbon Dioxide 30 Anion Gap 14.5 BUN 33 H Creatinine 1.40 H GFR Calculation 50 BUN/Creatinine Ratio 23.00 H POC Glucose Calculated Osmolality 297.0 Calcium 8.8 Venous Ioniz Calcium Magnesium 2.5 H Total Bilirubin 2.10 H Direct Bilirubin AST 35 ALT 20 Alkaline Phosphatase 48 Total Creatine Kinase 192 CK-MB (CK-2) 13.0 H CK and CKMB Interp 6.8 Troponin I 3.500 H Total Protein 4.3 L Albumin 2.5 L Globulin 1.8 L Albumin/Globulin Ratio 1.3 Blood Type Antibody Screen Crossmatch 10/02/16 10/02/16 10/02/16 14:14 15:00 16:13 WBC RBC Hgb Hct MCV MCH MCHC RDW Plt Count MPV Neut % (Auto) Lymph % (Auto) [place] % (Auto) Eos % (Auto) Baso % (Auto) Neut # (Auto) Lymph # (Auto) [place] # (Auto) Eos # (Auto) Baso # (Auto) Total Counted Immature Gran % Nucleated RBC % Immature Gran # Segmented Neutrophils Band Neutrophils Lymphocytes Monocytes Nucleated RBCs # Platelet Estimate Hypochromasia INR PT Patient/Control Mix Circ Anticoag PTT Patient Temperature ABG pH 7.516 H ABG pH at Pt Temp ABG pCO2 34.2 L ABG pCO2 at Pt Temp ABG pO2 155.0 H ABG pO2 at Pt Temp ABG HCO3 28.7 H ABG Total CO2 25.5 ABG O2 Saturation 99.4 ABG Base Excess 4.7 H ABG Sodium VBG pH VBG pCO2 VBG pO2 VBG HCO3 VBG Total CO2 VBG O2 Saturation VBG Base Excess Hemoglobin 8.5 L D Hematocrit 26.5 L Potassium 3.8 Glucose 180 H Ionized Calcium FiO2 Sodium Chloride Carbon Dioxide Anion Gap BUN Creatinine GFR Calculation BUN/Creatinine Ratio POC Glucose 236 H 210 H Calculated Osmolality Calcium Venous Ioniz Calcium Magnesium Total Bilirubin Direct Bilirubin AST ALT Alkaline Phosphatase Total Creatine Kinase CK-MB (CK-2) CK and CKMB Interp Troponin I Total Protein Albumin Globulin Albumin/Globulin Ratio Blood Type Antibody Screen Crossmatch 10/02/16 10/02/16 10/02/16 17:03 17:16 18:03 WBC RBC Hgb Hct MCV MCH MCHC RDW Plt Count MPV Neut % (Auto) Lymph % (Auto) [place] % (Auto) Eos % (Auto) Baso % (Auto) Neut # (Auto) Lymph # (Auto) [place] # (Auto) Eos # (Auto) Baso # (Auto) Total Counted Immature Gran % Nucleated RBC % Immature Gran # Segmented Neutrophils Band Neutrophils Lymphocytes Monocytes Nucleated RBCs # Platelet Estimate Hypochromasia INR PT Patient/Control Mix Circ Anticoag PTT Patient Temperature ABG pH 7.398 7.355 ABG pH at Pt Temp ABG pCO2 45.3 52.9 H ABG pCO2 at Pt Temp ABG pO2 117.0 H 96.4 H ABG pO2 at Pt Temp ABG HCO3 26.8 H 26.9 H ABG Total CO2 25.1 26.3 ABG O2 Saturation 98.5 97.5 ABG Base Excess 2.6 H 2.8 H ABG Sodium VBG pH VBG pCO2 VBG pO2 VBG HCO3 VBG Total CO2 VBG O2 Saturation VBG Base Excess Hemoglobin 11.1 L D 12.0 L Hematocrit 34.3 L 37.1 L Potassium 4.6 4.2 Glucose 158 H 136 H Ionized Calcium FiO2 Sodium Chloride Carbon Dioxide Anion Gap BUN Creatinine GFR Calculation BUN/Creatinine Ratio POC Glucose 159 H Calculated Osmolality Calcium Venous Ioniz Calcium Magnesium Total Bilirubin Direct Bilirubin AST ALT Alkaline Phosphatase Total Creatine Kinase CK-MB (CK-2) CK and CKMB Interp Troponin I Total Protein Albumin Globulin Albumin/Globulin Ratio Blood Type Antibody Screen Crossmatch 10/02/16 10/02/16 10/02/16 19:05 19:55 20:59 WBC RBC Hgb Hct MCV MCH MCHC RDW Plt Count MPV Neut % (Auto) Lymph % (Auto) [place] % (Auto) Eos % (Auto) Baso % (Auto) Neut # (Auto) Lymph # (Auto) [place] # (Auto) Eos # (Auto) Baso # (Auto) Total Counted Immature Gran % Nucleated RBC % Immature Gran # Segmented Neutrophils Band Neutrophils Lymphocytes Monocytes Nucleated RBCs # Platelet Estimate Hypochromasia INR PT Patient/Control Mix Circ Anticoag PTT Patient Temperature ABG pH ABG pH at Pt Temp ABG pCO2 ABG pCO2 at Pt Temp ABG pO2 ABG pO2 at Pt Temp ABG HCO3 ABG Total CO2 ABG O2 Saturation ABG Base Excess ABG Sodium VBG pH VBG pCO2 VBG pO2 VBG HCO3 VBG Total CO2 VBG O2 Saturation VBG Base Excess Hemoglobin Hematocrit Potassium Glucose Ionized Calcium FiO2 Sodium Chloride Carbon Dioxide Anion Gap BUN Creatinine GFR Calculation BUN/Creatinine Ratio POC Glucose 104 106 74 Calculated Osmolality Calcium Venous Ioniz Calcium Magnesium Total Bilirubin Direct Bilirubin AST ALT Alkaline Phosphatase Total Creatine Kinase CK-MB (CK-2) CK and CKMB Interp Troponin I Total Protein Albumin Globulin Albumin/Globulin Ratio Blood Type Antibody Screen Crossmatch 10/02/16 10/02/16 10/02/16 21:00 21:00 21:55 WBC RBC Hgb Hct MCV MCH MCHC RDW Plt Count MPV Neut % (Auto) Lymph % (Auto) [place] % (Auto) Eos % (Auto) Baso % (Auto) Neut # (Auto) Lymph # (Auto) [place] # (Auto) Eos # (Auto) Baso # (Auto) Total Counted Immature Gran % Nucleated RBC % Immature Gran # Segmented Neutrophils Band Neutrophils Lymphocytes Monocytes Nucleated RBCs # Platelet Estimate Hypochromasia INR PT Patient/Control Mix Circ Anticoag PTT Patient Temperature ABG pH 7.415 ABG pH at Pt Temp ABG pCO2 44.1 ABG pCO2 at Pt Temp ABG pO2 118.0 H ABG pO2 at Pt Temp ABG HCO3 27.4 H ABG Total CO2 25.3 ABG O2 Saturation 99.0 ABG Base Excess 3.3 H ABG Sodium VBG pH VBG pCO2 VBG pO2 VBG HCO3 VBG Total CO2 VBG O2 Saturation VBG Base Excess Hemoglobin 11.1 L Hematocrit 34.3 L Potassium 4.1 Glucose 83 Ionized Calcium FiO2 Sodium Chloride Carbon Dioxide Anion Gap BUN Creatinine GFR Calculation BUN/Creatinine Ratio POC Glucose 103 Calculated Osmolality Calcium Venous Ioniz Calcium Magnesium Total Bilirubin Direct Bilirubin AST ALT Alkaline Phosphatase Total Creatine Kinase 213 CK-MB (CK-2) 15.3 H CK and CKMB Interp 7.2 Troponin I 6.430 H D Total Protein Albumin Globulin Albumin/Globulin Ratio Blood Type Antibody Screen Crossmatch 10/02/16 10/02/16 10/03/16 23:04 23:56 00:00 WBC RBC Hgb Hct MCV MCH MCHC RDW Plt Count MPV Neut % (Auto) Lymph % (Auto) [place] % (Auto) Eos % (Auto) Baso % (Auto) Neut # (Auto) Lymph # (Auto) [place] # (Auto) Eos # (Auto) Baso # (Auto) Total Counted Immature Gran % Nucleated RBC % Immature Gran # Segmented Neutrophils Band Neutrophils Lymphocytes Monocytes Nucleated RBCs # Platelet Estimate Hypochromasia INR PT Patient/Control Mix Circ Anticoag PTT Patient Temperature ABG pH 7.437 ABG pH at Pt Temp ABG pCO2 41.7 ABG pCO2 at Pt Temp ABG pO2 125.0 H ABG pO2 at Pt Temp ABG HCO3 27.5 H ABG Total CO2 28.8 H ABG O2 Saturation 98.3 ABG Base Excess 3.0 H ABG Sodium VBG pH VBG pCO2 VBG pO2 VBG HCO3 VBG Total CO2 VBG O2 Saturation VBG Base Excess Hemoglobin 12.2 L Hematocrit 36.0 L Potassium 4.5 Glucose 81 Ionized Calcium FiO2 Sodium Chloride Carbon Dioxide Anion Gap BUN Creatinine GFR Calculation BUN/Creatinine Ratio POC Glucose 100 87 Calculated Osmolality Calcium Venous Ioniz Calcium Magnesium Total Bilirubin Direct Bilirubin AST ALT Alkaline Phosphatase Total Creatine Kinase CK-MB (CK-2) CK and CKMB Interp Troponin I Total Protein Albumin Globulin Albumin/Globulin Ratio Blood Type Antibody Screen Crossmatch 10/03/16 10/03/16 10/03/16 01:01 01:47 02:58 WBC RBC Hgb Hct MCV MCH MCHC RDW Plt Count MPV Neut % (Auto) Lymph % (Auto) [place] % (Auto) Eos % (Auto) Baso % (Auto) Neut # (Auto) Lymph # (Auto) [place] # (Auto) Eos # (Auto) Baso # (Auto) Total Counted Immature Gran % Nucleated RBC % Immature Gran # Segmented Neutrophils Band Neutrophils Lymphocytes Monocytes Nucleated RBCs # Platelet Estimate Hypochromasia INR PT Patient/Control Mix Circ Anticoag PTT Patient Temperature ABG pH ABG pH at Pt Temp ABG pCO2 ABG pCO2 at Pt Temp ABG pO2 ABG pO2 at Pt Temp ABG HCO3 ABG Total CO2 ABG O2 Saturation ABG Base Excess ABG Sodium VBG pH VBG pCO2 VBG pO2 VBG HCO3 VBG Total CO2 VBG O2 Saturation VBG Base Excess Hemoglobin Hematocrit Potassium Glucose Ionized Calcium FiO2 Sodium Chloride Carbon Dioxide Anion Gap BUN Creatinine GFR Calculation BUN/Creatinine Ratio POC Glucose 86 96 101 Calculated Osmolality Calcium Venous Ioniz Calcium Magnesium Total Bilirubin Direct Bilirubin AST ALT Alkaline Phosphatase Total Creatine Kinase CK-MB (CK-2) CK and CKMB Interp Troponin I Total Protein Albumin Globulin Albumin/Globulin Ratio Blood Type Antibody Screen Crossmatch 10/03/16 10/03/16 10/03/16 04:14 04:15 04:15 WBC 11.5 D RBC 3.87 D Hgb 11.6 L D Hct 34.2 L MCV 88.4 MCH 30 MCHC 33.9 RDW 15.1 Plt Count 43 L D MPV 10.7 Neut % (Auto) 90.1 H Lymph % (Auto) 4.5 L [place] % (Auto) 5.0 Eos % (Auto) 0.0 Baso % (Auto) 0.1 Neut # (Auto) 10.4 H Lymph # (Auto) 0.5 L [place] # (Auto) 0.6 Eos # (Auto) 0.0 Baso # (Auto) 0.0 Total Counted 100 Immature Gran % 0.3 Nucleated RBC % 0.0 Immature Gran # 0.04 Segmented Neutrophils 90 H Band Neutrophils 2 Lymphocytes 4 L Monocytes 4 Nucleated RBCs # 0.00 Platelet Estimate Decreased Hypochromasia 2+ INR PT Patient/Control Mix Circ Anticoag PTT Patient Temperature ABG pH ABG pH at Pt Temp ABG pCO2 ABG pCO2 at Pt Temp ABG pO2 ABG pO2 at Pt Temp ABG HCO3 ABG Total CO2 ABG O2 Saturation ABG Base Excess ABG Sodium VBG pH VBG pCO2 VBG pO2 VBG HCO3 VBG Total CO2 VBG O2 Saturation VBG Base Excess Hemoglobin Hematocrit Potassium 4.6 Glucose 102 Ionized Calcium FiO2 Sodium 143 Chloride 106 Carbon Dioxide 29 Anion Gap 12.6 BUN 37 H Creatinine 1.91 H GFR Calculation 34 BUN/Creatinine Ratio 19.00 POC Glucose 100 Calculated Osmolality 293.0 Calcium 8.3 L Venous Ioniz Calcium Magnesium 2.3 Total Bilirubin 1.30 H Direct Bilirubin 0.60 H AST 52 H ALT 26 Alkaline Phosphatase 64 Total Creatine Kinase CK-MB (CK-2) CK and CKMB Interp Troponin I Total Protein 4.9 L Albumin 2.8 L Globulin 2.1 L Albumin/Globulin Ratio 1.3 Blood Type Antibody Screen Crossmatch 10/03/16 10/03/16 10/03/16 04:15 04:15 05:08 WBC RBC Hgb Hct MCV MCH MCHC RDW Plt Count MPV Neut % (Auto) Lymph % (Auto) [place] % (Auto) Eos % (Auto) Baso % (Auto) Neut # (Auto) Lymph # (Auto) [place] # (Auto) Eos # (Auto) Baso # (Auto) Total Counted Immature Gran % Nucleated RBC % Immature Gran # Segmented Neutrophils Band Neutrophils Lymphocytes Monocytes Nucleated RBCs # Platelet Estimate Hypochromasia INR PT Patient/Control Mix Circ Anticoag PTT Patient Temperature ABG pH 7.428 ABG pH at Pt Temp ABG pCO2 42.3 ABG pCO2 at Pt Temp ABG pO2 117.2 H ABG pO2 at Pt Temp ABG HCO3 27.3 H ABG Total CO2 28.6 H ABG O2 Saturation 98.1 ABG Base Excess 2.7 H ABG Sodium VBG pH VBG pCO2 VBG pO2 VBG HCO3 VBG Total CO2 VBG O2 Saturation VBG Base Excess Hemoglobin 12.2 L Hematocrit 36.0 L Potassium 4.6 Glucose 96 Ionized Calcium FiO2 Sodium Chloride Carbon Dioxide Anion Gap BUN Creatinine GFR Calculation BUN/Creatinine Ratio POC Glucose 110 H Calculated Osmolality Calcium Venous Ioniz Calcium Magnesium Total Bilirubin Direct Bilirubin AST ALT Alkaline Phosphatase Total Creatine Kinase 210 CK-MB (CK-2) 19.5 H CK and CKMB Interp 9.3 Troponin I 6.820 H Total Protein Albumin Globulin Albumin/Globulin Ratio Blood Type Antibody Screen Crossmatch
--- NOTE | 2016-10-03 07:59 | XRay Report ---
History: Status post chest tube removal. Evaluate for pneumothorax. Postop thoracotomy Date: 10/03/2016 Study: Chest x-ray AP portable Comparison exam: 10/02/2016 There is a small area increased lucency which represents an equivocal less than 5% right basilar pneumothorax. The chest tubes are stable in appearance. The endotracheal tube, nasogastric tube, right subclavian [place] catheter, and right IJ central line are unchanged. There is stable cardiomegaly. The mediastinal contours are unchanged in this patient status post median sternotomy. There is no interval worsening in the appearance of the lungs. There is some mild hazy edema and/or atelectasis in the right lung and left lower lung. Osseous structures are similar. Impression: Equivocal miniscule right basilar pneumothorax. Otherwise unchanged PROCEDURE INTERPRETED AT [facility] DEPARTMENT OF RADIOLOGY Final Report Signed by: Dr. Nadja Muse
[2016-10-03] MEDS ORDERED: INSULIN REGULAR 100 UNIT/ML SUBCUT SCH (08:00)
[2016-10-03] MEDS: FUROSEMIDE INJ 100 MG in SODIUM CHLORIDE 0.9% 90 ML IV SCH ×2 (08:18→17:22)
--- NOTE | 2016-10-03 08:18 | EKG Report ---
Stationary ECG Study [facility] Test Date: 10/03/2016 8:18:30 AM Pat Name: ISA GRAF Department: Room: 104 Gender: M Shuttle Driver: ARNIE : [id number] Requested by: Thaddeus Ibrahim Order Number: [id number] Tana MD: NIRAJ DUPREE Intervals [place] Rate: 108 P: 17 IA: 140 QRS: 53 QRSD: 80 T: 27 QT: 335 QTc: 398 Interpretive Statements SINUS TACHYCARDIA Electronically Signed On 10-04-16 16:28:22 CDT by NIRAJ DUPREE [email or web address]
[2016-10-03] MEDS: CEFUROXIME INJ 1,500 MG in SODIUM CHLORIDE 0.9% 100 ML IV SCH ×2 (08:27→20:22)
[2016-10-03] MEDS: METOPROLOL TARTRATE 25 MG TABLET PO SCH ×2 (08:35→20:21)
[2016-10-03 08:50] LABS: ABG Base Excess 1.5 MMOL/L (-2.5-2.5); ABG HCO3 26.4 MMOL/L (20-26); ABG Oxygen Saturation 98.3 % (95-100); ABG PH 7.406 (7.35-7.45); ABG PO2 138.2 MM HG (80-95); ABG TCO2 27.7 MMOL/L (23-27); Glucose Heart Surgery 112 MG/DL (74-106); Hemoglobin Heart Surgery 12.3 G/DL (14.0-18.0); Potassium Heart/CVR 4.4 MMOL/L (3.5-5.1)
[2016-10-03] MEDS: CHLORHEXIDINE 0.12% ORAL RINSE 60 ML BOTTLE SWISH/SPIT SCH ×2 (09:21→20:31)
[2016-10-03 10:33] LABS: ABG Base Excess 1.4 MMOL/L (-2.5-2.5); ABG HCO3 25.7 MMOL/L (20-26); ABG Oxygen Saturation 99.1 % (95-100); ABG PCO2 42.4 MM HG (35-48); ABG PH 7.402 (7.35-7.45); ABG TCO2 23.5 MMOL/L (23-27); Glucose Heart Surgery 125 MG/DL (74-106); Hematocrit Heart Surgery 36.3 PERCENT (42-52); Hemoglobin Heart Surgery 11.8 G/DL (14.0-18.0); Potassium Heart/CVR 4.4 MMOL/L (3.5-5.1)
--- NOTE | 2016-10-03 11:29 | Pathology Report from [facility] ---
[facility] ACCESSION # : [id number] PATIENT NAME : Isa Frazier ORDERING DR : REMEDIOS MERAZ MD CLINICAL HX: Post CABG 07/2001 - Progression of disease - Aortic stenosis POST-OP DX: Same SPECIMEN INFO: #1 Aortic valve tissue #2 Sternal wires GROSS DESCRIPTION: #1 Received in formalin labeled ISA FRAZIER & #1 AORTIC VALVE TISSUE is an aggregate of partially calcified valve tissue measuring 3.0 x 2.5 cm. 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 DIAGNOSIS FOR ISA FRAZIER: #1 AORTIC VALVE TISSUE: Degeneration, atherosclerosis.#2 Sternal wires, gross only. COLLECTED DATE: 10/02/2016 [facility] REPORT DATE: 10/03/2016 ELECTRONICALLY SIGNED BY: Alexandria Mckeon M.D. 10/03/2016 - 10:05:57 MTDPo
[2016-10-03 11:34] LABS: ABG HCO3 27.3 MMOL/L (20-26); ABG Oxygen Saturation 98.5 % (95-100); ABG PCO2 45.9 MM HG (35-48); ABG PH 7.393 (7.35-7.45); ABG PO2 145.2 MM HG (80-95); ABG TCO2 28.8 MMOL/L (23-27); Glucose Heart Surgery 116 MG/DL (74-106); Hemoglobin Heart Surgery 12.3 G/DL (14.0-18.0); Potassium Heart/CVR 4.4 MMOL/L (3.5-5.1)
[2016-10-03] MEDS: INSULIN REGULAR 100 UNIT/ML SUBCUT SCH ×3 (12:11→20:22)
[2016-10-03 14:52] LABS: CKMB % 9.8 %
[2016-10-03 14:57] LABS: Troponin I Only 5.16 NG/ML (0.00-0.045)
[2016-10-03 18:40] LABS: VBG Base Excess 1.5 MEQ/L (0-4); VBG HCO3 26.8 MEQ/L (24-28); VBG Oxygen Saturation 63.9 %; VBG PCO2 44.8 MMHG (41-51); VBG PH 7.394; VBG PO2 28.4 MMHG (17-40)
--- NOTE | 2016-10-03 21:55 | Nephrology Progress Note ---
Nephrology - PN: Subj Interval history: He has been extubated. He is awake and alert. He denies shortness of breath. Exam (PN)-Nephrology - Vital Signs Vital signs: Period Temp Pulse Resp BP Sys/[place]urtado Pulse Ox Last 24 Hr 97.6 F-98.6 F 87-111 10-32 106-149/40-60 95-100 Exam: Gen.: Alert and oriented x3. ENT: Pupils equal round reactive to light. EOMs intact. Mucous membranes moist. Neck: Supple. No JVD or bruit. Cardiovascular: Regular rate and rhythm. No murmur rub or gallop Lungs: Clear Abdomen: Soft. Nontender. Positive bowel sounds. No organomegaly Extremities: 1+ edema - Lab 10/03/16 04:15 10/03/16 04:15 Most recent lab results ABG pH 7.393 (7.35-7.45) 10/03/16 11:33 ABG pCO2 45.9 MM HG (35-48) 10/03/16 11:33 ABG pO2 145.2 MM HG (80-95) H 10/03/16 11:33 ABG HCO3 27.3 MMOL/L (20-26) H 10/03/16 11:33 ABG O2 Saturation 98.5 % (95-100) 10/03/16 11:33 Calcium 8.3 MG/DL (8.5-10.1) L 10/03/16 04:15 Magnesium 2.3 MG/DL (1.8-2.4) 10/03/16 04:15 Assessment and Plan (1) Acute on chronic renal failure Status: Acute Assessment and plan: 86-year-old man with: * CRF stage III. Creatinine is slightly higher than preop. Urine output is borderline. He is now on Lasix infusion. * Aortic stenosis. Status post valve replacement * CAD. * Diabetes mellitus * Hypertension Current Visit: Yes (2) Near syncope Status: Acute Current Visit: Yes (3) Pleural effusion Status: Acute Current Visit: Yes (4) Coronary artery disease Status: Chronic Current Visit: Yes Qualifiers: Coronary Disease-Associated Artery/Lesion type: [place] artery [place] vs. transplanted heart: [place] heart Associated angina: without angina Qualified Code(s): I25.10 - Atherosclerotic heart disease of [place] coronary artery without angina pectoris (5) Diabetes mellitus Status: Chronic Current Visit: Yes Qualifiers: Diabetes mellitus type: type 2 Chronic kidney disease stage: stage 3 ( moderate) (6) Hypertension Status: Chronic Current Visit: Yes Qualifiers: Hypertension type: essential hypertension Qualified Code(s): I10 - Essential (primary) hypertension (7) Severe aortic stenosis Status: Chronic Current Visit: Yes (8) Bradycardia Status: Resolved Current Visit: Yes Specialty Discharge - Follow Up or Referrals
[2016-10-04] MEDS: INSULIN REGULAR 100 UNIT/ML SUBCUT SCH ×5 (00:15→16:53)
[2016-10-04] MEDS: MORPHINE 2 MG/1 ML SYRINGE IV PRN (01:20)
[2016-10-04 03:04] LABS: Basophils % 0.1 % (0.0-0.8); Eosinophils % 0.3 % (0.00-10.9); Hematocrit 32.7 VOL% (42.0-52.0); Immature Granulocytes % 0.4 %; Immature Granulocytes Absolute 0.05 #; Lymphocytes # 1.1 10*3/uL (1.4-4.0); Lymphocytes % 9.3 % (21.2-54.2); Mean Corpuscular HGB Conc 33.6 GM/DL (32-36); Mean Corpuscular Hemoglobin 30 PG (27-34); Mean Corpuscular Volume 88.9 FL (87-102); Mean Platelet Volume 10.8 FL (9.6-12.0); Monocytes # 1.4 10*3/uL (0.11-0.8); Monocytes % 11.8 % (1.7-12.7); Neutrophils # 8.9 10*3/uL (1.4-7.4); Neutrophils % 78.1 % (38.7-73.9); Red Blood Count 3.68 MC/CUMM (3.8-5.5); Red Cell Distribution Width 15.4 % (9.3-17.3); White Blood Count 11.4 T/CUMM (4-12)
[2016-10-04 03:09] LABS: Platelet Count 42 T/CUMM (130-400)
[2016-10-04 03:28] LABS: Burr Cells 1+; Ovalocytes 1+; Platelet Estimate Decreased
[2016-10-04] MEDS: FUROSEMIDE INJ 100 MG in SODIUM CHLORIDE 0.9% 90 ML IV SCH (03:29)
[2016-10-04 03:57] LABS: Albumin 2.7 G/DL (3.4-5.0); Bilirubin,Direct 0.4 MG/DL (0.0-0.20); Bilirubin,Total 0.9 MG/DL (0.2-1.0); Calcium 8.1 MG/DL (8.5-10.1); Magnesium 2.1 MG/DL (1.8-2.4); Osmolality,Calculated 291.7 MOS/KG (273-304); Potassium 4.2 MMOL/L (3.5-5.1); Total Protein 5.1 G/DL (6.4-8.3)
--- NOTE | 2016-10-04 06:21 | Cardiothoracic Progress Note ---
Cardiothoracic Subjective Interval history: Patient looks and feels okay. He is alert oriented and extubated. Vital signs have been stable and cardiac output is around 4 L/min. His O2 sats have been 98 -100%. Creatinine this morning is 2.1 and urine output is excellent on a Lasix infusion. Going to stop the Lasix infusion and switch to periodic Lasix. I have clamped his mediastinal chest tubes and hopefully we can get those out later this morning but will plan to leave his right sided chest tube in place for a day or 2. Overall his progress is satisfactory. Exam (Progress Note) - Constitutional Vitals: Period Temp Pulse Resp BP Sys/Hurtado Pulse Ox Last 24 Hr 97.8 F-98.3 F 87-111 10-32 110-148/40-54 95-100 Result/EKG - Labs CBC & BMP: 10/04/16 02:55 10/04/16 02:55 Labs: Laboratory Results - last 24 hr 10/01/16 10/03/16 10/03/16 03:42 06:09 08:45 WBC RBC Hgb Hct MCV MCH MCHC RDW Plt Count MPV Neut % (Auto) Lymph % (Auto) Hayes % (Auto) Eos % (Auto) Baso % (Auto) Neut # (Auto) Lymph # (Auto) Hayes # (Auto) Eos # (Auto) Baso # (Auto) Immature Gran % Nucleated RBC % Immature Gran # Nucleated RBCs # Platelet Estimate Anisocytosis Ovalocytes [place] Cells ABG pH 7.406 ABG pCO2 43.0 ABG pO2 138.2 H ABG HCO3 26.4 H ABG Total CO2 27.7 H ABG O2 Saturation 98.3 ABG Base Excess 1.5 VBG pH VBG pCO2 VBG pO2 VBG HCO3 VBG Total CO2 VBG O2 Saturation VBG Base Excess Hemoglobin 12.3 L Hematocrit 36.0 L Potassium 4.4 Glucose 112 H FiO2 Sodium Chloride Carbon Dioxide Anion Gap BUN Creatinine GFR Calculation BUN/Creatinine Ratio POC Glucose 118 H Calculated Osmolality Calcium Magnesium Total Bilirubin Direct Bilirubin AST ALT Alkaline Phosphatase Total Creatine Kinase CK-MB (CK-2) CK and CKMB Interp Troponin I Total Protein Albumin Globulin Albumin/Globulin Ratio Crossmatch See Detail 10/03/16 10/03/16 10/03/16 10:32 11:33 14:15 WBC RBC Hgb Hct MCV MCH MCHC RDW Plt Count MPV Neut % (Auto) Lymph % (Auto) Hayes % (Auto) Eos % (Auto) Baso % (Auto) Neut # (Auto) Lymph # (Auto) Hayes # (Auto) Eos # (Auto) Baso # (Auto) Immature Gran % Nucleated RBC % Immature Gran # Nucleated RBCs # Platelet Estimate Anisocytosis Ovalocytes [place] Cells ABG pH 7.402 7.393 ABG pCO2 42.4 45.9 ABG pO2 135.0 H 145.2 H ABG HCO3 25.7 27.3 H ABG Total CO2 23.5 28.8 H ABG O2 Saturation 99.1 98.5 ABG Base Excess 1.4 2.0 VBG pH VBG pCO2 VBG pO2 VBG HCO3 VBG Total CO2 VBG O2 Saturation VBG Base Excess Hemoglobin 11.8 L 12.3 L Hematocrit 36.3 L 36.0 L Potassium 4.4 4.4 Glucose 125 H 116 H FiO2 Sodium Chloride Carbon Dioxide Anion Gap BUN Creatinine GFR Calculation BUN/Creatinine Ratio POC Glucose Calculated Osmolality Calcium Magnesium Total Bilirubin Direct Bilirubin AST ALT Alkaline Phosphatase Total Creatine Kinase 177 CK-MB (CK-2) 17.4 H CK and CKMB Interp 9.8 Troponin I 5.160 H D Total Protein Albumin Globulin Albumin/Globulin Ratio Crossmatch 10/03/16 10/03/16 10/03/16 16:03 18:29 18:38 WBC RBC Hgb Hct MCV MCH MCHC RDW Plt Count MPV Neut % (Auto) Lymph % (Auto) Hayes % (Auto) Eos % (Auto) Baso % (Auto) Neut # (Auto) Lymph # (Auto) Hayes # (Auto) Eos # (Auto) Baso # (Auto) Immature Gran % Nucleated RBC % Immature Gran # Nucleated RBCs # Platelet Estimate Anisocytosis Ovalocytes [place] Cells ABG pH ABG pCO2 ABG pO2 ABG HCO3 ABG Total CO2 ABG O2 Saturation ABG Base Excess VBG pH 7.394 7.394 VBG pCO2 44.8 VBG pO2 28.4 VBG HCO3 26.8 VBG Total CO2 28.1 VBG O2 Saturation 63.9 VBG Base Excess 1.5 Hemoglobin Hematocrit Potassium Glucose FiO2 0.00 Sodium Chloride Carbon Dioxide Anion Gap BUN Creatinine GFR Calculation BUN/Creatinine Ratio POC Glucose 213 H Calculated Osmolality Calcium Magnesium Total Bilirubin Direct Bilirubin AST ALT Alkaline Phosphatase Total Creatine Kinase CK-MB (CK-2) CK and CKMB Interp Troponin I Total Protein Albumin Globulin Albumin/Globulin Ratio Crossmatch 10/03/16 10/03/16 10/04/16 20:05 23:42 02:55 WBC 11.4 RBC 3.68 L Hgb 11.0 L Hct 32.7 L MCV 88.9 MCH 30 MCHC 33.6 RDW 15.4 Plt Count 42 L MPV 10.8 Neut % (Auto) 78.1 H Lymph % (Auto) 9.3 L Hayes % (Auto) 11.8 Eos % (Auto) 0.3 Baso % (Auto) 0.1 Neut # (Auto) 8.9 H Lymph # (Auto) 1.1 L Hayes # (Auto) 1.4 H Eos # (Auto) 0.0 Baso # (Auto) 0.0 Immature Gran % 0.4 Nucleated RBC % 0.0 Immature Gran # 0.05 Nucleated RBCs # 0.00 Platelet Estimate Decreased Anisocytosis Ovalocytes 1+ Katheryn Cells 1+ ABG pH ABG pCO2 ABG pO2 ABG HCO3 ABG Total CO2 ABG O2 Saturation ABG Base Excess VBG pH VBG pCO2 VBG pO2 VBG HCO3 VBG Total CO2 VBG O2 Saturation VBG Base Excess Hemoglobin Hematocrit Potassium Glucose FiO2 Sodium Chloride Carbon Dioxide Anion Gap BUN Creatinine GFR Calculation BUN/Creatinine Ratio POC Glucose 288 H 266 H Calculated Osmolality Calcium Magnesium Total Bilirubin Direct Bilirubin AST ALT Alkaline Phosphatase Total Creatine Kinase CK-MB (CK-2) CK and CKMB Interp Troponin I Total Protein Albumin Globulin Albumin/Globulin Ratio Crossmatch 10/04/16 02:55 WBC RBC Hgb Hct MCV MCH MCHC RDW Plt Count MPV Neut % (Auto) Lymph % (Auto) Hayes % (Auto) Eos % (Auto) Baso % (Auto) Neut # (Auto) Lymph # (Auto) Hayes # (Auto) Eos # (Auto) Baso # (Auto) Immature Gran % Nucleated RBC % Immature Gran # Nucleated RBCs # Platelet Estimate Anisocytosis Ovalocytes [place] Cells ABG pH ABG pCO2 ABG pO2 ABG HCO3 ABG Total CO2 ABG O2 Saturation ABG Base Excess VBG pH VBG pCO2 VBG pO2 VBG HCO3 VBG Total CO2 VBG O2 Saturation VBG Base Excess Hemoglobin Hematocrit Potassium 4.2 Glucose 160 H FiO2 Sodium 138 Chloride 101 Carbon Dioxide 30 Anion Gap 11.2 BUN 51 H D Creatinine 2.10 H GFR Calculation 32 BUN/Creatinine Ratio 24.00 H POC Glucose Calculated Osmolality 291.7 Calcium 8.1 L Magnesium 2.1 Total Bilirubin 0.90 Direct Bilirubin 0.40 H AST 44 H ALT 28 Alkaline Phosphatase 68 Total Creatine Kinase CK-MB (CK-2) CK and CKMB Interp Troponin I Total Protein 5.1 L Albumin 2.7 L Globulin 2.4 Albumin/Globulin Ratio 1.1 Crossmatch Quality Measures - VTE Contraindication to Pharmacological VTE Prophylaxis: High Risk of Bleeding - Stroke Onset of Symptoms Date: 09/05/16 Onset of Symptoms Time: 15:30 Symptom Onset Unknown: No Specialty Discharge - Follow Up or Referrals
--- NOTE | 2016-10-04 06:40 | Pulmonology Progress Note ---
Pulmonary - PN: Subj Interval history: This 86-year-old white male has congestive heart failure due to aortic stenosis. Also has atherosclerotic heart disease with previous coronary bypass surgery. Needs to have his IV aortic valve replaced. He has a right pleural effusion. His chest x-ray looks a little bit better today as far as the pulmonary edema is concerned. However we gave him Lasix yesterday and his creatinine has risen a little more. I think we would do best to get the right pleural fluid drained in preparation for surgery. Will ask interventional radiology to do this since it appears to be loculated laterally and would be safely done with ultrasound guidance. Patient is not sleeping well. Should tolerate some Ativan at bedtime. Quite anxious. I should note that the reason he has pleural fluid on the right and not the left is that he has had a previous left decortication. 09/18/2016 we have tried to diurese him and it has not been very successful. His creatinine has risen. He had a right thoracentesis with removal of 800 mL of fluid but he had his CT scan yesterday still showed significant right effusion. The pleural fluid is a transudate. Certainly think this is due to congestive heart failure, due to his aortic stenosis. It will be very difficult to treat his heart failure without the valve being replaced. However he is at high risk for surgery given his fragile state and acute kidney injury with Lasix and low cardiac output. Will ask nephrology to see if they can help us with this. Patient at present is about the same as far as her shortness of breath. He is empirically on antibiotics. 09/19/2016 he continues to complain of dyspnea. Primarily says he has trouble breathing through his nose. He is on 2 different nose sprays in his nasal passages appear open on my exam. I think is primarily short of breath related to his congestive heart failure/aortic stenosis. Renal function is a little better. Perhaps getting further out from contrast studies is helping. We do need to try to diurese him further. Nephrology is following as well. 09/20/2016 patient feels a little better sitting up in the chair. However his chest x-ray shows that the right pleural effusion has increased in size. Having a difficult time diuresing him with his creatinine 2.8. Would recommend putting a pleural catheter in the right side to drain this. Hopefully this will help us prep him for possible aortic valve replacement. The pleural effusion is due to congestive heart failure, however they are having a difficult time diuresing him. 09/21/2016 breathing is better since getting the pleural catheter. Chest x-ray today pending. Renal function getting a little better. Hopefully can plan aortic valve surgery soon. 09/22/2016 patient feels a little better. Should be able to tolerate nasal biprong's now. Chest x-ray shows the right pleural effusion has been evacuated. Put out about 200 mL from chest tube since yesterday morning. Need to keep it in for now. Renal function reports are pending from this morning. He does appear to be holding his own layer. Still has some peripheral edema and we need to bump with Lasix again. In my opinion he will need to have aortic valve surgery in order to get back to any meaningful life at home. Otherwise he will be a bed to chair existence. Certainly some risk involved as far as postoperative renal function and/or respiratory failure, but I favor proceeding with surgery next week. 09/23/2016 put out another 400 mL from his chest tube yesterday. Still has peripheral edema. We need to diurese him further. Renal insufficiency makes it difficult. Dr. Mehta wants to do a CT angiogram to further evaluate his aortic arch. His creatinine is down to 2.3. I feel sure further contrast would bump his creatinine up above 3 again and perhaps worse. I do think he would be better off having surgery then not having surgery. I do not think he can go home and come back as he still has a pleural catheter in. We may consider doing a pleurodesis, which is unusual for a transudative type effusion , and only works about half the time in this situation. 09/24/2016 his right pleural catheter came out during the night. Chest x-ray this morning shows the right lung well expanded. He does have some interstitial edema and some interstitial scarring. Creatinine has come down further to 2.1. We need to try to diurese him further. Would not replace the pleural catheter at this point. 09/25/2016 patient needs to be more active. Creatinine is come down to 1.9. Plans are for a CT angiogram of the chest tomorrow. Will need to watch renal function closely after that. Since the CT is planned I will not order chest x- ray 09/26/2016 CT angiogram was canceled because creatinine was up to 2.1. Defer to nephrology, cardiovascular surgery, and radiology on plans there. His chest x- ray shows recurrence of right pleural effusion. Not as much as before but still there. We are trying to diurese him as much as his kidneys will allow. He still has peripheral edema. 09/27/[address] angiogram today. Dr. Mehta to review to decide about surgery. Creatinine was 1.9 this morning. Patient had episode of increased dyspnea last night. Did get better with 1 mg of morphine. If he is to have surgery in the next couple of days, then the right pleural fluid could be drained at that time. If surgery is delayed for several days to follow renal function, then he should have the right pleural catheter replaced. 09/28/2016 patient feels better today. Sleeping better. Less dyspneic. Chest CT angiogram done yesterday and creatinine remains 1.9. Dr. Mehta to review the CT and make plans as far as surgery is concerned. Patient is anxious to go ahead with the surgery. 09/29/2016 patient sleeping in recliner. Dyspnea is improved. Renal function has improved with creatinine 1.7. Plans are for surgery Sunday with coronary bypass surgery of one vessel and aortic valve replacement. Pleural drainage will take care of the right effusion at that time. Stable from pulmonary standpoint. Please call pulmonary business objects consultant this weekend if needed. 10/02/16 Pt seen in CVR, on vent. C.O. 3.6 L. PCW 25. ABG's ok. Wean per protocol. CXR OK. 10/03/2016 patient awake and responsive squeezes fingers on command. ABGs improved. Earlier attempt at CPAP this morning reveal that he had apneic episodes so it was terminated. Hopefully will be able to do CPAP get extubated this morning. His chest x-ray looks okay. Urine output has been marginal. His weight is up 6 kg from pre surgery. Agree with Lasix infusion. Need to decrease IV fluids. 10/04/2016 patient alert oriented. No air leak from right chest tube. Decreased fluid output from mediastinal tube. Oxygen saturation looks good. Patient taking oral feedings. Discussed case with Dr. Mehta. Plans are for patient to go to the floor hopefully later today. Exam (Progress Note) - Constitutional Vitals: Period Temp Pulse Resp BP Sys/Hurtado Pulse Ox Last 24 Hr 97.8 F-98.3 F 87-109 10-32 110-148/40-54 95-100 Exam: Patient's responsive, comfortable flat in bed. Squeezes fingers on command. Doing well off the ventilator. O2 sat 97% on 2 L. Pupils react to light. Neck supple no bruits. Chest shows a few basilar crackles at the right base. Dullness at right base to percussion. Heart normal rate rhythm grade 1/6 systolic murmur at right base. Abdomen soft nontender no masses. Bowel sounds present. Extremities no clubbing or cyanosis. 1+ edema. Calves nontender. Results - Labs CBC & BMP: 10/04/16 02:55 10/04/16 02:55 Lab Results: I have reviewed the past 24 hour labs - Diagnostic Findings Procedure: Chest x-ray: pending Assessment and Plan (1) Syncope Status: Acute Assessment and plan: Syncope likely due to cardiac causes related to his aortic stenosis. 09/15/16 likely due to his aortic stenosis. 09/18/2016 again the syncope is likely due to his aortic stenosis. 09/20/2016 no symptoms of postural syncope at this time 10/03/2016 syncope was what led to his admission with the finding of severe aortic stenosis Current Visit: Yes (2) Chronic kidney disease Status: Chronic Assessment and plan: Creatinine is 2.1. He has had some renal insufficiency for quite some time related to vascular disease and diabetes. At present I think he is ahead on fluid. I will bump him with Lasix. 09/15/16 creatinine up to 2.3 after a dose of Lasix. Afraid to diurese any more vigorously at present. Asking interventional radiology to drain the loculated right effusion. This should help getting prepped for aortic valve replacement. 09/18/2016 creatinine up to 2.8. Difficulty mobilizing right pleural effusion fluid 09/19/2016 renal function is a little better today. Creatinine down to 2.4. May have had a bump in creatinine related to his contrast last week. 09/20/2016 creatinine up to 2.8. 09/21/2016 creatinine down to 2.5. Improving. Hopefully getting further out from contrast 09/22/2016 chemistries pending today. Hopefully can get creatinine back down to around 2. 09/23/2016 creatinine down to 2.3. This despite giving diuretics. 09/24/2016 creatinine down to 2.1. 09/25/2016 creatinine down to 1.9. This is about baseline for him. 09/26/2016 creatinine 2.1 today. Nephrology following. 09/27/2016 renal function about baseline for him at 1.9 creatinine. Likely will see a rise over the next couple of days due to the contrast today. 09/28/2016 creatinine 1.9 and appear stable despite getting repeat contrast yesterday 09/29/2016 creatinine down to 1.7 despite contrast and diuretics. 10/02/16 Renal function intact now. Cr 1.5 this AM. 10/03/2016 creatinine 1.9. Urine output down to about 20-25 cc an hour. Weight up 6 kg. Agree with Lasix infusion. 10/04/2016 creatinine 2.1 and urine output pretty good on Lasix infusion. Agree with change to intermittent Lasix. Current Visit: Yes Qualifiers: Chronic kidney disease stage: stage 3 (moderate) Qualified Code(s): N18.3 - Chronic kidney disease, stage 3 (moderate) (3) Coronary artery disease Status: Chronic Assessment and plan: Previous coronary bypass surgery with additional findings at catheterization this admission. 09/25/2016 patient not having any active angina. 09/28/2016 previous coronary bypass surgery. 09/29/1969 will have 1 of coronary bypass is redone. 10/02/16 Had patch bovine graft of one of previous CABG vein grafts. 10/03/2016 status post redo coronary bypass with patch graft. Current Visit: Yes Qualifiers: Coronary Disease-Associated Artery/Lesion type: three affiliated artery [place] vs. transplanted heart: three affiliated heart Associated angina: without angina Qualified Code(s): I25.10 - Atherosclerotic heart disease of three affiliated coronary artery without angina pectoris (4) Pulmonary hypertension Status: Chronic Assessment and plan: This was not quantified on the echo but is likely to be secondary to his left heart disease with aortic stenosis. 09/15/16 this should be due to his aortic stenosis and congestive heart failure. 09/18/2016 secondary to his left heart disease. 09/20/2016 this is due to his left heart disease. 09/21/2016 due to left heart disease. 09/22/2016 this is secondary to his left heart disease, primarily aortic stenosis 09/23/2016 this is secondary to his aortic stenosis. 09/24/2016 secondary to left heart disease. 09/27/2016 again this is felt to be secondary to his left heart disease primarily aortic stenosis 09/28/2016 apparently due to left heart disease/aortic stenosis 09/29/2016 again this is due to left heart disease. 10/02/16 PA pressures lower since AVR. 10/03/2016 systolic PA pressure in the mid 30s. Continues to improve. 10/04/2016 [employer] catheter to be removed today. PA diastolic around 20. Current Visit: Yes (5) Severe aortic stenosis Status: Chronic Assessment and plan: Has severe aortic stenosis by echo and catheterization. Likely the possible cause of his congestive heart failure and pulmonary hypertension. 09/15/16 hopefully can have surgery when we get him tuned up. 09/18/2016 will need surgery if he can tolerate it. 09/19/2016 hopefully we can get him tuned up where he can tolerate AVR. 09/20/2016 aortic valve surgery is indicated when we can get him tuned up for it. 09/21/2016 need surgery. Trying to get him tuned up for that. If renal function is stable and right pleural effusion totally evacuated, then hopefully could plan sign. 09/22/2016 x-ray is better. Less dyspnea. If renal function is stable, I would be in favor of proceeding with surgery next week. 09/23/16 ideally should be repaired surgically or replaced. He has some chronic bronchitis but does not have severe COPD. 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 09/24/2016 again trying to tune him up so he can have his aortic valve replaced or repaired. 09/25/2016 trying to get him to the point where he can have his aortic valve replaced or repaired. Needs more physical activity. 09/26/2016 continuing to try to get him where he can tolerate aortic valve surgery. 09/27/[address] done this morning for Dr. Mehta to review. 09/28/2016 Dr. Mehta to review CT and decide whether to proceed with aortic valve replacement or repair 09/29/2016 this has become severe and is causing congestive heart failure. Has well-maintained LV ejection fraction. Set up for surgery Sunday to replace the valve 10/02/16 Post AVR. Weaning from vent will take overnight probably. 10/03/2016 status post aortic valve replacement. Cardiac output is better. Pulmonary capillary wedge pressure still in the low 20s. Diuresing 10/04/2016 status post aVR. Current Visit: Yes (6) Diabetes mellitus Status: Chronic Assessment and plan: Has some hyperglycemia. Adding sliding scale. 09/15/16 glucoses in the 140-200 range. 09/18/2016 glucoses look okay. 09/19/2016 glucoses are fairly well controlled. 09/20/2016 glucoses look better. 09/21/2016 still mildly elevated glucoses. 09/22/2016 glucoses fairly well controlled. 09/23/2016 blood sugars are okay. 09/24/2016 glucoses are a little high. Adjust insulin, increase Lantus to 15 units. 09/25/2016 glucoses a little better. 09/26/2016 blood sugars are acceptable. 09/27/2016 blood sugars running in the 85-90 range. 09/28/2016 glucoses well controlled. 09/29/2016 blood sugars fairly well controlled. 10/02/16 Glucoses stable on SS insulin. 10/03/2016 glucoses very well controlled 10/04/2016 glucoses well controlled Current Visit: Yes Qualifiers: Diabetes mellitus type: type 2 Chronic kidney disease stage: stage 3 ( moderate) (7) Acute bronchitis Status: Resolved Assessment and plan: Based on the change in sputum color and elevated white count 16,000 think is reasonable to cover him with antibiotics for this. Will use Atrovent for bronchodilators. 09/15/16 empirically on antibiotics and Atrovent. I think his main problem respiratory escobar is congestive heart failure related to his aortic stenosis. Would not delay surgery for bronchitis in this situation 09/18/2016 on empiric antibiotics. 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 It is sensitive to Cipro. I will change him to oral Cipro. 09/20/2016 I do not hear any rhonchi. He is on oral Cipro. 09/21/2016 bronchitis is improved. Probably needs a couple more days of Cipro. 09/22/2016 he has had a week's worth of antibiotics. Bronchitis is quiet now. We will stop Cipro. 09/23/2016 he has completed antibiotics. 09/25/2016 he is not coughing at present. Current Visit: Yes Specialty Discharge - Follow Up or Referrals
--- NOTE | 2016-10-04 07:11 | XRay Report ---
History: Postop thoracotomy. Status post chest tube removal. Evaluate for pneumothorax Date: 10/04/2016 Study: Chest x-ray AP portable Comparison exam: 10/03/2016 The endotracheal and nasogastric tubes have been removed since the previous day. There is stable cardiomegaly. The mediastinal contour is unchanged in this patient status post prior median sternotomy. The pulmonary vasculature is upper normal. There is a suspected persistent small right basilar pneumothorax which is the same or slightly increased in size compared to the previous study. There is some persistent mild bibasilar edema and/or atelectasis. There is persistent mild pleural disease bilaterally. There is no new or worsening infiltrate. Osseous structures are similar. Impression: Persistent small right basilar pneumothorax, the same or minimally increased in size. Interval extubation and nasogastric tube removal. Otherwise unchanged PROCEDURE INTERPRETED AT [facility] DEPARTMENT OF RADIOLOGY Final Report Signed by: Dr. Nadja Muse
[2016-10-04] MEDS: IPRATROPIUM 500 MCG/2.5 ML NEB RESP TX SCH ×3 (07:16→19:46)
[2016-10-04] MEDS: METOPROLOL TARTRATE 25 MG TABLET PO SCH ×2 (09:37→21:49)
[2016-10-04] MEDS: FUROSEMIDE 40 MG/4 ML VIAL IV SCH ×2 (09:37→16:00)
[2016-10-04] MEDS: CHLORHEXIDINE 0.12% ORAL RINSE 60 ML BOTTLE SWISH/SPIT SCH ×2 (09:44→21:51)
--- NOTE | 2016-10-04 10:09 | Cardiology Progress Note ---
<Rosie Hsu - Last Filed: 10/04/16 09:47> Assessment and Plan - Time spent with patient Time spent with patient: Less than 30 minutes (1) Acute on chronic renal failure Status: Acute Current Visit: Yes (2) Severe aortic stenosis Status: Chronic Assessment and plan: Postop day 1 from aortic valve replacement. Hemodynamically stable and doing well at this time. Current Visit: Yes (3) Coronary artery disease Status: Chronic Assessment and plan: Postop 1. Adequately revascularized except for the ostial vein graft to the first obtuse marginal which now has a nice vein graft pericardial patch. Current Visit: Yes Qualifiers: Coronary Disease-Associated Artery/Lesion type: [place] artery [place] vs. transplanted heart: [place] heart Associated angina: without angina Qualified Code(s): I25.10 - Atherosclerotic heart disease of [place] coronary artery without angina pectoris (4) Atrial flutter by electrocardiogram Status: Acute Current Visit: Yes (5) Hypertension Status: Chronic Assessment and plan: Currently well controlled. He was hypotensive following surgery but is now no longer requiring the use of vasopressors. 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 Frazier is a 86 year old male with a history of coronary artery disease, hypertension, hyperlipidemia, type 2 diabetes mellitus, chronic kidney disease. He is status post coronary artery bypass grafting August 06 2001 with SINGH to the LAD and vein graft to the circumflex marginal and right coronary arteries. He is status post right carotid endarterectomy July 03, 2002. He was admitted to the hospital after an episode of syncope and prolonged weakness. Echocardiogram showed severe aortic stenosis and cardiac catheterization root revealed patency of an internal mammary graft and circumflex graft although the circumflex graft has an ostial stenosis. The right coronary graft is occluded but the [place] right coronary does not have significant obstructive lesions. He underwent chest CTA on 09/27/2016 further evaluation of the position of his SINGH bypass graft and was planned for surgery on 10/02/2016. Throughout hospitalization he has had trouble with recurrent right pleural effusion and acute on chronic renal failure. His postop day #2 from aortic valve replacement as well as a pericardial patch graft of saphenous vein graft to the left circumflex distribution. He has been extubated and is now on O2 via nasal biprong. Labs are stable. I believe there are plans to remove his mediastinal chest tubes today leave his right pleural tube in place for another couple of days. He continues to do well he may possibly be transferred up to the floor today. Postoperatively he has remained in normal sinus rhythm. His rates have been stable in the 90s & he has been hemodynamically stable. He reports he feels much better than he did prior to surgery. He is alert and neurologically intact. Exam (Progress Note) - Constitutional Vitals: Period Temp Pulse Resp BP Sys/Hurtado Pulse Ox Last 24 Hr 97.8 F-98.3 F 87-105 10-32 110-142/40-54 95-100 Exam: General: Present: Appears Well, No Apparent Distress. Pleasant and cooperative. Appears comfortable. HEENT: Present: PERRL, Normocephaly, atraumatic. Mucus Membranes Moist. No jaundice noted. Conjunctiva moist and clear, sclerae anicteric Neck: Present: Supple Neck, Midline Trachea, No Masses, No tenderness Cardiac: Present: Regular Rate and Rhythm with prominent S4, midline sternal dressing dry and intact. Mediastinal chest tubes in place and clamped. No rubs Lungs: Present: Clear to auscultation bilaterally, right pleural chest tube in place. Neuro: Present: Awake, alert, and oriented x3. Moves all extremities well without hemiparesis or paralysis. Grossly Intact. Absent: Resting Tremor, Essential Tremor Abdomen: Present: Soft, Active Bowel Sounds, No Masses, Non-Tender, nondistended. No abdominal bruit or thrill noted. Skin: Present: Clear. Absent: Rash, No skin breakdown. Musculoskeletal: Present: No Fluid Collection, No Pain, Normal Range of Motion Extremities: Present: Normal Gait, No Clubbing, No Cyanosis, Upper Extr. Pulses 2+, Lower Extr. Pulses 2+, 1-2+ edema to bilateral lower extremities. Capillary refill less than 3 seconds. Result/EKG - Labs CBC & BMP: 10/04/16 02:55 10/04/16 02:55 Lab Results: I have reviewed the past 24 hour labs Labs: Laboratory Results - last 24 hr 10/01/16 10/03/16 10/03/16 03:42 06:09 10:32 WBC RBC Hgb Hct MCV MCH MCHC RDW Plt Count MPV Neut % (Auto) Lymph % (Auto) Upton % (Auto) Eos % (Auto) Baso % (Auto) Neut # (Auto) Lymph # (Auto) [place] # (Auto) Eos # (Auto) Baso # (Auto) Immature Gran % Nucleated RBC % Immature Gran # Nucleated RBCs # Platelet Estimate Anisocytosis Ovalocytes Katheryn Cells ABG pH 7.402 ABG pCO2 42.4 ABG pO2 135.0 H ABG HCO3 25.7 ABG Total CO2 23.5 ABG O2 Saturation 99.1 ABG Base Excess 1.4 VBG pH VBG pCO2 VBG pO2 VBG HCO3 VBG Total CO2 VBG O2 Saturation VBG Base Excess Hemoglobin 11.8 L Hematocrit 36.3 L Potassium 4.4 Glucose 125 H FiO2 Sodium Chloride Carbon Dioxide Anion Gap BUN Creatinine GFR Calculation BUN/Creatinine Ratio POC Glucose 118 H Calculated Osmolality Calcium Magnesium Total Bilirubin Direct Bilirubin AST ALT Alkaline Phosphatase Total Creatine Kinase CK-MB (CK-2) CK and CKMB Interp Troponin I Total Protein Albumin Globulin Albumin/Globulin Ratio Crossmatch See Detail 10/03/16 10/03/16 10/03/16 11:33 14:15 16:03 WBC RBC Hgb Hct MCV MCH MCHC RDW Plt Count MPV Neut % (Auto) Lymph % (Auto) Upton % (Auto) Eos % (Auto) Baso % (Auto) Neut # (Auto) Lymph # (Auto) [place] # (Auto) Eos # (Auto) Baso # (Auto) Immature Gran % Nucleated RBC % Immature Gran # Nucleated RBCs # Platelet Estimate Anisocytosis Ovalocytes Taft Cells ABG pH 7.393 ABG pCO2 45.9 ABG pO2 145.2 H ABG HCO3 27.3 H ABG Total CO2 28.8 H ABG O2 Saturation 98.5 ABG Base Excess 2.0 VBG pH VBG pCO2 VBG pO2 VBG HCO3 VBG Total CO2 VBG O2 Saturation VBG Base Excess Hemoglobin 12.3 L Hematocrit 36.0 L Potassium 4.4 Glucose 116 H FiO2 Sodium Chloride Carbon Dioxide Anion Gap BUN Creatinine GFR Calculation BUN/Creatinine Ratio POC Glucose 213 H Calculated Osmolality Calcium Magnesium Total Bilirubin Direct Bilirubin AST ALT Alkaline Phosphatase Total Creatine Kinase 177 CK-MB (CK-2) 17.4 H CK and CKMB Interp 9.8 Troponin I 5.160 H D Total Protein Albumin Globulin Albumin/Globulin Ratio Crossmatch 10/03/16 10/03/16 10/03/16 18:29 18:38 20:05 WBC RBC Hgb Hct MCV MCH MCHC RDW Plt Count MPV Neut % (Auto) Lymph % (Auto) [place] % (Auto) Eos % (Auto) Baso % (Auto) Neut # (Auto) Lymph # (Auto) [place] # (Auto) Eos # (Auto) Baso # (Auto) Immature Gran % Nucleated RBC % Immature Gran # Nucleated RBCs # Platelet Estimate Anisocytosis Ovalocytes Katheryn Cells ABG pH ABG pCO2 ABG pO2 ABG HCO3 ABG Total CO2 ABG O2 Saturation ABG Base Excess VBG pH 7.394 7.394 VBG pCO2 44.8 VBG pO2 28.4 VBG HCO3 26.8 VBG Total CO2 28.1 VBG O2 Saturation 63.9 VBG Base Excess 1.5 Hemoglobin Hematocrit Potassium Glucose FiO2 0.00 Sodium Chloride Carbon Dioxide Anion Gap BUN Creatinine GFR Calculation BUN/Creatinine Ratio POC Glucose 288 H Calculated Osmolality Calcium Magnesium Total Bilirubin Direct Bilirubin AST ALT Alkaline Phosphatase Total Creatine Kinase CK-MB (CK-2) CK and CKMB Interp Troponin I Total Protein Albumin Globulin Albumin/Globulin Ratio Crossmatch 10/03/16 10/04/16 10/04/16 23:42 02:55 02:55 WBC 11.4 RBC 3.68 L Hgb 11.0 L Hct 32.7 L MCV 88.9 MCH 30 MCHC 33.6 RDW 15.4 Plt Count 42 L MPV 10.8 Neut % (Auto) 78.1 H Lymph % (Auto) 9.3 L Upton % (Auto) 11.8 Eos % (Auto) 0.3 Baso % (Auto) 0.1 Neut # (Auto) 8.9 H Lymph # (Auto) 1.1 L [place]pton # (Auto) 1.4 H Eos # (Auto) 0.0 Baso # (Auto) 0.0 Immature Gran % 0.4 Nucleated RBC % 0.0 Immature Gran # 0.05 Nucleated RBCs # 0.00 Platelet Estimate Decreased Anisocytosis Ovalocytes 1+ Katheryn Cells 1+ ABG pH ABG pCO2 ABG pO2 ABG HCO3 ABG Total CO2 ABG O2 Saturation ABG Base Excess VBG pH VBG pCO2 VBG pO2 VBG HCO3 VBG Total CO2 VBG O2 Saturation VBG Base Excess Hemoglobin Hematocrit Potassium 4.2 Glucose 160 H FiO2 Sodium 138 Chloride 101 Carbon Dioxide 30 Anion Gap 11.2 BUN 51 H D Creatinine 2.10 H GFR Calculation 32 BUN/Creatinine Ratio 24.00 H POC Glucose 266 H Calculated Osmolality 291.7 Calcium 8.1 L Magnesium 2.1 Total Bilirubin 0.90 Direct Bilirubin 0.40 H AST 44 H ALT 28 Alkaline Phosphatase 68 Total Creatine Kinase CK-MB (CK-2) CK and CKMB Interp Troponin I Total Protein 5.1 L Albumin 2.7 L Globulin 2.4 Albumin/Globulin Ratio 1.1 Crossmatch 10/04/16 10/04/16 03:59 07:15 WBC RBC Hgb Hct MCV MCH MCHC RDW Plt Count MPV Neut % (Auto) Lymph % (Auto) [place] % (Auto) Eos % (Auto) Baso % (Auto) Neut # (Auto) Lymph # (Auto) [place] # (Auto) Eos # (Auto) Baso # (Auto) Immature Gran % Nucleated RBC % Immature Gran # Nucleated RBCs # Platelet Estimate Anisocytosis Ovalocytes [place] Cells ABG pH ABG pCO2 ABG pO2 ABG HCO3 ABG Total CO2 ABG O2 Saturation ABG Base Excess VBG pH VBG pCO2 VBG pO2 VBG HCO3 VBG Total CO2 VBG O2 Saturation VBG Base Excess Hemoglobin Hematocrit Potassium Glucose FiO2 Sodium Chloride Carbon Dioxide Anion Gap BUN Creatinine GFR Calculation BUN/Creatinine Ratio POC Glucose 140 H 104 Calculated Osmolality Calcium Magnesium Total Bilirubin Direct Bilirubin AST ALT Alkaline Phosphatase Total Creatine Kinase CK-MB (CK-2) CK and CKMB Interp Troponin I Total Protein Albumin Globulin Albumin/Globulin Ratio Crossmatch - EKG EKG results: interpreted by me, sinus rhythm Quality Measures - VTE Contraindication to Pharmacological VTE Prophylaxis: High Risk of Bleeding - Stroke Onset of Symptoms Date: 09/05/16 Onset of Symptoms Time: 15:30 Symptom Onset Unknown: No Specialty Discharge - Follow Up or Referrals <Mariel Lloyd - Last Filed: 10/04/16 10:04> Assessment and Plan (1) Hypertension Status: Chronic Current Visit: Yes Qualifiers: Hypertension type: essential hypertension Qualified Code(s): I10 - Essential (primary) hypertension (2) Pulmonary hypertension Status: Chronic Current Visit: Yes (3) TIA (transient ischemic attack) Status: Acute Current Visit: Yes (4) Unsteady gait Status: Chronic Current Visit: Yes (5) Coronary artery disease Status: Chronic Current Visit: Yes Qualifiers: Coronary Disease-Associated Artery/Lesion type: [place] artery [place] vs. transplanted heart: [place] heart Associated angina: without angina Qualified Code(s): I25.10 - Atherosclerotic heart disease of [place] coronary artery without angina pectoris (6) Diabetes mellitus Status: Chronic Current Visit: Yes Qualifiers: Diabetes mellitus type: type 2 Chronic kidney disease stage: stage 3 ( moderate) (7) Tissue aortic valve replacement during current hospitalization Status: Acute Current Visit: Yes (8) Chronic kidney disease Status: Chronic Current Visit: Yes Qualifiers: Chronic kidney disease stage: stage 3 (moderate) Qualified Code(s): N18.3 - Chronic kidney disease, stage 3 (moderate) Cardiology - PN: Subj Interval history: I saw Mr. Frazier in the ICU with Ms. Hsu. He states he feels 100% better. He looks quite good PA catheter is out chest tubes remain he states he feels 100 % better. We talked about the importance of incentive spirometer. His urine output remains good although he has a slight amount of heme in his Ramos catheter. He has good urinary output his vital signs look good. He has some anasarca that will hopefully mobilize over the next 48 hours. He states that he feels 100% better. Exam (Progress Note) - Constitutional Vitals: Period Temp Pulse Resp BP Sys/Hurtado Pulse Ox Last 24 Hr 97.8 F-98.3 F 87-105 10-22 118-142/43-54 95-100 Exam: Grew the exam as above. - Cardiovascular Cardiovascular exam: Present: regular rate and rhythm (S4 no rub) - Psychiatric Psychiatric exam: Present: normal affect, normal mood - Skin Skin exam: Present: normal color, warm - Other Additional findings: Patient has diffuse edema or anasarca is worse in the right upper extremity. Result/EKG - Labs CBC & BMP: 10/04/16 02:55 10/04/16 02:55 Labs: Laboratory Results - last 24 hr 10/01/16 10/03/16 10/03/16 03:42 06:09 10:32 WBC RBC Hgb Hct MCV MCH MCHC RDW Plt Count MPV Neut % (Auto) Lymph % (Auto) [place] % (Auto) Eos % (Auto) Baso % (Auto) Neut # (Auto) Lymph # (Auto) [place] # (Auto) Eos # (Auto) Baso # (Auto) Immature Gran % Nucleated RBC % Immature Gran # Nucleated RBCs # Platelet Estimate Anisocytosis Ovalocytes Katheryn Cells ABG pH 7.402 ABG pCO2 42.4 ABG pO2 135.0 H ABG HCO3 25.7 ABG Total CO2 23.5 ABG O2 Saturation 99.1 ABG Base Excess 1.4 VBG pH VBG pCO2 VBG pO2 VBG HCO3 VBG Total CO2 VBG O2 Saturation VBG Base Excess Hemoglobin 11.8 L Hematocrit 36.3 L Potassium 4.4 Glucose 125 H FiO2 Sodium Chloride Carbon Dioxide Anion Gap BUN Creatinine GFR Calculation BUN/Creatinine Ratio POC Glucose 118 H Calculated Osmolality Calcium Magnesium Total Bilirubin Direct Bilirubin AST ALT Alkaline Phosphatase Total Creatine Kinase CK-MB (CK-2) CK and CKMB Interp Troponin I Total Protein Albumin Globulin Albumin/Globulin Ratio Crossmatch See Detail 10/03/16 10/03/16 10/03/16 11:33 14:15 16:03 WBC RBC Hgb Hct MCV MCH MCHC RDW Plt Count MPV Neut % (Auto) Lymph % (Auto) [place] % (Auto) Eos % (Auto) Baso % (Auto) Neut # (Auto) Lymph # (Auto) [place] # (Auto) Eos # (Auto) Baso # (Auto) Immature Gran % Nucleated RBC % Immature Gran # Nucleated RBCs # Platelet Estimate Anisocytosis Ovalocytes Katheryn Cells ABG pH 7.393 ABG pCO2 45.9 ABG pO2 145.2 H ABG HCO3 27.3 H ABG Total CO2 28.8 H ABG O2 Saturation 98.5 ABG Base Excess 2.0 VBG pH VBG pCO2 VBG pO2 VBG HCO3 VBG Total CO2 VBG O2 Saturation VBG Base Excess Hemoglobin 12.3 L Hematocrit 36.0 L Potassium 4.4 Glucose 116 H FiO2 Sodium Chloride Carbon Dioxide Anion Gap BUN Creatinine GFR Calculation BUN/Creatinine Ratio POC Glucose 213 H Calculated Osmolality Calcium Magnesium Total Bilirubin Direct Bilirubin AST ALT Alkaline Phosphatase Total Creatine Kinase 177 CK-MB (CK-2) 17.4 H CK and CKMB Interp 9.8 Troponin I 5.160 H D Total Protein Albumin Globulin Albumin/Globulin Ratio Crossmatch 10/03/16 10/03/16 10/03/16 18:29 18:38 20:05 WBC RBC Hgb Hct MCV MCH MCHC RDW Plt Count MPV Neut % (Auto) Lymph % (Auto) [place] % (Auto) Eos % (Auto) Baso % (Auto) Neut # (Auto) Lymph # (Auto) [place] # (Auto) Eos # (Auto) Baso # (Auto) Immature Gran % Nucleated RBC % Immature Gran # Nucleated RBCs # Platelet Estimate Anisocytosis Ovalocytes [place] Cells ABG pH ABG pCO2 ABG pO2 ABG HCO3 ABG Total CO2 ABG O2 Saturation ABG Base Excess VBG pH 7.394 7.394 VBG pCO2 44.8 VBG pO2 28.4 VBG HCO3 26.8 VBG Total CO2 28.1 VBG O2 Saturation 63.9 VBG Base Excess 1.5 Hemoglobin Hematocrit Potassium Glucose FiO2 0.00 Sodium Chloride Carbon Dioxide Anion Gap BUN Creatinine GFR Calculation BUN/Creatinine Ratio POC Glucose 288 H Calculated Osmolality Calcium Magnesium Total Bilirubin Direct Bilirubin AST ALT Alkaline Phosphatase Total Creatine Kinase CK-MB (CK-2) CK and CKMB Interp Troponin I Total Protein Albumin Globulin Albumin/Globulin Ratio Crossmatch 10/03/16 10/04/16 10/04/16 23:42 02:55 02:55 WBC 11.4 RBC 3.68 L Hgb 11.0 L Hct 32.7 L MCV 88.9 MCH 30 MCHC 33.6 RDW 15.4 Plt Count 42 L MPV 10.8 Neut % (Auto) 78.1 H Lymph % (Auto) 9.3 L [place] % (Auto) 11.8 Eos % (Auto) 0.3 Baso % (Auto) 0.1 Neut # (Auto) 8.9 H Lymph # (Auto) 1.1 L [place] # (Auto) 1.4 H Eos # (Auto) 0.0 Baso # (Auto) 0.0 Immature Gran % 0.4 Nucleated RBC % 0.0 Immature Gran # 0.05 Nucleated RBCs # 0.00 Platelet Estimate Decreased Anisocytosis Ovalocytes 1+ Katheryn Cells 1+ ABG pH ABG pCO2 ABG pO2 ABG HCO3 ABG Total CO2 ABG O2 Saturation ABG Base Excess VBG pH VBG pCO2 VBG pO2 VBG HCO3 VBG Total CO2 VBG O2 Saturation VBG Base Excess Hemoglobin Hematocrit Potassium 4.2 Glucose 160 H FiO2 Sodium 138 Chloride 101 Carbon Dioxide 30 Anion Gap 11.2 BUN 51 H D Creatinine 2.10 H GFR Calculation 32 BUN/Creatinine Ratio 24.00 H POC Glucose 266 H Calculated Osmolality 291.7 Calcium 8.1 L Magnesium 2.1 Total Bilirubin 0.90 Direct Bilirubin 0.40 H AST 44 H ALT 28 Alkaline Phosphatase 68 Total Creatine Kinase CK-MB (CK-2) CK and CKMB Interp Troponin I Total Protein 5.1 L Albumin 2.7 L Globulin 2.4 Albumin/Globulin Ratio 1.1 Crossmatch 10/04/16 10/04/16 03:59 07:15 WBC RBC Hgb Hct MCV MCH MCHC RDW Plt Count MPV Neut % (Auto) Lymph % (Auto) [place] % (Auto) Eos % (Auto) Baso % (Auto) Neut # (Auto) Lymph # (Auto) [place] # (Auto) Eos # (Auto) Baso # (Auto) Immature Gran % Nucleated RBC % Immature Gran # Nucleated RBCs # Platelet Estimate Anisocytosis Ovalocytes Katheryn Cells ABG pH ABG pCO2 ABG pO2 ABG HCO3 ABG Total CO2 ABG O2 Saturation ABG Base Excess VBG pH VBG pCO2 VBG pO2 VBG HCO3 VBG Total CO2 VBG O2 Saturation VBG Base Excess Hemoglobin Hematocrit Potassium Glucose FiO2 Sodium Chloride Carbon Dioxide Anion Gap BUN Creatinine GFR Calculation BUN/Creatinine Ratio POC Glucose 140 H 104 Calculated Osmolality Calcium Magnesium Total Bilirubin Direct Bilirubin AST ALT Alkaline Phosphatase Total Creatine Kinase CK-MB (CK-2) CK and CKMB Interp Troponin I Total Protein Albumin Globulin Albumin/Globulin Ratio Crossmatch
--- NOTE | 2016-10-04 11:03 | XRay Report ---
History: Chest tube clamped. Postop thoracotomy Date: 10/04/2016 at 9:49 AM Study: Chest x-ray AP portable Comparison exam: Chest x-ray AP portable at 3:00 AM The right subclavian [place] catheter has been removed since the earlier study. The right IJ central line remains in satisfactory position. The chest tubes are unchanged in position. There is a persistent small anterior right basilar pneumothorax on the right, though this is the same size or improved compared to the earlier study. The chest is otherwise unchanged. Impression: Stable or improved tiny anterior right basilar pneumothorax. No interval worsening. Interval [place] catheter removal PROCEDURE INTERPRETED AT [facility] DEPARTMENT OF RADIOLOGY Final Report Signed by: Dr. Nadja Muse
[2016-10-04] MEDS: AMIODARONE 200 MG TABLET PO SCH ×2 (12:07→21:48)
--- NOTE | 2016-10-04 12:11 | Nephrology Progress Note ---
Nephrology - PN: Subj Interval history: He is awake and alert. He is sore from surgery but denies chest pain or shortness of breath. Exam (PN)-Nephrology - Vital Signs Vital signs: Period Temp Pulse Resp BP Sys/Hurtado Pulse Ox Last 24 Hr 97.8 F-98.4 F 87-105 10-22 118-142/43-54 95-100 Exam: Gen.: Alert and oriented x3. ENT: Pupils equal round reactive to light. EOMs intact. Mucous membranes moist. Neck: Supple. No JVD or bruit. Cardiovascular: Regular rate and rhythm. Surgical incision shows no sign of infection Lungs: Clear Abdomen: Soft. Nontender. Positive bowel sounds. No organomegaly Extremities: 1+ edema - Lab 10/04/16 02:55 10/04/16 02:55 Most recent lab results ABG pH 7.393 (7.35-7.45) 10/03/16 11:33 ABG pCO2 45.9 MM HG (35-48) 10/03/16 11:33 ABG pO2 145.2 MM HG (80-95) H 10/03/16 11:33 ABG HCO3 27.3 MMOL/L (20-26) H 10/03/16 11:33 ABG O2 Saturation 98.5 % (95-100) 10/03/16 11:33 Calcium 8.1 MG/DL (8.5-10.1) L 10/04/16 02:55 Magnesium 2.1 MG/DL (1.8-2.4) 10/04/16 02:55 Assessment and Plan (1) Acute on chronic renal failure Status: Acute Assessment and plan: 86-year-old man with: * CRF stage III. Creatinine is risen slightly since yesterday. Urine output has improved and fluid balance is negative * Aortic stenosis. Status post valve replacement * CAD. * Diabetes mellitus * Hypertension Current Visit: Yes (2) Near syncope Status: Acute Current Visit: Yes (3) Pleural effusion Status: Acute Current Visit: Yes (4) Coronary artery disease Status: Chronic Current Visit: Yes Qualifiers: Coronary Disease-Associated Artery/Lesion type: [place] artery [place] vs. transplanted heart: [place] heart Associated angina: without angina Qualified Code(s): I25.10 - Atherosclerotic heart disease of [place] coronary artery without angina pectoris (5) Diabetes mellitus Status: Chronic Current Visit: Yes Qualifiers: Diabetes mellitus type: type 2 Chronic kidney disease stage: stage 3 ( moderate) (6) Hypertension Status: Chronic Current Visit: Yes Qualifiers: Hypertension type: essential hypertension Qualified Code(s): I10 - Essential (primary) hypertension (7) Severe aortic stenosis Status: Chronic Current Visit: Yes (8) Bradycardia Status: Resolved Current Visit: Yes Specialty Discharge - Follow Up or Referrals
--- NOTE | 2016-10-04 12:26 | Ultrasound Report ---
US venous doppler UE RT Indication: Unilateral edema. Comparison: None. Technique: Grayscale, spectral, and color Doppler interrogation of the right upper extremity veins was performed. Augmentation and compression was performed. Findings: Grayscale, color Doppler, and pulsed Doppler evaluation of the veins of the right upper extremity demonstrates thrombus within the distal cephalic vein. IMPRESSION: As above. Critical Results: Findings relayed to Binta [place] RN at end of exam. PROCEDURE INTERPRETED AT [facility] DEPARTMENT OF RADIOLOGY Final Report Signed by: Dr Petr Wei
[2016-10-04] MEDS ORDERED: ACETAMINOPHEN 325 MG TABLET PO PRN (13:31)
[2016-10-04] MEDS ORDERED: oxyCODONE/ACETAMINOPHEN 5-325 MG TABLET PO PRN (13:31)
[2016-10-04] MEDS ORDERED: ZALEPLON 5 MG CAPSULE PO PRN (13:31)
[2016-10-04] MEDS ORDERED: MAGNESIUM HYDROXIDE SUSP 30 ML UDCUP PO PRN (13:31)
[2016-10-04] MEDS ORDERED: GLUCAGON 1 MG VIAL IM PRN (13:31)
[2016-10-04] MEDS ORDERED: MAGNESIUM SULF RIDER 2 GM in PREMIX 1 EACH IV PRN (13:31)
[2016-10-04] MEDS ORDERED: MAGNESIUM SULF RIDER 4 GM in PREMIX 1 EACH IV PRN (13:31)
[2016-10-04] MEDS ORDERED: DEXTROSE 50% 25 GM/50 ML VIAL IV PRN (13:31)
[2016-10-04] MEDS ORDERED: MORPHINE 2 MG/1 ML SYRINGE IV PRN (13:31)
[2016-10-04] MEDS ORDERED: ALUMINUM/MAGNES/SIMETH MAX STR 30 ML UDCUP PO PRN (13:31)
[2016-10-04] MEDS ORDERED: SODIUM CHLOR 0.45% KCL 20 MEQ 20 MEQ/1,000 ML BAG IV SCH (14:00)
[2016-10-04] MEDS: DESITIN 4OZ/NYSTATIN 15 GRAM MIXTURE PASTE TOP SCH ×2 (18:37→21:52)
[2016-10-04] MEDS: APIXABAN 2.5 MG TABLET PO SCH (21:49)
[2016-10-04] MEDS: ATORVASTATIN 80 MG TABLET PO SCH (21:49)
[2016-10-05] MEDS: IPRATROPIUM 500 MCG/2.5 ML NEB RESP TX SCH ×4 (00:05→19:46)
[2016-10-05 05:29] LABS: Basophils % 0.1 % (0.0-0.8); Eosinophils # 0.1 10*3/uL (0.0-0.87); Eosinophils % 0.7 % (0.00-10.9); Hematocrit 30.5 VOL% (42.0-52.0); Hemoglobin 10.5 GM/DL (14.0-18.0); Immature Granulocytes % 0.5 %; Immature Granulocytes Absolute 0.04 #; Lymphocytes # 0.8 10*3/uL (1.4-4.0); Lymphocytes % 10.1 % (21.2-54.2); Mean Corpuscular HGB Conc 34.4 GM/DL (32-36); Mean Corpuscular Hemoglobin 30 PG (27-34); Mean Corpuscular Volume 87.6 FL (87-102); Mean Platelet Volume 10.8 FL (9.6-12.0); Monocytes % 12.5 % (1.7-12.7); Neutrophils # 6.3 10*3/uL (1.4-7.4); Neutrophils % 76.1 % (38.7-73.9); Red Blood Count 3.48 MC/CUMM (3.8-5.5); Red Cell Distribution Width 14.6 % (9.3-17.3); White Blood Count 8.3 T/CUMM (4-12)
[2016-10-05 05:31] LABS: Platelet Count 43 T/CUMM (130-400)
[2016-10-05 05:55] LABS: Hypochromasia 1+; Platelet Estimate Decreased
[2016-10-05] MEDS ORDERED: FUROSEMIDE 40 MG/4 ML VIAL IV ONE (06:00)
[2016-10-05 06:13] LABS: Alanine Aminotransferase 27 U/L (16-61); Albumin 2.5 G/DL (3.4-5.0); Alkaline Phosphatase 71 U/L (45-117); Aspartate Amino Transferase 34 U/L (0-37); Bilirubin,Indirect 1.3 MG/DL (0.0-1.0); Blood Urea Nitrogen 48 MG/DL (7-18); Calcium 8.3 MG/DL (8.5-10.1); Glucose 64 MG/DL (74-106); Magnesium 2.3 MG/DL (1.8-2.4); Osmolality,Calculated 289.4 MOS/KG (273-304); Potassium 3.3 MMOL/L (3.5-5.1); Sodium 140 MMOL/L (136-145); Total Protein 4.8 G/DL (6.4-8.3)
--- NOTE | 2016-10-05 08:34 | XRay Report ---
Portable chest Date: 10/05/2016 Clinical history: Shortness of breath Comparison: 10/04/2016 Technique: Portable AP sitting chest Findings: Stable cardiomegaly with prior median sternotomy. Fairly stable right pneumothorax laterally at the right lung base adjacent to the remaining right chest tube. Other chest tubes have been removed. Residual diffuse parenchymal findings in the lungs with small pleural effusions. Impression: Removal of two of the mediastinal chest tubes in patient with prior median sternotomy. Residual small right basilar pneumothorax adjacent to the remaining right chest tube. Fairly stable diffuse edema/atelectasis with small pleural effusions. PROCEDURE INTERPRETED AT [facility] DEPARTMENT OF RADIOLOGY Final Report Signed by: Dr. Sejal Robles
[2016-10-05] MEDS ORDERED: DEXTROSE 50% 25 GM/50 ML VIAL IV PRN (08:35)
[2016-10-05] MEDS ORDERED: GLUCAGON 1 MG VIAL IM PRN (08:35)
--- NOTE | 2016-10-05 08:39 | Pulmonology Progress Note ---
Pulmonary - PN: Subj Interval history: This 86-year-old white male has congestive heart failure due to aortic stenosis. Also has atherosclerotic heart disease with previous coronary bypass surgery. Needs to have his IV aortic valve replaced. He has a right pleural effusion. His chest x-ray looks a little bit better today as far as the pulmonary edema is concerned. However we gave him Lasix yesterday and his creatinine has risen a little more. I think we would do best to get the right pleural fluid drained in preparation for surgery. Will ask interventional radiology to do this since it appears to be loculated laterally and would be safely done with ultrasound guidance. Patient is not sleeping well. Should tolerate some Ativan at bedtime. Quite anxious. I should note that the reason he has pleural fluid on the right and not the left is that he has had a previous left decortication. 09/18/2016 we have tried to diurese him and it has not been very successful. His creatinine has risen. He had a right thoracentesis with removal of 800 mL of fluid but he had his CT scan yesterday still showed significant right effusion. The pleural fluid is a transudate. Certainly think this is due to congestive heart failure, due to his aortic stenosis. It will be very difficult to treat his heart failure without the valve being replaced. However he is at high risk for surgery given his fragile state and acute kidney injury with Lasix and low cardiac output. Will ask nephrology to see if they can help us with this. Patient at present is about the same as far as her shortness of breath. He is empirically on antibiotics. 09/19/2016 he continues to complain of dyspnea. Primarily says he has trouble breathing through his nose. He is on 2 different nose sprays in his nasal passages appear open on my exam. I think is primarily short of breath related to his congestive heart failure/aortic stenosis. Renal function is a little better. Perhaps getting further out from contrast studies is helping. We do need to try to diurese him further. Nephrology is following as well. 09/20/2016 patient feels a little better sitting up in the chair. However his chest x-ray shows that the right pleural effusion has increased in size. Having a difficult time diuresing him with his creatinine 2.8. Would recommend putting a pleural catheter in the right side to drain this. Hopefully this will help us prep him for possible aortic valve replacement. The pleural effusion is due to congestive heart failure, however they are having a difficult time diuresing him. 09/21/2016 breathing is better since getting the pleural catheter. Chest x-ray today pending. Renal function getting a little better. Hopefully can plan aortic valve surgery soon. 09/22/2016 patient feels a little better. Should be able to tolerate nasal biprong's now. Chest x-ray shows the right pleural effusion has been evacuated. Put out about 200 mL from chest tube since yesterday morning. Need to keep it in for now. Renal function reports are pending from this morning. He does appear to be holding his own layer. Still has some peripheral edema and we need to bump with Lasix again. In my opinion he will need to have aortic valve surgery in order to get back to any meaningful life at home. Otherwise he will be a bed to chair existence. Certainly some risk involved as far as postoperative renal function and/or respiratory failure, but I favor proceeding with surgery next week. 09/23/2016 put out another 400 mL from his chest tube yesterday. Still has peripheral edema. We need to diurese him further. Renal insufficiency makes it difficult. Dr. Mehta wants to do a CT angiogram to further evaluate his aortic arch. His creatinine is down to 2.3. I feel sure further contrast would bump his creatinine up above 3 again and perhaps worse. I do think he would be better off having surgery then not having surgery. I do not think he can go home and come back as he still has a pleural catheter in. We may consider doing a pleurodesis, which is unusual for a transudative type effusion , and only works about half the time in this situation. 09/24/2016 his right pleural catheter came out during the night. Chest x-ray this morning shows the right lung well expanded. He does have some interstitial edema and some interstitial scarring. Creatinine has come down further to 2.1. We need to try to diurese him further. Would not replace the pleural catheter at this point. 09/25/2016 patient needs to be more active. Creatinine is come down to 1.9. Plans are for a CT angiogram of the chest tomorrow. Will need to watch renal function closely after that. Since the CT is planned I will not order chest x- ray 09/26/2016 CT angiogram was canceled because creatinine was up to 2.1. Defer to nephrology, cardiovascular surgery, and radiology on plans there. His chest x- ray shows recurrence of right pleural effusion. Not as much as before but still there. We are trying to diurese him as much as his kidneys will allow. He still has peripheral edema. 09/27/[address] angiogram today. Dr. Mehta to review to decide about surgery. Creatinine was 1.9 this morning. Patient had episode of increased dyspnea last night. Did get better with 1 mg of morphine. If he is to have surgery in the next couple of days, then the right pleural fluid could be drained at that time. If surgery is delayed for several days to follow renal function, then he should have the right pleural catheter replaced. 09/28/2016 patient feels better today. Sleeping better. Less dyspneic. Chest CT angiogram done yesterday and creatinine remains 1.9. Dr. Mehta to review the CT and make plans as far as surgery is concerned. Patient is anxious to go ahead with the surgery. 09/29/2016 patient sleeping in recliner. Dyspnea is improved. Renal function has improved with creatinine 1.7. Plans are for surgery Sunday with coronary bypass surgery of one vessel and aortic valve replacement. Pleural drainage will take care of the right effusion at that time. Stable from pulmonary standpoint. Please call pulmonary medication technician this weekend if needed. 10/02/16 Pt seen in CVR, on vent. C.O. 3.6 L. PCW 25. ABG's ok. Wean per protocol. CXR OK. 10/03/2016 patient awake and responsive squeezes fingers on command. ABGs improved. Earlier attempt at CPAP this morning reveal that he had apneic episodes so it was terminated. Hopefully will be able to do CPAP get extubated this morning. His chest x-ray looks okay. Urine output has been marginal. His weight is up 6 kg from pre surgery. Agree with Lasix infusion. Need to decrease IV fluids. 10/04/2016 patient alert oriented. No air leak from right chest tube. Decreased fluid output from mediastinal tube. Oxygen saturation looks good. Patient taking oral feedings. Discussed case with Dr. Mehta. Plans are for patient to go to the floor hopefully later today. 10/05/2016 patient now on telemetry. Right chest tube is been removed. His x- ray show some slightly increased interstitial edema. Creatinine is 2.1. Probably needs to be on a daily dose of Lasix. Oxygen saturation acceptable on low flow oxygen. Will need a good bit of physical therapy. Agree with plans for cardiac rehab. Exam (Progress Note) - Constitutional Vitals: Period Temp Pulse Resp BP Sys/[place] Pulse Ox Last 24 Hr 97.6 F-99.6 F 87-102 15-27 118-135/42-65 91-99 Exam: Patient's responsive, comfortable flat in bed. Squeezes fingers on command. Doing well off the ventilator. O2 sat 97% on 2 L. Pupils react to light. Neck supple no bruits. Chest shows a few basilar crackles at the right base. Dullness at right base to percussion. Heart normal rate rhythm grade 1/6 systolic murmur at right base. Abdomen soft nontender no masses. Bowel sounds present. Extremities no clubbing or cyanosis. 1+ edema. Calves nontender. Results - Labs CBC & BMP: 10/05/16 Unknown 10/05/16 Unknown Lab Results: I have reviewed the past 24 hour labs - Diagnostic Findings Procedure: Chest x-ray: image reviewed by me (X-ray was made before chest tube removed. Right chest tube in place. Minimal pleural thickening on both sides. Slightly increased interstitial edema.) Assessment and Plan (1) Syncope Status: Acute Assessment and plan: Syncope likely due to cardiac causes related to his aortic stenosis. 09/15/16 likely due to his aortic stenosis. 09/18/2016 again the syncope is likely due to his aortic stenosis. 09/20/2016 no symptoms of postural syncope at this time 10/03/2016 syncope was what led to his admission with the finding of severe aortic stenosis Current Visit: Yes (2) Chronic kidney disease Status: Chronic Assessment and plan: Creatinine is 2.1. He has had some renal insufficiency for quite some time related to vascular disease and diabetes. At present I think he is ahead on fluid. I will bump him with Lasix. 09/15/16 creatinine up to 2.3 after a dose of Lasix. Afraid to diurese any more vigorously at present. Asking interventional radiology to drain the loculated right effusion. This should help getting prepped for aortic valve replacement. 09/18/2016 creatinine up to 2.8. Difficulty mobilizing right pleural effusion fluid 09/19/2016 renal function is a little better today. Creatinine down to 2.4. May have had a bump in creatinine related to his contrast last week. 09/20/2016 creatinine up to 2.8. 09/21/2016 creatinine down to 2.5. Improving. Hopefully getting further out from contrast 09/22/2016 chemistries pending today. Hopefully can get creatinine back down to around 2. 09/23/2016 creatinine down to 2.3. This despite giving diuretics. 09/24/2016 creatinine down to 2.1. 09/25/2016 creatinine down to 1.9. This is about baseline for him. 09/26/2016 creatinine 2.1 today. Nephrology following. 09/27/2016 renal function about baseline for him at 1.9 creatinine. Likely will see a rise over the next couple of days due to the contrast today. 09/28/2016 creatinine 1.9 and appear stable despite getting repeat contrast yesterday 09/29/2016 creatinine down to 1.7 despite contrast and diuretics. 10/02/16 Renal function intact now. Cr 1.5 this AM. 10/03/2016 creatinine 1.9. Urine output down to about 20-25 cc an hour. Weight up 6 kg. Agree with Lasix infusion. 10/04/2016 creatinine 2.1 and urine output pretty good on Lasix infusion. Agree with change to intermittent Lasix. 10/05/2016 creatinine 2.1. Needs IV Lasix on a daily basis. Current Visit: Yes Qualifiers: Chronic kidney disease stage: stage 3 (moderate) Qualified Code(s): N18.3 - Chronic kidney disease, stage 3 (moderate) (3) Coronary artery disease Status: Chronic Assessment and plan: Previous coronary bypass surgery with additional findings at catheterization this admission. 09/25/2016 patient not having any active angina. 09/28/2016 previous coronary bypass surgery. 09/29/1969 will have 1 of coronary bypass is redone. 10/02/16 Had patch bovine graft of one of previous CABG vein grafts. 10/03/2016 status post redo coronary bypass with patch graft. 10/03/2016 status post repair with patch graft. Current Visit: Yes Qualifiers: Coronary Disease-Associated Artery/Lesion type: [place] artery [place] vs. transplanted heart: [place] heart Associated angina: without angina Qualified Code(s): I25.10 - Atherosclerotic heart disease of [place] coronary artery without angina pectoris (4) Pulmonary hypertension Status: Chronic Assessment and plan: This was not quantified on the echo but is likely to be secondary to his left heart disease with aortic stenosis. 09/15/16 this should be due to his aortic stenosis and congestive heart failure. 09/18/2016 secondary to his left heart disease. 09/20/2016 this is due to his left heart disease. 09/21/2016 due to left heart disease. 09/22/2016 this is secondary to his left heart disease, primarily aortic stenosis 09/23/2016 this is secondary to his aortic stenosis. 09/24/2016 secondary to left heart disease. 09/27/2016 again this is felt to be secondary to his left heart disease primarily aortic stenosis 09/28/2016 apparently due to left heart disease/aortic stenosis 09/29/2016 again this is due to left heart disease. 10/02/16 PA pressures lower since AVR. 10/03/2016 systolic PA pressure in the mid 30s. Continues to improve. 10/04/2016 [place] catheter to be removed today. PA diastolic around 20. 10/03/2016 when his PA line was in place it demonstrated that the peak pulmonary artery pressure had come down as a result of surgery. Current Visit: Yes (5) Severe aortic stenosis Status: Chronic Assessment and plan: Has severe aortic stenosis by echo and catheterization. Likely the possible cause of his congestive heart failure and pulmonary hypertension. 09/15/16 hopefully can have surgery when we get him tuned up. 09/18/2016 will need surgery if he can tolerate it. 09/19/2016 hopefully we can get him tuned up where he can tolerate AVR. 09/20/2016 aortic valve surgery is indicated when we can get him tuned up for it. 09/21/2016 need surgery. Trying to get him tuned up for that. If renal function is stable and right pleural effusion totally evacuated, then hopefully could plan sign. 09/22/2016 x-ray is better. Less dyspnea. If renal function is stable, I would be in favor of proceeding with surgery next week. 09/23/16 ideally should be repaired surgically or replaced. He has some chronic bronchitis but does not have severe COPD. 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 09/24/2016 again trying to tune him up so he can have his aortic valve replaced or repaired. 09/25/2016 trying to get him to the point where he can have his aortic valve replaced or repaired. Needs more physical activity. 09/26/2016 continuing to try to get him where he can tolerate aortic valve surgery. 09/27/[address] done this morning for Dr. Mehta to review. 09/28/2016 Dr. Mehta to review CT and decide whether to proceed with aortic valve replacement or repair 09/29/2016 this has become severe and is causing congestive heart failure. Has well-maintained LV ejection fraction. Set up for surgery Sunday to replace the valve 10/02/16 Post AVR. Weaning from vent will take overnight probably. 10/03/2016 status post aortic valve replacement. Cardiac output is better. Pulmonary capillary wedge pressure still in the low 20s. Diuresing 10/04/2016 status post aVR. 10/03/2016 status post AVR. Seems to be functioning well. Current Visit: Yes (6) Diabetes mellitus Status: Chronic Assessment and plan: Has some hyperglycemia. Adding sliding scale. 09/15/16 glucoses in the 140-200 range. 09/18/2016 glucoses look okay. 09/19/2016 glucoses are fairly well controlled. 09/20/2016 glucoses look better. 09/21/2016 still mildly elevated glucoses. 09/22/2016 glucoses fairly well controlled. 09/23/2016 blood sugars are okay. 09/24/2016 glucoses are a little high. Adjust insulin, increase Lantus to 15 units. 09/25/2016 glucoses a little better. 09/26/2016 blood sugars are acceptable. 09/27/2016 blood sugars running in the 85-90 range. 09/28/2016 glucoses well controlled. 09/29/2016 blood sugars fairly well controlled. 10/02/16 Glucoses stable on SS insulin. 10/03/2016 glucoses very well controlled 10/04/2016 glucoses well controlled 10/05/2016 glucoses elevated. He is off the infusion. I am resuming before meals and at bedtime sliding scale. Current Visit: Yes Qualifiers: Diabetes mellitus type: type 2 Chronic kidney disease stage: stage 3 ( moderate) (7) Acute bronchitis Status: Resolved Assessment and plan: Based on the change in sputum color and elevated white count 16,000 think is reasonable to cover him with antibiotics for this. Will use Atrovent for bronchodilators. 09/15/16 empirically on antibiotics and Atrovent. I think his main problem respiratory escobar is congestive heart failure related to his aortic stenosis. Would not delay surgery for bronchitis in this situation 09/18/2016 on empiric antibiotics. 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 It is sensitive to Cipro. I will change him to oral Cipro. 09/20/2016 I do not hear any rhonchi. He is on oral Cipro. 09/21/2016 bronchitis is improved. Probably needs a couple more days of Cipro. 09/22/2016 he has had a week's worth of antibiotics. Bronchitis is quiet now. We will stop Cipro. 09/23/2016 he has completed antibiotics. 09/25/2016 he is not coughing at present. 10/05/2016 this has resolved. Current Visit: Yes Specialty Discharge - Follow Up or Referrals
[2016-10-05] MEDS: DOCUSATE SODIUM 100 MG CAPSULE PO SCH (08:44)
[2016-10-05] MEDS: APIXABAN 2.5 MG TABLET PO SCH ×2 (08:45→22:10)
[2016-10-05] MEDS: METOPROLOL TARTRATE 25 MG TABLET PO SCH ×2 (08:46→22:09)
[2016-10-05] MEDS: FERROUS SULFATE 325 MG TABLET PO SCH (08:46)
[2016-10-05] MEDS: POTASSIUM CHLORIDE 20 MEQ TABLET PO PRN ×3 (08:46→12:48)
[2016-10-05] MEDS: PANTOPRAZOLE 40 MG TABLET PO SCH (08:46)
[2016-10-05] MEDS: FUROSEMIDE 40 MG/4 ML VIAL IV SCH ×2 (08:48→16:44)
[2016-10-05] MEDS: ASPIRIN EC 325 MG TABLET PO SCH (08:48)
[2016-10-05] MEDS: AMIODARONE 200 MG TABLET PO SCH ×2 (08:48→22:09)
--- NOTE | 2016-10-05 08:50 | Cardiothoracic Progress Note ---
Cardiothoracic Subjective Interval history: Patient looks and feels okay. Vital signs are stable and is breathing comfortably. Chest tube drainage is minimal so his final chest tube has been removed. We will try to gradually increase his activity today according to routine postoperative protocol and overall his progress seems satisfactory. Exam (Progress Note) - Constitutional Vitals: Period Temp Pulse Resp BP Sys/[place] Pulse Ox Last 24 Hr 97.6 F-99.6 F 87-102 15-27 118-135/42-65 91-99 Result/EKG - Labs CBC & BMP: 10/05/16 Unknown 10/05/16 Unknown Labs: Laboratory Results - last 24 hr 10/04/16 10/04/16 10/04/16 03:59 07:15 11:13 WBC RBC Hgb Hct MCV MCH MCHC RDW Plt Count MPV Neut % (Auto) Lymph % (Auto) [place] % (Auto) Eos % (Auto) Baso % (Auto) Neut # (Auto) Lymph # (Auto) [place] # (Auto) Eos # (Auto) Baso # (Auto) Immature Gran % Nucleated RBC % Immature Gran # Nucleated RBCs # Platelet Estimate Hypochromasia Morphology Comment Sodium Potassium Chloride Carbon Dioxide Anion Gap BUN Creatinine GFR Calculation BUN/Creatinine Ratio Glucose POC Glucose 140 H 104 300 H Calculated Osmolality Calcium Magnesium Total Bilirubin Direct Bilirubin Indirect Bilirubin AST ALT Alkaline Phosphatase Total Creatine Kinase CK-MB (CK-2) Troponin I Total Protein Albumin Globulin Albumin/Globulin Ratio 10/04/16 10/04/16 10/04/16 15:31 15:33 17:02 WBC RBC Hgb Hct MCV MCH MCHC RDW Plt Count MPV Neut % (Auto) Lymph % (Auto) [place] % (Auto) Eos % (Auto) Baso % (Auto) Neut # (Auto) Lymph # (Auto) [place] # (Auto) Eos # (Auto) Baso # (Auto) Immature Gran % Nucleated RBC % Immature Gran # Nucleated RBCs # Platelet Estimate Hypochromasia Morphology Comment Sodium Potassium Chloride Carbon Dioxide Anion Gap BUN Creatinine GFR Calculation BUN/Creatinine Ratio Glucose POC Glucose 404 H 390 H 243 H Calculated Osmolality Calcium Magnesium Total Bilirubin Direct Bilirubin Indirect Bilirubin AST ALT Alkaline Phosphatase Total Creatine Kinase CK-MB (CK-2) Troponin I Total Protein Albumin Globulin Albumin/Globulin Ratio 10/04/16 10/05/16 10/05/16 21:21 05:35 07:31 WBC RBC Hgb Hct MCV MCH MCHC RDW Plt Count MPV Neut % (Auto) Lymph % (Auto) [place] % (Auto) Eos % (Auto) Baso % (Auto) Neut # (Auto) Lymph # (Auto) [place] # (Auto) Eos # (Auto) Baso # (Auto) Immature Gran % Nucleated RBC % Immature Gran # Nucleated RBCs # Platelet Estimate Hypochromasia Morphology Comment Sodium Potassium Chloride Carbon Dioxide Anion Gap BUN Creatinine GFR Calculation BUN/Creatinine Ratio Glucose POC Glucose 108 H 78 77 Calculated Osmolality Calcium Magnesium Total Bilirubin Direct Bilirubin Indirect Bilirubin AST ALT Alkaline Phosphatase Total Creatine Kinase CK-MB (CK-2) Troponin I Total Protein Albumin Globulin Albumin/Globulin Ratio 10/05/16 10/05/16 Unknown Unknown WBC 8.3 RBC 3.48 L Hgb 10.5 L Hct 30.5 L MCV 87.6 MCH 30 MCHC 34.4 RDW 14.6 Plt Count 43 L MPV 10.8 Neut % (Auto) 76.1 H Lymph % (Auto) 10.1 L [place] % (Auto) 12.5 Eos % (Auto) 0.7 Baso % (Auto) 0.1 Neut # (Auto) 6.3 Lymph # (Auto) 0.8 L [place] # (Auto) 1.0 H Eos # (Auto) 0.1 Baso # (Auto) 0.0 Immature Gran % 0.5 Nucleated RBC % 0.0 Immature Gran # 0.04 Nucleated RBCs # 0.00 Platelet Estimate Decreased Hypochromasia 1+ Morphology Comment Sodium 140 Potassium 3.3 L Chloride 100 Carbon Dioxide 33 H Anion Gap 10.3 BUN 48 H Creatinine 1.60 H GFR Calculation 42 BUN/Creatinine Ratio 30.00 H Glucose 64 L POC Glucose Calculated Osmolality 289.4 Calcium 8.3 L Magnesium 2.3 Total Bilirubin 1.80 H Direct Bilirubin 0.50 H Indirect Bilirubin 1.3 H AST 34 ALT 27 Alkaline Phosphatase 71 Total Creatine Kinase 86 D CK-MB (CK-2) 3.4 D Troponin I 1.790 H D Total Protein 4.8 L Albumin 2.5 L Globulin 2.3 Albumin/Globulin Ratio 1.0 L Quality Measures - VTE Contraindication to Pharmacological VTE Prophylaxis: High Risk of Bleeding - Stroke Onset of Symptoms Date: 09/05/16 Onset of Symptoms Time: 15:30 Symptom Onset Unknown: No Specialty Discharge - Follow Up or Referrals
[2016-10-05] MEDS: CHLORHEXIDINE 0.12% ORAL RINSE 60 ML BOTTLE SWISH/SPIT SCH ×2 (09:30→22:10)
--- NOTE | 2016-10-05 10:38 | Cardiology Progress Note ---
Assessment and Plan - Time spent with patient Time spent with patient: Less than 30 minutes (1) Acute on chronic renal failure Status: Acute Assessment and plan: See plan of care listed below. Current Visit: Yes (2) Severe aortic stenosis Status: Chronic Assessment and plan: See plan of care listed below. Current Visit: Yes (3) Coronary artery disease Status: Chronic Assessment and plan: See plan of care listed below. Current Visit: Yes Qualifiers: Coronary Disease-Associated Artery/Lesion type: [place] artery [place] vs. transplanted heart: [place] heart Associated angina: without angina Qualified Code(s): I25.10 - Atherosclerotic heart disease of [place] coronary artery without angina pectoris (4) Atrial flutter by electrocardiogram Status: Acute Assessment and plan: See plan of care listed below. Current Visit: Yes (5) Hypertension Status: Chronic Assessment and plan: See plan of care listed below. Current Visit: Yes (6) Diabetes mellitus Status: Chronic Assessment and plan: See plan of care listed below. Current Visit: Yes Qualifiers: Diabetes mellitus type: type 2 Chronic kidney disease stage: stage 3 ( moderate) (7) Pleural effusion Status: Acute Assessment and plan: See plan of care listed below. Current Visit: Yes Cardiology - PN: Subj Interval history: FLAME CUTTER: DR. ALEXANDER Mr. Frazier is a 86 year old male with a history of coronary artery disease, hypertension, hyperlipidemia, type 2 diabetes mellitus, chronic kidney disease. He is status post coronary artery bypass grafting August 06 2001 with SINGH to the LAD and vein graft to the circumflex marginal and right coronary arteries. He is status post right carotid endarterectomy July 03, 2002. He was admitted to the hospital after an episode of syncope and prolonged weakness. Echocardiogram showed severe aortic stenosis and cardiac catheterization root revealed patency of an internal mammary graft and circumflex graft although the circumflex graft has an ostial stenosis. The right coronary graft is occluded but the mentasta right coronary does not have significant obstructive lesions. He underwent chest CTA on 09/27/2016 further evaluation of the position of his SINGH bypass graft and was planned for surgery on 10/02/2016. Throughout hospitalization he has had trouble with recurrent right pleural effusion and acute on chronic renal failure. Mr. Frazier is postop day #3 from aortic valve replacement as well as a pericardial patch graft of saphenous vein graft to the left circumflex distribution. He has been extubated and this morning his chest tubes were removed. He has now housed on the telemetry unit and is doing well. Believe there are plans for him to start working with physical therapy. Postoperatively he has remained in sinus rhythm. He continues to have some anasarca. He reports he is feeling 100% better. ASSESSMENT/PLAN: 1. ACUTE ON CHRONIC RENAL FAILURE -nephrology continues to follow. 2. SEVERE AORTIC STENOSIS -postop day #3 from aortic valve replacement. Hemodynamically stable and doing well at this time. 3. CORONARY ARTERY DISEASE -postop day #3.Adequately revascularized except for the ostial vein graft to the first obtuse marginal which now has a nice vein graft pericardial patch. 4. ATRIAL FLUTTER BY ELECTROCARDIOGRAM -has been in normal sinus rhythm postoperatively. He has been started on some amiodarone. 5. HYPERTENSION - Currently well controlled. He was hypotensive following surgery but is now no longer requiring the use of vasopressors. 6. DIABETES MELLITUS -his on Accu-Cheks before meals and at bedtime with sliding scale insulin. 7. PLEURAL EFFUSION -pulmonology is following. His right chest tube has been removed. His x-ray show some slightly increased interstitial edema. Exam (Progress Note) - Constitutional Vitals: Period Temp Pulse Resp BP Sys/Hurtado Pulse Ox Last 24 Hr 97.6 F-99.6 F 87-101 15-27 118-135/42-65 91-99 Exam: General: Present: Appears Well, No Apparent Distress. Pleasant and cooperative. Appears comfortable. HEENT: Present: PERRL, Normocephaly, atraumatic. Mucus Membranes Moist. No jaundice noted. Conjunctiva moist and clear, sclerae anicteric Neck: Present: Supple Neck, Midline Trachea, No Masses, No tenderness Cardiac: Present: Regular Rate and Rhythm with prominent S4, midline sternal dressing dry and intact. Mediastinal chest tubes removed this morning. No rubs Lungs: Present: Clear to auscultation bilaterally, right pleural chest tube removed this morning. Neuro: Present: Awake, alert, and oriented x3. Moves all extremities well without hemiparesis or paralysis. Grossly Intact. Absent: Resting Tremor, Essential Tremor Abdomen: Present: Soft, Active Bowel Sounds, No Masses, Non-Tender, nondistended. No abdominal bruit or thrill noted. Skin: Present: Clear. Absent: Rash, No skin breakdown. Musculoskeletal: Present: No Fluid Collection, No Pain, Normal Range of Motion Extremities: Present: Normal Gait, No Clubbing, No Cyanosis, Upper Extr. Pulses 2+, Lower Extr. Pulses 2+, 1-2+ edema to bilateral lower extremities and upper extremities. Capillary refill less than 3 seconds. Result/EKG - Labs CBC & BMP: 10/05/16 Unknown 10/05/16 Unknown Lab Results: I have reviewed the past 24 hour labs Labs: Laboratory Results - last 24 hr 10/04/16 10/04/16 10/04/16 11:13 15:31 15:33 WBC RBC Hgb Hct MCV MCH MCHC RDW Plt Count MPV Neut % (Auto) Lymph % (Auto) Mccreary % (Auto) Eos % (Auto) Baso % (Auto) Neut # (Auto) Lymph # (Auto) [place] # (Auto) Eos # (Auto) Baso # (Auto) Immature Gran % Nucleated RBC % Immature Gran # Nucleated RBCs # Platelet Estimate Hypochromasia Morphology Comment Sodium Potassium Chloride Carbon Dioxide Anion Gap BUN Creatinine GFR Calculation BUN/Creatinine Ratio Glucose POC Glucose 300 H 404 H 390 H Calculated Osmolality Calcium Magnesium Total Bilirubin Direct Bilirubin Indirect Bilirubin AST ALT Alkaline Phosphatase Total Creatine Kinase CK-MB (CK-2) Troponin I Total Protein Albumin Globulin Albumin/Globulin Ratio 10/04/16 10/04/16 10/05/16 17:02 21:21 05:35 WBC RBC Hgb Hct MCV MCH MCHC RDW Plt Count MPV Neut % (Auto) Lymph % (Auto) [place] % (Auto) Eos % (Auto) Baso % (Auto) Neut # (Auto) Lymph # (Auto) [place] # (Auto) Eos # (Auto) Baso # (Auto) Immature Gran % Nucleated RBC % Immature Gran # Nucleated RBCs # Platelet Estimate Hypochromasia Morphology Comment Sodium Potassium Chloride Carbon Dioxide Anion Gap BUN Creatinine GFR Calculation BUN/Creatinine Ratio Glucose POC Glucose 243 H 108 H 78 Calculated Osmolality Calcium Magnesium Total Bilirubin Direct Bilirubin Indirect Bilirubin AST ALT Alkaline Phosphatase Total Creatine Kinase CK-MB (CK-2) Troponin I Total Protein Albumin Globulin Albumin/Globulin Ratio 10/05/16 10/05/16 10/05/16 07:31 Unknown Unknown WBC 8.3 RBC 3.48 L Hgb 10.5 L Hct 30.5 L MCV 87.6 MCH 30 MCHC 34.4 RDW 14.6 Plt Count 43 L MPV 10.8 Neut % (Auto) 76.1 H Lymph % (Auto) 10.1 L Mccreary % (Auto) 12.5 Eos % (Auto) 0.7 Baso % (Auto) 0.1 Neut # (Auto) 6.3 Lymph # (Auto) 0.8 L [place]reary # (Auto) 1.0 H Eos # (Auto) 0.1 Baso # (Auto) 0.0 Immature Gran % 0.5 Nucleated RBC % 0.0 Immature Gran # 0.04 Nucleated RBCs # 0.00 Platelet Estimate Decreased Hypochromasia 1+ Morphology Comment Sodium 140 Potassium 3.3 L Chloride 100 Carbon Dioxide 33 H Anion Gap 10.3 BUN 48 H Creatinine 1.60 H GFR Calculation 42 BUN/Creatinine Ratio 30.00 H Glucose 64 L POC Glucose 77 Calculated Osmolality 289.4 Calcium 8.3 L Magnesium 2.3 Total Bilirubin 1.80 H Direct Bilirubin 0.50 H Indirect Bilirubin 1.3 H AST 34 ALT 27 Alkaline Phosphatase 71 Total Creatine Kinase 86 D CK-MB (CK-2) 3.4 D Troponin I 1.790 H D Total Protein 4.8 L Albumin 2.5 L Globulin 2.3 Albumin/Globulin Ratio 1.0 L - EKG EKG results: interpreted by me, sinus rhythm Quality Measures - VTE Contraindication to Pharmacological VTE Prophylaxis: High Risk of Bleeding - Stroke Onset of Symptoms Date: 09/05/16 Onset of Symptoms Time: 15:30 Symptom Onset Unknown: No Specialty Discharge - Follow Up or Referrals
[2016-10-05] MEDS: INSULIN REGULAR 100 UNIT/ML SUBCUT SCH ×3 (12:48→22:08)
[2016-10-05] MEDS: ONDANSETRON 4 MG/2 ML VIAL IV PRN ×2 (15:11→22:08)
[2016-10-05] MEDS: DESITIN 4OZ/NYSTATIN 15 GRAM MIXTURE PASTE TOP SCH ×2 (16:48→22:10)
--- NOTE | 2016-10-05 19:22 | Nephrology Progress Note ---
Nephrology - PN: Subj Interval history: He is now on telemetry. He denies shortness of breath. Exam (PN)-Nephrology - Vital Signs Vital signs: Period Temp Pulse Resp BP Sys/[place] Pulse Ox Last 24 Hr 96.7 F-99.6 F 87-99 18-22 114-137/57-65 92-99 Exam: ENT: Normal Cardiovascular: Regular rate and rhythm. No murmur rub or gallop Lungs: Clear Extremities: 1+ edema - Lab 10/05/16 Unknown 10/05/16 Unknown Most recent lab results ABG pH 7.393 (7.35-7.45) 10/03/16 11:33 ABG pCO2 45.9 MM HG (35-48) 10/03/16 11:33 ABG pO2 145.2 MM HG (80-95) H 10/03/16 11:33 ABG HCO3 27.3 MMOL/L (20-26) H 10/03/16 11:33 ABG O2 Saturation 98.5 % (95-100) 10/03/16 11:33 Calcium 8.3 MG/DL (8.5-10.1) L 10/05/16 Unknown Magnesium 2.3 MG/DL (1.8-2.4) 10/05/16 Unknown Assessment and Plan (1) Acute on chronic renal failure Status: Acute Assessment and plan: 86-year-old man with: * CRF stage III. Renal function improved. Fluid balance negative * Aortic stenosis. Status post valve replacement * CAD. * Diabetes mellitus * Hypertension Current Visit: Yes (2) Near syncope Status: Acute Current Visit: Yes (3) Pleural effusion Status: Acute Current Visit: Yes (4) Coronary artery disease Status: Chronic Current Visit: Yes Qualifiers: Coronary Disease-Associated Artery/Lesion type: [place] artery [place] vs. transplanted heart: circle heart Associated angina: without angina Qualified Code(s): I25.10 - Atherosclerotic heart disease of [place] coronary artery without angina pectoris (5) Diabetes mellitus Status: Chronic Current Visit: Yes Qualifiers: Diabetes mellitus type: type 2 Chronic kidney disease stage: stage 3 ( moderate) (6) Hypertension Status: Chronic Current Visit: Yes Qualifiers: Hypertension type: essential hypertension Qualified Code(s): I10 - Essential (primary) hypertension (7) Severe aortic stenosis Status: Chronic Current Visit: Yes (8) Bradycardia Status: Resolved Current Visit: Yes Specialty Discharge - Follow Up or Referrals
[2016-10-05] MEDS: ATORVASTATIN 80 MG TABLET PO SCH (22:10)
[2016-10-06] MEDS: IPRATROPIUM 500 MCG/2.5 ML NEB RESP TX SCH ×4 (00:28→19:26)
[2016-10-06 05:30] LABS: Basophils % 0.1 % (0.0-0.8); Eosinophils # 0.1 10*3/uL (0.0-0.87); Eosinophils % 1.3 % (0.00-10.9); Hematocrit 29.9 VOL% (42.0-52.0); Hemoglobin 10.1 GM/DL (14.0-18.0); Immature Granulocytes % 0.3 %; Immature Granulocytes Absolute 0.02 #; Lymphocytes # 0.8 10*3/uL (1.4-4.0); Mean Corpuscular HGB Conc 33.8 GM/DL (32-36); Mean Corpuscular Hemoglobin 30 PG (27-34); Mean Corpuscular Volume 89.8 FL (87-102); Monocytes # 0.9 10*3/uL (0.11-0.8); Monocytes % 11.8 % (1.7-12.7); Neutrophils # 5.8 10*3/uL (1.4-7.4); Neutrophils % 75.5 % (38.7-73.9); Platelet Count 49 T/CUMM (130-400); Red Blood Count 3.33 MC/CUMM (3.8-5.5); Red Cell Distribution Width 14.6 % (9.3-17.3); White Blood Count 7.6 T/CUMM (4-12)
[2016-10-06 06:09] LABS: Alanine Aminotransferase 27 U/L (16-61); Albumin 2.3 G/DL (3.4-5.0); Alkaline Phosphatase 80 U/L (45-117); Aspartate Amino Transferase 27 U/L (0-37); Bilirubin,Indirect 1.1 MG/DL (0.0-1.0); Blood Urea Nitrogen 49 MG/DL (7-18); Calcium 8.4 MG/DL (8.5-10.1); Glucose 157 MG/DL (74-106); Magnesium 2.4 MG/DL (1.8-2.4); Osmolality,Calculated 294.4 MOS/KG (273-304); Potassium 4.2 MMOL/L (3.5-5.1); Sodium 140 MMOL/L (136-145); Total Protein 4.8 G/DL (6.4-8.3)
[2016-10-06 06:22] LABS: Band Neutrophils 2 % (0-10); Eosinophils 1 % (0-10); Lymphocytes 8 % (20-55); Myelocytes 4 %; Segmented Neutrophils 84 % (50-85); Total Cells Counted 100
[2016-10-06 06:25] LABS: Anisocytosis 1+; Platelet Estimate Decreased
--- NOTE | 2016-10-06 07:16 | Pulmonology Progress Note ---
Pulmonary - PN: Subj Interval history: This 86-year-old white male has congestive heart failure due to aortic stenosis. Also has atherosclerotic heart disease with previous coronary bypass surgery. Needs to have his IV aortic valve replaced. He has a right pleural effusion. His chest x-ray looks a little bit better today as far as the pulmonary edema is concerned. However we gave him Lasix yesterday and his creatinine has risen a little more. I think we would do best to get the right pleural fluid drained in preparation for surgery. Will ask interventional radiology to do this since it appears to be loculated laterally and would be safely done with ultrasound guidance. Patient is not sleeping well. Should tolerate some Ativan at bedtime. Quite anxious. I should note that the reason he has pleural fluid on the right and not the left is that he has had a previous left decortication. 09/18/2016 we have tried to diurese him and it has not been very successful. His creatinine has risen. He had a right thoracentesis with removal of 800 mL of fluid but he had his CT scan yesterday still showed significant right effusion. The pleural fluid is a transudate. Certainly think this is due to congestive heart failure, due to his aortic stenosis. It will be very difficult to treat his heart failure without the valve being replaced. However he is at high risk for surgery given his fragile state and acute kidney injury with Lasix and low cardiac output. Will ask nephrology to see if they can help us with this. Patient at present is about the same as far as her shortness of breath. He is empirically on antibiotics. 09/19/2016 he continues to complain of dyspnea. Primarily says he has trouble breathing through his nose. He is on 2 different nose sprays in his nasal passages appear open on my exam. I think is primarily short of breath related to his congestive heart failure/aortic stenosis. Renal function is a little better. Perhaps getting further out from contrast studies is helping. We do need to try to diurese him further. Nephrology is following as well. 09/20/2016 patient feels a little better sitting up in the chair. However his chest x-ray shows that the right pleural effusion has increased in size. Having a difficult time diuresing him with his creatinine 2.8. Would recommend putting a pleural catheter in the right side to drain this. Hopefully this will help us prep him for possible aortic valve replacement. The pleural effusion is due to congestive heart failure, however they are having a difficult time diuresing him. 09/21/2016 breathing is better since getting the pleural catheter. Chest x-ray today pending. Renal function getting a little better. Hopefully can plan aortic valve surgery soon. 09/22/2016 patient feels a little better. Should be able to tolerate nasal biprong's now. Chest x-ray shows the right pleural effusion has been evacuated. Put out about 200 mL from chest tube since yesterday morning. Need to keep it in for now. Renal function reports are pending from this morning. He does appear to be holding his own layer. Still has some peripheral edema and we need to bump with Lasix again. In my opinion he will need to have aortic valve surgery in order to get back to any meaningful life at home. Otherwise he will be a bed to chair existence. Certainly some risk involved as far as postoperative renal function and/or respiratory failure, but I favor proceeding with surgery next week. 09/23/2016 put out another 400 mL from his chest tube yesterday. Still has peripheral edema. We need to diurese him further. Renal insufficiency makes it difficult. Dr. Mehta wants to do a CT angiogram to further evaluate his aortic arch. His creatinine is down to 2.3. I feel sure further contrast would bump his creatinine up above 3 again and perhaps worse. I do think he would be better off having surgery then not having surgery. I do not think he can go home and come back as he still has a pleural catheter in. We may consider doing a pleurodesis, which is unusual for a transudative type effusion , and only works about half the time in this situation. 09/24/2016 his right pleural catheter came out during the night. Chest x-ray this morning shows the right lung well expanded. He does have some interstitial edema and some interstitial scarring. Creatinine has come down further to 2.1. We need to try to diurese him further. Would not replace the pleural catheter at this point. 09/25/2016 patient needs to be more active. Creatinine is come down to 1.9. Plans are for a CT angiogram of the chest tomorrow. Will need to watch renal function closely after that. Since the CT is planned I will not order chest x- ray 09/26/2016 CT angiogram was canceled because creatinine was up to 2.1. Defer to nephrology, cardiovascular surgery, and radiology on plans there. His chest x- ray shows recurrence of right pleural effusion. Not as much as before but still there. We are trying to diurese him as much as his kidneys will allow. He still has peripheral edema. 09/27/[address] angiogram today. Dr. Mehta to review to decide about surgery. Creatinine was 1.9 this morning. Patient had episode of increased dyspnea last night. Did get better with 1 mg of morphine. If he is to have surgery in the next couple of days, then the right pleural fluid could be drained at that time. If surgery is delayed for several days to follow renal function, then he should have the right pleural catheter replaced. 09/28/2016 patient feels better today. Sleeping better. Less dyspneic. Chest CT angiogram done yesterday and creatinine remains 1.9. Dr. Mehta to review the CT and make plans as far as surgery is concerned. Patient is anxious to go ahead with the surgery. 09/29/2016 patient sleeping in recliner. Dyspnea is improved. Renal function has improved with creatinine 1.7. Plans are for surgery Sunday with coronary bypass surgery of one vessel and aortic valve replacement. Pleural drainage will take care of the right effusion at that time. Stable from pulmonary standpoint. Please call pulmonary vocational rehab consultant this weekend if needed. 10/02/16 Pt seen in CVR, on vent. C.O. 3.6 L. PCW 25. ABG's ok. Wean per protocol. CXR OK. 10/03/2016 patient awake and responsive squeezes fingers on command. ABGs improved. Earlier attempt at CPAP this morning reveal that he had apneic episodes so it was terminated. Hopefully will be able to do CPAP get extubated this morning. His chest x-ray looks okay. Urine output has been marginal. His weight is up 6 kg from pre surgery. Agree with Lasix infusion. Need to decrease IV fluids. 10/04/2016 patient alert oriented. No air leak from right chest tube. Decreased fluid output from mediastinal tube. Oxygen saturation looks good. Patient taking oral feedings. Discussed case with Dr. Mehta. Plans are for patient to go to the floor hopefully later today. 10/05/2016 patient now on telemetry. Right chest tube is been removed. His x- ray show some slightly increased interstitial edema. Creatinine is 2.1. Probably needs to be on a daily dose of Lasix. Oxygen saturation acceptable on low flow oxygen. Will need a good bit of physical therapy. Agree with plans for cardiac rehab. 10/06/2016 patient walking in the room. Oxygen saturation 100% on 2 L. Creatinine down to 1.8. Hopefully can be discharged soon. Strongly recommend cardiac rehab post discharge. This was discussed with the patient. Exam (Progress Note) - Constitutional Vitals: Period Temp Pulse Resp BP Sys/[place] Pulse Ox Last 24 Hr 96.7 F-98.9 F 73-98 16-22 114-137/53-76 92-100 Exam: Patient's responsive, comfortable flat in bed. Squeezes fingers on command. Doing well off the ventilator. O2 sat 100% on 2 L. Pupils react to light. Neck supple no bruits. Chest shows a few basilar crackles at the right base. Dullness at right base to percussion. Heart normal rate rhythm grade 1/6 systolic murmur at right base. Abdomen soft nontender no masses. Bowel sounds present. Extremities no clubbing or cyanosis. 1+ edema. Calves nontender. Results - Labs CBC & BMP: 10/06/16 04:50 10/06/16 04:50 Lab Results: I have reviewed the past 24 hour labs - Diagnostic Findings Procedure: Chest x-ray: image reviewed by me (Chest x-ray okay post chest tube removal. Has some pleural thickening on the right side.) Assessment and Plan (1) Syncope Status: Acute Assessment and plan: Syncope likely due to cardiac causes related to his aortic stenosis. 09/15/16 likely due to his aortic stenosis. 09/18/2016 again the syncope is likely due to his aortic stenosis. 09/20/2016 no symptoms of postural syncope at this time 10/03/2016 syncope was what led to his admission with the finding of severe aortic stenosis Current Visit: Yes (2) Chronic kidney disease Status: Chronic Assessment and plan: Creatinine is 2.1. He has had some renal insufficiency for quite some time related to vascular disease and diabetes. At present I think he is ahead on fluid. I will bump him with Lasix. 09/15/16 creatinine up to 2.3 after a dose of Lasix. Afraid to diurese any more vigorously at present. Asking interventional radiology to drain the loculated right effusion. This should help getting prepped for aortic valve replacement. 09/18/2016 creatinine up to 2.8. Difficulty mobilizing right pleural effusion fluid 09/19/2016 renal function is a little better today. Creatinine down to 2.4. May have had a bump in creatinine related to his contrast last week. 09/20/2016 creatinine up to 2.8. 09/21/2016 creatinine down to 2.5. Improving. Hopefully getting further out from contrast 09/22/2016 chemistries pending today. Hopefully can get creatinine back down to around 2. 09/23/2016 creatinine down to 2.3. This despite giving diuretics. 09/24/2016 creatinine down to 2.1. 09/25/2016 creatinine down to 1.9. This is about baseline for him. 09/26/2016 creatinine 2.1 today. Nephrology following. 09/27/2016 renal function about baseline for him at 1.9 creatinine. Likely will see a rise over the next couple of days due to the contrast today. 09/28/2016 creatinine 1.9 and appear stable despite getting repeat contrast yesterday 09/29/2016 creatinine down to 1.7 despite contrast and diuretics. 10/02/16 Renal function intact now. Cr 1.5 this AM. 10/03/2016 creatinine 1.9. Urine output down to about 20-25 cc an hour. Weight up 6 kg. Agree with Lasix infusion. 10/04/2016 creatinine 2.1 and urine output pretty good on Lasix infusion. Agree with change to intermittent Lasix. 10/05/2016 creatinine 2.1. Needs IV Lasix on a daily basis. 10/06/2016 renal function improved. Creatinine 1.8. Current Visit: Yes Qualifiers: Chronic kidney disease stage: stage 3 (moderate) Qualified Code(s): N18.3 - Chronic kidney disease, stage 3 (moderate) (3) Coronary artery disease Status: Chronic Assessment and plan: Previous coronary bypass surgery with additional findings at catheterization this admission. 09/25/2016 patient not having any active angina. 09/28/2016 previous coronary bypass surgery. 09/29/1969 will have 1 of coronary bypass is redone. 10/02/16 Had patch bovine graft of one of previous CABG vein grafts. 10/03/2016 status post redo coronary bypass with patch graft. 10/06/2016 status post repair with patch graft. 10/06/2016 status post repair with patch graft. No angina. Current Visit: Yes Qualifiers: Coronary Disease-Associated Artery/Lesion type: [place] artery [place] vs. transplanted heart: [place] heart Associated angina: without angina Qualified Code(s): I25.10 - Atherosclerotic heart disease of [place] coronary artery without angina pectoris (4) Pulmonary hypertension Status: Chronic Assessment and plan: This was not quantified on the echo but is likely to be secondary to his left heart disease with aortic stenosis. 09/15/16 this should be due to his aortic stenosis and congestive heart failure. 09/18/2016 secondary to his left heart disease. 09/20/2016 this is due to his left heart disease. 09/21/2016 due to left heart disease. 09/22/2016 this is secondary to his left heart disease, primarily aortic stenosis 09/23/2016 this is secondary to his aortic stenosis. 09/24/2016 secondary to left heart disease. 09/27/2016 again this is felt to be secondary to his left heart disease primarily aortic stenosis 09/28/2016 apparently due to left heart disease/aortic stenosis 09/29/2016 again this is due to left heart disease. 10/02/16 PA pressures lower since AVR. 10/03/2016 systolic PA pressure in the mid 30s. Continues to improve. 10/04/2016 Lutz-Nika catheter to be removed today. PA diastolic around 20. 10/05/2016 when his PA line was in place it demonstrated that the peak pulmonary artery pressure had come down as a result of surgery. 10/06/2016 this is due to left heart disease. No specific treatment indicated. Current Visit: Yes (5) Severe aortic stenosis Status: Chronic Assessment and plan: Has severe aortic stenosis by echo and catheterization. Likely the possible cause of his congestive heart failure and pulmonary hypertension. 09/15/16 hopefully can have surgery when we get him tuned up. 09/18/2016 will need surgery if he can tolerate it. 09/19/2016 hopefully we can get him tuned up where he can tolerate AVR. 09/20/2016 aortic valve surgery is indicated when we can get him tuned up for it. 09/21/2016 need surgery. Trying to get him tuned up for that. If renal function is stable and right pleural effusion totally evacuated, then hopefully could plan sign. 09/22/2016 x-ray is better. Less dyspnea. If renal function is stable, I would be in favor of proceeding with surgery next week. 09/23/16 ideally should be repaired surgically or replaced. He has some chronic bronchitis but does not have severe COPD. 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 09/24/2016 again trying to tune him up so he can have his aortic valve replaced or repaired. 09/25/2016 trying to get him to the point where he can have his aortic valve replaced or repaired. Needs more physical activity. 09/26/2016 continuing to try to get him where he can tolerate aortic valve surgery. 09/27/[address] done this morning for Dr. Mehta to review. 09/28/2016 Dr. Mehta to review CT and decide whether to proceed with aortic valve replacement or repair 09/29/2016 this has become severe and is causing congestive heart failure. Has well-maintained LV ejection fraction. Set up for surgery Sunday to replace the valve 10/02/16 Post AVR. Weaning from vent will take overnight probably. 10/03/2016 status post aortic valve replacement. Cardiac output is better. Pulmonary capillary wedge pressure still in the low 20s. Diuresing 10/04/2016 status post aVR. 10/05/2016 status post AVR. Seems to be functioning well. 10/06/2016 status post repair. Valve appears to be working well. Current Visit: Yes (6) Diabetes mellitus Status: Chronic Assessment and plan: Has some hyperglycemia. Adding sliding scale. 09/15/16 glucoses in the 140-200 range. 09/18/2016 glucoses look okay. 09/19/2016 glucoses are fairly well controlled. 09/20/2016 glucoses look better. 09/21/2016 still mildly elevated glucoses. 09/22/2016 glucoses fairly well controlled. 09/23/2016 blood sugars are okay. 09/24/2016 glucoses are a little high. Adjust insulin, increase Lantus to 15 units. 09/25/2016 glucoses a little better. 09/26/2016 blood sugars are acceptable. 09/27/2016 blood sugars running in the 85-90 range. 09/28/2016 glucoses well controlled. 09/29/2016 blood sugars fairly well controlled. 10/02/16 Glucoses stable on SS insulin. 10/03/2016 glucoses very well controlled 10/04/2016 glucoses well controlled 10/05/2016 glucoses elevated. He is off the infusion. I am resuming before meals and at bedtime sliding scale. 10/06/2016 glucoses fairly well controlled. May need some Lantus insulin before going home Current Visit: Yes Qualifiers: Diabetes mellitus type: type 2 Chronic kidney disease stage: stage 3 ( moderate) (7) Acute bronchitis Status: Resolved Assessment and plan: Based on the change in sputum color and elevated white count 16,000 think is reasonable to cover him with antibiotics for this. Will use Atrovent for bronchodilators. 09/15/16 empirically on antibiotics and Atrovent. I think his main problem respiratory escobar is congestive heart failure related to his aortic stenosis. Would not delay surgery for bronchitis in this situation 09/18/2016 on empiric antibiotics. 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 It is sensitive to Cipro. I will change him to oral Cipro. 09/20/2016 I do not hear any rhonchi. He is on oral Cipro. 09/21/2016 bronchitis is improved. Probably needs a couple more days of Cipro. 09/22/2016 he has had a week's worth of antibiotics. Bronchitis is quiet now. We will stop Cipro. 09/23/2016 he has completed antibiotics. 09/25/2016 he is not coughing at present. 10/05/2016 this has resolved. Current Visit: Yes Specialty Discharge - Follow Up or Referrals
--- NOTE | 2016-10-06 07:34 | XRay Report ---
XR chest 1V portable Indication: Shortness of breath Comparison: 05 October 2016 Findings: The heart and mediastinum are stable in size and configuration with cardiac surgery changes. Right chest tube has been removed. The pulmonary vascularity is increased with bilateral interstitial pulmonary density similar to previous exam. There is residual right pleural effusion. No other lung infiltrates, effusions, pneumothorax or other abnormality is demonstrated. Impression: Removal of right-sided chest tube. No other significant changes. PROCEDURE INTERPRETED AT [facility] DEPARTMENT OF RADIOLOGY Final Report Signed by: Dr. Emerson Dickson
[2016-10-06] MEDS: FUROSEMIDE 40 MG/4 ML VIAL IV SCH ×2 (08:45→16:25)
[2016-10-06] MEDS: DOCUSATE SODIUM 100 MG CAPSULE PO SCH (08:45)
[2016-10-06] MEDS: ASPIRIN EC 325 MG TABLET PO SCH (08:45)
[2016-10-06] MEDS: INSULIN REGULAR 100 UNIT/ML SUBCUT SCH ×4 (08:45→21:12)
[2016-10-06] MEDS: CHLORHEXIDINE 0.12% ORAL RINSE 60 ML BOTTLE SWISH/SPIT SCH ×2 (08:46→21:12)
[2016-10-06] MEDS: METOPROLOL TARTRATE 25 MG TABLET PO SCH ×2 (08:46→21:11)
[2016-10-06] MEDS: APIXABAN 2.5 MG TABLET PO SCH ×2 (08:46→21:11)
[2016-10-06] MEDS: AMIODARONE 200 MG TABLET PO SCH ×2 (08:46→21:12)
[2016-10-06] MEDS: PANTOPRAZOLE 40 MG TABLET PO SCH (08:46)
[2016-10-06] MEDS: FERROUS SULFATE 325 MG TABLET PO SCH (08:46)
[2016-10-06] MEDS: DESITIN 4OZ/NYSTATIN 15 GRAM MIXTURE PASTE TOP SCH ×2 (08:47→21:18)
--- NOTE | 2016-10-06 10:04 | Cardiology Progress Note ---
<Rosie Hsu E - Last Filed: 10/06/16 09:51> Assessment and Plan - Time spent with patient Time spent with patient: Less than 30 minutes (1) Acute on chronic renal failure Status: Acute Assessment and plan: See plan of care listed below. Current Visit: Yes (2) Severe aortic stenosis Status: Chronic Assessment and plan: See plan of care listed below. Current Visit: Yes (3) Coronary artery disease Status: Chronic Assessment and plan: See plan of care listed below. Current Visit: Yes Qualifiers: Coronary Disease-Associated Artery/Lesion type: [place] artery [place] vs. transplanted heart: [place] heart Associated angina: without angina Qualified Code(s): I25.10 - Atherosclerotic heart disease of [place] coronary artery without angina pectoris (4) Atrial flutter by electrocardiogram Status: Acute Assessment and plan: See plan of care listed below. Current Visit: Yes (5) Hypertension Status: Chronic Assessment and plan: See plan of care listed below. Current Visit: Yes (6) Diabetes mellitus Status: Chronic Assessment and plan: See plan of care listed below. Current Visit: Yes Qualifiers: Diabetes mellitus type: type 2 Chronic kidney disease stage: stage 3 ( moderate) (7) Pleural effusion Status: Acute Assessment and plan: See plan of care listed below. 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 ALEXANDER Mr. Frazier is a 86 year old male with a history of coronary artery disease, hypertension, hyperlipidemia, type 2 diabetes mellitus, chronic kidney disease. He is status post coronary artery bypass grafting August 06 2001 with SINGH to the LAD and vein graft to the circumflex marginal and right coronary arteries. He is status post right carotid endarterectomy July 03, 2002. He was admitted to the hospital after an episode of syncope and prolonged weakness. Echocardiogram showed severe aortic stenosis and cardiac catheterization root revealed patency of an internal mammary graft and circumflex graft although the circumflex graft has an ostial stenosis. The right coronary graft is occluded but the [place] right coronary does not have significant obstructive lesions. He underwent chest CTA on 09/27/2016 further evaluation of the position of his SINGH bypass graft and was planned for surgery on 10/02/2016. Throughout hospitalization he has had trouble with recurrent right pleural effusion and acute on chronic renal failure. Mr. Frazier is postop day #4 from aortic valve replacement as well as a pericardial patch graft of saphenous vein graft to the left circumflex distribution. He has been extubated and chest tubes have been removed. He has now housed on the telemetry unit and is doing well. He has started working with physical therapy. Postoperatively he has remained in sinus rhythm. He continues to have some anasarca. He reports he is feeling 100% better although he still has some mild dyspnea. Due to nasal swab on 10/02/16 returning MRSA, patient has been placed in contact precautions. ASSESSMENT/PLAN: 1. ACUTE ON CHRONIC RENAL FAILURE -nephrology continues to follow. Creatinine 1.8 today. 2. SEVERE AORTIC STENOSIS -postop day #4 from aortic valve replacement. Hemodynamically stable and doing well at this time. 3. CORONARY ARTERY DISEASE -postop day #4. Adequately revascularized except for the ostial vein graft to the first obtuse marginal which now has a nice vein graft pericardial patch. 4. ATRIAL FLUTTER BY ELECTROCARDIOGRAM -has been in normal sinus rhythm postoperatively. He has been started on some amiodarone and is tolerating this well. 5. HYPERTENSION - Currently well controlled. He was hypotensive following surgery but is now no longer requiring the use of vasopressors and has been hemodynamically stable. 6. DIABETES MELLITUS -his on Accu-Cheks before meals and at bedtime with sliding scale insulin. 7. PLEURAL EFFUSION -pulmonology is following. His right chest tube has been removed. His x-ray show some residual right pleural effusion. Will continue with diuresis. Exam (Progress Note) - Constitutional Vitals: Period Temp Pulse Resp BP Sys/[place] Pulse Ox Last 24 Hr 96.7 F-98.9 F 73-94 16-22 114-137/53-76 95-100 Exam: General: Present: Appears Well, No Apparent Distress. Pleasant and cooperative. Appears comfortable. HEENT: Present: PERRL, Normocephaly, atraumatic. Mucus Membranes Moist. No jaundice noted. Conjunctiva moist and clear, sclerae anicteric Neck: Present: Supple Neck, Midline Trachea, No Masses, No tenderness Cardiac: Present: Regular Rate and Rhythm, midline sternal incision well approximated, no bleeding, edema, or redness. mild drainage from distal end of incision, covered with gauze dressing. No rubs Lungs: Present: Few basilar rales, more on the right posteriorly, otherwise Clear to auscultation bilaterally. Neuro: Present: Awake, alert, and oriented x3. Moves all extremities well without hemiparesis or paralysis. Grossly Intact. Absent: Resting Tremor, Essential Tremor Abdomen: Present: Soft, Active Bowel Sounds, No Masses, Non-Tender, nondistended. No abdominal bruit or thrill noted. Skin: Present: Clear. Absent: Rash, No skin breakdown. Musculoskeletal: Present: No Fluid Collection, No Pain, Normal Range of Motion Extremities: Present: Normal Gait, No Clubbing, No Cyanosis, Upper Extr. Pulses 2+, Lower Extr. Pulses 2+, 1-2+ edema to bilateral lower extremities and upper extremities. Capillary refill less than 3 seconds. Result/EKG - Labs CBC & BMP: 10/06/16 04:50 10/06/16 04:50 Lab Results: I have reviewed the past 24 hour labs Labs: Laboratory Results - last 24 hr 10/05/16 10/05/16 10/05/16 11:19 16:14 20:39 WBC RBC Hgb Hct MCV MCH MCHC RDW Plt Count MPV Neut % (Auto) Lymph % (Auto) [place] % (Auto) Eos % (Auto) Baso % (Auto) Neut # (Auto) Lymph # (Auto) [place] # (Auto) Eos # (Auto) Baso # (Auto) Total Counted Immature Gran % Nucleated RBC % Immature Gran # Segmented Neutrophils Band Neutrophils Lymphocytes Monocytes Eosinophils Myelocytes Nucleated RBCs # Platelet Estimate Anisocytosis Sodium Potassium Chloride Carbon Dioxide Anion Gap BUN Creatinine GFR Calculation BUN/Creatinine Ratio Glucose POC Glucose 201 H 123 H 218 H Calculated Osmolality Calcium Magnesium Total Bilirubin Direct Bilirubin Indirect Bilirubin AST ALT Alkaline Phosphatase Total Creatine Kinase CK-MB (CK-2) Troponin I Total Protein Albumin Globulin Albumin/Globulin Ratio 10/06/16 10/06/16 10/06/16 04:50 04:50 07:22 WBC 7.6 RBC 3.33 L Hgb 10.1 L Hct 29.9 L MCV 89.8 MCH 30 MCHC 33.8 RDW 14.6 Plt Count 49 L MPV 11.0 Neut % (Auto) 75.5 H Lymph % (Auto) 11.0 L [place] % (Auto) 11.8 Eos % (Auto) 1.3 Baso % (Auto) 0.1 Neut # (Auto) 5.8 Lymph # (Auto) 0.8 L [place] # (Auto) 0.9 H Eos # (Auto) 0.1 Baso # (Auto) 0.0 Total Counted 100 Immature Gran % 0.3 Nucleated RBC % 0.0 Immature Gran # 0.02 Segmented Neutrophils 84 Band Neutrophils 2 Lymphocytes 8 L Monocytes 1 L Eosinophils 1 Myelocytes 4 Nucleated RBCs # 0.00 Platelet Estimate Decreased Anisocytosis 1+ Sodium 140 Potassium 4.2 Chloride 101 Carbon Dioxide 33 H Anion Gap 10.2 BUN 49 H Creatinine 1.80 H GFR Calculation 37 BUN/Creatinine Ratio 27.00 H Glucose 157 H POC Glucose 169 H Calculated Osmolality 294.4 Calcium 8.4 L Magnesium 2.4 Total Bilirubin 1.60 H Direct Bilirubin 0.50 H Indirect Bilirubin 1.1 H AST 27 ALT 27 Alkaline Phosphatase 80 Total Creatine Kinase 45 D CK-MB (CK-2) 2.3 Troponin I 1.160 H D Total Protein 4.8 L Albumin 2.3 L Globulin 2.5 Albumin/Globulin Ratio 0.9 L - EKG EKG results: interpreted by me, sinus rhythm Quality Measures - VTE Contraindication to Pharmacological VTE Prophylaxis: High Risk of Bleeding - Stroke Onset of Symptoms Date: 09/05/16 Onset of Symptoms Time: 15:30 Symptom Onset Unknown: No Specialty Discharge - Follow Up or Referrals <Mariel Lloyd - Last Filed: 10/06/16 12:47> Assessment and Plan (1) Hypertension Status: Chronic Current Visit: Yes Qualifiers: Hypertension type: essential hypertension Qualified Code(s): I10 - Essential (primary) hypertension (2) Pulmonary hypertension Status: Chronic Current Visit: Yes (3) TIA (transient ischemic attack) Status: Acute Current Visit: Yes (4) Unsteady gait Status: Chronic Current Visit: Yes (5) Coronary artery disease Status: Chronic Current Visit: Yes Qualifiers: Coronary Disease-Associated Artery/Lesion type: [place] artery [place] vs. transplanted heart: [place] heart Associated angina: without angina Qualified Code(s): I25.10 - Atherosclerotic heart disease of [place] coronary artery without angina pectoris (6) Diabetes mellitus Status: Chronic Current Visit: Yes Qualifiers: Diabetes mellitus type: type 2 Chronic kidney disease stage: stage 3 ( moderate) (7) Tissue aortic valve replacement during current hospitalization Status: Acute Current Visit: Yes (8) Chronic kidney disease Status: Chronic Current Visit: Yes Qualifiers: Chronic kidney disease stage: stage 3 (moderate) Qualified Code(s): N18.3 - Chronic kidney disease, stage 3 (moderate) Exam (Progress Note) - Constitutional Vitals: Period Temp Pulse Resp BP Sys/[place] Pulse Ox Last 24 Hr 97.7 F-98.9 F 73-87 16-22 96-137/53-76 91-100 Result/EKG - Labs CBC & BMP: 10/06/16 04:50 10/06/16 04:50 Labs: Laboratory Results - last 24 hr 10/05/16 10/05/16 10/06/16 16:14 20:39 04:50 WBC 7.6 RBC 3.33 L Hgb 10.1 L Hct 29.9 L MCV 89.8 MCH 30 MCHC 33.8 RDW 14.6 Plt Count 49 L MPV 11.0 Neut % (Auto) 75.5 H Lymph % (Auto) 11.0 L [place] % (Auto) 11.8 Eos % (Auto) 1.3 Baso % (Auto) 0.1 Neut # (Auto) 5.8 Lymph # (Auto) 0.8 L [place] # (Auto) 0.9 H Eos # (Auto) 0.1 Baso # (Auto) 0.0 Total Counted 100 Immature Gran % 0.3 Nucleated RBC % 0.0 Immature Gran # 0.02 Segmented Neutrophils 84 Band Neutrophils 2 Lymphocytes 8 L Monocytes 1 L Eosinophils 1 Myelocytes 4 Nucleated RBCs # 0.00 Platelet Estimate Decreased Anisocytosis 1+ Sodium Potassium Chloride Carbon Dioxide Anion Gap BUN Creatinine GFR Calculation BUN/Creatinine Ratio Glucose POC Glucose 123 H 218 H Calculated Osmolality Calcium Magnesium Total Bilirubin Direct Bilirubin Indirect Bilirubin AST ALT Alkaline Phosphatase Total Creatine Kinase CK-MB (CK-2) Troponin I Total Protein Albumin Globulin Albumin/Globulin Ratio 10/06/16 10/06/16 10/06/16 04:50 07:22 11:09 WBC RBC Hgb Hct MCV MCH MCHC RDW Plt Count MPV Neut % (Auto) Lymph % (Auto) [place] % (Auto) Eos % (Auto) Baso % (Auto) Neut # (Auto) Lymph # (Auto) [place] # (Auto) Eos # (Auto) Baso # (Auto) Total Counted Immature Gran % Nucleated RBC % Immature Gran # Segmented Neutrophils Band Neutrophils Lymphocytes Monocytes Eosinophils Myelocytes Nucleated RBCs # Platelet Estimate Anisocytosis Sodium 140 Potassium 4.2 Chloride 101 Carbon Dioxide 33 H Anion Gap 10.2 BUN 49 H Creatinine 1.80 H GFR Calculation 37 BUN/Creatinine Ratio 27.00 H Glucose 157 H POC Glucose 169 H 300 H Calculated Osmolality 294.4 Calcium 8.4 L Magnesium 2.4 Total Bilirubin 1.60 H Direct Bilirubin 0.50 H Indirect Bilirubin 1.1 H AST 27 ALT 27 Alkaline Phosphatase 80 Total Creatine Kinase 45 D CK-MB (CK-2) 2.3 Troponin I 1.160 H D Total Protein 4.8 L Albumin 2.3 L Globulin 2.5 Albumin/Globulin Ratio 0.9 L
--- NOTE | 2016-10-06 10:46 | Cardiothoracic Progress Note ---
Cardiothoracic Subjective Interval history: Patient is doing well. Vital signs are stable and is breathing comfortably. His renal function is gradually returning to his baseline level. Overall his progress is satisfactory. We will continue to increase his activities as tolerated. Exam (Progress Note) - Constitutional Vitals: Period Temp Pulse Resp BP Sys/[place] Pulse Ox Last 24 Hr 96.7 F-98.9 F 73-94 16-22 114-137/53-76 95-100 Result/EKG - Labs CBC & BMP: 10/06/16 04:50 10/06/16 04:50 Labs: Laboratory Results - last 24 hr 10/05/16 10/05/16 10/05/16 11:19 16:14 20:39 WBC RBC Hgb Hct MCV MCH MCHC RDW Plt Count MPV Neut % (Auto) Lymph % (Auto) [place] % (Auto) Eos % (Auto) Baso % (Auto) Neut # (Auto) Lymph # (Auto) [place] # (Auto) Eos # (Auto) Baso # (Auto) Total Counted Immature Gran % Nucleated RBC % Immature Gran # Segmented Neutrophils Band Neutrophils Lymphocytes Monocytes Eosinophils Myelocytes Nucleated RBCs # Platelet Estimate Anisocytosis Sodium Potassium Chloride Carbon Dioxide Anion Gap BUN Creatinine GFR Calculation BUN/Creatinine Ratio Glucose POC Glucose 201 H 123 H 218 H Calculated Osmolality Calcium Magnesium Total Bilirubin Direct Bilirubin Indirect Bilirubin AST ALT Alkaline Phosphatase Total Creatine Kinase CK-MB (CK-2) Troponin I Total Protein Albumin Globulin Albumin/Globulin Ratio 10/06/16 10/06/16 10/06/16 04:50 04:50 07:22 WBC 7.6 RBC 3.33 L Hgb 10.1 L Hct 29.9 L MCV 89.8 MCH 30 MCHC 33.8 RDW 14.6 Plt Count 49 L MPV 11.0 Neut % (Auto) 75.5 H Lymph % (Auto) 11.0 L [place] % (Auto) 11.8 Eos % (Auto) 1.3 Baso % (Auto) 0.1 Neut # (Auto) 5.8 Lymph # (Auto) 0.8 L [place] # (Auto) 0.9 H Eos # (Auto) 0.1 Baso # (Auto) 0.0 Total Counted 100 Immature Gran % 0.3 Nucleated RBC % 0.0 Immature Gran # 0.02 Segmented Neutrophils 84 Band Neutrophils 2 Lymphocytes 8 L Monocytes 1 L Eosinophils 1 Myelocytes 4 Nucleated RBCs # 0.00 Platelet Estimate Decreased Anisocytosis 1+ Sodium 140 Potassium 4.2 Chloride 101 Carbon Dioxide 33 H Anion Gap 10.2 BUN 49 H Creatinine 1.80 H GFR Calculation 37 BUN/Creatinine Ratio 27.00 H Glucose 157 H POC Glucose 169 H Calculated Osmolality 294.4 Calcium 8.4 L Magnesium 2.4 Total Bilirubin 1.60 H Direct Bilirubin 0.50 H Indirect Bilirubin 1.1 H AST 27 ALT 27 Alkaline Phosphatase 80 Total Creatine Kinase 45 D CK-MB (CK-2) 2.3 Troponin I 1.160 H D Total Protein 4.8 L Albumin 2.3 L Globulin 2.5 Albumin/Globulin Ratio 0.9 L Quality Measures - VTE Contraindication to Pharmacological VTE Prophylaxis: High Risk of Bleeding - Stroke Onset of Symptoms Date: 09/05/16 Onset of Symptoms Time: 15:30 Symptom Onset Unknown: No Specialty Discharge - Follow Up or Referrals
--- NOTE | 2016-10-06 12:47 | Nephrology Progress Note ---
Nephrology - PN: Subj Interval history: He is awake and alert. He denies shortness of breath. Exam (PN)-Nephrology - Vital Signs Vital signs: Period Temp Pulse Resp BP Sys/[place] Pulse Ox Last 24 Hr 97.7 F-98.9 F 73-87 16-22 96-137/53-76 91-100 Exam: ENT: Normal Cardiovascular: Regular rate and rhythm. No murmur rub or gallop Lungs: Clear Extremities: 1+ edema - Lab 10/06/16 04:50 10/06/16 04:50 Most recent lab results ABG pH 7.393 (7.35-7.45) 10/03/16 11:33 ABG pCO2 45.9 MM HG (35-48) 10/03/16 11:33 ABG pO2 145.2 MM HG (80-95) H 10/03/16 11:33 ABG HCO3 27.3 MMOL/L (20-26) H 10/03/16 11:33 ABG O2 Saturation 98.5 % (95-100) 10/03/16 11:33 Calcium 8.4 MG/DL (8.5-10.1) L 10/06/16 04:50 Magnesium 2.4 MG/DL (1.8-2.4) 10/06/16 04:50 Assessment and Plan (1) Acute on chronic renal failure Status: Acute Assessment and plan: 86-year-old man with: * CRF stage III. Renal function stable. Fluid balance negative. Can likely change to p.o. diuretics soon * Aortic stenosis. Status post valve replacement * CAD. * Diabetes mellitus * Hypertension Current Visit: Yes (2) Near syncope Status: Acute Current Visit: Yes (3) Pleural effusion Status: Acute Current Visit: Yes (4) Coronary artery disease Status: Chronic Current Visit: Yes Qualifiers: Qualified Code(s): I25.10 - Atherosclerotic heart disease of [place] coronary artery without angina pectoris (5) Diabetes mellitus Status: Chronic Current Visit: Yes (6) Hypertension Status: Chronic Current Visit: Yes Qualifiers: Qualified Code(s): I10 - Essential (primary) hypertension (7) Severe aortic stenosis Status: Chronic Current Visit: Yes (8) Bradycardia Status: Resolved Current Visit: Yes Specialty Discharge - Follow Up or Referrals
[2016-10-06] MEDS: ATORVASTATIN 80 MG TABLET PO SCH (21:12)
[2016-10-07] MEDS: IPRATROPIUM 500 MCG/2.5 ML NEB RESP TX SCH ×4 (00:49→19:21)
[2016-10-07] MEDS: INSULIN REGULAR 100 UNIT/ML SUBCUT SCH ×4 (08:21→20:40)
[2016-10-07] MEDS: FERROUS SULFATE 325 MG TABLET PO SCH (08:21)
[2016-10-07] MEDS: FUROSEMIDE 40 MG/4 ML VIAL IV SCH (08:22)
[2016-10-07] MEDS: METOPROLOL TARTRATE 25 MG TABLET PO SCH ×2 (08:22→20:39)
[2016-10-07] MEDS: DOCUSATE SODIUM 100 MG CAPSULE PO SCH (08:22)
[2016-10-07] MEDS: ASPIRIN EC 325 MG TABLET PO SCH (08:22)
[2016-10-07] MEDS: APIXABAN 2.5 MG TABLET PO SCH ×2 (08:22→20:39)
[2016-10-07] MEDS: AMIODARONE 200 MG TABLET PO SCH ×2 (08:22→20:40)
[2016-10-07] MEDS: DESITIN 4OZ/NYSTATIN 15 GRAM MIXTURE PASTE TOP SCH ×2 (08:43→20:43)
[2016-10-07] MEDS: PANTOPRAZOLE 40 MG TABLET PO SCH (08:43)
[2016-10-07] MEDS: CHLORHEXIDINE 0.12% ORAL RINSE 60 ML BOTTLE SWISH/SPIT SCH ×2 (08:43→20:43)
--- NOTE | 2016-10-07 08:55 | Cardiothoracic Progress Note ---
Cardiothoracic Subjective Interval history: Patient looks and feels comfortable. Vital signs have been stable and he continues to have no trouble breathing. He is beginning to ambulate with minimal assistance. We will gradually increase his activity with a goal of possible discharge on Sunday. I think that he will need home health assistance probably for at least a couple of weeks. Exam (Progress Note) - Constitutional Vitals: Period Temp Pulse Resp BP Sys/[place] Pulse Ox Last 24 Hr 97.1 F-98.7 F 73-85 16-20 96-113/48-58 91-98 Result/EKG - Labs CBC & BMP: 10/06/16 04:50 10/06/16 04:50 Labs: Laboratory Results - last 24 hr 10/06/16 10/06/16 10/06/16 11:09 16:46 19:37 POC Glucose 300 H 237 H 247 H 10/07/16 07:14 POC Glucose 106 Quality Measures - VTE Contraindication to Pharmacological VTE Prophylaxis: High Risk of Bleeding - Stroke Onset of Symptoms Date: 09/05/16 Onset of Symptoms Time: 15:30 Symptom Onset Unknown: No Specialty Discharge - Follow Up or Referrals
--- NOTE | 2016-10-07 09:50 | Cardiology Progress Note ---
Assessment and Plan (1) Hypertension Status: Chronic Current Visit: Yes Qualifiers: Hypertension type: essential hypertension Qualified Code(s): I10 - Essential (primary) hypertension (2) Pulmonary hypertension Status: Chronic Current Visit: Yes (3) TIA (transient ischemic attack) Status: Acute Current Visit: Yes (4) Unsteady gait Status: Chronic Current Visit: Yes (5) Coronary artery disease Status: Chronic Assessment and plan: Adequately revascularized except for the ostial vein graft to the first obtuse marginal which now has a nice vein graft pericardial patch Current Visit: Yes Qualifiers: Coronary Disease-Associated Artery/Lesion type: [place] artery [place] vs. transplanted heart: [place] heart Associated angina: without angina Qualified Code(s): I25.10 - Atherosclerotic heart disease of [place] coronary artery without angina pectoris (6) Diabetes mellitus Status: Chronic Current Visit: Yes Qualifiers: Diabetes mellitus type: type 2 Chronic kidney disease stage: stage 3 ( moderate) (7) Tissue aortic valve replacement during current hospitalization Status: Acute Current Visit: Yes (8) Chronic kidney disease Status: Chronic Current Visit: Yes Qualifiers: Chronic kidney disease stage: stage 3 (moderate) Qualified Code(s): N18.3 - Chronic kidney disease, stage 3 (moderate) Cardiology - PN: Subj Interval history: No complaints and he is progressing slowly but steady. Up and ambulating more. No SOB or chest pain. His creatinine is better as well. Exam (Progress Note) - Constitutional Vitals: Period Temp Pulse Resp BP Sys/[place] Pulse Ox Last 24 Hr 97.1 F-98.7 F 73-85 16-20 96-113/48-58 91-98 General appearance: normal weight - Eye Eye exam: Present: EOMI Pupils: Present: FAT[place] - Neck Neck exam: Present: normal inspection - Respiratory Respiratory exam: Present: clear to auscultation bilaterally - Cardiovascular Cardiovascular exam: Present: regular rate and rhythm - GI/Abdominal GI/Abdominal exam: Present: normal bowel sounds Result/EKG - Labs CBC & BMP: 10/06/16 04:50 10/06/16 04:50 Labs: Laboratory Results - last 24 hr 10/06/16 10/06/16 10/06/16 11:09 16:46 19:37 POC Glucose 300 H 237 H 247 H 10/07/16 07:14 POC Glucose 106 Quality Measures - VTE Contraindication to Pharmacological VTE Prophylaxis: High Risk of Bleeding - Stroke Onset of Symptoms Date: 09/05/16 Onset of Symptoms Time: 15:30 Symptom Onset Unknown: No Specialty Discharge - Follow Up or Referrals
--- NOTE | 2016-10-07 10:42 | Pulmonology Progress Note ---
Pulmonary - PN: Subj Interval history: The patient is an 86-year-old white man that had an aortic valve replacement and CABG. He has had some problems with shortness of breath and heart failure but is doing better now. He says he starting to walk some and feels like his breathing is better. He has been on low-flow oxygen and his O2 saturations are okay. He is not coughing up much now. Overall he feels like he is getting much better. Exam (Progress Note) - Constitutional Vitals: Period Temp Pulse Resp BP Sys/[place] Pulse Ox Last 24 Hr 97.1 F-98.7 F 73-85 16-20 96-113/48-58 91-98 General appearance: normal weight, no acute distress (He looks comfortable lying in bed.) - Head Head exam: Present: normal inspection, normocephalic - Eye Eye exam: Present: EOMI. Absent: scleral icterus Pupils: Present: FAT[place]MATA - ENT ENT exam: Present: normal exam - Neck Neck exam: Present: normal inspection. Absent: lymphadenopathy, thyromegaly - Respiratory Respiratory exam: Present: rales (He has some slight crackles in the bases. He does have coarse breath sounds). Absent: accessory muscle use, wheezes - Cardiovascular Cardiovascular exam: Present: regular rate and rhythm, systolic murmur (He has a very faint murmur.). Absent: gallop, JVD - GI/Abdominal GI/Abdominal exam: Present: normal bowel sounds, soft. Absent: organomegaly, tenderness - Extremities Exam Extremities exam: Absent: calf tenderness, edema - Neurological Exam Neurological exam: Present: alert, oriented X3, CN II-XII intact - Psychiatric Psychiatric exam: Present: normal affect - Skin Skin exam: Present: warm, dry Results - Labs CBC & BMP: 10/06/16 04:50 10/06/16 04:50 Assessment and Plan (1) Acute on chronic renal failure Status: Acute Assessment and plan: The patient's creatinine is 1.8 at present and stable Current Visit: Yes (2) Severe aortic stenosis Status: Chronic Assessment and plan: The patient had a syncopal event and came in with heart failure and has severe aortic stenosis. Now he status post valve replacement. Current Visit: Yes (3) Pleural effusion Status: Acute Assessment and plan: The patient only has minimal pleural effusion now. Current Visit: Yes (4) CAD (coronary artery disease) Status: Acute Assessment and plan: The patient had coronary artery disease and had bypass surgery Current Visit: Yes (5) Tissue aortic valve replacement during current hospitalization Status: Acute Assessment and plan: Patient is post valve replacement and doing reasonably well at present Current Visit: Yes Specialty Discharge - Follow Up or Referrals
--- NOTE | 2016-10-07 11:34 | Nephrology Progress Note ---
Nephrology - PN: Subj Interval history: No S OB or chest pain Exam (PN)-Nephrology - Vital Signs Vital signs: Period Temp Pulse Resp BP Sys/[place] Pulse Ox Last 24 Hr 97.1 F-98.6 F 73-85 16-20 108-134/48-62 94-98 Exam: ENT: Normal Cardiovascular: Regular rate and rhythm. No murmur rub or gallop Lungs: Clear Extremities: 1+ edema - Lab 10/06/16 04:50 10/06/16 04:50 Most recent lab results ABG pH 7.393 (7.35-7.45) 10/03/16 11:33 ABG pCO2 45.9 MM HG (35-48) 10/03/16 11:33 ABG pO2 145.2 MM HG (80-95) H 10/03/16 11:33 ABG HCO3 27.3 MMOL/L (20-26) H 10/03/16 11:33 ABG O2 Saturation 98.5 % (95-100) 10/03/16 11:33 Calcium 8.4 MG/DL (8.5-10.1) L 10/06/16 04:50 Magnesium 2.4 MG/DL (1.8-2.4) 10/06/16 04:50 Assessment and Plan (1) Acute on chronic renal failure Status: Acute Assessment and plan: 86-year-old man with: * CRF stage III. Renal function stable. Change Lasix to p.o. * Aortic stenosis. Status post valve replacement * CAD. * Diabetes mellitus * Hypertension Current Visit: Yes (2) Near syncope Status: Acute Current Visit: Yes (3) Pleural effusion Status: Acute Current Visit: Yes (4) Coronary artery disease Status: Chronic Current Visit: Yes Qualifiers: Coronary Disease-Associated Artery/Lesion type: [place] artery [place] vs. transplanted heart: [place] heart Associated angina: without angina Qualified Code(s): I25.10 - Atherosclerotic heart disease of [place] coronary artery without angina pectoris (5) Diabetes mellitus Status: Chronic Current Visit: Yes Qualifiers: Diabetes mellitus type: type 2 Chronic kidney disease stage: stage 3 ( moderate) (6) Hypertension Status: Chronic Current Visit: Yes Qualifiers: Hypertension type: essential hypertension Qualified Code(s): I10 - Essential (primary) hypertension (7) Severe aortic stenosis Status: Chronic Current Visit: Yes (8) Bradycardia Status: Resolved Current Visit: Yes Specialty Discharge - Follow Up or Referrals
[2016-10-07] MEDS: FUROSEMIDE 40 MG TABLET PO SCH (16:17)
[2016-10-07] MEDS: ATORVASTATIN 80 MG TABLET PO SCH (20:40)
[2016-10-08] MEDS: IPRATROPIUM 500 MCG/2.5 ML NEB RESP TX SCH ×4 (01:26→20:51)
[2016-10-08 03:33] LABS: Basophils % 0.1 % (0.0-0.8); Eosinophils # 0.1 10*3/uL (0.0-0.87); Hematocrit 26.3 VOL% (42.0-52.0); Hemoglobin 8.7 GM/DL (14.0-18.0); Immature Granulocytes % 0.7 %; Immature Granulocytes Absolute 0.05 #; Lymphocytes # 0.9 10*3/uL (1.4-4.0); Mean Corpuscular HGB Conc 33.1 GM/DL (32-36); Mean Corpuscular Hemoglobin 30 PG (27-34); Mean Corpuscular Volume 90.7 FL (87-102); Monocytes % 13.7 % (1.7-12.7); Neutrophils # 5.1 10*3/uL (1.4-7.4); Neutrophils % 72.5 % (38.7-73.9); Platelet Count 58 T/CUMM (130-400); Red Cell Distribution Width 14.8 % (9.3-17.3); White Blood Count 7.1 T/CUMM (4-12)
[2016-10-08 04:16] LABS: Alanine Aminotransferase 26 U/L (16-61); Albumin 2.3 G/DL (3.4-5.0); Alkaline Phosphatase 90 U/L (45-117); Aspartate Amino Transferase 24 U/L (0-37); Bilirubin,Indirect 0.8 MG/DL (0.0-1.0); Blood Urea Nitrogen 71 MG/DL (7-18); Glucose 175 MG/DL (74-106); Magnesium 2.4 MG/DL (1.8-2.4); Osmolality,Calculated 297.8 MOS/KG (273-304); Potassium 4.1 MMOL/L (3.5-5.1); Sodium 137 MMOL/L (136-145); Total Protein 4.9 G/DL (6.4-8.3)
[2016-10-08 04:16] LABS: Anisocytosis 1+; Band Neutrophils 2 % (0-10); Eosinophils 1 % (0-10); Hypochromasia 1+; Lymphocytes 7 % (20-55); Myelocytes 5 %; Platelet Estimate Decreased; Segmented Neutrophils 83 % (50-85); Total Cells Counted 100
--- NOTE | 2016-10-08 08:12 | Cardiothoracic Progress Note ---
Cardiothoracic Subjective Interval history: Patient looks and feels okay this morning. He did have one episode of shortness of breath while walking yesterday but seems better this morning. I am not sure that he is going to be able to go directly home I think he probably will need swing bed care for at least a week or 2. I think he is slowly coming around to this conclusion but he probably needs another day or 2 here in the hospital anyway. Plan to continue present therapy for now. Exam (Progress Note) - Constitutional Vitals: Period Temp Pulse Resp BP Sys/[place] Pulse Ox Last 24 Hr 98 F-98.6 F 70-90 18-20 106-134/53-62 90-982 Result/EKG - Labs CBC & BMP: 10/08/16 03:00 10/08/16 03:11 Labs: Laboratory Results - last 24 hr 10/07/16 10/07/16 10/07/16 11:18 15:44 19:50 WBC RBC Hgb Hct MCV MCH MCHC RDW Plt Count MPV Neut % (Auto) Lymph % (Auto) [place] % (Auto) Eos % (Auto) Baso % (Auto) Neut # (Auto) Lymph # (Auto) [place] # (Auto) Eos # (Auto) Baso # (Auto) Total Counted Immature Gran % Nucleated RBC % Immature Gran # Segmented Neutrophils Band Neutrophils Lymphocytes Monocytes Eosinophils Myelocytes Nucleated RBCs # Platelet Estimate Hypochromasia Anisocytosis Sodium Potassium Chloride Carbon Dioxide Anion Gap BUN Creatinine GFR Calculation BUN/Creatinine Ratio Glucose POC Glucose 236 H 219 H 309 H Calculated Osmolality Calcium Magnesium Total Bilirubin Direct Bilirubin Indirect Bilirubin AST ALT Alkaline Phosphatase Total Creatine Kinase CK-MB (CK-2) Troponin I Total Protein Albumin Globulin Albumin/Globulin Ratio 10/08/16 10/08/16 10/08/16 03:00 03:11 07:21 WBC 7.1 RBC 2.90 L Hgb 8.7 L Hct 26.3 L MCV 90.7 MCH 30 MCHC 33.1 RDW 14.8 Plt Count 58 L MPV 11.0 Neut % (Auto) 72.5 Lymph % (Auto) 12.0 L [place] % (Auto) 13.7 H Eos % (Auto) 1.0 Baso % (Auto) 0.1 Neut # (Auto) 5.1 Lymph # (Auto) 0.9 L [place] # (Auto) 1.0 H Eos # (Auto) 0.1 Baso # (Auto) 0.0 Total Counted 100 Immature Gran % 0.7 Nucleated RBC % 0.0 Immature Gran # 0.05 Segmented Neutrophils 83 Band Neutrophils 2 Lymphocytes 7 L Monocytes 2 Eosinophils 1 Myelocytes 5 Nucleated RBCs # 0.00 Platelet Estimate Decreased Hypochromasia 1+ Anisocytosis 1+ Sodium 137 Potassium 4.1 Chloride 98 Carbon Dioxide 32 Anion Gap 11.1 BUN 71 H Creatinine 2.20 H GFR Calculation 29 BUN/Creatinine Ratio 32.00 H Glucose 175 H POC Glucose 189 H Calculated Osmolality 297.8 Calcium 8.0 L Magnesium 2.4 Total Bilirubin 1.30 H Direct Bilirubin 0.50 H Indirect Bilirubin 0.8 AST 24 ALT 26 Alkaline Phosphatase 90 Total Creatine Kinase 29 L D CK-MB (CK-2) 1.1 Troponin I 0.780 H D Total Protein 4.9 L Albumin 2.3 L Globulin 2.6 Albumin/Globulin Ratio 0.8 L Quality Measures - VTE Contraindication to Pharmacological VTE Prophylaxis: High Risk of Bleeding - Stroke Onset of Symptoms Date: 09/05/16 Onset of Symptoms Time: 15:30 Symptom Onset Unknown: No Specialty Discharge - Follow Up or Referrals
--- NOTE | 2016-10-08 09:16 | Pulmonology Progress Note ---
Pulmonary - PN: Subj Interval history: The patient is an 86-year-old white man that had an aortic valve replacement and CABG. He has had some problems with shortness of breath and heart failure but is doing better now. He said he had a fairly good night and his breathing is better. He said he did fatigue quite easily trying to walk some. He is not coughing much and his shortness of breath is better. Overall he feels stronger. He will need some physical therapy. Exam (Progress Note) - Constitutional Vitals: Period Temp Pulse Resp BP Sys/[place] Pulse Ox Last 24 Hr 98 F-98.6 F 70-90 18-20 106-134/53-62 90-982 Exam: General appearance: normal weight, no acute distress (He looks comfortable and alert sitting up eating breakfast.) - Head Head exam: Present: normal inspection, normocephalic - Eye Eye exam: Present: EOMI. Absent: scleral icterus Pupils: Present: [place] - ENT ENT exam: Present: normal exam - Neck Neck exam: Present: normal inspection. Absent: lymphadenopathy, thyromegaly - Respiratory Respiratory exam: He has slightly diminished breath sounds on the right compared to the left. He is moving air well without any wheezing and minimal crackles. - Cardiovascular Cardiovascular exam: Present: regular rate and rhythm, systolic murmur (He has a very faint murmur.). Absent: gallop, JVD - GI/Abdominal GI/Abdominal exam: Present: normal bowel sounds, soft. Absent: organomegaly, tenderness - Extremities Exam Extremities exam: His legs are nontender and he does have slight edema. - Neurological Exam Neurological exam: Present: alert, oriented X3, CN II-XII intact, he has no focal deficits. - Psychiatric Psychiatric exam: Present: normal affect - Skin Skin exam: Present: warm, dry Results - Labs CBC & BMP: 10/08/16 03:00 10/08/16 03:11 - Diagnostic Findings Procedure: Chest x-ray: image reviewed by me, report reviewed by me (Chest x- ray looks better. There is some right pleural thickening but the lung don look better.) Assessment and Plan (1) Acute on chronic renal failure Status: Acute Assessment and plan: The patient's creatinine is 2.2 at present and stable Current Visit: Yes (2) Severe aortic stenosis Status: Chronic Assessment and plan: The patient had a syncopal event and came in with heart failure and has severe aortic stenosis. Now he status post valve replacement. He continues to improve postop. Current Visit: Yes (3) Pleural effusion Status: Acute Assessment and plan: The patient only has minimal pleural effusion now. Current Visit: Yes (4) CAD (coronary artery disease) Status: Acute Assessment and plan: The patient had coronary artery disease and had bypass surgery. He continues to do well postop. Current Visit: Yes (5) Tissue aortic valve replacement during current hospitalization Status: Acute Assessment and plan: Patient is post valve replacement and doing reasonably well at present. He gives out very easily and will need physical therapy and rehab. Current Visit: Yes Specialty Discharge - Follow Up or Referrals
[2016-10-08] MEDS: AMIODARONE 200 MG TABLET PO SCH ×2 (09:40→20:56)
[2016-10-08] MEDS: INSULIN REGULAR 100 UNIT/ML SUBCUT SCH ×4 (09:40→20:51)
[2016-10-08] MEDS: METOPROLOL TARTRATE 25 MG TABLET PO SCH ×2 (09:40→20:52)
[2016-10-08] MEDS: PANTOPRAZOLE 40 MG TABLET PO SCH (09:40)
[2016-10-08] MEDS: FERROUS SULFATE 325 MG TABLET PO SCH (09:40)
[2016-10-08] MEDS: FUROSEMIDE 40 MG TABLET PO SCH ×2 (09:40→17:00)
[2016-10-08] MEDS: APIXABAN 2.5 MG TABLET PO SCH ×2 (09:40→20:51)
[2016-10-08] MEDS: ASPIRIN EC 325 MG TABLET PO SCH (09:40)
[2016-10-08] MEDS: DOCUSATE SODIUM 100 MG CAPSULE PO SCH (09:40)
[2016-10-08] MEDS: DESITIN 4OZ/NYSTATIN 15 GRAM MIXTURE PASTE TOP SCH ×2 (09:41→20:55)
[2016-10-08] MEDS: CHLORHEXIDINE 0.12% ORAL RINSE 60 ML BOTTLE SWISH/SPIT SCH ×2 (09:41→20:55)
--- NOTE | 2016-10-08 09:58 | Cardiology Progress Note ---
Assessment and Plan - Time spent with patient Time spent with patient: Less than 30 minutes (1) Hypertension Status: Chronic Current Visit: Yes Qualifiers: Hypertension type: essential hypertension Qualified Code(s): I10 - Essential (primary) hypertension (2) Pulmonary hypertension Status: Chronic Assessment and plan: This is better postop Current Visit: Yes (3) TIA (transient ischemic attack) Status: Acute Current Visit: Yes (4) Unsteady gait Status: Chronic Assessment and plan: As per HPI he needs rehabilitation. Current Visit: Yes (5) Coronary artery disease Status: Chronic Assessment and plan: Adequately revascularized except for the ostial vein graft to the first obtuse marginal which now has a nice vein graft pericardial patch Current Visit: Yes Qualifiers: Coronary Disease-Associated Artery/Lesion type: [place] artery [place] vs. transplanted heart: [place] heart Associated angina: without angina Qualified Code(s): I25.10 - Atherosclerotic heart disease of [place] coronary artery without angina pectoris (6) Diabetes mellitus Status: Chronic Current Visit: Yes Qualifiers: Diabetes mellitus type: type 2 Chronic kidney disease stage: stage 3 ( moderate) (7) Tissue aortic valve replacement during current hospitalization Status: Acute Current Visit: Yes (8) Chronic kidney disease Status: Chronic Current Visit: Yes Qualifiers: Chronic kidney disease stage: stage 3 (moderate) Qualified Code(s): N18.3 - Chronic kidney disease, stage 3 (moderate) Cardiology - PN: Subj Interval history: Patient states that he got up and walked with his nephew yesterday and he realizes he is not ready to take care of himself independently. I think he is correct he would likely need some sort of rehab before returning to independent living. He denies anything except weakness fatigue and dyspnea. Exam (Progress Note) - Constitutional Vitals: Period Temp Pulse Resp BP Sys/[place] Pulse Ox Last 24 Hr 98 F-98.6 F 70-90 18-20 106-134/53-62 90-982 General appearance: normal weight - Eye Eye exam: Present: EOMI - Respiratory Respiratory exam: Present: wheezes (Very few wheezes) - Cardiovascular Cardiovascular exam: Present: regular rate and rhythm (No significant murmur, no rub) - GI/Abdominal GI/Abdominal exam: Present: normal bowel sounds - Extremities Exam Extremities exam: Absent: edema - Neurological Exam Neurological exam: Present: alert, oriented X3 - Psychiatric Psychiatric exam: Present: normal affect, depressed Result/EKG - Labs CBC & BMP: 10/08/16 03:00 10/08/16 03:11 Labs: Laboratory Results - last 24 hr 10/07/16 10/07/16 10/07/16 11:18 15:44 19:50 WBC RBC Hgb Hct MCV MCH MCHC RDW Plt Count MPV Neut % (Auto) Lymph % (Auto) [place] % (Auto) Eos % (Auto) Baso % (Auto) Neut # (Auto) Lymph # (Auto) [place] # (Auto) Eos # (Auto) Baso # (Auto) Total Counted Immature Gran % Nucleated RBC % Immature Gran # Segmented Neutrophils Band Neutrophils Lymphocytes Monocytes Eosinophils Myelocytes Nucleated RBCs # Platelet Estimate Hypochromasia Anisocytosis Sodium Potassium Chloride Carbon Dioxide Anion Gap BUN Creatinine GFR Calculation BUN/Creatinine Ratio Glucose POC Glucose 236 H 219 H 309 H Calculated Osmolality Calcium Magnesium Total Bilirubin Direct Bilirubin Indirect Bilirubin AST ALT Alkaline Phosphatase Total Creatine Kinase CK-MB (CK-2) Troponin I Total Protein Albumin Globulin Albumin/Globulin Ratio 10/08/16 10/08/16 10/08/16 03:00 03:11 07:21 WBC 7.1 RBC 2.90 L Hgb 8.7 L Hct 26.3 L MCV 90.7 MCH 30 MCHC 33.1 RDW 14.8 Plt Count 58 L MPV 11.0 Neut % (Auto) 72.5 Lymph % (Auto) 12.0 L [place] % (Auto) 13.7 H Eos % (Auto) 1.0 Baso % (Auto) 0.1 Neut # (Auto) 5.1 Lymph # (Auto) 0.9 L [place] # (Auto) 1.0 H Eos # (Auto) 0.1 Baso # (Auto) 0.0 Total Counted 100 Immature Gran % 0.7 Nucleated RBC % 0.0 Immature Gran # 0.05 Segmented Neutrophils 83 Band Neutrophils 2 Lymphocytes 7 L Monocytes 2 Eosinophils 1 Myelocytes 5 Nucleated RBCs # 0.00 Platelet Estimate Decreased Hypochromasia 1+ Anisocytosis 1+ Sodium 137 Potassium 4.1 Chloride 98 Carbon Dioxide 32 Anion Gap 11.1 BUN 71 H Creatinine 2.20 H GFR Calculation 29 BUN/Creatinine Ratio 32.00 H Glucose 175 H POC Glucose 189 H Calculated Osmolality 297.8 Calcium 8.0 L Magnesium 2.4 Total Bilirubin 1.30 H Direct Bilirubin 0.50 H Indirect Bilirubin 0.8 AST 24 ALT 26 Alkaline Phosphatase 90 Total Creatine Kinase 29 L D CK-MB (CK-2) 1.1 Troponin I 0.780 H D Total Protein 4.9 L Albumin 2.3 L Globulin 2.6 Albumin/Globulin Ratio 0.8 L Quality Measures - VTE Contraindication to Pharmacological VTE Prophylaxis: High Risk of Bleeding - Stroke Onset of Symptoms Date: 09/05/16 Onset of Symptoms Time: 15:30 Symptom Onset Unknown: No Specialty Discharge - Follow Up or Referrals
--- NOTE | 2016-10-08 10:28 | XRay Report ---
XR chest 2V Date: 10/08/2016 4:00 AM History: Shortness of breath Comparison: 10/06/2016 Technique: PA and lateral chest Findings: Stable cardiomegaly in patient with prior median sternotomy and cardiac valve replacement. Stable right IJ CVP line. Residual bilateral pleural thickening with findings more pronounced on the right with small pleural effusions. Minimal reduction in the diffuse parenchymal findings in the lungs with stable mediastinum and osseous structures. Impression: Status post median sternotomy and cardiac valve replacement with minimally improved pulmonary edema/atelectasis. Fairly stable bilateral pleural effusions which remain more prominent on the right. PROCEDURE INTERPRETED AT [facility] DEPARTMENT OF RADIOLOGY Final Report Signed by: Dr. Sejal Robles
--- NOTE | 2016-10-08 13:34 | Nephrology Progress Note ---
Nephrology - PN: Subj Interval history: No shortness of breath at rest. No chest pain Exam (PN)-Nephrology - Vital Signs Vital signs: Period Temp Pulse Resp BP Sys/[place] Pulse Ox Last 24 Hr 98 F-98.6 F 70-86 18-20 106-130/53-61 90-100 Exam: ENT: Normal Cardiovascular: Regular rate and rhythm. No murmur rub or gallop Lungs: Clear Extremities: 1+ edema - Lab 10/08/16 03:00 10/08/16 03:11 Most recent lab results ABG pH 7.393 (7.35-7.45) 10/03/16 11:33 ABG pCO2 45.9 MM HG (35-48) 10/03/16 11:33 ABG pO2 145.2 MM HG (80-95) H 10/03/16 11:33 ABG HCO3 27.3 MMOL/L (20-26) H 10/03/16 11:33 ABG O2 Saturation 98.5 % (95-100) 10/03/16 11:33 Calcium 8.0 MG/DL (8.5-10.1) L 10/08/16 03:11 Magnesium 2.4 MG/DL (1.8-2.4) 10/08/16 03:11 Assessment and Plan (1) Acute on chronic renal failure Status: Acute Assessment and plan: 86-year-old man with: * CRF stage III. Creatinine slightly higher. Change Lasix to p.o. * Aortic stenosis. Status post valve replacement * CAD. * Diabetes mellitus * Hypertension Current Visit: Yes (2) Near syncope Status: Acute Current Visit: Yes (3) Pleural effusion Status: Acute Current Visit: Yes (4) Coronary artery disease Status: Chronic Current Visit: Yes Qualifiers: Coronary Disease-Associated Artery/Lesion type: [place] artery [place] vs. transplanted heart: [place] heart Associated angina: without angina Qualified Code(s): I25.10 - Atherosclerotic heart disease of [place] coronary artery without angina pectoris (5) Diabetes mellitus Status: Chronic Current Visit: Yes Qualifiers: Diabetes mellitus type: type 2 Chronic kidney disease stage: stage 3 ( moderate) (6) Hypertension Status: Chronic Current Visit: Yes Qualifiers: Hypertension type: essential hypertension Qualified Code(s): I10 - Essential (primary) hypertension (7) Severe aortic stenosis Status: Chronic Current Visit: Yes (8) Bradycardia Status: Resolved Current Visit: Yes Specialty Discharge - Follow Up or Referrals
[2016-10-08] MEDS: ATORVASTATIN 80 MG TABLET PO SCH (20:51)
[2016-10-09] MEDS: IPRATROPIUM 500 MCG/2.5 ML NEB RESP TX SCH ×4 (00:39→20:31)
[2016-10-09 05:15] LABS: Basophils % 0.1 % (0.0-0.8); Eosinophils # 0.2 10*3/uL (0.0-0.87); Eosinophils % 1.7 % (0.00-10.9); Hematocrit 26.1 VOL% (42.0-52.0); Hemoglobin 8.7 GM/DL (14.0-18.0); Immature Granulocytes % 0.6 %; Immature Granulocytes Absolute 0.05 #; Lymphocytes # 1.1 10*3/uL (1.4-4.0); Lymphocytes % 12.3 % (21.2-54.2); Mean Corpuscular HGB Conc 33.3 GM/DL (32-36); Mean Corpuscular Hemoglobin 30 PG (27-34); Mean Corpuscular Volume 90.9 FL (87-102); Monocytes % 11.8 % (1.7-12.7); Neutrophils # 6.3 10*3/uL (1.4-7.4); Neutrophils % 73.5 % (38.7-73.9); Platelet Count 86 T/CUMM (130-400); Red Blood Count 2.87 MC/CUMM (3.8-5.5); Red Cell Distribution Width 14.9 % (9.3-17.3); White Blood Count 8.6 T/CUMM (4-12)
[2016-10-09 05:48] LABS: Band Neutrophils 3 % (0-10); Eosinophils 2 % (0-10); Lymphocytes 12 % (20-55); Metamyelocytes 1 %; Platelet Estimate Decreased; Segmented Neutrophils 75 % (50-85); Total Cells Counted 100
[2016-10-09 05:56] LABS: Alanine Aminotransferase 29 U/L (16-61); Albumin 2.4 G/DL (3.4-5.0); Alkaline Phosphatase 94 U/L (45-117); Aspartate Amino Transferase 33 U/L (0-37); Bilirubin,Indirect 1.2 MG/DL (0.0-1.0); Blood Urea Nitrogen 69 MG/DL (7-18); Calcium 7.9 MG/DL (8.5-10.1); Glucose 127 MG/DL (74-106); Magnesium 2.7 MG/DL (1.8-2.4); Osmolality,Calculated 296.7 MOS/KG (273-304); Potassium 4.4 MMOL/L (3.5-5.1); Sodium 138 MMOL/L (136-145); Total Protein 5.3 G/DL (6.4-8.3)
[2016-10-09 05:58] LABS: Troponin I Only 0.545 NG/ML (0.00-0.045)
--- NOTE | 2016-10-09 06:48 | EKG Report ---
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
--- NOTE | 2016-10-09 07:47 | Pulmonology Progress Note ---
Pulmonary - PN: Subj Interval history: This 86-year-old white male has congestive heart failure due to aortic stenosis. Also has atherosclerotic heart disease with previous coronary bypass surgery. Needs to have his IV aortic valve replaced. He has a right pleural effusion. His chest x-ray looks a little bit better today as far as the pulmonary edema is concerned. However we gave him Lasix yesterday and his creatinine has risen a little more. I think we would do best to get the right pleural fluid drained in preparation for surgery. Will ask interventional radiology to do this since it appears to be loculated laterally and would be safely done with ultrasound guidance. Patient is not sleeping well. Should tolerate some Ativan at bedtime. Quite anxious. I should note that the reason he has pleural fluid on the right and not the left is that he has had a previous left decortication. 09/18/2016 we have tried to diurese him and it has not been very successful. His creatinine has risen. He had a right thoracentesis with removal of 800 mL of fluid but he had his CT scan yesterday still showed significant right effusion. The pleural fluid is a transudate. Certainly think this is due to congestive heart failure, due to his aortic stenosis. It will be very difficult to treat his heart failure without the valve being replaced. However he is at high risk for surgery given his fragile state and acute kidney injury with Lasix and low cardiac output. Will ask nephrology to see if they can help us with this. Patient at present is about the same as far as her shortness of breath. He is empirically on antibiotics. 09/19/2016 he continues to complain of dyspnea. Primarily says he has trouble breathing through his nose. He is on 2 different nose sprays in his nasal passages appear open on my exam. I think is primarily short of breath related to his congestive heart failure/aortic stenosis. Renal function is a little better. Perhaps getting further out from contrast studies is helping. We do need to try to diurese him further. Nephrology is following as well. 09/20/2016 patient feels a little better sitting up in the chair. However his chest x-ray shows that the right pleural effusion has increased in size. Having a difficult time diuresing him with his creatinine 2.8. Would recommend putting a pleural catheter in the right side to drain this. Hopefully this will help us prep him for possible aortic valve replacement. The pleural effusion is due to congestive heart failure, however they are having a difficult time diuresing him. 09/21/2016 breathing is better since getting the pleural catheter. Chest x-ray today pending. Renal function getting a little better. Hopefully can plan aortic valve surgery soon. 09/22/2016 patient feels a little better. Should be able to tolerate nasal biprong's now. Chest x-ray shows the right pleural effusion has been evacuated. Put out about 200 mL from chest tube since yesterday morning. Need to keep it in for now. Renal function reports are pending from this morning. He does appear to be holding his own layer. Still has some peripheral edema and we need to bump with Lasix again. In my opinion he will need to have aortic valve surgery in order to get back to any meaningful life at home. Otherwise he will be a bed to chair existence. Certainly some risk involved as far as postoperative renal function and/or respiratory failure, but I favor proceeding with surgery next week. 09/23/2016 put out another 400 mL from his chest tube yesterday. Still has peripheral edema. We need to diurese him further. Renal insufficiency makes it difficult. Dr. Mehta wants to do a CT angiogram to further evaluate his aortic arch. His creatinine is down to 2.3. I feel sure further contrast would bump his creatinine up above 3 again and perhaps worse. I do think he would be better off having surgery then not having surgery. I do not think he can go home and come back as he still has a pleural catheter in. We may consider doing a pleurodesis, which is unusual for a transudative type effusion , and only works about half the time in this situation. 09/24/2016 his right pleural catheter came out during the night. Chest x-ray this morning shows the right lung well expanded. He does have some interstitial edema and some interstitial scarring. Creatinine has come down further to 2.1. We need to try to diurese him further. Would not replace the pleural catheter at this point. 09/25/2016 patient needs to be more active. Creatinine is come down to 1.9. Plans are for a CT angiogram of the chest tomorrow. Will need to watch renal function closely after that. Since the CT is planned I will not order chest x- ray 09/26/2016 CT angiogram was canceled because creatinine was up to 2.1. Defer to nephrology, cardiovascular surgery, and radiology on plans there. His chest x- ray shows recurrence of right pleural effusion. Not as much as before but still there. We are trying to diurese him as much as his kidneys will allow. He still has peripheral edema. 09/27/[address] angiogram today. Dr. Mehta to review to decide about surgery. Creatinine was 1.9 this morning. Patient had episode of increased dyspnea last night. Did get better with 1 mg of morphine. If he is to have surgery in the next couple of days, then the right pleural fluid could be drained at that time. If surgery is delayed for several days to follow renal function, then he should have the right pleural catheter replaced. 09/28/2016 patient feels better today. Sleeping better. Less dyspneic. Chest CT angiogram done yesterday and creatinine remains 1.9. Dr. Mehta to review the CT and make plans as far as surgery is concerned. Patient is anxious to go ahead with the surgery. 09/29/2016 patient sleeping in recliner. Dyspnea is improved. Renal function has improved with creatinine 1.7. Plans are for surgery Sunday with coronary bypass surgery of one vessel and aortic valve replacement. Pleural drainage will take care of the right effusion at that time. Stable from pulmonary standpoint. Please call pulmonary application systems architect this weekend if needed. 10/02/16 Pt seen in CVR, on vent. C.O. 3.6 L. PCW 25. ABG's ok. Wean per protocol. CXR OK. 10/03/2016 patient awake and responsive squeezes fingers on command. ABGs improved. Earlier attempt at CPAP this morning reveal that he had apneic episodes so it was terminated. Hopefully will be able to do CPAP get extubated this morning. His chest x-ray looks okay. Urine output has been marginal. His weight is up 6 kg from pre surgery. Agree with Lasix infusion. Need to decrease IV fluids. 10/04/2016 patient alert oriented. No air leak from right chest tube. Decreased fluid output from mediastinal tube. Oxygen saturation looks good. Patient taking oral feedings. Discussed case with Dr. Mehta. Plans are for patient to go to the floor hopefully later today. 10/05/2016 patient now on telemetry. Right chest tube is been removed. His x- ray show some slightly increased interstitial edema. Creatinine is 2.1. Probably needs to be on a daily dose of Lasix. Oxygen saturation acceptable on low flow oxygen. Will need a good bit of physical therapy. Agree with plans for cardiac rehab. 10/06/2016 patient walking in the room. Oxygen saturation 100% on 2 L. Creatinine down to 1.8. Hopefully can be discharged soon. Strongly recommend cardiac rehab post discharge. This was discussed with the patient. 10/09/2016 patient feels pretty good. He is anxious to proceed with physical therapy. He has a good bit of peripheral edema still. The right pleural effusion is back although smaller. Will add Zaroxolyn to his Lasix. Creatinine 1.9, continue to watch it closely. Exam (Progress Note) - Constitutional Vitals: Period Temp Pulse Resp BP Sys/Hurtado Pulse Ox Last 24 Hr 97.1 F-98.6 F 50-78 16-25 106-132/53-89 90-99 Exam: Patient's responsive, comfortable flat in bed. O2 sat 100% on 2 L. Pupils react to light. Neck supple no bruits. Chest shows a few basilar crackles at the right base. Dullness at right base to percussion. Heart normal rate rhythm grade 1/6 systolic murmur at right base. Abdomen soft nontender no masses. Bowel sounds present. Extremities no clubbing or cyanosis. 1-2+ edema , arms and legs. Calves nontender. Results - Labs CBC & BMP: 10/09/16 04:29 10/09/16 04:29 Lab Results: I have reviewed the past 24 hour labs - Diagnostic Findings Procedure: Chest x-ray: image reviewed by me (Right pleural effusion. Somewhat less than his initial films.) Assessment and Plan (1) Syncope Status: Acute Assessment and plan: Syncope likely due to cardiac causes related to his aortic stenosis. 09/15/16 likely due to his aortic stenosis. 09/18/2016 again the syncope is likely due to his aortic stenosis. 09/20/2016 no symptoms of postural syncope at this time 10/03/2016 syncope was what led to his admission with the finding of severe aortic stenosis Current Visit: Yes (2) Chronic kidney disease Status: Chronic Assessment and plan: Creatinine is 2.1. He has had some renal insufficiency for quite some time related to vascular disease and diabetes. At present I think he is ahead on fluid. I will bump him with Lasix. 09/15/16 creatinine up to 2.3 after a dose of Lasix. Afraid to diurese any more vigorously at present. Asking interventional radiology to drain the loculated right effusion. This should help getting prepped for aortic valve replacement. 09/18/2016 creatinine up to 2.8. Difficulty mobilizing right pleural effusion fluid 09/19/2016 renal function is a little better today. Creatinine down to 2.4. May have had a bump in creatinine related to his contrast last week. 09/20/2016 creatinine up to 2.8. 09/21/2016 creatinine down to 2.5. Improving. Hopefully getting further out from contrast 09/22/2016 chemistries pending today. Hopefully can get creatinine back down to around 2. 09/23/2016 creatinine down to 2.3. This despite giving diuretics. 09/24/2016 creatinine down to 2.1. 09/25/2016 creatinine down to 1.9. This is about baseline for him. 09/26/2016 creatinine 2.1 today. Nephrology following. 09/27/2016 renal function about baseline for him at 1.9 creatinine. Likely will see a rise over the next couple of days due to the contrast today. 09/28/2016 creatinine 1.9 and appear stable despite getting repeat contrast yesterday 09/29/2016 creatinine down to 1.7 despite contrast and diuretics. 10/02/16 Renal function intact now. Cr 1.5 this AM. 10/03/2016 creatinine 1.9. Urine output down to about 20-25 cc an hour. Weight up 6 kg. Agree with Lasix infusion. 10/04/2016 creatinine 2.1 and urine output pretty good on Lasix infusion. Agree with change to intermittent Lasix. 10/05/2016 creatinine 2.1. Needs IV Lasix on a daily basis. 10/06/2016 renal function improved. Creatinine 1.8. 10/09/2016 renal function stable with creatinine 1.9. Has low serum albumin leading to edema. Current Visit: Yes Qualifiers: Chronic kidney disease stage: stage 3 (moderate) Qualified Code(s): N18.3 - Chronic kidney disease, stage 3 (moderate) (3) Coronary artery disease Status: Chronic Assessment and plan: Previous coronary bypass surgery with additional findings at catheterization this admission. 09/25/2016 patient not having any active angina. 09/28/2016 previous coronary bypass surgery. 09/29/1969 will have 1 of coronary bypass is redone. 10/02/16 Had patch bovine graft of one of previous CABG vein grafts. 10/03/2016 status post redo coronary bypass with patch graft. 10/06/2016 status post repair with patch graft. 10/06/2016 status post repair with patch graft. No angina. Current Visit: Yes Qualifiers: Coronary Disease-Associated Artery/Lesion type: [place] artery [place] vs. transplanted heart: [place] heart Associated angina: without angina Qualified Code(s): I25.10 - Atherosclerotic heart disease of [place] coronary artery without angina pectoris (4) Pulmonary hypertension Status: Chronic Assessment and plan: This was not quantified on the echo but is likely to be secondary to his left heart disease with aortic stenosis. 09/15/16 this should be due to his aortic stenosis and congestive heart failure. 09/18/2016 secondary to his left heart disease. 09/20/2016 this is due to his left heart disease. 09/21/2016 due to left heart disease. 09/22/2016 this is secondary to his left heart disease, primarily aortic stenosis 09/23/2016 this is secondary to his aortic stenosis. 09/24/2016 secondary to left heart disease. 09/27/2016 again this is felt to be secondary to his left heart disease primarily aortic stenosis 09/28/2016 apparently due to left heart disease/aortic stenosis 09/29/2016 again this is due to left heart disease. 10/02/16 PA pressures lower since AVR. 10/03/2016 systolic PA pressure in the mid 30s. Continues to improve. 10/04/2016 [place] catheter to be removed today. PA diastolic around 20. 10/05/2016 when his PA line was in place it demonstrated that the peak pulmonary artery pressure had come down as a result of surgery. 10/06/2016 this is due to left heart disease. No specific treatment indicated. 10/09/2016 this is due to left heart disease primarily aortic stenosis. Hopefully we will see improvement with this over time now that he said his aortic valve replaced. However he still has peripheral edema. Current Visit: Yes (5) Severe aortic stenosis Status: Chronic Assessment and plan: Has severe aortic stenosis by echo and catheterization. Likely the possible cause of his congestive heart failure and pulmonary hypertension. 09/15/16 hopefully can have surgery when we get him tuned up. 09/18/2016 will need surgery if he can tolerate it. 09/19/2016 hopefully we can get him tuned up where he can tolerate AVR. 09/20/2016 aortic valve surgery is indicated when we can get him tuned up for it. 09/21/2016 need surgery. Trying to get him tuned up for that. If renal function is stable and right pleural effusion totally evacuated, then hopefully could plan sign. 09/22/2016 x-ray is better. Less dyspnea. If renal function is stable, I would be in favor of proceeding with surgery next week. 09/23/16 ideally should be repaired surgically or replaced. He has some chronic bronchitis but does not have severe COPD. 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 09/24/2016 again trying to tune him up so he can have his aortic valve replaced or repaired. 09/25/2016 trying to get him to the point where he can have his aortic valve replaced or repaired. Needs more physical activity. 09/26/2016 continuing to try to get him where he can tolerate aortic valve surgery. 09/27/[address] done this morning for Dr. Mehta to review. 09/28/2016 Dr. Mheta to review CT and decide whether to proceed with aortic valve replacement or repair 09/29/2016 this has become severe and is causing congestive heart failure. Has well-maintained LV ejection fraction. Set up for surgery Sunday to replace the valve 10/02/16 Post AVR. Weaning from vent will take overnight probably. 10/03/2016 status post aortic valve replacement. Cardiac output is better. Pulmonary capillary wedge pressure still in the low 20s. Diuresing 10/04/2016 status post aVR. 10/05/2016 status post AVR. Seems to be functioning well. 10/06/2016 status post repair. Valve appears to be working well. 10/09/2016 status post repair again no problems apparent with the valve Current Visit: Yes (6) Diabetes mellitus Status: Chronic Assessment and plan: Has some hyperglycemia. Adding sliding scale. 09/15/16 glucoses in the 140-200 range. 09/18/2016 glucoses look okay. 09/19/2016 glucoses are fairly well controlled. 09/20/2016 glucoses look better. 09/21/2016 still mildly elevated glucoses. 09/22/2016 glucoses fairly well controlled. 09/23/2016 blood sugars are okay. 09/24/2016 glucoses are a little high. Adjust insulin, increase Lantus to 15 units. 09/25/2016 glucoses a little better. 09/26/2016 blood sugars are acceptable. 09/27/2016 blood sugars running in the 85-90 range. 09/28/2016 glucoses well controlled. 09/29/2016 blood sugars fairly well controlled. 10/02/16 Glucoses stable on SS insulin. 10/03/2016 glucoses very well controlled 10/04/2016 glucoses well controlled 10/05/2016 glucoses elevated. He is off the infusion. I am resuming before meals and at bedtime sliding scale. 10/06/2016 glucoses fairly well controlled. May need some Lantus insulin before going home 10/09/2016 glucoses running 200-225. Will add Lantus tonight Current Visit: Yes Qualifiers: Diabetes mellitus type: type 2 Chronic kidney disease stage: stage 3 ( moderate) (7) Acute bronchitis Status: Resolved Assessment and plan: Based on the change in sputum color and elevated white count 16,000 think is reasonable to cover him with antibiotics for this. Will use Atrovent for bronchodilators. 09/15/16 empirically on antibiotics and Atrovent. I think his main problem respiratory escobar is congestive heart failure related to his aortic stenosis. Would not delay surgery for bronchitis in this situation 09/18/2016 on empiric antibiotics. 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 It is sensitive to Cipro. I will change him to oral Cipro. 09/20/2016 I do not hear any rhonchi. He is on oral Cipro. 09/21/2016 bronchitis is improved. Probably needs a couple more days of Cipro. 09/22/2016 he has had a week's worth of antibiotics. Bronchitis is quiet now. We will stop Cipro. 09/23/2016 he has completed antibiotics. 09/25/2016 he is not coughing at present. 10/05/2016 this has resolved. Current Visit: Yes Specialty Discharge - Follow Up or Referrals
[2016-10-09] MEDS: INSULIN REGULAR 100 UNIT/ML SUBCUT SCH ×4 (08:16→21:48)
[2016-10-09] MEDS: FERROUS SULFATE 325 MG TABLET PO SCH (08:18)
[2016-10-09] MEDS: FUROSEMIDE 40 MG TABLET PO SCH ×2 (08:18→15:46)
[2016-10-09] MEDS: APIXABAN 2.5 MG TABLET PO SCH ×2 (08:18→21:47)
[2016-10-09] MEDS: PANTOPRAZOLE 40 MG TABLET PO SCH (08:19)
[2016-10-09] MEDS: DOCUSATE SODIUM 100 MG CAPSULE PO SCH (08:19)
[2016-10-09] MEDS: metOLazone 2.5 MG TABLET PO SCH (08:19)
[2016-10-09] MEDS: ASPIRIN EC 325 MG TABLET PO SCH (08:19)
[2016-10-09] MEDS: CHLORHEXIDINE 0.12% ORAL RINSE 60 ML BOTTLE SWISH/SPIT SCH ×2 (08:21→21:49)
--- NOTE | 2016-10-09 09:26 | Cardiology Progress Note ---
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 with normal preop EF Status post three-vessel CABG 2002. Recent cath showed patent SINGH graft to LAD, occluded vein graft to [place] right coronary which had only moderate disease and patent [place] circumflex Renal insufficiency Plan 40 mg IV Lasix twice daily Zaroxolyn 2.5 mg daily added KCl BMP in a.m. Eliquis 2.5 mg twice daily Duo nebs Exam (Progress Note) - Constitutional Vitals: Period Temp Pulse Resp BP Sys/Hurtado Pulse Ox Last 24 Hr 97.1 F-98.6 F 50-78 16-25 106-132/53-89 94-99 Result/EKG - Labs CBC & BMP: 10/09/16 04:29 10/09/16 04:29 Labs: Laboratory Results - last 24 hr 10/08/16 10/08/16 10/08/16 11:14 15:20 20:03 WBC RBC Hgb Hct MCV MCH MCHC RDW Plt Count MPV Neut % (Auto) Lymph % (Auto) [place] % (Auto) Eos % (Auto) Baso % (Auto) Neut # (Auto) Lymph # (Auto) [place] # (Auto) Eos # (Auto) Baso # (Auto) Total Counted Immature Gran % Nucleated RBC % Immature Gran # Segmented Neutrophils Band Neutrophils Lymphocytes Monocytes Eosinophils Metamyelocytes Nucleated RBCs # Platelet Estimate Pappenheimer Bodies Sodium Potassium Chloride Carbon Dioxide Anion Gap BUN Creatinine GFR Calculation BUN/Creatinine Ratio Glucose POC Glucose 289 H 227 H 277 H Calculated Osmolality Calcium Magnesium Total Bilirubin Direct Bilirubin Indirect Bilirubin AST ALT Alkaline Phosphatase Total Creatine Kinase CK-MB (CK-2) Troponin I Total Protein Albumin Globulin Albumin/Globulin Ratio 10/09/16 10/09/16 10/09/16 04:29 04:29 07:14 WBC 8.6 RBC 2.87 L Hgb 8.7 L Hct 26.1 L MCV 90.9 MCH 30 MCHC 33.3 RDW 14.9 Plt Count 86 L D MPV 11.0 Neut % (Auto) 73.5 Lymph % (Auto) 12.3 L [place] % (Auto) 11.8 Eos % (Auto) 1.7 Baso % (Auto) 0.1 Neut # (Auto) 6.3 Lymph # (Auto) 1.1 L [place] # (Auto) 1.0 H Eos # (Auto) 0.2 Baso # (Auto) 0.0 Total Counted 100 Immature Gran % 0.6 Nucleated RBC % 0.0 Immature Gran # 0.05 Segmented Neutrophils 75 Band Neutrophils 3 Lymphocytes 12 L Monocytes 7 Eosinophils 2 Metamyelocytes 1 Nucleated RBCs # 0.00 Platelet Estimate Decreased Pappenheimer Bodies Doctor Naturopathic Sodium 138 Potassium 4.4 Chloride 98 Carbon Dioxide 32 Anion Gap 12.4 BUN 69 H Creatinine 1.90 H GFR Calculation 35 BUN/Creatinine Ratio 36.00 H Glucose 127 H POC Glucose 183 H Calculated Osmolality 296.7 Calcium 7.9 L Magnesium 2.7 H Total Bilirubin 1.70 H Direct Bilirubin 0.50 H Indirect Bilirubin 1.2 H AST 33 ALT 29 Alkaline Phosphatase 94 Total Creatine Kinase 29 L CK-MB (CK-2) < 1.0 Troponin I 0.545 H D Total Protein 5.3 L Albumin 2.4 L Globulin 2.9 Albumin/Globulin Ratio 0.8 L Quality Measures - VTE Contraindication to Pharmacological VTE Prophylaxis: High Risk of Bleeding - Stroke Onset of Symptoms Date: 09/05/16 Onset of Symptoms Time: 15:30 Symptom Onset Unknown: No Specialty Discharge - Follow Up or Referrals
--- NOTE | 2016-10-09 09:56 | XRay Report ---
Exam: XR chest 2V Date: 10/09/2016 4:00 AM Indication: Shortness of breath Comparison: 10/08/2016 Technical: PA lateral Findings: Cardiomegaly is present with previous sternotomy. Right IJ catheter is present. Low volume right effusion atelectatic change present with a smaller left pleural effusion atelectasis present. No pneumothorax. ASVD is present. Mediastinum is otherwise intact. Impression: 1. Cardiomegaly with persistent effusions and atelectatic changes similar to previous study with stable position of the sternotomy wires and IJ catheter. No significant interval change PROCEDURE INTERPRETED AT [facility] DEPARTMENT OF RADIOLOGY Final Report Signed by: Dr. Hair Encarnacion
[2016-10-09] MEDS: MUPIROCIN 2% OINT 22 GM TUBE TOP SCH ×2 (11:31→21:48)
--- NOTE | 2016-10-09 11:31 | Nephrology Progress Note ---
Nephrology - PN: Subj Interval history: No shortness of breath or chest pain. Exam (PN)-Nephrology - Vital Signs Vital signs: Period Temp Pulse Resp BP Sys/Hurtado Pulse Ox Last 24 Hr 97.1 F-98.6 F 50-78 16-25 106-132/53-89 94-99 Exam: ENT: Normal Cardiovascular: Regular rate and rhythm. No murmur rub or gallop Lungs: Clear Extremities: 1-2+ edema - Lab 10/09/16 04:29 10/09/16 04:29 Most recent lab results ABG pH 7.393 (7.35-7.45) 10/03/16 11:33 ABG pCO2 45.9 MM HG (35-48) 10/03/16 11:33 ABG pO2 145.2 MM HG (80-95) H 10/03/16 11:33 ABG HCO3 27.3 MMOL/L (20-26) H 10/03/16 11:33 ABG O2 Saturation 98.5 % (95-100) 10/03/16 11:33 Calcium 7.9 MG/DL (8.5-10.1) L 10/09/16 04:29 Magnesium 2.7 MG/DL (1.8-2.4) H 10/09/16 04:29 Assessment and Plan (1) Acute on chronic renal failure Status: Acute Assessment and plan: 86-year-old man with: * CRF stage III. Renal function stable. Monitor closely with diuresis. Serum albumin 2.4 is major contributing factor to lower extremity edema as well as effusion * Aortic stenosis. Status post valve replacement * CAD. * Diabetes mellitus * Hypertension Current Visit: Yes (2) Near syncope Status: Acute Current Visit: Yes (3) Pleural effusion Status: Acute Current Visit: Yes (4) Coronary artery disease Status: Chronic Current Visit: Yes Qualifiers: Coronary Disease-Associated Artery/Lesion type: [place] artery [place] vs. transplanted heart: [place] heart Associated angina: without angina Qualified Code(s): I25.10 - Atherosclerotic heart disease of [place] coronary artery without angina pectoris (5) Diabetes mellitus Status: Chronic Current Visit: Yes Qualifiers: Diabetes mellitus type: type 2 Chronic kidney disease stage: stage 3 ( moderate) (6) Hypertension Status: Chronic Current Visit: Yes Qualifiers: Hypertension type: essential hypertension Qualified Code(s): I10 - Essential (primary) hypertension (7) Severe aortic stenosis Status: Chronic Current Visit: Yes (8) Bradycardia Status: Resolved Current Visit: Yes Specialty Discharge - Follow Up or Referrals
[2016-10-09] MEDS: METOPROLOL SUCCINATE XL 50 MG TABLET PO SCH (17:59)
[2016-10-09] MEDS: DESITIN 4OZ/NYSTATIN 15 GRAM MIXTURE PASTE TOP SCH ×2 (18:15→21:49)
[2016-10-09] MEDS: ATORVASTATIN 80 MG TABLET PO SCH (21:47)
[2016-10-09] MEDS: INSULIN GLARGINE 100 UNIT/ML SUBCUT SCH (21:47)
[2016-10-10] MEDS: IPRATROPIUM 500 MCG/2.5 ML NEB RESP TX SCH ×4 (01:20→20:02)
[2016-10-10 05:49] LABS: Basophils % 0.1 % (0.0-0.8); Eosinophils # 0.1 10*3/uL (0.0-0.87); Eosinophils % 0.9 % (0.00-10.9); Hematocrit 23.7 VOL% (42.0-52.0); Hemoglobin 7.8 GM/DL (14.0-18.0); Immature Granulocytes % 0.9 %; Immature Granulocytes Absolute 0.07 #; Lymphocytes % 12.6 % (21.2-54.2); Mean Corpuscular HGB Conc 32.9 GM/DL (32-36); Mean Corpuscular Hemoglobin 30 PG (27-34); Mean Corpuscular Volume 90.8 FL (87-102); Mean Platelet Volume 10.3 FL (9.6-12.0); Monocytes % 12.1 % (1.7-12.7); Neutrophils # 5.9 10*3/uL (1.4-7.4); Neutrophils % 73.4 % (38.7-73.9); Platelet Count 88 T/CUMM (130-400); Red Blood Count 2.61 MC/CUMM (3.8-5.5); Red Cell Distribution Width 15.2 % (9.3-17.3)
[2016-10-10 06:11] LABS: Lymphocytes 8 % (20-55); Segmented Neutrophils 80 % (50-85); Total Cells Counted 100
[2016-10-10 06:12] LABS: Hypochromasia 1+; Microcytosis Slight; Platelet Estimate Decreased
[2016-10-10 06:20] LABS: Calcium 7.9 MG/DL (8.5-10.1); Magnesium 2.6 MG/DL (1.8-2.4); Osmolality,Calculated 299.5 MOS/KG (273-304); Potassium 3.6 MMOL/L (3.5-5.1)
[2016-10-10] MEDS: INSULIN REGULAR 100 UNIT/ML SUBCUT SCH ×3 (08:01→16:38)
[2016-10-10] MEDS: ASPIRIN EC 325 MG TABLET PO SCH (08:03)
[2016-10-10] MEDS: FERROUS SULFATE 325 MG TABLET PO SCH (08:03)
[2016-10-10] MEDS: METOPROLOL SUCCINATE XL 50 MG TABLET PO SCH (08:03)
[2016-10-10] MEDS: DOCUSATE SODIUM 100 MG CAPSULE PO SCH (08:03)
[2016-10-10] MEDS: PANTOPRAZOLE 40 MG TABLET PO SCH (08:04)
[2016-10-10] MEDS: FUROSEMIDE 40 MG TABLET PO SCH ×2 (08:04→16:37)
[2016-10-10] MEDS: metOLazone 2.5 MG TABLET PO SCH (08:04)
[2016-10-10] MEDS: APIXABAN 2.5 MG TABLET PO SCH (08:05)
[2016-10-10] MEDS: CHLORHEXIDINE 0.12% ORAL RINSE 60 ML BOTTLE SWISH/SPIT SCH ×2 (08:06→21:45)
[2016-10-10] MEDS: MUPIROCIN 2% OINT 22 GM TUBE TOP SCH ×2 (08:08→22:45)
--- NOTE | 2016-10-10 08:14 | Pulmonology Progress Note ---
Pulmonary - PN: Subj Interval history: This 86-year-old white male has congestive heart failure due to aortic stenosis. Also has atherosclerotic heart disease with previous coronary bypass surgery. Needs to have his IV aortic valve replaced. He has a right pleural effusion. His chest x-ray looks a little bit better today as far as the pulmonary edema is concerned. However we gave him Lasix yesterday and his creatinine has risen a little more. I think we would do best to get the right pleural fluid drained in preparation for surgery. Will ask interventional radiology to do this since it appears to be loculated laterally and would be safely done with ultrasound guidance. Patient is not sleeping well. Should tolerate some Ativan at bedtime. Quite anxious. I should note that the reason he has pleural fluid on the right and not the left is that he has had a previous left decortication. 09/18/2016 we have tried to diurese him and it has not been very successful. His creatinine has risen. He had a right thoracentesis with removal of 800 mL of fluid but he had his CT scan yesterday still showed significant right effusion. The pleural fluid is a transudate. Certainly think this is due to congestive heart failure, due to his aortic stenosis. It will be very difficult to treat his heart failure without the valve being replaced. However he is at high risk for surgery given his fragile state and acute kidney injury with Lasix and low cardiac output. Will ask nephrology to see if they can help us with this. Patient at present is about the same as far as her shortness of breath. He is empirically on antibiotics. 09/19/2016 he continues to complain of dyspnea. Primarily says he has trouble breathing through his nose. He is on 2 different nose sprays in his nasal passages appear open on my exam. I think is primarily short of breath related to his congestive heart failure/aortic stenosis. Renal function is a little better. Perhaps getting further out from contrast studies is helping. We do need to try to diurese him further. Nephrology is following as well. 09/20/2016 patient feels a little better sitting up in the chair. However his chest x-ray shows that the right pleural effusion has increased in size. Having a difficult time diuresing him with his creatinine 2.8. Would recommend putting a pleural catheter in the right side to drain this. Hopefully this will help us prep him for possible aortic valve replacement. The pleural effusion is due to congestive heart failure, however they are having a difficult time diuresing him. 09/21/2016 breathing is better since getting the pleural catheter. Chest x-ray today pending. Renal function getting a little better. Hopefully can plan aortic valve surgery soon. 09/22/2016 patient feels a little better. Should be able to tolerate nasal biprong's now. Chest x-ray shows the right pleural effusion has been evacuated. Put out about 200 mL from chest tube since yesterday morning. Need to keep it in for now. Renal function reports are pending from this morning. He does appear to be holding his own layer. Still has some peripheral edema and we need to bump with Lasix again. In my opinion he will need to have aortic valve surgery in order to get back to any meaningful life at home. Otherwise he will be a bed to chair existence. Certainly some risk involved as far as postoperative renal function and/or respiratory failure, but I favor proceeding with surgery next week. 09/23/2016 put out another 400 mL from his chest tube yesterday. Still has peripheral edema. We need to diurese him further. Renal insufficiency makes it difficult. Dr. Mehta wants to do a CT angiogram to further evaluate his aortic arch. His creatinine is down to 2.3. I feel sure further contrast would bump his creatinine up above 3 again and perhaps worse. I do think he would be better off having surgery then not having surgery. I do not think he can go home and come back as he still has a pleural catheter in. We may consider doing a pleurodesis, which is unusual for a transudative type effusion , and only works about half the time in this situation. 09/24/2016 his right pleural catheter came out during the night. Chest x-ray this morning shows the right lung well expanded. He does have some interstitial edema and some interstitial scarring. Creatinine has come down further to 2.1. We need to try to diurese him further. Would not replace the pleural catheter at this point. 09/25/2016 patient needs to be more active. Creatinine is come down to 1.9. Plans are for a CT angiogram of the chest tomorrow. Will need to watch renal function closely after that. Since the CT is planned I will not order chest x- ray 09/26/2016 CT angiogram was canceled because creatinine was up to 2.1. Defer to nephrology, cardiovascular surgery, and radiology on plans there. His chest x- ray shows recurrence of right pleural effusion. Not as much as before but still there. We are trying to diurese him as much as his kidneys will allow. He still has peripheral edema. 09/27/[address] angiogram today. Dr. Mehta to review to decide about surgery. Creatinine was 1.9 this morning. Patient had episode of increased dyspnea last night. Did get better with 1 mg of morphine. If he is to have surgery in the next couple of days, then the right pleural fluid could be drained at that time. If surgery is delayed for several days to follow renal function, then he should have the right pleural catheter replaced. 09/28/2016 patient feels better today. Sleeping better. Less dyspneic. Chest CT angiogram done yesterday and creatinine remains 1.9. Dr. Mehta to review the CT and make plans as far as surgery is concerned. Patient is anxious to go ahead with the surgery. 09/29/2016 patient sleeping in recliner. Dyspnea is improved. Renal function has improved with creatinine 1.7. Plans are for surgery Sunday with coronary bypass surgery of one vessel and aortic valve replacement. Pleural drainage will take care of the right effusion at that time. Stable from pulmonary standpoint. Please call pulmonary television repair teacher this weekend if needed. 10/02/16 Pt seen in CVR, on vent. C.O. 3.6 L. PCW 25. ABG's ok. Wean per protocol. CXR OK. 10/03/2016 patient awake and responsive squeezes fingers on command. ABGs improved. Earlier attempt at CPAP this morning reveal that he had apneic episodes so it was terminated. Hopefully will be able to do CPAP get extubated this morning. His chest x-ray looks okay. Urine output has been marginal. His weight is up 6 kg from pre surgery. Agree with Lasix infusion. Need to decrease IV fluids. 10/04/2016 patient alert oriented. No air leak from right chest tube. Decreased fluid output from mediastinal tube. Oxygen saturation looks good. Patient taking oral feedings. Discussed case with Dr. Mehta. Plans are for patient to go to the floor hopefully later today. 10/05/2016 patient now on telemetry. Right chest tube is been removed. His x- ray show some slightly increased interstitial edema. Creatinine is 2.1. Probably needs to be on a daily dose of Lasix. Oxygen saturation acceptable on low flow oxygen. Will need a good bit of physical therapy. Agree with plans for cardiac rehab. 10/06/2016 patient walking in the room. Oxygen saturation 100% on 2 L. Creatinine down to 1.8. Hopefully can be discharged soon. Strongly recommend cardiac rehab post discharge. This was discussed with the patient. 10/09/2016 patient feels pretty good. He is anxious to proceed with physical therapy. He has a good bit of peripheral edema still. The right pleural effusion is back although smaller. Will add Zaroxolyn to his Lasix. Creatinine 1.9, continue to watch it closely. 10/10/2016 feeling better. Able to lie flat in the bed without getting short of breath. Still has peripheral edema and small pleural effusions. Still on anticoagulants. Creatinine 2.0. He is very weak. I think a swing bed for physical therapy may be a good idea Exam (Progress Note) - Constitutional Vitals: Period Temp Pulse Resp BP Sys/[place] Pulse Ox Last 24 Hr 97.1 F-98.6 F 77-98 18-22 93-142/49-66 94-100 Exam: Patient's responsive, comfortable flat in bed. O2 sat 100% on 2 L. Pupils react to light. Neck supple no bruits. Chest shows a few basilar crackles at the right base. Dullness at right base to percussion. Heart normal rate rhythm grade 1/6 systolic murmur at right base. Sternal wound looks clean. Abdomen soft nontender no masses. Bowel sounds present. Extremities no clubbing or cyanosis. 1-2+ edema, arms and legs. Calves nontender. Little change from yesterday Results - Labs CBC & BMP: 10/10/16 05:02 10/10/16 05:02 Lab Results: I have reviewed the past 24 hour labs Assessment and Plan (1) Syncope Status: Acute Assessment and plan: Syncope likely due to cardiac causes related to his aortic stenosis. 09/15/16 likely due to his aortic stenosis. 09/18/2016 again the syncope is likely due to his aortic stenosis. 09/20/2016 no symptoms of postural syncope at this time 10/03/2016 syncope was what led to his admission with the finding of severe aortic stenosis Current Visit: Yes (2) Chronic kidney disease Status: Chronic Assessment and plan: Creatinine is 2.1. He has had some renal insufficiency for quite some time related to vascular disease and diabetes. At present I think he is ahead on fluid. I will bump him with Lasix. 09/15/16 creatinine up to 2.3 after a dose of Lasix. Afraid to diurese any more vigorously at present. Asking interventional radiology to drain the loculated right effusion. This should help getting prepped for aortic valve replacement. 09/18/2016 creatinine up to 2.8. Difficulty mobilizing right pleural effusion fluid 09/19/2016 renal function is a little better today. Creatinine down to 2.4. May have had a bump in creatinine related to his contrast last week. 09/20/2016 creatinine up to 2.8. 09/21/2016 creatinine down to 2.5. Improving. Hopefully getting further out from contrast 09/22/2016 chemistries pending today. Hopefully can get creatinine back down to around 2. 09/23/2016 creatinine down to 2.3. This despite giving diuretics. 09/24/2016 creatinine down to 2.1. 09/25/2016 creatinine down to 1.9. This is about baseline for him. 09/26/2016 creatinine 2.1 today. Nephrology following. 09/27/2016 renal function about baseline for him at 1.9 creatinine. Likely will see a rise over the next couple of days due to the contrast today. 09/28/2016 creatinine 1.9 and appear stable despite getting repeat contrast yesterday 09/29/2016 creatinine down to 1.7 despite contrast and diuretics. 10/02/16 Renal function intact now. Cr 1.5 this AM. 10/03/2016 creatinine 1.9. Urine output down to about 20-25 cc an hour. Weight up 6 kg. Agree with Lasix infusion. 10/04/2016 creatinine 2.1 and urine output pretty good on Lasix infusion. Agree with change to intermittent Lasix. 10/05/2016 creatinine 2.1. Needs IV Lasix on a daily basis. 10/06/2016 renal function improved. Creatinine 1.8. 10/09/2016 renal function stable with creatinine 1.9. Has low serum albumin leading to edema. 10/10/2016 creatinine 2.0. This is fairly stable Current Visit: Yes Qualifiers: Chronic kidney disease stage: stage 3 (moderate) Qualified Code(s): N18.3 - Chronic kidney disease, stage 3 (moderate) (3) Coronary artery disease Status: Chronic Assessment and plan: Previous coronary bypass surgery with additional findings at catheterization this admission. 09/25/2016 patient not having any active angina. 09/28/2016 previous coronary bypass surgery. 09/29/1969 will have 1 of coronary bypass is redone. 10/02/16 Had patch bovine graft of one of previous CABG vein grafts. 10/03/2016 status post redo coronary bypass with patch graft. 10/06/2016 status post repair with patch graft. 10/06/2016 status post repair with patch graft. No angina. Current Visit: Yes Qualifiers: Coronary Disease-Associated Artery/Lesion type: [place] artery [place] vs. transplanted heart: [place] heart Associated angina: without angina Qualified Code(s): I25.10 - Atherosclerotic heart disease of [place] coronary artery without angina pectoris (4) Pulmonary hypertension Status: Chronic Assessment and plan: This was not quantified on the echo but is likely to be secondary to his left heart disease with aortic stenosis. 09/15/16 this should be due to his aortic stenosis and congestive heart failure. 09/18/2016 secondary to his left heart disease. 09/20/2016 this is due to his left heart disease. 09/21/2016 due to left heart disease. 09/22/2016 this is secondary to his left heart disease, primarily aortic stenosis 09/23/2016 this is secondary to his aortic stenosis. 09/24/2016 secondary to left heart disease. 09/27/2016 again this is felt to be secondary to his left heart disease primarily aortic stenosis 09/28/2016 apparently due to left heart disease/aortic stenosis 09/29/2016 again this is due to left heart disease. 10/02/16 PA pressures lower since AVR. 10/03/2016 systolic PA pressure in the mid 30s. Continues to improve. 10/04/2016 [place] catheter to be removed today. PA diastolic around 20. 10/05/2016 when his PA line was in place it demonstrated that the peak pulmonary artery pressure had come down as a result of surgery. 10/06/2016 this is due to left heart disease. No specific treatment indicated. 10/09/2016 this is due to left heart disease primarily aortic stenosis. Hopefully we will see improvement with this over time now that he said his aortic valve replaced. However he still has peripheral edema. 10/10/2016 probably would be a good idea to recheck echo after about 3 months post AVR. I expect the pulmonary hypertension will get somewhat better Current Visit: Yes (5) Severe aortic stenosis Status: Chronic Assessment and plan: Has severe aortic stenosis by echo and catheterization. Likely the possible cause of his congestive heart failure and pulmonary hypertension. 09/15/16 hopefully can have surgery when we get him tuned up. 09/18/2016 will need surgery if he can tolerate it. 09/19/2016 hopefully we can get him tuned up where he can tolerate AVR. 09/20/2016 aortic valve surgery is indicated when we can get him tuned up for it. 09/21/2016 need surgery. Trying to get him tuned up for that. If renal function is stable and right pleural effusion totally evacuated, then hopefully could plan sign. 09/22/2016 x-ray is better. Less dyspnea. If renal function is stable, I would be in favor of proceeding with surgery next week. 09/23/16 ideally should be repaired surgically or replaced. He has some chronic bronchitis but does not have severe COPD. 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 09/24/2016 again trying to tune him up so he can have his aortic valve replaced or repaired. 09/25/2016 trying to get him to the point where he can have his aortic valve replaced or repaired. Needs more physical activity. 09/26/2016 continuing to try to get him where he can tolerate aortic valve surgery. 09/27/[address] done this morning for Dr. Mehta to review. 09/28/2016 Dr. Mehta to review CT and decide whether to proceed with aortic valve replacement or repair 09/29/2016 this has become severe and is causing congestive heart failure. Has well-maintained LV ejection fraction. Set up for surgery Sunday to replace the valve 10/02/16 Post AVR. Weaning from vent will take overnight probably. 10/03/2016 status post aortic valve replacement. Cardiac output is better. Pulmonary capillary wedge pressure still in the low 20s. Diuresing 10/04/2016 status post aVR. 10/05/2016 status post AVR. Seems to be functioning well. 10/06/2016 status post repair. Valve appears to be working well. 10/09/2016 status post repair again no problems apparent with the valve Current Visit: Yes (6) Diabetes mellitus Status: Chronic Assessment and plan: Has some hyperglycemia. Adding sliding scale. 09/15/16 glucoses in the 140-200 range. 09/18/2016 glucoses look okay. 09/19/2016 glucoses are fairly well controlled. 09/20/2016 glucoses look better. 09/21/2016 still mildly elevated glucoses. 09/22/2016 glucoses fairly well controlled. 09/23/2016 blood sugars are okay. 09/24/2016 glucoses are a little high. Adjust insulin, increase Lantus to 15 units. 09/25/2016 glucoses a little better. 09/26/2016 blood sugars are acceptable. 09/27/2016 blood sugars running in the 85-90 range. 09/28/2016 glucoses well controlled. 09/29/2016 blood sugars fairly well controlled. 10/02/16 Glucoses stable on SS insulin. 10/03/2016 glucoses very well controlled 10/04/2016 glucoses well controlled 10/05/2016 glucoses elevated. He is off the infusion. I am resuming before meals and at bedtime sliding scale. 10/06/2016 glucoses fairly well controlled. May need some Lantus insulin before going home 10/09/2016 glucoses running 200-225. Will add Lantus tonight 10/10/2016 started on Lantus last night. Getting diabetic training. Additional time at a swing bed may help this as well. Current Visit: Yes Qualifiers: Diabetes mellitus type: type 2 Chronic kidney disease stage: stage 3 ( moderate) (7) Acute bronchitis Status: Resolved Assessment and plan: Based on the change in sputum color and elevated white count 16,000 think is reasonable to cover him with antibiotics for this. Will use Atrovent for bronchodilators. 09/15/16 empirically on antibiotics and Atrovent. I think his main problem respiratory escobar is congestive heart failure related to his aortic stenosis. Would not delay surgery for bronchitis in this situation 09/18/2016 on empiric antibiotics. 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 It is sensitive to Cipro. I will change him to oral Cipro. 09/20/2016 I do not hear any rhonchi. He is on oral Cipro. 09/21/2016 bronchitis is improved. Probably needs a couple more days of Cipro. 09/22/2016 he has had a week's worth of antibiotics. Bronchitis is quiet now. We will stop Cipro. 09/23/2016 he has completed antibiotics. 09/25/2016 he is not coughing at present. 10/05/2016 this has resolved. Current Visit: Yes Specialty Discharge - Follow Up or Referrals
--- NOTE | 2016-10-10 09:19 | Cardiothoracic Progress Note ---
Cardiothoracic Subjective Interval history: Patient continued slow recovery. Vital signs have been stable and he appears to be breathing comfortably. He remains very weak and he still has a picture of generalized edema. His creatinine seems to have settled around 2.0. He may need more vigorous diuresis but I will defer to nephrology and pulmonary medicine for these decisions. From my standpoint I believe he could be transferred to a swing bed at any time. He is probably going to need assisted care for at least a couple of weeks. Exam (Progress Note) - Constitutional Vitals: Period Temp Pulse Resp BP Sys/[place]ado Pulse Ox Last 24 Hr 97.1 F-98.6 F 77-98 18-22 93-142/49-66 94-100 Result/EKG - Labs CBC & BMP: 10/10/16 05:02 10/10/16 05:02 Labs: Laboratory Results - last 24 hr 10/09/16 10/09/16 10/09/16 11:23 16:16 20:34 WBC RBC Hgb Hct MCV MCH MCHC RDW Plt Count MPV Neut % (Auto) Lymph % (Auto) [place] % (Auto) Eos % (Auto) Baso % (Auto) Neut # (Auto) Lymph # (Auto) [place] # (Auto) Eos # (Auto) Baso # (Auto) Total Counted Immature Gran % Nucleated RBC % Immature Gran # Segmented Neutrophils Lymphocytes Monocytes Nucleated RBCs # Platelet Estimate Hypochromasia Microcytosis Sodium Potassium Chloride Carbon Dioxide Anion Gap BUN Creatinine GFR Calculation BUN/Creatinine Ratio Glucose POC Glucose 169 H 329 H 170 H Calculated Osmolality Calcium Magnesium 10/10/16 10/10/16 10/10/16 05:02 05:02 07:11 WBC 8.0 RBC 2.61 L Hgb 7.8 L Hct 23.7 L MCV 90.8 MCH 30 MCHC 32.9 RDW 15.2 Plt Count 88 L MPV 10.3 Neut % (Auto) 73.4 Lymph % (Auto) 12.6 L [place] % (Auto) 12.1 Eos % (Auto) 0.9 Baso % (Auto) 0.1 Neut # (Auto) 5.9 Lymph # (Auto) 1.0 L [place] # (Auto) 1.0 H Eos # (Auto) 0.1 Baso # (Auto) 0.0 Total Counted 100 Immature Gran % 0.9 Nucleated RBC % 0.0 Immature Gran # 0.07 Segmented Neutrophils 80 Lymphocytes 8 L Monocytes 12 Nucleated RBCs # 0.00 Platelet Estimate Decreased Hypochromasia 1+ Microcytosis Slight Sodium 139 Potassium 3.6 Chloride 98 Carbon Dioxide 31 Anion Gap 13.6 BUN 71 H Creatinine 2.00 H GFR Calculation 33 BUN/Creatinine Ratio 35.00 H Glucose 141 H POC Glucose 174 H Calculated Osmolality 299.5 Calcium 7.9 L Magnesium 2.6 H Quality Measures - VTE Contraindication to Pharmacological VTE Prophylaxis: High Risk of Bleeding - Stroke Onset of Symptoms Date: 09/05/16 Onset of Symptoms Time: 15:30 Symptom Onset Unknown: No Specialty Discharge - Follow Up or Referrals
--- NOTE | 2016-10-10 09:47 | Cardiology Progress Note ---
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 with normal preop EF. H&H today is down to 7.8 and 23.7. 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 with normal preop EF Status post three-vessel CABG 2002 Recent cardiac cath showed patent SINGH graft to LAD, occluded vein graft to the right coronary, and only moderate disease in the [place] circumflex Mild chronic renal insufficiency Anemia Debility Plan DC Eliquis Transfuse 2 units packed red blood cells Follow H&H Protonix Stool for occult blood Exam (Progress Note) - Constitutional Vitals: Period Temp Pulse Resp BP Sys/Hurtado Pulse Ox Last 24 Hr 97.1 F-98.6 F 77-98 18-22 93-142/49-66 94-100 Result/EKG - Labs CBC & BMP: 10/10/16 05:02 10/10/16 05:02 Labs: Laboratory Results - last 24 hr 10/09/16 10/09/16 10/09/16 11:23 16:16 20:34 WBC RBC Hgb Hct MCV MCH MCHC RDW Plt Count MPV Neut % (Auto) Lymph % (Auto) [place] % (Auto) Eos % (Auto) Baso % (Auto) Neut # (Auto) Lymph # (Auto) [place] # (Auto) Eos # (Auto) Baso # (Auto) Total Counted Immature Gran % Nucleated RBC % Immature Gran # Segmented Neutrophils Lymphocytes Monocytes Nucleated RBCs # Platelet Estimate Hypochromasia Microcytosis Sodium Potassium Chloride Carbon Dioxide Anion Gap BUN Creatinine GFR Calculation BUN/Creatinine Ratio Glucose POC Glucose 169 H 329 H 170 H Calculated Osmolality Calcium Magnesium 10/10/16 10/10/16 10/10/16 05:02 05:02 07:11 WBC 8.0 RBC 2.61 L Hgb 7.8 L Hct 23.7 L MCV 90.8 MCH 30 MCHC 32.9 RDW 15.2 Plt Count 88 L MPV 10.3 Neut % (Auto) 73.4 Lymph % (Auto) 12.6 L [place] % (Auto) 12.1 Eos % (Auto) 0.9 Baso % (Auto) 0.1 Neut # (Auto) 5.9 Lymph # (Auto) 1.0 L [place] # (Auto) 1.0 H Eos # (Auto) 0.1 Baso # (Auto) 0.0 Total Counted 100 Immature Gran % 0.9 Nucleated RBC % 0.0 Immature Gran # 0.07 Segmented Neutrophils 80 Lymphocytes 8 L Monocytes 12 Nucleated RBCs # 0.00 Platelet Estimate Decreased Hypochromasia 1+ Microcytosis Slight Sodium 139 Potassium 3.6 Chloride 98 Carbon Dioxide 31 Anion Gap 13.6 BUN 71 H Creatinine 2.00 H GFR Calculation 33 BUN/Creatinine Ratio 35.00 H Glucose 141 H POC Glucose 174 H Calculated Osmolality 299.5 Calcium 7.9 L Magnesium 2.6 H Quality Measures - VTE Contraindication to Pharmacological VTE Prophylaxis: High Risk of Bleeding - Stroke Onset of Symptoms Date: 09/05/16 Onset of Symptoms Time: 15:30 Symptom Onset Unknown: No Specialty Discharge - Follow Up or Referrals
[2016-10-10] MEDS: DESITIN 4OZ/NYSTATIN 15 GRAM MIXTURE PASTE TOP SCH ×2 (11:50→21:45)
[2016-10-10 20:18] LABS: Hematocrit 28.5 VOL% (42.0-52.0)
[2016-10-10 20:22] LABS: Hemoglobin 9.5 GM/DL (14.0-18.0)
--- NOTE | 2016-10-10 21:55 | Nephrology Progress Note ---
Nephrology - PN: Subj Interval history: He feels weak but denies shortness of breath at rest. No chest pain Exam (PN)-Nephrology - Vital Signs Vital signs: Period Temp Pulse Resp BP Sys/Hurtado Pulse Ox Last 24 Hr 97.4 F-99.7 F 77-98 17-24 93-131/53-71 91-100 Exam: ENT: Normal Cardiovascular: Regular rate and rhythm. No murmur rub or gallop Lungs: Clear Extremities: 1-2+ edema - Lab 10/10/16 20:12 10/10/16 05:02 Most recent lab results ABG pH 7.393 (7.35-7.45) 10/03/16 11:33 ABG pCO2 45.9 MM HG (35-48) 10/03/16 11:33 ABG pO2 145.2 MM HG (80-95) H 10/03/16 11:33 ABG HCO3 27.3 MMOL/L (20-26) H 10/03/16 11:33 ABG O2 Saturation 98.5 % (95-100) 10/03/16 11:33 Calcium 7.9 MG/DL (8.5-10.1) L 10/10/16 05:02 Magnesium 2.6 MG/DL (1.8-2.4) H 10/10/16 05:02 Assessment and Plan (1) Acute on chronic renal failure Status: Acute Assessment and plan: 86-year-old man with: * CRF stage III. Renal function stable. Monitor closely with diuresis. Serum albumin 2.4 is major contributing factor to lower extremity edema as well as effusion * Aortic stenosis. Status post valve replacement * CAD. * Diabetes mellitus * Hypertension * Anemia. Transfusion today Current Visit: Yes (2) Near syncope Status: Acute Current Visit: Yes (3) Pleural effusion Status: Acute Current Visit: Yes (4) Coronary artery disease Status: Chronic Current Visit: Yes Qualifiers: Coronary Disease-Associated Artery/Lesion type: [place] artery [place] vs. transplanted heart: [place] heart Associated angina: without angina Qualified Code(s): I25.10 - Atherosclerotic heart disease of [place] coronary artery without angina pectoris (5) Diabetes mellitus Status: Chronic Current Visit: Yes Qualifiers: Diabetes mellitus type: type 2 Chronic kidney disease stage: stage 3 ( moderate) (6) Hypertension Status: Chronic Current Visit: Yes Qualifiers: Hypertension type: essential hypertension Qualified Code(s): I10 - Essential (primary) hypertension (7) Severe aortic stenosis Status: Chronic Current Visit: Yes (8) Bradycardia Status: Resolved Current Visit: Yes Specialty Discharge - Follow Up or Referrals
[2016-10-10] MEDS: ATORVASTATIN 80 MG TABLET PO SCH (22:45)
[2016-10-11] MEDS: INSULIN REGULAR 100 UNIT/ML SUBCUT SCH ×3 (00:06→13:15)
[2016-10-11] MEDS: INSULIN GLARGINE 100 UNIT/ML SUBCUT SCH (00:07)
[2016-10-11] MEDS: IPRATROPIUM 500 MCG/2.5 ML NEB RESP TX SCH ×2 (01:23→07:19)
[2016-10-11 04:05] LABS: Basophils % 0.2 % (0.0-0.8); Eosinophils # 0.1 10*3/uL (0.0-0.87); Eosinophils % 1.1 % (0.00-10.9); Hematocrit 28.6 VOL% (42.0-52.0); Hemoglobin 9.6 GM/DL (14.0-18.0); Immature Granulocytes % 0.7 %; Immature Granulocytes Absolute 0.07 #; Lymphocytes # 1.2 10*3/uL (1.4-4.0); Lymphocytes % 12.3 % (21.2-54.2); Mean Corpuscular HGB Conc 33.6 GM/DL (32-36); Mean Corpuscular Hemoglobin 29 PG (27-34); Mean Corpuscular Volume 86.7 FL (87-102); Mean Platelet Volume 10.6 FL (9.6-12.0); Monocytes % 10.3 % (1.7-12.7); Neutrophils # 7.4 10*3/uL (1.4-7.4); Neutrophils % 75.4 % (38.7-73.9); Platelet Count 102 T/CUMM (130-400); Red Cell Distribution Width 16.4 % (9.3-17.3); White Blood Count 9.8 T/CUMM (4-12)
[2016-10-11 04:35] LABS: Calcium 8.2 MG/DL (8.5-10.1); Magnesium 2.4 MG/DL (1.8-2.4); Osmolality,Calculated 300.4 MOS/KG (273-304); Potassium 3.3 MMOL/L (3.5-5.1)
[2016-10-11 04:37] LABS: Anisocytosis 1+; Platelet Estimate Adequate
[2016-10-11 04:40] LABS: Albumin 2.3 G/DL (3.4-5.0); Bilirubin,Total 1.5 MG/DL (0.2-1.0); Calcium 8.2 MG/DL (8.5-10.1); Osmolality,Calculated 300.4 MOS/KG (273-304); Potassium 3.2 MMOL/L (3.5-5.1); Total Protein 5.1 G/DL (6.4-8.3)
--- NOTE | 2016-10-11 07:55 | Pulmonology Progress Note ---
Pulmonary - PN: Subj Interval history: This 86-year-old white male has congestive heart failure due to aortic stenosis. Also has atherosclerotic heart disease with previous coronary bypass surgery. Needs to have his IV aortic valve replaced. He has a right pleural effusion. His chest x-ray looks a little bit better today as far as the pulmonary edema is concerned. However we gave him Lasix yesterday and his creatinine has risen a little more. I think we would do best to get the right pleural fluid drained in preparation for surgery. Will ask interventional radiology to do this since it appears to be loculated laterally and would be safely done with ultrasound guidance. Patient is not sleeping well. Should tolerate some Ativan at bedtime. Quite anxious. I should note that the reason he has pleural fluid on the right and not the left is that he has had a previous left decortication. 09/18/2016 we have tried to diurese him and it has not been very successful. His creatinine has risen. He had a right thoracentesis with removal of 800 mL of fluid but he had his CT scan yesterday still showed significant right effusion. The pleural fluid is a transudate. Certainly think this is due to congestive heart failure, due to his aortic stenosis. It will be very difficult to treat his heart failure without the valve being replaced. However he is at high risk for surgery given his fragile state and acute kidney injury with Lasix and low cardiac output. Will ask nephrology to see if they can help us with this. Patient at present is about the same as far as her shortness of breath. He is empirically on antibiotics. 09/19/2016 he continues to complain of dyspnea. Primarily says he has trouble breathing through his nose. He is on 2 different nose sprays in his nasal passages appear open on my exam. I think is primarily short of breath related to his congestive heart failure/aortic stenosis. Renal function is a little better. Perhaps getting further out from contrast studies is helping. We do need to try to diurese him further. Nephrology is following as well. 09/20/2016 patient feels a little better sitting up in the chair. However his chest x-ray shows that the right pleural effusion has increased in size. Having a difficult time diuresing him with his creatinine 2.8. Would recommend putting a pleural catheter in the right side to drain this. Hopefully this will help us prep him for possible aortic valve replacement. The pleural effusion is due to congestive heart failure, however they are having a difficult time diuresing him. 09/21/2016 breathing is better since getting the pleural catheter. Chest x-ray today pending. Renal function getting a little better. Hopefully can plan aortic valve surgery soon. 09/22/2016 patient feels a little better. Should be able to tolerate nasal biprong's now. Chest x-ray shows the right pleural effusion has been evacuated. Put out about 200 mL from chest tube since yesterday morning. Need to keep it in for now. Renal function reports are pending from this morning. He does appear to be holding his own layer. Still has some peripheral edema and we need to bump with Lasix again. In my opinion he will need to have aortic valve surgery in order to get back to any meaningful life at home. Otherwise he will be a bed to chair existence. Certainly some risk involved as far as postoperative renal function and/or respiratory failure, but I favor proceeding with surgery next week. 09/23/2016 put out another 400 mL from his chest tube yesterday. Still has peripheral edema. We need to diurese him further. Renal insufficiency makes it difficult. Dr. Mehta wants to do a CT angiogram to further evaluate his aortic arch. His creatinine is down to 2.3. I feel sure further contrast would bump his creatinine up above 3 again and perhaps worse. I do think he would be better off having surgery then not having surgery. I do not think he can go home and come back as he still has a pleural catheter in. We may consider doing a pleurodesis, which is unusual for a transudative type effusion , and only works about half the time in this situation. 09/24/2016 his right pleural catheter came out during the night. Chest x-ray this morning shows the right lung well expanded. He does have some interstitial edema and some interstitial scarring. Creatinine has come down further to 2.1. We need to try to diurese him further. Would not replace the pleural catheter at this point. 09/25/2016 patient needs to be more active. Creatinine is come down to 1.9. Plans are for a CT angiogram of the chest tomorrow. Will need to watch renal function closely after that. Since the CT is planned I will not order chest x- ray 09/26/2016 CT angiogram was canceled because creatinine was up to 2.1. Defer to nephrology, cardiovascular surgery, and radiology on plans there. His chest x- ray shows recurrence of right pleural effusion. Not as much as before but still there. We are trying to diurese him as much as his kidneys will allow. He still has peripheral edema. 09/27/[address] angiogram today. Dr. Mehta to review to decide about surgery. Creatinine was 1.9 this morning. Patient had episode of increased dyspnea last night. Did get better with 1 mg of morphine. If he is to have surgery in the next couple of days, then the right pleural fluid could be drained at that time. If surgery is delayed for several days to follow renal function, then he should have the right pleural catheter replaced. 09/28/2016 patient feels better today. Sleeping better. Less dyspneic. Chest CT angiogram done yesterday and creatinine remains 1.9. Dr. Mehta to review the CT and make plans as far as surgery is concerned. Patient is anxious to go ahead with the surgery. 09/29/2016 patient sleeping in recliner. Dyspnea is improved. Renal function has improved with creatinine 1.7. Plans are for surgery Sunday with coronary bypass surgery of one vessel and aortic valve replacement. Pleural drainage will take care of the right effusion at that time. Stable from pulmonary standpoint. Please call pulmonary exhibition organiser this weekend if needed. 10/02/16 Pt seen in CVR, on vent. C.O. 3.6 L. PCW 25. ABG's ok. Wean per protocol. CXR OK. 10/03/2016 patient awake and responsive squeezes fingers on command. ABGs improved. Earlier attempt at CPAP this morning reveal that he had apneic episodes so it was terminated. Hopefully will be able to do CPAP get extubated this morning. His chest x-ray looks okay. Urine output has been marginal. His weight is up 6 kg from pre surgery. Agree with Lasix infusion. Need to decrease IV fluids. 10/04/2016 patient alert oriented. No air leak from right chest tube. Decreased fluid output from mediastinal tube. Oxygen saturation looks good. Patient taking oral feedings. Discussed case with Dr. Mehta. Plans are for patient to go to the floor hopefully later today. 10/05/2016 patient now on telemetry. Right chest tube is been removed. His x- ray show some slightly increased interstitial edema. Creatinine is 2.1. Probably needs to be on a daily dose of Lasix. Oxygen saturation acceptable on low flow oxygen. Will need a good bit of physical therapy. Agree with plans for cardiac rehab. 10/06/2016 patient walking in the room. Oxygen saturation 100% on 2 L. Creatinine down to 1.8. Hopefully can be discharged soon. Strongly recommend cardiac rehab post discharge. This was discussed with the patient. 10/09/2016 patient feels pretty good. He is anxious to proceed with physical therapy. He has a good bit of peripheral edema still. The right pleural effusion is back although smaller. Will add Zaroxolyn to his Lasix. Creatinine 1.9, continue to watch it closely. 10/10/2016 feeling better. Able to lie flat in the bed without getting short of breath. Still has peripheral edema and small pleural effusions. Still on anticoagulants. Creatinine 2.0. He is very weak. I think a swing bed for physical therapy may be a good idea. 10/11/2016 appear stable. Creatinine 1.8. Has done very little with physical therapy and needs a good bit more. Still has peripheral edema which is due to low serum proteins as well as pulmonary hypertension. The pulmonary hypertension is secondary to his left heart disease. Now that he has had aortic valve replacement this should gradually improve. Needs follow-up echo in a couple of months. Agree with plans for swing bed. Exam (Progress Note) - Constitutional Vitals: Period Temp Pulse Resp BP Sys/H[place]ado Pulse Ox Last 24 Hr 97.5 F-99.7 F 79-95 16-79 111-131/53-71 91-100 Exam: Patient's responsive, comfortable flat in bed. O2 sat 100% on 2 L. Pupils react to light. Neck supple no bruits. Chest shows Dullness at right base to percussion. Heart normal rate rhythm grade 1/6 systolic murmur at right base. Sternal wound looks clean. Abdomen soft nontender no masses. Bowel sounds present. Extremities no clubbing or cyanosis. 1-2+ edema, arms and legs. Calves nontender. Results - Labs CBC & BMP: 10/11/16 02:35 06/28/17 02:35 Lab Results: I have reviewed the past 24 hour labs Assessment and Plan (1) Syncope Status: Acute Assessment and plan: Syncope likely due to cardiac causes related to his aortic stenosis. 09/15/16 likely due to his aortic stenosis. 09/18/2016 again the syncope is likely due to his aortic stenosis. 09/20/2016 no symptoms of postural syncope at this time 10/03/2016 syncope was what led to his admission with the finding of severe aortic stenosis Current Visit: Yes (2) Chronic kidney disease Status: Chronic Assessment and plan: Creatinine is 2.1. He has had some renal insufficiency for quite some time related to vascular disease and diabetes. At present I think he is ahead on fluid. I will bump him with Lasix. 09/15/16 creatinine up to 2.3 after a dose of Lasix. Afraid to diurese any more vigorously at present. Asking interventional radiology to drain the loculated right effusion. This should help getting prepped for aortic valve replacement. 09/18/2016 creatinine up to 2.8. Difficulty mobilizing right pleural effusion fluid 09/19/2016 renal function is a little better today. Creatinine down to 2.4. May have had a bump in creatinine related to his contrast last week. 09/20/2016 creatinine up to 2.8. 09/21/2016 creatinine down to 2.5. Improving. Hopefully getting further out from contrast 09/22/2016 chemistries pending today. Hopefully can get creatinine back down to around 2. 09/23/2016 creatinine down to 2.3. This despite giving diuretics. 09/24/2016 creatinine down to 2.1. 09/25/2016 creatinine down to 1.9. This is about baseline for him. 09/26/2016 creatinine 2.1 today. Nephrology following. 09/27/2016 renal function about baseline for him at 1.9 creatinine. Likely will see a rise over the next couple of days due to the contrast today. 09/28/2016 creatinine 1.9 and appear stable despite getting repeat contrast yesterday 09/29/2016 creatinine down to 1.7 despite contrast and diuretics. 10/02/16 Renal function intact now. Cr 1.5 this AM. 10/03/2016 creatinine 1.9. Urine output down to about 20-25 cc an hour. Weight up 6 kg. Agree with Lasix infusion. 10/04/2016 creatinine 2.1 and urine output pretty good on Lasix infusion. Agree with change to intermittent Lasix. 10/05/2016 creatinine 2.1. Needs IV Lasix on a daily basis. 10/06/2016 renal function improved. Creatinine 1.8. 10/09/2016 renal function stable with creatinine 1.9. Has low serum albumin leading to edema. 10/10/2016 creatinine 2.0. This is fairly stable 10/11/2016 creatinine 1.8. Again this is stable. Current Visit: Yes Qualifiers: Chronic kidney disease stage: stage 3 (moderate) Qualified Code(s): N18.3 - Chronic kidney disease, stage 3 (moderate) (3) Coronary artery disease Status: Chronic Assessment and plan: Previous coronary bypass surgery with additional findings at catheterization this admission. 09/25/2016 patient not having any active angina. 09/28/2016 previous coronary bypass surgery. 09/29/1969 will have 1 of coronary bypass is redone. 10/02/16 Had patch bovine graft of one of previous CABG vein grafts. 10/03/2016 status post redo coronary bypass with patch graft. 10/06/2016 status post repair with patch graft. 10/06/2016 status post repair with patch graft. No angina. Current Visit: Yes Qualifiers: Coronary Disease-Associated Artery/Lesion type: [place] artery [place] vs. transplanted heart: [place] heart Associated angina: without angina Qualified Code(s): I25.10 - Atherosclerotic heart disease of [place] coronary artery without angina pectoris (4) Pulmonary hypertension Status: Chronic Assessment and plan: This was not quantified on the echo but is likely to be secondary to his left heart disease with aortic stenosis. 09/15/16 this should be due to his aortic stenosis and congestive heart failure. 09/18/2016 secondary to his left heart disease. 09/20/2016 this is due to his left heart disease. 09/21/2016 due to left heart disease. 09/22/2016 this is secondary to his left heart disease, primarily aortic stenosis 09/23/2016 this is secondary to his aortic stenosis. 09/24/2016 secondary to left heart disease. 09/27/2016 again this is felt to be secondary to his left heart disease primarily aortic stenosis 09/28/2016 apparently due to left heart disease/aortic stenosis 09/29/2016 again this is due to left heart disease. 10/02/16 PA pressures lower since AVR. 10/03/2016 systolic PA pressure in the mid 30s. Continues to improve. 10/04/2016 [place]-Nika catheter to be removed today. PA diastolic around 20. 10/05/2016 when his PA line was in place it demonstrated that the peak pulmonary artery pressure had come down as a result of surgery. 10/06/2016 this is due to left heart disease. No specific treatment indicated. 10/09/2016 this is due to left heart disease primarily aortic stenosis. Hopefully we will see improvement with this over time now that he said his aortic valve replaced. However he still has peripheral edema. 10/10/2016 probably would be a good idea to recheck echo after about 3 months post AVR. I expect the pulmonary hypertension will get somewhat better 10/11/2016 this should gradually come down now that aortic stenosis has been relieved. Current Visit: Yes (5) Severe aortic stenosis Status: Chronic Assessment and plan: Has severe aortic stenosis by echo and catheterization. Likely the possible cause of his congestive heart failure and pulmonary hypertension. 09/15/16 hopefully can have surgery when we get him tuned up. 09/18/2016 will need surgery if he can tolerate it. 09/19/2016 hopefully we can get him tuned up where he can tolerate AVR. 09/20/2016 aortic valve surgery is indicated when we can get him tuned up for it. 09/21/2016 need surgery. Trying to get him tuned up for that. If renal function is stable and right pleural effusion totally evacuated, then hopefully could plan sign. 09/22/2016 x-ray is better. Less dyspnea. If renal function is stable, I would be in favor of proceeding with surgery next week. 09/23/16 ideally should be repaired surgically or replaced. He has some chronic bronchitis but does not have severe COPD. 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 09/24/2016 again trying to tune him up so he can have his aortic valve replaced or repaired. 09/25/2016 trying to get him to the point where he can have his aortic valve replaced or repaired. Needs more physical activity. 09/26/2016 continuing to try to get him where he can tolerate aortic valve surgery. 09/27/[address] done this morning for Dr. Mehta to review. 09/28/2016 Dr. Mehta to review CT and decide whether to proceed with aortic valve replacement or repair 09/29/2016 this has become severe and is causing congestive heart failure. Has well-maintained LV ejection fraction. Set up for surgery Sunday to replace the valve 10/02/16 Post AVR. Weaning from vent will take overnight probably. 10/03/2016 status post aortic valve replacement. Cardiac output is better. Pulmonary capillary wedge pressure still in the low 20s. Diuresing 10/04/2016 status post aVR. 10/05/2016 status post AVR. Seems to be functioning well. 10/06/2016 status post repair. Valve appears to be working well. 10/09/2016 status post repair again no problems apparent with the valve 10/11/2016 status post AVR. Appears to be functioning well. Current Visit: Yes (6) Diabetes mellitus Status: Chronic Assessment and plan: Has some hyperglycemia. Adding sliding scale. 09/15/16 glucoses in the 140-200 range. 09/18/2016 glucoses look okay. 09/19/2016 glucoses are fairly well controlled. 09/20/2016 glucoses look better. 09/21/2016 still mildly elevated glucoses. 09/22/2016 glucoses fairly well controlled. 09/23/2016 blood sugars are okay. 09/24/2016 glucoses are a little high. Adjust insulin, increase Lantus to 15 units. 09/25/2016 glucoses a little better. 09/26/2016 blood sugars are acceptable. 09/27/2016 blood sugars running in the 85-90 range. 09/28/2016 glucoses well controlled. 09/29/2016 blood sugars fairly well controlled. 10/02/16 Glucoses stable on SS insulin. 10/03/2016 glucoses very well controlled 10/04/2016 glucoses well controlled 10/05/2016 glucoses elevated. He is off the infusion. I am resuming before meals and at bedtime sliding scale. 10/06/2016 glucoses fairly well controlled. May need some Lantus insulin before going home 10/09/2016 glucoses running 200-225. Will add Lantus tonight 10/10/2016 started on Lantus last night. Getting diabetic training. Additional time at a swing bed may help this as well. 10/11/2016 glucoses still a little high. Will increase Lantus just a little. Patient will need diabetic training here and/or at swing bed. Current Visit: Yes Qualifiers: Diabetes mellitus type: type 2 Chronic kidney disease stage: stage 3 ( moderate) (7) Acute bronchitis Status: Resolved Assessment and plan: Based on the change in sputum color and elevated white count 16,000 think is reasonable to cover him with antibiotics for this. Will use Atrovent for bronchodilators. 09/15/16 empirically on antibiotics and Atrovent. I think his main problem respiratory escobar is congestive heart failure related to his aortic stenosis. Would not delay surgery for bronchitis in this situation 09/18/2016 on empiric antibiotics. 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 It is sensitive to Cipro. I will change him to oral Cipro. 09/20/2016 I do not hear any rhonchi. He is on oral Cipro. 09/21/2016 bronchitis is improved. Probably needs a couple more days of Cipro. 09/22/2016 he has had a week's worth of antibiotics. Bronchitis is quiet now. We will stop Cipro. 09/23/2016 he has completed antibiotics. 09/25/2016 he is not coughing at present. 10/05/2016 this has resolved. Current Visit: Yes Specialty Discharge - Follow Up or Referrals
[2016-10-11] MEDS ORDERED: INSULIN GLARGINE 100 UNIT/ML SUBCUT SCH (07:57)
[2016-10-11] MEDS: PANTOPRAZOLE 40 MG TABLET PO SCH (08:36)
[2016-10-11] MEDS: metOLazone 2.5 MG TABLET PO SCH (08:37)
[2016-10-11] MEDS: DOCUSATE SODIUM 100 MG CAPSULE PO SCH ×2 (08:37→08:50)
[2016-10-11] MEDS: METOPROLOL SUCCINATE XL 50 MG TABLET PO SCH (08:37)
[2016-10-11] MEDS: ASPIRIN EC 325 MG TABLET PO SCH (08:37)
[2016-10-11] MEDS: FUROSEMIDE 40 MG TABLET PO SCH (08:37)
[2016-10-11] MEDS: FERROUS SULFATE 325 MG TABLET PO SCH (08:37)
[2016-10-11] MEDS: MUPIROCIN 2% OINT 22 GM TUBE TOP SCH (08:38)
[2016-10-11] MEDS: POTASSIUM CHLORIDE 20 MEQ TABLET PO PRN ×3 (08:38→10:28)
[2016-10-11] MEDS: CHLORHEXIDINE 0.12% ORAL RINSE 60 ML BOTTLE SWISH/SPIT SCH (08:38)
[2016-10-11] MEDS: DESITIN 4OZ/NYSTATIN 15 GRAM MIXTURE PASTE TOP SCH (08:38)
--- NOTE | 2016-10-11 09:54 | Cardiology Progress Note ---
Cardiology - PN: Subj Interval history: Cardiology note Frustrated by prolonged hospitalization. Feels weak. No temperature. Appetite good. O2 sat 97 on 2 L Blood pressure 130/66 Regular rhythm with systolic ejection murmur as before no AI. Incision looks good. 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 with normal preop EF Status post three-vessel CABG 2002 Recent cardiac cath showed patent SINGH graft to LAD, occluded vein graft to right coronary, and only moderate disease in the kenaitze circumflex Mild chronic renal insufficiency Anemia status post 2 unit transfusion yesterday Debility One stool heme positive Plan Eliquis stopped yesterday Protonix Echo Doppler to assess aortic valve prosthesis Swing bed BMP H&H in a.m. Exam (Progress Note) - Constitutional Vitals: Period Temp Pulse Resp BP Sys/Hurtado Pulse Ox Last 24 Hr 97.5 F-99.7 F 79-95 16-79 111-131/53-71 91-100 Result/EKG - Labs CBC & BMP: 10/11/16 02:35 10/11/16 02:35 Labs: Laboratory Results - last 24 hr 10/10/16 10/10/16 10/10/16 05:02 11:30 15:41 WBC RBC Hgb Hct MCV MCH MCHC RDW Plt Count MPV Neut % (Auto) Lymph % (Auto) [place] % (Auto) Eos % (Auto) Baso % (Auto) Neut # (Auto) Lymph # (Auto) [place] # (Auto) Eos # (Auto) Baso # (Auto) Immature Gran % Nucleated RBC % Immature Gran # Nucleated RBCs # Platelet Estimate Anisocytosis Sodium Potassium Chloride Carbon Dioxide Anion Gap BUN Creatinine GFR Calculation BUN/Creatinine Ratio Glucose POC Glucose 306 H 244 H Calculated Osmolality Calcium Magnesium Total Bilirubin AST ALT Alkaline Phosphatase Total Protein Albumin Globulin Albumin/Globulin Ratio Blood Type O POSITIVE Antibody Screen Negative Crossmatch See Detail 10/10/16 10/10/16 10/11/16 20:12 21:41 02:35 WBC 9.8 RBC 3.30 L D Hgb 9.5 L D 9.6 L Hct 28.5 L 28.6 L MCV 86.7 L MCH 29 MCHC 33.6 RDW 16.4 Plt Count 102 L MPV 10.6 Neut % (Auto) 75.4 H Lymph % (Auto) 12.3 L [place] % (Auto) 10.3 Eos % (Auto) 1.1 Baso % (Auto) 0.2 Neut # (Auto) 7.4 Lymph # (Auto) 1.2 L [place] # (Auto) 1.0 H Eos # (Auto) 0.1 Baso # (Auto) 0.0 Immature Gran % 0.7 Nucleated RBC % 0.0 Immature Gran # 0.07 Nucleated RBCs # 0.00 Platelet Estimate Adequate Anisocytosis 1+ Sodium Potassium Chloride Carbon Dioxide Anion Gap BUN Creatinine GFR Calculation BUN/Creatinine Ratio Glucose POC Glucose 92 Calculated Osmolality Calcium Magnesium Total Bilirubin AST ALT Alkaline Phosphatase Total Protein Albumin Globulin Albumin/Globulin Ratio Blood Type Antibody Screen Crossmatch 10/11/16 10/11/16 10/11/16 02:35 02:35 07:20 WBC RBC Hgb Hct MCV MCH MCHC RDW Plt Count MPV Neut % (Auto) Lymph % (Auto) [place] % (Auto) Eos % (Auto) Baso % (Auto) Neut # (Auto) Lymph # (Auto) [place] # (Auto) Eos # (Auto) Baso # (Auto) Immature Gran % Nucleated RBC % Immature Gran # Nucleated RBCs # Platelet Estimate Anisocytosis Sodium 140 140 Potassium 3.3 L 3.2 L Chloride 99 100 Carbon Dioxide 31 30 Anion Gap 13.3 13.2 BUN 72 H 70 H Creatinine 1.80 H 1.80 H GFR Calculation 37 37 BUN/Creatinine Ratio 40.00 H 38.00 H Glucose 121 H 119 H POC Glucose 146 H Calculated Osmolality 300.4 300.4 Calcium 8.2 L 8.2 L Magnesium 2.4 Total Bilirubin 1.50 H AST 31 ALT 24 Alkaline Phosphatase 92 Total Protein 5.1 L Albumin 2.3 L Globulin 2.8 Albumin/Globulin Ratio 0.8 L Blood Type Antibody Screen Crossmatch Quality Measures - VTE Contraindication to Pharmacological VTE Prophylaxis: High Risk of Bleeding - Stroke Onset of Symptoms Date: 09/05/16 Onset of Symptoms Time: 15:30 Symptom Onset Unknown: No Specialty Discharge - Follow Up or Referrals
--- NOTE | 2016-10-11 10:19 | Discharge Summary ---
Hospital Course - Hospital Course Hospital Course: History of present illness: Patient is an 86-year-old man who had undergone coronary bypass surgery about 22 years ago. At that time he had an internal mammary graft to the anterior descending coronary artery saphenous vein graft to the right and circumflex marginal coronary arteries. He done reasonably well but had recently been having increasing trouble with COPD and breathing difficulty as well as with renal insufficiency. He has a creatinine which chronically runs between 2 and 2.5. He presents now with symptoms of increasing dizziness and shortness of breath with some chest discomfort. He was admitted for evaluation and treatment. Past medical history is largely significant for previous coronary bypass surgery and for history of chronic renal insufficiency and COPD. Remainder of his family history social history and review of systems as documented in his admission note. Hospital course: Patient underwent cardiac catheterization demonstrating severe aortic stenosis and patency of an internal mammary graft and patency of the saphenous vein graft to the obtuse marginal coronary artery with an ostial stenosis. The graft to the right coronary artery was occluded but the main right coronary artery does not show significant obstruction at this time. The patient had significant heart failure symptoms and right pleural effusion which was drained preoperatively. He continued to run a creatinine between 2 and 2.5. He was advised to have surgery and the patient did agree although he understood relatively high risks involved. He did undergo surgery with a severely stenotic aortic valve replacement with a pericardial prosthesis. And he underwent pericardial patch angioplasty of the ostium of the left aorto coronary bypass to the obtuse marginal coronary artery. Patient actually tolerated the procedure well and his postoperative course was relatively uncomplicated except for a brief period of atrial fibrillation which was controlled with amiodarone. He did remain weak and had trouble ambulating without assistance but at the time of transfer to a swing bed he was able to ambulate with a walker and minimal assistance. We feel that he will probably need assisted care for at least 2-3 weeks. Discharge medications are listed below. Specialty Discharge - Follow Up or Referrals Follow up with: Thaddeus Mehta MD [Physician] - 1 Month Discharge Plan - Discharge Data Disposition: Swing Bed, [facility], [facility] Condition at Discharge: Stable Discharge Diet: advance to your usual diet Activity: resume usual activities as tolerated Hygiene: no restrictions Weight Bearing at Discharge: full weight bearing Driving: not until seen by doctor - Discharge Medications New Alum/Mag/Simeth Max Str Liquid [Mylanta Max Strength Liquid] 30 ml PO Q4H PRN PRN Reason: Dyspepsia Furosemide Tab [Lasix Tab] 40 mg PO BID DIURETIC tablet metOLazone [Zaroxolyn] 2.5 mg PO DAILY tablet Potassium Chloride Cap/Tab [K Dur] 20 meq PO .PER PROTOCOL PRN tablet PRN Reason: Per Protocol Acetaminophen Tab [Tylenol Tab] 650 mg PO Q4H PRN tablet PRN Reason: Temperature greater than 100F Aspirin EC Tab 325 mg PO DAILY tablet Atorvastatin [Lipitor] 80 mg PO BEDTIME tablet Docusate Sodium Cap [Colace Cap] 100 mg PO DAILY capsule Ferrous Sulfate Tab [Feosol Original Tab] 325 mg PO DAILY tablet Glucagon 1 mg IM PRN PRN vial PRN Reason: Hypoglycemia w/o IV access Insulin Glargine [Lantus] 12 unit SUBCUT BEDTIME unit Insulin Regular [HumuLIN R] See Protocol SUBCUT ACHS unit Ipratropium Neb [Atrovent Neb] 500 mcg RESP TX RT Q6H Magnesium Hydroxide Susp [Milk of Magnesia] 30 ml PO Q6H PRN PRN Reason: Constipation Magnesium Sulf Tin [Magnesium Sulfate Inj] 2 gm IV .PER PROTOCOL PRN PRN Reason: Per Protocol Magnesium Sulf Tin [Magnesium Sulfate Inj] 4 gm IV .PER PROTOCOL PRN PRN Reason: Per Protocol Metoprolol Succinate Xl [Toprol Xl] 50 mg PO DAILY tablet Mupirocin 2% Oint [Bactroban 2% Oint] 1 applic TOP BID applic Ondansetron Inj [Zofran Inj] 4 mg IV Q4H PRN vial PRN Reason: Nausea/Vomiting Pantoprazole Tab [Protonix Tab] 40 mg PO DAILY tablet Zaleplon [Sonata] 5 mg PO BEDTIME PRN capsule PRN Reason: Sleep Continue metOLazone [Metolazone] 2.5 mg PO QOTHER DAY glyBURIDE MICRONIZED [Glynase] 6 mg PO BID W/MEALS Aspirin EC Tab 325 mg PO DAILY Glimepiride 4 mg PO BID Niacin (Inositol Niacinate) [Niacin 500 mg Capsule] 500 mg PO DAILY Loratadine Tab [Claritin Tab] 10 mg PO DAILY PRN PRN Reason: Allergy Symptoms Discontinued Simvastatin 80 mg PO AC SUPPER NIFEdipine [Nifedipine ER] 30 mg PO DAILY Metoprolol Succinate 25 mg PO BID cloNIDine HCl [Clonidine HCl] 0.2 mg PO BID Furosemide [Furosemide] 40 mg PO DAILY - Follow Up or Referral - Forms/Instructions Instructions: Aortic Valve Replacement (DC), Methicillin Resistant Staphylococcus Aureus (DC), Heart Healthy Diet (GEN), Coronary Artery Bypass Graft, Supervisor Last Model Department (GEN), Sternal Precautions, Supervisor Last Model Department (GEN) Exam - Constitutional Vitals: Period Temp Pulse Resp BP Sys/Hurtado Pulse Ox Last 24 Hr 97.5 F-99.7 F 79-95 16-79 111-131/53-71 91-100 Discharge Results Procedures and tests throughout hospitalization: Pending Orders 09/15/16 10:00 AFB Culture/Smears Routine 10/01/16 03:42 Cryoprecipitate Routine Fresh Frozen Plasma IN AM Red Blood Cells Leuko Red IN AM Single Donor Platelets IN AM Type and Screen Routine 10/10/16 Occult Blood, Stool Routine 10/12/16 04:00 BMP w/ Mg [Basic Metabolic Panel w/Mg] IN AM Basic Metabolic Panel IN AM Comp Blood Count Auto Diff IN AM Comp Blood Count Auto Diff IN AM Labs on day of discharge: Labs from last 24 hours 10/11/16 10/11/16 10/11/16 07:20 02:35 02:35 WBC RBC Hgb Hct MCV MCH MCHC RDW Plt Count MPV Neut % (Auto) Lymph % (Auto) [place] % (Auto) Eos % (Auto) Baso % (Auto) Neut # (Auto) Lymph # (Auto) [place] # (Auto) Eos # (Auto) Baso # (Auto) Immature Gran % Nucleated RBC % Immature Gran # Nucleated RBCs # Platelet Estimate Anisocytosis Sodium 140 140 Potassium 3.2 L 3.3 L Chloride 100 99 Carbon Dioxide 30 31 Anion Gap 13.2 13.3 BUN 70 H 72 H Creatinine 1.80 H 1.80 H GFR Calculation 37 37 BUN/Creatinine Ratio 38.00 H 40.00 H Glucose 119 H 121 H POC Glucose 146 H Calculated Osmolality 300.4 300.4 Calcium 8.2 L 8.2 L Magnesium 2.4 Total Bilirubin 1.50 H AST 31 ALT 24 Alkaline Phosphatase 92 Total Protein 5.1 L Albumin 2.3 L Globulin 2.8 Albumin/Globulin Ratio 0.8 L Blood Type Antibody Screen Crossmatch 10/11/16 10/10/16 10/10/16 02:35 21:41 20:12 WBC 9.8 RBC 3.30 L D Hgb 9.6 L 9.5 L D Hct 28.6 L 28.5 L MCV 86.7 L MCH 29 MCHC 33.6 RDW 16.4 Plt Count 102 L MPV 10.6 Neut % (Auto) 75.4 H Lymph % (Auto) 12.3 L [place] % (Auto) 10.3 Eos % (Auto) 1.1 Baso % (Auto) 0.2 Neut # (Auto) 7.4 Lymph # (Auto) 1.2 L [place] # (Auto) 1.0 H Eos # (Auto) 0.1 Baso # (Auto) 0.0 Immature Gran % 0.7 Nucleated RBC % 0.0 Immature Gran # 0.07 Nucleated RBCs # 0.00 Platelet Estimate Adequate Anisocytosis 1+ Sodium Potassium Chloride Carbon Dioxide Anion Gap BUN Creatinine GFR Calculation BUN/Creatinine Ratio Glucose POC Glucose 92 Calculated Osmolality Calcium Magnesium Total Bilirubin AST ALT Alkaline Phosphatase Total Protein Albumin Globulin Albumin/Globulin Ratio Blood Type Antibody Screen Crossmatch 10/10/16 10/10/16 10/10/16 15:41 11:30 05:02 WBC RBC Hgb Hct MCV MCH MCHC RDW Plt Count MPV Neut % (Auto) Lymph % (Auto) [place] % (Auto) Eos % (Auto) Baso % (Auto) Neut # (Auto) Lymph # (Auto) [place] # (Auto) Eos # (Auto) Baso # (Auto) Immature Gran % Nucleated RBC % Immature Gran # Nucleated RBCs # Platelet Estimate Anisocytosis Sodium Potassium Chloride Carbon Dioxide Anion Gap BUN Creatinine GFR Calculation BUN/Creatinine Ratio Glucose POC Glucose 244 H 306 H Calculated Osmolality Calcium Magnesium Total Bilirubin AST ALT Alkaline Phosphatase Total Protein Albumin Globulin Albumin/Globulin Ratio Blood Type O POSITIVE Antibody Screen Negative Crossmatch See Detail Preliminary micro results at discharge 09/15/16 10:00 Mycobacterial Culture - Preliminary Pleural Fluid No AFB isolated at 4 weeks DS: Provider Date of admission: 09/06/16 13:01 Primary care physician: . No PCP Attending physician on admission: Luis Tay MD Consults: 09/07/16 16:06 Consult to Diabetes Center, Educator [CONS] Routine Reason for Electrolytic Etcher: Initial Insulin Education 09/12/16 13:32 Consult to Dietitian [CONS] Routine Reason for Dietitian: Dietary Consult Supplements and/or Snacks Diet Recommendations Consult Comment: send Ensure with each meal 09/29/16 06:24 Consult to Dietitian [CONS] Routine Reason for Dietitian: Other Consult Comment: low salt, low cholesterol, diet 10/04/16 13:31 Consult to Cardiac Rehabilitation [CONS] Routine Reason for Cardiac Rehabilitation: Other Consult Comment: Post CABG/heart surgery Consult to Diabetes Center, Educator [CONS] Routine Reason for Electrolytic Etcher: Diabetes Education Initial Insulin Education Consult Comment: insulin education Consult to Dietitian [CONS] Routine Reason for Dietitian: Dietary Consult Consult Comment: Cardiac, low salt, low cholesterol diet Consult to Physical Therapy [CONS] Routine Reason for Physical Therapy: Other Consult Comment: CV Rehab Consult to Physician [CONS] Routine Comment: Management of diabetes Consulting Provider: Consult to Specialist Group: Hospitalist 10/09/16 07:49 Consult to Diabetes Center, Educator [CONS] Routine Reason for Electrolytic Etcher: Diabetes Education 10/09/16 10:28 Consult to Physical Therapy [CONS] Routine Reason for Physical Therapy: Other Consult Comment: walker with wheels for home use at discharge. Discharging clinician: Thaddeus Mehta MD Expected date of discharge: 10/11/16
[2016-10-11 11:54] VITALS: BP 149/69
--- NOTE | 2016-10-11 15:57 | ECHO Report ---
Kevin Frazier Exam Date: 10/11/2016 11:45 Referring Physician: Technologist: Fior Falk RDCS Age: 86 Ht (in): 68 Wt (lb): 170 Gender: M Exam Location: [facility] Echo Indications: Assess aortic valve prosthesis BP: 131 / 61 HR: 85 Rhythm: Other Technical Quality: Fair IMPRESSIONS EF 50-55 %, septal hypokinesis .Grade II/IV diastolic dysfunction, moderately elevated filling pressures. The right ventricle is normal in size and function. The right atrium is mildly enlarged. Moderately increased left atrial size. Morphologically normal mitral valve. Trace mitral valve regurgitation. Well seated pericardial tissue AV prosthesis. Peak gradient 16 mmHG. Trace aortic valve regurgitation. Severe tricuspid valve regurgitation. MBm99-81 mmHG. Trace pulmonary valve regurgitation. Normal pericardium without effusion. Normal ascending aorta dimension. MEASUREMENTS (Male / Female) Normal Values 2D ECHO LV Diastolic Diameter PLAX 3.6 cm 4.2 - 5.9 / 3.9 - 5.3 cm LV Systolic Diameter PLAX 1.8 cm LV Fractional Shortening PLAX 49.3 % IVS Diastolic Thickness 1.3 cm 0.6 - 1.0 / 0.6 - 0.9 cm LVPW Diastolic Thickness 1.3 cm 0.6 - 1.0 / 0.6 - 0.9 cm RV Internal Dim ED PLAX 3.5 cm Aortic Root Diameter 3.0 cm LA Systolic Diameter LX 4.5 cm 3.0 - 4.0 / 2.7 - 3.8 cm DOPPLER TR Peak Velocity 396.0 cm/s TR Peak Gradient 62.7 mmHg FINDINGS Left Ventricle EF 50-55 %, septal hypokinesis .Grade II/IV diastolic dysfunction, moderately elevated filling pressures. Right Ventricle The right ventricle is normal in size and function. Right Atrium The right atrium is mildly enlarged. Left Atrium Moderately increased left atrial size. Mitral Valve Morphologically normal mitral valve. Trace mitral valve regurgitation. Aortic Valve Well seated pericardial tissue AV prosthesis.Peak gradient 16 mmHG.trace aortic valve regurgitation. Tricuspid Valve Morphologically normal tricuspid valve. Severe tricuspid valve regurgitation. HIn69-87 mmHG. Pulmonic Valve Morphologically normal pulmonic valve. Trace pulmonary valve regurgitation. Pericardium Normal pericardium without effusion. Aorta Normal ascending aorta dimension. Everette Diamond (Electronically Signed) Final Date: 11 October 2016 15:56
--- NOTE | 2016-10-11 20:47 | Nephrology Progress Note ---
Nephrology - PN: Subj Interval history: No shortness of breath at rest. No chest pain. Exam (PN)-Nephrology - Vital Signs Vital signs: Period Temp Pulse Resp BP Sys/Hurtado Pulse Ox Last 24 Hr 98.0 F-98.3 F 79-85 16-79 124-149/56-69 94-100 Exam: ENT: Normal Cardiovascular: Regular rate and rhythm. No murmur rub or gallop Lungs: Clear Extremities: 1-2+ edema - Lab 10/11/16 02:35 10/11/16 02:35 Most recent lab results ABG pH 7.393 (7.35-7.45) 10/03/16 11:33 ABG pCO2 45.9 MM HG (35-48) 10/03/16 11:33 ABG pO2 145.2 MM HG (80-95) H 10/03/16 11:33 ABG HCO3 27.3 MMOL/L (20-26) H 10/03/16 11:33 ABG O2 Saturation 98.5 % (95-100) 10/03/16 11:33 Calcium 8.2 MG/DL (8.5-10.1) L 10/11/16 02:35 Magnesium 2.4 MG/DL (1.8-2.4) 10/11/16 02:35 Assessment and Plan (1) Acute on chronic renal failure Status: Acute Assessment and plan: 86-year-old man with: * CRF stage III. Renal function stable. * Aortic stenosis. Status post valve replacement * CAD. * Diabetes mellitus * Hypertension * Anemia. (2) Near syncope Status: Acute (3) Pleural effusion Status: Acute (4) Coronary artery disease Status: Chronic Qualifiers: Coronary Disease-Associated Artery/Lesion type: [place] artery [place] vs. transplanted heart: [place] heart Associated angina: without angina Qualified Code(s): I25.10 - Atherosclerotic heart disease of [place] coronary artery without angina pectoris (5) Diabetes mellitus Status: Chronic Qualifiers: Diabetes mellitus type: type 2 Chronic kidney disease stage: stage 3 ( moderate) (6) Hypertension Status: Chronic Qualifiers: Hypertension type: essential hypertension Qualified Code(s): I10 - Essential (primary) hypertension (7) Severe aortic stenosis Status: Chronic Specialty Discharge - Follow Up or Referrals Follow up with: Thaddeus Mehta MD [Physician] - 10/31/16 10:00 am
== END 2016-10-11 13:27 | DRG 216 ==
LOC: N.ED 10:36 → SUATTDRO 13:01 → N.EDINP 13:01 → N.2E 16:14 → N.TELEN 17:06 → N.CVR 10-02 12:21 → N.ICU 10-03 19:36 → N.TELES 10-04 16:44
PROVIDERS: ADMIT Internal Medicine; ATTEND Internal Medicine Cardiovascular Disease
PROC: CLCCHCL (ICD-10-PCS; 2016-09-13 11:15)
PROC: IRTHORA (2016-09-15 09:55)

== ENCOUNTER 2017-03-30 05:46 | Inpatient (IN) ==
[2017-03-30 06:59] LABS: Basophils % 0.2 % (0.0-0.8); Eosinophils # 0.1 10*3/uL (0.0-0.87); Eosinophils % 0.7 % (0.00-10.9); Hematocrit 39.2 VOL% (42.0-52.0); Hemoglobin 13.7 GM/DL (14.0-18.0); Immature Granulocytes % 0.4 %; Immature Granulocytes Absolute 0.05 #; Lymphocytes # 1.1 10*3/uL (1.4-4.0); Lymphocytes % 7.8 % (21.2-54.2); Mean Corpuscular HGB Conc 34.9 GM/DL (32-36); Mean Corpuscular Hemoglobin 31 PG (27-34); Mean Corpuscular Volume 89.5 FL (87-102); Mean Platelet Volume 10.3 FL (9.6-12.0); Monocytes # 0.9 10*3/uL (0.11-0.8); Monocytes % 6.9 % (1.7-12.7); Neutrophils # 11.5 10*3/uL (1.4-7.4); Platelet Count 122 T/CUMM (130-400); Red Blood Count 4.38 MC/CUMM (3.8-5.5); Red Cell Distribution Width 13.8 % (9.3-17.3); White Blood Count 13.6 T/CUMM (4-12)
[2017-03-30 07:14] LABS: Calcium 9.4 MG/DL (8.5-10.1); Magnesium 2.2 MG/DL (1.8-2.4); Osmolality,Calculated 290.7 MOS/KG (273-304); Potassium 4.6 MMOL/L (3.5-5.1)
[2017-03-30 07:15] LABS: PT Patient Result 10.9 SECS
[2017-03-30] MEDS ORDERED: DEXTROSE 50% 25 GM/50 ML SYRINGE IV ONE (07:16)
[2017-03-30 07:18] LABS: Amylase 159 U/L (25-115); Troponin I Only < 0.015 NG/ML (0.00-0.045)
[2017-03-30] MEDS ORDERED: ONDANSETRON 4 MG/2 ML VIAL IV STA (07:20)
[2017-03-30] MEDS ORDERED: SODIUM CHLORIDE 0.9% 1,000 ML IV STA (07:40)
[2017-03-30] MEDS ORDERED: ONDANSETRON 4 MG/2 ML VIAL ONE (07:48)
[2017-03-30 07:52] LABS: Apearance,Urine CLEAR (Clear); Bilirubin,Urine Negative (Negative); Blood, Urine Negative (Negative); Glucose,Urine (UA) Negative (Negative); Hyaline Casts,Urine 17 /LPF (0-3); Ketones,Urine Negative (Negative); Mucus,Urine Occasional /LPF (Occasional); Nitrite,Urine Negative (Negative); Protein,Urine Negative; RBC,Urine <1 /HPF (0-4); Urine Color Yellow (Yellow); Urine Specific Gravity 1.014 (1.001-1.035); Urine Urobilinogen < 2.0 EU/DL (0.2-1.0); WBC,Urine <1 /HPF (0-6)
[2017-03-30 08:21] LABS: Albumin 3.7 G/DL (3.4-5.0); Bilirubin,Direct 1.21 MG/DL (0.0-0.20); Bilirubin,Indirect 0.7 MG/DL (0.0-1.0); Bilirubin,Total 1.9 MG/DL (0.2-1.0); Total Protein 7.3 G/DL (6.4-8.3)
[2017-03-30] MEDS ORDERED: DOCUSATE SODIUM 100 MG CAPSULE PO PRN (08:46)
[2017-03-30] MEDS ORDERED: diphenhydrAMINE CAP 25 MG CAPSULE PO PRN (08:46)
[2017-03-30] MEDS ORDERED: ONDANSETRON 4 MG/2 ML VIAL IV PRN (08:46)
[2017-03-30] MEDS ORDERED: ACETAMINOPHEN 325 MG TABLET PO PRN ×2 (08:46)
[2017-03-30] MEDS ORDERED: HYDROmorphone 2 MG/1 ML VIAL IV PRN ×2 (08:46)
[2017-03-30] MEDS ORDERED: guaiFENesin/DM ER 600-30 MG TABLET PO PRN (08:46)
[2017-03-30] MEDS ORDERED: PANTOPRAZOLE 40 MG TABLET PO SCH (09:00)
[2017-03-30] MEDS ORDERED: SODIUM CHLORIDE 0.9% 1,000 ML IV SCH (09:00)
[2017-03-30] MEDS ORDERED: hydrALAZINE 20 MG/1 ML VIAL IV PRN (10:12)
[2017-03-30] MEDS ORDERED: GLUCAGON 1 MG VIAL IM PRN (10:18)
[2017-03-30] MEDS ORDERED: DEXTROSE 50% 25 GM/50 ML VIAL IV PRN (10:18)
[2017-03-30] MEDS: SODIUM CHLORIDE 0.9% 1,000 ML IV SCH ×3 (10:29→21:15)
[2017-03-30] MEDS: PANTOPRAZOLE 40 MG VIAL IV SCH (10:33)
[2017-03-30 10:35] LABS: Risk Ratio 2.84
[2017-03-30] MEDS: ENOXAPARIN 40 MG/0.4 ML SYRINGE SUBCUT SCH (10:40)
[2017-03-30] MEDS: INSULIN LISPRO 100 UNIT/ML SUBCUT SCH ×3 (11:00→21:44)
[2017-03-30] MEDS: PIPERACILLIN/TAZOBACTAM 3,375 MG in SODIUM CHLORIDE 0.9% 100 ML IV SCH ×2 (13:40→16:30)
[2017-03-30] MEDS: SIMVASTATIN 80 MG TABLET PO SCH (21:44)
[2017-03-31] MEDS: PIPERACILLIN/TAZOBACTAM 3,375 MG in SODIUM CHLORIDE 0.9% 100 ML IV SCH ×3 (00:26→17:27)
[2017-03-31] MEDS: SODIUM CHLORIDE 0.9% 1,000 ML IV SCH ×2 (04:29→21:04)
[2017-03-31 06:01] LABS: Basophils % 0.1 % (0.0-0.8); Eosinophils # 0.1 10*3/uL (0.0-0.87); Eosinophils % 0.5 % (0.00-10.9); Hemoglobin 12.3 GM/DL (14.0-18.0); Immature Granulocytes % 0.4 %; Immature Granulocytes Absolute 0.06 #; Lymphocytes # 1.6 10*3/uL (1.4-4.0); Lymphocytes % 11.2 % (21.2-54.2); Mean Corpuscular HGB Conc 35.1 GM/DL (32-36); Mean Corpuscular Hemoglobin 31 PG (27-34); Mean Corpuscular Volume 89.1 FL (87-102); Mean Platelet Volume 10.8 FL (9.6-12.0); Monocytes # 0.9 10*3/uL (0.11-0.8); Monocytes % 6.6 % (1.7-12.7); Neutrophils # 11.3 10*3/uL (1.4-7.4); Neutrophils % 81.2 % (38.7-73.9); Platelet Count 110 T/CUMM (130-400); Red Blood Count 3.93 MC/CUMM (3.8-5.5); Red Cell Distribution Width 14.1 % (9.3-17.3); White Blood Count 13.9 T/CUMM (4-12)
[2017-03-31 06:31] LABS: Albumin 3.3 G/DL (3.4-5.0); Bilirubin,Total 1.9 MG/DL (0.2-1.0); Calcium 9.1 MG/DL (8.5-10.1); Magnesium 1.9 MG/DL (1.8-2.4); Osmolality,Calculated 287.1 MOS/KG (273-304); Potassium 4.2 MMOL/L (3.5-5.1); Total Protein 6.5 G/DL (6.4-8.3)
[2017-03-31] MEDS: INSULIN LISPRO 100 UNIT/ML SUBCUT SCH ×4 (07:30→21:13)
[2017-03-31] MEDS: NIACIN 500 MG TABLET PO SCH (12:25)
[2017-03-31] MEDS: amLODIPine 5 MG TABLET PO SCH (12:26)
[2017-03-31] MEDS: SPIRONOLACTONE 25 MG TABLET PO SCH (12:26)
[2017-03-31] MEDS: METOPROLOL SUCCINATE XL 50 MG TABLET PO SCH (12:26)
[2017-03-31] MEDS: PANTOPRAZOLE 40 MG VIAL IV SCH (12:29)
[2017-03-31] MEDS: ENOXAPARIN 40 MG/0.4 ML SYRINGE SUBCUT SCH (12:33)
[2017-03-31] MEDS: SIMVASTATIN 80 MG TABLET PO SCH (21:11)
[2017-04-01] MEDS: PIPERACILLIN/TAZOBACTAM 3,375 MG in SODIUM CHLORIDE 0.9% 100 ML IV SCH ×3 (00:41→18:41)
[2017-04-01] MEDS: SODIUM CHLORIDE 0.9% 1,000 ML IV SCH ×3 (04:58→18:42)
[2017-04-01 05:53] LABS: Albumin 2.7 G/DL (3.4-5.0); Bilirubin,Direct 0.54 MG/DL (0.0-0.20); Bilirubin,Indirect 0.9 MG/DL (0.0-1.0); Bilirubin,Total 1.4 MG/DL (0.2-1.0); Total Protein 5.6 G/DL (6.4-8.3)
[2017-04-01 07:45] LABS: Basophils % 0.3 % (0.0-0.8); Eosinophils # 0.3 10*3/uL (0.0-0.87); Eosinophils % 3.2 % (0.00-10.9); Hematocrit 31.1 VOL% (42.0-52.0); Immature Granulocytes % 0.3 %; Immature Granulocytes Absolute 0.03 #; Lymphocytes % 20.2 % (21.2-54.2); Mean Corpuscular HGB Conc 34.7 GM/DL (32-36); Mean Corpuscular Hemoglobin 31 PG (27-34); Mean Corpuscular Volume 90.4 FL (87-102); Mean Platelet Volume 10.8 FL (9.6-12.0); Monocytes # 0.7 10*3/uL (0.11-0.8); Monocytes % 7.3 % (1.7-12.7); Neutrophils # 6.7 10*3/uL (1.4-7.4); Neutrophils % 68.7 % (38.7-73.9); Red Blood Count 3.44 MC/CUMM (3.8-5.5); Red Cell Distribution Width 14.1 % (9.3-17.3); White Blood Count 9.7 T/CUMM (4-12)
[2017-04-01 07:47] LABS: Hemoglobin 10.8 GM/DL (14.0-18.0); Platelet Count 92 T/CUMM (130-400)
[2017-04-01] MEDS: INSULIN LISPRO 100 UNIT/ML SUBCUT SCH ×4 (07:47→20:54)
[2017-04-01 08:28] LABS: Giant Platelets Few; Hypochromasia 1+; Platelet Estimate Decreased
[2017-04-01] MEDS: METOPROLOL SUCCINATE XL 50 MG TABLET PO SCH (08:52)
[2017-04-01] MEDS: NIACIN 500 MG TABLET PO SCH (08:52)
[2017-04-01] MEDS: SPIRONOLACTONE 25 MG TABLET PO SCH (08:52)
[2017-04-01] MEDS: amLODIPine 5 MG TABLET PO SCH (08:53)
[2017-04-01] MEDS: ENOXAPARIN 40 MG/0.4 ML SYRINGE SUBCUT SCH (08:55)
[2017-04-01] MEDS: PANTOPRAZOLE 40 MG VIAL IV SCH (09:00)
[2017-04-01] MEDS: SIMVASTATIN 80 MG TABLET PO SCH (20:57)
[2017-04-02] MEDS: PIPERACILLIN/TAZOBACTAM 3,375 MG in SODIUM CHLORIDE 0.9% 100 ML IV SCH ×3 (00:39→16:13)
[2017-04-02 05:48] LABS: Basophils % 0.4 % (0.0-0.8); Eosinophils # 0.3 10*3/uL (0.0-0.87); Eosinophils % 4.6 % (0.00-10.9); Hematocrit 29.8 VOL% (42.0-52.0); Hemoglobin 10.4 GM/DL (14.0-18.0); Immature Granulocytes % 0.4 %; Immature Granulocytes Absolute 0.02 #; Lymphocytes # 1.2 10*3/uL (1.4-4.0); Lymphocytes % 22.6 % (21.2-54.2); Mean Corpuscular HGB Conc 34.9 GM/DL (32-36); Mean Corpuscular Hemoglobin 31 PG (27-34); Mean Corpuscular Volume 89.2 FL (87-102); Mean Platelet Volume 10.3 FL (9.6-12.0); Monocytes # 0.4 10*3/uL (0.11-0.8); Monocytes % 7.3 % (1.7-12.7); Neutrophils # 3.6 10*3/uL (1.4-7.4); Neutrophils % 64.7 % (38.7-73.9); Platelet Count 102 T/CUMM (130-400); Red Blood Count 3.34 MC/CUMM (3.8-5.5); Red Cell Distribution Width 13.7 % (9.3-17.3); White Blood Count 5.5 T/CUMM (4-12)
[2017-04-02] MEDS: SODIUM CHLORIDE 0.9% 1,000 ML IV SCH ×3 (05:48→22:26)
[2017-04-02 06:15] LABS: Calcium 8.7 MG/DL (8.5-10.1); Osmolality,Calculated 286.8 MOS/KG (273-304); Potassium 4.2 MMOL/L (3.5-5.1)
[2017-04-02] MEDS: INSULIN LISPRO 100 UNIT/ML SUBCUT SCH ×4 (07:25→20:29)
[2017-04-02] MEDS: SPIRONOLACTONE 25 MG TABLET PO SCH (08:16)
[2017-04-02] MEDS: NIACIN 500 MG TABLET PO SCH (08:16)
[2017-04-02] MEDS: PANTOPRAZOLE 40 MG VIAL IV SCH (08:17)
[2017-04-02] MEDS: amLODIPine 5 MG TABLET PO SCH (08:17)
[2017-04-02] MEDS: METOPROLOL SUCCINATE XL 50 MG TABLET PO SCH (08:17)
[2017-04-02] MEDS: ENOXAPARIN 40 MG/0.4 ML SYRINGE SUBCUT SCH (08:17)
[2017-04-02] MEDS ORDERED: GLUCAGON 1 MG VIAL ONE (14:10)
[2017-04-02] MEDS ORDERED: DEXTROSE 50% 25 GM/50 ML VIAL IV PRN (15:49)
[2017-04-02] MEDS ORDERED: GLUCAGON 1 MG VIAL IM PRN (15:49)
[2017-04-02] MEDS: SIMVASTATIN 80 MG TABLET PO SCH (20:28)
[2017-04-03] MEDS: PIPERACILLIN/TAZOBACTAM 3,375 MG in SODIUM CHLORIDE 0.9% 100 ML IV SCH ×2 (01:33→09:30)
[2017-04-03] MEDS: SODIUM CHLORIDE 0.9% 1,000 ML IV SCH ×2 (02:08→08:41)
[2017-04-03 06:15] LABS: Basophils % 0.5 % (0.0-0.8); Eosinophils # 0.3 10*3/uL (0.0-0.87); Eosinophils % 4.6 % (0.00-10.9); Hematocrit 33.9 VOL% (42.0-52.0); Hemoglobin 11.7 GM/DL (14.0-18.0); Immature Granulocytes % 0.3 %; Immature Granulocytes Absolute 0.02 #; Lymphocytes # 1.6 10*3/uL (1.4-4.0); Lymphocytes % 27.7 % (21.2-54.2); Mean Corpuscular HGB Conc 34.5 GM/DL (32-36); Mean Corpuscular Hemoglobin 31 PG (27-34); Mean Corpuscular Volume 89.2 FL (87-102); Mean Platelet Volume 10.4 FL (9.6-12.0); Monocytes # 0.5 10*3/uL (0.11-0.8); Monocytes % 7.6 % (1.7-12.7); Neutrophils # 3.5 10*3/uL (1.4-7.4); Neutrophils % 59.3 % (38.7-73.9); Platelet Count 122 T/CUMM (130-400); Red Cell Distribution Width 13.8 % (9.3-17.3); White Blood Count 5.9 T/CUMM (4-12)
[2017-04-03 06:52] LABS: Magnesium 2.1 MG/DL (1.8-2.4); Osmolality,Calculated 286.1 MOS/KG (273-304)
[2017-04-03 07:48] VITALS: BP 158/66
[2017-04-03] MEDS: INSULIN LISPRO 100 UNIT/ML SUBCUT SCH (08:40)
[2017-04-03] MEDS: NIACIN 500 MG TABLET PO SCH (09:46)
[2017-04-03] MEDS: PANTOPRAZOLE 40 MG VIAL IV SCH (09:46)
[2017-04-03] MEDS: SPIRONOLACTONE 25 MG TABLET PO SCH (09:46)
[2017-04-03] MEDS: amLODIPine 5 MG TABLET PO SCH (09:46)
[2017-04-03] MEDS: METOPROLOL SUCCINATE XL 50 MG TABLET PO SCH (09:46)
[2017-04-03] MEDS: ENOXAPARIN 40 MG/0.4 ML SYRINGE SUBCUT SCH (09:47)
== END 2017-04-03 09:57 | disposition home health service (06) | DRG 439 ==
LOC: N.ED 05:46 → SUATTDRO 07:55 → N.EDINP 07:55 → N.3E 09:05
PROVIDERS: ADMIT Internal Medicine; ATTEND Internal Medicine

== ENCOUNTER 2021-04-18 05:58 | Inpatient (IN) ==
[2021-04-18 06:38] LABS: Basophils % 0.2 % (0.0-0.8); Eosinophils % 0.2 % (0.00-10.9); Hematocrit 35.5 VOL% (42.0-52.0); Hemoglobin 11.8 GM/DL (14.0-18.0); Immature Granulocytes % 0.7 %; Immature Granulocytes Absolute 0.06 #; Lymphocytes # 0.5 10*3/uL (1.4-4.0); Lymphocytes % 5.7 % (21.2-54.2); Mean Corpuscular HGB Conc 33.2 GM/DL (32-36); Mean Corpuscular Volume 91.3 FL (87-102); Mean Platelet Volume 10.1 FL (9.6-12.0); Monocytes % 7.7 % (1.7-12.7); Neutrophils % 85.5 % (38.7-73.9); Platelet Count 167 T/CUMM (130-400); Red Blood Count 3.89 MC/CUMM (3.8-5.5); Red Cell Distribution Width 13.4 % (9.3-17.3); White Blood Count 9.2 T/CUMM (4-12)
[2021-04-18] MEDS ORDERED: FUROSEMIDE 40 MG/4 ML VIAL IV STA (08:11)
[2021-04-18] MEDS ORDERED: ASPIRIN 325 MG TABLET PO STA (08:12)
[2021-04-18 08:29] LABS: Albumin 3.3 G/DL (3.4-5.0); Bilirubin,Total 1.1 MG/DL (0.20-1.00); Calcium 9.1 MG/DL (8.5-10.1); Osmolality,Calculated 300.7 MOS/KG (273-304); Potassium 4.8 MMOL/L (3.5-5.1); Total Protein 7.5 G/DL (6.4-8.2)
[2021-04-18] MEDS ORDERED: GLUCAGON 1 MG VIAL IM PRN (10:00)
[2021-04-18] MEDS ORDERED: DEXTROSE 50% 25 GM/50 ML VIAL IV PRN (10:00)
[2021-04-18] MEDS ORDERED: ACETAMINOPHEN 325 MG TABLET PO PRN (10:00)
[2021-04-18] MEDS ORDERED: NITROGLYCERIN SL 0.4 MG TABLET SL PRN (10:27)
[2021-04-18] MEDS ORDERED: ENOXAPARIN 80 MG/0.8 ML SYRINGE SUBCUT ONE (10:53)
[2021-04-18] MEDS ORDERED: METOPROLOL SUCCINATE XL 25 MG TABLET PO SCH (11:00)
[2021-04-18] MEDS: NITROGLYCERIN 2% OINT 1 INCH/GM PACK TOP SCH ×3 (11:15→22:09)
[2021-04-18] MEDS: INSULIN REGULAR 100 UNIT/ML SUBCUT SCH ×3 (11:42→22:16)
[2021-04-18] MEDS ORDERED: diphenhydrAMINE CAP 25 MG CAPSULE PO ONE (12:53)
[2021-04-18] MEDS ORDERED: DIAZEPAM 5 MG TABLET PO ONE (12:53)
[2021-04-18] MEDS: SODIUM CHLORIDE 0.9% 1,000 ML IV SCH ×2 (13:14→22:12)
[2021-04-18] MEDS ORDERED: LIDOCAINE 1% 20 ML VIAL ONE ×2 (15:39→16:02)
[2021-04-18] MEDS ORDERED: MIDAZOLAM 2 MG/2 ML VIAL ONE (15:40)
[2021-04-18] MEDS ORDERED: fentaNYL 100 MCG/2 ML VIAL ONE (15:41)
[2021-04-18] MEDS ORDERED: FUROSEMIDE 40 MG/4 ML VIAL IV SCH (16:00)
[2021-04-18] MEDS ORDERED: ATROPINE 1 MG/10 ML SYRINGE ONE (16:53)
[2021-04-18] MEDS ORDERED: HEPARIN 5,000 UNIT/1 ML VIAL ONE (17:07)
[2021-04-18] MEDS ORDERED: TIROFIBAN 5,000 MCG/100 ML PREMIX IV ONE (17:26)
[2021-04-18] MEDS ORDERED: TICAGRELOR 90 MG TABLET ONE (17:51)
[2021-04-18] MEDS ORDERED: SODIUM CHLORIDE 0.9% 1,000 ML IV SCH (18:30)
[2021-04-18] MEDS: TIROFIBAN 5,000 MCG/100 ML PREMIX IV SCH (18:32)
[2021-04-18] MEDS: TICAGRELOR 90 MG TABLET PO SCH (22:07)
[2021-04-18] MEDS: ROSUVASTATIN 20 MG TABLET PO SCH (22:19)
[2021-04-19] MEDS: NITROGLYCERIN 2% OINT 1 INCH/GM PACK TOP SCH ×2 (01:21→06:37)
[2021-04-19 02:51] LABS: Basophils % 0.3 % (0.0-0.8); Eosinophils % 0.3 % (0.00-10.9); Hematocrit 32.4 VOL% (42.0-52.0); Hemoglobin 11.1 GM/DL (14.0-18.0); Immature Granulocytes % 0.3 %; Immature Granulocytes Absolute 0.02 #; Lymphocytes # 0.6 10*3/uL (1.4-4.0); Lymphocytes % 8.5 % (21.2-54.2); Mean Corpuscular HGB Conc 34.3 GM/DL (32-36); Mean Corpuscular Volume 89.5 FL (87-102); Mean Platelet Volume 10.1 FL (9.6-12.0); Monocytes % 9.4 % (1.7-12.7); Neutrophils % 81.2 % (38.7-73.9); Platelet Count 155 T/CUMM (130-400); Red Blood Count 3.62 MC/CUMM (3.8-5.5); Red Cell Distribution Width 13.2 % (9.3-17.3); White Blood Count 6.9 T/CUMM (4-12)
[2021-04-19 02:57] LABS: Calcium 8.9 MG/DL (8.5-10.1); Osmolality,Calculated 286.8 MOS/KG (273-304); Potassium 3.4 MMOL/L (3.5-5.1)
[2021-04-19 03:02] LABS: Albumin 2.8 G/DL (3.4-5.0); Bilirubin,Total 1.1 MG/DL (0.20-1.00); Calcium 9.1 MG/DL (8.5-10.1); Osmolality,Calculated 288.7 MOS/KG (273-304); Potassium 3.4 MMOL/L (3.5-5.1); Total Protein 6.5 G/DL (6.4-8.2)
[2021-04-19 03:02] LABS: Risk Ratio 2.35; VLDL Cholesterol 27.2 MG/DL
[2021-04-19] MEDS ORDERED: POTASSIUM CHLORIDE 20 MEQ TABLET PO ONE (07:20)
[2021-04-19] MEDS: INSULIN REGULAR 100 UNIT/ML SUBCUT SCH ×4 (07:30→21:41)
[2021-04-19] MEDS ORDERED: ASPIRIN EC 81 MG TABLET PO SCH (09:00)
[2021-04-19] MEDS ORDERED: METOPROLOL SUCCINATE XL 25 MG TABLET PO SCH (09:00)
[2021-04-19] MEDS: ASPIRIN CHEW 81 MG TABLET PO SCH (09:56)
[2021-04-19] MEDS: TICAGRELOR 90 MG TABLET PO SCH ×2 (09:56→21:40)
[2021-04-19] MEDS: carvediloL 3.125 MG TABLET PO SCH ×2 (09:56→21:40)
[2021-04-19] MEDS: FERROUS SULFATE 325 MG TABLET PO SCH (09:56)
[2021-04-19] MEDS: FUROSEMIDE 20 MG/2 ML VIAL IV SCH ×2 (10:36→15:40)
[2021-04-19] MEDS: SACUBITRIL/VALSARTAN 49-51 MG TABLET PO SCH ×2 (10:36→21:40)
[2021-04-19] MEDS: TIROFIBAN 5,000 MCG/100 ML PREMIX IV SCH (10:42)
[2021-04-19] MEDS: ROSUVASTATIN 20 MG TABLET PO SCH (21:40)
[2021-04-20] MEDS: TIROFIBAN 5,000 MCG/100 ML PREMIX IV SCH (04:57)
[2021-04-20 05:30] LABS: Basophils % 0.4 % (0.0-0.8); Eosinophils # 0.2 10*3/uL (0.0-0.87); Eosinophils % 1.9 % (0.00-10.9); Hematocrit 31.1 VOL% (42.0-52.0); Hemoglobin 10.3 GM/DL (14.0-18.0); Immature Granulocytes % 0.4 %; Immature Granulocytes Absolute 0.03 #; Lymphocytes # 0.8 10*3/uL (1.4-4.0); Lymphocytes % 10.3 % (21.2-54.2); Mean Corpuscular HGB Conc 33.1 GM/DL (32-36); Mean Corpuscular Volume 91.7 FL (87-102); Mean Platelet Volume 10.1 FL (9.6-12.0); Monocytes % 10.7 % (1.7-12.7); Neutrophils % 76.3 % (38.7-73.9); Platelet Count 142 T/CUMM (130-400); Red Blood Count 3.39 MC/CUMM (3.8-5.5); Red Cell Distribution Width 13.5 % (9.3-17.3); White Blood Count 7.8 T/CUMM (4-12)
[2021-04-20 05:48] LABS: Calcium 8.2 MG/DL (8.5-10.1); Osmolality,Calculated 300.1 MOS/KG (273-304); Potassium 3.7 MMOL/L (3.5-5.1)
[2021-04-20] MEDS ORDERED: FUROSEMIDE 40 MG TABLET PO SCH (09:00)
[2021-04-20] MEDS: ASCORBIC ACID 500 MG TABLET PO SCH ×2 (09:34→21:21)
[2021-04-20] MEDS: ASPIRIN CHEW 81 MG TABLET PO SCH (09:34)
[2021-04-20] MEDS: carvediloL 6.25 MG TABLET PO SCH ×2 (09:34→21:16)
[2021-04-20] MEDS: FERROUS SULFATE 325 MG TABLET PO SCH (09:34)
[2021-04-20] MEDS: TICAGRELOR 90 MG TABLET PO SCH ×2 (09:35→21:16)
[2021-04-20] MEDS: FUROSEMIDE 20 MG/2 ML VIAL IV SCH (10:05)
[2021-04-20] MEDS: DOCUSATE SODIUM 100 MG CAPSULE PO SCH ×2 (13:26→21:16)
[2021-04-20] MEDS: INSULIN REGULAR 100 UNIT/ML SUBCUT SCH ×4 (13:26→21:17)
[2021-04-20] MEDS: POLYETHYLENE GLYCOL POWDER 17 GM PACK PO SCH ×2 (13:26→21:17)
[2021-04-20] MEDS: ROSUVASTATIN 20 MG TABLET PO SCH (21:16)
[2021-04-20] MEDS: sitaGLIPtin 25 MG TABLET PO SCH (21:17)
[2021-04-21 05:20] LABS: Basophils % 0.3 % (0.0-0.8); Eosinophils # 0.3 10*3/uL (0.0-0.87); Hematocrit 30.4 VOL% (42.0-52.0); Hemoglobin 9.9 GM/DL (14.0-18.0); Immature Granulocytes % 0.7 %; Immature Granulocytes Absolute 0.06 #; Lymphocytes % 10.5 % (21.2-54.2); Mean Corpuscular HGB Conc 32.6 GM/DL (32-36); Mean Corpuscular Volume 93.5 FL (87-102); Mean Platelet Volume 10.3 FL (9.6-12.0); Monocytes % 8.6 % (1.7-12.7); Neutrophils % 76.9 % (38.7-73.9); Platelet Count 150 T/CUMM (130-400); Red Blood Count 3.25 MC/CUMM (3.8-5.5); Red Cell Distribution Width 13.2 % (9.3-17.3); White Blood Count 9.2 T/CUMM (4-12)
[2021-04-21 05:44] LABS: Calcium 8.3 MG/DL (8.5-10.1); Osmolality,Calculated 298.5 MOS/KG (273-304); Potassium 4.1 MMOL/L (3.5-5.1)
[2021-04-21] MEDS: GLIMEPIRIDE 2 MG TABLET PO SCH (08:22)
[2021-04-21] MEDS: DOCUSATE SODIUM 100 MG CAPSULE PO SCH ×2 (08:22→21:21)
[2021-04-21] MEDS: POLYETHYLENE GLYCOL POWDER 17 GM PACK PO SCH ×2 (08:22→21:21)
[2021-04-21] MEDS: ASCORBIC ACID 500 MG TABLET PO SCH ×2 (08:23→21:21)
[2021-04-21] MEDS: FERROUS SULFATE 325 MG TABLET PO SCH (08:23)
[2021-04-21] MEDS: TICAGRELOR 90 MG TABLET PO SCH ×2 (08:24→21:21)
[2021-04-21] MEDS: ASPIRIN CHEW 81 MG TABLET PO SCH (08:29)
[2021-04-21] MEDS: carvediloL 6.25 MG TABLET PO SCH ×2 (08:29→21:21)
[2021-04-21] MEDS: INSULIN REGULAR 100 UNIT/ML SUBCUT SCH ×4 (08:32→21:21)
[2021-04-21] MEDS ORDERED: SODIUM CHLORIDE 0.9% 1,000 ML IV SCH (10:00)
[2021-04-21] MEDS ORDERED: MAGNESIUM HYDROXIDE SUSP 30 ML UDCUP PO ONE (15:48)
[2021-04-21] MEDS: SODIUM CHLORIDE 0.9% 1,000 ML IV SCH (16:27)
[2021-04-21] MEDS ORDERED: SENNA 8.6 MG TABLET PO SCH (21:00)
[2021-04-21] MEDS: sitaGLIPtin 25 MG TABLET PO SCH (21:21)
[2021-04-21] MEDS: ROSUVASTATIN 20 MG TABLET PO SCH (21:21)
[2021-04-22 05:05] LABS: Basophils % 0.1 % (0.0-0.8); Eosinophils # 0.1 10*3/uL (0.0-0.87); Eosinophils % 0.7 % (0.00-10.9); Hematocrit 32.6 VOL% (42.0-52.0); Hemoglobin 10.6 GM/DL (14.0-18.0); Immature Granulocytes % 0.7 %; Immature Granulocytes Absolute 0.05 #; Lymphocytes # 0.4 10*3/uL (1.4-4.0); Lymphocytes % 6.4 % (21.2-54.2); Mean Corpuscular HGB Conc 32.5 GM/DL (32-36); Mean Corpuscular Volume 92.1 FL (87-102); Mean Platelet Volume 10.2 FL (9.6-12.0); Monocytes % 6.1 % (1.7-12.7); Platelet Count 157 T/CUMM (130-400); Red Blood Count 3.54 MC/CUMM (3.8-5.5); Red Cell Distribution Width 13.3 % (9.3-17.3); White Blood Count 6.8 T/CUMM (4-12)
[2021-04-22 05:32] LABS: Calcium 8.3 MG/DL (8.5-10.1); Osmolality,Calculated 312.7 MOS/KG (273-304); Potassium 4.5 MMOL/L (3.5-5.1)
[2021-04-22] MEDS ORDERED: LINACLOTIDE 145 MCG CAPSULE PO SCH (07:30)
[2021-04-22] MEDS: POLYETHYLENE GLYCOL POWDER 17 GM PACK PO SCH (08:16)
[2021-04-22] MEDS: INSULIN REGULAR 100 UNIT/ML SUBCUT SCH ×4 (08:45→22:25)
[2021-04-22] MEDS: FERROUS SULFATE 325 MG TABLET PO SCH (08:46)
[2021-04-22] MEDS: ASCORBIC ACID 500 MG TABLET PO SCH ×2 (08:46→22:25)
[2021-04-22] MEDS: DOCUSATE SODIUM 100 MG CAPSULE PO SCH ×2 (08:47→22:24)
[2021-04-22] MEDS: carvediloL 6.25 MG TABLET PO SCH (08:47)
[2021-04-22] MEDS: TICAGRELOR 90 MG TABLET PO SCH ×2 (08:47→22:25)
[2021-04-22] MEDS: ASPIRIN CHEW 81 MG TABLET PO SCH (08:48)
[2021-04-22] MEDS: GLIMEPIRIDE 2 MG TABLET PO SCH (08:53)
[2021-04-22] MEDS ORDERED: SODIUM BICARB INJ 50 MEQ in SODIUM CHLORIDE 0.45% 1,000 ML IV SCH (13:00)
[2021-04-22] MEDS: SODIUM CHLORIDE 0.9% 1,000 ML IV SCH (15:31)
[2021-04-22] MEDS: ROSUVASTATIN 20 MG TABLET PO SCH (22:24)
[2021-04-22] MEDS: sitaGLIPtin 25 MG TABLET PO SCH (22:24)
[2021-04-22] MEDS: carvediloL 12.5 MG TABLET PO SCH (22:25)
[2021-04-23 05:49] LABS: Basophils % 0.1 % (0.0-0.8); Hemoglobin 11.1 GM/DL (14.0-18.0); Immature Granulocytes % 1.2 %; Immature Granulocytes Absolute 0.08 #; Lymphocytes # 0.3 10*3/uL (1.4-4.0); Lymphocytes % 4.6 % (21.2-54.2); Mean Corpuscular HGB Conc 33.6 GM/DL (32-36); Mean Corpuscular Volume 91.7 FL (87-102); Mean Platelet Volume 9.7 FL (9.6-12.0); Monocytes % 3.9 % (1.7-12.7); Neutrophils % 90.2 % (38.7-73.9); Platelet Count 169 T/CUMM (130-400); Red Cell Distribution Width 13.5 % (9.3-17.3); White Blood Count 6.9 T/CUMM (4-12)
[2021-04-23 06:11] LABS: Calcium 8.8 MG/DL (8.5-10.1); Osmolality,Calculated 304.8 MOS/KG (273-304); Potassium 4.7 MMOL/L (3.5-5.1)
[2021-04-23 06:17] LABS: Lymphocytes 2 % (20-55); Platelet Estimate Normal; Segmented Neutrophils 92 % (50-85); Total Cells Counted 100
[2021-04-23] MEDS: INSULIN REGULAR 100 UNIT/ML SUBCUT SCH ×4 (08:37→21:59)
[2021-04-23] MEDS: carvediloL 12.5 MG TABLET PO SCH ×2 (09:20→20:50)
[2021-04-23] MEDS: TICAGRELOR 90 MG TABLET PO SCH ×2 (09:20→20:50)
[2021-04-23] MEDS: DOCUSATE SODIUM 100 MG CAPSULE PO SCH ×2 (09:20→20:51)
[2021-04-23] MEDS: GLIMEPIRIDE 4 MG TABLET PO SCH (09:21)
[2021-04-23] MEDS: ASPIRIN CHEW 81 MG TABLET PO SCH (09:21)
[2021-04-23] MEDS: ASCORBIC ACID 500 MG TABLET PO SCH ×2 (09:21→20:50)
[2021-04-23] MEDS: POLYETHYLENE GLYCOL POWDER 17 GM PACK PO SCH (09:24)
[2021-04-23] MEDS: SODIUM CHLORIDE 0.9% 1,000 ML IV SCH (12:31)
[2021-04-23] MEDS: ROSUVASTATIN 20 MG TABLET PO SCH (20:50)
[2021-04-23] MEDS: sitaGLIPtin 25 MG TABLET PO SCH (20:50)
[2021-04-24 05:56] LABS: Basophils % 0.2 % (0.0-0.8); Eosinophils % 0.5 % (0.00-10.9); Hematocrit 31.9 VOL% (42.0-52.0); Hemoglobin 10.3 GM/DL (14.0-18.0); Immature Granulocytes % 0.7 %; Immature Granulocytes Absolute 0.06 #; Lymphocytes # 0.6 10*3/uL (1.4-4.0); Lymphocytes % 6.7 % (21.2-54.2); Mean Corpuscular HGB Conc 32.3 GM/DL (32-36); Mean Corpuscular Volume 92.2 FL (87-102); Mean Platelet Volume 10.1 FL (9.6-12.0); Neutrophils % 80.9 % (38.7-73.9); Platelet Count 189 T/CUMM (130-400); Red Blood Count 3.46 MC/CUMM (3.8-5.5); Red Cell Distribution Width 13.8 % (9.3-17.3); White Blood Count 8.4 T/CUMM (4-12)
[2021-04-24 06:32] LABS: Calcium 8.6 MG/DL (8.5-10.1); Potassium 4.3 MMOL/L (3.5-5.1)
[2021-04-24] MEDS: SODIUM CHLORIDE 0.9% 1,000 ML IV SCH (08:47)
[2021-04-24] MEDS: INSULIN REGULAR 100 UNIT/ML SUBCUT SCH ×4 (08:47→21:24)
[2021-04-24] MEDS: GLIMEPIRIDE 4 MG TABLET PO SCH (09:40)
[2021-04-24] MEDS: ASCORBIC ACID 500 MG TABLET PO SCH ×2 (09:40→21:25)
[2021-04-24] MEDS: TICAGRELOR 90 MG TABLET PO SCH ×2 (09:40→21:24)
[2021-04-24] MEDS: carvediloL 12.5 MG TABLET PO SCH ×2 (09:41→21:24)
[2021-04-24] MEDS: ASPIRIN CHEW 81 MG TABLET PO SCH (09:41)
[2021-04-24] MEDS: DOCUSATE SODIUM 100 MG CAPSULE PO SCH ×2 (09:41→21:24)
[2021-04-24] MEDS: POLYETHYLENE GLYCOL POWDER 17 GM PACK PO SCH (09:42)
[2021-04-24] MEDS: ROSUVASTATIN 20 MG TABLET PO SCH (21:24)
[2021-04-24] MEDS: sitaGLIPtin 25 MG TABLET PO SCH (21:25)
[2021-04-25 06:00] LABS: Basophils % 0.2 % (0.0-0.8); Eosinophils % 0.4 % (0.00-10.9); Hemoglobin 10.1 GM/DL (14.0-18.0); Immature Granulocytes % 0.8 %; Immature Granulocytes Absolute 0.07 #; Lymphocytes # 0.6 10*3/uL (1.4-4.0); Lymphocytes % 6.8 % (21.2-54.2); Mean Corpuscular HGB Conc 32.6 GM/DL (32-36); Mean Corpuscular Volume 92.8 FL (87-102); Mean Platelet Volume 10.3 FL (9.6-12.0); Monocytes % 11.8 % (1.7-12.7); Platelet Count 197 T/CUMM (130-400); Red Blood Count 3.34 MC/CUMM (3.8-5.5); Red Cell Distribution Width 13.9 % (9.3-17.3)
[2021-04-25 06:21] LABS: Calcium 8.6 MG/DL (8.5-10.1); Potassium 4.2 MMOL/L (3.5-5.1)
[2021-04-25] MEDS: GLIMEPIRIDE 4 MG TABLET PO SCH (08:18)
[2021-04-25] MEDS: ASCORBIC ACID 500 MG TABLET PO SCH ×2 (08:18→20:38)
[2021-04-25] MEDS: DOCUSATE SODIUM 100 MG CAPSULE PO SCH ×2 (08:18→20:39)
[2021-04-25] MEDS: carvediloL 12.5 MG TABLET PO SCH ×2 (08:18→20:39)
[2021-04-25] MEDS: TICAGRELOR 90 MG TABLET PO SCH ×2 (08:18→20:39)
[2021-04-25] MEDS: ASPIRIN CHEW 81 MG TABLET PO SCH (08:18)
[2021-04-25] MEDS: POLYETHYLENE GLYCOL POWDER 17 GM PACK PO SCH (08:19)
[2021-04-25] MEDS: INSULIN REGULAR 100 UNIT/ML SUBCUT SCH ×4 (11:44→20:40)
[2021-04-25] MEDS: REPAGLINIDE 1 MG TABLET PO SCH (17:21)
[2021-04-25] MEDS: SODIUM CHLORIDE 0.9% 1,000 ML IV SCH (18:40)
[2021-04-25] MEDS: ROSUVASTATIN 20 MG TABLET PO SCH (20:38)
[2021-04-25] MEDS: sitaGLIPtin 25 MG TABLET PO SCH (20:39)
[2021-04-26 05:17] LABS: Basophils % 0.1 % (0.0-0.8); Eosinophils % 0.6 % (0.00-10.9); Hematocrit 29.2 VOL% (42.0-52.0); Hemoglobin 9.4 GM/DL (14.0-18.0); Immature Granulocytes % 1.2 %; Immature Granulocytes Absolute 0.08 #; Lymphocytes # 0.6 10*3/uL (1.4-4.0); Lymphocytes % 8.5 % (21.2-54.2); Mean Corpuscular HGB Conc 32.2 GM/DL (32-36); Mean Corpuscular Volume 92.7 FL (87-102); Mean Platelet Volume 10.2 FL (9.6-12.0); Monocytes % 8.8 % (1.7-12.7); Neutrophils % 80.8 % (38.7-73.9); Platelet Count 146 T/CUMM (130-400); Red Blood Count 3.15 MC/CUMM (3.8-5.5); Red Cell Distribution Width 13.8 % (9.3-17.3); White Blood Count 6.8 T/CUMM (4-12)
[2021-04-26 05:44] LABS: Albumin 2.8 G/DL (3.4-5.0); Bilirubin,Total 1.1 MG/DL (0.20-1.00); Calcium 8.3 MG/DL (8.5-10.1); Potassium 4.1 MMOL/L (3.5-5.1); Total Protein 6.4 G/DL (6.4-8.2)
[2021-04-26] MEDS: ASCORBIC ACID 500 MG TABLET PO SCH ×2 (08:22→20:44)
[2021-04-26] MEDS: ASPIRIN CHEW 81 MG TABLET PO SCH (08:22)
[2021-04-26] MEDS: carvediloL 12.5 MG TABLET PO SCH (08:23)
[2021-04-26] MEDS: GLIMEPIRIDE 4 MG TABLET PO SCH (08:23)
[2021-04-26] MEDS: TICAGRELOR 90 MG TABLET PO SCH ×2 (08:23→20:44)
[2021-04-26] MEDS: DOCUSATE SODIUM 100 MG CAPSULE PO SCH ×2 (08:23→20:44)
[2021-04-26] MEDS: POLYETHYLENE GLYCOL POWDER 17 GM PACK PO SCH (08:23)
[2021-04-26] MEDS: INSULIN REGULAR 100 UNIT/ML SUBCUT SCH ×4 (09:10→20:44)
[2021-04-26] MEDS: REPAGLINIDE 1 MG TABLET PO SCH (11:15)
[2021-04-26] MEDS: ROSUVASTATIN 20 MG TABLET PO SCH (20:44)
[2021-04-26] MEDS: sitaGLIPtin 25 MG TABLET PO SCH (20:44)
[2021-04-26] MEDS: INSULIN GLARGINE 100 UNIT/ML SUBCUT SCH (20:45)
[2021-04-27 05:11] LABS: Basophils % 0.1 % (0.0-0.8); Eosinophils # 0.2 10*3/uL (0.0-0.87); Eosinophils % 1.8 % (0.00-10.9); Hematocrit 31.5 VOL% (42.0-52.0); Hemoglobin 10.1 GM/DL (14.0-18.0); Immature Granulocytes Absolute 0.09 #; Lymphocytes # 0.8 10*3/uL (1.4-4.0); Lymphocytes % 9.2 % (21.2-54.2); Mean Corpuscular HGB Conc 32.1 GM/DL (32-36); Mean Corpuscular Volume 93.5 FL (87-102); Mean Platelet Volume 10.1 FL (9.6-12.0); Monocytes % 10.3 % (1.7-12.7); Neutrophils % 77.6 % (38.7-73.9); Platelet Count 188 T/CUMM (130-400); Red Blood Count 3.37 MC/CUMM (3.8-5.5); Red Cell Distribution Width 14.1 % (9.3-17.3); White Blood Count 8.8 T/CUMM (4-12)
[2021-04-27] MEDS: INSULIN REGULAR 100 UNIT/ML SUBCUT SCH ×4 (08:09→23:12)
[2021-04-27 10:10] LABS: Calcium 8.5 MG/DL (8.5-10.1); Osmolality,Calculated 305.6 MOS/KG (273-304); Potassium 4.3 MMOL/L (3.5-5.1)
[2021-04-27] MEDS: GLIMEPIRIDE 4 MG TABLET PO SCH (10:16)
[2021-04-27] MEDS: ASPIRIN CHEW 81 MG TABLET PO SCH (10:16)
[2021-04-27] MEDS: POLYETHYLENE GLYCOL POWDER 17 GM PACK PO SCH (10:17)
[2021-04-27] MEDS: ASCORBIC ACID 500 MG TABLET PO SCH ×2 (10:17→20:55)
[2021-04-27] MEDS: DOCUSATE SODIUM 100 MG CAPSULE PO SCH ×2 (10:17→20:55)
[2021-04-27] MEDS: TICAGRELOR 90 MG TABLET PO SCH ×2 (10:17→20:55)
[2021-04-27] MEDS ORDERED: FUROSEMIDE 20 MG TABLET PO SCH (11:30)
[2021-04-27 20:42] VITALS: BP 134/71
[2021-04-27] MEDS: sitaGLIPtin 25 MG TABLET PO SCH (20:55)
[2021-04-27] MEDS: ROSUVASTATIN 20 MG TABLET PO SCH (20:55)
[2021-04-27] MEDS: INSULIN GLARGINE 100 UNIT/ML SUBCUT SCH (23:12)
== END 2021-04-27 21:02 | disposition home health service (06) | DRG 246 ==
LOC: N.ED 05:58 → SUATTDRO 10:00 → N.EDINP 10:00 → N.TELEN 20:55
PROVIDERS: ADMIT Hospitalist; ATTEND Internal Medicine

== ENCOUNTER 2021-05-04 17:48 | Inpatient (IN) ==
[2021-05-04 18:23] LABS: Basophils % 0.1 % (0.0-0.8); Eosinophils % 0.4 % (0.00-10.9); Hematocrit 31.2 VOL% (42.0-52.0); Hemoglobin 10.2 GM/DL (14.0-18.0); Immature Granulocytes % 0.7 %; Immature Granulocytes Absolute 0.05 #; Lymphocytes # 0.5 10*3/uL (1.4-4.0); Mean Corpuscular HGB Conc 32.7 GM/DL (32-36); Mean Platelet Volume 10.1 FL (9.6-12.0); Neutrophils % 84.8 % (38.7-73.9); Platelet Count 120 T/CUMM (130-400); Red Blood Count 3.43 MC/CUMM (3.8-5.5); Red Cell Distribution Width 13.6 % (9.3-17.3); White Blood Count 7.3 T/CUMM (4-12)
[2021-05-04 18:47] LABS: Band Neutrophils 6 % (0-10); Eosinophils 1 % (0-10); Lymphocytes 8 % (20-55); Platelet Estimate Adequate; Segmented Neutrophils 79 % (50-85); Total Cells Counted 100
[2021-05-04 18:48] LABS: Anisocytosis 2+; Macrocytosis Slight; Tear Drop Cells Few
[2021-05-04 18:52] LABS: Albumin 2.5 G/DL (3.4-5.0); Bilirubin,Total 1.1 MG/DL (0.20-1.00); Calcium 8.4 MG/DL (8.5-10.1); Osmolality,Calculated 294.1 MOS/KG (273-304); Potassium 3.8 MMOL/L (3.5-5.1); Total Protein 6.9 G/DL (6.4-8.2)
[2021-05-04 19:32] LABS: INR 1.1; PT Patient Result 12.4 SECS (10.5-12.0); Partial Thromboplastin Time 32.7 SECS (23.8-32.1)
[2021-05-04] MEDS ORDERED: FUROSEMIDE 40 MG/4 ML VIAL IV STA (19:34)
[2021-05-04] MEDS ORDERED: DEXAMETHASONE 4 MG/1 ML VIAL IV STA (20:15)
[2021-05-04] MEDS ORDERED: SODIUM CHLORIDE 0.9% 1,000 ML IV STA (20:51)
[2021-05-04] MEDS ORDERED: ENOXAPARIN 60 MG/0.6 ML SYRINGE SUBCUT ONE (21:21)
[2021-05-04] MEDS ORDERED: GLUCAGON 1 MG VIAL IM PRN ×2 (21:29)
[2021-05-04] MEDS ORDERED: hydrALAZINE 20 MG/1 ML VIAL IV PRN (21:29)
[2021-05-04] MEDS ORDERED: ONDANSETRON 4 MG/2 ML VIAL IV PRN (21:29)
[2021-05-04] MEDS ORDERED: DOCUSATE SODIUM 100 MG CAPSULE PO PRN (21:29)
[2021-05-04] MEDS ORDERED: guaiFENesin/DM ER 600-30 MG TABLET PO PRN (21:29)
[2021-05-04] MEDS ORDERED: DEXTROSE 50% 25 GM/50 ML VIAL IV PRN (21:29)
[2021-05-04] MEDS ORDERED: NICOTINE 21 MG/24 HR PATCH TRANSDERM PRN (21:29)
[2021-05-04] MEDS ORDERED: MORPHINE 2 MG/1 ML SYRINGE IV PRN (21:29)
[2021-05-04] MEDS ORDERED: ACETAMINOPHEN 325 MG TABLET PO PRN (21:29)
[2021-05-04] MEDS ORDERED: DEXTROSE 10% 250 ML BAG IV PRN (21:29)
[2021-05-04] MEDS ORDERED: NITROGLYCERIN SL 0.4 MG TABLET SL PRN (21:35)
[2021-05-04] MEDS: DOXYCYCLINE HYCLATE INJ 100 MG in SODIUM CHLORIDE 0.9% 100 ML IV SCH (23:11)
[2021-05-04] MEDS ORDERED: ALBUTEROL INHALER 18 GM INH PRN (23:14)
[2021-05-05 03:26] LABS: Hematocrit 28.5 VOL% (42.0-52.0); Hemoglobin 9.4 GM/DL (14.0-18.0); Immature Granulocytes % 1.2 %; Immature Granulocytes Absolute 0.06 #; Lymphocytes # 0.2 10*3/uL (1.4-4.0); Lymphocytes % 3.3 % (21.2-54.2); Mean Corpuscular Volume 89.9 FL (87-102); Mean Platelet Volume 10.2 FL (9.6-12.0); Monocytes % 1.6 % (1.7-12.7); Neutrophils % 93.9 % (38.7-73.9); Platelet Count 89 T/CUMM (130-400); Red Blood Count 3.17 MC/CUMM (3.8-5.5); Red Cell Distribution Width 13.3 % (9.3-17.3); White Blood Count 4.9 T/CUMM (4-12)
[2021-05-05 03:48] LABS: Hypochromia 1+; Lymphocytes 1 % (20-55); Microcytosis 1+; Platelet Estimate Decreased; Segmented Neutrophils 96 % (50-85); Total Cells Counted 100
[2021-05-05 04:06] LABS: Calcium 7.7 MG/DL (8.5-10.1); Osmolality,Calculated 306.4 MOS/KG (273-304); Potassium 3.7 MMOL/L (3.5-5.1)
[2021-05-05] MEDS: ALBUTEROL INHALER 18 GM INH SCH ×5 (04:25→18:06)
[2021-05-05] MEDS ORDERED: POTASSIUM CHLORIDE 20 MEQ TABLET PO ONE (08:06)
[2021-05-05] MEDS: INSULIN LISPRO 100 UNIT/ML SUBCUT SCH ×4 (08:18→21:10)
[2021-05-05] MEDS ORDERED: FUROSEMIDE 20 MG/2 ML VIAL IV SCH (09:00)
[2021-05-05] MEDS ORDERED: FUROSEMIDE 40 MG/4 ML VIAL ONE (09:17)
[2021-05-05] MEDS: PANTOPRAZOLE 40 MG TABLET PO SCH (09:27)
[2021-05-05] MEDS: amLODIPine 5 MG TABLET PO SCH (09:28)
[2021-05-05] MEDS: FERROUS SULFATE 325 MG TABLET PO SCH (09:28)
[2021-05-05] MEDS: TICAGRELOR 90 MG TABLET PO SCH ×2 (09:28→21:10)
[2021-05-05] MEDS: DEXAMETHASONE 4 MG/1 ML VIAL IV SCH (09:33)
[2021-05-05] MEDS: CHOLECALCIFEROL 1,000 UNIT TABLET PO SCH (11:08)
[2021-05-05] MEDS: ZINC SULFATE 220 MG CAPSULE PO SCH (11:09)
[2021-05-05] MEDS: ASCORBIC ACID 500 MG TABLET PO SCH ×2 (11:09→21:10)
[2021-05-05] MEDS: NIACIN ER 500 MG TABLET PO SCH ×2 (12:23→13:23)
[2021-05-05] MEDS ORDERED: MAGNESIUM SULF RIDER 2 GM/50 ML PREMIX IV ONE (12:42)
[2021-05-05] MEDS: DOXYCYCLINE HYCLATE INJ 100 MG in SODIUM CHLORIDE 0.9% 100 ML IV SCH ×2 (13:23→15:49)
[2021-05-05] MEDS: sitaGLIPtin 25 MG TABLET PO SCH (21:10)
[2021-05-05] MEDS: ROSUVASTATIN 20 MG TABLET PO SCH (21:10)
[2021-05-05] MEDS: ZALEPLON 5 MG CAPSULE PO PRN (21:10)
[2021-05-06] MEDS: ALBUTEROL INHALER 18 GM INH SCH ×5 (03:00→16:50)
[2021-05-06] MEDS: DOXYCYCLINE HYCLATE INJ 100 MG in SODIUM CHLORIDE 0.9% 100 ML IV SCH ×2 (04:23→14:26)
[2021-05-06 06:06] LABS: Hematocrit 28.4 VOL% (42.0-52.0); Hemoglobin 9.2 GM/DL (14.0-18.0); Immature Granulocytes % 0.6 %; Immature Granulocytes Absolute 0.03 #; Lymphocytes # 0.3 10*3/uL (1.4-4.0); Mean Corpuscular HGB Conc 32.4 GM/DL (32-36); Mean Corpuscular Volume 91.9 FL (87-102); Monocytes % 4.7 % (1.7-12.7); Neutrophils % 88.7 % (38.7-73.9); Platelet Count 90 T/CUMM (130-400); Red Blood Count 3.09 MC/CUMM (3.8-5.5); Red Cell Distribution Width 13.6 % (9.3-17.3); White Blood Count 5.3 T/CUMM (4-12)
[2021-05-06 06:30] LABS: Calcium 8.2 MG/DL (8.5-10.1); Osmolality,Calculated 307.8 MOS/KG (273-304); Potassium 3.9 MMOL/L (3.5-5.1)
[2021-05-06 06:59] LABS: Hypochromia 1+; Microcytosis 1+; Platelet Estimate Decreased
[2021-05-06] MEDS: INSULIN LISPRO 100 UNIT/ML SUBCUT SCH ×4 (10:07→23:23)
[2021-05-06] MEDS: FUROSEMIDE 40 MG/4 ML VIAL IV SCH (10:11)
[2021-05-06] MEDS: DEXAMETHASONE 4 MG/1 ML VIAL IV SCH (10:12)
[2021-05-06] MEDS: PANTOPRAZOLE 40 MG TABLET PO SCH (10:14)
[2021-05-06] MEDS: ZINC SULFATE 220 MG CAPSULE PO SCH (10:15)
[2021-05-06] MEDS: NIACIN ER 500 MG TABLET PO SCH (10:15)
[2021-05-06] MEDS: FERROUS SULFATE 325 MG TABLET PO SCH (10:15)
[2021-05-06] MEDS: TICAGRELOR 90 MG TABLET PO SCH ×2 (10:15→22:01)
[2021-05-06] MEDS: ASCORBIC ACID 500 MG TABLET PO SCH ×2 (10:15→22:02)
[2021-05-06] MEDS: CHOLECALCIFEROL 1,000 UNIT TABLET PO SCH (10:15)
[2021-05-06] MEDS: amLODIPine 5 MG TABLET PO SCH (10:16)
[2021-05-06] MEDS: ROSUVASTATIN 20 MG TABLET PO SCH (22:01)
[2021-05-06] MEDS: sitaGLIPtin 25 MG TABLET PO SCH (22:02)
[2021-05-07] MEDS: DOXYCYCLINE HYCLATE INJ 100 MG in SODIUM CHLORIDE 0.9% 100 ML IV SCH ×2 (03:02→13:59)
[2021-05-07 05:05] LABS: Hematocrit 28.6 VOL% (42.0-52.0); Hemoglobin 9.3 GM/DL (14.0-18.0); Immature Granulocytes % 1.1 %; Lymphocytes # 0.3 10*3/uL (1.4-4.0); Lymphocytes % 3.3 % (21.2-54.2); Mean Corpuscular HGB Conc 32.5 GM/DL (32-36); Mean Corpuscular Volume 92.3 FL (87-102); Mean Platelet Volume 10.4 FL (9.6-12.0); Neutrophils % 89.6 % (38.7-73.9); Platelet Count 96 T/CUMM (130-400); White Blood Count 9.3 T/CUMM (4-12)
[2021-05-07 05:24] LABS: Calcium 8.1 MG/DL (8.5-10.1); Osmolality,Calculated 300.8 MOS/KG (273-304); Potassium 3.2 MMOL/L (3.5-5.1)
[2021-05-07 05:43] LABS: Hypochromia Slight; Lymphocytes 4 % (20-55); Platelet Estimate Decreased; Segmented Neutrophils 92 % (50-85); Total Cells Counted 100
[2021-05-07] MEDS: ALBUTEROL INHALER 18 GM INH SCH ×5 (08:06→15:00)
[2021-05-07] MEDS: INSULIN LISPRO 100 UNIT/ML SUBCUT SCH ×4 (08:44→21:55)
[2021-05-07] MEDS: FUROSEMIDE 40 MG/4 ML VIAL IV SCH (08:47)
[2021-05-07] MEDS: FERROUS SULFATE 325 MG TABLET PO SCH (08:48)
[2021-05-07] MEDS: ZINC SULFATE 220 MG CAPSULE PO SCH (08:48)
[2021-05-07] MEDS: diphenhydrAMINE CAP 25 MG CAPSULE PO PRN (08:48)
[2021-05-07] MEDS: PANTOPRAZOLE 40 MG TABLET PO SCH (08:48)
[2021-05-07] MEDS: ASCORBIC ACID 500 MG TABLET PO SCH ×2 (08:48→21:55)
[2021-05-07] MEDS: DEXAMETHASONE 4 MG/1 ML VIAL IV SCH (08:48)
[2021-05-07] MEDS: TICAGRELOR 90 MG TABLET PO SCH ×2 (08:49→21:55)
[2021-05-07] MEDS: NIACIN ER 500 MG TABLET PO SCH (08:49)
[2021-05-07] MEDS: CHOLECALCIFEROL 1,000 UNIT TABLET PO SCH (08:49)
[2021-05-07] MEDS: amLODIPine 5 MG TABLET PO SCH (08:49)
[2021-05-07] MEDS: sitaGLIPtin 25 MG TABLET PO SCH (21:55)
[2021-05-07] MEDS: ROSUVASTATIN 20 MG TABLET PO SCH (22:13)
[2021-05-08] MEDS: DOXYCYCLINE HYCLATE INJ 100 MG in SODIUM CHLORIDE 0.9% 100 ML IV SCH ×2 (01:10→12:19)
[2021-05-08] MEDS: ZALEPLON 5 MG CAPSULE PO PRN (01:18)
[2021-05-08 04:51] LABS: Hematocrit 31.1 VOL% (42.0-52.0); Hemoglobin 10.1 GM/DL (14.0-18.0); Immature Granulocytes % 0.8 %; Immature Granulocytes Absolute 0.08 #; Lymphocytes # 0.2 10*3/uL (1.4-4.0); Lymphocytes % 2.2 % (21.2-54.2); Mean Corpuscular HGB Conc 32.5 GM/DL (32-36); Mean Corpuscular Volume 91.7 FL (87-102); Mean Platelet Volume 10.6 FL (9.6-12.0); Monocytes % 7.1 % (1.7-12.7); Neutrophils % 89.9 % (38.7-73.9); Red Blood Count 3.39 MC/CUMM (3.8-5.5); Red Cell Distribution Width 14.1 % (9.3-17.3); White Blood Count 10.5 T/CUMM (4-12)
[2021-05-08 05:02] LABS: Platelet Count 77 T/CUMM (130-400)
[2021-05-08 05:17] LABS: Calcium 8.6 MG/DL (8.5-10.1); Osmolality,Calculated 300.8 MOS/KG (273-304); Potassium 2.9 MMOL/L (3.5-5.1)
[2021-05-08 05:35] LABS: Hypochromia 1+; Lymphocytes 4 % (20-55); Microcytosis 1+; Segmented Neutrophils 89 % (50-85); Total Cells Counted 100
[2021-05-08 05:36] LABS: Ovalocytes Slight; Platelet Estimate Decreased
[2021-05-08] MEDS: ALBUTEROL INHALER 18 GM INH SCH ×4 (07:18→15:50)
[2021-05-08] MEDS: INSULIN LISPRO 100 UNIT/ML SUBCUT SCH ×3 (08:39→18:14)
[2021-05-08] MEDS: ENOXAPARIN 30 MG/0.3 ML SYRINGE SUBCUT SCH (10:00)
[2021-05-08] MEDS: DEXAMETHASONE 4 MG/1 ML VIAL IV SCH (10:01)
[2021-05-08] MEDS: TICAGRELOR 90 MG TABLET PO SCH (10:03)
[2021-05-08] MEDS: FUROSEMIDE 40 MG/4 ML VIAL IV SCH (10:03)
[2021-05-08] MEDS: POTASSIUM CHLORIDE 20 MEQ TABLET PO SCH (10:03)
[2021-05-08] MEDS: diphenhydrAMINE CAP 25 MG CAPSULE PO PRN (10:03)
[2021-05-08] MEDS: amLODIPine 5 MG TABLET PO SCH (10:04)
[2021-05-08] MEDS: FERROUS SULFATE 325 MG TABLET PO SCH (10:04)
[2021-05-08] MEDS: ASCORBIC ACID 500 MG TABLET PO SCH (10:04)
[2021-05-08] MEDS: ZINC SULFATE 220 MG CAPSULE PO SCH (10:05)
[2021-05-08] MEDS: NIACIN ER 500 MG TABLET PO SCH (10:06)
[2021-05-08] MEDS: PANTOPRAZOLE 40 MG TABLET PO SCH (10:06)
[2021-05-08] MEDS: CHOLECALCIFEROL 1,000 UNIT TABLET PO SCH (10:06)
[2021-05-08] MEDS: ALPRAZolam 0.25 MG TABLET PO SCH (12:17)
[2021-05-09] MEDS: ALBUTEROL INHALER 18 GM INH SCH ×2 (00:09→00:10)
[2021-05-09] MEDS: ROSUVASTATIN 20 MG TABLET PO SCH (00:10)
[2021-05-09] MEDS: TICAGRELOR 90 MG TABLET PO SCH ×2 (00:10→16:32)
[2021-05-09] MEDS: sitaGLIPtin 25 MG TABLET PO SCH (00:10)
[2021-05-09] MEDS: INSULIN LISPRO 100 UNIT/ML SUBCUT SCH ×4 (00:10→17:52)
[2021-05-09] MEDS: ALPRAZolam 0.25 MG TABLET PO SCH ×2 (00:11→16:32)
[2021-05-09] MEDS: POTASSIUM CHLORIDE 20 MEQ TABLET PO SCH ×2 (00:11→16:31)
[2021-05-09] MEDS: ENOXAPARIN 30 MG/0.3 ML SYRINGE SUBCUT SCH ×2 (00:11→16:31)
[2021-05-09] MEDS: FUROSEMIDE 40 MG/4 ML VIAL IV SCH (00:11)
[2021-05-09] MEDS: ASCORBIC ACID 500 MG TABLET PO SCH ×2 (00:11→16:32)
[2021-05-09] MEDS: DOXYCYCLINE HYCLATE INJ 100 MG in SODIUM CHLORIDE 0.9% 100 ML IV SCH ×2 (00:39→18:30)
[2021-05-09 03:08] LABS: Basophils % 0.1 % (0.0-0.8); Hematocrit 32.5 VOL% (42.0-52.0); Hemoglobin 10.4 GM/DL (14.0-18.0); Immature Granulocytes % 0.9 %; Immature Granulocytes Absolute 0.08 #; Lymphocytes # 0.4 10*3/uL (1.4-4.0); Lymphocytes % 4.3 % (21.2-54.2); Mean Corpuscular Volume 93.1 FL (87-102); Mean Platelet Volume 11.5 FL (9.6-12.0); Monocytes % 5.3 % (1.7-12.7); Neutrophils % 89.4 % (38.7-73.9); Red Blood Count 3.49 MC/CUMM (3.8-5.5); Red Cell Distribution Width 14.5 % (9.3-17.3)
[2021-05-09 03:18] LABS: Platelet Count 72 T/CUMM (130-400)
[2021-05-09] MEDS: LORazepam 2 MG/1 ML VIAL IV PRN ×2 (03:30→18:31)
[2021-05-09 03:33] LABS: Hypochromia 1+; Lymphocytes 5 % (20-55); Microcytosis 1+; Platelet Estimate Decreased; Segmented Neutrophils 93 % (50-85); Total Cells Counted 100
[2021-05-09 03:42] LABS: Albumin 2.5 G/DL (3.4-5.0); Bilirubin,Total 0.9 MG/DL (0.20-1.00); Calcium 8.6 MG/DL (8.5-10.1); Osmolality,Calculated 309.3 MOS/KG (273-304); Potassium 4.3 MMOL/L (3.5-5.1); Total Protein 6.6 G/DL (6.4-8.2)
[2021-05-09] MEDS ORDERED: FUROSEMIDE 40 MG/4 ML VIAL IV ONE (08:59)
[2021-05-09] MEDS ORDERED: ZIPRASIDONE 20 MG/1 ML VIAL IM ONE (11:46)
[2021-05-09] MEDS: FERROUS SULFATE 325 MG TABLET PO SCH (17:51)
[2021-05-09] MEDS: NIACIN ER 500 MG TABLET PO SCH (17:51)
[2021-05-09] MEDS: amLODIPine 5 MG TABLET PO SCH (17:52)
[2021-05-09] MEDS: ZINC SULFATE 220 MG CAPSULE PO SCH (17:52)
[2021-05-09] MEDS: PANTOPRAZOLE 40 MG TABLET PO SCH (17:52)
[2021-05-09] MEDS: CHOLECALCIFEROL 1,000 UNIT TABLET PO SCH (17:52)
[2021-05-09] MEDS: DEXAMETHASONE 4 MG/1 ML VIAL IV SCH (18:30)
[2021-05-09] MEDS ORDERED: AMIODARONE 150 MG/3 ML VIAL IV ONE (20:33)
[2021-05-09] MEDS ORDERED: APIXABAN 5 MG TABLET PO SCH (21:00)
[2021-05-09] MEDS ORDERED: NOREPINEPHRINE 4 MG/4 ML VIAL IV ONE (21:05)
[2021-05-09] MEDS ORDERED: PHENYLEPHRINE DRIP 40 MG/250 ML PREMIX IV ONE (21:09)
[2021-05-09 21:32] LABS: ABG Base Excess -4.1 MMOL/L (-2.5-2.5); ABG Oxygen Saturation 99.9 % (95-100); ABG PCO2 46.7 MM HG (35-48); ABG PH 7.291 (7.35-7.45); ABG TCO2 20.8 MMOL/L (23-27)
[2021-05-09 21:56] LABS: Basophils % 0.1 % (0.0-0.8); Hematocrit 29.7 VOL% (42.0-52.0); Hemoglobin 9.1 GM/DL (14.0-18.0); Immature Granulocytes % 3.2 %; Immature Granulocytes Absolute 0.34 #; Lymphocytes # 0.4 10*3/uL (1.4-4.0); Lymphocytes % 3.7 % (21.2-54.2); Mean Corpuscular HGB Conc 30.6 GM/DL (32-36); Mean Corpuscular Volume 97.7 FL (87-102); Monocytes % 2.8 % (1.7-12.7); NRBC # 0.03 10*3/uL; Neutrophils % 90.2 % (38.7-73.9); Platelet Count 86 T/CUMM (130-400); Red Blood Count 3.04 MC/CUMM (3.8-5.5); Red Cell Distribution Width 14.9 % (9.3-17.3); White Blood Count 10.7 T/CUMM (4-12)
[2021-05-09] MEDS: PHENYLEPHRINE DRIP 40 MG/250 ML PREMIX IV PRN (21:57)
[2021-05-09 22:05] LABS: INR 1.5; PT Patient Result 16.6 SECS (10.5-12.0); Partial Thromboplastin Time 33.4 SECS (23.8-32.1)
[2021-05-09 22:21] LABS: Lymphocytes 6 % (20-55); Nucleated Red Blood Cells 1 (0-5); Segmented Neutrophils 90 % (50-85); Total Cells Counted 100
[2021-05-09 22:22] LABS: Platelet Estimate Decreased
[2021-05-09 22:23] LABS: Poikilocytosis 1+; Polychromasia Slight
[2021-05-09 22:24] LABS: Alanine Aminotransferase 225 U/L (16-61); Albumin 1.9 G/DL (3.4-5.0); Alkaline Phosphatase 135 U/L (45-117); Aspartate Amino Transferase 298 U/L (0-37); Blood Urea Nitrogen 59 MG/DL (7-18); Calcium 9.2 MG/DL (8.5-10.1); Carbon Dioxide 19 MMOL/L (21-32); Estimated Glom Filtration Rate 20 ML/MIN; Glucose 346 MG/DL (74-106); Osmolality,Calculated 333.6 MOS/KG (273-304); Potassium 4.7 MMOL/L (3.5-5.1); Sodium 153 MMOL/L (136-145); Total Protein 5.5 G/DL (6.4-8.2)
[2021-05-09 22:24] LABS: Schistocytes 1+
[2021-05-10] MEDS: TICAGRELOR 90 MG TABLET PO SCH ×3 (00:24→20:44)
[2021-05-10] MEDS: ASCORBIC ACID 500 MG TABLET PO SCH ×3 (00:25→20:45)
[2021-05-10] MEDS: sitaGLIPtin 25 MG TABLET PO SCH (00:25)
[2021-05-10] MEDS: POTASSIUM CHLORIDE 20 MEQ TABLET PO SCH ×3 (00:25→20:45)
[2021-05-10] MEDS: ALPRAZolam 0.25 MG TABLET PO SCH ×2 (00:25→08:53)
[2021-05-10] MEDS: ROSUVASTATIN 20 MG TABLET PO SCH ×2 (00:25→20:45)
[2021-05-10] MEDS: ALBUTEROL INHALER 18 GM INH SCH ×8 (00:27→22:53)
[2021-05-10] MEDS: INSULIN LISPRO 100 UNIT/ML SUBCUT SCH (00:27)
[2021-05-10 00:58] LABS: Bilirubin,Urine Negative (Negative); Blood, Urine Negative (Negative); Glucose,Urine (UA) 150 mg/dL (Negative); Hyaline Casts,Urine 9 /LPF (0-3); Ketones,Urine 5 mg/dL (Negative); Mucus,Urine Occasional /LPF (Occasional); Nitrite,Urine Negative (Negative); Protein,Urine 100 MG/DL; Urine Appearance Slightly Hazy (Clear); Urine Color Yellow (Yellow); Urine Specific Gravity 1.013 (1.001-1.035); Urine Urobilinogen < 2.0 EU/DL (<2.0)
[2021-05-10] MEDS ORDERED: ENOXAPARIN 60 MG/0.6 ML SYRINGE SUBCUT SCH (02:00)
[2021-05-10] MEDS: MIDAZOLAM 100 MG in SODIUM CHLORIDE 0.9% 80 ML IV PRN ×2 (02:48→14:30)
[2021-05-10 03:08] LABS: Basophils % 0.1 % (0.0-0.8); Hematocrit 30.3 VOL% (42.0-52.0); Hemoglobin 9.4 GM/DL (14.0-18.0); Immature Granulocytes % 1.4 %; Immature Granulocytes Absolute 0.23 #; Lymphocytes # 0.2 10*3/uL (1.4-4.0); Mean Corpuscular Volume 96.2 FL (87-102); Mean Platelet Volume 10.8 FL (9.6-12.0); Monocytes % 3.7 % (1.7-12.7); NRBC # 0.02 10*3/uL; Neutrophils % 93.8 % (38.7-73.9); Platelet Count 94 T/CUMM (130-400); Red Blood Count 3.15 MC/CUMM (3.8-5.5); Red Cell Distribution Width 15.1 % (9.3-17.3); White Blood Count 16.4 T/CUMM (4-12)
[2021-05-10 03:21] LABS: INR 1.5; PT Patient Result 16.2 SECS (10.5-12.0); Partial Thromboplastin Time 28.7 SECS (23.8-32.1)
[2021-05-10 03:24] LABS: CKMB % 5.6 %
[2021-05-10 03:33] LABS: Hypochromia 1+; Lymphocytes 1 % (20-55); Microcytosis 1+; Platelet Estimate Decreased; Segmented Neutrophils 97 % (50-85); Total Cells Counted 100
[2021-05-10] MEDS ORDERED: CISATRACURIUM 200 MG in SODIUM CHLORIDE 0.9% 180 ML IV PRN (03:35)
[2021-05-10] MEDS: fentaNYL INJ 1,250 MCG in SODIUM CHLORIDE 0.9% 225 ML IV PRN ×3 (03:41→22:50)
[2021-05-10] MEDS ORDERED: GLUCAGON 1 MG VIAL IM PRN (03:48)
[2021-05-10] MEDS ORDERED: DEXTROSE 50% 25 GM/50 ML VIAL IV PRN (03:48)
[2021-05-10 04:14] LABS: Calcium 9.2 MG/DL (8.5-10.1); Osmolality,Calculated 339.6 MOS/KG (273-304)
[2021-05-10] MEDS: DOXYCYCLINE HYCLATE INJ 100 MG in SODIUM CHLORIDE 0.9% 100 ML IV SCH ×2 (04:32→16:20)
[2021-05-10] MEDS: INSULIN REGULAR 100 UNIT/ML IV SCH ×2 (05:31→08:33)
[2021-05-10] MEDS: amLODIPine 5 MG TABLET PO SCH (08:13)
[2021-05-10 08:30] LABS: ABG Base Excess 3.5 MMOL/L (-2.5-2.5); ABG HCO3 27.6 MMOL/L (20-26); ABG PCO2 43.2 MM HG (35-48); ABG PH 7.424 (7.35-7.45); Allen Test Positive; Pt O2 Delivery Device Ventilator
[2021-05-10] MEDS: INSULIN REGULAR DRIP 100 ML IV PRN (08:30)
[2021-05-10] MEDS: PHENYLEPHRINE DRIP 40 MG/250 ML PREMIX IV PRN ×2 (08:31→19:01)
[2021-05-10] MEDS: DEXAMETHASONE 4 MG/1 ML VIAL IV SCH (08:45)
[2021-05-10] MEDS: ASPIRIN CHEW 81 MG TABLET PO SCH (08:51)
[2021-05-10] MEDS: CHOLECALCIFEROL 1,000 UNIT TABLET PO SCH (08:51)
[2021-05-10] MEDS: NIACIN ER 500 MG TABLET PO SCH (08:51)
[2021-05-10] MEDS: PANTOPRAZOLE 40 MG VIAL IV SCH (08:52)
[2021-05-10] MEDS: ZINC SULFATE 220 MG CAPSULE PO SCH (08:52)
[2021-05-10] MEDS: FERROUS SULFATE 325 MG TABLET PO SCH (08:52)
[2021-05-10] MEDS: ENOXAPARIN 60 MG/0.6 ML SYRINGE SUBCUT SCH (08:52)
[2021-05-10 09:43] LABS: Calcium 9.1 MG/DL (8.5-10.1); Osmolality,Calculated 338.7 MOS/KG (273-304); Potassium 3.8 MMOL/L (3.5-5.1)
[2021-05-10 10:06] LABS: Hematocrit 26.8 VOL% (42.0-52.0); Hemoglobin 8.4 GM/DL (14.0-18.0); Immature Granulocytes % 0.8 %; Immature Granulocytes Absolute 0.11 #; Lymphocytes # 0.2 10*3/uL (1.4-4.0); Lymphocytes % 1.7 % (21.2-54.2); Mean Corpuscular HGB Conc 31.3 GM/DL (32-36); Mean Platelet Volume 10.5 FL (9.6-12.0); Monocytes % 3.5 % (1.7-12.7); NRBC # 0.02 10*3/uL; Platelet Count 52 T/CUMM (130-400); Red Blood Count 2.82 MC/CUMM (3.8-5.5); Red Cell Distribution Width 15.1 % (9.3-17.3); White Blood Count 13.2 T/CUMM (4-12)
[2021-05-10 10:24] LABS: Hypochromia 1+; Lymphocytes 1 % (20-55); Segmented Neutrophils 98 % (50-85); Total Cells Counted 100
[2021-05-10 10:25] LABS: Microcytosis 1+; Ovalocytes Slight; Platelet Estimate Decreased
[2021-05-10 10:29] LABS: INR 1.6; PT Patient Result 17.1 SECS (10.5-12.0)
[2021-05-10] MEDS ORDERED: SODIUM CHLORIDE 0.45% 1,000 ML IV SCH (10:30)
[2021-05-10 10:48] LABS: Osmolality,Calculated 338.6 MOS/KG (273-304); Potassium 3.8 MMOL/L (3.5-5.1)
[2021-05-10] MEDS: PIPERACILLIN/TAZOBACTAM 3,375 MG in SODIUM CHLORIDE 0.9% 100 ML IV SCH ×2 (11:10→22:53)
[2021-05-10 16:05] LABS: Basophils % 0.1 % (0.0-0.8); Hematocrit 25.6 VOL% (42.0-52.0); Immature Granulocytes % 0.7 %; Immature Granulocytes Absolute 0.09 #; Lymphocytes # 0.3 10*3/uL (1.4-4.0); Lymphocytes % 1.9 % (21.2-54.2); Mean Corpuscular HGB Conc 31.3 GM/DL (32-36); Mean Corpuscular Volume 94.8 FL (87-102); Mean Platelet Volume 12.1 FL (9.6-12.0); Neutrophils % 93.3 % (38.7-73.9); Platelet Count 42 T/CUMM (130-400); White Blood Count 13.2 T/CUMM (4-12)
[2021-05-10 16:18] LABS: Calcium 8.4 MG/DL (8.5-10.1); Osmolality,Calculated 331.3 MOS/KG (273-304); Potassium 3.9 MMOL/L (3.5-5.1)
[2021-05-10] MEDS: DEXTROSE 5% NACL 0.45% 1,000 ML IV SCH (16:18)
[2021-05-10 16:26] LABS: Lymphocytes 1 % (20-55); Platelet Estimate Decreased; Polychromasia Slight; Segmented Neutrophils 95 % (50-85); Total Cells Counted 100
[2021-05-10 16:27] LABS: Hypochromia 1+; Microcytosis 1+
[2021-05-10 16:39] LABS: INR 1.6; Partial Thromboplastin Time 38.7 SECS (23.8-32.1)
[2021-05-10 22:05] LABS: Hematocrit 24.9 VOL% (42.0-52.0); Hemoglobin 7.7 GM/DL (14.0-18.0); Immature Granulocytes Absolute 0.13 #; Lymphocytes # 0.3 10*3/uL (1.4-4.0); Lymphocytes % 2.3 % (21.2-54.2); Mean Corpuscular HGB Conc 30.9 GM/DL (32-36); Mean Corpuscular Volume 95.8 FL (87-102); Mean Platelet Volume 12.2 FL (9.6-12.0); Monocytes % 3.1 % (1.7-12.7); NRBC # 0.02 10*3/uL; Neutrophils % 93.6 % (38.7-73.9); Red Cell Distribution Width 15.1 % (9.3-17.3)
[2021-05-10 22:09] LABS: Platelet Count 36 T/CUMM (130-400)
[2021-05-10 22:18] LABS: INR 1.5; PT Patient Result 16.4 SECS (10.5-12.0)
[2021-05-10 22:20] LABS: Osmolality,Calculated 329.3 MOS/KG (273-304); Potassium 3.7 MMOL/L (3.5-5.1)
[2021-05-10] MEDS ORDERED: POTASSIUM CHLORIDE RIDER 20 MEQ/100 ML PREMIX IV PRN (22:26)
[2021-05-10 22:39] LABS: Lymphocytes 2 % (20-55); Segmented Neutrophils 96 % (50-85); Total Cells Counted 100
[2021-05-10 22:41] LABS: Platelet Estimate Decreased; Polychromasia 1+; Schistocytes 1+
[2021-05-10 22:42] LABS: Target Cells 1+
[2021-05-10 22:45] LABS: Anisocytosis 1+; Poikilocytosis 1+
[2021-05-11] MEDS: ALBUTEROL INHALER 18 GM INH SCH ×6 (03:20→22:27)
[2021-05-11 04:00] LABS: ABG Base Excess 3.1 MMOL/L (-2.5-2.5); ABG HCO3 27.2 MMOL/L (20-26); ABG Oxygen Saturation 99.6 % (95-100); ABG PCO2 41.6 MM HG (35-48); ABG TCO2 25.8 MMOL/L (23-27)
[2021-05-11 04:15] LABS: Basophils % 0.1 % (0.0-0.8); Hematocrit 23.7 VOL% (42.0-52.0); Hemoglobin 7.4 GM/DL (14.0-18.0); Immature Granulocytes % 0.8 %; Immature Granulocytes Absolute 0.11 #; Lymphocytes # 0.4 10*3/uL (1.4-4.0); Lymphocytes % 2.5 % (21.2-54.2); Mean Corpuscular HGB Conc 31.2 GM/DL (32-36); Mean Corpuscular Volume 94.4 FL (87-102); Mean Platelet Volume 12.4 FL (9.6-12.0); NRBC # 0.02 10*3/uL; Neutrophils % 92.6 % (38.7-73.9); Red Blood Count 2.51 MC/CUMM (3.8-5.5); Red Cell Distribution Width 15.2 % (9.3-17.3); White Blood Count 14.2 T/CUMM (4-12)
[2021-05-11 04:17] LABS: Platelet Count 34 T/CUMM (130-400)
[2021-05-11 04:22] LABS: INR 1.5; Partial Thromboplastin Time 34.7 SECS (23.8-32.1)
[2021-05-11 04:33] LABS: Hypochromia 1+; Lymphocytes 3 % (20-55); Microcytosis 1+; Platelet Estimate Decreased; Segmented Neutrophils 94 % (50-85); Total Cells Counted 100
[2021-05-11] MEDS: DOXYCYCLINE HYCLATE INJ 100 MG in SODIUM CHLORIDE 0.9% 100 ML IV SCH (05:00)
[2021-05-11] MEDS: DEXTROSE 5% NACL 0.45% 1,000 ML IV SCH (05:00)
[2021-05-11] MEDS: PHENYLEPHRINE DRIP 40 MG/250 ML PREMIX IV PRN ×2 (05:00→13:55)
[2021-05-11 05:04] LABS: Albumin 1.8 G/DL (3.4-5.0); Bilirubin,Total 1.2 MG/DL (0.20-1.00); Calcium 7.8 MG/DL (8.5-10.1); Osmolality,Calculated 329.3 MOS/KG (273-304); Potassium 4.1 MMOL/L (3.5-5.1); Total Protein 4.9 G/DL (6.4-8.2)
[2021-05-11 05:24] LABS: Ferritin 2512.9 ng/mL (26-388)
[2021-05-11] MEDS: MIDAZOLAM 100 MG in SODIUM CHLORIDE 0.9% 80 ML IV PRN (06:45)
[2021-05-11] MEDS: DEXTROSE 5% 1,000 ML IV SCH ×2 (08:45→22:24)
[2021-05-11] MEDS: fentaNYL INJ 1,250 MCG in SODIUM CHLORIDE 0.9% 225 ML IV PRN ×2 (09:10→18:21)
[2021-05-11] MEDS: PANTOPRAZOLE 40 MG VIAL IV SCH (09:24)
[2021-05-11] MEDS: TICAGRELOR 90 MG TABLET PO SCH ×2 (09:25→20:44)
[2021-05-11] MEDS: NIACIN ER 500 MG TABLET PO SCH (09:25)
[2021-05-11] MEDS: CHOLECALCIFEROL 1,000 UNIT TABLET PO SCH (09:25)
[2021-05-11] MEDS: ENOXAPARIN 60 MG/0.6 ML SYRINGE SUBCUT SCH (09:25)
[2021-05-11] MEDS: FERROUS SULFATE 325 MG TABLET PO SCH (09:25)
[2021-05-11] MEDS: ZINC SULFATE 220 MG CAPSULE PO SCH (09:25)
[2021-05-11] MEDS: ASCORBIC ACID 500 MG TABLET PO SCH ×2 (09:25→20:44)
[2021-05-11] MEDS: POTASSIUM CHLORIDE 20 MEQ TABLET PO SCH (09:25)
[2021-05-11] MEDS: ASPIRIN CHEW 81 MG TABLET PO SCH (09:25)
[2021-05-11] MEDS: DEXAMETHASONE 4 MG/1 ML VIAL IV SCH (09:25)
[2021-05-11 10:10] LABS: Basophils % 0.1 % (0.0-0.8); Hematocrit 22.6 VOL% (42.0-52.0); Immature Granulocytes % 0.8 %; Immature Granulocytes Absolute 0.11 #; Lymphocytes # 0.4 10*3/uL (1.4-4.0); Lymphocytes % 2.9 % (21.2-54.2); Mean Corpuscular Volume 95.8 FL (87-102); Mean Platelet Volume 12.9 FL (9.6-12.0); Monocytes % 4.6 % (1.7-12.7); NRBC # 0.02 10*3/uL; Neutrophils % 91.6 % (38.7-73.9); Red Blood Count 2.36 MC/CUMM (3.8-5.5); Red Cell Distribution Width 15.3 % (9.3-17.3); White Blood Count 14.4 T/CUMM (4-12)
[2021-05-11 10:13] LABS: Platelet Count 32 T/CUMM (130-400)
[2021-05-11 10:27] LABS: INR 1.5; PT Patient Result 16.1 SECS (10.5-12.0); Partial Thromboplastin Time 35.3 SECS (23.8-32.1)
[2021-05-11 10:28] LABS: Hypochromia 1+; Lymphocytes 1 % (20-55); Microcytosis 1+; Nucleated Red Blood Cells 1 (0-5); Platelet Estimate Decreased; Segmented Neutrophils 95 % (50-85); Total Cells Counted 100
[2021-05-11 11:14] LABS: Calcium 7.5 MG/DL (8.5-10.1); Osmolality,Calculated 325.7 MOS/KG (273-304); Potassium 4.4 MMOL/L (3.5-5.1)
[2021-05-11] MEDS: PIPERACILLIN/TAZOBACTAM 3,375 MG in SODIUM CHLORIDE 0.9% 100 ML IV SCH ×2 (11:58→22:27)
[2021-05-11] MEDS: FAMOTIDINE 20 MG/2 ML VIAL IV SCH (11:59)
[2021-05-11] MEDS ORDERED: SODIUM CHLORIDE 0.9% 1,000 ML IV PRN (12:32)
[2021-05-11 17:17] LABS: ABG Base Excess -2.4 MMOL/L (-2.5-2.5); ABG HCO3 22.4 MMOL/L (20-26); ABG Oxygen Saturation 98.1 % (95-100); ABG PCO2 46.2 MM HG (35-48); ABG PH 7.319 (7.35-7.45); ABG TCO2 22.1 MMOL/L (23-27); Pt O2 Delivery Device Ventilator
[2021-05-11 18:06] LABS: Basophils % 0.1 % (0.0-0.8); Hematocrit 28.2 VOL% (42.0-52.0); Immature Granulocytes % 0.8 %; Immature Granulocytes Absolute 0.14 #; Lymphocytes # 0.2 10*3/uL (1.4-4.0); Lymphocytes % 1.2 % (21.2-54.2); Mean Corpuscular HGB Conc 31.6 GM/DL (32-36); Mean Corpuscular Volume 97.2 FL (87-102); Mean Platelet Volume 12.5 FL (9.6-12.0); Monocytes % 4.7 % (1.7-12.7); NRBC # 0.07 10*3/uL; Neutrophils % 93.2 % (38.7-73.9); Platelet Count 40 T/CUMM (130-400); Red Cell Distribution Width 15.2 % (9.3-17.3); White Blood Count 18.1 T/CUMM (4-12)
[2021-05-11 18:10] LABS: Hemoglobin 8.9 GM/DL (14.0-18.0)
[2021-05-11 18:30] LABS: Albumin 1.7 G/DL (3.4-5.0); Bilirubin,Total 0.6 MG/DL (0.20-1.00); CKMB % 7.6 %; Calcium 7.1 MG/DL (8.5-10.1); Osmolality,Calculated 324.9 MOS/KG (273-304); Potassium 5.3 MMOL/L (3.5-5.1); Total Protein 5.1 G/DL (6.4-8.2)
[2021-05-11 18:33] LABS: INR 1.5; PT Patient Result 16.4 SECS (10.5-12.0)
[2021-05-11 18:36] LABS: Anisocytosis 1+; Band Neutrophils 3 % (0-10); Burr Cells 1+; High Sensitive Troponin I* 1722.2 ng/L (0-78); Lymphocytes 3 % (20-55); Macrocytosis 1+; Metamyelocytes 1 %; Microcytosis Slight; Poikilocytosis 1+; Segmented Neutrophils 90 % (50-85); Total Cells Counted 100
[2021-05-11 18:37] LABS: Hypochromia Slight; Platelet Estimate Decreased; Polychromasia 1+; Schistocytes Slight
[2021-05-11] MEDS ORDERED: PHENYLEPHRINE INJ 160 MG in SODIUM CHLORIDE 0.9% 234 ML IV PRN (19:01)
[2021-05-11] MEDS: ROSUVASTATIN 20 MG TABLET PO SCH (20:44)
[2021-05-11 22:31] VITALS: BP 105/62
[2021-05-12 00:24] LABS: Calcium 7.2 MG/DL (8.5-10.1); Osmolality,Calculated 323.3 MOS/KG (273-304); Potassium 5.7 MMOL/L (3.5-5.1)
[2021-05-12 00:42] LABS: Basophils % 0.1 % (0.0-0.8); Hematocrit 33.1 VOL% (42.0-52.0); Hemoglobin 10.4 GM/DL (14.0-18.0); Immature Granulocytes % 0.9 %; Immature Granulocytes Absolute 0.14 #; Lymphocytes # 0.4 10*3/uL (1.4-4.0); Lymphocytes % 2.2 % (21.2-54.2); Mean Corpuscular HGB Conc 31.4 GM/DL (32-36); Mean Corpuscular Volume 95.9 FL (87-102); Mean Platelet Volume 13.3 FL (9.6-12.0); Monocytes % 4.3 % (1.7-12.7); NRBC # 0.08 10*3/uL; Neutrophils % 92.5 % (38.7-73.9); Red Blood Count 3.45 MC/CUMM (3.8-5.5); Red Cell Distribution Width 15.7 % (9.3-17.3); White Blood Count 16.4 T/CUMM (4-12)
[2021-05-12 00:51] LABS: Platelet Count 39 T/CUMM (130-400)
[2021-05-12 00:57] LABS: INR 1.5; PT Patient Result 15.9 SECS (10.5-12.0); Partial Thromboplastin Time 40.7 SECS (23.8-32.1)
[2021-05-12 01:06] LABS: Anisocytosis 1+; Lymphocytes 1 % (20-55); Nucleated Red Blood Cells 1 (0-5); Platelet Estimate Decreased; Polychromasia 1+; Segmented Neutrophils 95 % (50-85); Total Cells Counted 100
[2021-05-12 01:09] LABS: Acanthocytes 1+
[2021-05-12] MEDS: INSULIN REGULAR DRIP 100 ML IV PRN (02:04)
[2021-05-12] MEDS: ALBUTEROL INHALER 18 GM INH SCH ×4 (02:16→15:35)
[2021-05-12 03:24] LABS: ABG Base Excess -5.3 MMOL/L (-2.5-2.5); ABG HCO3 20.1 MMOL/L (20-26); ABG Oxygen Saturation 98.2 % (95-100); ABG PCO2 50.2 MM HG (35-48); ABG PH 7.254 (7.35-7.45); ABG TCO2 20.4 MMOL/L (23-27); Allen Test Positive; Pt O2 Delivery Device Ventilator
[2021-05-12 03:27] LABS: Basophils % 0.1 % (0.0-0.8); Hematocrit 32.7 VOL% (42.0-52.0); Hemoglobin 10.2 GM/DL (14.0-18.0); Immature Granulocytes % 0.8 %; Immature Granulocytes Absolute 0.13 #; Lymphocytes # 0.3 10*3/uL (1.4-4.0); Lymphocytes % 1.9 % (21.2-54.2); Mean Corpuscular HGB Conc 31.2 GM/DL (32-36); Mean Corpuscular Volume 96.5 FL (87-102); Mean Platelet Volume 12.6 FL (9.6-12.0); Monocytes % 4.8 % (1.7-12.7); NRBC # 0.09 10*3/uL; Neutrophils % 92.4 % (38.7-73.9); Red Blood Count 3.39 MC/CUMM (3.8-5.5); Red Cell Distribution Width 15.7 % (9.3-17.3); White Blood Count 15.5 T/CUMM (4-12)
[2021-05-12 03:33] LABS: Platelet Count 37 T/CUMM (130-400)
[2021-05-12 03:47] LABS: Band Neutrophils 8 % (0-10); Lymphocytes 4 % (20-55); Nucleated Red Blood Cells 1 (0-5); Segmented Neutrophils 85 % (50-85); Total Cells Counted 100
[2021-05-12 03:48] LABS: Microcytosis 1+
[2021-05-12 03:49] LABS: Acanthocytes Few; Ovalocytes Slight; Platelet Estimate Decreased
[2021-05-12 03:57] LABS: Albumin 1.7 G/DL (3.4-5.0); Bilirubin,Total 0.6 MG/DL (0.20-1.00); Calcium 6.8 MG/DL (8.5-10.1); Ferritin 2096.1 ng/mL (26-388); Osmolality,Calculated 318.6 MOS/KG (273-304); Potassium 5.5 MMOL/L (3.5-5.1); Total Protein 5.2 G/DL (6.4-8.2)
[2021-05-12] MEDS ORDERED: METOPROLOL TARTRATE 5 MG/5 ML VIAL IV PRN (07:09)
[2021-05-12 09:17] LABS: ABG Base Excess -4.4 MMOL/L (-2.5-2.5); ABG HCO3 20.8 MMOL/L (20-26); ABG Oxygen Saturation 97.1 % (95-100); ABG PCO2 46.7 MM HG (35-48); ABG PH 7.288 (7.35-7.45); ABG PO2 90.8 MM HG (80-95); ABG TCO2 20.4 MMOL/L (23-27); Allen Test Positive; Pt O2 Delivery Device Ventilator
[2021-05-12] MEDS: DEXAMETHASONE 4 MG/1 ML VIAL IV SCH (09:18)
[2021-05-12] MEDS: FERROUS SULFATE 325 MG TABLET PO SCH (09:19)
[2021-05-12] MEDS: CHOLECALCIFEROL 1,000 UNIT TABLET PO SCH (09:19)
[2021-05-12] MEDS: TICAGRELOR 90 MG TABLET PO SCH (09:19)
[2021-05-12] MEDS: ASCORBIC ACID 500 MG TABLET PO SCH (09:19)
[2021-05-12] MEDS: ZINC SULFATE 220 MG CAPSULE PO SCH (09:19)
[2021-05-12] MEDS: NIACIN ER 500 MG TABLET PO SCH (09:19)
[2021-05-12] MEDS: ASPIRIN CHEW 81 MG TABLET PO SCH (09:19)
[2021-05-12] MEDS: FAMOTIDINE 20 MG/2 ML VIAL IV SCH (11:28)
[2021-05-12] MEDS: PIPERACILLIN/TAZOBACTAM 3,375 MG in SODIUM CHLORIDE 0.9% 100 ML IV SCH (11:28)
[2021-05-12] MEDS ORDERED: SODIUM CHLORIDE 23.4% CONC INJ 38.5 MEQ in STERILE WATER INJ 1,000 ML IV SCH (12:00)
[2021-05-12] MEDS ORDERED: CLINDAMYCIN INJ 600 MG/50 ML PREMIX IV SCH (12:00)
[2021-05-12] MEDS ORDERED: DEXTROSE 10% 250 ML BAG IV PRN (12:01)
[2021-05-12] MEDS ORDERED: SODIUM POLYSTYRENE SULFATE 15 GM/60 ML BOTTLE PO ONE (13:04)
[2021-05-12] MEDS ORDERED: INSULIN REGULAR 10 UNIT, CALCIUM GLUCONATE 1,000 MG in DEXTROSE 10% 250 ML IV ONE (14:00)
[2021-05-12] MEDS ORDERED: CEFEPIME 1,000 MG in SODIUM CHLORIDE 0.9% 100 ML IV SCH (14:00)
[2021-05-12] MEDS ORDERED: INSULIN LISPRO 100 UNIT/ML SUBCUT SCH (14:00)
[2021-05-12] MEDS ORDERED: methylPREDNISolone SOD SUC 40 MG/1 ML VIAL IV SCH (14:00)
[2021-05-12] MEDS ORDERED: metroNIDAZOLE 500 MG TABLET PO SCH (15:00)
[2021-05-12] MEDS ORDERED: MORPHINE 2 MG/1 ML SYRINGE IV PRN (15:53)
[2021-05-12] MEDS ORDERED: LORazepam 2 MG/1 ML VIAL IV PRN (15:53)
[2021-05-12] MEDS ORDERED: MORPHINE 2 MG/1 ML SYRINGE ONE (15:56)
== END 2021-05-12 16:16 | disposition expired | DRG 208 ==
LOC: N.ED 17:48 → N.TELEN 05-05 02:09 → SUATTDRO 05-05 02:10 → N.TELEN 05-05 02:10 → N.CC 05-09 21:23
PROVIDERS: ADMIT Internal Medicine; ATTEND Internal Medicine